=== PATIENT | male | born 1965 | race Caucasian/White ===

== ENCOUNTER → 2017-07-21 09:49 | Outpatient (CLI) | payer BC, SELFPAY ==
[2016-11-25 13:03] VITALS: BMI 32.7
[2017-07-21 11:58] LABS: Hematocrit 46.2 % (40-54); Mean Corp Hgb Conc 34.6 g/gl (32-36); Mean Corpuscular Hgb 32.3 pg (27.0-32.0); Mean Corpuscular Volume 93.3 fL (80-94); Mean Platelet Vol. 10.2 fl (6.2-12.0); Platelet Count 200 K/mm3 (150-450); RBC Distribution Width CV 13.8 % (11.6-14.6); RBC Distribution Width SD 45.8 fl (35.1-43.9); Red Blood Count 4.95 M/mm3 (4.6-6.2); Scan Indicated on CBC? Y/N NO; White Blood Count 5.6 K/mm3 (4.4-11.0)
[2017-07-21 12:08] LABS: Erythrocyte Sedimentation Rate 12 mm/hr (0-20)
[2017-07-21 12:28] LABS: ALB/GLOB Ratio 1.1 RATIO (0.9-2.4); AST(SGOT) 18 U/L (15-37); Alanine Aminotransfer ALT/SGPT 45 U/L (16-61); Albumin, Serum 4.1 g/dL (3.2-5.0); Alkaline Phosphatase 81 U/L (45-117); Anion Gap 6 (5-15); BUN 12 mg/dL (7-18); BUN/Creat Ratio 11.9 RATIO (10-20); CRP 4.83 mg/L (0.0-3.0); Calcium,Total 9.1 mg/dL (8.5-10.1); Chloride 105 mmol/L (98-107); Creatinine, Serum 1.01 mg/dL (0.70-1.30); EST Glomerular Filtration Rate 83 mL/min (>60); Est Glom Filt Rate - Afr Amer 100 mL/min (>60); Globulin 3.7 g/dL (2.2-4.2); Glucose 91 mg/dL (74-106); Potassium 3.7 mmol/L (3.5-5.1); Protein, Total 7.8 g/dL (6.4-8.2); Sodium Level 140 mmol/L (136-145)
== END ==
PROVIDERS: Family Provider Family Medicine; PCP Family Medicine
DX: Z79.899 Other long term (current) drug therapy (principal)
CPT/HCPCS: 36415; 80053; 85027; 85652; 86140

== ENCOUNTER 2018-08-22 14:56 | Observation (INO) | payer SELFPAY ==
[2016-11-25 13:03] VITALS: BMI 32.7
[2018-08-22] VITALS (11 sets, daily range): BP systolic 116–147; BP diastolic 76–97; PULSE 62–90; RESP 14–19; TEMP 36.6–37.5; O2SAT 96–100; BMI 35.6; BMI 34.7; BMI 35.7
--- NOTE | 2018-08-22 15:01 | RAD_ITS ---
STUDY: X-RAY CHEST REASON FOR EXAM: Male, 53 years old. Chest pain. TECHNIQUE: Single AP portable view of the chest. COMPARISON: 23 Oct 2016 FINDINGS: The lungs are clear and expanded. There is no demonstrated pleural abnormality. Normal size heart. Normal mediastinum and joe. Normal visualized pulmonary arteries. Normal visualized aortic arch and descending thoracic aorta. Normal visualized thoracic spine. Normal visualized ribs, clavicles, and shoulders. There is no demonstrated abnormality of the visualized soft tissue structures of the upper abdomen. RAD/Chest 1 View (Portable) IMPRESSION: No evidence of acute cardiopulmonary process. Electronically Signed: Donny Chopra DO at 15:35 EDT , Service support ,
--- NOTE | 2018-08-22 15:01 | EKG12_ITS ---
Test Reason : CP ADMISSION Blood Pressure : / mmHG Vent. Rate : 068 BPM Atrial Rate : 068 BPM P-R Int : 140 ms QRS Dur : 092 ms QT Int : 396 ms P-R-T Axes : 036 014 014 degrees QTc Int : 421 ms Normal sinus rhythm Normal ECG When compared with ECG of 22-AUG-2018 17:24, MANUAL COMPARISON REQUIRED, DATA IS UNCONFIRMED Confirmed by CRAIG JIN, SHIREEN ([id number]), greeting card editor BHUMI TRENT ([id number]) on 08/25/2018 1:20:05 PM Referred By: Bassam Escobar Confirmed By:SHIREEN SRINIVASAN MD
[2018-08-22 15:19] LABS: Absolute Lymphocyte Count 1.03 X10^3/ul (0.83-4.51); Absolute Neutrophil Count 3.4 X10^3/uL (2.0-7.7); Basophil# 0.03 X10^3/uL; Basophil% 0.6 % (0-1); Eosinophil# 0.11 X10^3/uL; Eosinophils% 2.1 % (0-5); Hematocrit 46.6 % (40-54); Hemoglobin 15.7 g/dl (13.0-16.5); Lymphocyte # 1.03 X10^3/ul (4.0); Lymphocyte % 19.8 % (19-41); Mean Corp Hgb Conc 33.7 g/gl (32-36); Mean Corpuscular Hgb 31.7 pg (27.0-32.0); Monocyte% 11.6 % (0-10); Neutrophil # 3.41 X10^3/uL (2.7-7.7); Neutrophil % 65.7 % (47-70); POSITIVE COUNT NO; POSITIVE DIFFERENTIAL NO; POSITIVE MORPHOLOGY NO; Platelet Count 168 K/mm3 (150-450); RBC Distribution Width CV 14.4 % (11.6-14.6); RBC Distribution Width SD 48.4 fl (35.1-43.9); Red Blood Count 4.96 M/mm3 (4.6-6.2); White Blood Count 5.2 K/mm3 (4.4-11.0)
[2018-08-22 16:06] LABS: Anion Gap 7 (5-15); BUN 12 mg/dL (7-18); BUN/Creat Ratio 10.2 RATIO (10-20); Calcium,Total 8.7 mg/dL (8.5-10.1); Chloride 112 mmol/L (98-107); Creatinine, Serum 1.18 mg/dL (0.70-1.30); EST Glomerular Filtration Rate 69 mL/min (>60); Est Glom Filt Rate - Afr Amer 83 mL/min (>60); Estimated Creatinine Clearance 68.47 ml/min; Glucose 130 mg/dL (74-106); Potassium 3.8 mmol/L (3.5-5.1); Sodium Level 144 mmol/L (136-145)
--- NOTE | 2018-08-22 16:16 | ED.DCSUM_ITS ---
- ER Visit Summary Date of Service: 08/22/18 Chief Complaint: [Chest pain] History of Present Illness: The patient is a 53 M [presents the emergency department complaint of chest discomfort that started this morning. Patient had intermittent episodes lasting anywhere from 10-15 seconds or longer at times. Patient describes it as a tightness exam was given him a bear hug with some sharp component at times. Patient also has had discomfort into his left arm. He is felt nauseated and short of breath. Patient states symptoms are similar to what he experienced prior to needing cardiac stents several years ago. Patient denies recent travel or surgery. He has no DVT history. Patient does have a history of coronary artery disease, hypertension, high cholesterol, and cardiac stents. He denies any fever or cough or recent illness.] Physical Examination: [HEENT-PERRLA, EOMI. Cranial nerves II through XII grossly intact. TMs clear. Mucous membranes moist. No adenopathy. Cardiovascular-regular rate and rhythm without murmur or ectopy Lungs-clear to auscultation, chest wall stable without crepitus or subcu emphysema Abdomen-normoactive bowel sounds, soft, nontender, no rebound or rigidity, no peritoneal signs. Extremities-intact ?4, normal range of motion, normal pulses, atraumatic] Test Results: [EKG obtained arrival shows sinus rhythm with a ventricular rate of 92 bpm with no acute I segment changes. CBC with differential is normal. C hemistries were normal. Troponin was less than 0.015. Chest x-ray showed nothing acute.] Emergency Department Course and Treatment: [Patient had already taken Plavix today and he took aspirin last evening. I did order patient sublingual nitroglycerin however when the nurse attempted to give it he stated that his pain had resolved and it has been intermittent.] Treatment Plan: [Case will be discussed with hospitalist will evaluate patient for admission] Disposition: [Admit] Impression: [Chest pain-rule out acute coronary syndrome] This note was generated with [employer] dictation software. It may contain incorrect words, spelling, and punctuation that were not noted in review of the chart prior to signing ED Disposition - Plan for ED Patient: Referrals: Mendoza Harris [Primary Care Provider] -
--- NOTE | 2018-08-22 16:27 | PCM.HP.STD ---
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 transplanted heart: [place] heart Qualified Code(s): I25.119 - Atherosclerotic heart disease of [place] coronary artery with unspecified angina pectoris Comment: PCI-FLORY-Mid LAD 11/25/2016 [id number], MId and 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 06/25/2016 (5) Hypercholesterolemia Status: Chronic (6) Non-STEMI (non-ST elevated myocardial infarction) Status: Chronic History of Present Illness Date of Admission: 08/22/18 Chief Complaint: Chest pain. The patient is a 53 year old M who presents emergency room due to chest pain. Patient states he has had chest pain since 6:30 this morning. He describes both sharp and pressure-like pain with radiation down left arm. He states his symptoms feel similar to past AL which required stenting. He follows with Dr. Monge. Additionally, he reports ongoing shortness of breath and fatigue with minimal exertion. He states he gets short of breath even with showering. He denies dizziness, lightheadedness, palpitations. He does report he has had increased alcohol intake recently. He states he drinks about four 24 ounce beers most days. His last stress test was in May 2017 which was normal. He has a past medical history of CAD status post stents, hyperlipidemia, obstructive sleep apnea, hypertension, arthritis. Past Medical History Past Medical History (Chronic Problems): Chronic Problems (Last Updated 08/19/18 @ 12:42 by Enid Murphy) Hypertension (Chronic) 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) History of coronary artery stent placement (Chronic 11/25/16) PCI-FLORY-Mid LAD with 3.00 x 24 synergy FLORY 11/25/2016; [id number], Mid and Distal RCA all with 3.0 x 28 mm Promus synergy stents 06/25/16; Atherosclerotic heart disease [place]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 (Chronic) PCI-FLORY-Mid LAD 11/25/2016 [id number], MId and 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 06/25/2016 Hypercholesterolemia (Chronic) Non-STEMI (non-ST elevated myocardial infarction) (Chronic) Medical History: Medical History (Last Updated 08/19/18 @ 12:42 by Enid Murphy) Hypertension (Chronic) I10 dissection of coronary into ascending aorta (Chronic) Onset Date: 06/25/16 Atherosclerotic heart disease [place]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 (Chronic) I25.119 PCI-FLORY-Mid LAD 11/25/2016 [id number], MId and 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 06/25/2016 Hypercholesterolemia (Chronic) E78.00 Non-STEMI (non-ST elevated myocardial infarction) (Chronic) I21.4 BPH (benign prostatic hyperplasia) N40.0 GERD (gastroesophageal reflux disease) K21.9 Inflammatory polyarthropathy M06.4 Allergies atorvastatin [From Lipitor] Adverse Reaction (Severe, Verified 08/19/18 12:43) mylagias hydrocodone bitartrate [From Vicodin] Adverse Reaction (Intermediate, Verified 08/19/18 12:43) Itching pravastatin Adverse Reaction (Verified 08/19/18 12:43) GI upset and sore mouth Home Medications: Ambulatory Orders Medication Instructions Recorded Trazodone HCl 75 mg PO QHS 06/24/16 Nitroglycerin 0.4 mg SL PRN PRN 08/11/16 aspirin 81 mg chewable tablet 81 mg PO DAILY@0800 #90 tab 11/30/17 clopidogrel 75 mg tablet 75 mg PO DAILY #30 tab 11/30/17 doxazosin 4 mg tablet 4 mg PO QHS #30 tab 11/30/17 losartan 25 mg tablet 25 mg PO QDAY #30 tab 11/30/17 Metoprolol Tartrate 25 mg PO DAILY 08/22/18 Omeprazole Magnesium [Prilosec Otc] 20 mg PO DAILY 08/22/18 Surgical History: Surgical History (Last Updated 08/19/18 @ 12:42 by Enid Murphy) History of coronary artery stent placement (Chronic) Onset Date: 11/25/16 Z95.5 PCI-FLORY-Mid LAD with 3.00 x 24 synergy FLORY 11/25/2016; [id number], Mid and Distal RCA all with 3.0 x 28 mm Promus synergy stents 06/25/16; Hx of hand surgery Z98.890 secondary to crushing injury Surgical History: - - right shoulder surgeries, right wrist surgery after crush injury, left wrist surg, right knee arthroplastic surgery, coronary artery stent placement. Psychiatric History: No pertinent psych hx Lives: Spouse/ Significant Other Smoking Status: Never smoker Alcohol: Heavy Drugs: None - *Family History Maternal Family History: Family History (Last Reviewed 08/22/18 @ 16:55 by ANTONIO Cross) Mother CAD (coronary artery disease) Rheumatic fever Brother CAD (coronary artery disease) History Items: - - Valve replacement secondary to rheumatic fever. Denies known maternal coronary artery disease. Paternal Family History: Family History (Last Reviewed 08/22/18 @ 16:55 by ANTONIO Cross) Mother CAD (coronary artery disease) Rheumatic fever Brother CAD (coronary artery disease) History Items: - - Denies known paternal cardiac history. Review of Systems Constitutional: Reports: Fatigue. Denies: Chills, Fever, Weight Change HEENT: Denies: Head Aches, Sinus Congestion, Sinus Drainage Cardiovascular: Reports: Chest Pain, Chest Pressure. Denies: Edema, Light Headedness, Palpitations, Syncope Respiratory: Reports: Shortness of breath upon exertion. Denies: Cough, Shortness of breath at rest, Sputum production Gastrointestinal: Denies: Abdominal Pain, Nausea, Vomiting Genitourinary: Denies: Dysuria Musculoskeletal: Reports: - - Generalized pain secondary to diffuse arthritis. Skin: Denies: Rash, Wounds Neurological: Denies: Numbness, Tingling, Focal weakness Psychiatric: Denies: Anxiety, Depression, Homicidal Ideations, Suicidal Ideations Hematologic/ Lymphatic: Denies: Easy Bruising, Easy Bleeding VTE Information - Inpt Only VTE Present on Admission: No VTE Mechan Device Prophylaxis: None VTE Pharm Prophylaxis ordered?: Yes - Physical Exam General: Alert, Oriented x3, Cooperative HEENT: Atraumatic, PERRLA, EOMI, Normocephalic Neck: Supple, No JVD, Negative Carotid Bruits Lungs: Clear to auscultation, Normal air movement Cardiovascular: Regular rate, Regular Rhythm, Normal S1, Normal S2, No murmurs Abdomen: Bowel Sounds Present, Soft, Non Tender, Non-Distended, Obese Extremities: No clubbing, No cyanosis, No edema, Capillary Refill Less than 3 Seconds Skin: No rashes, No breakdown Musculoskeletal: No Tenderness to Palpation of Joints or Extremities Neurological: Cranial nerves II-XII grossly intact, Neuro grossly intact Psych/Mental Status: Normal Affect, Appropriate Vital Signs Temp Pulse Resp BP Pulse Ox 99.5 F H 77 14 129/77 H 96 08/22/18 14:57 08/22/18 16:18 08/22/18 16:18 08/22/18 16:18 08/22/18 16:18 Oxygen Flow Rate (L/min) 2 Oxygen Delivery Method Nasal Cannula Weight: 227 lb 15.327 oz Body Mass Index (BMI) 35.6 Laboratory Tests Past 24 Hrs 08/22/18 08/22/18 15:07 15:07 WBC 5.2 RBC 4.96 Hgb 15.7 Hct 46.6 MCV 94.0 MCH 31.7 MCHC 33.7 RDW 14.4 RDW Differential 48.4 H Plt Count 168 MPV 10.0 Immature Gran % (Auto) 0.200 Neut % (Auto) 65.7 Lymph % (Auto) 19.8 Sharp % (Auto) 11.6 H Eos % (Auto) 2.1 Baso % (Auto) 0.6 Absolute Neuts (auto) 3.4 Absolute Lymphs (auto) 1.03 Total Counted Not Reportable Sodium 144 Potassium 3.8 Chloride 112 H Carbon Dioxide 25.0 Anion Gap 7 BUN 12 Creatinine 1.18 Estim Creat Clear Calc 68.47 Est GFR (MDRD) Af Amer 83 Est GFR (MDRD) Non-Af 69 BUN/Creatinine Ratio 10.2 Glucose 130 H Calcium 8.7 Troponin I < 0.015 Assessment/Plan 1. Chest pain, history of CAD status post stent to RCA and LAD-follows with Dr. Monge. Continue aspirin, plavix, beta adriano. Reported allergy to statin. Check fasting lipid panel. Trend enzymes. Repeat EKG in a.m. Stress test in a.m. Cardiology consult if stress test abnormal. 2. Hypertension- stable, continue home doxazosin, losartan, metoprolol. 3. Hyperlipidemia- Continue statin. 4. Obstructive sleep apnea-patient underwent sleep study January 2017 which recommended CPAP and avoiding sedating agents including alcohol. Patient not using CPAP. 5. Diffuse Arthritis-patient reports he has been on long-term disability secondary to physical debility as a result of diffuse arthritis. Encouraged outpatient follow up with ortho/pain management. 6. Obesity-encouraged diet and lifestyle modifications. DVT prophylaxis-Lovenox sc This patient was seen by ANTONIO Cross under the supervision of Dr. Escobar. <Bassam Escobar - Last Filed: 08/22/18 17:37> History of Present Illness The patient is a 53 year old M came to ED with chest pain since 6:30 AM. I agree with the characteristics of the chest pain as described above, sharp pressure-like with radiation down to the left arm while he was sitting, associated with mild shortness of breath. Patient also said he is having similar chest pain since November 2016 when he had the last chest pain sometimes with exertion and sometimes even at rest. Patient had last stress test in May 2017 which was normal. [] Past Medical History Medical History: Medical History (Last Updated 08/19/18 @ 12:42 by Enid Murphy) Hypertension (Chronic) I10 dissection of coronary into ascending aorta (Chronic) Onset Date: 06/25/16 Atherosclerotic heart disease [place]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 (Chronic) I25.119 PCI-FLORY-Mid LAD 11/25/2016 [id number], MId and 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 06/25/2016 Hypercholesterolemia (Chronic) E78.00 Non-STEMI (non-ST elevated myocardial infarction) (Chronic) I21.4 BPH (benign prostatic hyperplasia) N40.0 GERD (gastroesophageal reflux disease) K21.9 Inflammatory polyarthropathy M06.4 Allergies atorvastatin [From Lipitor] Adverse Reaction (Severe, Verified 08/19/18 12:43) mylagias hydrocodone bitartrate [From Vicodin] Adverse Reaction (Intermediate, Verified 08/19/18 12:43) Itching pravastatin Adverse Reaction (Verified 08/19/18 12:43) GI upset and sore mouth Surgical History: Surgical History (Last Updated 08/19/18 @ 12:42 by Enid Murphy) History of coronary artery stent placement (Chronic) Onset Date: 11/25/16 Z95.5 PCI-FLORY-Mid LAD with 3.00 x 24 synergy FLORY 11/25/2016; [id number], Mid and Distal RCA all with 3.0 x 28 mm Promus synergy stents 06/25/16; Hx of hand surgery Z98.890 secondary to crushing injury - *Family History Maternal Family History: Family History (Last Reviewed 08/22/18 @ 16:55 by ANTONIO Cross) Mother CAD (coronary artery disease) Rheumatic fever Brother CAD (coronary artery disease) Paternal Family History: Family History (Last Reviewed 08/22/18 @ 16:55 by ANTONIO Cross) Mother CAD (coronary artery disease) Rheumatic fever Brother CAD (coronary artery disease) - Physical Exam General: Alert, Oriented x3, Cooperative HEENT: Atraumatic, PERRLA, EOMI, Normocephalic Neck: Supple, No JVD, Negative Carotid Bruits Lungs: Clear to auscultation, Normal air movement Cardiovascular: Regular rate, No murmurs Abdomen: Bowel Sounds Present, Soft, Non Tender, Non-Distended Extremities: No edema, Capillary Refill Less than 3 Seconds Skin: No rashes, No breakdown Musculoskeletal: No Tenderness to Palpation of Joints or Extremities Lymphatic: No Cervical, Supraclavicular, or Inguinal Adenopathy Neurological: Cranial nerves II-XII grossly intact, Deep Tendon Reflexes 2+/4 and Symmetrical, Neuro grossly intact, Motor Exam 5/5 strength throughout Psych/Mental Status: Normal Affect, Appropriate Vital Signs Temp Pulse Resp BP Pulse Ox 99.5 F H 77 14 137/97 H 97 08/22/18 14:57 08/22/18 17:01 08/22/18 17:01 08/22/18 17:01 08/22/18 17:01 Oxygen Flow Rate (L/min) 2 Oxygen Delivery Method Nasal Cannula Weight: 227 lb 15.327 oz Body Mass Index (BMI) 35.6 Laboratory Tests Past 24 Hrs 08/22/18 08/22/18 15:07 15:07 WBC 5.2 RBC 4.96 Hgb 15.7 Hct 46.6 MCV 94.0 MCH 31.7 MCHC 33.7 RDW 14.4 RDW Differential 48.4 H Plt Count 168 MPV 10.0 Immature Gran % (Auto) 0.200 Neut % (Auto) 65.7 Lymph % (Auto) 19.8 Sharp % (Auto) 11.6 H Eos % (Auto) 2.1 Baso % (Auto) 0.6 Absolute Neuts (auto) 3.4 Absolute Lymphs (auto) 1.03 Total Counted Not Reportable Sodium 144 Potassium 3.8 Chloride 112 H Carbon Dioxide 25.0 Anion Gap 7 BUN 12 Creatinine 1.18 Estim Creat Clear Calc 68.47 Est GFR (MDRD) Af Amer 83 Est GFR (MDRD) Non-Af 69 BUN/Creatinine Ratio 10.2 Glucose 130 H Calcium 8.7 Troponin I < 0.015 Assessment/Plan This patient was seen in conjunction with Beatriz GRANT. I have independently interviewed and examined the patient and reviewed pertinent history, examination findings, laboratory and plan of management. I have reviewed the note and agree with the documented findings with the few additional points. In brief, patient is admitted for chest pain with radiation to left arm associated by shortness of breath. Patient EKG shows normal sinus rhythm at 92 bpm. No change from previous EKG of December 2016. Repeat EKG and nuclear stress test tomorrow morning I have discussed my assessment with Beatriz GRANT and orders have been reviewed. Code Visit OBSV E&M: 29563 Initial observation care L3
--- NOTE | 2018-08-22 16:47 | HP.PCM_ITS ---
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 transplanted heart: [place] heart Qualified Code(s): I25.119 - Atherosclerotic heart disease of [place] coronary artery with unspecified angina pectoris Comment: PCI-FLORY-Mid LAD 11/25/2016 [id number], MId and 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 06/25/2016 (5) Hypercholesterolemia Status: Chronic (6) Non-STEMI (non-ST elevated myocardial infarction) Status: Chronic History of Present Illness Date of Admission: 08/22/18 Chief Complaint: Chest pain. The patient is a 53 year old M who presents emergency room due to chest pain. Patient states he has had chest pain since 6:30 this morning. He describes both sharp and pressure-like pain with radiation down left arm. He states his symptoms feel similar to past [facility] which required stenting. He follows with Dr. Monge. Additionally, he reports ongoing shortness of breath and fatigue with minimal exertion. He states he gets short of breath even with showering. He denies dizziness, lightheadedness, palpitations. He does report he has had increased alcohol intake recently. He states he drinks about four 24 ounce beers most days. His last stress test was in May 2017 which was normal. He has a past medical history of CAD status post stents, hyperlipidemia, o bstructive sleep apnea, hypertension, arthritis. Past Medical History Past Medical History (Chronic Problems): Chronic Problems (Last Updated 08/19/18 @ 12:42 by Enid Murphy) Hypertension (Chronic) 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) History of coronary artery stent placement (Chronic 11/25/16) PCI-FLORY-Mid LAD with 3.00 x 24 synergy FLORY 11/25/2016; [id number], Mid and Distal RCA all with 3.0 x 28 mm Promus synergy stents 06/25/16; Atherosclerotic heart disease [place]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 (Chronic) PCI-FLORY-Mid LAD 11/25/2016 [id number], MId and 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 06/25/2016 Hypercholesterolemia (Chronic) Non-STEMI (non-ST elevated myocardial infarction) (Chronic) Medical History: Medical History (Last Updated 08/19/18 @ 12:42 by Enid Murphy) Hypertension (Chronic) I10 dissection of coronary into ascending aorta (Chronic) Onset Date: 06/25/16 Atherosclerotic heart disease [place]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 (Chronic) I25.119 PCI-FLORY-Mid LAD 11/25/2016 [id number], MId and 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 06/25/2016 Hypercholesterolemia (Chronic) E78.00 Non-STEMI (non-ST elevated myocardial infarction) (Chronic) I21.4 BPH (benign prostatic hyperplasia) N40.0 GERD (gastroesophageal reflux disease) K21.9 Inflammatory polyarthropathy M06.4 Allergies atorvastatin [From Lipitor] Adverse Reaction (Severe, Verified 08/19/18 12:43) mylagias hydrocodone bitartrate [From Vicodin] Adverse Reaction (Intermediate, Verified 08/19/18 12:43) Itching pravastatin Adverse Reaction (Verified 08/19/18 12:43) GI upset and sore mouth Home Medications: Ambulatory Orders Medication Instructions Recorded Trazodone HCl 75 mg PO QHS 06/24/16 Nitroglycerin 0.4 mg SL PRN PRN 08/11/16 aspirin 81 mg chewable tablet 81 mg PO DAILY@0800 #90 tab 11/30/17 clopidogrel 75 mg tablet 75 mg PO DAILY #30 tab 11/30/17 doxazosin 4 mg tablet 4 mg PO QHS #30 tab 11/30/17 losartan 25 mg tablet 25 mg PO QDAY #30 tab 11/30/17 Metoprolol Tartrate 25 mg PO DAILY 08/22/18 Omeprazole Magnesium [Prilosec Otc] 20 mg PO DAILY 08/22/18 Surgical History: Surgical History (Last Updated 08/19/18 @ 12:42 by Enid Murphy) History of coronary artery stent placement (Chronic) Onset Date: 11/25/16 Z95.5 PCI-FLORY-Mid LAD with 3.00 x 24 synergy FLORY 11/25/2016; [id number], Mid and Distal RCA all with 3.0 x 28 mm Promus synergy stents 06/25/16; Hx of hand surgery Z98.890 secondary to crushing injury Surgical History: - - right shoulder surgeries, right wrist surgery after crush injury, left wrist surg, right knee arthroplastic surgery, coronary artery stent placement. Psychiatric History: No pertinent psych hx Lives: Spouse/ Significant Other Smoking Status: Never smoker Alcohol: Heavy Drugs: None - *Family History Maternal Family History: Family History (Last Reviewed 08/22/18 @ 16:55 by ANTONIO Cross) Mother CAD (coronary artery disease) Rheumatic fever Brother CAD (coronary artery disease) History Items: - - Valve replacement secondary to rheumatic fever. Denies known maternal coronary artery disease. Paternal Family History: Family History (Last Reviewed 08/22/18 @ 16:55 by ANTONIO Cross) Mother CAD (coronary artery disease) Rheumatic fever Brother CAD (coronary artery disease) History Items: - - Denies known paternal cardiac history. Review of Systems Constitutional: Reports: Fatigue. Denies: Chills, Fever, Weight Change HEENT: Denies: Head Aches, Sinus Congestion, Sinus Drainage Cardiovascular: Reports: Chest Pain, Chest Pressure. Denies: Edema, Light Headedness, Palpitations, Syncope Respiratory: Reports: Shortness of breath upon exertion. Denies: Cough, Shortness of breath at rest, Sputum production Gastrointestinal: Denies: Abdominal Pain, Nausea, Vomiting Genitourinary: Denies: Dysuria Musculoskeletal: Reports: - - Generalized pain secondary to diffuse arthritis. Skin: Denies: Rash, Wounds Neurological: Denies: Numbness, Tingling, Focal weakness Psychiatric: Denies: Anxiety, Depression, Homicidal Ideations, Suicidal Ideations Hematologic/ Lymphatic: Denies: Easy Bruising, Easy Bleeding VTE Information - Inpt Only VTE Present on Admission: No VTE Mechan Device Prophylaxis: None VTE Pharm Prophylaxis ordered?: Yes - Physical Exam General: Alert, Oriented x3, Cooperative HEENT: Atraumatic, PERRLA, EOMI, Normocephalic Neck: Supple, No JVD, Negative Carotid Bruits Lungs: Clear to auscultation, Normal air movement Cardiovascular: Regular rate, Regular Rhythm, Normal S1, Normal S2, No murmurs Abdomen: Bowel Sounds Present, Soft, Non Tender, Non-Distended, Obese Extremities: No clubbing, No cyanosis, No edema, Capillary Refill Less than 3 Seconds Skin: No rashes, No breakdown Musculoskeletal: No Tenderness to Palpation of Joints or Extremities Neurological: Cranial nerves II-XII grossly intact, Neuro grossly intact Psych/Mental Status: Normal Affect, Appropriate Vital Signs Temp Pulse Resp BP Pulse Ox 99.5 F H 77 14 129/77 H 96 08/22/18 14:57 08/22/18 16:18 08/22/18 16:18 08/22/18 16:18 08/22/18 16:18 Oxygen Flow Rate (L/min) 2 Oxygen Delivery Method Nasal Cannula Weight: 227 lb 15.327 oz Body Mass Index (BMI) 35.6 Laboratory Tests Past 24 Hrs 08/22/18 08/22/18 15:07 15:07 WBC 5.2 RBC 4.96 Hgb 15.7 Hct 46.6 MCV 94.0 MCH 31.7 MCHC 33.7 RDW 14.4 RDW Differential 48.4 H Plt Count 168 MPV 10.0 Immature Gran % (Auto) 0.200 Neut % (Auto) 65.7 Lymph % (Auto) 19.8 War[place] % (Auto) 11.6 H Eos % (Auto) 2.1 Baso % (Auto) 0.6 Absolute Neuts (auto) 3.4 Absolute Lymphs (auto) 1.03 Total Counted Not Reportable Sodium 144 Potassium 3.8 Chloride 112 H Carbon Dioxide 25.0 Anion Gap 7 BUN 12 Creatinine 1.18 Estim Creat Clear Calc 68.47 Est GFR (MDRD) Af Amer 83 Est GFR (MDRD) Non-Af 69 BUN/Creatinine Ratio 10.2 Glucose 130 H Calcium 8.7 Troponin I < 0.015 Assessment/Plan 1. Chest pain, history of CAD status post stent to RCA and LAD-follows with Dr. Monge. Continue aspirin, plavix, beta adriano. Reported allergy to statin. Check fasting lipid panel. Trend enzymes. Repeat EKG in a.m. Stress test in a.m. Cardiology consult if stress test abnormal. 2. Hypertension- stable, continue home doxazosin, losartan, metoprolol. 3. Hyperlipidemia- Continue statin. 4. Obstructive sleep apnea-patient underwent sleep study January 2017 which recommended CPAP and avoiding sedating agents including alcohol. Patient not using CPAP. 5. Diffuse Arthritis-patient reports he has been on long-term disability secondary to physical debility as a result of diffuse arthritis. Encouraged outpatient follow up with ortho/pain management. 6. Obesity-encouraged diet and lifestyle modifications. DVT prophylaxis-Lovenox sc This patient was seen by ANTONIO Cross under the supervision of Dr. Escobar. <Bassam Escobar - Last Filed: 08/22/18 17:37> History of Present Illness The patient is a 53 year old M came to ED with chest pain since 6:30 AM. I agree with the characteristics of the chest pain as described above, sharp pressure-like with radiation down to the left arm while he was sitting, associated with mild shortness of breath. Patient also said he is having similar chest pain since November 2016 when he had the last chest pain sometimes with exertion and sometimes even at rest. Patient had last stress test in May 2017 which was normal. [] Past Medical History Medical History: Medical History (Last Updated 08/19/18 @ 12:42 by Enid Murphy) Hypertension (Chronic) I10 dissection of coronary into ascending aorta (Chronic) Onset Date: 06/25/16 Atherosclerotic heart disease [place]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 (Chronic) I25.119 PCI-FLORY-Mid LAD 11/25/2016 [id number], MId and 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 06/25/2016 Hypercholesterolemia (Chronic) E78.00 Non-STEMI (non-ST elevated myocardial infarction) (Chronic) I21.4 BPH (benign prostatic hyperplasia) N40.0 GERD (gastroesophageal reflux disease) K21.9 Inflammatory polyarthropathy M06.4 Allergies atorvastatin [From Lipitor] Adverse Reaction (Severe, Verified 08/19/18 12:43) mylagias hydrocodone bitartrate [From Vicodin] Adverse Reaction (Intermediate, Verified 08/19/18 12:43) Itching pravastatin Adverse Reaction (Verified 08/19/18 12:43) GI upset and sore mouth Surgical History: Surgical History (Last Updated 08/19/18 @ 12:42 by Enid Murphy) History of coronary artery stent placement (Chronic) Onset Date: 11/25/16 Z95.5 PCI-FLORY-Mid LAD with 3.00 x 24 synergy FLORY 11/25/2016; [id number], Mid and Distal RCA all with 3.0 x 28 mm Promus synergy stents 06/25/16; Hx of hand surgery Z98.890 secondary to crushing injury - *Family History Maternal Family History: Family History (Last Reviewed 08/22/18 @ 16:55 by ANTONIO Cross) Mother CAD (coronary artery disease) Rheumatic fever Brother CAD (coronary artery disease) Paternal Family History: Family History (Last Reviewed 08/22/18 @ 16:55 by ANTONIO Cross) Mother CAD (coronary artery disease) Rheumatic fever Brother CAD (coronary artery disease) - Physical Exam General: Alert, Oriented x3, Cooperative HEENT: Atraumatic, PERRLA, EOMI, Normocephalic Neck: Supple, No JVD, Negative Carotid Bruits Lungs: Clear to auscultation, Normal air movement Cardiovascular: Regular rate, No murmurs Abdomen: Bowel Sounds Present, Soft, Non Tender, Non-Distended Extremities: No edema, Capillary Refill Less than 3 Seconds Skin: No rashes, No breakdown Musculoskeletal: No Tenderness to Palpation of Joints or Extremities Lymphatic: No Cervical, Supraclavicular, or Inguinal Adenopathy Neurological: Cranial nerves II-XII grossly intact, Deep Tendon Reflexes 2+/4 and Symmetrical, Neuro grossly intact, Motor Exam 5/5 strength throughout Psych/Mental Status: Normal Affect, Appropriate Vital Signs Temp Pulse Resp BP Pulse Ox 99.5 F H 77 14 137/97 H 97 08/22/18 14:57 08/22/18 17:01 08/22/18 17:01 08/22/18 17:01 08/22/18 17:01 Oxygen Flow Rate (L/min) 2 Oxygen Delivery Method Nasal Cannula Weight: 227 lb 15.327 oz Body Mass Index (BMI) 35.6 Laboratory Tests Past 24 Hrs 08/22/18 08/22/18 15:07 15:07 WBC 5.2 RBC 4.96 Hgb 15.7 Hct 46.6 MCV 94.0 MCH 31.7 MCHC 33.7 RDW 14.4 RDW Differential 48.4 H Plt Count 168 MPV 10.0 Immature Gran % (Auto) 0.200 Neut % (Auto) 65.7 Lymph % (Auto) 19.8 [place] % (Auto) 11.6 H Eos % (Auto) 2.1 Baso % (Auto) 0.6 Absolute Neuts (auto) 3.4 Absolute Lymphs (auto) 1.03 Total Counted Not Reportable Sodium 144 Potassium 3.8 Chloride 112 H Carbon Dioxide 25.0 Anion Gap 7 BUN 12 Creatinine 1.18 Estim Creat Clear Calc 68.47 Est GFR (MDRD) Af Amer 83 Est GFR (MDRD) Non-Af 69 BUN/Creatinine Ratio 10.2 Glucose 130 H Calcium 8.7 Troponin I < 0.015 Assessment/Plan This patient was seen in conjunction with Beatriz GRANT. I have independently interviewed and examined the patient and reviewed pertinent history, examination findings, laboratory and plan of management. I have reviewed the note and agree with the documented findings with the few additional points. In brief, patient is admitted for chest pain with radiation to left arm associated by shortness of breath. Patient EKG shows normal sinus rhythm at 92 bpm. No change from previous EKG of December 2016. Repeat EKG and nuclear stress test tomorrow morning I have discussed my assessment with Beatriz GRANT and orders have been reviewed. Code Visit OBSV E&M: 34434 Initial observation care L3
--- NOTE | 2018-08-22 17:30 | ED.RN ---
PT CALLED OUT, STS HAVING CP . REPEAT ASSESSMENT AND EKG COMPLETED. NO CHANGES FROM INITIAL. PAIN NOW SUBSIDED AFTER 1-[address] HILLMAN NOTIFIED.
--- NOTE | 2018-08-22 17:31 | EKG12_ITS ---
Test Reason : REPEAT EKG Blood Pressure : / mmHG Vent. Rate : 074 BPM Atrial Rate : 074 BPM P-R Int : 136 ms QRS Dur : 094 ms QT Int : 392 ms P-R-T Axes : 027 011 017 degrees QTc Int : 435 ms Normal sinus rhythm Normal ECG Confirmed by SHIREEN SRINIVASAN MD ([id number]), editor managing newspaper BHUMI TRENT ([id number]) on 08/23/2018 4:08:24 PM Referred By: Bassam Escobar Confirmed By:SHIREEN SRINIVASAN MD
--- NOTE | 2018-08-22 18:45 | EKG12_ITS ---
Test Reason : CP Blood Pressure : / mmHG Vent. Rate : 092 BPM Atrial Rate : 092 BPM P-R Int : 148 ms QRS Dur : 096 ms QT Int : 372 ms P-R-T Axes : 056 007 026 degrees QTc Int : 460 ms Normal sinus rhythm Normal ECG Confirmed by SHIREEN SRINIVASAN MD ([id number]), manager editorial BHUMI TRENT ([id number]) on 08/23/2018 4:07:04 PM Referred By: Bassam Escobar Confirmed By:SHIREEN SRINIVASAN MD
[2018-08-22] MEDS: Enoxaparin 40 MG/0.4 ML Syringe SC (19:07)
[2018-08-22] MEDS: Doxazosin 4 MG Tablet PO (21:43)
[2018-08-22] MEDS: traZODone 50 MG Tablet 75 MG PO (21:43)
--- NOTE | 2018-08-23 00:07 | NURSING ---
Verbal report received for Radha Bravo RN. This RN will resume care of pt at this time.
[2018-08-23 03:04] VITALS: PULSE 57
[2018-08-23 03:48] VITALS: BP 121/79; PULSE 62; RESP 18; TEMP 36.8; O2SAT 97
[2018-08-23] MEDS: Acetaminophen 325 MG Tablet 650 MG PO (04:42)
[2018-08-23 05:29] VITALS: BP 112/77; PULSE 68; RESP 14; TEMP 36.7; O2SAT 96
[2018-08-23] MEDS: Aspirin 81 MG TAB.CHEW PO (05:31)
[2018-08-23] MEDS: Clopidogrel Bisulfate 75 MG Tablet PO (05:32)
[2018-08-23] MEDS: Losartan Potassium 25 MG Tablet PO (05:36)
--- NOTE | 2018-08-23 05:55 | EKG12_ITS ---
Test Reason : AM EKG Blood Pressure : / mmHG Vent. Rate : 064 BPM Atrial Rate : 064 BPM P-R Int : 140 ms QRS Dur : 116 ms QT Int : 418 ms P-R-T Axes : 026 010 006 degrees QTc Int : 431 ms Normal sinus rhythm Normal ECG When compared with ECG of 22-AUG-2018 17:54, MANUAL COMPARISON REQUIRED, DATA IS UNCONFIRMED Confirmed by CRAIG JIN, SHIREEN ([id number]), business editor BHUMI TRENT ([id number]) on 08/25/2018 1:18:46 PM Referred By: Bassam Escobar Confirmed By:SHIREEN SRINIVASAN MD
[2018-08-23 06:04] LABS: Anion Gap 7 (5-15); BUN 12 mg/dL (7-18); BUN/Creat Ratio 11.2 RATIO (10-20); Calcium,Total 8.4 mg/dL (8.5-10.1); Chloride 109 mmol/L (98-107); Creatinine, Serum 1.07 mg/dL (0.70-1.30); EST Glomerular Filtration Rate 77 mL/min (>60); Est Glom Filt Rate - Afr Amer 93 mL/min (>60); Estimated Creatinine Clearance 72.88 ml/min; Glucose 103 mg/dL (74-106); Potassium 3.7 mmol/L (3.5-5.1); Sodium Level 141 mmol/L (136-145)
[2018-08-23 06:12] LABS: International Normalized Ratio 1.1; Partial Thromboplast Time 28.4 Seconds (24.1-36.2); Prothrombin Time (Protime)PT. 13.7 SECONDS (11.7-14.9)
[2018-08-23 06:22] LABS: Absolute Lymphocyte Count 1.11 X10^3/ul (0.83-4.51); Basophil# 0.03 X10^3/uL; Basophil% 0.6 % (0-1); Eosinophils% 2.1 % (0-5); Hematocrit 45.2 % (40-54); Hemoglobin 15.1 g/dl (13.0-16.5); Lymphocyte # 1.11 X10^3/ul (4.0); Lymphocyte % 23.4 % (19-41); Mean Corp Hgb Conc 33.4 g/gl (32-36); Mean Corpuscular Volume 95.8 fL (80-94); Monocyte# 0.49 X10^3/uL; Monocyte% 10.3 % (0-10); Neutrophil # 3.01 X10^3/uL (2.7-7.7); Neutrophil % 63.6 % (47-70); Platelet Count 168 K/mm3 (150-450); RBC Distribution Width CV 14.7 % (11.6-14.6); RBC Distribution Width SD 49.7 fl (35.1-43.9); Red Blood Count 4.72 M/mm3 (4.6-6.2); White Blood Count 4.7 K/mm3 (4.4-11.0)
[2018-08-23 06:28] LABS: POSITIVE COUNT NO; POSITIVE DIFFERENTIAL NO; POSITIVE MORPHOLOGY NO
[2018-08-23 07:08] VITALS: PULSE 88
[2018-08-23 10:19] VITALS: BP 120/79; PULSE 72; RESP 16; TEMP 36.6; O2SAT 97
--- NOTE | 2018-08-23 10:51 | STRESSREP ---
Stress Test Report Pharmacologic myocardial perfusion stress test. 53-year-old male with a history of chest pain. Previous non-ST elevation myocardial infarction. Next Medications: Aspirin, Plavix, Lovenox, Cozaar, Lopressor. Stress protocol: Resting EKG demonstrates normal sinus rhythm with rate of 65 beats minute which was noted resting blood pressure 138/84 mmHg. 0.4 mg of regadenoson was infused. The usual protocol. At peak infusion intravenous saline was injected. Continuous EKG monitoring was performed. The maximum heart rate was 108 bpm. At rest and during peak infusion there were no ST or T wave changes noted to suggest ischemia. No clinical angina was noted. The resting blood pressure was 134/84 mmHg. The final blood pressure was 128/78 mmHg. Myocardial perfusion protocol. 14.2 mCi of process maintenance technician 90 9M sestamibi was injected at rest. 0.4 mg of regadenoson was infused. At peak infusion 44.8 mCi of technetium 99m sestamibi was injected stress images were obtained stress and rest images were reconstructed and compared in the short axis vertical and horizontal long axes. Gated images were also obtained for next Perfusion SPECT analysis: Review of the stress images demonstrated normal uptake of tracer noted in all areas of the myocardium. The rest images similarly demonstrate normal uptake of tracer noted in all areas of myocardium. No areas of reversibility and will suggest ischemia no previous infarct is noted. Gated SPECT analysis: The gated ejection fraction is noted to be 60%. Conclusion: Normal pharmacologic myocardial perfusion stress test. Preserved ejection fraction
[2018-08-23 11:14] VITALS: PULSE 72
[2018-08-23] MEDS: Pantoprazole Sodium 20 MG Tablet PO (11:14)
[2018-08-23] MEDS: Metoprolol Tartrate 25 MG Tablet PO (11:14)
--- NOTE | 2018-08-23 11:33 | CASEMGMT ---
Patient is listed as self pay. He said [employer] just spoke with him. He said she was going to do a Medicaid application for him. He gets disability from [employer]. He said he is paying for all of his healthcare out of pocket. His current medications are affordable. SW will give patient [employer] information as this is the only resource [facility] has that would be somewhat helpful. He already has a PCP and does not want to change. His medications are already $4 or $9 for a 30 day supply. Kait TORREZ MSW
--- NOTE | 2018-08-23 11:59 | PCM.DC ---
You will use the following diet at home:: Cardiac Discharge Activity: Return to Normal Activity Call your doctor if you observe: Shortness of breath, Dizziness, Fainting spells, Chest pain Allergies/Adverse Reactions: Allergies atorvastatin [From Lipitor] Adverse Reaction (Severe, Verified 08/19/18 12:43) mylagias hydrocodone bitartrate [From Vicodin] Adverse Reaction (Intermediate, Verified 08/19/18 12:43) Itching pravastatin Adverse Reaction (Verified 08/19/18 12:43) GI upset and sore mouth Medications to take at Discharge Trazodone HCl 75 mg PO QHS 06/24/16 Nitroglycerin 0.4 mg SL PRN PRN 08/11/16 aspirin 81 mg chewable tablet 81 mg PO DAILY@0800 #90 tab 11/30/17 clopidogrel 75 mg tablet 75 mg PO DAILY #30 tab 11/30/17 doxazosin 4 mg tablet 4 mg PO QHS #30 tab 11/30/17 losartan 25 mg tablet 25 mg PO QDAY #30 tab 11/30/17 Metoprolol Tartrate 25 mg PO DAILY 08/22/18 Omeprazole Magnesium [Prilosec Otc] 20 mg PO DAILY 08/22/18 Primary Care Physician: Mendoza Harris [Primary Care Provider] - Please follow up with your Primary Care Physician in: 1 Week Test Results: Test results from this visit will be discussed in further detail at your follow-up appointment, if applicable. Please Follow Up With: Chato Monge MD When: Next week Please Follow Up With: Antoni Woods MD When: Pain management for diffuse arthritis Proposed Discharge Date: 08/23/18
--- NOTE | 2018-08-23 12:03 | DCINST_ITS ---
You will use the following diet at home:: Cardiac Discharge Activity: Return to Normal Activity Call your doctor if you observe: Shortness of breath, Dizziness, Fainting spells, Chest pain Allergies/Adverse Reactions: Allergies atorvastatin [From Lipitor] Adverse Reaction (Severe, Verified 08/19/18 12:43) mylagias hydrocodone bitartrate [From Vicodin] Adverse Reaction (Intermediate, Verified 08/19/18 12:43) Itching pravastatin Adverse Reaction (Verified 08/19/18 12:43) GI upset and sore mouth Medications to take at Discharge Trazodone HCl 75 mg PO QHS 06/24/16 Nitroglycerin 0.4 mg SL PRN PRN 08/11/16 aspirin 81 mg chewable tablet 81 mg PO DAILY@0800 #90 tab 11/30/17 clopidogrel 75 mg tablet 75 mg PO DAILY #30 tab 11/30/17 doxazosin 4 mg tablet 4 mg PO QHS #30 tab 11/30/17 losartan 25 mg tablet 25 mg PO QDAY #30 tab 11/30/17 Metoprolol Tartrate 25 mg PO DAILY 08/22/18 Omeprazole Magnesium [Prilosec Otc] 20 mg PO DAILY 08/22/18 Primary Care Physician: Mendoza Harris [Primary Care Provider] - Please follow up with your Primary Care Physician in: 1 Week Test Results: Test results from this visit will be discussed in further detail at your follow- up appointment, if applicable. Please Follow Up With: Chato Monge MD When: Next week Please Follow Up With: Antoni Woods MD When: Pain management for diffuse arthritis Proposed Discharge Date: 08/23/18
--- NOTE | 2018-08-23 12:05 | PCM.DC.SUM ---
<Beatriz Barbour - Last Filed: 08/23/18 12:12> Discharge Date and Diagnosis Date of Admission: 08/22/18 Date of Discharge: 08/23/18 - Primary Discharge Diagnosis 1. Chest pain, history of CAD status post stent to RCA and LAD- ACS ruled out. 2. Hypertension 3. Hyperlipidemia 4. Obstructive sleep apnea 5. Diffuse Arthritis 6. 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) History of coronary artery stent placement (Chronic 11/25/16) PCI-FLORY-Mid LAD with 3.00 x 24 synergy FLORY 11/25/2016; [id number], Mid and Distal RCA all with 3.0 x 28 mm Promus synergy stents 06/25/16; Atherosclerotic heart disease [place]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 (Chronic) PCI-FLORY-Mid LAD 11/25/2016 [id number], MId and 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 06/25/2016 Hypercholesterolemia (Chronic) Non-STEMI (non-ST elevated myocardial infarction) (Chronic) Hospital Course and Treatment Imaging Results: Diagnostic Data Chest X-Ray 08/22/18 15:01 IMPRESSION: No evidence of acute cardiopulmonary process. Electronically Signed: Donny Chopra DO at 15:35 EDT , Service support , Operations: None Procedures: Stress test Summary of Care Provided: The patient is a 53 year old M admitted 08/22/2018 due to chest pain. 1. Chest pain, history of CAD status post stent to RCA and LAD-follows with Dr. Monge. Continue aspirin, plavix, beta adriano. Reported allergy to statin. Chronic negative. EKG without ST-T changes. Patient underwent nuclear stress test which was negative for ischemia. ACS ruled out. He reported he was unable to do treadmill stress test due to pain from arthritis. Patient was to have outpatient follow-up with Dr. Monge day of discharge. Dr. Monge notified of patient's admission. He will follow-up in office next week. Follow-up with primary care physician in 1 week. 2. Hypertension- stable, continue home doxazosin, losartan, metoprolol. 3. Hyperlipidemia- Continue statin. 4. Obstructive sleep apnea-patient underwent sleep study January 2017 which recommended CPAP and avoiding sedating agents including alcohol. Patient not using CPAP. Admits to drinking 3-4 24oz beers per day. 5. Diffuse Arthritis-patient reports he has been on long-term disability secondary to physical debility as a result of diffuse arthritis. Encouraged outpatient follow up with ortho/pain management. 6. Obesity-encouraged diet and lifestyle modifications. Discussed that weight loss may improve his chronic pain from arthritis. General: Alert, Oriented x3, Cooperative HEENT: Atraumatic, PERRLA, EOMI, Normocephalic Neck: Supple, No JVD, Negative Carotid Bruits Lungs: Clear to auscultation, Normal air movement Cardiovascular: Regular rate, Regular Rhythm, Normal S1, Normal S2, No murmurs Abdomen: Bowel Sounds Present, Soft, Non Tender, Non-Distended, Obese Extremities: No clubbing, No cyanosis, No edema, Capillary Refill Less than 3 Seconds Skin: No rashes, No breakdown Musculoskeletal: No Tenderness to Palpation of Joints or Extremities Neurological: Cranial nerves II-XII grossly intact, Neuro grossly intact Psych/Mental Status: Normal Affect, Appropriate Patient seen and examined prior to discharge. Physical assessment as noted above. Patient is stable for discharge with follow up recommendations as noted above. This patient was seen by ANTONIO Cross under the supervision of Dr. Green. - Physical Exam Vital Signs Temp Pulse Resp BP Pulse Ox 97.9 F 72 16 120/79 97 08/23/18 10:19 08/23/18 11:14 08/23/18 10:19 08/23/18 10:19 08/23/18 10:19 Oxygen Flow Rate (L/min) 2 Oxygen Delivery Method Room Air Weight: 221 lb 9.033 oz Body Mass Index (BMI) 34.7 Intake and Output for Last 24 Hours 08/21/18 08/22/18 08/23/18 23:59 23:59 23:59 Intake Total 450 / 450 290 / 290 Balance 450 / 450 290 / 290 Laboratory Tests Past 24 Hrs 08/22/18 08/22/18 08/22/18 15:07 15:07 18:25 WBC 5.2 RBC 4.96 Hgb 15.7 Hct 46.6 MCV 94.0 MCH 31.7 MCHC 33.7 RDW 14.4 RDW Differential 48.4 H Plt Count 168 MPV 10.0 Immature Gran % (Auto) 0.200 Neut % (Auto) 65.7 Lymph % (Auto) 19.8 [place] % (Auto) 11.6 H Eos % (Auto) 2.1 Baso % (Auto) 0.6 Absolute Neuts (auto) 3.4 Absolute Lymphs (auto) 1.03 Total Counted Not Reportable PT INR APTT Sodium 144 Potassium 3.8 Chloride 112 H Carbon Dioxide 25.0 Anion Gap 7 BUN 12 Creatinine 1.18 Estim Creat Clear Calc 68.47 Est GFR (MDRD) Af Amer 83 Est GFR (MDRD) Non-Af 69 BUN/Creatinine Ratio 10.2 Glucose 130 H Calcium 8.7 Troponin I < 0.015 < 0.015 08/22/18 08/23/18 08/23/18 21:15 05:15 05:15 WBC 4.7 RBC 4.72 Hgb 15.1 Hct 45.2 MCV 95.8 H MCH 32.0 MCHC 33.4 RDW 14.7 H RDW Differential 49.7 H Plt Count 168 MPV 10.0 Immature Gran % (Auto) 0.000 Neut % (Auto) 63.6 Lymph % (Auto) 23.4 [place] % (Auto) 10.3 H Eos % (Auto) 2.1 Baso % (Auto) 0.6 Absolute Neuts (auto) 3.0 Absolute Lymphs (auto) 1.11 Total Counted Not Reportable PT 13.7 INR 1.1 APTT 28.4 Sodium Potassium Chloride Carbon Dioxide Anion Gap BUN Creatinine Estim Creat Clear Calc Est GFR (MDRD) Af Amer Est GFR (MDRD) Non-Af BUN/Creatinine Ratio Glucose Calcium Troponin I < 0.015 08/23/18 05:15 WBC RBC Hgb Hct MCV MCH MCHC RDW RDW Differential Plt Count MPV Immature Gran % (Auto) Neut % (Auto) Lymph % (Auto) [place] % (Auto) Eos % (Auto) Baso % (Auto) Absolute Neuts (auto) Absolute Lymphs (auto) Total Counted PT INR APTT Sodium 141 Potassium 3.7 Chloride 109 H Carbon Dioxide 25.0 Anion Gap 7 BUN 12 Creatinine 1.07 Estim Creat Clear Calc 72.88 Est GFR (MDRD) Af Amer 93 Est GFR (MDRD) Non-Af 77 BUN/Creatinine Ratio 11.2 Glucose 103 Calcium 8.4 L Troponin I Discharge Diet: Low fat/ Low Cholesterol Discharge Activity: Return to Normal Activity Call your doctor if you observe: Shortness of breath, Dizziness, Fainting spells, Chest pain Home Medications: Medications to take at Discharge Trazodone HCl 75 mg PO QHS 06/24/16 Nitroglycerin 0.4 mg SL PRN PRN 08/11/16 aspirin 81 mg chewable tablet 81 mg PO DAILY@0800 #90 tab 11/30/17 clopidogrel 75 mg tablet 75 mg PO DAILY #30 tab 11/30/17 doxazosin 4 mg tablet 4 mg PO QHS #30 tab 11/30/17 losartan 25 mg tablet 25 mg PO QDAY #30 tab 11/30/17 Metoprolol Tartrate 25 mg PO DAILY 08/22/18 Omeprazole Magnesium [Prilosec Otc] 20 mg PO DAILY 08/22/18 Primary Care Physician: Mendoza Harris [Primary Care Provider] - Please follow up with your Primary Care Physician in: 1 Week Please Follow Up With: Chato Monge MD When: Next week Please Follow Up With: Antoni Woods MD When: Pain management for diffuse arthritis Disposition: Home Minutes spent on discharge:: 35 Patient Condition:: Stable Medical Necessity - Tobacco Use Smoking Status: Never smoker Meaningful Use Info Meaningful Use Diagnoses (Choose all that apply): None applicable <Lisha Green - Last Filed: 08/23/18 15:16> Discharge Date and Diagnosis - Secondary Discharge Diagnosis Chronic Problems (Last Updated 08/19/18 @ 12:42 by Enid Murphy) Hypertension (Chronic) 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) History of coronary artery stent placement (Chronic 11/25/16) PCI-FLROY-Mid LAD with 3.00 x 24 synergy FLORY 11/25/2016; [id number], Mid and Distal RCA all with 3.0 x 28 mm Promus synergy stents 06/25/16; Atherosclerotic heart disease [place]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 (Chronic) PCI-FLORY-Mid LAD 11/25/2016 [id number], MId and 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 06/25/2016 Hypercholesterolemia (Chronic) Non-STEMI (non-ST elevated myocardial infarction) (Chronic) Hospital Course and Treatment Summary of Care Provided: Patient seen by Beatriz ALVAREZ under my supervision. The patient is a 53 year old M an extensive medical history as listed was admitted with complaint of chest pain which was pressure-like and radiating down his left arm. Stated symptoms were similar to when he had a previous [place] which required stenting. Troponins x3 were negative. He had a stress test on 08/23/2018 which was also negative. Patient remained stable and he was discharged home on 08/23/2018. His follow-up with his architectural project manager Dr. matthew. Exam patient seen and examined prior to discharge. He had no complaints and felt well. Review of systems otherwise negative. Labs and vitals reviewed. o/e: Vital Signs Height 5 ft 6.93 in Weight: 221 lb 9.033 oz Weight in Pounds 221.6 lbs BMI 32.7 Pulse Ox 97 Temperature 97.9 F Pulse Rate 72 Respiratory Rate 16 Blood Pressure [BP] 116/77 Blood Pressure 120/79 Blood Pressure Position Semi-Fowlers General: Alert, Oriented x3, Cooperative HEENT: Atraumatic, PERRLA, EOMI, Normocephalic Neck: Supple, No JVD, Negative Carotid Bruits Lungs: Clear to auscultation, Normal air movement Cardiovascular: Regular rate, Regular Rhythm, Normal S1, Normal S2, No murmurs Abdomen: Bowel Sounds Present, Soft, Non Tender, Non-Distended, Obese Extremities: No clubbing, No cyanosis, No edema, Capillary Refill Less than 3 Seconds Skin: No rashes, No breakdown Musculoskeletal: No Tenderness to Palpation of Joints or Extremities Neurological: Cranial nerves II-XII grossly intact, Neuro grossly intact Psych/Mental Status: Normal Affect, Appropriate [] Plan as above. I have reviewed Beatriz ALVAREZ's note and endorse it. - Physical Exam Vital Signs Temp Pulse Resp BP Pulse Ox 97.9 F 72 16 120/79 97 08/23/18 10:19 08/23/18 11:14 08/23/18 10:19 08/23/18 10:19 08/23/18 10:19 Oxygen Flow Rate (L/min) 2 Oxygen Delivery Method Room Air Weight: 221 lb 9.033 oz Body Mass Index (BMI) 34.7 Intake and Output for Last 24 Hours 08/21/18 08/22/18 08/23/18 23:59 23:59 23:59 Intake Total 450 / 450 290 / 290 Balance 450 / 450 290 / 290 Laboratory Tests Past 24 Hrs 08/22/18 08/22/18 08/22/18 15:07 15:07 18:25 WBC 5.2 RBC 4.96 Hgb 15.7 Hct 46.6 MCV 94.0 MCH 31.7 MCHC 33.7 RDW 14.4 RDW Differential 48.4 H Plt Count 168 MPV 10.0 Immature Gran % (Auto) 0.200 Neut % (Auto) 65.7 Lymph % (Auto) 19.8 [place] % (Auto) 11.6 H Eos % (Auto) 2.1 Baso % (Auto) 0.6 Absolute Neuts (auto) 3.4 Absolute Lymphs (auto) 1.03 Total Counted Not Reportable PT INR APTT Sodium 144 Potassium 3.8 Chloride 112 H Carbon Dioxide 25.0 Anion Gap 7 BUN 12 Creatinine 1.18 Estim Creat Clear Calc 68.47 Est GFR (MDRD) Af Amer 83 Est GFR (MDRD) Non-Af 69 BUN/Creatinine Ratio 10.2 Glucose 130 H Calcium 8.7 Troponin I < 0.015 < 0.015 08/22/18 08/23/18 08/23/18 21:15 05:15 05:15 WBC 4.7 RBC 4.72 Hgb 15.1 Hct 45.2 MCV 95.8 H MCH 32.0 MCHC 33.4 RDW 14.7 H RDW Differential 49.7 H Plt Count 168 MPV 10.0 Immature Gran % (Auto) 0.000 Neut % (Auto) 63.6 Lymph % (Auto) 23.4 [place] % (Auto) 10.3 H Eos % (Auto) 2.1 Baso % (Auto) 0.6 Absolute Neuts (auto) 3.0 Absolute Lymphs (auto) 1.11 Total Counted Not Reportable PT 13.7 INR 1.1 APTT 28.4 Sodium Potassium Chloride Carbon Dioxide Anion Gap BUN Creatinine Estim Creat Clear Calc Est GFR (MDRD) Af Amer Est GFR (MDRD) Non-Af BUN/Creatinine Ratio Glucose Calcium Troponin I < 0.015 08/23/18 05:15 WBC RBC Hgb Hct MCV MCH MCHC RDW RDW Differential Plt Count MPV Immature Gran % (Auto) Neut % (Auto) Lymph % (Auto) [place] % (Auto) Eos % (Auto) Baso % (Auto) Absolute Neuts (auto) Absolute Lymphs (auto) Total Counted PT INR APTT Sodium 141 Potassium 3.7 Chloride 109 H Carbon Dioxide 25.0 Anion Gap 7 BUN 12 Creatinine 1.07 Estim Creat Clear Calc 72.88 Est GFR (MDRD) Af Amer 93 Est GFR (MDRD) Non-Af 77 BUN/Creatinine Ratio 11.2 Glucose 103 Calcium 8.4 L Troponin I Code Visit Inpatient E&M: 11625 Disch Hosp
--- NOTE | 2018-08-23 12:11 | DS.PCM_ITS ---
<Beatriz Barbour - Last Filed: 08/23/18 12:12> Discharge Date and Diagnosis Date of Admission: 08/22/18 Date of Discharge: 08/23/18 - Primary Discharge Diagnosis 1. Chest pain, history of CAD status post stent to RCA and LAD- ACS ruled out. 2. Hypertension 3. Hyperlipidemia 4. Obstructive sleep apnea 5. Diffuse Arthritis 6. 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) History of coronary artery stent placement (Chronic 11/25/16) PCI-FLORY-Mid LAD with 3.00 x 24 synergy FLORY 11/25/2016; [id number], Mid and Distal RCA all with 3.0 x 28 mm Promus synergy stents 06/25/16; Atherosclerotic heart disease [place]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 (Chronic) PCI-FLORY-Mid LAD 11/25/2016 [id number], MId and 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 06/25/2016 Hypercholesterolemia (Chronic) Non-STEMI (non-ST elevated myocardial infarction) (Chronic) Hospital Course and Treatment Imaging Results: Diagnostic Data Chest X-Ray 08/22/18 15:01 IMPRESSION: No evidence of acute cardiopulmonary process. Electronically Signed: Donny Chopra DO at 15:35 EDT , Service support , Operations: None Procedures: Stress test Summary of Care Provided: The patient is a 53 year old M admitted 08/22/2018 due to chest pain. 1. Chest pain, history of CAD status post stent to RCA and LAD-follows with Dr. Monge. Continue aspirin, plavix, beta adriano. Reported allergy to statin. Chronic negative. EKG without ST-T changes. Patient underwent nuclear stress test which was negative for ischemia. ACS ruled out. He reported he was unable to do treadmill stress test due to pain from arthritis. Patient was to have outpatient follow-up with Dr. Monge day of discharge. Dr. Monge notified of patient's admission. He will follow-up in office next week. Follow-up with primary care physician in 1 week. 2. Hypertension- stable, continue home doxazosin, losartan, metoprolol. 3. Hyperlipidemia- Continue statin. 4. Obstructive sleep apnea-patient underwent sleep study January 2017 which recommended CPAP and avoiding sedating agents including alcohol. Patient not using CPAP. Admits to drinking 3-4 24oz beers per day. 5. Diffuse Arthritis-patient reports he has been on long-term disability secondary to physical debility as a result of diffuse arthritis. Encouraged outpatient follow up with ortho/pain management. 6. Obesity-encouraged diet and lifestyle modifications. Discussed that weight loss may improve his chronic pain from arthritis. General: Alert, Oriented x3, Cooperative HEENT: Atraumatic, PERRLA, EOMI, Normocephalic Neck: Supple, No JVD, Negative Carotid Bruits Lungs: Clear to auscultation, Normal air movement Cardiovascular: Regular rate, Regular Rhythm, Normal S1, Normal S2, No murmurs Abdomen: Bowel Sounds Present, Soft, Non Tender, Non-Distended, Obese Extremities: No clubbing, No cyanosis, No edema, Capillary Refill Less than 3 Seconds Skin: No rashes, No breakdown Musculoskeletal: No Tenderness to Palpation of Joints or Extremities Neurological: Cranial nerves II-XII grossly intact, Neuro grossly intact Psych/Mental Status: Normal Affect, Appropriate Patient seen and examined prior to discharge. Physical assessment as noted above. Patient is stable for discharge with follow up recommendations as noted above. This patient was seen by ANTONIO Cross under the supervision of Dr. Green. - Physical Exam Vital Signs Temp Pulse Resp BP Pulse Ox 97.9 F 72 16 120/79 97 08/23/18 10:19 08/23/18 11:14 08/23/18 10:19 08/23/18 10:19 08/23/18 10:19 Oxygen Flow Rate (L/min) 2 Oxygen Delivery Method Room Air Weight: 221 lb 9.033 oz Body Mass Index (BMI) 34.7 Intake and Output for Last 24 Hours 08/21/18 08/22/18 08/23/18 23:59 23:59 23:59 Intake Total 450 / 450 290 / 290 Balance 450 / 450 290 / 290 Laboratory Tests Past 24 Hrs 08/22/18 08/22/18 08/22/18 15:07 15:07 18:25 WBC 5.2 RBC 4.96 Hgb 15.7 Hct 46.6 MCV 94.0 MCH 31.7 MCHC 33.7 RDW 14.4 RDW Differential 48.4 H Plt Count 168 MPV 10.0 Immature Gran % (Auto) 0.200 Neut % (Auto) 65.7 Lymph % (Auto) 19.8 Ray % (Auto) 11.6 H Eos % (Auto) 2.1 Baso % (Auto) 0.6 Absolute Neuts (auto) 3.4 Absolute Lymphs (auto) 1.03 Total Counted Not Reportable PT INR APTT Sodium 144 Potassium 3.8 Chloride 112 H Carbon Dioxide 25.0 Anion Gap 7 BUN 12 Creatinine 1.18 Estim Creat Clear Calc 68.47 Est GFR (MDRD) Af Amer 83 Est GFR (MDRD) Non-Af 69 BUN/Creatinine Ratio 10.2 Glucose 130 H Calcium 8.7 Troponin I < 0.015 < 0.015 08/22/18 08/23/18 08/23/18 21:15 05:15 05:15 WBC 4.7 RBC 4.72 Hgb 15.1 Hct 45.2 MCV 95.8 H MCH 32.0 MCHC 33.4 RDW 14.7 H RDW Differential 49.7 H Plt Count 168 MPV 10.0 Immature Gran % (Auto) 0.000 Neut % (Auto) 63.6 Lymph % (Auto) 23.4 Ray % (Auto) 10.3 H Eos % (Auto) 2.1 Baso % (Auto) 0.6 Absolute Neuts (auto) 3.0 Absolute Lymphs (auto) 1.11 Total Counted Not Reportable PT 13.7 INR 1.1 APTT 28.4 Sodium Potassium Chloride Carbon Dioxide Anion Gap BUN Creatinine Estim Creat Clear Calc Est GFR (MDRD) Af Amer Est GFR (MDRD) Non-Af BUN/Creatinine Ratio Glucose Calcium Troponin I < 0.015 08/23/18 05:15 WBC RBC Hgb Hct MCV MCH MCHC RDW RDW Differential Plt Count MPV Immature Gran % (Auto) Neut % (Auto) Lymph % (Auto) Ray % (Auto) Eos % (Auto) Baso % (Auto) Absolute Neuts (auto) Absolute Lymphs (auto) Total Counted PT INR APTT Sodium 141 Potassium 3.7 Chloride 109 H Carbon Dioxide 25.0 Anion Gap 7 BUN 12 Creatinine 1.07 Estim Creat Clear Calc 72.88 Est GFR (MDRD) Af Amer 93 Est GFR (MDRD) Non-Af 77 BUN/Creatinine Ratio 11.2 Glucose 103 Calcium 8.4 L Troponin I Discharge Diet: Low fat/ Low Cholesterol Discharge Activity: Return to Normal Activity Call your doctor if you observe: Shortness of breath, Dizziness, Fainting spells, Chest pain Home Medications: Medications to take at Discharge Trazodone HCl 75 mg PO QHS 06/24/16 Nitroglycerin 0.4 mg SL PRN PRN 08/11/16 aspirin 81 mg chewable tablet 81 mg PO DAILY@0800 #90 tab 11/30/17 clopidogrel 75 mg tablet 75 mg PO DAILY #30 tab 11/30/17 doxazosin 4 mg tablet 4 mg PO QHS #30 tab 11/30/17 losartan 25 mg tablet 25 mg PO QDAY #30 tab 11/30/17 Metoprolol Tartrate 25 mg PO DAILY 08/22/18 Omeprazole Magnesium [Prilosec Otc] 20 mg PO DAILY 08/22/18 Primary Care Physician: Mendoza Harris [Primary Care Provider] - Please follow up with your Primary Care Physician in: 1 Week Please Follow Up With: Chato Monge MD When: Next week Please Follow Up With: Antoni Woods MD When: Pain management for diffuse arthritis Disposition: Home Minutes spent on discharge:: 35 Patient Condition:: Stable Medical Necessity - Tobacco Use Smoking Status: Never smoker Meaningful Use Info Meaningful Use Diagnoses (Choose all that apply): None applicable <Lisha Green - Last Filed: 08/23/18 15:16> Discharge Date and Diagnosis - Secondary Discharge Diagnosis Chronic Problems (Last Updated 08/19/18 @ 12:42 by Enid Murphy) Hypertension (Chronic) 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) History of coronary artery stent placement (Chronic 11/25/16) PCI-FLORY-Mid LAD with 3.00 x 24 synergy FLORY 11/25/2016; [id number], Mid and Distal RCA all with 3.0 x 28 mm Promus synergy stents 06/25/16; Atherosclerotic heart disease [place]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 (Chronic) PCI-FLORY-Mid LAD 11/25/2016 [id number], MId and 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 06/25/2016 Hypercholesterolemia (Chronic) Non-STEMI (non-ST elevated myocardial infarction) (Chronic) Hospital Course and Treatment Summary of Care Provided: Patient seen by Beatriz ALVAREZ under my supervision. The patient is a 53 year old M an extensive medical history as listed was admitted with complaint of chest pain which was pressure-like and radiating down his left arm. Stated symptoms were similar to when he had a previous [place] which required stenting. Troponins x3 were negative. He had a stress test on 08/23/2018 which was also negative. Patient remained stable and he was discharged home on 08/23/2018. His follow-up with his manager cardiac cath Dr. matthew. Exam patient seen and examined prior to discharge. He had no complaints and felt well. Review of systems otherwise negative. Labs and vitals reviewed. o/e: Vital Signs Height 5 ft 6.93 in Weight: 221 lb 9.033 oz Weight in Pounds 221.6 lbs BMI 32.7 Pulse Ox 97 Temperature 97.9 F Pulse Rate 72 Respiratory Rate 16 Blood Pressure [BP] 116/77 Blood Pressure 120/79 Blood Pressure Position Semi-Fowlers General: Alert, Oriented x3, Cooperative HEENT: Atraumatic, PERRLA, EOMI, Normocephalic Neck: Supple, No JVD, Negative Carotid Bruits Lungs: Clear to auscultation, Normal air movement Cardiovascular: Regular rate, Regular Rhythm, Normal S1, Normal S2, No murmurs Abdomen: Bowel Sounds Present, Soft, Non Tender, Non-Distended, Obese Extremities: No clubbing, No cyanosis, No edema, Capillary Refill Less than 3 Seconds Skin: No rashes, No breakdown Musculoskeletal: No Tenderness to Palpation of Joints or Extremities Neurological: Cranial nerves II-XII grossly intact, Neuro grossly intact Psych/Mental Status: Normal Affect, Appropriate [] Plan as above. I have reviewed Beatriz ALVAREZ's note and endorse it. - Physical Exam Vital Signs Temp Pulse Resp BP Pulse Ox 97.9 F 72 16 120/79 97 08/23/18 10:19 08/23/18 11:14 08/23/18 10:19 08/23/18 10:19 08/23/18 10:19 Oxygen Flow Rate (L/min) 2 Oxygen Delivery Method Room Air Weight: 221 lb 9.033 oz Body Mass Index (BMI) 34.7 Intake and Output for Last 24 Hours 08/21/18 08/22/18 08/23/18 23:59 23:59 23:59 Intake Total 450 / 450 290 / 290 Balance 450 / 450 290 / 290 Laboratory Tests Past 24 Hrs 08/22/18 08/22/18 08/22/18 15:07 15:07 18:25 WBC 5.2 RBC 4.96 Hgb 15.7 Hct 46.6 MCV 94.0 MCH 31.7 MCHC 33.7 RDW 14.4 RDW Differential 48.4 H Plt Count 168 MPV 10.0 Immature Gran % (Auto) 0.200 Neut % (Auto) 65.7 Lymph % (Auto) 19.8 Ray % (Auto) 11.6 H Eos % (Auto) 2.1 Baso % (Auto) 0.6 Absolute Neuts (auto) 3.4 Absolute Lymphs (auto) 1.03 Total Counted Not Reportable PT INR APTT Sodium 144 Potassium 3.8 Chloride 112 H Carbon Dioxide 25.0 Anion Gap 7 BUN 12 Creatinine 1.18 Estim Creat Clear Calc 68.47 Est GFR (MDRD) Af Amer 83 Est GFR (MDRD) Non-Af 69 BUN/Creatinine Ratio 10.2 Glucose 130 H Calcium 8.7 Troponin I < 0.015 < 0.015 08/22/18 08/23/18 08/23/18 21:15 05:15 05:15 WBC 4.7 RBC 4.72 Hgb 15.1 Hct 45.2 MCV 95.8 H MCH 32.0 MCHC 33.4 RDW 14.7 H RDW Differential 49.7 H Plt Count 168 MPV 10.0 Immature Gran % (Auto) 0.000 Neut % (Auto) 63.6 Lymph % (Auto) 23.4 Ray % (Auto) 10.3 H Eos % (Auto) 2.1 Baso % (Auto) 0.6 Absolute Neuts (auto) 3.0 Absolute Lymphs (auto) 1.11 Total Counted Not Reportable PT 13.7 INR 1.1 APTT 28.4 Sodium Potassium Chloride Carbon Dioxide Anion Gap BUN Creatinine Estim Creat Clear Calc Est GFR (MDRD) Af Amer Est GFR (MDRD) Non-Af BUN/Creatinine Ratio Glucose Calcium Troponin I < 0.015 08/23/18 05:15 WBC RBC Hgb Hct MCV MCH MCHC RDW RDW Differential Plt Count MPV Immature Gran % (Auto) Neut % (Auto) Lymph % (Auto) Ray % (Auto) Eos % (Auto) Baso % (Auto) Absolute Neuts (auto) Absolute Lymphs (auto) Total Counted PT INR APTT Sodium 141 Potassium 3.7 Chloride 109 H Carbon Dioxide 25.0 Anion Gap 7 BUN 12 Creatinine 1.07 Estim Creat Clear Calc 72.88 Est GFR (MDRD) Af Amer 93 Est GFR (MDRD) Non-Af 77 BUN/Creatinine Ratio 11.2 Glucose 103 Calcium 8.4 L Troponin I Code Visit Inpatient E&M: 95290 Disch Hosp
== END 2018-08-23 11:59 | disposition home or self-care (01) ==
LOC: ED 15:30 → PCU 17:33
PROVIDERS: Admitting Provider Internal Medicine; Emergency Provider Emergency Medicine; Family Provider Family Medicine; PCP Family Medicine; Referring Provider Internal Medicine; Visit Provider Student in an Organized Health Care Education/Training Program
DX: R07.89 Other chest pain (principal); I25.10 Atherosclerotic heart disease of native coronary artery without angina pectoris; I10 Essential (primary) hypertension; E78.5 Hyperlipidemia, unspecified; G47.33 Obstructive sleep apnea (adult) (pediatric); E66.9 Obesity, unspecified; Z68.34 Body mass index [BMI] 34.0-34.9, adult; Z71.3 Dietary counseling and surveillance; Z79.899 Other long term (current) drug therapy; Z95.5 Presence of coronary angioplasty implant and graft; Z79.82 Long term (current) use of aspirin; Z79.02 Long term (current) use of antithrombotics/antiplatelets; I25.2 Old myocardial infarction; R06.02 Shortness of breath; R00.2 Palpitations; N40.0 Benign prostatic hyperplasia without lower urinary tract symptoms; M06.4 Inflammatory polyarthropathy; K21.9 Gastro-esophageal reflux disease without esophagitis
CPT/HCPCS: 36415; 71045; 78452; 80048; 84484; 85025; 85610; 85730; 93005; 93017; 96372; 99218; 99284; A9500; A4216; G0378; J2785

== ENCOUNTER → 2019-05-23 09:22 | Outpatient (CLI) | payer MEDICARE, SELFPAY ==
[2016-11-25 13:03] VITALS: BMI 32.7
[2019-05-16 12:54] VITALS: BMI 34.9
[2019-05-23 10:18] LABS: AST(SGOT) 26 U/L (15-37); Alanine Aminotransfer ALT/SGPT 46 U/L (16-61); Albumin, Serum 3.8 g/dL (3.2-5.0); Alkaline Phosphatase 75 U/L (45-117); Bilirubin, Direct 0.21 mg/dL (0.00-0.30); Cholesterol 250 mg/dL (200); Globulin 3.9 g/dL (2.2-4.2); High Density Lipoprotein 36 mg/dL; Protein, Total 7.7 g/dL (6.4-8.2); Triglycerides 174 mg/dL; Very Low Density Lipoprotein 35 mg/dL (5-40)
== END ==
PROVIDERS: Family Provider Family Medicine; PCP Family Medicine; Referring Provider Internal Medicine Cardiovascular Disease; Visit Provider Internal Medicine Cardiovascular Disease
DX: E78.00 Pure hypercholesterolemia, unspecified (principal); I25.119 Atherosclerotic heart disease of native coronary artery with unspecified angina pectoris; Z95.5 Presence of coronary angioplasty implant and graft
CPT/HCPCS: 36415; 80061; 80076

== ENCOUNTER → 2019-06-02 08:44 | Outpatient (CLI) | payer MEDICARE, SELFPAY ==
[2016-11-25 13:03] VITALS: BMI 32.7
[2019-05-16 12:54] VITALS: BMI 34.9
--- NOTE | 2019-06-02 08:46 | ECHOD_ITS ---
Reason For Study: PRE OP CLEARANCE Procedure This was a 2D Doppler, Color Flow transthoracic echocardiogram. Exam performed in department. Left Ventricle Normal size and thickness. The estimated ejection fraction is 65 %. Stage 1 diastolic dysfunction. No regional wall motion abnormalities noted. Right Ventricle Normal size and thickness. Normal systolic function. Atria Normal left atrium. Normal right atrium. Normal atrial septum. Mitral Valve Normal mitral valve. Tricuspid Valve Normal tricuspid valve. Trivial tricuspid valve insufficiency. Right ventricular systolic pressure estimated to be 33 mmHg. Aortic Valve Normal aortic valve. Trisinus/trileaflet aortic valve. Pulmonic Valve Normal pulmonic valve. Trivial pulmonic valve insufficiency. Great Vessels Normal aortic root. Normal arch. Normal inferior vena cava. Inferior vena cava collapse with sniff. Pericardium/Pleural No pericardial effusion. MMode/2D Measurements & Calculations LVIDd: 4.8 cm IVSd: 0.89 cm Ao root diam: 3.1 cm LVIDs: 3.0 cm LVPWd: 1.1 cm RVDd: 3.0 cm FS: 36.4 % LAV(MOD-bp): 64.3 ml LA A4 area: 21.1 cm2 LA dimension(2D): 4.3 cm LAV(MOD-bp) Indexed: 30.4 ml/m2 LAV(MOD-sp2): 57.6 ml LAV(MOD-sp4): 63.6 ml RA A4 area: 17.5 cm2 Time Measurements MV dec time: 0.21 sec Doppler Measurements & Calculations MV E max antonio: 72.3 cm/sec Lat Peak E' Antonio: 10.8 cm/sec Med Peak E' Antonio: 10.6 cm/sec MV A max antonio: 86.1 cm/sec E/E' lat: 6.7 E/E' med: 6.8 MV E/A: 0.84 Ao V2 max: 165.3 cm/sec LV V1 max: 135.0 cm/sec PA V2 max: 109.6 cm/sec Ao max P.9 mmHg LV V1 max P.3 mmHg Ao V2 mean: 119.0 cm/sec LV V1 mean P.9 mmHg Ao mean P.1 mmHg LV V1 mean: 95.2 cm/sec Ao V2 VTI: 33.1 cm LV V1 VTI: 25.6 cm TR max antonio: 258.6 cm/sec TR max P.8 mmHg Interpretation Summary The estimated ejection fraction is 65 %. Stage 1 diastolic dysfunction. Trivial tricuspid valve insufficiency. Right ventricular systolic pressure estimated to be 33 mmHg. Compared to echo report dated 08/14/2016, no appreciable changes noted. Ordering Physician: Chato Monge Referring Physician: Mendoza Harris Performed By: Isai, Altagracia, RDCS, RVT
== END ==
PROVIDERS: Family Provider Family Medicine; PCP Family Medicine; Referring Provider Internal Medicine Cardiovascular Disease; Visit Provider Internal Medicine Cardiovascular Disease
DX: Z01.810 Encounter for preprocedural cardiovascular examination (principal); Z95.5 Presence of coronary angioplasty implant and graft; I10 Essential (primary) hypertension; I25.119 Atherosclerotic heart disease of native coronary artery with unspecified angina pectoris; E78.00 Pure hypercholesterolemia, unspecified; I21.4 Non-ST elevation (NSTEMI) myocardial infarction
CPT/HCPCS: 93306

== ENCOUNTER → 2019-07-08 10:03 | Outpatient (CLI) | payer MEDICARE, SELFPAY ==
[2016-11-25 13:03] VITALS: BMI 32.7
[2019-05-16 12:54] VITALS: BMI 34.9
[2019-07-08 11:37] LABS: Absolute Lymphocyte Count 0.96 X10^3/uL (0.83-4.51); Absolute Neutrophil Count 2.7 X10^3/uL (2.0-7.7); Basophil# 0.02 X10^3/uL; Basophil% 0.5 % (0-1); Eosinophil# 0.08 X10^3/uL; Eosinophils% 1.9 % (0-5); Lymphocyte # 0.96 X10^3/ul (4.0); Lymphocyte % 22.9 % (19-41); Mean Corp Hgb Conc 33.3 g/dL (32-36); Mean Corpuscular Hgb 31.1 pg (27.0-32.0); Mean Corpuscular Volume 93.2 fL (80-94); Mean Platelet Vol. 10.4 fl (6.2-12.0); Monocyte% 9.5 % (0-10); NRBC Flagged by Analyzer 0 % (0-5); Neutrophil # 2.72 X10^3/uL (2.7-7.7); Neutrophil % 64.7 % (47-70); Platelet Count 235 K/mm3 (150-450); RBC Distribution Width CV 12.1 % (11.6-14.6); RBC Distribution Width SD 42.1 fl (35.1-43.9); Red Blood Count 5.15 M/mm3 (4.6-6.2); White Blood Count 4.2 K/mm3 (4.4-11.0)
[2019-07-08 11:44] LABS: AST(SGOT) 18 U/L (15-37); Alanine Aminotransfer ALT/SGPT 36 U/L (16-61); Albumin, Serum 4.2 g/dL (3.2-5.0); Alkaline Phosphatase 64 U/L (45-117); Bilirubin, Direct 0.12 mg/dL (0.00-0.30); Cholesterol 263 mg/dL (200); Globulin 3.6 g/dL (2.2-4.2); High Density Lipoprotein 35 mg/dL; Protein, Total 7.8 g/dL (6.4-8.2); Triglycerides 110 mg/dL; Very Low Density Lipoprotein 22 mg/dL (5-40)
[2019-07-08 11:47] LABS: Bilirubin, Direct 0.13 mg/dL (0.00-0.30)
[2019-07-08 15:46] LABS: ALB/GLOB Ratio 1.1 RATIO (0.9-2.4); AST(SGOT) 25 U/L (15-37); Alanine Aminotransfer ALT/SGPT 39 U/L (16-61); Albumin, Serum 4.1 g/dL (3.2-5.0); Alkaline Phosphatase 65 U/L (45-117); Anion Gap 6 (5-15); BUN 13 mg/dL (7-18); BUN/Creat Ratio 11.9 RATIO (10-20); Calcium,Total 9.5 mg/dL (8.5-10.1); Chloride 111 mmol/L (98-107); Creatinine, Serum 1.09 mg/dL (0.70-1.30); EST Glomerular Filtration Rate 75 mL/min (>60); Est Glom Filt Rate - Afr Amer 91 mL/min (>60); Globulin 3.9 g/dL (2.2-4.2); Glucose 105 mg/dL (74-106); Potassium 3.9 mmol/L (3.5-5.1); Sodium Level 140 mmol/L (136-145)
== END ==
PROVIDERS: Internal Medicine Cardiovascular Disease; PCP Family Medicine
DX: I25.119 Atherosclerotic heart disease of native coronary artery with unspecified angina pectoris (principal); E78.00 Pure hypercholesterolemia, unspecified; Q43.8 Other specified congenital malformations of intestine; R10.10 Upper abdominal pain, unspecified
CPT/HCPCS: 36415; 80053; 80061; 80076; 82248; 85025

== ENCOUNTER → 2019-08-22 08:54 | Outpatient (CLI) | payer MEDICARE, SELFPAY ==
[2016-11-25 13:03] VITALS: BMI 32.7
[2019-05-16 12:54] VITALS: BMI 34.9
[2019-08-22 10:04] LABS: AST(SGOT) 25 U/L (15-37); Alanine Aminotransfer ALT/SGPT 40 U/L (16-61); Albumin, Serum 4.1 g/dL (3.2-5.0); Alkaline Phosphatase 66 U/L (45-117); Bilirubin, Direct 0.12 mg/dL (0.00-0.30); Cholesterol 248 mg/dL (200); Globulin 3.6 g/dL (2.2-4.2); High Density Lipoprotein 36 mg/dL; Protein, Total 7.7 g/dL (6.4-8.2); Triglycerides 114 mg/dL; Very Low Density Lipoprotein 23 mg/dL (5-40)
== END ==
PROVIDERS: PCP Family Medicine; Referring Provider Internal Medicine Cardiovascular Disease; Visit Provider Internal Medicine Cardiovascular Disease
DX: E78.00 Pure hypercholesterolemia, unspecified (principal); I25.119 Atherosclerotic heart disease of native coronary artery with unspecified angina pectoris
CPT/HCPCS: 36415; 80061; 80076

== ENCOUNTER → 2020-06-20 06:36 | Outpatient (CLI) | payer MEDICARE, SELFPAY ==
[2016-11-25 13:03] VITALS: BMI 32.7
[2020-06-11 11:02] VITALS: BMI 35.9
--- NOTE | 2020-06-20 06:39 | ECHOCS_ITS ---
Reason For Study: DYSPNEA Procedure This was a 2D Doppler, Color Flow transthoracic echocardiogram. The study was technically difficult. Contrast injection was performed. Exam performed in department. Left Ventricle Normal LV size. Left ventricular systolic function is normal. The estimated ejection fraction is 60 %. No evidence for diastolic dysfunction. No regional wall motion abnormalities noted. Right Ventricle Normal RV size. Normal systolic function. Atria Normal left atrium. Normal right atrium. No doppler evidence for ASD. Mitral Valve There is no mitral annular calcification. Normal mitral valve. Trivial mitral valve insufficiency. Tricuspid Valve Normal tricuspid valve. Trivial tricuspid valve insufficiency. Right ventricular systolic pressure estimated to be 25 mmHg. Aortic Valve Trisinus/trileaflet aortic valve. Mild focal aortic valve calcification. Pulmonic Valve The pulmonic valve is not well visualized. Great Vessels Normal sized aortic root. Pericardium/Pleural No pericardial effusion. Medication Diluted definity 4.0ml given slow IV push to enhance endocardial definition. MMode/2D Measurements & Calculations LVIDd: 4.6 cm IVSd: 1.0 cm Ao root diam: 3.2 cm LVIDs: 3.0 cm LVPWd: 1.0 cm FS: 35.1 % LAV(MOD-bp): 59.7 ml EDV(MOD-sp4): 105.7 ml EDV(MOD-sp2): 97.5 ml LAV(MOD-bp) Indexed: 27.9 ml/m2 ESV(MOD-sp4): 42.4 ml EF(MOD-sp2): 63.5 % LAV(MOD-sp2): 68.0 ml EF(MOD-sp4): 59.9 % LAV(MOD-sp4): 49.0 ml SV(MOD-sp4): 63.4 ml SV(MOD-sp2): 61.9 ml LA A4 area: 18.9 cm2 LA dimension(2D): 4.7 cm RA A4 area: 14.8 cm2 Time Measurements MV dec time: 0.24 sec Doppler Measurements & Calculations MV E max antonio: 74.4 cm/sec Lat Peak E' Antonio: 9.0 cm/sec Med Peak E' Antonio: 11.3 cm/sec MV A max antonio: 67.3 cm/sec E/E' lat: 8.2 E/E' med: 6.6 MV E/A: 1.1 Ao V2 max: 159.4 cm/sec LV V1 max: 102.5 cm/sec PA V2 max: 108.0 cm/sec Ao max P.2 mmHg LV V1 max P.2 mmHg TR max antonio: 235.4 cm/sec TR max P.2 mmHg Interpretation Summary The study was technically difficult. Contrast injection was performed. Left ventricular systolic function is normal. The estimated ejection fraction is 60 %. Trivial mitral valve insufficiency. Trivial tricuspid valve insufficiency. Mild focal aortic valve calcification. Right ventricular systolic pressure estimated to be 25 mmHg. No evidence for diastolic dysfunction. Ordering Physician: Leland Tomas Referring Physician: COSME BERGER Performed By: Henrietta Torres, CHAPIN, RVT
--- NOTE | 2020-06-20 08:00 | STRESSREP_ITS ---
Stress Test Report Date: 06-20-2020 Procedure: Pharmacologic stress nuclear imaging study Indications: Shortness of breath/dyspnea on exertion; CAD; PCI Consent: Per the patient Procedure: The patient underwent pharmacologic (Regadenoson) evaluation with a peak heart rate of 99 beats per minute (59%predicted maximal heart rate) and a peak blood pressure of 138/88 mmHg. The baseline ECG demonstrated normal sinus rhythm. The peak pharmacologic ECG demonstrated no obvious ECG changes. There were no cardiac dysrhythmias pretest, during pharmacologic infusion, or recovery. There was no complaint of chest discomfort during pharmacologic infusion or recovery. The examination was discontinued secondary to completion of protocol. Impression: 1. Pharmacologic (Regadenoson) evaluation 2. Peak pharmacologic ECG with no obvious ECG changes. 3. There were no cardiac dysrhythmias pretest, during pharmacologic infusion, or recovery. 4. Nuclear images pending Myocardial perfusion imaging study: Technique: The patient was injected with 14.2 millicuries of technetium 99m Cardiolite and subsequently rest SPECT Cardiolite nuclear imaging was obtained in the horizontal long, vertical long, and short axis views. The patient underwent pharmacologic (Regadenoson) evaluation with a peak heart rate of 99 beats per minute (59% percent predicted maximal heart rate) and a peak blood pressure of 138/88 mmHg. The patient was injected with 44.5 millicuries of technetium 99m Cardiolite and subsequently stress SPECT Cardiolite nuclear imaging was obtained in the horizontal long, vertical long, and short axis views. A gated Cardiolite study at peak stress was obtained. Interpretation: Rest and stress SPECT Cardiolite nuclear imaging status post realignment, normalization, and attenuation correction demonstrate at rest the appearance of an area of diminished tracer uptake in portions of the distal interventricular septal area which status post arrest appears to improve/normalize. There is end systolic thickening and brightening. The gated Cardiolite study demonstrates myocardial thickening and inward wall motion. The reported LVEF is 64%. Impression: 1. Rest and stress SPECT current nuclear imaging demonstrate myocardial perfusion changes at rest which appear to improve/normalize following stress compatible shifting soft tissue attenuation/artifact with no myocardial perfusion changes considered diagnostic for associated stress-induced myocardial ischemia. 2. The gated Cardiolite study reports an LVEF of 64%. This note was generated with [employer] software. It may contain incorrect words, spelling, and punctuation that were not noted in checking the note before signing.
== END ==
PROVIDERS: PCP Family Medicine; Referring Provider Internal Medicine Cardiovascular Disease; Visit Provider Internal Medicine Cardiovascular Disease
DX: I25.10 Atherosclerotic heart disease of native coronary artery without angina pectoris (principal); I25.42 Coronary artery dissection; R06.02 Shortness of breath; Z95.5 Presence of coronary angioplasty implant and graft
CPT/HCPCS: 78452; 93017; 93306; A9500; Q9957; A4216; C8929; J2785

== ENCOUNTER → 2021-11-18 | Outpatient (CLI) | payer MEDICARE, SELFPAY ==
[2016-11-25 13:03] VITALS: BMI 32.7
[2021-11-18 13:13] LABS: AST(SGOT) 19 U/L (15-37); Alanine Aminotransfer ALT/SGPT 27 U/L (16-61); Albumin, Serum 3.9 g/dL (3.2-5.0); Alkaline Phosphatase 55 U/L (45-117); Bilirubin, Direct 0.12 mg/dL (0.00-0.30); Cholesterol 189 mg/dL (200); Globulin 3.5 g/dL (2.2-4.2); High Density Lipoprotein 38 mg/dL; Protein, Total 7.4 g/dL (6.4-8.2); Triglycerides 95 mg/dL; Very Low Density Lipoprotein 19 mg/dL (5-40)
== END | disposition home or self-care (01) ==
LOC: LAB 12:14
PROVIDERS: Nurse Practitioner Family; PCP Family Medicine; Visit Provider Family Medicine
DX: I25.119 Atherosclerotic heart disease of native coronary artery with unspecified angina pectoris (principal); I71.00 Dissection of unspecified site of aorta; E78.00 Pure hypercholesterolemia, unspecified; G47.33 Obstructive sleep apnea (adult) (pediatric); R07.89 Other chest pain; R53.83 Other fatigue
CPT/HCPCS: 36415; 80061; 80076

== ENCOUNTER → 2021-11-19 | Outpatient (CLI) | payer MEDICARE, SELFPAY ==
[2016-11-25 13:03] VITALS: BMI 32.7
[2021-11-19 12:50] LABS: Absolute Lymphocyte Count 1.02 X10^3/uL (0.83-4.51); Absolute Neutrophil Count 3.6 X10^3/uL (2.0-7.7); Basophil# 0.05 X10^3/uL; Basophil% 0.9 % (0-1); Eosinophil# 0.08 X10^3/uL; Eosinophils% 1.5 % (0-5); Erythrocyte Sedimentation Rate 22 mm/hr (0-20); Hematocrit 45.1 % (40-54); Hemoglobin 15.4 g/dL (13.0-16.5); Lymphocyte # 1.02 X10^3/ul (0.83-4.51); Lymphocyte % 19.3 % (19-41); Mean Corp Hgb Conc 34.1 g/dL (32-36); Mean Corpuscular Hgb 31.7 pg (27.0-32.0); Mean Corpuscular Volume 92.8 fL (80-94); Mean Platelet Vol. 9.7 fl (6.2-12.0); Monocyte% 9.5 % (0-10); NRBC Flagged by Analyzer 0 % (0-5); Neutrophil # 3.61 X10^3/uL (2.7-7.7); Neutrophil % 68.4 % (47-70); Platelet Count 238 K/mm3 (150-450); RBC Distribution Width SD 44.2 fl (35.1-43.9); Red Blood Count 4.86 M/mm3 (4.6-6.2); White Blood Count 5.3 K/mm3 (4.4-11.0)
[2021-11-19 13:19] LABS: ALB/GLOB Ratio 1.1 RATIO (0.9-2.4); AST(SGOT) 14 U/L (15-37); Alanine Aminotransfer ALT/SGPT 27 U/L (16-61); Albumin, Serum 3.9 g/dL (3.2-5.0); Alkaline Phosphatase 61 U/L (45-117); Anion Gap 6 (5-15); BUN 15 mg/dL (7-18); BUN/Creat Ratio 10.6 RATIO (10-20); Calcium,Total 9.4 mg/dL (8.5-10.1); Chloride 109 mmol/L (98-107); Cholesterol 182 mg/dL (200); Creatinine, Serum 1.42 mg/dL (0.70-1.30); EST Glomerular Filtration Rate 55 mL/min (>60); Est Glom Filt Rate - Afr Amer 66 mL/min (>60); Globulin 3.6 g/dL (2.2-4.2); Glucose 107 mg/dL (74-106); High Density Lipoprotein 36 mg/dL; Protein, Total 7.5 g/dL (6.4-8.2); Sodium Level 139 mmol/L (136-145); Triglycerides 111 mg/dL; Troponin-I HS 4 pg/mL (3.0-78.0); Very Low Density Lipoprotein 22 mg/dL (5-40)
[2021-11-19 13:37] LABS: Homocysteine 14.8 umol/L (3.2-10.7)
[2021-11-21 17:11] LABS: ANTINUCLEAR ANTIBODIES DIRECT Negative (Negative)
== END | disposition home or self-care (01) ==
LOC: LAB 12:22
PROVIDERS: PCP Family Medicine; Visit Provider Family Medicine
DX: R07.89 Other chest pain (principal); I71.00 Dissection of unspecified site of aorta; R53.83 Other fatigue; E78.00 Pure hypercholesterolemia, unspecified; G47.33 Obstructive sleep apnea (adult) (pediatric)
CPT/HCPCS: 80053; 80061; 83090; 84484; 85025; 85652; 86038

== ENCOUNTER → 2022-05-26 | Outpatient (CLI) | payer MEDICARE, SELFPAY ==
[2016-11-25 13:03] VITALS: BMI 32.7
--- NOTE | 2022-05-26 11:40 | RAD_ITS ---
STUDY: X-RAY - THORACIC SPINE REASON FOR EXAM: Male, 57 years old. PAIN IN THORACIC SPINE TECHNIQUE: 3 view(s) of the thoracic spine were obtained. COMPARISON: None. FINDINGS: Normal kyphosis of the thoracic spine. There is no substantial scoliosis. There is multilevel endplate spondylosis of the thoracic vertebrae. There is multilevel disc space narrowing of the thoracic spine. The soft tissue structures are unremarkable. RAD/Thoracic Spine 3 Views IMPRESSION: There is multilevel disc space narrowing of the thoracic spine. Electronically Signed: Romeo Peterson MD at 3:18 EST ,
== END | disposition home or self-care (01) ==
LOC: RAD 11:36
PROVIDERS: PCP Family Medicine; Referring Provider Family Medicine; Visit Provider Family Medicine
DX: M48.04 Spinal stenosis, thoracic region (principal)
CPT/HCPCS: 72072

== ENCOUNTER → 2023-10-06 | Outpatient (CLI) | payer MEDICARE, SELFPAY ==
[2016-11-25 13:03] VITALS: BMI 32.7
--- NOTE | 2023-10-06 10:10 | RAD_ITS ---
STUDY: X-RAY - PELVIS AND LEFT HIP REASON FOR EXAM: Male, 58 years old. OA TECHNIQUE: 3 views of the pelvis and left hip. COMPARISON: None. FINDINGS: There is a non-specific bowel gas pattern. Normal visualized soft tissue structures. Normal bilateral iliac wings, sacroiliac joints and visualized sacrum. Normal bilateral superior and inferior pubic rami. Normal pubic symphysis. Normal bilateral ischial tuberosities. Intact visualized femoral head. There is osteoarthritic spur formation of the acetabular rims bilaterally. Intact left hip joint. There is no demonstrated acute fracture. RAD/HIP, UNI W/ Pelvis 2-3 Views IMPRESSION: Mild degenerative arthrosis of the hip joints bilaterally. No demonstrated acute fracture. Electronically Signed: Carl Hdz MD at 9:01 EDT ,
== END | disposition home or self-care (01) ==
PROVIDERS: PCP Family Medicine; Referring Provider Family Medicine; Visit Provider Family Medicine
DX: M16.12 Unilateral primary osteoarthritis, left hip (principal)
CPT/HCPCS: 73502

== ENCOUNTER 2023-10-29 15:28 | Inpatient (IN) | payer MEDICARE, SELFPAY ==
[2016-11-25 13:03] VITALS: BMI 32.7
[2023-10-29] VITALS (10 sets, daily range): BP systolic 105–140; BP diastolic 74–96; PULSE 67–93; RESP 14–18; TEMP 36.1–36.7; O2SAT 93–97; BMI 35.5
--- NOTE | 2023-10-29 15:50 | RAD_ITS ---
EXAM: XR CHEST, 1 VIEW CLINICAL INDICATION: chest pain TECHNIQUE: Frontal view of the chest. COMPARISON: 08/22/2018 FINDINGS: LUNGS AND PLEURAL SPACES: Unremarkable. No consolidation or edema. No pneumothorax. No effusion. HEART: Unremarkable. Cardiac silhouette not enlarged. MEDIASTINUM: Central airways and mediastinal contour are unremarkable. BONES/JOINTS: Unremarkable. No acute fracture. SOFT TISSUES: Unremarkable. RAD/Chest 1 View (Portable) IMPRESSION: No radiographic evidence of acute cardiopulmonary disease. Electronically Signed: Dez Lyn MD at 16:32 EDT ,
--- NOTE | 2023-10-29 15:52 | EKG12_ITS ---
Test Reason : CP Blood Pressure : / mmHG Vent. Rate : 085 BPM Atrial Rate : 085 BPM P-R Int : 164 ms QRS Dur : 100 ms QT Int : 370 ms P-R-T Axes : 049 013 013 degrees QTc Int : 440 ms Normal sinus rhythm Normal ECG Confirmed by Kal Simeon ([id number]), order editor CECY CARCAMO ([id number]) on 10/30/2023 10:22:17 AM Referred By: Confirmed By:Kal Simeon
[2023-10-29 16:06] LABS: Absolute Lymphocyte Count 1.11 X10^3/uL (0.83-4.51); Basophil# 0.04 X10^3/uL; Basophil% 0.7 % (0-1); Eosinophil# 0.08 X10^3/uL; Eosinophils% 1.4 % (0-5); Hematocrit 46.3 % (40-54); Hemoglobin 15.5 g/dL (13.0-16.5); Lymphocyte # 1.11 X10^3/ul (0.83-4.51); Mean Corp Hgb Conc 33.5 g/dL (32-36); Mean Corpuscular Hgb 30.6 pg (27.0-32.0); Mean Corpuscular Volume 91.5 fL (80-94); Mean Platelet Vol. 10.1 fl (6.2-12.0); Monocyte# 0.35 X10^3/uL; Monocyte% 6.3 % (0-10); NRBC Flagged by Analyzer 0 % (0-5); Neutrophil # 3.96 X10^3/uL (2.7-7.7); Neutrophil % 71.4 % (47-70); Platelet Count 249 K/mm3 (150-450); RBC Distribution Width CV 13.4 % (11.6-14.6); RBC Distribution Width SD 45.3 fl (35.1-43.9); Red Blood Count 5.06 M/mm3 (4.6-6.2); White Blood Count 5.6 K/mm3 (4.4-11.0)
--- NOTE | 2023-10-29 16:08 | EDS_ITS ---
HPI <ANTONIO Coobms - Last Filed: 10/29/23 18:46> History of Present Illness Chief Complaint: Chest Pain Narrative Narrative: Patient is a 58-year-old male with history of CAD, history of aortic dissection, hypertension who presents to the emerged department for chest pain on exertion. Patient's last stent was placed in 2016, patient this time also had a stent placed in his aorta. Patient is currently on Plavix as well as baby aspirin. Patient states that he has mowed the grass 4 times this summer. Patient states every time he has had chest pain while mowing the grass however goes away when he is finished. Today, the chest pain was more pronounced, it was happening more frequently, it took longer to go away and he was diaphoretic. He called his cardiology office who told him to come in for evaluation. Patient did receive aspirin in the squad. Patient denies any chest pain on arrival. 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) Atherosclerotic heart disease [place]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 Hypercholesterolemia Non-STEMI (non-ST elevated myocardial infarction) Home Medications ?Medication ?Instructions ?Recorded ?Last Taken ?Type trazodone 150 mg tablet 75 mg PO QHS PRN SLEEP 05/16/19 Unknown History cholecalciferol (vitamin D3) 25 1,000 unit PO DAILY SUPPLEMENT 11/19/21 10/29/23 History mcg (1,000 unit) capsule clopidogrel 75 mg tablet 75 mg PO DAILY BLOOD THINNER #90 01/14/23 10/29/23 Rx tabs doxazosin 4 mg tablet 4 mg PO QHS BLOOD PRESSURE #90 01/14/23 10/28/23 Rx tabs fenofibrate 160 mg tablet 160 mg PO DAILY CHOLESTEROL 06/12/23 10/29/23 History folic acid 400 mcg tablet 0.4 mg PO BID SUPPLEMENT 06/12/23 10/29/23 History aspirin 81 mg chewable tablet 81 mg PO DAILY HEART HEALTH 10/29/23 10/29/23 History doxycycline monohydrate 100 mg 100 mg PO BID ANTIBIOTIC 10/29/23 10/28/23 History capsule ezetimibe 10 mg tablet 10 mg PO DAILY CHOLESTEROL 10/29/23 10/29/23 History losartan 25 mg tablet 25 mg PO DAILY BLOOD PRESSURE 10/29/23 10/29/23 History meloxicam 15 mg tablet 15 mg PO DAILY PRN ARTHRITIS 10/29/23 Unknown History metoprolol tartrate 25 mg tablet 25 mg PO DAILY BLOOD PRESSURE 10/29/23 10/29/23 History nitroglycerin 0.4 mg sublingual 0.4 mg sublingual DAILY PRN CHEST 10/29/23 Unknown History tablet PAIN omeprazole 20 mg capsule,delayed 20 mg PO DAILY ACID REFLUX 10/29/23 10/29/23 History release Allergy/AdvReac Type Severity Reaction Status Date / Time atorvastatin (From Lipitor) AdvReac Severe mylagias Verified 10/29/23 15:31 evolocumab (From Repatha AdvReac Severe Blurred Verified 10/29/23 15:31 SureClick) vision metoprolol AdvReac Severe Rash Verified 10/29/23 15:31 hydrocodone bitartrate (From AdvReac Intermediate Itching Verified 10/29/23 15:31 Vicodin) pravastatin AdvReac GI upset Verified 10/29/23 15:31 and sore mouth Family History Mother , age 64 CAD (coronary artery disease) Rheumatic fever Brother CAD (coronary artery disease) Surgical History History of colonoscopy (~10/2019) Hx of abdominal surgery (~10/2019) Hx of hand surgery History of coronary artery stent placement (11/25/16) Social History Smoking Status: Never smoker alcohol intake: current alcohol intake frequency: a few times a month substance use type: does not use caffeine: Yes Type: coffee Number of servings: 1 ROS <ANTONIO Coombs - Last Filed: 10/29/23 18:46> ROS ED ROS Narrative Constitutional: Negative for fever, chills, weight loss, weakness Eyes: Negative for vision loss, vision change, double vision ENT: Negative for any sore throat, ear pain, congestion Cardiovascular: Negative for any palpitations. Positive for chest pain, diaphoresis Respiratory: Negative for any cough, sputum production, hemoptysis, dyspnea, dyspnea on exertion, orthopnea Gastrointestinal: Negative for any abdominal pain, nausea, vomiting, diarrhea, constipation, blood in stool, blood in vomit : Negative for any urinary frequency, dysuria, retention, blood in urine Muscle skeletal: Negative for any neck pain, back pain Neurological: Negative for any headache, syncope, dizziness Skin: Negative for any rashes, itching, abrasions, lacerations Psychiatric: Negative for any depression, anxiety, stress, suicidal ideation, homicidal ideation Hematologic: Negative for any excessive bruising, easy bleeding EXAM <ANTONIO Coombs - Last Filed: 10/29/23 18:46> Physical Exam Narrative Exam Narrative: Vital signs reviewed. HEET: Head normocephalic atraumatic, TMs clear bilaterally. Posterior pharynx is clear, moist mucous membranes. Nares clear bilaterally. Neck: Supple with no lymphadenopathy or tenderness. No signs of meningismus. Cardiac: Regular rate and rhythm no murmurs gallops or rubs, equal peripheral pulses bilaterally. Respiratory: Lungs clear to auscultation bilaterally. No chest tenderness. Abdomen: Soft, nontender, nondistended. No abdominal bruit or pulsatile masses. No hepatosplenomegaly Extremities: No peripheral edema, no signs of gross trauma or deformity. Active full range of motion of all extremities. Neuro: Cranial nerves II through XII intact, no focal neurological deficits. Skin: Clean dry and intact with no rash, purpura, petechiae, vesicles or pustules. Backs/flank: No CVA tenderness, no midline spinal tenderness, no deformity. Psych: Normal mood and affect. No SI, HI or acute psychosis. Const Vital Signs: 10/29/23 15:28 10/29/23 15:31 10/29/23 15:37 Temperature 97.4 F L 97.4 F L Temperature Source Temporal Temporal Pulse Rate 93 93 Respiratory Rate 16 16 Respiratory Effort Short of Breath Blood Pressure 120/92 H 120/92 H Blood Pressure Mean 101 101 Pulse Ox 97 97 Oxygen Delivery Method Room Air Room Air 10/29/23 15:58 10/29/23 16:28 10/29/23 17:00 Temperature Temperature Source Pulse Rate 87 79 Respiratory Rate 16 16 Respiratory Effort Blood Pressure 138/96 H 127/87 H Blood Pressure Mean 110 100 Pulse Ox 96 95 96 Oxygen Delivery Method Room Air Room Air Room Air 10/29/23 17:15 Temperature Temperature Source Pulse Rate 82 Respiratory Rate Respiratory Effort Blood Pressure 135/96 H Blood Pressure Mean Pulse Ox Oxygen Delivery Method Positive well nourished and well developed General Appearance ED: well developed <Dr. Tru Brito DO - Last Filed: 10/29/23 22:40> Physical Exam Const Vital Signs: 10/29/23 15:28 10/29/23 15:31 10/29/23 15:37 Temperature 97.4 F L 97.4 F L Temperature Source Temporal Temporal Pulse Rate 93 93 Respiratory Rate 16 16 Respiratory Effort Short of Breath Blood Pressure 120/92 H 120/92 H Blood Pressure Mean 101 101 Pulse Ox 97 97 Oxygen Delivery Method Room Air Room Air 10/29/23 15:58 10/29/23 16:28 10/29/23 17:00 Temperature Temperature Source Pulse Rate 87 79 Respiratory Rate 16 16 Respiratory Effort Blood Pressure 138/96 H 127/87 H Blood Pressure Mean 110 100 Pulse Ox 96 95 96 Oxygen Delivery Method Room Air Room Air Room Air 10/29/23 17:15 Temperature Temperature Source Pulse Rate 82 Respiratory Rate Respiratory Effort Blood Pressure 135/96 H Blood Pressure Mean Pulse Ox Oxygen Delivery Method MDM <ANTONIO Coombs - Last Filed: 10/29/23 18:46> [facility] Lab Data Labs: Laboratory Results - last 24 hr 10/29/23 15:50 WBC 5.6 RBC 5.06 Hgb 15.5 Hct 46.3 MCV 91.5 MCH 30.6 MCHC 33.5 RDW Std Deviation 45.3 H RDW Coeff of Nely 13.4 Plt Count 249 MPV 10.1 Immature Gran % (Auto) 0.200 Neut % (Auto) 71.4 H Lymph % (Auto) 20.0 Travis % (Auto) 6.3 Eos % (Auto) 1.4 Baso % (Auto) 0.7 Absolute Neuts (auto) 4.0 Absolute Lymphs (auto) 1.11 Nucleated RBC % 0 Sodium 139 Potassium 3.9 Chloride 107 Carbon Dioxide 25.0 Anion Gap 7 BUN 15 Creatinine 1.49 H Estim Creat Clear Calc 62.53 Est GFR (MDRD) Af Amer 62 Est GFR (MDRD) Non-Af 52 L BUN/Creatinine Ratio 10.1 Glucose 164 H Calcium 10.3 H Troponin I High Sens 23 B-Natriuretic Peptide 8.2 Radiography Diagnostic Testing: Clinical Impression(s) from Imaging Studies Chest X-Ray 10/29/23 15:50 IMPRESSION: No radiographic evidence of acute cardiopulmonary disease. Electronically Signed: Dez Lyn MD at 16:32 EDT , EKG Normal sinus rhythm: Attestation: I personally reviewed and interpreted this EKG as follows: Comments: Normal sinus rhythm, rate of 85 bpm, NJ interval 164 ms, QRS duration 100 ms, no acute ST elevation, no acute infarct noted. Treatment and Re-Evaluation :: Differential diagnosis includes however is not limited to: ACS, CA, stable angina, angina pectoris, unstable angina, community acquired pneumonia. Patient on my evaluation is currently pain-free, patient's vital signs are stable, patient is in no obvious distress, patient is nontoxic. Presenting to the emerged department with stable angina. Patient will receive a full cardiac workup including 2 troponins, chest x-ray. Patient was already given aspirin by squad. Patient is currently pain-free. After my workup, I will reach out to cardiology for further instructions. Patient's chest x-ray showed no acute cardiopulmonary process. Patient's labora tory values showed normal CBC, patient's chemistries show slight increase in creatinine at 1.49, this is baseline since November 2021. Glucose 164, patient's initial troponin was 23, BNP was 8.2. Secondary to the patient's cardiac history, I will reach out to cardiology. I spoke with cardiology, we did go over the patient's case. Patient does have stress test that are the nuclear med testing, and he is past everyone of them however once cath, they did find some blockages. Patient will receive a second troponin, if it is elevated, the patient be started on heparin, if remains the same, DVT prophylaxis will be started. Patient be given 1 inch of Nitropaste. Patient will be admitted to the hospital, likely have a cardiac catheterization tomorrow. I spoke with cardiology again, he requested a CTA of the chest.Patient's repeat troponin is currently at the lab. Patient will be admitted to the hospitalist. Stable <Dr. Tru Brito DO - Last Filed: 10/29/23 22:40> [facility] Lab Data Attestation: I reviewed the patient's lab results. Labs: Laboratory Results - last 24 hr 10/29/23 15:50 WBC 5.6 RBC 5.06 Hgb 15.5 Hct 46.3 MCV 91.5 MCH 30.6 MCHC 33.5 RDW Std Deviation 45.3 H RDW Coeff of Nely 13.4 Plt Count 249 MPV 10.1 Immature Gran % (Auto) 0.200 Neut % (Auto) 71.4 H Lymph % (Auto) 20.0 Travis % (Auto) 6.3 Eos % (Auto) 1.4 Baso % (Auto) 0.7 Absolute Neuts (auto) 4.0 Absolute Lymphs (auto) 1.11 Nucleated RBC % 0 Sodium 139 Potassium 3.9 Chloride 107 Carbon Dioxide 25.0 Anion Gap 7 BUN 15 Creatinine 1.49 H Estim Creat Clear Calc 62.53 Est GFR (MDRD) Af Amer 62 Est GFR (MDRD) Non-Af 52 L BUN/Creatinine Ratio 10.1 Glucose 164 H Calcium 10.3 H Troponin I High Sens 23 B-Natriuretic Peptide 8.2 Radiography Diagnostic Testing: Clinical Impression(s) from Imaging Studies Chest X-Ray 10/29/23 15:50 IMPRESSION: No radiographic evidence of acute cardiopulmonary disease. Electronically Signed: Dez Lyn MD at 16:32 EDT , Treatment and Re-Evaluation :: Differential diagnosis includes however is not limited to: ACS, CA, stable angina, angina pectoris, unstable angina, community acquired pneumonia. Patient on my evaluation is currently pain-free, patient's vital signs are stable, patient is in no obvious distress, patient is nontoxic. Presenting to the emerged department with stable angina. Patient will receive a full cardiac workup including 2 troponins, chest x-ray. Patient was already given aspirin by squad. Patient is currently pain-free. After my workup, I will reach out to cardiology for further instructions. Patient's chest x-ray showed no acute cardiopulmonary process. Patient's laboratory values showed normal CBC, patient's chemistries show slight increase in creatinine at 1.49, this is baseline since November 2021. Glucose 164, patient's initial troponin was 23, BNP was 8.2. Secondary to the patient's cardiac history, I will reach out to cardiology. I spoke with cardiology, we did go over the patient's case. Patient does have stress test that are the nuclear med testing, and he is past everyone of them however once cath, they did find some blockages. Patient will receive a second troponin, if it is elevated, the patient be started on heparin, if remains the same, DVT prophylaxis will be started. Patient be given 1 inch of Nitropaste. Patient will be admitted to the hospital, likely have a cardiac catheterization tomorrow. I spoke with cardiology again, he requested a CTA of the chest.Patient's repeat troponin is currently at the lab. Patient will be admitted to the hospitalist. Stable Attending note: Patient seen and evaluated with soil analyst. I perform my own [id number] evaluation. I agree with the plan of work-up. History of angina 3 coronary stents of RCA has been doing fine since. He never smoked. in 2017 complicated by coronary dissection into his aorta there is no intervention. 6 months later had additional stent in his LAD. Over the last 4 weeks has had exertional chest tightness left arm pain dyspnea Which improved with rest. Last time symptoms today which was worse than previous. None currently. He called h is cardiology office who called EMS to have him come here. Exam alert nontoxic heart is regular lungs are clear. No swelling lower extremities. Cardiac workup EKG negative troponin negative. 1 view chest x-ray interpreted by myself and read by radiology shows no acute process. Discussed with cardiology requested CT of the chest results were negative. Nitropaste was placed per cardiology request. Plan for cardiac cath tomorrow. Discussed with hospitalist for admission. Discharge Plan Dx/Rx/DC Orders Clinical Impression: Exertional angina, Chest pain, Hypercholesterolemia, Essential hypertension, History of coronary artery stent placement Disposition Disposition: Acute Care Hospital [facility] Discharge Date/Time: 10/29/23 18:44
[2023-10-29 16:40] LABS: Anion Gap 7 (5-15); BUN 15 mg/dL (7-18); BUN/Creat Ratio 10.1 RATIO (10-20); Calcium,Total 10.3 mg/dL (8.5-10.1); Chloride 107 mmol/L (98-107); Creatinine, Serum 1.49 mg/dL (0.70-1.30); EST Glomerular Filtration Rate 52 mL/min (>60); Est Glom Filt Rate - Afr Amer 62 mL/min (>60); Estimated Creatinine Clearance 62.53 ml/min; Glucose 164 mg/dL (74-106); Potassium 3.9 mmol/L (3.5-5.1); Sodium Level 139 mmol/L (136-145); Troponin-I HS (w/2H Reflex) 23 pg/mL (3.0-78.0)
[2023-10-29 16:43] LABS: BNP,B-Type NATRIURETIC PEPTIDE 8.2 pg/mL (0-100)
[2023-10-29] MEDS: Nitroglycerin Oint 1 INCH PACKET TD (17:15)
--- NOTE | 2023-10-29 17:45 | HP.PCM.HOS_ITS ---
HPI - General General Date of Admission: 10/29/23 Date of Service: 10/29/23 Chief Complaint: chest pain HPI Narrative ARYAN HUFFMAN, is a 58 M with a past medical history as outlined including CAD s/p stents who presents via the ED on 10/29/2023 with complaint of chest pain which have been going on for several days. Patient says he tried to mow his lawn over the last week and every time he tried mowing he developed chest pain. The pain was left-sided and pressure-like and radiated to his left arm. He had associated palpitations and shortness of breath which were all relieved with rest including the chest pain. He said it resembled when he had his previous heart attack requiring stents, so he decided to come in to the ED to be checked out. He denied any lightheadedness, orthopnea, dizziness or any other symptoms. Review of systems otherwise negative. He has been compliant with his medication. Vitals in the ED where blood pressure 140/95, pulse rate of 72, respiratory to 14 and temperature of 97.8 Fahrenheit. Was saturating at 95% on room air. CBC showed hemoglobin of 15.5 with WBC of 5.6 and platelets of 249. Chemistry shows sodium of 139 with potassium of 3.9 and creatinine of 1.49. Creatinine was 10.3 and BNP was 8.2. Troponins x 2 were negative. EKG showed no acute ST changes. He has been admitted to be managed for unstable angina. 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4 mg PO BID SUPPLEMENT 06/12/23 10/29/23 History aspirin 81 mg chewable tablet 81 mg PO DAILY HEART HEALTH 10/29/23 10/29/23 History doxycycline monohydrate 100 mg 100 mg PO BID ANTIBIOTIC 10/29/23 10/28/23 History capsule ezetimibe 10 mg tablet 10 mg PO DAILY CHOLESTEROL 10/29/23 10/29/23 History losartan 25 mg tablet 25 mg PO DAILY BLOOD PRESSURE 10/29/23 10/29/23 History meloxicam 15 mg tablet 15 mg PO DAILY PRN ARTHRITIS 10/29/23 Unknown History metoprolol tartrate 25 mg tablet 25 mg PO DAILY BLOOD PRESSURE 10/29/23 10/29/23 History nitroglycerin 0.4 mg sublingual 0.4 mg sublingual DAILY PRN CHEST 10/29/23 Unknown History tablet PAIN omeprazole 20 mg capsule,delayed 20 mg PO DAILY ACID REFLUX 10/29/23 10/29/23 History release Allergy/AdvReac Type Severity Reaction Status Date / Time atorvastatin (From Lipitor) AdvReac Severe mylagias Verified 10/29/23 15:31 evolocumab (From Repatha AdvReac Severe Blurred Verified 10/29/23 15:31 SureClick) vision metoprolol AdvReac Severe Rash Verified 10/29/23 15:31 hydrocodone bitartrate (From AdvReac Intermediate Itching Verified 10/29/23 15:31 Vicodin) pravastatin AdvReac GI upset Verified 10/29/23 15:31 and sore mouth Family History Mother , age 64 CAD (coronary artery disease) Rheumatic fever Brother CAD (coronary artery disease) Surgical History History of colonoscopy (~10/2019) Hx of abdominal surgery (~10/2019) Hx of hand surgery History of coronary artery stent placement (11/25/16) Social History Smoking Status: Never smoker alcohol intake: current alcohol intake frequency: a few times a month substance use type: does not use caffeine: Yes Type: coffee Number of servings: 1 ROS Review of Systems ROS Unobtainable: Denies due to encephalopathy Constitutional Constitutional: Denies anorexia, chills, fatigue, fever(s), malaise, night sweats or weakness Eyes Eyes: Denies change in vision ENT HEENT: Denies dysphagia or headache(s) Cardiovascular Cardiovascular: Reports chest pain, dyspnea on exertion and palpitations; Denies edema, lightheadedness, orthopnea, paroxysmal nocturnal dyspnea, rapid heart rate or syncope Respiratory/Chest Respiratory/Chest: Reports shortness of breath with exertion; Denies cough, dyspnea, productive cough or shortness of breath at rest Gastrointestinal Gastrointestinal: Denies abdominal pain, constipation, diarrhea, nausea or vomiting Genitourinary Genitourinary: Denies dysuria Musculoskeletal Musculoskeletal: Denies arthralgias or joint pain Neurologic Neurologic: Denies confusion, dizziness, focal weakness, headache(s), numbness, paresthesias, seizure-like activity or seizures Psychiatric Psychiatric: Denies anxiety or depression Endocrine Endocrinology: Denies change in body appearance Vital Signs Vital Signs Vital Signs: 10/29/23 15:28 10/29/23 15:31 10/29/23 15:37 Temperature 97.4 F L 97.4 F L Temperature Source Temporal Temporal Pulse Rate 93 93 Respiratory Rate 16 16 Respiratory Effort Short of Breath Blood Pressure 120/92 H 120/92 H Blood Pressure Mean 101 101 Pulse Ox 97 97 Oxygen Delivery Method Room Air Room Air 10/29/23 15:58 10/29/23 16:28 10/29/23 17:00 Temperature Temperature Source Pulse Rate 87 79 Respiratory Rate 16 16 Respiratory Effort Blood Pressure 138/96 H 127/87 H Blood Pressure Mean 110 100 Pulse Ox 96 95 96 Oxygen Delivery Method Room Air Room Air Room Air 10/29/23 17:15 Temperature Temperature Source Pulse Rate 82 Respiratory Rate Respiratory Effort Blood Pressure 135/96 H Blood Pressure Mean Pulse Ox Oxygen Delivery Method Weight Weight: 226 lb 13.69 oz Body Mass Index (BMI) 35.5 Physical Exam Const alert, oriented x3 and no apparent distress General Appearance: cooperative HEENT normocephalic, head/scalp atraumatic, hearing grossly normal bilaterally, moist oral mucous membranes and oropharynx normal Mouth: oral and palatal mucosa normal Eyes PERRL, EOMs intact bilaterally and conjunctivae normal Neck no lymphadenopathy and supple Resp normal respiratory effort, no retractions, no use of accessory muscles and clear to auscultation bilaterally Cardio regular rate, regular rhythm, S1 normal heart sound, S2 normal heart sound and no murmurs GI normal to inspection, nondistended, normoactive bowel sounds and soft to palpation Extremity normal to inspection, full ROM and no clubbing, cyanosis or edema Neuro oriented x3, CN's II-XII intact bilaterally, moves all extremities and no focal motor deficits Sensorium / Orientation: awake and alert Motor Exam: strength 5/5 throughout Psych affect normal Results Lab / Micro Data 10/29/23 15:50 10/29/23 15:50 Labs: Laboratory Results - last 24 hr 10/29/23 15:50: WBC 5.6, RBC 5.06, Hgb 15.5, Hct 46.3, MCV 91.5, MCH 30.6, MCHC 33.5, RDW Std Deviation 45.3 H, RDW Coeff of Nely 13.4, Plt Count 249, MPV 10.1, Immature Gran % (Auto) 0.200, Neut % (Auto) 71.4 H, Lymph % (Auto) 20.0, [place] % (Auto) 6.3, Eos % (Auto) 1.4, Baso % (Auto) 0.7, Absolute Neuts (auto) 4.0, Absolute Lymphs (auto) 1.11, Nucleated RBC % 0, Sodium 139, Potassium 3.9, Chloride 107, Carbon Dioxide 25.0, Anion Gap 7, BUN 15, Creatinine 1.49 H, Estim Creat Clear Calc 62.53, Est GFR (MDRD) Af Amer 62, Est GFR (MDRD) Non-Af 52 L, BUN/Creatinine Ratio 10.1, Glucose 164 H, Calcium 10.3 H, Troponin I High Sens 23, B-Natriuretic Peptide 8.2 Imaging Radiology Impression Chest X-Ray 10/29/23 15:50 IMPRESSION: No radiographic evidence of acute cardiopulmonary disease. Electronically Signed: Dez Lyn MD at 16:32 EDT , Assessment & Plan Assessment/Plan (1) Chest pain: (2) Exertional angina: PLAN: Plan #Unstable angina * Admit to PCU. Patient had exertional chest pain * With assisted exertional shortness of breath which improved with rest and radiated down his left arm. Chest pain was pressure-like. * He does have a history of CAD and had stents placed in 2017 in this right coronary artery and LAD. Procedure was complicated by proximal focal intramural hematoma of the ascending aorta and so he was transferred to [facility] afterwards. * CTE done with this admission showed no evidence of aortic dissection. * Troponins x 2 are negative. Patient on aspirin and Plavix as well as ezetimibe. * Cardiology consulted. For cardiac cath tomorrow. * Last echo was in 2020 which showed EF of 60% with normal left ventricular wall function and no regional wall motion abnormalities noted with no evidence of diastolic dysfunction. * Will order 2D echo. #CAD s/p stents: On aspirin and Plavix as well as ezetimibe as above. #Hypertension: On metoprolol and losartan. IV hydralazine as needed. #GERD: PPI #DVT prophylaxis: Lovenox CODE STATUS: Full code * Patient counseled extensively about different types of CODE STATUS including full code, DNR CCA and DNR CCA. * Patient elects to be full code. * Total icms-ew-bash time 16 minutes. Charges/Coding Visit Charges Inpatient E&M: 02067 Init Hosp L3 Procedures Hospitalists Procedures: 28080 Advncd Care Plan 30 Min
[2023-10-29 18:01] LABS: Reflex Troponin-HS? (from REC) Y
--- NOTE | 2023-10-29 18:08 | CT_ITS ---
EXAM: CT ANGIOGRAPHY CHEST WITHOUT AND WITH INTRAVENOUS CONTRAST CLINICAL INDICATION: chest pain TECHNIQUE: Helically acquired angiography images were obtained of the chest without and with intravenous contrast. This CT exam was performed using one or more of the following dose reduction techniques: automated exposure control, adjustment of the mA and/or kV according to patient size, and/or use of iterative reconstruction technique. MIP reconstructed images were created and reviewed. CONTRAST: IV 100mL [id number] COMPARISON: No relevant prior studies available. FINDINGS: PULMONARY ARTERIES: Unremarkable. Normal in caliber. No evidence of pulmonary embolism. AORTA: Unremarkable. Normal in caliber. No evidence of dissection. GREAT VESSELS OF AORTIC ARCH: Unremarkable. Normal in caliber. No evidence of dissection. LUNGS AND PLEURAL SPACES: Unremarkable. No mass. No consolidation or edema. No pleural effusion or thickening. No pneumothorax. HEART: Unremarkable. Heart size is normal. No pericardial effusion. No significant coronary artery calcifications. MEDIASTINUM: Unremarkable. No mediastinal or hilar adenopathy. Esophagus is unremarkable. No hiatal hernia. THYROID: Unremarkable. No thyroid lesions. BONES/JOINTS: Unremarkable. No suspicious lytic or blastic abnormality. CT/CTA Chest W/WO Contrast IMPRESSION: Negative CTA chest. Electronically Signed: Dez Lyn MD at 18:47 EDT ,
--- NOTE | 2023-10-29 18:08 | PCM.CONS.C ---
Assessment & Plan Assessment/Plan (1) Atherosclerotic heart disease [place]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: QUALIFIERS: [place] vs. transplanted heart: [place] heart Qualified Code(s): I25.119 - Atherosclerotic heart disease of [place] coronary artery with unspecified angina pectoris PLAN: The patient's symptoms are consistent with progressive accelerating exertional angina. There is a quality radiating through the back is concerning for potential descending aortic or aortic dissection. He does have a history of a previous dissection at [place] of the right coronary artery retrograde and antegrade up into the aorta. I would recommend a CT angiogram to evaluate the aorta. If this is the etiology of chest symptoms then he should proceed with left heart catheterization. Given the issues that occurred with his previous intervention he is concerned about having PCI performed in a setting without surgical backup. I discussed this in detail we will plan for left heart catheter patient but if patient is indicated he present back to [facility] where he had his previous evaluation for his aortic dissection. (2) Hypercholesterolemia: PLAN: Patient is intolerant to statin and Repatha therapy. He is on ezetimibe and fenofibrate this is monitored with primary service. (3) Coronary artery dissection: PLAN: Please see the #1 problem above for details (4) Essential hypertension: PLAN: Patient blood pressure is elevated today pending. Systolic blood pressures is adequately controlled PLAN: Plan 1. Perform CT angiogram of the aorta. 2. If the CTA is negative we will proceed with left heart catheterization tomorrow morning. 3. At the patient's request revascularization is indicated would prefer to transfer to [facility] so that surgical backup is labeled given his history of coronary retrograde dissection. HPI Consult Data Date of Consult: 10/29/23 HPI Narrative Reason for Consultation: Chest pain consistent with accelerating angina. HPI Narrative: ARYAN HUFFMAN, is a 58 M who presents history of discomfort that has occurred before time that he cut his grass this summer. Today he was in the grass he was able to make about 3 laps and developed some chest discomfort he sat down and it went away. He repeated this 3 times and each time after that relax he developed chest symptoms. The last he completed a little bit more rest when he is at and if she had had some shortness of breath the pain radiated through to his back and was sharp in nature. He also made his left arm and was reminiscent of the discomfort he had back when he had his PCI for coronary artery resulted in his aortic stent related dissection. The patient's migraine artery was stented ostium and created to the ascending aortic hematoma. The patient was likely in the [facility] for CT surgery evaluated him and the situation was treated conservatively with medical therapy. The patient is a 73 back, recurrent chest symptoms and had a catheter directed PCI and stenting of the left anterior descending. This all occurred in 2016. The patient was reevaluated in 2020 with an echocardiogram which showed left ejection fraction of 60% with mild aortic calcification. The patient is not able to treadmill stress testing due to arthritic changes. The patient had multiple pharmacologic stress test and RCA stents and LAD stent that did not show any ischemia. He had FFR was markedly abnormal at the time of his catheterization because of continued chest symptoms. His chest symptoms resolved after LAD stenting. 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 Patient does have a history of management beta-blockers. Last evaluated Dr. Hamilton June 2023. At that time he really had no complaints and is tolerating his medical regiment without issues. The patient's symptoms now are slightly different and that it is more sharp and radiates through to his back. He also raises his arm and that is reminiscent of the symptoms he had prior to his RCA and LAD stents. 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4 mg PO BID SUPPLEMENT 06/12/23 10/29/23 History aspirin 81 mg chewable tablet 81 mg PO DAILY HEART HEALTH 10/29/23 10/29/23 History doxycycline monohydrate 100 mg 100 mg PO BID ANTIBIOTIC 10/29/23 10/28/23 History capsule ezetimibe 10 mg tablet 10 mg PO DAILY CHOLESTEROL 10/29/23 10/29/23 History losartan 25 mg tablet 25 mg PO DAILY BLOOD PRESSURE 10/29/23 10/29/23 History meloxicam 15 mg tablet 15 mg PO DAILY PRN ARTHRITIS 10/29/23 Unknown History metoprolol tartrate 25 mg tablet 25 mg PO DAILY BLOOD PRESSURE 10/29/23 10/29/23 History nitroglycerin 0.4 mg sublingual 0.4 mg sublingual DAILY PRN CHEST 10/29/23 Unknown History tablet PAIN omeprazole 20 mg capsule,delayed 20 mg PO DAILY ACID REFLUX 10/29/23 10/29/23 History release Allergy/AdvReac Type Severity Reaction Status Date / Time atorvastatin (From Lipitor) AdvReac Severe mylagias Verified 10/29/23 15:31 evolocumab (From Repatha AdvReac Severe Blurred Verified 10/29/23 15:31 SureClick) vision metoprolol AdvReac Severe Rash Verified 10/29/23 15:31 hydrocodone bitartrate (From AdvReac Intermediate Itching Verified 10/29/23 15:31 Vicodin) pravastatin AdvReac GI upset Verified 10/29/23 15:31 and sore mouth Family History Mother , age 64 CAD (coronary artery disease) Rheumatic fever Brother CAD (coronary artery disease) Surgical History History of colonoscopy (~10/2019) Hx of abdominal surgery (~10/2019) Hx of hand surgery History of coronary artery stent placement (11/25/16) Social History Smoking Status: Never smoker alcohol intake: current alcohol intake frequency: a few times a month substance use type: does not use caffeine: Yes Type: coffee Number of servings: 1 ROS Constitutional Constitutional: Reports as per HPI Eyes Eyes: Reports systems reviewed and no addt'l complaints, except as documented ENT HEENT: Reports systems reviewed and no addt'l complaints, except as documented Cardiovascular Cardiovascular: Reports as per HPI Respiratory/Chest Respiratory/Chest: Reports as per HPI Gastrointestinal Gastrointestinal: Reports systems reviewed and no addt'l complaints, except as documented Genitourinary Genitourinary: Reports systems reviewed and no addt'l complaints, except as documented Musculoskeletal Musculoskeletal: Reports as per HPI Integumentary Integumentary: Reports systems reviewed and no addt'l complaints, except as documented Neurologic Neurologic: Reports systems reviewed and no addt'l complaints, except as documented Psychiatric Psychiatric: Reports systems reviewed and no addt'l complaints, except as documented Endocrine Endocrinology: Reports systems reviewed and no addt'l complaints, except as documented Hematologic/Lymphatic Hematologic/Lymphatic: Reports systems reviewed and no addt'l complaints, except as documented Allergic/Immunologic Allergic/Immunologic: Reports as per HPI Physical Exam Const alert and oriented x3 HEENT normocephalic Eyes EOMs intact bilaterally Neck no JVD Chest inspection of chest normal Resp normal respiratory effort and clear to auscultation bilaterally Cardio regular rate, regular rhythm, S1 normal heart sound and S2 normal heart sound; Negative for no murmurs, no rub or no gallops Peripheral Pulses: pulses 2+ throughout GI soft to palpation and no bruits Extremity no pedal edema Skin no rashes or lesions noted Neuro Neuro Narrative: Alert and oriented x 3. Psych mental status grossly normal Risk Stratification Risk Stratification Applicable: Yes Age >/= 65: No >/= 3 CAD Risk Factors (HTN, HLD, DM, family hx of CAD, or current smoker): Yes Aspirin Use in the Past 7 Days: Yes Severe Angina (>/= episodes in 24 hours): Yes EKG ST Changes >/= 0.5mm: No Positive Cardiac Marker: No PRIMO Risk Stratification Score: 3 PRIMO % Risk: 13% Risk Charges/Coding Visit Charges Inpatient E&M: 91007 Init Hosp L3 Objective Data Vital Signs: Vital Signs Temp Pulse Resp BP Pulse Ox O2 Del Method 97.0 F L 76 16 127/75 H 93 Room Air 10/29/23 18:00 10/29/23 18:00 10/29/23 18:00 10/29/23 18:00 10/29/23 18:00 10/29/23 18:00 Oxygen Delivery Method Room Air Weight: 226 lb 13.69 oz Body Mass Index (BMI) 35.5 Intake & Output: Intake and Output for Last 24 Hours 10/27/23 10/28/23 10/29/23 23:59 23:59 23:59 Intake Total 0 / 0 Balance 0 / 0 Lab / Micro Data Attestation: I reviewed the patient's lab results. 10/29/23 15:50 10/29/23 15:50 Labs: Laboratory Results - last 24 hr 10/29/23 15:50: WBC 5.6, RBC 5.06, Hgb 15.5, Hct 46.3, MCV 91.5, MCH 30.6, MCHC 33.5, RDW Std Deviation 45.3 H, RDW Coeff of Nely 13.4, Plt Count 249, MPV 10.1, Immature Gran % (Auto) 0.200, Neut % (Auto) 71.4 H, Lymph % (Auto) 20.0, Noble % (Auto) 6.3, Eos % (Auto) 1.4, Baso % (Auto) 0.7, Absolute Neuts (auto) 4.0, Absolute Lymphs (auto) 1.11, Nucleated RBC % 0, Sodium 139, Potassium 3.9, Chloride 107, Carbon Dioxide 25.0, Anion Gap 7, BUN 15, Creatinine 1.49 H, Estim Creat Clear Calc 62.53, Est GFR (MDRD) Af Amer 62, Est GFR (MDRD) Non-Af 52 L, BUN/Creatinine Ratio 10.1, Glucose 164 H, Calcium 10.3 H, Troponin I High Sens 23, B-Natriuretic Peptide 8.2 Cardiology Labs/Tests 10/29/23 15:50: WBC 5.6, RBC 5.06, Hgb 15.5, Hct 46.3, MCV 91.5, MCH 30.6, MCHC 33.5, Plt Count 249, MPV 10.1, Immature Gran % (Auto) 0.200, Neut % (Auto) 71.4 H, Lymph % (Auto) 20.0, Noble % (Auto) 6.3, Eos % (Auto) 1.4, Baso % (Auto) 0.7, Absolute Neuts (auto) 4.0, Nucleated RBC % 0, Sodium 139, Potassium 3.9, Chloride 107, Carbon Dioxide 25.0, Anion Gap 7, BUN 15, Creatinine 1.49 H, Est GFR (MDRD) Af Amer 62, Est GFR (MDRD) Non-Af 52 L, BUN/Creatinine Ratio 10.1, Glucose 164 H, Calcium 10.3 H, B-Natriuretic Peptide 8.2 Rhythm: EKG: ECHO: Stress Test: Cardiac Cath: PCI: CT Surgery: Holter monitor: EPS: PPM: CXR: Chest CT Scan: Radiography Diagnostic Testing: Radiology Impression Chest X-Ray 10/29/23 15:50 IMPRESSION: No radiographic evidence of acute cardiopulmonary disease. Electronically Signed: Dez Lyn MD at 16:32 EDT , EKG Normal sinus, within normal limits.: Attestation: I personally reviewed and interpreted this EKG as follows: Prior EKG tracings: not available for review Interpretation: Normal sinus rhythm no acute ischemic changes.
--- NOTE | 2023-10-29 19:00 | EKG12_ITS ---
Test Reason : AM EKG Blood Pressure : / mmHG Vent. Rate : 061 BPM Atrial Rate : 061 BPM P-R Int : 148 ms QRS Dur : 098 ms QT Int : 422 ms P-R-T Axes : 023 011 015 degrees QTc Int : 424 ms Normal sinus rhythm Normal ECG When compared with ECG of 29-OCT-2023 19:05, MANUAL COMPARISON REQUIRED, DATA IS UNCONFIRMED Confirmed by Kal Simeon ([id number]), city editor CECY CARCAMO ([id number]) on 10/30/2023 10:30:22 AM Referred By: IKE Confirmed By:Kal Simeon
[2023-10-29 19:14] LABS: Troponin-I HS 29 pg/mL (3.0-78.0)
[2023-10-29] MEDS: 0.9% Normal Saline (1000mL) 1,000 ML 125 ML IV (20:17)
[2023-10-29] MEDS: Acetaminophen 325 MG Tablet 650 MG PO (21:55)
[2023-10-29] MEDS: traZODone 50 MG Tablet 75 MG PO (21:56)
[2023-10-29] MEDS: Doxazosin 4 MG Tablet PO (21:57)
[2023-10-30] VITALS (12 sets, daily range): BP systolic 106–126; BP diastolic 68–91; PULSE 58–72; RESP 16–18; TEMP 36.4–36.6; O2SAT 93–98
[2023-10-30] MEDS: 0.9% Normal Saline (1000mL) 1,000 ML 125 ML IV (03:46)
--- NOTE | 2023-10-30 05:55 | EKG12_ITS ---
Test Reason : CP ADMIT Blood Pressure : / mmHG Vent. Rate : 067 BPM Atrial Rate : 067 BPM P-R Int : 156 ms QRS Dur : 096 ms QT Int : 390 ms P-R-T Axes : 017 009 019 degrees QTc Int : 412 ms Normal sinus rhythm Normal ECG When compared with ECG of 29-OCT-2023 15:53, MANUAL COMPARISON REQUIRED, DATA IS UNCONFIRMED Confirmed by Kal Simeon ([id number]), city editor CECY CARCAMO ([id number]) on 10/30/2023 10:30:39 AM Referred By: IKE Confirmed By:Kal Simeon
--- NOTE | 2023-10-30 05:55 | ECHOD_ITS ---
Reason For Study: CHEST OAIN Procedure This was a 2D Doppler, Color Flow transthoracic echocardiogram. Exam performed portable in patient room. Left Ventricle Normal LV size. The estimated ejection fraction is 65 %. No evidence for diastolic dysfunction. No regional wall motion abnormalities noted. Right Ventricle Normal RV size. Normal systolic function. Atria The left and right atria are normal. No doppler evidence for ASD. Mitral Valve There is no mitral valve stenosis. No mitral valve insufficiency. Tricuspid Valve There is no tricuspid stenosis. Unable to estimate RV systolic pressure due to inadequate jet, pulmonary artery pressure probably normal. Aortic Valve Trisinus/trileaflet aortic valve. There is no aortic stenosis. No aortic valve insufficiency. Pulmonic Valve There is no pulmonic valvular stenosis. No pulmonic valve insufficiency. Great Vessels Normal aortic root. Pericardium/Pleural No pericardial effusion. MMode/2D Measurements & Calculations LVIDd: 5.0 cm IVSd: 1.1 cm Ao root diam: 3.5 cm LVIDs: 3.3 cm LVPWd: 1.3 cm FS: 34.3 % LAV(MOD-bp): 45.1 ml LVAd ap4: 24.1 cm2 SV(MOD-sp4): 38.9 ml LAV(MOD-bp) Indexed: 21.2 ml/m2 LVLd ap4: 7.7 cm LAV(MOD-sp2): 39.4 ml EDV(MOD-sp4): 63.2 ml LAV(MOD-sp4): 46.7 ml EDV(sp4-el): 64.1 ml LVAs ap4: 13.2 cm2 LVLs ap4: 6.3 cm ESV(MOD-sp4): 24.2 ml ESV(sp4-el): 23.6 ml EF(MOD-sp4): 61.6 % EF(sp4-el): 63.1 % SV(sp4-el): 40.5 ml LA A4 area: 18.0 cm2 LA dimension(2D): 4.1 cm RA A4 area: 12.9 cm2 TAPSE: 2.0 cm Time Measurements MV dec time: 0.19 sec Doppler Measurements & Calculations MV E max antonio: 90.2 cm/sec Lat Peak E' Antonio: 11.8 cm/sec Med Peak E' Antonio: 10.8 cm/sec MV A max antonio: 65.8 cm/sec E/E' lat: 7.7 E/E' med: 8.3 MV E/A: 1.4 MV V2 max: 88.2 cm/sec Ao V2 max: 156.2 cm/sec MV max P.1 mmHg MV dec slope: 472.0 cm/sec2 Ao max P.8 mmHg MV V2 mean: 51.7 cm/sec Ao V2 mean: 100.5 cm/sec MV mean P.2 mmHg Ao mean P.8 mmHg MV V2 VTI: 34.6 cm Ao V2 VTI: 33.5 cm AV (velocity ratio): 0.79 LV V1 max: 122.1 cm/sec PA V2 max: 84.1 cm/sec LV V1 max P.0 mmHg PA V2 mean: 58.5 cm/sec LV V1 mean P.2 mmHg LV V1 mean: 84.9 cm/sec LV V1 VTI: 26.5 cm ECHO/Echo Complete Interpretation Summary The estimated ejection fraction is 65 %. No evidence for diastolic dysfunction. Ordering Physician: Lisha Green Referring Physician: COSME BERGER Performed By: Bailee Menjivar RCS
[2023-10-30] MEDS: Aspirin 81 MG TAB.CHEW PO (06:27)
[2023-10-30] MEDS: Clopidogrel Bisulfate 75 MG Tablet PO (06:28)
[2023-10-30] MEDS: Losartan Potassium 25 MG Tablet PO (06:28)
[2023-10-30] MEDS: Metoprolol Tartrate 25 MG Tablet PO (06:28)
[2023-10-30 06:51] LABS: Absolute Lymphocyte Count 0.96 X10^3/uL (0.83-4.51); Absolute Neutrophil Count 3.4 X10^3/uL (2.0-7.7); Basophil# 0.03 X10^3/uL; Basophil% 0.6 % (0-1); Eosinophil# 0.07 X10^3/uL; Eosinophils% 1.4 % (0-5); Hematocrit 43.3 % (40-54); Lymphocyte # 0.96 X10^3/ul (0.83-4.51); Lymphocyte % 19.5 % (19-41); Mean Corp Hgb Conc 32.3 g/dL (32-36); Mean Corpuscular Hgb 29.7 pg (27.0-32.0); Mean Corpuscular Volume 91.9 fL (80-94); Monocyte# 0.44 X10^3/uL; Monocyte% 8.9 % (0-10); NRBC Flagged by Analyzer 0 % (0-5); Neutrophil # 3.42 X10^3/uL (2.7-7.7); Neutrophil % 69.4 % (47-70); Platelet Count 230 K/mm3 (150-450); RBC Distribution Width CV 13.4 % (11.6-14.6); RBC Distribution Width SD 45.5 fl (35.1-43.9); Red Blood Count 4.71 M/mm3 (4.6-6.2); White Blood Count 4.9 K/mm3 (4.4-11.0)
--- NOTE | 2023-10-30 07:40 | PCM.PN.CARD ---
Subjective Subjective The patient denies any recurrent chest symptoms. He has complained of a headache overnight but he is was placed on transcutaneous nitrates. The patient's high-sensitivity troponins are negative x 2 sets. His EKG showed a normal sinus rhythm and was normal. However, the patient's symptoms are classic for accelerating angina. He has had a history of negative stress test followed by an LAD lesion being diagnosed by cath and required stenting. This was a pharmacologic stress test he is unable to walk treadmill due to orthopedic issues with his hip. Objective Data Vital Signs: Vital Signs Temp Pulse Resp BP Pulse Ox O2 Del Method 97.9 F 67 18 120/77 97 Room Air 10/30/23 06:27 10/30/23 06:28 10/30/23 06:27 10/30/23 06:28 10/30/23 06:27 10/30/23 07:34 Oxygen Delivery Method Room Air Weight: 226 lb 13.69 oz Body Mass Index (BMI) 35.5 Intake & Output: Intake and Output for Last 24 Hours 10/28/23 10/29/23 10/30/23 23:59 23:59 23:59 Intake Total 0 / 0 935.42 / 935.42 Balance 0 / 0 935.42 / 935.42 Lab / Micro Data Attestation: I reviewed the patient's lab results. 10/30/23 06:23 10/29/23 15:50 Labs: Laboratory Results - last 24 hr 10/29/23 15:50: WBC 5.6, RBC 5.06, Hgb 15.5, Hct 46.3, MCV 91.5, MCH 30.6, MCHC 33.5, RDW Std Deviation 45.3 H, RDW Coeff of Nely 13.4, Plt Count 249, MPV 10.1, Immature Gran % (Auto) 0.200, Neut % (Auto) 71.4 H, Lymph % (Auto) 20.0, [place] % (Auto) 6.3, Eos % (Auto) 1.4, Baso % (Auto) 0.7, Absolute Neuts (auto) 4.0, Absolute Lymphs (auto) 1.11, Nucleated RBC % 0, Sodium 139, Potassium 3.9, Chloride 107, Carbon Dioxide 25.0, Anion Gap 7, BUN 15, Creatinine 1.49 H, Estim Creat Clear Calc 62.53, Est GFR (MDRD) Af Amer 62, Est GFR (MDRD) Non-Af 52 L, BUN/Creatinine Ratio 10.1, Glucose 164 H, Calcium 10.3 H, Troponin I High Sens 23, B-Natriuretic Peptide 8.2 10/29/23 18:40: Troponin I High Sens 29 10/30/23 06:23: WBC 4.9, RBC 4.71, Hgb 14.0, Hct 43.3, MCV 91.9, MCH 29.7, MCHC 32.3, RDW Std Deviation 45.5 H, RDW Coeff of Nely 13.4, Plt Count 230, MPV 10.0, Immature Gran % (Auto) 0.200, Neut % (Auto) 69.4, Lymph % (Auto) 19.5, [place] % (Auto) 8.9, Eos % (Auto) 1.4, Baso % (Auto) 0.6, Absolute Neuts (auto) 3.4, Absolute Lymphs (auto) 0.96, Nucleated RBC % 0 Rhythm Strip Rhythm Strip: Sinus Rhythm Rate: 60 Cardiology Labs/Tests 10/29/23 15:50: WBC 5.6, RBC 5.06, Hgb 15.5, Hct 46.3, MCV 91.5, MCH 30.6, MCHC 33.5, Plt Count 249, MPV 10.1, Immature Gran % (Auto) 0.200, Neut % (Auto) 71.4 H, Lymph % (Auto) 20.0, [place] % (Auto) 6.3, Eos % (Auto) 1.4, Baso % (Auto) 0.7, Absolute Neuts (auto) 4.0, Nucleated RBC % 0, Sodium 139, Potassium 3.9, Chloride 107, Carbon Dioxide 25.0, Anion Gap 7, BUN 15, Creatinine 1.49 H, Est GFR (MDRD) Af Amer 62, Est GFR (MDRD) Non-Af 52 L, BUN/Creatinine Ratio 10.1, Glucose 164 H, Calcium 10.3 H, B-Natriuretic Peptide 8.2 10/30/23 06:23: WBC 4.9, RBC 4.71, Hgb 14.0, Hct 43.3, MCV 91.9, MCH 29.7, MCHC 32.3, Plt Count 230, MPV 10.0, Immature Gran % (Auto) 0.200, Neut % (Auto) 69.4, Lymph % (Auto) 19.5, [place] % (Auto) 8.9, Eos % (Auto) 1.4, Baso % (Auto) 0.6, Absolute Neuts (auto) 3.4, Nucleated RBC % 0 Rhythm: EKG: ECHO: Stress Test: Cardiac Cath: PCI: CT Surgery: Holter monitor: EPS: PPM: CXR: Chest CT Scan: Radiography Diagnostic Testing: Radiology Impression Chest X-Ray 10/29/23 15:50 IMPRESSION: No radiographic evidence of acute cardiopulmonary disease. Electronically Signed: Dez Lyn MD at 16:32 EDT , Chest CTA 10/29/23 18:08 IMPRESSION: Negative CTA chest. Electronically Signed: Dez Lyn MD at 18:47 EDT , Physical Exam Const alert and oriented x3 HEENT normocephalic Eyes EOMs intact bilaterally Neck no JVD Chest inspection of chest normal Resp normal respiratory effort and clear to auscultation bilaterally Cardio regular rate, regular rhythm, S1 normal heart sound, S2 normal heart sound, no murmurs, no rub and no gallops Extremity no pedal edema Skin no rashes or lesions noted Neuro Neuro Narrative: Alert and oriented x 3 Psych mental status grossly normal Assessment & Plan Assessment/Plan (1) Atherosclerotic heart disease [place]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: QUALIFIERS: [place] vs. transplanted heart: [place] heart Qualified Code(s): I25.119 - Atherosclerotic heart disease of [place] coronary artery with unspecified angina pectoris PLAN: The patient has a history of coronary artery stenting in 2017 the right coronary artery which was complicated by a dissection up into the ascending aorta. He also has a history of LAD stent and the patient's symptoms are classic for an accelerating angina. His enzymes are negative and his EKG does not show any acute ischemic changes. He has not not an ideal candidate for stress testing given the fact he had a falsely normal pharmacologic stress test in the past and he cannot walk treadmill due to hip issues. Given his history I would recommend that he proceed with left heart catheterization. The patient is reluctant to have any type of intervention done without surgical backup available. He is agreeable to have a left heart catheterization I believe that is reasonable to do given the fact he has negative enzymes and negative EKG. The cath procedure risk/benefit and alternatives were explained to the patient in detail. He voiced understanding and agrees to proceed. PLAN: Plan 1. Left heart catheterization today. 2. If further intervention is needed the patient request transfer to [facility] and I will arrange that transfer as needed. Charges/Coding Visit Charges Inpatient E&M: 79026 Init Hosp L2
[2023-10-30 08:24] LABS: Anion Gap 8 (5-15); BUN 14 mg/dL (7-18); BUN/Creat Ratio 11.9 RATIO (10-20); Chloride 111 mmol/L (98-107); Creatinine, Serum 1.18 mg/dL (0.70-1.30); EST Glomerular Filtration Rate 68 mL/min (>60); Est Glom Filt Rate - Afr Amer 82 mL/min (>60); Estimated Creatinine Clearance 78.96 ml/min; Glucose 104 mg/dL (74-106); Potassium 3.8 mmol/L (3.5-5.1); Sodium Level 141 mmol/L (136-145)
--- NOTE | 2023-10-30 09:22 | CASEMGMT ---
Insurance review for hospitals In-network with?[employer] insurance if transfer is recommended is as follows: [facility], [place], [facility], [facility], [facility], [facility] ([facility]), [facility], [facility], and . Enid Hannon, Discharge Planning Asst.
--- NOTE | 2023-10-30 10:26 | PCM.PN.HOSP ---
Subjective Subjective Doing well, chest pain is resolved Objective Data Objective Data Vital Signs: Vital Signs Temp Pulse Resp BP Pulse Ox O2 Del Method 97.9 F 67 18 120/77 94 Room Air 10/30/23 06:27 10/30/23 06:28 10/30/23 06:27 10/30/23 06:28 10/30/23 07:40 10/30/23 07:40 Oxygen Delivery Method Room Air Weight: 226 lb 13.69 oz Body Mass Index (BMI) 35.5 Intake & Output: Intake and Output for Last 24 Hours 10/29/23 10/30/23 10/31/23 03:59 03:59 03:59 Intake Total 935.42 / 935.42 Balance 935.42 / 935.42 Lab / Micro Data 10/30/23 06:23 10/30/23 06:23 Labs: Laboratory Results - last 24 hr 10/29/23 15:50: WBC 5.6, RBC 5.06, Hgb 15.5, Hct 46.3, MCV 91.5, MCH 30.6, MCHC 33.5, RDW Std Deviation 45.3 H, RDW Coeff of Nely 13.4, Plt Count 249, MPV 10.1, Immature Gran % (Auto) 0.200, Neut % (Auto) 71.4 H, Lymph % (Auto) 20.0, [place] % (Auto) 6.3, Eos % (Auto) 1.4, Baso % (Auto) 0.7, Absolute Neuts (auto) 4.0, Absolute Lymphs (auto) 1.11, Nucleated RBC % 0, Sodium 139, Potassium 3.9, Chloride 107, Carbon Dioxide 25.0, Anion Gap 7, BUN 15, Creatinine 1.49 H, Estim Creat Clear Calc 62.53, Est GFR (MDRD) Af Amer 62, Est GFR (MDRD) Non-Af 52 L, BUN/Creatinine Ratio 10.1, Glucose 164 H, Calcium 10.3 H, Troponin I High Sens 23, B-Natriuretic Peptide 8.2 10/29/23 18:40: Troponin I High Sens 29 10/30/23 06:23: WBC 4.9, RBC 4.71, Hgb 14.0, Hct 43.3, MCV 91.9, MCH 29.7, MCHC 32.3, RDW Std Deviation 45.5 H, RDW Coeff of Nely 13.4, Plt Count 230, MPV 10.0, Immature Gran % (Auto) 0.200, Neut % (Auto) 69.4, Lymph % (Auto) 19.5, [place] % (Auto) 8.9, Eos % (Auto) 1.4, Baso % (Auto) 0.6, Absolute Neuts (auto) 3.4, Absolute Lymphs (auto) 0.96, Nucleated RBC % 0, Sodium 141, Potassium 3.8, Chloride 111 H, Carbon Dioxide 22.0, Anion Gap 8, BUN 14, Creatinine 1.18, Estim Creat Clear Calc 78.96, Est GFR (MDRD) Af Amer 82, Est GFR (MDRD) Non-Af 68, BUN/Creatinine Ratio 11.9, Glucose 104, Calcium 9.0 Radiography Diagnostic Testing: Radiology Impression Chest X-Ray 10/29/23 15:50 IMPRESSION: No radiographic evidence of acute cardiopulmonary disease. Electronically Signed: Dez Lyn MD at 16:32 EDT , Chest CTA 10/29/23 18:08 IMPRESSION: Negative CTA chest. Electronically Signed: Dez Lyn MD at 18:47 EDT , Rhythm Strip Rhythm Strip: Sinus Rhythm Rate: 60 Physical Exam Narrative General: Alert, Oriented x3, Cooperative, No apparent distress HEENT: Atraumatic, PERRLA, EOMI, Normocephalic Oral: Moist Mucosa Neck: Supple, No JVD Lungs: Diminished, Normal air movement, No rhonchi, No wheeze, No rales Cardiovascular: Regular rate, Regular Rhythm, Normal S1, Normal S2, No murmurs Abdomen: Soft, Non Tender, Non-Distended, No Hepato-splenomegaly Extremities: No edema, Capillary Refill Less than 3 Seconds Skin: No rashes, No breakdown Musculoskeletal: No Tenderness to Palpation of Joints or Extremities Neurological: No focal neurological deficits, Motor Exam 5/5 strength throughout, Sensory exam intact to light touch and pain Psych/Mental Status: Normal Affect, Appropriate Assessment & Plan Assessment/Plan (1) Chest pain: (2) Exertional angina: PLAN: Plan 1. Unstable angina/CAD status post stent/essential HTN/HLD ? He had previous stents that were complicated by a dissection of the ascending aorta ? Will proceed with heart cath though intervention may require tertiary care center transfer ? Appreciate cardiology's assistance ? His troponins remain negative and he is no longer having any chest pain ? Echo pending ? Hold blood pressure medications ? Continue with aspirin and Plavix as well as Zetia 2. GERD ? Stable ? Continue with PPI 3. BPH ? Stable ? Continue with home medications DVT: Lovenox Charges/Coding Visit Charges Inpatient E&M: 40171 Subs Hosp L2
--- NOTE | 2023-10-30 13:00 | CRPHASE1_ITS ---
Patient Communication Patient Information Former Patient:: Phase I PHII Cardiac Rehab Discussed with Patient:: Yes Guide to Cardiac Rehab Given to Patient:: Yes Cardiac Rehab Facility Choice List Given to Patient:: Yes Communication to Cardiac Rehab Choice Program [facility] CR PHII:: Communication Given to CR and Refer to [facility] Photogrammetry Airplane Pilot:: Shasha Moya Refer Phase II Cardiac Rehab:: Yes Post Discharge Phase I Charge:: Level I - Education Medical/Surgical History Medical History ND:: No Angina:: Yes CAD:: Yes Congestive Heart Failure: Hypertension:: Yes Dyslipidemia:: Yes CVA/TIA: Other Medical/Surgical Issues:: arthritis Surgical History PTCA:: Yes Orthopedic:: Yes (shoulder and hand) Cardiac Rehabilitation Info Program Information Cardiac Rehabilitation Program Information: Cardiac Rehab The cardiac rehab team at [facility] consists of highly skilled exercise physiologists, nurses, respiratory therapists and physicians working together with you. Our purpose is to help you have a full recovery and achieve the goals you set for yourself. Over the years many of our patients have returned to activities they assumed they would never do again! We can help restore your confidence and motivation to make lifestyle changes that can have a significant impact on your health and quality of life! We can help answer questions and concerns you may have about exercise, lifestyle, medications, diet, stress and anxiety which are common following a hospitalization. WE monitor ECG and vital signs during exercise and discuss your progress with you and report to your physician(s). Cardiac Rehab is proven to help reduce readmissions, improve functional capacity and lower recurrence of problems with your heart. Our Cardiac Rehab program is Certified by the [place] [employer] Pulmonary [employer] (AACVPR) and Accredited by the [place] [employer] through our [facility]. You can contact us at . We invite you to call us with your questions or to get started in our program. If you have other questions or concerns be sure to ask your physician/provider during your follow-up visit. WE look forward to seeing you!
--- NOTE | 2023-10-30 13:03 | CRPH1.INST_ITS ---
General Education Discussed with Patient CAD and cardiac anatomy and function:: Patient communicates acknowledgment, Family communicates acknowledgment, Patient returns demonstration and Family returns demonstration Explanation of diagnoses and procedures:: Patient communicates acknowledgment, Family communicates acknowledgment, Patient returns demonstration and Family returns demonstration Sign/Symptoms of HI:: Patient communicates acknowledgment, Family communicates acknowledgment, Patient returns demonstration and Family returns demonstration Antiplatelet therapy: Patient communicates acknowledgment, Family communicates acknowledgment, Patient returns demonstration and Family returns demonstration Proper use of NTG-SL: Patient communicates acknowledgment, Family communicates acknowledgment, Patient returns demonstration and Family returns demonstration Emergency procedures and activation of EMS: Patient communicates acknowledgment, Family communicates acknowledgment, Patient returns demonstration and Family returns demonstration Compliance of all prescribed medications: Patient communicates acknowledgment, Family communicates acknowledgment, Patient returns demonstration and Family returns demonstration Smoking Risk Factors Patient Nicotine/Smoking Risk Factors Are:: Never smoked Response Code Nicotine/Smoking Response Code:: Not instructed Dyslipidemia Risk Factors Patient Dyslipidemia Risk Factors Are:: Total Cholesterol, Triglycerides, HDL and LDL Recommendations Recommendations Include:: Lipid profile provided and Therapeutic Lifestyle Change dietary guidelines Response Code Dyslipidemia Response Code:: Patient communicates acknowledgment, Family com municates acknowledgment, Patient returns demonstration and Family returns demonstration Overweight/Obesity Risk Factors Patient Overweight/Obesity Risk Factors Are:: Obesity - > or = 30 (35.5) Recommendations Recommendations Include:: Weight loss of 5-10% and Reduced calorie diet Response Code Overweight/Obesity:: Patient communicates acknowledgment, Family communicates acknowledgment, Patient returns demonstration and Family returns demonstration Hypertension Recommendations Recommendations Include:: Maintain BP <130/85, BP <130/80 if diabetic and Decrease/maintain normal body weight Response Code Hypertension:: Patient communicates acknowledgment, Family communicates acknowledgment, Patient returns demonstration and Family returns demonstration Heart Disease Risk Factors Patient Heart Disease Risk Factors Are:: Family history of heart disease < 65 years old and Previous cardiac event Recommendations Recommendations Include:: Educated family members of their risk and Educated family members of importance of prevention of heart disease Response Code Heart Disease Response Code:: Patient communicates acknowledgment, Family communicates acknowledgment, Patient returns demonstration and Family returns demonstration Diabetes Risk Factors Patient Diabetes Risk Factors Are:: No documented hx of diabetes Response Code Diabetes:: Not instructed Metabolic Syndrome Risk Factors Patient Metabolic Syndrome Risk Factors Are [3 of 5]:: Hypertension Recommendations Recommendations Include:: Reinforce compliance to risk factor modifications and Encouraged follow-up with Primary Care Physician Response Code Metabolic Syndrome Response Code:: Patient communicates acknowledgment, Family communicates acknowledgment, Patient returns demonstration and Family returns demonstration Sedentary Risk Factors Patient Sedentary Risk Factors Are:: Lack of regular exercise Recommendations Recommendations Include:: Benefits of regular exercise and Monitored Outpatient Cardiac Rehab Response Code Sedentary Response Code:: Patient communicates acknowledgment, Family communicates acknowledgment, Patient returns demonstration and Family returns demonstration Stress Recommendations Recommendations Include:: Identification of stressors, and assessment of coping skills and Stress management techniques Response Code Stress Response Code:: Patient communicates acknowledgment, Family communicates acknowledgment, Patient returns demonstration and Family returns demonstration
[2023-10-30] MEDS: Ezetimibe 10 MG Tablet PO (13:14)
[2023-10-30] MEDS: Fenofibrate 145 MG Tablet PO (13:14)
[2023-10-30] MEDS: Cholecalciferol (VIT D3) 25 MCG TABLET (1,000 UNITS) PO (13:14)
[2023-10-30] MEDS: Pantoprazole Sodium 20 MG Tablet PO (13:14)
--- NOTE | 2023-10-30 13:15 | EKG12_ITS ---
Test Reason : PCI Blood Pressure : / mmHG Vent. Rate : 065 BPM Atrial Rate : 065 BPM P-R Int : 160 ms QRS Dur : 100 ms QT Int : 406 ms P-R-T Axes : 021 007 032 degrees QTc Int : 422 ms Normal sinus rhythm Normal ECG When compared with ECG of 30-OCT-2023 05:22, No significant change was found Confirmed by IKE JIN, ZAK ([id number]), editorial intern CECY CARCAMO ([id number]) on 11/05/2023 6:39:43 AM Referred By: IKE Confirmed By:JACKSON RAMIRES MD
[2023-10-30] MEDS: 0.9% Normal Saline (1000mL) 1,000 ML 60 ML IV (14:37)
--- NOTE | 2023-10-30 14:45 | CASEMGMT ---
RN CM Face to Face with patient for initial transition planning/care coordination assessment. RN CM introduced self and role at [facility]. Patient lying in bed, alert and oriented. Patient willing to participate in assessment and is able to answer all questions appropriately. Care providers, pharmacy, and demographics verified. PCP: Steven Specialists: [facility] and home health aides teacher Preferred Pharmacy: [facility] Insurance: [facility] Prescription Benefit: yes Living Will/HPOA: none LNOK: significant other Living Arrangements: Patient lives with significant other in a split level home with 6 steps and railing between levels. Patient is independent and able to ambulate stairs. Transportation: self, girlfriend DME/HHC: Patient denies DME in the home. No previous HHC or SNF Patient wishes to discharge home, denies need for home health at this time. Patient states he has no further needs or concerns at this time. CM to follow for discharge planning needs that may arise. Disposition Plan: Patient to discharge home with family support and follow-up plans in place. Elizabeth AMARO, RN, CM
--- NOTE | 2023-10-30 15:18 | CHAPLAIN ---
Type of Pastoral Visit _x__ Initial Visit ___ Follow-up Visit ___ On-call Visit ___ General Patient Visit ___ Spiritual Assessment ___ Family Conference ___ Bereavement ___ Rapid Response ___ Code Blue ___ Other (describe below) Pastoral Care Referral From _x__ Patient ___ Family ___ Nurse ___ Physician ___ Sewage Disposal Worker ___ Diversified Crops Supervisor ___ Other (describe below) Sacrament/Intervention _x__ Active listening ___ Anointing ___ Denominational ___ Bereavement ___ Communion ___ Emmie exploration ___ ___ Life review ___ Prayer ___ Reconciliation ___ Sacrament of Sick ___ Supportive presence ___ Wedding ___ Other (describe below) Pastoral Comments patient says that he is doing fine, has no needs or concerns but also gives long answers about his health, his history with heart issues, his clean living which should have resulted in better health, and how his perspective of low stress is helpful to his overall wellbeing;
[2023-10-30] MEDS: Acetaminophen 325 MG Tablet 650 MG PO (20:34)
[2023-10-30] MEDS: Doxycycline 100 MG CAPSULE PO (21:52)
[2023-10-30] MEDS: Doxazosin 4 MG Tablet PO (21:52)
[2023-10-30] MEDS: traZODone 50 MG Tablet 75 MG PO (21:54)
[2023-10-31 03:52] VITALS: BP 126/79; PULSE 66; RESP 12; TEMP 36.4; O2SAT 96
[2023-10-31 07:11] LABS: Absolute Lymphocyte Count 0.88 X10^3/uL (0.83-4.51); Absolute Neutrophil Count 2.8 X10^3/uL (2.0-7.7); Basophil# 0.03 X10^3/uL; Basophil% 0.7 % (0-1); Eosinophil# 0.09 X10^3/uL; Eosinophils% 2.1 % (0-5); Hematocrit 43.2 % (40-54); Hemoglobin 14.5 g/dL (13.0-16.5); Lymphocyte # 0.88 X10^3/ul (0.83-4.51); Lymphocyte % 20.7 % (19-41); Mean Corp Hgb Conc 33.6 g/dL (32-36); Mean Corpuscular Hgb 30.8 pg (27.0-32.0); Mean Corpuscular Volume 91.7 fL (80-94); Monocyte# 0.42 X10^3/uL; Monocyte% 9.9 % (0-10); NRBC Flagged by Analyzer 0 % (0-5); Neutrophil # 2.81 X10^3/uL (2.7-7.7); Neutrophil % 66.1 % (47-70); Platelet Count 223 K/mm3 (150-450); RBC Distribution Width CV 13.4 % (11.6-14.6); RBC Distribution Width SD 45.3 fl (35.1-43.9); Red Blood Count 4.71 M/mm3 (4.6-6.2); White Blood Count 4.3 K/mm3 (4.4-11.0)
[2023-10-31] MEDS: 0.9% Normal Saline (1000mL) 1,000 ML 15 ML IV (07:41)
[2023-10-31 07:45] LABS: ALB/GLOB Ratio 1.1 RATIO (0.9-2.4); AST(SGOT) 20 U/L (15-37); Alanine Aminotransfer ALT/SGPT 30 U/L (16-61); Albumin, Serum 3.5 g/dL (3.2-5.0); Alkaline Phosphatase 41 U/L (45-117); Anion Gap 6 (5-15); BUN 11 mg/dL (7-18); BUN/Creat Ratio 10.2 RATIO (10-20); Chloride 111 mmol/L (98-107); Cholesterol 183 mg/dL (200); Creatinine, Serum 1.08 mg/dL (0.70-1.30); EST Glomerular Filtration Rate 75 mL/min (>60); Est Glom Filt Rate - Afr Amer 90 mL/min (>60); Estimated Creatinine Clearance 86.27 ml/min; Globulin 3.1 g/dL (2.2-4.2); Glucose 98 mg/dL (74-106); High Density Lipoprotein 30 mg/dL; Protein, Total 6.6 g/dL (6.4-8.2); Sodium Level 138 mmol/L (136-145); Triglycerides 132 mg/dL; Very Low Density Lipoprotein 26 mg/dL (5-40)
--- NOTE | 2023-10-31 08:03 | PCM.PN.CARD ---
Subjective Subjective The patient denies any chest pain his right wrist is a little sore but otherwise unremarkable. His lipids checked yesterday showed a total cholesterol of 183 triglycerides 132 LDL of 127 and HDL of 30. He is intolerant of atorvastatin. He is currently on ezetimibe and fenofibrate. Given his progressive atherosclerotic disease on this therapy with an LDL of 127 we will trial an increasing statin therapy with combination coenzyme Q 10 when he is evaluated in the office in 7 to 14 days. Objective Data Vital Signs: Vital Signs Temp Pulse Resp BP Pulse Ox O2 Del Method 97.5 F L 66 12 126/79 H 96 Room Air 10/31/23 03:52 10/31/23 03:52 10/31/23 03:52 10/31/23 03:52 10/31/23 03:52 10/31/23 07:49 Oxygen Delivery Method Room Air Weight: 226 lb 13.69 oz Body Mass Index (BMI) 35.5 Intake & Output: Intake and Output for Last 24 Hours 10/29/23 10/30/23 10/31/23 23:59 23:59 23:59 Intake Total 0 / 0 2635.42 / 2635.42 1100 / 1100 Balance 0 / 0 2635.42 / 2635.42 1100 / 1100 Lab / Micro Data Attestation: I reviewed the patient's lab results. 10/31/23 06:20 10/31/23 06:20 Labs: Laboratory Results - last 24 hr 10/30/23 06:23: Sodium 141, Potassium 3.8, Chloride 111 H, Carbon Dioxide 22.0, Anion Gap 8, BUN 14, Creatinine 1.18, Estim Creat Clear Calc 78.96, Est GFR (MDRD) Af Amer 82, Est GFR (MDRD) Non-Af 68, BUN/Creatinine Ratio 11.9, Glucose 104, Calcium 9.0 10/31/23 06:20: WBC 4.3 L, RBC 4.71, Hgb 14.5, Hct 43.2, MCV 91.7, MCH 30.8, MCHC 33.6, RDW Std Deviation 45.3 H, RDW Coeff of Nely 13.4, Plt Count 223, MPV 10.0, Immature Gran % (Auto) 0.500, Neut % (Auto) 66.1, Lymph % (Auto) 20.7, [place] % (Auto) 9.9, Eos % (Auto) 2.1, Baso % (Auto) 0.7, Absolute Neuts (auto) 2.8, Absolute Lymphs (auto) 0.88, Nucleated RBC % 0, Sodium 138, Potassium 4.0, Chloride 111 H, Carbon Dioxide 21.0, Anion Gap 6, BUN 11, Creatinine 1.08, Estim Creat Clear Calc 86.27, Est GFR (MDRD) Af Amer 90, Est GFR (MDRD) Non-Af 75, BUN/Creatinine Ratio 10.2, Glucose 98, Calcium 9.0, Total Bilirubin 0.40, AST 20, ALT 30, Alkaline Phosphatase 41 L, Total Protein 6.6, Albumin 3.5, Globulin 3.1, Albumin/Globulin Ratio 1.1, Triglycerides 132, Cholesterol 183, LDL Cholesterol 127, VLDL Cholesterol 26, HDL Cholesterol 30 L Rhythm Strip Rhythm Strip: Sinus Rhythm Rate: 70 Cardiology Labs/Tests 10/30/23 06:23: Sodium 141, Potassium 3.8, Chloride 111 H, Carbon Dioxide 22.0, Anion Gap 8, BUN 14, Creatinine 1.18, Est GFR (MDRD) Af Amer 82, Est GFR (MDRD) Non-Af 68, BUN/Creatinine Ratio 11.9, Glucose 104, Calcium 9.0 10/31/23 06:20: WBC 4.3 L, RBC 4.71, Hgb 14.5, Hct 43.2, MCV 91.7, MCH 30.8, MCHC 33.6, Plt Count 223, MPV 10.0, Immature Gran % (Auto) 0.500, Neut % (Auto) 66.1, Lymph % (Auto) 20.7, [place] % (Auto) 9.9, Eos % (Auto) 2.1, Baso % (Auto) 0.7, Absolute Neuts (auto) 2.8, Nucleated RBC % 0, Sodium 138, Potassium 4.0, Chloride 111 H, Carbon Dioxide 21.0, Anion Gap 6, BUN 11, Creatinine 1.08, Est GFR (MDRD) Af Amer 90, Est GFR (MDRD) Non-Af 75, BUN/Creatinine Ratio 10.2, Glucose 98, Calcium 9.0, Total Bilirubin 0.40, Triglycerides 132, Cholesterol 183, LDL Cholesterol 127, VLDL Cholesterol 26, HDL Cholesterol 30 L Rhythm: EKG: ECHO: Stress Test: Cardiac Cath: PCI: CT Surgery: Holter monitor: EPS: PPM: CXR: Chest CT Scan: Radiography Diagnostic Testing: Radiology Impression Echocardiogram 10/30/23 05:55 Interpretation Summary The estimated ejection fraction is 65 %. No evidence for diastolic dysfunction. Ordering Physician: Lisha Green Referring Physician: COSME BERGER Performed By: Bailee Menjivar RCS Physical Exam Const alert and oriented x3 HEENT normocephalic Eyes EOMs intact bilaterally Chest inspection of chest normal Cardio regular rate and regular rhythm Extremity no pedal edema Extremity Narrative: Right wrist has a bandage in place there is mild ecchymoses no evidence of hematoma. Neuro Neuro Narrative: Alert and oriented x 3 Psych mental status grossly normal Assessment & Plan Assessment/Plan (1) Atherosclerotic heart disease [place]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: QUALIFIERS: [place] vs. transplanted heart: [place] heart Qualified Code(s): I25.119 - Atherosclerotic heart disease of [place] coronary artery with unspecified angina pectoris PLAN: The patient underwent successful stenting of the ostium of the first major diagonal branch and the mid right coronary artery in the segment between 2 previously stented areas. The patient has recovered without incident. And will be discharged to home today. The patient should follow-up in our office in 7 to 14 days. (2) Hypercholesterolemia: PLAN: Total cholesterol was 183 triglycerides 132 LDL 127 and HDL 30 on ezetimibe and fenofibrate. Given the progression of his atherosclerotic disease I would recommend that we trial him on an alternative statin. He has failed atorvastatin in the past due to myalgias. Once he is seen in the office we will discontinue the ezetimibe and fenofibrate and trial him on a combination of rosuvastatin 5 mg daily and coenzyme Q 10. Will then have fasting lipids and liver functions reevaluated in 6 weeks. PLAN: Plan Discharge to home today. Will follow-up in the office in [facility] in 7 to 14 days. At that time we will reevaluate statin therapy. Charges/Coding Visit Charges Inpatient E&M: 65437 Init Hosp L2
[2023-10-31 08:30] VITALS: BP 117/81; PULSE 57; RESP 14; TEMP 36.3; O2SAT 97
[2023-10-31] MEDS: Enoxaparin 40 MG/0.4 ML Syringe SC (08:37)
[2023-10-31 08:38] VITALS: BP 117/81; PULSE 70
[2023-10-31] MEDS: Fenofibrate 145 MG Tablet PO (08:38)
[2023-10-31] MEDS: Metoprolol Tartrate 25 MG Tablet PO (08:38)
[2023-10-31] MEDS: Ezetimibe 10 MG Tablet PO (08:38)
[2023-10-31] MEDS: Pantoprazole Sodium 20 MG Tablet PO (08:39)
[2023-10-31] MEDS: Clopidogrel Bisulfate 75 MG Tablet PO (08:39)
[2023-10-31] MEDS: Cholecalciferol (VIT D3) 25 MCG TABLET (1,000 UNITS) PO (08:39)
[2023-10-31] MEDS: Losartan Potassium 25 MG Tablet PO (08:39)
[2023-10-31] MEDS: Aspirin 81 MG TAB.CHEW PO (08:40)
[2023-10-31] MEDS: Doxycycline 100 MG CAPSULE PO (08:40)
[2023-10-31 10:00] VITALS: BP 106/67; PULSE 61; RESP 14; TEMP 36.3; O2SAT 95
--- NOTE | 2023-10-31 10:00 | EKG12_ITS ---
Test Reason : AM EKG Blood Pressure : / mmHG Vent. Rate : 061 BPM Atrial Rate : 061 BPM P-R Int : 172 ms QRS Dur : 100 ms QT Int : 428 ms P-R-T Axes : 048 014 025 degrees QTc Int : 430 ms Normal sinus rhythm Normal ECG When compared with ECG of 30-OCT-2023 13:49, MANUAL COMPARISON REQUIRED, DATA IS UNCONFIRMED Confirmed by IKE JIN, ZAK ([id number]), editor dictionary CECY CARCAMO ([id number]) on 11/05/2023 6:39:04 AM Referred By: IKE Confirmed By:JACKSON RAMIRES MD
--- NOTE | 2023-10-31 10:23 | DCINST_ITS ---
Discharge Instructions Diet Discharge Diet: No restrictions Activity Discharge Activity: Return to Normal Activity Weight Bearing Status: Full weight bearing Follow Up Care Test Results: Test results from this visit will be discussed in further detail at your follow- up appointment, if applicable. Discharge Plan Admission Admit Date/Time: 10/29/23 17:43 Primary Reason for Your Visit: Unstable angina, occlusive coronary disease Attending Provider: Colton Roberts Primary Care Provider: Mendoza Harris Consulting Providers: Kal Simeon; Lisha Green; Jose Berry Discharge Orders/Prescriptions Prescriptions: New rosuvastatin 5 mg tablet 5 mg PO DAILY Qty: 30 0RF Continued cholecalciferol (vitamin D3) 25 mcg (1,000 unit) capsule 1,000 unit PO DAILY fenofibrate 160 mg tablet 160 mg PO DAILY folic acid 400 mcg tablet 0.4 mg PO BID trazodone 150 mg tablet 75 mg PO QHS PRN (Reason: SLEEP ) doxycycline monohydrate 100 mg capsule 100 mg PO BID Rx Instructions: TAKE ONE CAPSULE BY MOUTH TWICE DAILY FOR 10 DAYS. START DATE: 10/28/23 END DATE: 11/06/23 meloxicam 15 mg tablet 15 mg PO DAILY PRN (Reason: ARTHRITIS ) omeprazole 20 mg capsule,delayed release(DR/EC) 20 mg PO DAILY losartan 25 mg tablet 25 mg PO DAILY ezetimibe 10 mg tablet 10 mg PO DAILY nitroglycerin 0.4 mg tablet, sublingual 0.4 mg sublingual DAILY PRN (Reason: CHEST PAIN ) aspirin 81 mg tablet,chewable 81 mg PO DAILY metoprolol tartrate 25 mg tablet 25 mg PO DAILY doxazosin 4 mg tablet 4 mg PO QHS Qty: 90 3RF clopidogrel 75 mg tablet 75 mg PO DAILY Qty: 90 3RF Referrals / Follow Up: Kal Simeon MD [Med Staff - Active Staff] - See Referral Note (Call his office is Thursday and inquire as to when your follow-up appointment would be) Mendoza Harris MD [Primary Care Provider] - Within 1 Month Disposition Disposition (needs filled in before D/C Order can be placed): Home, Self Care
--- NOTE | 2023-10-31 10:32 | PCM.DC.SUM ---
Providers Date of Admission: 10/29/23 Date of Discharge: 10/31/23 Primary Care Physician: Dr. Cosme Berger MD Consultations 10/29/23 19:41 Consult: Cardiology Routine Consulting Provider: Kal Simeon Reason for Consult: unstable angina EMERGENT Consult: No MD Notified: Yes Date Notified: 10/29/23 Time Notified: 19:42 Method of Notification: Verbal Reason For Visit: UNSTABLE ANGINA Diagnosis Discharge Diagnosis (1) Atherosclerotic heart disease [place]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: Status: Chronic Code(s): I25.119 - Atherosclerotic heart disease of [place] coronary artery with unspecified angina pectoris Qualifiers: [place] vs. transplanted heart: [place] heart Qualified Code(s): I25.119 - Atherosclerotic heart disease of [place] coronary artery with unspecified angina pectoris (2) Hypercholesterolemia: Status: Chronic Code(s): E78.00 - Pure hypercholesterolemia, unspecified Plan 1. Unstable angina with occlusive coronary disease #2 essential hypertension #3 hyperlipidemia Medications at Discharge Home Medications trazodone 150 mg tablet 75 mg PO QHS PRN SLEEP 05/16/19 cholecalciferol (vitamin D3) 25 mcg (1,000 unit) capsule 1,000 unit PO DAILY SUPPLEMENT 11/19/21 clopidogrel 75 mg tablet 75 mg PO DAILY BLOOD THINNER #90 tabs 01/14/23 doxazosin 4 mg tablet 4 mg PO QHS BLOOD PRESSURE #90 tabs 01/14/23 fenofibrate 160 mg tablet 160 mg PO DAILY CHOLESTEROL 06/12/23 folic acid 400 mcg tablet 0.4 mg PO BID SUPPLEMENT 06/12/23 aspirin 81 mg chewable tablet 81 mg PO DAILY HEART HEALTH 10/29/23 doxycycline monohydrate 100 mg capsule 100 mg PO BID ANTIBIOTIC 10/29/23 ezetimibe 10 mg tablet 10 mg PO DAILY CHOLESTEROL 10/29/23 losartan 25 mg tablet 25 mg PO DAILY BLOOD PRESSURE 10/29/23 meloxicam 15 mg tablet 15 mg PO DAILY PRN ARTHRITIS 10/29/23 metoprolol tartrate 25 mg tablet 25 mg PO DAILY BLOOD PRESSURE 10/29/23 nitroglycerin 0.4 mg sublingual tablet 0.4 mg sublingual DAILY PRN CHEST PAIN 10/29/23 omeprazole 20 mg capsule,delayed release 20 mg PO DAILY ACID REFLUX 10/29/23 rosuvastatin 5 mg tablet 5 mg PO DAILY #30 tabs 10/31/23 Hospital Course Operations None Procedures Cardiac catheterization (With FLORY in the right coronary artery and ostium of the first major diagonal branch) Summary of Care Provided Minutes Spent on Discharge: 31 Hospital Course: This 58-year-old white male with a previous history of coronary artery disease presented to the emergency room at [facility] with complaints of chest pain which had been ongoing for several days. This chest pain appeared to be related to exertion. Workup in the emergency room included labs which showed a normal white blood cell count, hemoglobin was 15.5, creatinine was 1.49, troponins were negative. Patient was admitted to PCU, echocardiogram was obtained and patient was seen in consultation by cardiology, cardiology recommended proceeding with a cardiac catheterization. Patient's echocardiogram showed normal ejection fraction. Patient underwent a cardiac catheterization with insertion of 2 FLORY-1 in the right coronary artery and the other in the ostium of the first major diagonal branch of the LAD. Patient had no complications from the procedure and did well postprocedure. On 10/31/2023, patient was seen and examined: On examination he appeared in good health and spirits. Vital signs as documented. Skin warm and dry and without overt rashes. Neck without JVD, neck was supple, trachea midline, thyroid was normal. Lungs clear bilaterally, normal air movement was noted. Heart exam notable for regular rhythm, normal sounds and absence of murmurs, rubs or gallops. Abdomen unremarkable and without evidence of organomegaly, masses, or abdominal aortic enlargement. Bowel sounds are present, abdomen is not distended. Extremities nonedematous, no cyanosis was noted, no clubbing was noted. Neuro: Cranial nerves II through XII are grossly intact, no focal motor deficits were noted, sensation to light touch and pinprick intact, motor exam 5/5 throughout. Psych: Patient is alert and oriented x3, he does not appear anxious or depressed, he does not appear agitated. Patient was discharged home in stable condition on 10/31/2023, patient agreed to take a small dose of Crestor, he was given a prescription for Crestor 5 mg 1 daily. Weight / BMI Weight Weight: 102.9 kg Body Mass Index (BMI) 35.5 ABG / Lab / Microbiology Data 10/31/23 06:20 10/31/23 06:20 Laboratory: Laboratory Results - last 24 hr 10/31/23 06:20: WBC 4.3 L, RBC 4.71, Hgb 14.5, Hct 43.2, MCV 91.7, MCH 30.8, MCHC 33.6, RDW Std Deviation 45.3 H, RDW Coeff of Nely 13.4, Plt Count 223, MPV 10.0, Immature Gran % (Auto) 0.500, Neut % (Auto) 66.1, Lymph % (Auto) 20.7, [place] % (Auto) 9.9, Eos % (Auto) 2.1, Baso % (Auto) 0.7, Absolute Neuts (auto) 2.8, Absolute Lymphs (auto) 0.88, Nucleated RBC % 0, Sodium 138, Potassium 4.0, Chloride 111 H, Carbon Dioxide 21.0, Anion Gap 6, BUN 11, Creatinine 1.08, Estim Creat Clear Calc 86.27, Est GFR (MDRD) Af Amer 90, Est GFR (MDRD) Non-Af 75, BUN/Creatinine Ratio 10.2, Glucose 98, Calcium 9.0, Total Bilirubin 0.40, AST 20, ALT 30, Alkaline Phosphatase 41 L, Total Protein 6.6, Albumin 3.5, Globulin 3.1, Albumin/Globulin Ratio 1.1, Triglycerides 132, Cholesterol 183, LDL Cholesterol 127, VLDL Cholesterol 26, HDL Cholesterol 30 L Radiography Diagnostic Testing: Radiology Impression Echocardiogram 10/30/23 05:55 Interpretation Summary The estimated ejection fraction is 65 %. No evidence for diastolic dysfunction. Ordering Physician: Lisha Green Referring Physician: COSME BERGER Performed By: Bailee Menjivar RCS D/C Instructions Discharge Diet: No restrictions Weight Bearing Status: Full weight bearing Meaningful Use Info Meaningful Use Meaningful Use Diagnoses (Choose all that apply): None applicable Ischemic Stroke Statin Dosing Therapy Reference: STATIN DOSE THERAPY REFERENCE: * Patients > 75 years receive moderate or high dose statin therapy. * Patients 75 years or YOUNGER should receive HIGH intensity statin dose unless contraindicated. You will be required to document reason for non-treatment if statin daily dose does not meet guidelines. HIGH DOSE STATIN THERAPY DAILY Atorvastatin > than or = to 40 mg Rosuvastatin > than or = to 20 mg Amlodipine + Atorvastatin > than or = to 2.5/40 mg Ezetimibe + Simvastatin 10/80 mg Simvastatin 80mg Discharge Plan Admission Admit Date/Time: 10/29/23 17:43 Primary Reason for Your Visit: Unstable angina, occlusive coronary disease Attending Provider: Colton Roberts Primary Care Provider: Cosme Berger Consulting Providers: Kal Simeon; Lisha Green; Jose Berry Discharge Orders/Prescriptions Prescriptions: New rosuvastatin 5 mg tablet 5 mg PO DAILY Qty: 30 0RF Continued cholecalciferol (vitamin D3) 25 mcg (1,000 unit) capsule 1,000 unit PO DAILY fenofibrate 160 mg tablet 160 mg PO DAILY folic acid 400 mcg tablet 0.4 mg PO BID trazodone 150 mg tablet 75 mg PO QHS PRN (Reason: SLEEP ) doxycycline monohydrate 100 mg capsule 100 mg PO BID Rx Instructions: TAKE ONE CAPSULE BY MOUTH TWICE DAILY FOR 10 DAYS. START DATE: 10/28/23 END DATE: 11/06/23 meloxicam 15 mg tablet 15 mg PO DAILY PRN (Reason: ARTHRITIS ) omeprazole 20 mg capsule,delayed release(DR/EC) 20 mg PO DAILY losartan 25 mg tablet 25 mg PO DAILY ezetimibe 10 mg tablet 10 mg PO DAILY nitroglycerin 0.4 mg tablet, sublingual 0.4 mg sublingual DAILY PRN (Reason: CHEST PAIN ) aspirin 81 mg tablet,chewable 81 mg PO DAILY metoprolol tartrate 25 mg tablet 25 mg PO DAILY doxazosin 4 mg tablet 4 mg PO QHS Qty: 90 3RF clopidogrel 75 mg tablet 75 mg PO DAILY Qty: 90 3RF Referrals / Follow Up: Kal Simeon MD [Med Staff - Active Staff] - See Referral Note (Call his office is Thursday and inquire as to when your follow-up appointment would be) Cosme Berger MD [Primary Care Provider] - Within 1 Month Disposition Disposition (needs filled in before D/C Order can be placed): Home, Self Care Charges/Coding Visit Charges Inpatient E&M: 19834 Disch Hosp >30min
--- NOTE | 2023-10-31 12:29 | CL.I_ITS ---
Patient Name: ARYAN HUFFMAN Study Date: 10/30/2023 Performing: Abdirashid Moya MD Ht: 67 inches 170.18 cm : 1965 Wt: 226.86 lbs 102.9 kg Age: 58 Gender: male BSA: 2.13 PROCEDURE(S) PERFORMED DC02-(44916)LHC/COR IC12-(07251/C9600)FLORY W/WO PTCA, SINGLE CORONARY ARTERY IC12-(16898/C9600)FLORY W/WO PTCA, SINGLE CORONARY ARTERY CLINICAL PROFILE AND CO-MORBIDITIES Indications: Worsening Angina Heart Failure: None CAD Presentations: Unstable angina. CONCLUSIONS CAD as described. Successful FLORY to ostial diagonal 1 and mid RCA RECOMMENDATIONS DESCRIPTION OF PROCEDURE The patient arrived to the procedure lab. The risks and benefits of the procedure as well as a full description of our services here and lack of surgical backup were fully explained to the patient and/or their significant other prior to the catheterization. The Timeout was completed, verifying the correct patient and procedure. The patient's procedural site was prepped and draped in the usual fashion. Local anesthetic was given subcutaneously to right radial region with Lidocaine 2%. Using a modified Seldinger technique, arterial access was obtained via the right radial artery, a 6Fr sheath was inserted.. Left Coronary Artery selective angiography was performed in multiple views using a 5 Fr. JL3.5 catheter. Right Coronary Artery selective angiography was then performed in multiple views using a 5 Fr. JR 4 catheter. Left Coronary Artery selective angiography was performed in multiple views using a 6 Fr.xb3The images were reviewed and options discussed. A decision was then made to proceed with an Intervention, IVUS or other adjunct procedure. xb3 Guide catheter was inserted and engaged into the LCA. bmw Guide wire was advanced to the Diagonal. emerge 1.5 x 15 Drug Eluting stent was advanced across the lesion in the first diagonal, ostial. PTCA balloon inflated at 12 atms for 10 secs. PTCA balloon inflated at 12 atms for 9 secs. Angiogram performed post balloon dilatation. emerg 2.00 x 12 Balloon catheter was advanced across lesion in the first diagonal, ostial. PTCA balloon inflated at 8 atms for 11 secs. PTCA balloon inflated at 8 atms for 8 secs. PTCA balloon inflated at 10 atms for 7 secs. Angiogram performed post balloon dilatation. frontier 2.25 x 18 Drug Eluting stent was advanced across the lesion in the first diagonal, ostial. Angiogram performed post stent deployment. jr4 Guide catheter was inserted and engaged into the RCA. bmw Guide wire was advanced to the RCA. emerge 2.5 x 12 Balloon catheter was advanced across lesion in the right coronary, mid. PTCA balloon inflated at 13 atms for 18 secs. Angiogram performed post balloon dilatation. nc euphora 3.0 x 12 Balloon catheter was advanced across lesion in the right coronary, mid. PTCA balloon inflated at 20 atms for 34 secs. PTCA balloon inflated at 20 atms for 11 secs. desean 3.0 x12 Balloon catheter was advanced across lesion in the right coronary, mid. Angiogram performed post stent deployment. xb3 Guide catheter was inserted and engaged into the LCA. The arterial sheath was pulled and a TR Band was applied for hemostasis CORONARY ANGIOGRAPHY DOMINANCE: Right Dominant LEFT MAIN: 30 % distal stenosis LEFT ANTERIOR DESCENDING ARTERY: Mild luminal irregularities, Previously placed stent is patent DIAGONAL 1: Ostial - 99 % Stenosis CIRCUMFLEX ARTERY: Mild luminal irregularities OM 1: Proximal - 20-30 % Stenosis RIGHT CORONARY ARTERY: MID RCA: 80 % instent restenosis INTERVENTION INFORMATION LESION SITE: Diagonal (Ostial) Lesion Complexity: High/C, chronic total occlusion: No, lesion at bifurcation: Yes, thrombus present: No, lesion length: 12 mm, culprit lesion: Yes, Previously treated lesion: No Pre Stenosis: 99 % Pre intervention PRIMO flow: 2 PROCEDURE: Drug Eluting Stent with pre dilatation. Post Stenosis: 0 % Post intervention PRIMO flow: 3 Lesion Devices: Cordis 6 Fr XB3.0 100cm Guide Catheter Carl .[id number] 190cm BMW Joy Straight Gautam Sci EMERGE MR 1.50x15 BALLOON Gautam Sci EMERGE MR 2.00x12 BALLOON Medtronic 2.25 x 18 DESEAN FRONTIER FLORY LESION SITE: RCA (Mid) Lesion Complexity: High/C, chronic total occlusion: No, lesion at bifurcation: No, thrombus present: No, lesion length: 11 mm, culprit lesion: Yes, Previously treated lesion: Yes, Timeframe of previous treatment: >2 years, Previously treated with a stent: Yes Stent Type: with stent type unknown, In-stent Thrombosis: No, In-stent restenosis: Yes Pre Stenosis: 80 % Pre intervention PRIMO flow: 3 PROCEDURE: Drug Eluting Stent with pre dilatation. Post Stenosis: 0 % Post intervention PRIMO flow: 3 Lesion Devices: Carl .014 190cm BMW Joy Straight Cordis 6 Fr JR4 100cm Guide Catheter Gautam Sci EMERGE MR 2.50x12 BALLOON Medtronic NC EUPHORA RX 3.0x12 BALLOON Medtronic 3.0 x 12 DESEAN FRONTIER FLORY COMPLICATIONS No Complications PROCEDURE MEDICATIONS Versed 1 mg IV Fentanyl 50 mcg IV Fentanyl 50 mcg IV Fentanyl 25 mcg IV Oxygen: 2 L/min via nasal cannula Heparin 6000 unit(s) IV 10/30/2023 11:52:06 Nitro 200 mcg IC 10/30/2023 12:02:42 SUMMARY OF HEMODYNAMIC DATA Time AIR REST ECG 11:10:47 AO 113/72 (89) SA 11:33:10 Signed By Abdirashid Moya MD On 11/03/2023 08:15:42 Abdirashid Moya MD
== END 2023-10-31 11:24 | disposition home or self-care (01) | DRG 322 ==
LOC: ED 17:47 → PCU 17:58
PROVIDERS: Family Medicine; Nurse Practitioner; Admitting Provider Student in an Organized Health Care Education/Training Program; Emergency Provider Emergency Medicine; PCP Family Medicine; Visit Provider Internal Medicine
DX: I25.110 Atherosclerotic heart disease of native coronary artery with unstable angina pectoris (principal); E78.00 Pure hypercholesterolemia, unspecified; I10 Essential (primary) hypertension; K21.9 Gastro-esophageal reflux disease without esophagitis; I25.2 Old myocardial infarction; N40.0 Benign prostatic hyperplasia without lower urinary tract symptoms; Z95.5 Presence of coronary angioplasty implant and graft; Z79.02 Long term (current) use of antithrombotics/antiplatelets; Z79.82 Long term (current) use of aspirin; Z79.899 Other long term (current) drug therapy; Z82.49 Family history of ischemic heart disease and other diseases of the circulatory system
CPT/HCPCS: 36415; 71045; 71275; 80048; 80053; 80061; 83880; 84484; 85025; 92928; 93005; 93306; 93454; 99152; 99153; 99285; J7030; J7040; Q9967; A4216; C1725; C1769; C1874; C1887; C1894; C9600

== ENCOUNTER → 2024-01-11 | Outpatient (CLI) | payer MEDICARE, SELFPAY ==
[2016-11-25 13:03] VITALS: BMI 32.7
[2024-01-11 16:53] LABS: PSA,Total - Annual Screen 5.55 ng/mL (0.00-4.00)
== END | disposition home or self-care (01) ==
LOC: LAB 15:00
PROVIDERS: PCP Family Medicine; Referring Provider Urology; Visit Provider Urology
DX: Z12.5 Encounter for screening for malignant neoplasm of prostate (principal)
CPT/HCPCS: 36415; 84153; G0103

== ENCOUNTER → 2024-07-14 | Outpatient (CLI) | payer OTHER, SELFPAY ==
[2016-11-25 13:03] VITALS: BMI 32.7
[2024-07-14 09:25] LABS: PSA,Total- Diagnostic 3.06 ng/mL (0.0-4.0)
== END | disposition home or self-care (01) ==
LOC: LAB 08:24
PROVIDERS: PCP Family Medicine; Referring Provider Nurse Practitioner; Visit Provider Nurse Practitioner
DX: R97.20 Elevated prostate specific antigen [PSA] (principal)
CPT/HCPCS: 36415; 84153

== ENCOUNTER 2024-10-11 08:27 | Emergency (ER) | payer MEDICARE, SELFPAY ==
[2016-11-25 13:03] VITALS: BMI 32.7
[2024-10-11 08:28] VITALS: BP 150/102; PULSE 89; RESP 14; TEMP 36.6; O2SAT 98
--- NOTE | 2024-10-11 08:34 | EX.ED.GENINJ ---
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 Hypercholesterolemia Non-STEMI (non-ST elevated myocardial infarction) Home Medications ?Medication ?Instructions ?Recorded ?Last Taken ?Type fenofibrate 160 mg tablet 160 mg PO DAILY CHOLESTEROL 06/12/23 10/11/24 History aspirin 81 mg chewable tablet 81 mg PO DAILY HEART HEALTH 10/29/23 10/11/24 History nitroglycerin 0.4 mg sublingual 0.4 mg sublingual DAILY PRN CHEST 10/29/23 Unknown History tablet PAIN clopidogrel 75 mg tablet 75 mg PO DAILY #90 TABLETS 01/18/24 10/11/24 Rx doxazosin 4 mg tablet 4 mg PO QHS #90 TABLETS 01/18/24 10/10/24 Rx ezetimibe 10 mg tablet 10 mg PO DAILY #90 TABLETS 05/16/24 10/11/24 Rx artificial tears(hypromellose) 0.3 1 drp EACH EYE BID PRN dry eye(s) 10/11/24 Unknown History % eye drops cholecalciferol (vitamin D3) 50 50 mcg PO QODAY 10/11/24 10/10/24 History mcg (2,000 unit) capsule finasteride 5 mg tablet 5 mg PO DAILY 10/11/24 10/11/24 History folic acid 800 mcg tablet 800 mcg PO QHS 10/11/24 10/11/24 History losartan 25 mg tablet 25 mg PO DAILY 10/11/24 Unknown History Held on 10/11/24. Instructions: PT BP HAS BEEN LOW, SO PT HASNT BEEN TAKING mecobalamin (vitamin B12) 500 mcg 500 mcg PO DAILY 10/11/24 Unknown History chewable tablet methocarbamol 500 mg tablet 500 mg PO TID PRN back pain 3 days 10/11/24 Unknown Rx #10 tabs omeprazole 20 mg capsule,delayed 20 mg PO DAILY 10/11/24 10/11/24 History release oxycodone 5 mg tablet 5 mg PO Q6H PRN pain 3 days #12 10/11/24 Unknown Rx tabs prednisone 20 mg tablet 20 mg PO DAILY #20 tabs 10/11/24 Unknown Rx Allergy/AdvReac Type Severity Reaction Status Date / Time atorvastatin (From Lipitor) AdvReac Severe mylagias Verified 12/18/23 08:51 evolocumab (From Repatha AdvReac Severe Blurred Verified 12/18/23 08:51 SureClick) vision metoprolol AdvReac Severe Rash Verified 12/18/23 08:51 hydrocodone bitartrate (From AdvReac Intermediate Itching Verified 12/18/23 08:51 Vicodin) pravastatin AdvReac GI upset Verified 12/18/23 08:51 and sore mouth Family History Mother , age 64 CAD (coronary artery disease) Rheumatic fever Brother CAD (coronary artery disease) Surgical History History of colonoscopy (~10/2019) Hx of abdominal surgery (~10/2019) Hx of hand surgery History of coronary artery stent placement (11/03/23) Social History Smoking Status: Never smoker alcohol intake: current alcohol intake frequency: a few times a month substance use type: does not use caffeine: Yes Type: coffee Number of servings: 1 EXAM Physical Exam Const Vital Signs: 10/11/24 08:28 10/11/24 09:10 10/11/24 10:28 Temperature 98 F Temperature Source Temporal Pulse Rate 89 Respiratory Rate 14 18 Blood Pressure 150/102 H Blood Pressure Mean 118 Pulse Ox 98 Oxygen Delivery Method Room Air Room Air 10/11/24 11:44 10/11/24 11:47 Temperature 98 F 98 F Temperature Source Pulse Rate 89 78 Respiratory Rate 18 18 Blood Pressure 150/102 H 124/70 H Blood Pressure Mean 118 88 Pulse Ox 98 99 Oxygen Delivery Method MDM MDM MDM Narrative Medical decision making narrative: HISTORY OF PRESENT ILLNESS: Chief complaint: Back pain 59-year-old male history of hypertension, CAD, hyperlipidemia presents concern for acute on chronic low notes he always has back pain. Back pain. Notes acute worsening onset of left-sided low back pain radiates down the left leg. Started 3 days ago. Denies fever. Denies bowel symptoms. No falls or trauma noted. Denies chest pain shortness of breath but does note dizziness and nausea. He notes his blood pressure has been running low at home. Denies chest pain. notes he discontinued his losartan. He notices blood pressure has been improved since this intervention. The patient notes he has significant past cardiac history. Patient denies any saddle anesthesia, urinary retention, bowel or bladder incontinence, lower extremity weakness, fever or IV drug use, no recent spinal manipulation or surgery, no recent urinary catheterization. REVIEW OF SYSTEMS: Pain Pertinent positives: Back pain Pertinent negatives: PHYSICAL EXAM: Nursing triage notes reviewed, Vital signs reviewed Constitutional: please see [facility] HENT: MMM Eyes: Pupils equal round and reactive to light, Extraocular muscles intact Neck: No stridor, no JVD, full neck ROM Lungs: Clear to auscultation, No wheezing or rales. No increased work of breathing, no conversational dyspnea, no accessory muscle use, no nasal flaring. No respiratory distress noted Heart: Regular rate and rhythm, No murmurs, No rubs and No gallops, 2+ distal pulses (radial, femoral, posterior tibial) in all extremities Abdomen: Soft, there is no tenderness, rigidity, rebound or guarding, no obvious peritoneal signs, no palpable pulsatile abdominal masses, no auscultated abdominal bruit : No CVAT Extremities: No edema Neuro: No new focal neurological deficits, cranial nerves II through XII intact, 5/5 strength in all present extremities. Intact sensation to light touch in all present extremities, 2+ reflexes bilateral patella tendons. Skin: No rash or lesions noted MEDICAL DECISION MAKING: Chief Complaint: please see HPI External records reviewed: Reviewed prior imaging: No advanced imaging the back noted. Reviewed prior cardiovascular outpatient note. At this time there is noted coronary artery disease with 3 drug-eluting stents to the RCA back in 2017. He is also noted to have retrograde dissection of the proximal portion of the aorta. Factors affecting care: Chronic back pain Social determinants of health: denies IV drug use History obtained from others: none Consults: none [facility] Narrative: The patient was initially hemodynamically stable, afebrile and nontoxic-appearing. Exam consistent with likely lumbar radiculopathy/sciatica however given the patient's significant cardiovascular history report of dizziness and nausea we will also obtain a workup to rule out arrhythmia, anemia, myocardial ischemia or electrolyte disturbances I considered the following differential diagnosis: Acute on chronic back pain, AAA, space-occupying lesion of the spine (epidural abscess, conus medullaris, cauda equina), ACS, etc. The patient's history and physical exam were most consistent with lumbar radiculopathy. Initially treated the patient with IV morphine, IV Toradol, muscle relaxers, steroids for empiric lumbar radiculopathy treatment. ALL IMAGES (IF OBTAINED) HAVE BEEN PERSONALLY REVIEWED AND INTERPRETED BY MYSELF. EKG with normal sinus rhythm rate 86, normal axis, no intervals, no STEMI I have personally reviewed the patient's chest x-ray. Chest x-ray is unremarkable for pulmonary edema, pneumothorax, pneumonia or focal cardiopulmonary abnormality. CBC without leukocytosis, severe anemia, no thrombocytopenia. BMP without evidence of significant electrolyte abnormalities, no anion gap, no acute kidney injury. High-sensitivity troponin is negative, no evidence of myocardial ischemia There is no clinical exam evidence of aortic dissection. The status of the patient's history, physical exam, labs image suggest likely acute on chronic back pain secondary to lumbar radiculopathy. No sign of myocardial ischemia, low suspicion for ACS, anemia or electrolyte disturbance. No sign of pericarditis, pneumothorax or pneumonia. The patient is appropriate for discharge home with outpatient anti-inflammatories, narcotics and muscle relaxers. Will give spine follow-up. The patient and/or family, caregivers express understanding. The patient and/or family, caregivers agrees with the plan. Shared decision making: I will have a discussion with the patient and or visitors regarding risk/benefits of further testing or admission. They will be made aware of of the risk/benefits inherent in this decision they will be given the opportunity to voice understanding. Total critical care time today provided was at least 0 minutes. This excludes separately billable procedures. Critical care time (if documented) is secondary to the patient having high probability of clinically significant/life threatening deterioration in the patient's condition which required my urgent intervention. Impression: 1. Acute on chronic back pain 2. Nausea Dispo: Discharge home This note was generated with [employer] dictation software. It may contain incorrect words, spelling, and punctuation that were not noted in review of the chart prior to signing. Lab Data Labs: Laboratory Results - last 24 hr 10/11/24 09:10 WBC 5.2 RBC 5.44 Hgb 17.1 H Hct 48.2 MCV 88.6 MCH 31.4 MCHC 35.5 RDW Std Deviation 43.6 RDW Coeff of Nely 13.5 Plt Count 267 MPV 9.7 Immature Gran % (Auto) 0.400 Neut % (Auto) 65.1 Lymph % (Auto) 23.4 [place] % (Auto) 8.4 Eos % (Auto) 1.7 Baso % (Auto) 1.0 Absolute Neuts (auto) 3.4 Absolute Lymphs (auto) 1.22 Nucleated RBC % 0 Sodium 138 Potassium 4.2 Chloride 104 Carbon Dioxide 21.8 Anion Gap 13 BUN 14 Creatinine 1.29 H Estim Creat Clear Calc 72.48 Est GFR (MDRD) Non-Af 64 BUN/Creatinine Ratio 11.1 Glucose 130 H Calcium 10.2 Troponin T High Sens 11 Radiography Diagnostic Testing: Clinical Impression(s) from Imaging Studies Chest X-Ray 10/11/24 09:25 IMPRESSION: 1. No visible acute cardiopulmonary findings 2. Additional description as above. Reading Location: [id number] Discharge Plan Triage Chief Complaint: Back ED Provider: Flaquito Huerta Dx/Rx/DC Orders Instructions: ED Sciatica Prescriptions: New prednisone 20 mg tablet 20 mg PO DAILY Qty: 20 0RF oxycodone 5 mg tablet 5 mg PO Q6H PRN (Reason: pain) 3 Days Qty: 12 0RF methocarbamol 500 mg tablet 500 mg PO TID PRN (Reason: back pain) 3 Days Qty: 10 0RF No Action fenofibrate 160 mg tablet 160 mg PO DAILY finasteride 5 mg tablet 5 mg PO DAILY losartan 25 mg tablet 25 mg PO DAILY omeprazole 20 mg capsule,delayed release(DR/EC) 20 mg PO DAILY artificial tears(hypromellose) 0.3 % drops 1 drp EACH EYE BID PRN (Reason: dry eye(s)) cholecalciferol (vitamin D3) 50 mcg (2,000 unit) capsule 50 mcg PO QODAY Rx Instructions: pt takes at night mecobalamin (vitamin B12) 500 mcg tablet,chewable 500 mcg PO DAILY folic acid 800 mcg tablet 800 mcg PO QHS nitroglycerin 0.4 mg tablet, sublingual 0.4 mg sublingual DAILY PRN (Reason: CHEST PAIN ) aspirin 81 mg tablet,chewable 81 mg PO DAILY doxazosin 4 mg tablet 4 mg PO QHS Qty: 90 3RF clopidogrel 75 mg tablet 75 mg PO DAILY Qty: 90 3RF ezetimibe 10 mg tablet 10 mg PO DAILY Qty: 90 3RF Primary Care Provider: Mendoza Harris Referrals: Bowen Nagel MD [Med Staff - Active Staff] - Activity Restrictions/Additional Instructions: Thank you for trusting us with your care today! Your workup on your heart was reassuring. Your back pain is consistent with lumbar radiculopathy. Please take Tylenol (2 pills, 650 mg), ibuprofen (2 pills, 400 mg) every 6 hours as needed for pain and fever control. Please take prednisone as prescribed Please take Robaxin as prescribed Please go to local pharmacy or drugstore obtain Salonpas lidocaine patches apply these to the painful area For breakthrough pain please take oxycodone Please return to the emergency department if your symptoms change or worsen. Please follow with your primary care physician for further outpatient evaluation and management. Print Language: Thai Disposition Disposition: Home, Self Care Discharge Date/Time: 10/11/24 11:47
--- NOTE | 2024-10-11 08:52 | EKG12_ITS ---
Test Reason : BACK PAIN Blood Pressure : */* mmHG Vent. Rate : 86 BPM Atrial Rate : 86 BPM P-R Int : 148 ms QRS Dur : 90 ms QT Int : 356 ms P-R-T Axes : 25 11 33 degrees QTcB Int : 426 ms Normal sinus rhythm Normal ECG Confirmed by Kal Simeon ([id number]), staff editor MAHOGANY MONTOYA ([id number]) on 10/14/2024 12:03:21 PM Referred By: TA Confirmed By: Kal Simeon
[2024-10-11 09:06] VITALS: BMI 36.6
[2024-10-11] MEDS: Morphine 4 MG/ML Syringe IV (09:11)
[2024-10-11] MEDS: Aspirin 81 MG TAB.CHEW 324 MG PO (09:11)
[2024-10-11] MEDS: Ketorolac 15 MG/ML Vial IV (09:13)
[2024-10-11] MEDS: Ondansetron 4 MG/2 ML Vial IV (09:14)
[2024-10-11] MEDS: Orphenadrine 60 MG/2 ML Ampul IV (09:16)
[2024-10-11] MEDS: dexAMETHasone 4 MG/ML Vial IV (09:17)
[2024-10-11 09:24] LABS: Absolute Lymphocyte Count 1.22 X10^3/uL (0.83-4.51); Absolute Neutrophil Count 3.4 X10^3/uL (2.0-7.7); Basophil# 0.05 X10^3/uL; Eosinophil# 0.09 X10^3/uL; Eosinophils% 1.7 % (0-5); Hematocrit 48.2 % (40-54); Hemoglobin 17.1 g/dL (13.0-16.5); Lymphocyte # 1.22 X10^3/ul (0.83-4.51); Lymphocyte % 23.4 % (19-41); Mean Corp Hgb Conc 35.5 g/dL (32-36); Mean Corpuscular Hgb 31.4 pg (27.0-32.0); Mean Corpuscular Volume 88.6 fL (80-94); Mean Platelet Vol. 9.7 fl (6.2-12.0); Monocyte# 0.44 X10^3/uL; Monocyte% 8.4 % (0-10); NRBC Flagged by Analyzer 0 % (0-5); Neutrophil # 3.39 X10^3/uL (2.7-7.7); Neutrophil % 65.1 % (47-70); Platelet Count 267 K/mm3 (150-450); RBC Distribution Width CV 13.5 % (11.6-14.6); RBC Distribution Width SD 43.6 fl (35.1-43.9); Red Blood Count 5.44 M/mm3 (4.6-6.2); White Blood Count 5.2 K/mm3 (4.4-11.0)
--- NOTE | 2024-10-11 09:25 | RAD_ITS ---
PROCEDURE: CHEST 1 VIEW (PORTABLE), 10/11/2024 REASON FOR EXAM: CHEST PAIN TECHNIQUE: A single portable AP view of the chest was obtained. COMPARISON: 10/29/2023 FINDINGS: Heart: Coronary stent. Mediastinum: Unremarkable. Lungs/pleura: No focal consolidation. No sizeable pleural effusion or visible pneumothorax. Bones: Unremarkable. Lines and support devices: None. Other: None. RAD/Chest 1 View (Portable) IMPRESSION: 1. No visible acute cardiopulmonary findings 2. Additional description as above. Reading Location: [id number]
[2024-10-11 10:18] LABS: Anion Gap 13 (5-15); BUN 14 mg/dL (4-19); BUN/Creat Ratio 11.1 RATIO (10-20); Calcium,Total 10.2 mg/dL (7.6-11.0); Carbon Dioxide 21.8 mmol/L (21.0-32.0); Chloride 104 mmol/L (98-108); Creatinine, Serum 1.29 mg/dL (0.70-1.20); EST Glomerular Filtration Rate 64 (>60); Estimated Creatinine Clearance 72.48 ml/min (50-250); Glucose 130 mg/dL (70-99); Potassium 4.2 mmol/L (3.3-5.1); Sodium Level 138 mmol/L (133-145); Troponin T High Sensitivity 11 ng/L (<=22)
[2024-10-11 10:28] VITALS: RESP 18
[2024-10-11 11:44] VITALS: BP 150/102; PULSE 89; RESP 18; TEMP 36.6; O2SAT 98
[2024-10-11 11:47] VITALS: BP 124/70; PULSE 78; RESP 18; TEMP 36.6; O2SAT 99
== END 2024-10-11 11:47 | disposition home or self-care (01) ==
PROVIDERS: Emergency Provider Emergency Medicine; PCP Family Medicine; Visit Provider Emergency Medicine
DX: M54.50 Low back pain, unspecified (principal); G89.29 Other chronic pain; R11.0 Nausea; R42 Dizziness and giddiness; I25.10 Atherosclerotic heart disease of native coronary artery without angina pectoris; I25.2 Old myocardial infarction; I10 Essential (primary) hypertension; Z95.5 Presence of coronary angioplasty implant and graft; Z79.02 Long term (current) use of antithrombotics/antiplatelets; Z79.82 Long term (current) use of aspirin; Z79.899 Other long term (current) drug therapy
CPT/HCPCS: 71045; 80048; 84484; 85025; 93005; 96374; 96375; 99284; A4216; J2405

== ENCOUNTER → 2024-11-26 | Outpatient (CLI) | payer MEDICARE, SELFPAY ==
[2016-11-25 13:03] VITALS: BMI 32.7
--- OUTSIDE RECORDS SUMMARY | 2024-11-26 10:51 | XMS RPT_ITS | CCD ---
Author Organization [facility] Care Team Providers Care Content Curator Name Role Phone FRANCISCO, AIDAN A Unavailable Unavailable FRANCISCO, AIDAN A Unavailable Unavailable FRANCISCO, AIDAN A Unavailable Unavailable FRANCISCO, AIDAN A Unavailable Unavailable FRANCISCO, AIDAN A Unavailable Unavailable FRANCISCO, AIDAN A Unavailable Unavailable MEZA, ANANTHA Unavailable Unavailable FRANCISCO, AIDAN A Unavailable Unavailable MEZA, ANANTHA Unavailable Unavailable MEZA, ANANTHA Unavailable Unavailable Dr. Cosme Berger Primary Care Provider Dr. Cosme Berger Referring Provider [facility] NUTRITIONAL HEALTH COACH, NUTRITIONAL HEALTH COACH-Aashish Trent Attending Provider [phone] AB JIN, COSME Flood Primary Care Physician [phone] PACHECO JIN, CONSTANTINO Austin Attending Unavail marge BERGER MD, COSME Flood Primary Care Unavailab madi BERGER MD, COSME Flood Primary Care Unavailab madi BERGMAN MD, CONSTANTINO Austin Attending Unavail marge BERGER MD, COSME Flood Primary Care Unavailab CONSTANTINO Lopes MD Attending Unavail marge BERGMAN MD, CONSTANTINO Austin Attending Unavail marge BERGER MD, COSME Flood Primary Care Unavailab madi BERGER MD, COSEM Flood Primary Care Unavailab madi BERGMAN MD, CONSTANTINO Austin Attending Unavail Dr. Cosme Adam MD Primary Care Provider Jamia Summers Attending Provider Jamia Summers Referring Provider Dr. Flaquito Huerta DO Attending Provider Dr. Flaquito Huerta DO Emergency Provider Dr. Cosme Berger MD Referring Provider Angie Hilliard Attending Provider [phone] Paola Funk Attending Provider Dr. Juma Hamilton MD Attending Provider [phone] Jamia Summers Attending Unavailable Jamia Summers Referring Unavailable Ab, Cosme Primary Care Unavailable Flaquito Huerta Attending Unavailable Ab, Cosme Primary Care Unavailable Angie Hilliard Attending Unavail able Ab, Cosme Referring Unavailable Ab, Cosme Primary Care Unavailable Paola Gould Attending Unavailable Ab, Cosme Referring Unavailable Ab, Cosme Primary Care Unavailable Juma Hamilton Attending Unavailable Ab, Cosme Primary Care Unavailable Angie Hilliard Attending Unavail able Ab, Cosme Primary Care Unavailable Ab, Cosme Referring Unavailable Ab, Cosme Primary Care Unavailable Ab, Cosme Referring Unavailable Olayinka French NP Attending Unavailable Ab, Cosme Primary Care Unavailable NadeenAmos Attending Unavailable NadeenAmos Referring Unavailable Allergies Allergy Classification Reported Allergen(s) Allergy Type Date of Onset Reaction(s) Facility (1 source) acetaminophen / HYDROcodone; Translations: [HYDROCODONE-ACET AMINOPHEN] Drug Allergy 7 [facility] (6 sources) atorvastatin Drug Allergy 2 mylagias [facility] (6 sources) evolocumab; Translations: [evolocumab] Drug Allergy 2 headache, flu-like symptoms, arthritic pain, Blurred vision [facility] (7 sources) HYDROcodone; Translations: [hydrocodone bitartrate] Drug Allergy 2 Itching [facility] (9 sources) Pravastatin; Translations: [pravastatin] Drug Allergy 2 Adverse reaction to drug (disorder) [facility] (3 sources) Acetaminophen / HYDROcodone; Translations: [acetaminophen-hy drocodone] Drug Allergy [facility] (3 sources) celecoxib; Translations: [celecoxib] Drug Allergy Adverse reaction to drug (disorder) [facility] (3 sources) cloNIDine; Translations: [clonidine] Drug Allergy Adverse reaction to drug (disorder) [facility] (3 sources) DULoxetine; Translations: [duloxetine] Drug Allergy Adverse reaction to drug (disorder) [facility] (3 sources) FLUoxetine; Translations: [fluoxetine] Drug Allergy Reaction (qualifier value) [facility] (3 sources) gabapentin; Translations: [gabapentin] Drug Allergy Adverse reaction to drug (disorder) [facility] (3 sources) meloxicam; Translations: [meloxicam] Drug Allergy Adverse reaction to drug (disorder) [facility] (3 sources) Methocarbamol; Translations: [methocarbamol] Drug Allergy Adverse reaction to drug (disorder) [facility] (3 sources) montelukast; Translations: [montelukast] Drug Allergy Adverse reaction to drug (disorder) [facility] (3 sources) nabumetone; Translations: [nabumetone] Drug Allergy Reaction (qualifier value) [facility] (3 sources) pitavastatin; Translations: [pitavastatin] Drug Allergy [facility] (3 sources) predniSONE; Translations: [prednisone] Drug Allergy Adverse reaction to drug (disorder) [facility] (3 sources) pregabalin; Translations: [pregabalin] Drug Allergy Adverse reaction to drug (disorder) [facility] (3 sources) rosuvastatin; Translations: [rosuvastatin] Drug Allergy Adverse reaction to drug (disorder) [facility] (3 sources) Simvastatin; Translations: [simvastatin] Drug Allergy Reaction (qualifier value) [facility] (3 sources) tamsulosin; Translations: [tamsulosin] Drug Allergy Adverse reaction to drug (disorder) [facility] (3 sources) tiZANidine; Translations: [tizanidine] Drug Allergy Adverse reaction to drug (disorder) [facility] (3 sources) topiramate; Translations: [topiramate] Drug Allergy Adverse reaction to drug (disorder) [facility] (3 sources) traMADol; Translations: [tramadol] Drug Allergy Adverse reaction to drug (disorder) [facility] (3 sources) Metoprolol Drug Allergy 4 Rash [facility] (1 source) atorvastatin Drug Allergy 5 [facility] (1 source) Metoprolol Drug Allergy 5 [facility] (1 source) Pravastatin Drug Allergy 5 [facility] Medications Current Medications Medication Drug Class(es) Dates Sig (Normalized) Sig (Original) baclofen 10 mg oral tablet (2 sources) gamma-Aminobuty brian Acid-ergic Agonist Start: 07-07-2022 End: 08-06-2022 baclofen 10 mg oral tablet Dose : 10 mg = 1 tab(s), Oral, TID, Take one half tab (5 mg) 3 times daily for 3 days then increase to 1 full tab 3 times daily unless limiting side effects., # 90 tab(s), 0 Refill(s), Pharmacy: [id number], [id number], cm, 07/07/22 9:03:00 EST, He... Start Date: 07/07/22 Stop Date: 08/06/22 Status: Ordered cholecalciferol 0.05 mg oral capsule (14 sources) Vitamin D Start: 10-11-2024 take 1 capsule by mouth every other day Cholecalciferol (Vitamin D3) 50 mcg (2,000 unit) capsule Active 50 ug PO EVERY OTHER DAY October 11, 2024 12:00am pt takes at night Start: 11-19-2021 End: 12-18-2023 take 1 capsule by mouth once daily Cholecalciferol (Vitamin D3) 25 mcg (1,000 unit) capsule Discontinued 1000 U PO DAILY November 19, 2021 11:00am December 18, 2023 8:58am Start: 11-19-2021 take 3000 [IU] by mo [facility] once daily Cholecalciferol (Vitamin D3) Active 3000 UNIT PO DAILY November 19, 2021 11:00am Start: 06-11-2020 End: 11-19-2021 take 1 capsule by mouth once daily Cholecalciferol (Vitamin D3) 25 mcg (1,000 unit) capsule Discontinued 25 ug PO DAILY June 11, 2020 1:00am November 19, 2021 11:01am clindamycin 10 mg/ml topical lotion (2 sources) Lincosamide Antibacterial Start: 10-14-2024 Clindamycin Phosphate 1 % lotion Active TOPICAL October 14, 2024 12:00am Duloxetine 60 mg capsule,delayed release(DR/EC) (2 sources) Start: 10-14-2024 take 2 capsules by mouth once daily Duloxetine 60 mg capsule,delayed release(DR/EC) Active 120 mg PO DAILY October 14, 2024 12:00am finasteride 5 mg oral tablet (2 sources) 5-alpha Reductase Inhibitor Start: 10-11-2024 take 1 tablet by mouth once daily Finasteride 5 mg tablet Active 5 mg PO DAILY October 11, 2024 12:00am folic acid 0.8 mg oral tablet (5 sources) Start: 10-11-2024 take 1 tablet by mouth at bedtime Folic Acid 800 mcg tablet Active 800 ug PO AT BEDTIME October 11, 2024 12:00am Start: 06-12-2023 End: 12-18-2023 take 0.4 mg by mouth twice daily Folic Acid 400 mcg tablet Discontinued 0.4 mg PO TWICE A DAY June 12, 2023 1:00am December 18, 2023 8:58am Start: 06-12-2023 take 0.4 mg by mouth twice daily Folic Acid Active 0.4 MG PO TWICE A DAY June 12, 2023 1:00am hypromellose 3 mg/ml ophthalmic solution (2 sources) Start: 10-11-2024 take 0.3 drop(s) into the eye(s) twice daily as needed Artificial Tears(Hypromellose) 0.3 % drops Active 1 NMA EACH EYE TWICE A DAY as needed for dry eye(s) October 11, 2024 12:00am Ibuprofen (1 source) Nonsteroidal Anti-inflammatory Drug Start: 08-20-2022 ibuprofen Dose : 600 mg =, qDay, 0 Refill(s) Start Date: 08/20/22 Status: Ordered Lopressor 25mg--USE metoprolol tartrate 25 mg oral tablet (3 sources) Start: 07-07-2022 Lopressor 25mg--USE metoprolol tartrate 25 mg oral tablet Dose : 25 mg = 1 tab(s), Oral, BID, 0 Refill(s) Start Date: 07/07/22 Status: Ordered losartan potassium 25 mg oral tablet (20 sources) Angiotensin 2 Receptor Lobo Start: 10-11-2024 take 1 tablet by mouth once daily Losartan 25 mg tablet Active 25 mg PO DAILY October 11, 2024 12:00am On Hold: PT BP HAS BEEN LOW, SO PT HASNT BEEN TAKING Start: 01-18-2024 End: 10-10-2024 Losartan 25 mg tablet Discon tinued 12.5 mg PO DAILY January 18, 2024 8:18am October 10, 2024 4:59pm Start: 10-29-2023 End: 01-18-2024 take 1 tablet by mouth once daily Losartan 25 mg tablet Discontinued 25 mg PO DAILY October 29, 2023 12:00am January 18, 2024 8:18am Start: 07-07-2022 losartan 25 mg oral tablet Dose : 12.5 mg = 0.5 tab(s), Oral, qDay, # 30 tab(s), 0 Refill(s) Start Date: 07/07/22 Status: Ordered Start: 12-19-2020 End: 10-29-2023 Losartan 25 mg tablet Discon tinued 12.5 mg PO daily January 14, 2023 8:05am October 29, 2023 4:54pm Start: 12-19-2020 End: 01-14-2023 take 12.5 mg by mouth once daily Losartan Active 12.5 MG PO daily January 14, 2023 8:05am Start: 06-29-2017 End: 12-19-2020 take 1 tablet by mouth once daily Losartan 25 mg tablet Discontinued 25 mg PO daily April 06, 2020 12:59pm December 19, 2020 8:36am Start: 08-11-2016 End: 06-29-2017 Losartan 25 MG tablet Discon tinued 12.5 mg PO DAILY August 11, 2016 1:00am June 29, 2017 6:20pm Start: 08-11-2016 End: 06-29-2017 take 12.5 mg by mouth once daily Losartan Discontinued 12.5 MG PO DAILY August 11, 2016 1:00am June 29, 2017 6:20pm mecobalamin (2 sources) Start: 10-11-2024 take 1 tablet by mouth once daily Mecobalamin (Vitamin B12) 500 mcg tablet,chewable Active 500 ug PO DAILY October 11, 2024 12:00am methocarbamol 500 mg oral tablet (2 sources) Muscle Relaxant Start: 10-11-2024 take 1 tablet by mouth three times daily as needed for pain Methocarbamol 500 mg tablet Active 500 mg PO THREE TIMES A DAY as needed for back pain 10 3 October 11, 2024 11:18am omeprazole 20 mg delayed release oral capsule (13 sources) Proton Pump Inhibitor Start: 10-11-2024 take 1 capsule by mouth once daily Omeprazole 20 mg capsule,delayed release(DR/EC) Active 20 mg PO DAILY October 11, 2024 12:00am Start: 10-29-2023 End: 12-18-2023 take 1 capsule by mouth once daily Omeprazole 20 mg capsule,delayed release(DR/EC) Discontinued 20 mg PO DAILY October 29, 2023 12:00am December 18, 2023 8:57am Start: 07-07-2022 omeprazole 20 mg oral delayed release capsule Dose : 20 mg = 1 cap(s), Oral, qDay, # 30 cap(s), 0 Refill(s) Start Date: 07/07/22 Status: Ordered Start: 08-22-2018 End: 10-29-2023 take 1 tablet by mouth once daily Omeprazole Magnesium 20 MG tablet,delayed release (DR/EC) Discontinued 20 mg PO DAILY August 22, 2018 12:00am October 29, 2023 4:51pm oxyCODONE hydrochloride 5 mg oral tablet (2 sources) Opioid Agonist Start: 10-11-2024 take 1 tablet by mouth every six hours as needed for pain Oxycodone 5 mg tablet Active 5 mg PO EVERY 6 HOURS as needed for pain 12 3 October 11, 2024 traZODone hydrochloride 150 mg oral tablet (15 sources) Serotonin Reuptake Inhibitor Start: 07-07-2022 take 1 tablet by mouth once at bedtime traZODone 150 mg oral tablet Dose : 75 mg = 0.5 tab(s), Oral, qHS, 75mg q HS, # 30 tab(s), 0 Refill(s) Start Date: 07/07/22 Status: Ordered Start: 06-24-2016 End: 12-18-2023 Trazodone 150 mg tablet Disc ontinued 75 mg PO AT BEDTIME as needed for SLEEP May 16, 2019 2:08pm December 18, 2023 8:56am Start: 06-24-2016 End: 05-16-2019 take 75 mg by mouth at bedtime Trazodone Active 75 MG PO AT BEDTIME May 16, 2019 2:08pm Completed/Discontinued Medications Medication Drug Class(es) Dates Sig (Normalized) Sig (Original) aspirin 81 mg chewable tablet (20 sources) Platelet Aggregation Inhibitor, Nonsteroidal Anti-inflammatory Drug Start: 12-24-2018 aspirin 81 mg oral tablet (chewable) Dose : 81 mg = 1 tab(s), Oral, Daily, 0 Refill(s) Start Date: 12/24/18 Status: Ordered Start: 08-11-2016 End: 10-29-2023 take 1 tablet by mouth once daily Aspirin 81 mg tablet,chewable Discontinued 81 mg PO DAILY@0800 90 January 24, 2021 11:39am October 29, 2023 5:08pm atorvastatin 80 mg oral tablet (6 sources) HMG-CoA Reductase Inhibitor Start: 07-03-2017 End: 08-06-2017 take 1 tablet by mouth once daily Atorvastatin 80 mg tablet Discontinued 80 mg PO daily July 03, 2017 1:00am August 06, 2017 1:47pm 12 hr buPROPion hydrochloride 150 mg extended release oral tablet (6 sources) Aminoketone Start: 11-19-2021 End: 10-29-2023 take 1 tablet by mouth twice daily Bupropion Hcl 150 mg tablet sustained-release 12 hr Discontinued 150 mg PO TWICE A DAY November 19, 2021 12:00am October 29, 2023 5:03pm clopidogrel 75 mg oral tablet (20 sources) [id number] Platelet Inhibitor Start: 08-11-2016 End: 01-18-2024 take 1 tablet by mouth once daily Clopidogrel 75 mg tablet Discontinued 75 mg PO DAILY January 14, 2023 8:05am January 18, 2024 8:18am colestipol hydrochloride 1000 mg oral tablet (6 sources) Bile Acid Sequestrant Start: 08-06-2017 End: 08-06-2017 Colestipol 1 gram tablet Discontinued 1 g PO daily August 06, 2017 1:00am August 06, 2017 3:22pm doxazosin 4 mg oral tablet (20 sources) alpha-Adrenergic Lobo Start: 11-24-2016 End: 01-18-2024 take 1 tablet by mouth at bedtime Doxazosin 4 mg tablet Discontinued 4 mg PO AT BEDTIME January 14, 2023 8:05am January 18, 2024 8:18am doxycycline hyclate 100 mg oral capsule (4 sources) Tetracycline-class Drug Start: 12-18-2023 End: 10-11-2024 take 1 capsule by mouth twice daily Doxycycline Hyclate 100 mg capsule Discontinued 100 mg PO TWICE A DAY December 18, 2023 12:00am October 11, 2024 11:21am Start: 10-29-2023 End: 11-12-2023 take 1 capsule by mouth twice daily Doxycycline Monohydrate 100 mg capsule Discontinued 100 mg PO TWICE A DAY October 29, 2023 12:00am November 12, 2023 11:35am TAKE ONE CAPSULE BY MOUTH TWICE DAILY FOR 10 DAYS. START DATE: 10/28/23 END DATE: 11/06/23 1 ml evolocumab 140 mg/ml auto-injector (18 sources) PCSK9 Inhibitor Start: 11-12-2023 End: 10-11-2024 Evolocumab (Repatha Sureclick) 140 mg/mL pen injector Discontinued 140 mg SC every 2 weeks 2 January 07, 2024 4:30pm October 11, 2024 11:21am Start: 12-19-2020 End: 01-24-2021 Evolocumab (Repatha Sureclic k) 140 mg/mL pen injector Discontinued 140 mg SC every 2 weeks 2 December 19, 2020 4:30pm January 24, 2021 4:30pm ezetimibe 10 mg oral tablet (20 sources) Dietary Cholesterol Absorption Inhibitor Start: 01-24-2021 End: 05-16-2024 Ezetimibe 10 mg tablet Discontinued 0 .ROUTE .COMPLEX 90 July 27, 2023 10:36am October 29, 2023 4:54pm TAKE 1 TABLET EVERY DAY Start: 07-08-2019 End: 11-18-2019 take 1 tablet by mouth once daily Ezetimibe (Zetia) 10 mg tablet Discontinued 10 mg PO DAILY July 08, 2019 1:00am November 18, 2019 8:55am Start: 07-14-2017 End: 03-01-2018 take 1 tablet by mouth once daily Ezetimibe (Zetia) 10 mg tablet Discontinued 10 mg PO daily November 30, 2017 3:46pm March 01, 2018 4:44pm fenofibrate 145 mg oral tablet (15 sources) Peroxisome Proliferator Receptor alpha Agonist Start: 06-12-2023 End: 10-29-2023 Fenofibrate Nanocrystallized 145 mg tablet Discontinued 160 mg PO DAILY June 12, 2023 2:46pm October 29, 2023 4:51pm Start: 06-12-2023 take 160 mg by mouth once daily Fenofibrate Nanocrystallized Active 160 MG PO DAILY June 12, 2023 2:46pm Start: 06-12-2023 take 1 tablet by jose m th once daily Fenofibrate 160 mg tablet Active 160 mg PO DAILY June 12, 2023 1:00am Start: 11-19-2021 End: 06-12-2023 take 1 tablet by mouth once daily Fenofibrate Nanocrystallized 145 mg tablet Discontinued 145 mg PO DAILY November 19, 2021 12:00am June 12, 2023 2:50pm gemfibrozil 600 mg oral tablet (12 sources) Peroxisome Proliferator Receptor alpha Agonist Start: 05-16-2019 End: 11-18-2019 take 1 tablet by mouth twice daily Gemfibrozil 600 mg tablet Discontinued 600 mg PO TWICE A DAY 60 May 16, 2019 1:00am November 18, 2019 8:56am Start: 12-24-2016 End: 06-04-2017 take 1 tablet by mouth twice daily Gemfibrozil 600 MG tablet Discontinued 600 mg PO TWICE A DAY December 24, 2016 12:00am June 04, 2017 4:03pm 24 hr isosorbide mononitrate 30 mg extended release oral tablet (6 sources) Nitrate Vasodilator Start: 05-29-2017 End: 06-04-2017 take 1 tablet by mouth once daily in the morning, then take 1 tablet by mouth every twenty-four hours Isosorbide Mononitrate 30 mg tablet extended release 24 hr Discontinued 30 mg PO EVERY MORNING May 29, 2017 1:00am June 04, 2017 4:01pm swallow whole with glass of water; do not crush/chew /dissolve /cut/break Magnesium (9 sources) Start: 06-12-2023 End: 10-29-2023 take 1 tablet by mouth once daily as needed Magnesium 250 mg tablet Discontinued 250 mg PO DAILY as needed June 12, 2023 2:48pm October 29, 2023 5:05pm Start: 06-12-2023 take 250 mg by mouth once aly y Magnesium Active 250 MG PO DAILY June 12, 2023 2:48pm Start: 06-11-2020 End: 06-12-2023 take 1 tablet by mouth once daily Magnesium 250 mg tablet Discontinued 250 mg PO DAILY June 11, 2020 1:00am June 12, 2023 2:50pm Start: 06-11-2020 End: 06-12-2023 take 250 mg by mouth once daily Magnesium Discontinued 250 MG PO DAILY June 11, 2020 1:00am June 12, 2023 2:50pm Start: 06-11-2020 take 250 mg by mouth once aly y Magnesium Active 250 MG PO DAILY June 11, 2020 12:00am Start: 06-11-2020 take 250 mg by mouth once aly y Magnesium Active 250 MG PO DAILY June 11, 2020 1:00am melatonin 3 mg oral capsule (12 sources) Start: 05-16-2019 End: 10-29-2023 take 1 capsule by mouth at bedtime as needed Melatonin 3 mg capsule Discontinued 3 mg PO BEDTIME as needed November 18, 2019 8:56am October 29, 2023 5:05pm meloxicam 15 mg oral tablet (2 sources) Nonsteroidal Anti-inflammatory Drug Start: 10-29-2023 End: 12-18-2023 take 1 tablet by mouth once daily as needed for arthritis Meloxicam 15 mg tablet Discontinued 15 mg PO DAILY as needed for ARTHRITIS October 29, 2023 12:00am December 18, 2023 8:58am metoprolol tartrate 25 mg oral tablet (20 sources) beta-Adrenergic Lobo Start: 10-29-2023 End: 12-18-2023 take 1 tablet by mouth once daily Metoprolol Tartrate 25 mg tablet Discontinued 25 mg PO DAILY October 29, 2023 12:00am December 18, 2023 8:56am Start: 11-04-2022 End: 06-12-2023 Metoprolol Tartrate 25 mg ta blet Discontinued 0 .ROUTE .COMPLEX November 04, 2022 10:27am June 12, 2023 2:47pm TAKE 1/2 TABLET TWICE DAILY Start: 11-04-2022 End: 06-12-2023 Metoprolol Tartrate Disconti nued 0 .ROUTE .COMPLEX November 04, 2022 10:27am June 12, 2023 2:47pm TAKE 1/2 TABLET TWICE DAILY Start: 12-19-2020 End: 11-04-2022 Metoprolol Tartrate 25 mg ta blet Discontinued 12.5 mg PO TWICE A DAY January 10, 2022 8:12am November 04, 2022 10:27am Start: 12-19-2020 End: 11-04-2022 take 12.5 mg by mouth twice daily Metoprolol Tartrate Discontinued 12.5 MG PO TWICE A DAY January 10, 2022 8:12am November 04, 2022 10:27am Start: 06-11-2020 End: 12-19-2020 take 1 tablet by mouth twice daily Metoprolol Tartrate 25 mg tablet Discontinued 25 mg PO TWICE A DAY June 11, 2020 12:04pm December 19, 2020 8:56am Start: 06-27-2019 End: 06-11-2020 Metoprolol Tartrate 25 mg ta blet Discontinued 12.5 mg PO TWICE A DAY April 06, 2020 1:00pm June 11, 2020 12:05pm Start: 06-27-2019 End: 06-11-2020 take 12.5 mg by mouth twice daily Metoprolol Tartrate Discontinued 12.5 MG PO TWICE A DAY April 06, 2020 1:00pm June 11, 2020 12:05pm Start: 08-22-2018 End: 06-27-2019 take 1 tablet by mouth once daily Metoprolol Tartrate 25 MG tablet Discontinued 25 mg PO DAILY August 22, 2018 3:07pm June 27, 2019 5:53pm Start: 08-06-2017 End: 08-22-2018 take 1 tablet by mouth twice daily Metoprolol Tartrate 25 mg tablet Discontinued 25 mg PO TWICE A DAY 60 August 06, 2017 3:45pm August 22, 2018 3:07pm Start: 06-29-2017 End: 08-06-2017 take 0.5 tablet by mouth twice daily Metoprolol Tartrate 25 mg tablet Discontinued 25 mg PO .COMPLEX June 29, 2017 1:00am August 06, 2017 3:47pm 25 mg PO 0.5 tablet by mouth bid Start: 08-15-2016 End: 09-11-2016 take 1 tablet by mouth twice daily Metoprolol Tartrate 25 MG tablet Discontinued 25 mg PO TWICE A DAY August 15, 2016 1:00am September 11, 2016 10:59am Start: 08-11-2016 End: 08-15-2016 take 1 tablet by mouth twice daily Metoprolol Tartrate 50 MG tablet Discontinued 50 mg PO TWICE A DAY August 11, 2016 1:00am August 15, 2016 1:23pm nitroglycerin 0.4 mg sublingual tablet (14 sources) Nitrate Vasodilator Start: 08-11-2016 End: 10-29-2023 Nitroglycerin 0.4 mg tablet, sublingual Discontinued 0.4 mg SL NEEDED as needed for chest pain January 24, 2021 11:40am October 29, 2023 5:08pm pantoprazole 20 mg delayed release oral tablet (12 sources) Proton Pump Inhibitor Start: 08-15-2016 End: 11-30-2017 take 1 tablet by mouth once daily Pantoprazole 20 MG tablet Discontinued 20 mg PO DAILY August 17, 2017 12:37pm November 30, 2017 3:47pm phentermine hydrochloride 37.5 mg oral tablet (12 sources) Sympathomimetic Amine Anorectic Start: 11-19-2021 End: 10-29-2023 Phentermine 37.5 mg tablet Discontinued 18.75 mg PO DAILY November 19, 2021 12:00am October 29, 2023 5:06pm Start: 11-19-2021 take 18.75 mg by jose m th once daily Phentermine Active 18.75 MG PO DAILY November 19, 2021 12:00am Start: 12-19-2020 End: 11-19-2021 take 1 capsule by mouth once daily 30 minutes after breakfast Phentermine 37.5 mg capsule Discontinued 37.5 mg PO DAILY December 19, 2020 12:00am November 19, 2021 10:58am must administer 30 minutes before or 1-2 hours after breakfast pravastatin sodium 40 mg oral tablet (6 sources) HMG-CoA Reductase Inhibitor Start: 06-04-2017 End: 07-03-2017 take 1 tablet by mouth at bedtime Pravastatin 40 mg tablet Discontinued 40 mg PO AT BEDTIME June 04, 2017 1:00am July 03, 2017 5:07pm predniSONE 20 mg oral tablet (2 sources) Start: 10-11-2024 End: 10-14-2024 take 1 tablet by mouth once daily Prednisone 20 mg tablet Discontinued 20 mg PO DAILY October 11, 2024 12:00am October 14, 2024 8:52am rosuvastatin calcium 5 mg oral tablet (2 sources) HMG-CoA Reductase Inhibitor Start: 10-31-2023 End: 11-12-2023 take 1 tablet by mouth once daily Rosuvastatin 5 mg tablet Discontinued 5 mg PO DAILY October 31, 2023 12:00am November 12, 2023 11:29am Zinc (6 sources) Start: 06-11-2020 End: 10-29-2023 take 1 tablet by mouth once daily Zinc 50 mg tablet Discontinued 50 mg PO DAILY June 11, 2020 1:00am October 29, 2023 5:06pm Start: 06-11-2020 take 50 mg by mouth once daily Zinc Active 50 MG PO DAILY June 11, 2020 12:00am Start: 06-11-2020 take 50 mg by mouth once daily Zinc Active 50 MG PO DAILY June 11, 2020 1:00am zonisamide 50 mg oral capsule (12 sources) Anti-epileptic Agent Start: 11-19-2021 End: 10-29-2023 take 1 capsule by mouth twice daily Zonisamide 50 mg capsule Discontinued 50 mg PO TWICE A DAY November 19, 2021 12:00am October 29, 2023 5:07pm Start: 12-19-2020 End: 11-19-2021 take 1 capsule by mouth once daily Zonisamide 25 mg capsule Discontinued 25 mg PO DAILY December 19, 2020 12:00am November 19, 2021 10:59am Problems Active Problems Problem Classification Problem Date Documented Da te Episodic/Chronic Acute myocardial infarction (6 sources) Myocardial infarction; Translations: [Non-ST elevation (NSTEMI) myocardial infarction] 08-22-2018 Chronic Conditions associated with dizziness or vertigo (8 sources) Dizziness; Translations: [Dizziness and giddiness] Episodic Coronary atherosclerosis and other heart disease (20 sources) Preinfarction syndrome; Translations: [Unstable angina] Onset: 10-14-2024 Chronic Comment on above: PCI-FLORY-Mid LAD [id number], MId and 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 06/25/2016 Coronary atherosclerosis and other heart disease (3 sources) Presence of coronary angioplasty implant and graft; Translations: [Percutaneous transluminal coronary angioplasty status] Onset: 11-25-2016 Episodic Disorders of lipid metabolism (11 sources) Hypercholesterolemia ; Translations: [Pure hypercholesterolemia , unspecified] Onset: 10-14-2024 Chronic Essential hypertension (11 sources) Essential hypertension; Translations: [Essential (primary) hypertension] Onset: 10-14-2024 Chronic Nonspecific chest pain (8 sources) Chest pain; Translations: [Chest pain, unspecified] 08-22-2018 Episodic Other and ill-defined heart disease (8 sources) Dissection of coronary artery; Translations: [Coronary artery dissection] Onset: 06-08-2016 05-30-2020 Chronic Comment on above: Retrograde dissectio n in the right coronary artery into the ascending aortic root Other and ill-defined heart disease (2 sources) Coronary artery dissection; Translations: [Dissection of coronary artery] Onset: 06-08-2016 Chronic Other connective tissue disease (4 sources) Muscle pain; Translations: [Myalgia, unspecified site] Onset: 08-20-2022 07-07-2022 Episodic Other nervous system disorders (1 source) Chronic pain; Translations: [Other chronic pain] Onset: 08-20-2022 Chronic Other nervous system disorders (3 sources) Paresthesia of lower extremity 07-07-2022 Episodic Other non-traumatic joint disorders (3 sources) Hip pain 07-07-2022 Episodic Other non-traumatic joint disorders (1 source) Pain in right hip joint; Translations: [Pain in right hip] Onset: 08-20-2022 Episodic Residual codes; unclassified (3 sources) Chronic pain 07-07-2022 Episodic Spondylosis; intervertebral disc disorders; other back problems (6 sources) Spondylosis without myelopathy or radiculopathy, lumbar region; Translations: [Other intervertebral disc degeneration, lumbar region] Onset: 08-13-2017 Chronic Spondylosis; intervertebral disc disorders; other back problems (7 sources) Sciatica, right side; Translations: [Lumbago with sciatica] Onset: 08-13-2017 07-07-2022 Episodic Unclassified (1 source) Low back pain, unspecified; Translations: [Low back pain, unspecified] Onset: 10-18-2024 Past or Other Problems Problem Classification Problem Date Documented Da te Episodic/Chronic Bacterial infection (1 source) Rheumatic fever without heart involvement; Translations: [Rheumatic fever without heart involvement] Onset: 07-10-2017 Episodic Genitourinary symptoms and ill-defined conditions (3 sources) Nocturia; Translations: [Nocturia] Onset: 12-18-2023 12-18-2023 Episodic Other non-traumatic joint disorders (1 source) Pain in unspecified joint; Translations: [Pain in unspecified joint] Onset: 05-05-2017 Episodic Other screening for suspected conditions (not mental disorders or infectious disease) (2 sources) Elevated prostate specific antigen [PSA]; Translations: [Encounter for screening for malignant neoplasm of prostate] Onset: 06-09-2024 Episodic Unclassified (6 sources) dissection of coronary into ascending aorta Onset: 06-25-2016 05-30-2020 Results Test Name Value Interpretation Reference Range Facility L/S Spine Min 4 Viewson 10-06 L/S Spine Min 4 Views [facility] Imaging Services [address] [place] [address] L/S Spine Min 4 Views MR#: [id number] Acct: [id number] Name: ARYAN ROBERTS Rep #: [id number] : 1965 M 59 From: Dwayne Bedolla MD PCP: Dr. Cosme Berger MD Status: DEP AMB Study: L/S Spine Min 4 Views Date of Exam: 10/18/24 Exam# [id number] Ordering Dr: Paola Gould PROCEDURE: L/S SPINE MIN 4 VIEWS 10/18/2024 REASON FOR EXAM: PAIN, RADIATES DOWN LEFT LEG TECHNIQUE: Four views, AP, lateral and flexion-extension COMPARISON: None available FINDINGS: For nomenclature purposes there is a small appearing rudimentary rib on the left at L1. No fracture or malalignment. Suggestion of mild disc space narrowing L1-2. Mild multilevel degenerative endplate changes are seen with some anterior osteophyte formation. Mild appearing lower lumbar facet degenerative change. No evidence of instability. RAD/L/S Spine Min 4 Views IMPRESSION: Mild spondylotic changes as above. Reading Location: [id number] CC: DAVIE Zuñiga; Dr. Cosme Berger MD Ventilator Specialist: Signed Normal [facility] Orthopedic Visit Reporton Orthopedic Visit Report [facility] [address] [place] [address] [address] [place] [address] OFFICE VISIT Date of Service: 10/18/24 MR#: [id number] Acct: [id number] Name: ARYAN ROBERTS Rep #: [id number] : 1965 Provider: DAVIE Zuñiga Age/Sex: 59/M Location: [facility] [place] Status: Signed Intake Vital Signs 10/11/24 08:28 10/14/24 05:54 10/18/24 11:02 Height 5 ft 7 in 5 ft 7 in 5 ft 7 in Weight: 227 lb BMI 35.5 Intake Visit Reasons: LUMBAR SPINE Allergies atorvastatin (From Lipitor) Adverse Reaction (Severe, Verified 10/18/24 11:02) mylagias evolocumab (From Repatha SureClick) Adverse Reaction (Severe, Verified 10/18/24 11:02) Blurred vision metoprolol Adverse Reaction (Severe, Verified 10/18/24 11:02) Rash hydrocodone bitartrate (From Vicodin) Adverse Reaction (Intermediate, Verified 10/18/24 11:02) Itching pravastatin Adverse Reaction (Verified 10/18/24 11:02) GI upset and sore mouth Medications ???Medication ???Instructions ???Recorded ???Confirmed ???Type fenofibrate 160 mg tablet 160 mg PO DAILY CHOLESTEROL 10/18/24 History aspirin 81 mg chewable tablet 81 mg PO DAILY HEART HEALTH 10/18/24 History nitroglycerin 0.4 mg sublingual 0.4 mg sublingual DAILY PRN CHEST 10/29/23 10/18/24 History tablet PAIN clopidogrel 75 mg tablet 75 mg PO DAILY #90 TABLETS 4 10/18/24 Rx doxazosin 4 mg tablet 4 mg PO QHS #90 TABLETS 01/18/24 0 10/18/24 Rx ezetimibe 10 mg tablet 10 mg PO DAILY #90 TABLETS 4 10/18/24 Rx artificial tears(hypromellose) 0.3 1 drp EACH EYE BID PRN dry eye(s ) 10/11/24 10/18/24 History % eye drops cholecalciferol (vitamin D3) 50 50 mcg PO QODAY 10/11/24 10/18/24 History mcg (2,000 unit) capsule finasteride 5 mg tablet 5 mg PO DAILY 10/11/24 10/18/24 Hi story folic acid 800 mcg tablet 800 mcg PO QHS 10/11/24 10/18/24 H istory losartan 25 mg tablet 25 mg PO DAILY 10/11/24 10/18/24 H istory Held on 10/11/24. Instructions: PT BP HAS BEEN LOW, SO PT HASNT BEEN TAKING mecobalamin (vitamin B12) 500 mcg 500 mcg PO DAILY 10/11/24 5 History chewable tablet methocarbamol 500 mg tablet 500 mg PO TID PRN back pain 3 days 10/11/24 10/18/24 Rx #10 tabs omeprazole 20 mg capsule,delayed 20 mg PO DAILY 10/11/24 10/18/24 H istory release oxycodone 5 mg tablet 5 mg PO Q6H PRN pain 3 days #12 10/18/24 Rx tabs clindamycin phosphate 1 % lotion topical 10/14/24 10/18/24 History duloxetine 60 mg capsule,delayed 120 mg PO DAILY 10/14/24 10/18/24 History release PFSH Medical History Coronary artery 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) Essential hypertension Inflammatory polyarthropathy BPH (benign prostatic hyperplasia) GERD (gastroesophageal reflux disease) 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 Hypercholesterolemia Non-STEMI (non-ST elevated myocardial infarction) Surgical History History of colonoscopy ( 10/2019) Hx of abdominal surgery ( 10/2019) Hx of hand surgery History of coronary artery stent placement (11/03/23) Family History Mother , age 64 CAD (coronary artery disease) Rheumatic fever Brother CAD (coronary artery disease) Social History Smoking Status: Never smoker alcohol intake: current alcohol intake frequency: a few times a month substance use type: does not use caffeine: Yes Type: coffee Number of servings: 1 HPI LUMBAR SPINE Details: This documentation accurately reflects the service provided and the decisions made by , DAVIE Zuñiga 10/18/24 1100. Part of today???s visit was documented by Rossana HUNTER, acting as scribe. ARYAN ROBERTS is a 59 year old M here today for low back pain that he has been having for 20 years. He states that within the last 2 weeks his pain has gotten severely worse. He was in the ED for a few days due to the pain and was given morphine. His pain does radiate down both legs but is worse on the left down into his foot. The left-sided symptoms extend down the back and the lateral side of the leg without worsening at the knee. On the left side he will also get numbness into the foot. Right sided symptoms is lesser however he still has pain that extends down the back of his right leg and the lateral side of the thigh and stops several inches above the knee. He denies any pain that extends further down. Sitting does make his pain worse and he is more comfortable standing. He was at a shooting range recently and he went to slat pickler his gun and he was on the ground for 1 (more content not included)... Normal [facility] Cardiology Visit Reporton Cardiology Visit Report [facility] [place] [facility] [address] [place] [address] OFFICE VISIT Date of Service: 10/14/24 MR#: [id number] Acct: [id number] Name: ARYAN ROBERTS Rep #: [id number] : 1965 Provider: DAVIE Rivera Age/Sex: 59/M Location: [facility] Status: Signed HPI HPI History of Present Illness Details: Aryan Roberts is a 59-year-old gentleman with a history of coronary artery disease disease with 3 drug-eluting stents to RCA in June 2016 . The patient had undergone a PCI and had a retrograde dissection of the proximal portion of the aorta. He was transferred emergently after placement of a Synergy stent. He had previously had drug-eluting stent placed to left anterior descending artery and a right coronary artery stent. He was evaluated at [facility] in October 2023 for chest discomfort. He underwent chest CTA on 10/29/2023 that showed aorta to be unremarkable with normal caliber and no evidence of dissection. He proceeded with heart catheterization that showed left main with 30% stenosis, previous LAD stent is patent, ostial diagonal 1 with 99% stenosis, left circumflex with mild disease, OM1 with proximal 20-30% stenosis, and mid RCA with 80% in-stent restenosis. He underwent drug-eluting stent to ostial diagonal 1 and mid RCA. Echocardiogram showed an ejection fraction of 65%. Patient was seen in the emergency room earlier this week with back discomfort. Pt notes that he started to have back pain that radiates to his legs over the last 2 weeks. He also states that he is having times where he just cant focus. He has been feeling dizzy. He has been have episodes where he was burning up. He just does not feel right. He does have an appt with orthopedics next week. He is nauseated with is dizziness. He is concerned that this could be cardiac in nature. He has stopped his losartan d/t low Bp readings at home. Stopping the losartan did not make a difference with his dizziness. He has not taken his prednisone. He stopped taking his Repatha from bruising from his injections. Intake Vital Signs 10/11/24 08:28 10/14/24 05:54 Height 5 ft 7 in 5 ft 7 in Weight: 226 lb BMI 35.4 BP 139/84 H Blood Pressure Location Lt brachial Position Sitting Respiration 18 Pulse 73 Pulse Source Monitor Pulse Oximetry (%) 97 Intake Visit Reasons: s/p ER but something still not right Drop Board Worker Required: No Is patient in pain?: No Allergies atorvastatin (From Lipitor) Adverse Reaction (Severe, Verified 10/18/24 11:02) mylagias evolocumab (From Repatha SureClick) Adverse Reaction (Severe, Verified 10/18/24 11:02) Blurred vision metoprolol Adverse Reaction (Severe, Verified 10/18/24 11:02) Rash hydrocodone bitartrate (From Vicodin) Adverse Reaction (Intermediate, Verified 10/18/24 11:02) Itching pravastatin Adverse Reaction (Verified 10/18/24 11:02) GI upset and sore mouth Medications ???Medication ???Instructions ???Recorded ???Confirmed ???Type fenofibrate 160 mg tablet 160 mg PO DAILY CHOLESTEROL 10/18/24 History aspirin 81 mg chewable tablet 81 mg PO DAILY HEART HEALTH 10/18/24 History nitroglycerin 0.4 mg sublingual 0.4 mg sublingual DAILY PRN CHEST 10/29/23 10/18/24 History tablet PAIN clopidogrel 75 mg tablet 75 mg PO DAILY #90 TABLETS 4 10/18/24 Rx doxazosin 4 mg tablet 4 mg PO QHS #90 TABLETS 01/18/24 0 10/18/24 Rx ezetimibe 10 mg tablet 10 mg PO DAILY #90 TABLETS 4 10/18/24 Rx artificial tears(hypromellose) 0.3 1 drp EACH EYE BID PRN dry eye(s ) 10/11/24 10/18/24 History % eye drops cholecalciferol (vitamin D3) 50 50 mcg PO QODAY 10/11/24 10/18/24 History mcg (2,000 unit) capsule finasteride 5 mg tablet 5 mg PO DAILY 10/11/24 10/18/24 Hi story folic acid 800 mcg tablet 800 mcg PO QHS 10/11/24 10/18/24 H istory losartan 25 mg tablet 25 mg PO DAILY 10/11/24 10/18/24 H istory Held on 10/11/24. Instructions: PT BP HAS BEEN LOW, SO PT HASNT BEEN TAKING mecobalamin (vitamin B12) 500 mcg 500 mcg PO DAILY 10/11/24 5 History chewable tablet methocarbamol 500 mg tablet 500 mg PO TID PRN back pain 3 days 10/11/24 10/18/24 Rx #10 tabs omeprazole 20 mg capsule,delayed 20 mg PO DAILY 10/11/24 10/18/24 H istory release oxycodone 5 mg tablet 5 mg PO Q6H PRN pain 3 days #12 10/18/24 Rx tabs clindamycin phosphate 1 % lotion topical 10/14/24 10/18/24 History duloxetine 60 mg capsule,delayed 120 mg PO DAILY 10/14/24 10/18/24 History release Ejection fraction %: 65 Have you fallen in the past year?: No Nurse's Note: Patient does not know all of medications [facility] Medical History Coronary artery dissection ( 06/08 (more content not included)... Normal [facility] 12 Lead EKGon 10-11-2024 12 Lead EKG [facility] Cardiovascular Services [address] [place] [address] 12 Lead EKG 10/11/24 0906 MR#: [id number] Acct: [id number] Name: ARYAN ROBERTS Rep #: [id number] : 1965 59 From: Kal Simeon MD Attending Dr: Status: DEP ER Ordering Dr: Flaquito Huerta DO Date: 10/11/24 Location: ED Sex: M C Admitted: Test Reason : BACK PAIN Blood Pressure : */* mmHG Vent. Rate : 86 BPM Atrial Rate : 86 BPM P-R Int : 148 ms QRS Dur : 90 ms QT Int : 356 ms P-R-T Axes : 25 11 33 degrees QTcB Int : 426 ms Normal sinus rhythm Normal ECG Confirmed by Kal Simeon ([id number]), supervising film or videotape editor MAHOGANY MONTOYA ([id number]) on 10/14/2024 12:03:21 PM Referred By: TA Confirmed By: Kal Simeon 10/14/24 1203 Date Kal Simeon MD CC: Dr. Cosme Berger MD; Dr. Flaquito Huerta DO Signed Normal [facility] Absolute lymphocyte countOrd ered By: Flaquito Huerta on 10-11-2024 Lymphocytes Auto (Unsp spec) [#/Vol] 1.22 10*3/uL 0.83-4.51 [facility] Absolute neutrophil countOrd ered By: Flaquito Huerta on 10-11-2024 Neutrophils (Bld) [#/Vol] 3.4 10*3/uL 2.0-7.7 [facility] Anion gap in Serum or Plasma Ordered By: Flaquito Huerta on 10-11-2024 Anion gap [Moles/Vol] 13 mmol/L 5-15 [facility] Automated lymphocyte count a s percentage of total leukocytesOrdered By: Flaquito Huerta on 10-11-2024 Lymphocytes/100 WBC Auto (Unsp spec) 23.4 % 19-41 [facility] BUN/creatinine ratioOrdered By: Flaquito Huerta on 10-11-2024 Urea nitrogen/Creatinine [Mass ratio] 11.1 mg/mg - [facility] Basic Metabolic Profile (BMP )on 10-11-2024 BUN/CRE 11.1 RATIO Normal 03-27 [facility] Comment on above: Performed By: #### L 501.4021, L500.2500, L100.0100 #### [facility] [address] [place], [address] Calcium [Mass/Vol] 10.2 mg/dL Normal 7.6-11.0 [facility] Comment on above: Performed By: #### L 501.4021, L500.2500, L100.0100 #### [facility] [address] [place], [address] Chloride [Moles/Vol] 104 mmol/L Normal 98-108 [facility] Comment on above: Performed By: #### L 501.4021, L500.2500, L100.0100 #### [facility] [address] [place], [address] CO2 [Moles/Vol] 21.8 mmol/L Normal 21.0-32.0 [facility] Comment on above: Performed By: #### L 501.4021, L500.2500, L100.0100 #### [facility] [address] [place], [address] Creatinine [Mass/Vol] 1.29 mg/dL High 0.70-1.20 [facility] Comment on above: Performed By: #### L 501.4021, L500.2500, L100.0100 #### [facility] [address] [place], [address] ECRCL 72.48 ml/min Normal 50-250 [facility] Comment on above: Performed By: #### L 501.4021, L500.2500, L100.0100 #### [facility] [address] [place], [address] GAP 13 Normal 5-15 [facility] Comment on above: Performed By: #### L 501.4021, L500.2500, L100.0100 #### [facility] [address] [place], [address] GFR/1.73 sq M.predicted among non-blacks MDRD (S/P/Bld) [Vol rate/Area] 64 mL/min/{1.73_m2} Normal >60 [facility] Comment on above: Result Comment: mL/m in/1.73m2 CKD-EPI Creatinine Equation (2020) Performed By: #### L 501.4021, L500.2500, L100.0100 #### [facility] [address] [place], [address] Glucose [Mass/Vol] 130 mg/dL High 70-99 [facility] Comment on above: Performed By: #### L 501.4021, L500.2500, L100.0100 #### [facility] [address] [place], [address] Potassium [Moles/Vol] 4.2 mmol/L Normal 3.3-5.1 [facility] Comment on above: Performed By: #### L 501.4021, L500.2500, L100.0100 #### [facility] [address] [place], [address] Sodium [Moles/Vol] 138 mmol/L Normal 133-145 [facility] Comment on above: Performed By: #### L 501.4021, L500.2500, L100.0100 #### [facility] [address] [place], [address] Urea nitrogen [Mass/Vol] 14 mg/dL Normal 4-19 [facility] Comment on above: Performed By: #### L 501.4021, L500.2500, L100.0100 #### [facility] [address] [place], [address] Basophil percentageOrdered B y: Flaquito Huerta on 10-11-2024 Basophils/100 WBC (Bld) 1.0 % 0-1 [facility] CBC W/Diff, Automatedon Absolute Lymph 1.22 X10 3/uL Normal 0.83-4.51 [facility] Comment on above: Performed By: #### L 501.4021, L500.2500, L100.0100 #### [facility] [address] [place], [address] Absolute Neut 3.4 X10 3/uL Normal 2.0-7.7 [facility] Comment on above: Performed By: #### L 501.4021, L500.2500, L100.0100 #### [facility] [address] [place], [address] Basophils/100 WBC (Bld) 1.0 % Normal 0-1 [facility] Comment on above: Performed By: #### L 501.4021, L500.2500, L100.0100 #### [facility] [address] [place], [address] Eosinophils/100 WBC (Bld) 1.7 % Normal 0-5 [facility] Comment on above: Performed By: #### L 501.4021, L500.2500, L100.0100 #### [facility] [address] [place], [address] Erythrocyte distribution width (RBC) [Ratio] 13.5 % Normal 11.6-14.6 [facility] Comment on above: Performed By: #### L 501.4021, L500.2500, L100.0100 #### [facility] [address] [place], [address] Hematocrit (Bld) [Volume fraction] 48.2 % Normal 40-54 [facility] Comment on above: Performed By: #### L 501.4021, L500.2500, L100.0100 #### [facility] [address] [place], [address] Hemoglobin (Bld) [Mass/Vol] 17.1 g/dL High 13.0-16.5 [facility] Comment on above: Performed By: #### L 501.4021, L500.2500, L100.0100 #### [facility] [address] [place], [address] IG% 0.400 Normal 0.0-0.9 [facility] Comment on above: Result Comment: IG% - Immature Granulocytes (promyelocytes, myelocytes and metamyelocytes) > 1% indicates that a LEFT SHIFT is Present. Performed By: #### L 501.4021, L500.2500, L100.0100 #### [facility] [address] [place], [address] Lymphocytes/100 WBC (Bld) 23.4 % Normal 19-41 [facility] Comment on above: Performed By: #### L 501.4021, L500.2500, L100.0100 #### [facility] [address] [place], [address] MCH (RBC) [Entitic mass] 31.4 pg Normal 27.0-32.0 [facility] Comment on above: Performed By: #### L 501.4021, L500.2500, L100.0100 #### [facility] [address] [place], [address] MCHC (RBC) [Mass/Vol] 35.5 g/dL Normal 32-36 [facility] Comment on above: Performed By: #### L 501.4021, L500.2500, L100.0100 #### [facility] [address] [place], [address] MCV (RBC) [Entitic vol] 88.6 fL Normal 80-94 [facility] Comment on above: Performed By: #### L 501.4021, L500.2500, L100.0100 #### [facility] [address] [place], [address] Monocytes/100 WBC (Bld) 8.4 % Normal 0-10 [facility] Comment on above: Performed By: #### L 501.4021, L500.2500, L100.0100 #### [facility] [address] [place], [address] Neutrophils/100 WBC (Bld) 65.1 % Normal 47-70 [facility] Comment on above: Performed By: #### L 501.4021, L500.2500, L100.0100 #### [facility] [address] [place], [address] Nucleated RBC (Bld) [#/Vol] 0 10*3/uL Normal 0-5 [facility] Comment on above: Performed By: #### L 501.4021, L500.2500, L100.0100 #### [facility] [address] [place], [address] Platelet mean volume (Bld) [Entitic vol] 9.7 fL Normal 6.2-12.0 [facility] Comment on above: Performed By: #### L 501.4021, L500.2500, L100.0100 #### [facility] [address] [place], [address] Platelets (Bld) [#/Vol] 267 10*3/uL Normal 150-450 [facility] Comment on above: Performed By: #### L 501.4021, L500.2500, L100.0100 #### [facility] [address] [place], [address] RBC (Bld) [#/Vol] 5.44 10*6/uL Normal 4.6-6.2 [facility] Comment on above: Performed By: #### L 501.4021, L500.2500, L100.0100 #### [facility] [address] [place], [address] RDW SD 43.6 fl Normal 35.1-43.9 [facility] Comment on above: Performed By: #### L 501.4021, L500.2500, L100.0100 #### [facility] [address] [place], [address] WBC (Bld) [#/Vol] 5.2 10*3/uL Normal 4.4-11.0 [facility] Comment on above: Performed By: #### L 501.4021, L500.2500, L100.0100 #### [facility] [address] [place], [address] Carbon dioxide, total [Moles /volume] in Central venous bloodOrdered By: Flaquito Huerta on 10-11-2024 CO2 [Moles/Vol] 21.8 mmol/L 21.0-32.0 [facility] Chest 1 View (Portable)on Chest 1 View (Portable) [facility] Imaging Services [address] [place] [address] Chest 1 View (Portable) MR#: [id number] Acct: [id number] Name: ARYAN ROBERTS Rep #: [id number] : 1965 M 59 From: Colton August MD PCP: Dr. Cosme Berger MD Status: PRE ER Study: Chest 1 View (Portable) Date of Exam: 10/11/24 Exam# [id number] Ordering Dr: Flaquito Huerta DO PROCEDURE: CHEST 1 VIEW (PORTABLE), 10/11/2024 REASON FOR EXAM: CHEST PAIN TECHNIQUE: A single portable AP view of the chest was obtained. COMPARISON: 10/29/2023 FINDINGS: Heart: Coronary stent. Mediastinum: Unremarkable. Lungs/pleura: No focal consolidation. No sizeable pleural effusion or visible pneumothorax. Bones: Unremarkable. Lines and support devices: None. Other: None. RAD/Chest 1 View (Portable) IMPRESSION: 1. No visible acute cardiopulmonary findings 2. Additional description as above. Reading Location: [facility] CC: Dr. Cosme Berger MD; Dr. Flaquito Huerta DO Ventilator Specialist: Signed Normal [facility] Chloride assayOrdered By: Yaquelin Huerta on 10-11-2024 Chloride [Moles/Vol] 104 mmol/L 98-108 [facility] Emergency Department Summary on 10-11-2024 Emergency Department Summary [facility] Medical Records Department [address] [place] [address] Emergency Department Summary 10/11/24 MR#: [id number] Acct: [id number] Name: ARYAN ROBERTS Rep #: [id number] : 1965 59 From: Flaquito Huerta DO PCP: Dr. 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 Hypercholesterolemia Non-STEMI (non-ST elevated myocardial infarction) Home Medications ???Medication ???Instructions ???Recorded ???Last Taken ???Type fenofibrate 160 mg tablet 160 mg PO DAILY CHOLESTEROL 10/11/24 History aspirin 81 mg chewable tablet 81 mg PO DAILY HEART HEALTH 10/11/24 History nitroglycerin 0.4 mg sublingual 0.4 mg sublingual DAILY PRN CHEST 10/29/23 Unknown History tablet PAIN clopidogrel 75 mg tablet 75 mg PO DAILY #90 TABLETS 4 10/11/24 Rx doxazosin 4 mg tablet 4 mg PO QHS #90 TABLETS 01/18/24 0 10/10/24 Rx ezetimibe 10 mg tablet 10 mg PO DAILY #90 TABLETS 4 10/11/24 Rx artificial tears(hypromellose) 0.3 1 drp EACH EYE BID PRN dry eye(s ) 10/11/24 Unknown History % eye drops cholecalciferol (vitamin D3) 50 50 mcg PO QODAY 10/11/24 10/10/24 History mcg (2,000 unit) capsule finasteride 5 mg tablet 5 mg PO DAILY 10/11/24 10/11/24 Hi story folic acid 800 mcg tablet 800 mcg PO QHS 10/11/24 10/11/24 H istory losartan 25 mg tablet 25 mg PO DAILY 10/11/24 Unknown Hi story Held on 10/11/24. Instructions: PT BP HAS BEEN LOW, SO PT HASNT BEEN TAKING mecobalamin (vitamin B12) 500 mcg 500 mcg PO DAILY 10/11/24 Unknown History chewable tablet methocarbamol 500 mg tablet 500 mg PO TID PRN back pain 3 days 10/11/24 Unknown Rx #10 tabs omeprazole 20 mg capsule,delayed 20 mg PO DAILY 10/11/24 10/11/24 H istory release oxycodone 5 mg tablet 5 mg PO Q6H PRN pain 3 days #12 Unknown Rx tabs prednisone 20 mg tablet 20 mg PO DAILY #20 tabs 10/11/24 U nknown Rx Allergy/AdvReac Type Severity Reaction Status Date / Time atorvastatin (From Lipitor) AdvReac Severe mylagias Verified 12/18/23 08:51 evolocumab (From Repatha AdvReac Severe Blurred Verified 12/18/23 08:51 SureClick) vision metoprolol AdvReac Severe Rash Verified 12/18/23 08:51 hydrocodone bitartrate (From AdvReac Intermediate Itching Verified 12/18/23 08:51 Vicodin) pravastatin AdvReac GI upset Verified 12/18/23 08:51 and sore mouth Family History (Reviewed 12/18/23 @ 09:06 by Olayinka French NUTRITIONAL HEALTH COACH, NUTRITIONAL HEALTH COACH-C) Mother , age 64 CAD (coronary artery disease) Rheumatic fever Brother CAD (coronary artery disease) Surgical History (Reviewed 12/18/23 @ 09:06 by Olayinka H Roof NUTRITIONAL HEALTH COACH, NUTRITIONAL HEALTH COACH-C) History of colonoscopy ( 10/2019) Hx of abdominal surgery ( 10/2019) Hx of hand surgery History of coronary artery stent placement (11/03/23) Social History (Reviewed 12/18/23 @ 09:06 by Olayinka French NUTRITIONAL HEALTH COACH, NUTRITIONAL HEALTH COACH-C) Smoking Status: Never smoker alcohol intake: current alcohol intake frequency: a few times a month substance use type: does not use caffeine: Yes Type: coffee Number of servings: 1 EXAM Physical Exam Const Vital Signs: 10/11/24 08:28 10/11/24 09:10 10/11/24 10:28 Temperature 98 F Temperature Source Temporal Pulse Rate 89 Respiratory Rate 14 18 Blood Pressure 150/102 H Blood Pressure Mean 118 Pulse Ox 98 Oxygen Delivery Method Room Air Room Air 10/11/24 11:44 10/11/24 11:47 Temperature 98 F 98 F Temperature Source Pulse Rate 89 78 Respiratory Rate 18 18 Blood Pressure 150/102 H 124/70 H Blood Pressure Mean 118 88 Pulse Ox 98 99 Oxygen Delivery Method MDM MDM MDM Narrative Medical decision making narrative: HISTORY OF PRESENT ILLNESS: Chief complaint: Back pain 59-year-old male history of hypertension, CAD, hyperlipidemia presents concern for acute on chronic low notes he always has back pain. Back pain. Notes acute worsening onset of left-sided low back pain radiates down the left leg. Started 3 days ago. Denies fever. Denies bowel symptoms. No falls or trauma noted. Denies chest pain shortness of breath but does note dizziness and nausea. He notes his blood pressure has been running low at home. Denies chest pain. notes he discontinued his losartan. He notices blood pressure has been improved since this intervention. The patient notes he has significant past ca (more content not included)... Normal [facility] Eosinophil percentageOrdered By: Flaquito Huerta on 10-11-2024 Eosinophils/100 WBC (Bld) 1.7 % 0-5 [facility] Erythrocyte distribution wid th ratioOrdered By: Flaquito Huerta on 10-11-2024 Erythrocyte distribution width (RBC) [Ratio] 13.5 % 11.6-14.6 [facility] Erythrocyte distribution wid th standard deviationOrdered By: Flaquito Huerta on 10-11-2024 Erythrocyte distribution width (RBC) [Ratio] 43.6 fl 35.1-43.9 [facility] Glomerular filtration rate ( GFR) estimation/1.73 sq m using serum, plasma, or whole bOrdered By: Flaquito Huerta on 10-11-2024 GFR/1.73 sq M.predicted among non-blacks MDRD (S/P/Bld) [Vol rate/Area] 64 mL/min/{1.73_m2} >60 [facility] Comment on above: mL/min/1.73m2 CKD-EP I Creatinine Equation (2020) Hematocrit Auto (Bld) [Volum e fraction]Ordered By: Flaquito Huerta on 10-11-2024 Hematocrit (Bld) [Volume fraction] 48.2 % 40-54 [facility] Hemoglobin measurementOrdere d By: Flaquito Huerta on 10-11-2024 Hemoglobin (Bld) [Mass/Vol] 17.1 g/dL High 13.0-16.5 [facility] Immature granulocytes/100 WB C Auto (Bld)Ordered By: Flaquito Huerta on 10-11-2024 Immature granulocytes/100 WBC (Bld) 0.400 % 0.0-0.9 [facility] Comment on above: IG% - Immature Granu locytes (promyelocytes, myelocytes and metamyelocytes) > 1% indicates that a LEFT SHIFT is Present. L499.0042on 10-11-2024 Trop T High Sen Normal <=22 [facility] Comment on above: Result Comment: Ana Lilia robles via OM: Ordered Performed By: #### L 499.0042 #### [facility] [address] [place], [address] L501.4021on 10-11-2024 Trop T High Sen 11 ng/L Normal <=22 [facility] Comment on above: Performed By: #### L 501.4021, L500.2500, L100.0100 #### [facility] [address] [place], [address] MCV (mean corpuscular volume ) determinationOrdered By: Flaquito Huerta on 10-11-2024 MCV (RBC) [Entitic vol] 88.6 fL 80-94 [facility] Mean corpuscular hemoglobin (MCH) determinationOrdered By: Flaquito Huerta on 10-11-2024 MCH (RBC) [Entitic mass] 31.4 pg 27.0-32.0 [facility] Mean corpuscular hemoglobin concentration (MCHC) determinationOrdered By: Flaquito Huerta on 10-11-2024 MCHC (RBC) [Mass/Vol] 35.5 g/dL 32-36 [facility] Mean platelet volume determi nationOrdered By: Flaquito Huerta on 10-11-2024 Platelet mean volume (Bld) [Entitic vol] 9.7 fL 6.2-12.0 [facility] Monocyte percentageOrdered B y: Flaquito Huerta on 10-11-2024 Monocytes/100 WBC (Bld) 8.4 % 0-10 [facility] Neutrophil percentageOrdered By: Flaquito Huerta on 10-11-2024 Neutrophils/100 WBC (Bld) 65.1 % 47-70 [facility] Nucleated red blood cell per centageOrdered By: Flaquito Huerta on 10-11-2024 Nucleated RBC/100 WBC (Bld) [Ratio] 0 % 0-5 [facility] Platelet countOrdered By: Yaquelin Huerta on 10-11-2024 Platelets (Bld) [#/Vol] 267 10*3/uL 150-450 [facility] Potassium measurement (mass/ volume)Ordered By: Flaquito Huerta on 10-11-2024 Potassium (Unsp spec) [Mass/Vol] 4.2 mmol/L 3.3-5.1 [facility] RBC Auto (Bld) [#/Vol]Ordere d By: Flaquito Huerta on 10-11-2024 RBC (Bld) [#/Vol] 5.44 10*6/uL 4.6-6.2 [facility] Serum creatinine measurement (mass/volume)Ordered By: Flaquito Huerta on 10-11-2024 Creatinine [Mass/Vol] 1.29 mg/dL High 0.70-1.20 [facility] Serum glucose measurement (m ass/volume)Ordered By: Flaquito Huerta on 10-11-2024 Glucose [Mass/Vol] 130 mg/dL High 70-99 [facility] Serum or plasma calcium brad urement (mass/volume)Ordered By: Flaquito Huerta on 10-11-2024 Calcium [Mass/Vol] 10.2 mg/dL 7.6-11.0 [facility] Serum or plasma urea nitroge n measurement (mass/volume)Ordered By: Flaquito Huerta on 10-11-2024 Urea nitrogen [Mass/Vol] 14 mg/dL 4-19 [facility] Sodium levelOrdered By: Jazlyn Huerta on 10-11-2024 Sodium [Moles/Vol] 138 mmol/L 133-145 [facility] Troponin T.cardiac [Mass/vol ume] in Serum or Plasma by High sensitivity methodOrdered By: Flaquito Huerta on 10-11-2024 Troponin T.cardiac High sensitivity method [Mass/Vol] 11 ng/L <22 [facility] White blood cell (WBC) count Ordered By: Flaquito Huerta on 10-11-2024 WBC (Bld) [#/Vol] 5.2 10*3/uL 4.4-11.0 [facility] PSA,Total- Diagnosticon 02-0 PSA, DIAGNOSTIC 3.06 ng/mL Normal 0.0-4.0 [facility] Comment on above: Result Comment: This test was performed using the TPSA assay method for the [employer] chemistry system. Values obtained with different assay methods cannot be used interchangably. When changing PSA assays in the course of monitoring a patient, additional sequential testing should be carried out to confirm baseline values. Performed By: #### L 501.9940 #### [facility] [address] [place], [place], [id number] PSA,Total - Annual Screenon 01-11-2024 PSA,TOT SCREEN 5.55 ng/mL High 0.00-4.00 [facility] Comment on above: Result Comment: This test was performed using the TPSA assay method for the [employer] chemistry system. Values obtained with different assay methods cannot be used interchangably. When changing PSA assays in the course of monitoring a patient, additional sequential testing should be carried out to confirm baseline values. Performed By: #### L 501.9910 #### [facility] [address] [place], [address] Cardiology Visit Reporton Cardiology Visit Report [facility] [address] [place] [address] OFFICE VISIT Date of Service: 12/18/23 MR#: [id number] Acct: [id number] Name: ARYAN ROBERTS Rep #: [id number] : 1965 Provider: ANTONIO cedillo Age/Sex: 58/M Location: [facility] Status: Signed HPI HPI History of Present Illness Details: Aryan khalil is a 58-year-old gentleman that presents here today for a cardiovascular outpatient follow-up. He does have a history of coronary artery disease disease with 3 drug-eluting stents to RCA in June 2016 . The patient had undergone a PCI and had a retrograde dissection of the proximal portion of the aorta. He was transferred emergently after placement of a Synergy stent. He had previously had drug-eluting stent placed to left anterior descending artery and a right coronary artery stent. He was evaluated at [facility] in October 2023 for chest discomfort. He underwent chest CTA on 10/29/2023 that showed aorta to be unremarkable with normal caliber and no evidence of dissection. He proceeded with heart catheterization that showed left main with 30% stenosis, previous LAD stent is patent, ostial diagonal 1 with 99% stenosis, left circumflex with mild disease, OM1 with proximal 20-30% stenosis, and mid RCA with 80% in-stent restenosis. He underwent drug-eluting stent to ostial diagonal 1 and mid RCA. Echocardiogram showed an ejection fraction of 65%. He denies chest, arm, jaw, or neck discomfort. He denies palpitations. He denies bilateral lower extremity edema. He denies claudication. He denies shortness of breath with activity, shortness of breath at rest, orthopnea, or PND. He denies chronic cough. He denies significant, sudden weight gain. He denies lightheadedness, dizziness, near-syncope, or syncope. He denies blood in urine, blood in stool, or epistaxis. He denies fever with chills. He denies myalgia. He denies fatigue. His exercise level has remained stable. Intake Vital Signs 06/12/23 13:34 11/12/23 10:57 12/18/23 08:51 Height 5 ft 7 in 5 ft 7 in 5 ft 7 in Weight: 225 lb BMI 35.2 BP 117/74 Blood Pressure Location Lt brachial Position Sitting Respiration 18 Pulse 84 Pulse Source Monitor Pulse Oximetry (%) 96 Intake Visit Reasons: 6 M FU Drop Board Worker Required: No Is patient in pain?: No Allergies atorvastatin (From Lipitor) Adverse Reaction (Severe, Verified 12/18/23 08:51) mylagias evolocumab (From Repatha SureClick) Adverse Reaction (Severe, Verified 12/18/23 08:51) Blurred vision metoprolol Adverse Reaction (Severe, Verified 12/18/23 08:51) Rash hydrocodone bitartrate (From Vicodin) Adverse Reaction (Intermediate, Verified 12/18/23 08:51) Itching pravastatin Adverse Reaction (Verified 12/18/23 08:51) GI upset and sore mouth Medications ???Medication ???Instructions ???Recorded ???Confirmed ???Type clopidogrel 75 mg tablet 75 mg PO DAILY BLOOD THINNER #90 01/14/23 12/18/23 Rx tabs doxazosin 4 mg tablet 4 mg PO QHS BLOOD PRESSURE #90 01/14/23 12/18/23 Rx tabs fenofibrate 160 mg tablet 160 mg PO DAILY CHOLESTEROL 06/12/23 12/18/23 History aspirin 81 mg chewable tablet 81 mg PO DAILY HEART HEALTH 10/29/23 12/18/23 History losartan 25 mg tablet 25 mg PO DAILY BLOOD PRESSURE 10/29/23 12/18/23 History nitroglycerin 0.4 mg sublingual 0.4 mg sublingual DAILY PRN CHEST 10/29/23 12/18/23 History tablet PAIN doxycycline hyclate 100 mg capsule 100 mg PO BID 12/18/23 12/18/23 History evolocumab 140 mg/mL subcutaneous 140 mg subcut Q2W #2 mL 12/18/23 12/18/23 Rx pen injector (Repatha SureClick) ezetimibe 10 mg tablet (Zetia) 10 mg PO DAILY 12/18/23 12/18/23 History PFSH Medical History (Reviewed 12/18/23 @ 09:06 by Olayinka French NUTRITIONAL HEALTH COACH, NUTRITIONAL HEALTH COACH-C) Coronary artery 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) Essential hypertension Inflammatory polyarthropathy BPH (benign prostatic hyperplasia) GERD (gastroesophageal reflux disease) 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 Hypercholesterolemia Non-STEMI (non-ST elevated myocardial infarction) Surgical History (Reviewed 12/18/23 @ 09:06 by Olayinka French NUTRITIONAL HEALTH COACH, NUTRITIONAL HEALTH COACH-C) History of colonoscopy ( 10/2019) Hx of abdominal surgery ( 10/2019) Hx of hand surgery History of coronary artery stent placement (11/03/23) Family History Mother , age 64 CAD (coronary artery disease) Rheumatic fever Brother CAD (coronary artery disease) Social History Smoking Status: Never smoker alcohol intake: current alcohol intake frequency: a few times a month substance use type: does not use caffeine: Yes Type: coffee Number of servings: 1 ROS (more content not included)... Normal [facility] Cardiology Visit Reporton Cardiology Visit Report [facility] [facility] [place], [place] [address] OFFICE VISIT Date of Service: 11/12/23 MR#: [id number] Acct: [id number] Name: ARYAN ROBERTS Rep #: [id number] : 1965 Provider: DAVIE Rivera Age/Sex: 58/M Location: [facility] Status: Signed [facility] History of Present Illness Details: Aryan also is a 58-year-old gentleman that presents here today for a hospital stay. He presented to [facility] on 10/29/2023 with chest pain. He does have a history of coronary artery disease disease with 3 drug-eluting stents to RCA in June 2016 . The patient had undergone a PCI and had a retrograde dissection of the proximal portion of the aorta. He was transferred emergently after placement of a Synergy stent. He had previously had drug-eluting stent placed to left anterior descending artery and a right coronary artery stent. From the cardiology standpoint he was last evaluated with an echocardiogram in 2020 which demonstrated an ejection fraction of 60% with mild aortic calcification. Stress test performed at that time also did not demonstrate any evidence of ischemia. He was admitted for further evaluation. Echocardiogram demonstrated preserved ejection fraction. His discomfort was concerning for angina he did undergo a diagnostic heart catheterization. This demonstrated left main distal disease of 30%, LAD previously placed stent patent, diagonal 1 ostial 99% stenosis, circumflex mild irregularities, OM1 proximal 20 to 30% stenosis, mid RCA 80% in-stent stenosis. Patient underwent stenting of his ostial diagonal 1 and mid RCA. Pt is feeling better. He notes that prior to coming in to the hospital he was not able to mow his yard, he would have left arm pain and fatigue. He notes that now he can mow the lawn without issues. He does have arthritis issues and this does limit his activity some. Intake Vital Signs 10/29/23 18:49 11/12/23 10:54 11/12/23 10:57 Height 5 ft 7 in 5 ft 7 in 5 ft 7 in Weight: 221 lb BMI 34.6 BP 124/76 H Blood Pressure Location Lt brachial Position Sitting Respiration 18 Pulse 67 Pulse Source Monitor Pulse Oximetry (%) 97 Intake Visit Reasons: S/P [facility] 10/30 Stent Drop Board Worker Required: No Is patient in pain?: No Allergies atorvastatin (From Lipitor) Adverse Reaction (Severe, Verified 11/12/23 10:55) mylagias evolocumab (From Repatha SureClick) Adverse Reaction (Severe, Verified 11/12/23 10:55) Blurred vision metoprolol Adverse Reaction (Severe, Verified 11/12/23 10:55) Rash hydrocodone bitartrate (From Vicodin) Adverse Reaction (Intermediate, Verified 11/12/23 10:55) Itching pravastatin Adverse Reaction (Verified 11/12/23 10:55) GI upset and sore mouth Medications ???Medication ???Instructions ???Recorded ???Confirmed ???Type trazodone 150 mg tablet 75 mg PO QHS PRN SLEEP 05/16/19 11/12/23 History cholecalciferol (vitamin D3) 25 1,000 unit PO DAILY SUPPLEMENT 11/19/21 11/12/23 History mcg (1,000 unit) capsule clopidogrel 75 mg tablet 75 mg PO DAILY BLOOD THINNER #90 01/14/23 11/12/23 Rx tabs doxazosin 4 mg tablet 4 mg PO QHS BLOOD PRESSURE #90 01/14/23 10/29/23 Rx tabs fenofibrate 160 mg tablet 160 mg PO DAILY CHOLESTEROL 06/12/23 10/29/23 History folic acid 400 mcg tablet 0.4 mg PO BID SUPPLEMENT 06/12/23 10/29/23 History aspirin 81 mg chewable tablet 81 mg PO DAILY HEART HEALTH 10/29/23 11/12/23 History ezetimibe 10 mg tablet 10 mg PO DAILY CHOLESTEROL 10/29/23 10/29/23 History losartan 25 mg tablet 25 mg PO DAILY BLOOD PRESSURE 10/29/23 11/12/23 History meloxicam 15 mg tablet 15 mg PO DAILY PRN ARTHRITIS 10/29/23 11/12/23 History metoprolol tartrate 25 mg tablet 25 mg PO DAILY BLOOD PRESSURE 10/29/23 11/12/23 History nitroglycerin 0.4 mg sublingual 0.4 mg sublingual DAILY PRN CHEST 10/29/23 11/12/23 History tablet PAIN omeprazole 20 mg capsule,delayed 20 mg PO DAILY ACID REFLUX 10/29/23 11/12/23 History release evolocumab 140 mg/mL subcutaneous 140 mg subcut Q2W #2 mL 11/12/23 11/12/23 Rx pen injector (Petrona Maldonado) Nurse's Note: no list, guessing at what medications he is currently [facility] Medical History Coronary artery 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) Essential hypertension Inflammatory polyarthropathy BPH (benign prostatic hyperplasia) GERD (gastroesophageal reflux disease) 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 [facility] Rheumatoid Factor <6.0 Normal <=6.0 [facility] ([place]) Comment on above: Result Comment: RF I gM Antibody by Enzyme Immunoassay: Negative < or = 6 Positive > 6 A positive result indicates the presence of RF antibodies and suggests the possibility of rheumatoid arthritis. A negative result indicates no RF IgM antibody or levels below the negative cut-off of the assay. Results of this assay should be used in conjunction with clinical findings and other serological tests. These results were obtained with the [employer] QUANTA Lite RF IgM KWESI. RF IgM values obtained with different manufacturers' assay methods may not be used interchangeably. The magnitude of the reported IgM levels cannot be correlated to an endpoint titer. Performed By: #### T ESTO, RF, JOSE, LIZA #### [place] [address] #### ESR, URIC, VIDH #### [place] [address] .ANATon 07-09-2022 JOSE Pattern 1 Speckled Normal [facility] ([place]) Comment on above: Result Comment: [facility] an JOSE titer of less than 160 is not considered suggestive of significant rheumatoid disease. If clinical suspicion is high, suggest repeat testing in 1-2 months. Performed By: #### T ESTO, RF, JOSE, LIZA #### [place] [address] #### ESR, URIC, VIDH #### [place] [address] JOSE Titer 1 40 Normal [facility] ([place]) Comment on above: Performed By: #### T ESTO, RF, JOSE, LIZA #### [place] [address] #### ESR, URIC, VIDH #### [place] [address] ANAon 07-09-2022 JOSE See Titer Normal Neg 40 [facility] ([place]) Comment on above: Result Comment: JOSE Screen and Titer methodology is an immunofluorescent technique utilizing Hep2 Substrate. Performed By: #### T ESTO, RF, JOSE, LIZA #### [place] [address] #### ESR, URIC, VIDH #### [place] [address] [place], [place] [address] XR HIP MINIMUM 2 VIEWS RIGHT on 07-09-2022 XR HIP MINIMUM 2 VIEWS RIGHT ORIGINAL EXAMINATION: TWO XRAY VIEWS OF THE RIGHT HIP07/08/2022 10:50 am HIP AP and LATERAL RIGHT XR right hip two views COMPARISON: Pelvis 12/18/2015 HISTORY: ORDERING SYSTEM PROVIDED HISTORY: Reason for Exam: Right hip pain and limited motion, FINDINGS: No acute fracture, dislocation, lytic process or periosteal reaction is seen in the visualized bones and joints. No erosive type of arthritis. No periarticular soft tissue calcification. There is mild right hip osteoarthritis without joint space narrowing. Normal right SI joint. IMPRESSION: No acute skeletal abnormality is seen. . Mild osteoarthritis. Interpreted by: Royer Lopez MD Preliminary Report By: Royer Lopez MD Electronically signed By Royer Lopez MD Dictated Date: 07/09/2022 3:12:44 PM Prelim Date: 07/09/2022 3:13:16 PM Sign Date: 07/09/2022 3:13:16 PM Ordering Provider: CONSTANTINO BERGMAN [facility] ([place]) XR SPINE LUMBAR AP/LAT/FLEX/ EXTon 07-09-2022 XR SPINE LUMBAR AP/LAT/FLEX/EXT ORIGINAL EXAMINATION: AP lateral flexion and extension 4 XRAY VIEWS OF THE LUMBAR SPINE07/08/2022 10:50 am COMPARISON: None HISTORY: ORDERING SYSTEM PROVIDED HISTORY: Reason for Exam: Severe back pain radiating to hip FINDINGS: 5 lumbar-type vertebral bodies show normal height and AP alignment in the neutral position. There is no instability with flexion and extension. No significant disc space narrowing. Multilevel endplate spurring and mild to moderate lower lumbar spine facet arthropathy. Symmetric SI joints. No sacral lesion. IMPRESSION: Degenerative changes. No acute finding or dynamic instability. Interpreted by: Royer Lopez MD Preliminary Report By: Royer Lopez MD Electronically signed By Royer Lopez MD Dictated Date: 07/09/2022 3:11:24 PM Prelim Date: 07/09/2022 3:12:14 PM Sign Date: 07/09/2022 3:12:14 PM Ordering Provider: CONSTANTINO BERGMAN [facility] ([place] ESRon 07-08-2022 Erythrocyte Sed Rate 4 mm/hr Normal 0-20 [facility] ([place]) Comment on above: Performed By: #### DANIELLE BETTS ANA, LIZA #### [place] [address] #### ESR, URIC, VIDH #### [address] [address] LABORATORYOrdered By: Izabela Love on 07-08-2022 ESR 15 minute reading (Bld) [Velocity] 4 mm/hr Invalid Interpretation Code 0 - 20 mm/hr AO Man Heme SS LABORATORYOrdered By: SYSTEM SYSTEM on 07-08-2022 Testosterone [Mass/Vol] 277.41 ng/dL Invalid Interpretation Code 86.98 - 780.10 ng/dL AH ADM SS Uric Acid Lvl 4.2 mg/dL Invalid Interpretation Code 3.5 - 7.2 mg/dL AO ADM SS Vit. D 25-Hydroxy 36.7 ng/mL Invalid Interpretation Code AO ADM SS TESTOon 07-08-2022 Testosterone Lvl 277.41 ng/dL Normal 86.98-780. 10 [facility] ([place]) Comment on above: Result Comment: Norm al Reference Ranges for Females: Female Premenopause Age 21-60 9.01-47.94 ng/dL Female Postmenopause Age 45-89 <7.00-45.62 ng/dL Performed By: #### DANIELLE BETTS ANA, LIZA #### [place] [address] #### ESR, URIC, VIDH #### [address] [address] URICon 07-08-2022 Uric Acid Lvl 4.2 mg/dL Normal 3.5-7.2 [facility] ([place]) Comment on above: Performed By: #### DANIELLE BETTS ANA, LIZA #### [place] [address] #### ESR, URIC, VIDH #### [address] [address] VIDHon 07-08-2022 Vit. D 25-Hydroxy 36.7 ng/mL Normal [facility] ([place]) Comment on above: Result Comment: Inte rpretive Values Based on Total 25(OH) Vitamin D: Deficient <20 ng/mL Insufficient 20 - <30 ng/mL Sufficient 30-100 ng/mL Performed By: #### T MAGDALENA, RF, JOSE, LIZA #### [facility] [address] [place] [id number] #### ESR, URIC, VIDH #### [place] [address] [place], [place] [address] Absolute lymphocyte counton 11-19-2021 Lymphocytes Auto (Unsp spec) [#/Vol] 1.02 10*3/uL 0.83-4.51 [facility] Work Phone: Basophil percentageon 2021 Basophils/100 WBC (Bld) 0.9 % 0-1 [facility] Work Phone: Bilirubin [Mass/Vol] 0.30 mg/dL 0.20-1.00 [facility] Work Phone: Comment on above: For patients on eltr ombopag therapy, use of Dimension [place] TBIL is not recommended. Chloride [Moles/Vol] 109 mmol/L 98-107 [facility] Work Phone: Cholesterol [Mass/Vol] 182 mg/dL <200 [facility] Work Phone: Comment on above: <200 mg/dL Desirable 200-240 mg/dL Borderline >240 mg/dL High Risk Eosinophils/100 WBC (Bld) 1.5 % 0-5 [facility] Work Phone: Glucose [Mass/Vol] 107 mg/dL 74-106 [facility] Work Phone: Comment on above: Fasting Glucose resu lt from 100 to 125 mg/dL suggests IMPAIRED HOMEOSTASIS per A.D.A. criteria. Neutrophils (Bld) [#/Vol] 3.6 10*3/uL 2.0-7.7 [facility] Work Phone: Neutrophils/100 WBC (Bld) 68.4 % 47-70 [facility] Work Phone: [phone] Potassium [Moles/Vol] 4.0 mmol/L 3.5-5.1 [facility] Work Phone: Protein [Mass/Vol] 7.5 g/dL 6.4-8.2 [facility] Work Phone: Sodium [Moles/Vol] 139 mmol/L 136-145 [facility] Work Phone: Triglyceride [Mass/Vol] 111 mg/dL <199 [facility] Work Phone: Comment on above: The drugs N-Acetylcy steine and Metamizole may falsely depress this assay.Serum Triglycerides Reference Interval Normal <150 mg/dL Borderline high 150 - 199 mg/dL High 200 - 499 mg/dL Very High > or = 500 mg/dL WBC (Bld) [#/Vol] 5.3 10*3/uL 4.4-11.0 [facility] Work Phone: Blood erythrocytes count (nu mber/volume)on 11-19-2021 RBC (Bld) [#/Vol] 4.86 10*6/uL 4.6-6.2 [facility] Work Phone: Blood hemoglobin measurement (mass/volume)on 11-19-2021 Hemoglobin (Bld) [Mass/Vol] 15.4 g/dL 13.0-16.5 [facility] Work Phone: Blood lymphocytes/100 leukoc yteson 11-19-2021 Lymphocytes/100 WBC (Bld) 19.3 % 19-41 [facility] Work Phone: Blood monocytes/100 leukocyt eson 11-19-2021 Monocytes/100 WBC (Bld) 9.5 % 0-10 [facility] Work Phone: Blood platelet mean volumeon 11-19-2021 Platelet mean volume (Bld) [Entitic vol] 9.7 fL 6.2-12.0 [facility] Work Phone: Determination of erythrocyte mean corpuscular volume (MCV)on 11-19-2021 MCV (RBC) [Entitic vol] 92.8 fL 80-94 [facility] Work Phone: Erythrocyte sedimentation ra clinton 11-19-2021 ESR (Bld) [Velocity] 22 mm/h 0-20 [facility] Work [facility]: Hematocrit Auto (Bld) [Volum e fraction]on 11-19-2021 Hematocrit (Bld) [Volume fraction] 45.1 % 40-54 [facility] Work Phone: Laboratory - Chemistry and C hemistry - challengeon 11-19-2021 ALP [Catalytic activity/Vol] 61 U/L 45-117 [facility] Work Phone: ALT [Catalytic activity/Vol] 27 U/L 16-61 [facility] Work Phone: CO2 [Moles/Vol] 24.0 mmol/L 21.0-32.0 [facility] Work Phone: Globulin (S) [Mass/Vol] 3.6 g/dL 2.2-4.2 [facility] Work Phone: Urea nitrogen/Creatinine [Mass ratio] 10.6 mg/mg 10-20 [facility] Work Phone: Laboratory - Hematology and Cell countson 11-19-2021 Erythrocyte distribution width (RBC) [Entitic vol] 44.2 fL 35.1-43.9 [facility] Work Phone: Erythrocyte distribution width (RBC) [Ratio] 13.0 % 11.6-14.6 [facility] Work Phone: Immature granulocytes/100 WBC (Bld) 0.400 % 0.0-0.9 [facility] Work Phone: Comment on above: IG% - Immature Granu locytes (promyelocytes, myelocytes and metamyelocytes) > 1% indicates that a LEFT SHIFT is Present. MCH (RBC) [Entitic mass] 31.7 pg 27.0-32.0 [facility] Work Phone: Nucleated RBC/100 WBC (Bld) [Ratio] 0 % 0-5 [facility] Work Phone: MCHC Auto (RBC) [Mass/Vol]on 11-19-2021 MCHC (RBC) [Mass/Vol] 34.1 g/dL 32-36 [facility] Work Phone: No Panel Informationon 11-19 Estimated GFR (MDRD) Amer 66 mL/min >60 [facility] Work Phone: Comment on above: GFR Calc Estimated GFR (MDRD) Non-Af Amer 55 mL/min >60 [facility] Work Phone: Comment on above: Non- GFR Calc Homocysteine 14.8 umol/L 3.2-10.7 [facility] Work Phone: Troponin I High Sensitivity 4 pg/mL 3.0-78.0 [facility] Work Phone: Comment on above: Please Note: New Nneka t Units and Gender Specific Reference Ranges. For more information see Policy Stat Procedure [place] High Sensitivity Troponin (TNIH) and attachments. Platelets bldon 11-19-2021 Platelets (Bld) [#/Vol] 238 10*3/uL 150-450 [facility] Work Phone: Serum or plasma albumin brad urement (mass/volume)on 11-19-2021 Albumin [Mass/Vol] 3.9 g/dL 3.2-5.0 [facility] Work Phone: Serum or plasma albumin/glob ulin mass ratioon 11-19-2021 Albumin/Globulin [Mass ratio] 1.1 {ratio} 0.9-2.4 [facility] Work Phone: Serum or plasma calcium brad urement (mass/volume)on 11-19-2021 Calcium [Mass/Vol] 9.4 mg/dL 8.5-10.1 [facility] Work Phone: Serum or plasma cholesterol in HDL measurement (mass/volume)on 11-19-2021 Cholesterol in HDL [Mass/Vol] 36 mg/dL >40 [facility] Work Phone: Comment on above: The drugs N-Acetylcy steine and Metamizole may falsely depress this assay. Reference Range HDL <40 mg/dL Low HDL Cholesterol HDL >or= 60 mg/dL High HDL Cholesterol Serum or plasma cholesterol in VLDL measurement (mass/volume)on 11-19-2021 Cholesterol in VLDL [Mass/Vol] 22 mg/dL 5-40 [facility] Work Phone: Serum or plasma creatinine m easurement (mass/volume)on 11-19-2021 Creatinine [Mass/Vol] 1.42 mg/dL 0.70-1.30 [facility] Work Phone: Comment on above: The validity of the calculated GFR & GFRAA in patients over 70 years has not been determined. Clinical correlation is essential. Serum or plasma low density lipoprotein (LDL) cholesterol measurement (mass/volume)on 11-19-2021 Cholesterol in LDL [Mass/Vol] 124 mg/dL 0-130 [facility] Work Phone: Serum or plasma urea nitroge n measurement (mass/volume)on 11-19-2021 Urea nitrogen [Mass/Vol] 15 mg/dL 7-18 [facility] Work Phone: Thin prep Papanicolaou smear with manual screeningon 11-19-2021 Thin prep Papanicolaou smear with manual screening 14 U/L 15-37 [facility] Work Phone: Thin prep Papanicolaou smear with manual screening 6 5-15 [facility] Work Phone: Basophil percentageon 2021 Bilirubin [Mass/Vol] 0.30 mg/dL 0.20-1.00 [facility] Work Phone: Comment on above: For patients on eltr ombopag therapy, use of Dimension [place] TBIL is not recommended. Cholesterol [Mass/Vol] 189 mg/dL <200 [facility] Work Phone: Comment on above: <200 mg/dL Desirable 200-240 mg/dL Borderline >240 mg/dL High Risk Protein [Mass/Vol] 7.4 g/dL 6.4-8.2 [facility] Work Phone: Triglyceride [Mass/Vol] 95 mg/dL <199 [facility] Work Phone: Comment on above: The drugs N-Acetylcy steine and Metamizole may falsely depress this assay.Serum Triglycerides Reference Interval Normal <150 mg/dL Borderline high 150 - 199 mg/dL High 200 - 499 mg/dL Very High > or = 500 mg/dL Direct bilirubinon 2 Bilirubin.direct [Mass/Vol] 0.12 mg/dL 0.00-0.30 [facility] Work Phone: Laboratory - Chemistry and C hemistry - challengeon 11-18-2021 ALP [Catalytic activity/Vol] 55 U/L 45-117 [facility] Work Phone: ALT [Catalytic activity/Vol] 27 U/L 16-61 [facility] Work Phone: Globulin (S) [Mass/Vol] 3.5 g/dL 2.2-4.2 [facility] Work Phone: Serum or plasma albumin brad urement (mass/volume)on 11-18-2021 Albumin [Mass/Vol] 3.9 g/dL 3.2-5.0 [facility] Work Phone: Serum or plasma cholesterol in HDL measurement (mass/volume)on 11-18-2021 Cholesterol in HDL [Mass/Vol] 38 mg/dL >40 [facility] Work Phone: Comment on above: The drugs N-Acetylcy steine and Metamizole may falsely depress this assay. Reference Range HDL <40 mg/dL Low HDL Cholesterol HDL >or= 60 mg/dL High HDL Cholesterol Serum or plasma cholesterol in VLDL measurement (mass/volume)on 11-18-2021 Cholesterol in VLDL [Mass/Vol] 19 mg/dL 5-40 [facility] Work Phone: Serum or plasma low density lipoprotein (LDL) cholesterol measurement (mass/volume)on 11-18-2021 Cholesterol in LDL [Mass/Vol] 132 mg/dL 0-130 [facility] Work Phone: Thin prep Papanicolaou smear with manual screeningon 11-18-2021 Thin prep Papanicolaou smear with manual screening 19 U/L 15-37 [facility] Work Phone: BMPon 10-28-2019 Anion gap [Moles/Vol] 7 mmol/L Normal 5-16 [facility] Comment on above: Order Comment: Campu s: M Performed By: #### L 500.88141, L500.19077 #### [facility] [address] [place] [address] Calcium [Mass/Vol] 9.1 mg/dL Normal 8.5-10.1 [facility] Comment on above: Order Comment: Campu s: M Performed By: #### L 500.33867, L500.11257 #### [facility] [address] [place] [address] Chloride [Moles/Vol] 107 mmol/L Normal 98-107 [facility] Comment on above: Order Comment: Campu s: M Performed By: #### L 500.43517, L500.56942 #### [facility] [address] [place] [address] CO2 [Moles/Vol] 26 mmol/L Normal 21-32 [facility] Comment on above: Order Comment: Campu s: M Performed By: #### L 500.08628, L500.99588 #### [facility] [address] [place], [place] [id number] Creatinine [Mass/Vol] 1.030 mg/dL Normal 0.670- 1.17 0 [facility] Comment on above: Order Comment: Campu s: M Result Comment: Ally ents receiving either N-Acetylcysteine (NAC) or Metamizole prior to venipuncture, may have falsely depressed results. Performed By: #### L 500.73576, L500.55802 #### [facility] [place] [address] Glucose [Mass/Vol] 88 mg/dL Normal 70-100 [facility] Comment on above: Order Comment: Campu s: M Result Comment: 70-1 00- Normal Fasting; 100-125 Impaired Fasting; greater than 126 on more than one result- Diabetes. ADA guidelines. Results may be falsely elevated after the administration of Sulfapyridine. Results may be falsely depressed after the administration of Sulfasalazine. Performed By: #### L 500.15128, L500.89045 #### [facility] [address] [place] [address] Potassium [Moles/Vol] 4.0 mmol/L Normal 3.5-5.1 [facility] Comment on above: Order Comment: Campu s: M Performed By: #### L 500.15908, L500.78536 #### [facility] [address] [place] [address] Sodium [Moles/Vol] 141 mmol/L Normal 136-145 [facility] Comment on above: Order Comment: Campu s: M Performed By: #### L 500.65776, L500.91430 #### [facility] [address] [place] [address] Urea nitrogen [Mass/Vol] 9 mg/dL Normal 7-26 [facility] Comment on above: Order Comment: Campu s: M Performed By: #### L 500.93903, L500.95999 #### [facility] [address] [place] [address] Urea nitrogen/Creatinine [Mass ratio] 9 mg/mg Low 15-24 [facility] Comment on above: Order Comment: Campu s: M Performed By: #### L 500.64265, L500.70983 #### [facility] [address] [place] [address] CBCon 10-28-2019 Erythrocyte distribution width (RBC) [Ratio] 13.3 % Normal 11-14.5 [facility] Comment on above: Order Comment: Campu s: M Performed By: #### L 200.84598 #### [facility] [address] [place] [address] Hematocrit (Bld) [Volume fraction] 47.2 % Normal 41.0-53.0 [facility] Comment on above: Order Comment: Campu s: M Performed By: #### L 200.56016 #### [facility] [address] [place] [address] Hemoglobin (Bld) [Mass/Vol] 16.2 g/dL Normal 13.5-17.5 [facility] Comment on above: Order Comment: Campu s: M Performed By: #### L 200.87984 #### [facility] [address] [place] [address] MCHC (RBC) [Mass/Vol] 34.3 g/dL Normal 32.0-36.0 [facility] Comment on above: Order Comment: Campu s: M Performed By: #### L 200.35537 #### [facility] [address] [place] [address] MCV (RBC) [Entitic vol] 92.7 fL Normal 80.0-99.0 [facility] Comment on above: Order Comment: Campu s: M Performed By: #### L 200.87785 #### [facility] [address] [place] [address] Nucleated RBC/100 WBC (Bld) [Ratio] 0.0 % Normal Less than 1 [facility] Comment on above: Order Comment: Campu s: M Performed By: #### L 200.09634 #### [facility] [address] [place], [place] [id number] Platelet mean volume (Bld) [Entitic vol] 9.6 fL Normal 9.4-12.4 [facility] Comment on above: Order Comment: Campu s: M Performed By: #### L 200.66703 #### [facility] [address] [place] [address] Platelets (Bld) [#/Vol] 199 K/CU MM Normal 150-450 [facility] Comment on above: Order Comment: Campu s: M Performed By: #### L 200.77831 #### [facility] [address] [place], [place] [id number] RBC (Bld) [#/Vol] 5.09 M/CU MM Normal 4.50-6.00 [facility] Comment on above: Order Comment: Campu s: M Performed By: #### L 200.96785 #### [facility] [address] [place] [address] WBC (Bld) [#/Vol] 5.1 K/CUMM Normal 4.5-11.0 [facility] Comment on above: Order Comment: Campu s: M Performed By: #### L 200.73233 #### [facility] [address] [place] [address] GFR ESTon 10-28-2019 IF AMER Greater than 60 Normal [facility] Comment on above: Order Comment: Campu s: M Performed By: #### L 500.37810, L500.96423 #### [facility] [address] [place] [address] IF non-AFR AMER Greater than 60 Normal [facility] Comment on above: Order Comment: Campu s: M Performed By: #### L 500.95345, L500.08716 #### [facility] [address] [place], [place] [id number] HP.IMS.CONon 10-28-2019 CONSULTATION-H&P Normal [facility] HP.IMS.CON [facility] Patient Name: ARYAN ROBERTS [address] [place] [address] Date of : [address] [place] [address] Unit Number: [id number] CONSULTATION-HandP Patient Status: [facility] Attending Doctor: Issa Menard MD Service Date: 10/28/19805 See Addendum History of Present Illness Reason for Consult Epiploic appendagitis History of Present Illness Patient is a pleasant 54-year-old male who had some bright red blood per rectum last summer in [place] and had a CT scan in June of this year that revealed an inflamed epiploic appendage in the left lateral abdominal wall. Patient failed multiple courses of antibiotics as well as a colonoscopy patient now presents for robotic assisted left hemicolectomy and stents placed preoperatively. Past Medical/Surgical Hx Past Medical History Acid reflux, arthritis, back injury, heart attack 2016, hypertension, Past Surgical History Colonoscopy 2007 and October 2019, PTCA stent placement June 2016 Allergies/Home Medications Allergies Coded Allergies: ACETAMINOPHEN (From VICODIN) (Mild, ITCHING 10/24/19) HYDROCODONE (From VICODIN) (Mild, ITCHING 10/24/19) Home Medications Aspirin* (Aspir 81 MG Tab*) 81 MG TABLET. 81 MG PO QDAYWM, Ref 0 (Reported) LAST DOSE 10/22/[address] CORDOBA Entered as Reported by ARTIE ERICKSON on 10/24/191520 Last Action: Reviewed on 10/28/19722 by MARILYNN MONTGOMERY Clopidogrel Bisulfate* (Plavix 75MG Tab*) 75 MG TABLET 75 MG PO QDAY, Ref 0 (Reported) LAST DOSE 10/22/[address] CORDOBA Entered as Reported by ARTIE ERICKSON on 10/24/191521 Last Action: Reviewed on 10/28/19722 by MARILYNN MONTGOMERY Doxazosin Mesylate* (Cardura 4MG Tab*) 4 MG TABLET 4 MG PO QHS, Ref 0 (Reported) Entered as Reported by ARTIE ERICKSON on 10/24/191523 Last Action: Reviewed on 10/28/19722 by MARILYNN MONTGOMERY Losartan Potassium* (Cozaar 25MG Tab*) 25 MG TABLET 25 MG PO QDAY, Ref 0 (Reported) Entered as Reported by ARTIE ERICKSON on 10/24/191522 Last Action: Reviewed on 10/28/19722 by MARILYNN MONTGOMERY metoprolol TARTRATE* (Lopressor 25MG Tab*) 25 MG UDTAB 25 MG PO BID, Ref 0 (Reported) Entered as Reported by ARTIE ERICKSON on 10/24/19 1523 Last Action: Reviewed on 10/28/19722 by MARILYNN MONTGOMERY Omeprazole (PrilOSEC cap) 40 MG CAPSULE.DR 40 MG PO QDAY, Ref 0 (Reported) Entered as Reported by LIAM PALMA on 10/25/19 1138 Last Action: Reviewed on 10/28/19722 by MARILYNN MONTGOMERY Conclusion / Plan Conclusion 1. Epiploic appendagitis The plan at this time is to undergo resection and preoperative stent placement. ADDENDUM: ARYAN DELEON on 10/28/19 at 0842 Disclaimer This dictation was created using voice recognition software. Phonetic and/or minor grammatical errors may exist. eSign Date and Time Aryan Deleon MD Verified/Reviewed by 10/28/19 0842 [facility] OR.OPRPTon 10-28-2019 Operative Report [facility] OR.OPRPT [facility] Patient Name: ARYAN ROBERTS [facility] Date of : [address] [place] [address] Unit Number: [id number] Operative Report Patient Status: [facility] [place] Attending Doctor: Issa Menard MD Service Date: 10/28/19 1015 Operative Report Procedure Date: 10/28/19 Attending Physician: Issa Menard MD Procedure: Preoperative Diagnosis: [Chronic left lateral abdominal pain CT in June showed inflammation along the left colon probable inflamed epiploica] Postoperative Diagnosis: [Same] Adhesions along the left colon Subclinical left inguinal hernia indirect Procedure Type: [Laparoscopic, robotic abdominal exploration, lysis of adhesions along the descending colon ] Bilateral transversus abdominis plane blocks using 100 cc of 0.25% Marcaine with 1:200, 000 epinephrine Prior to the robotic case Dr. Deleon, urology, came and did cystoscopy and bilateral ureteral catheter placement the bilateral ureteral catheters were DC'd at the end of the case the Todd was DC'd prior to discharge home Anesthesia: [General Endo Zachariah/danika] assistant manager trainee: Fetty Estimated Blood Loss: [20 cc] IV Fluids: [1000 cc] Urine Output: [40 cc] OG output: Drops Complications: [None] Findings/Specimens: [Adhesions along the left gutter: To the abdominal wall] No specimens Procedure Details: [] Summary: []Preparation: Complete oral, and mechanical bowel prep( colonscopy 10/26) prior to coming in for surgery, ERAS guidelines, prior to induction intubation IV antibiotics knee-high SCDs, after induction and intubation rectal prep with water until clear then Betadine, OG tube after induction and intubation DC'd at the end of the case, ChloraPrep to the abdominal wall. Radiographs including CT was reviewed prior to the case and the films were on screening during the case. Bilateral ureteral lighted catheters/stents placed by [Dr. Deleon] urology. The stents were removed at the end of the case, the Todd was left in place. The Todd was removed prior to discharge home. The patient gives me permission to talk to [significant other (Suzie [phone] whom I called at the end of the case at 1230)] about the procedure. Consent: The indications, alternatives, risk and potential complications were discussed in great detail. The risk and potential complications include, but are not limited to, bleeding, infection, recurrence, need for further surgical medical treatment, risk of anesthesia (heart attack, stroke, blood clots, ), possibility of an ostomy, conversion laparoscopic robotic to open, leak of the anastomosis (where the bowel was put together) if performed, scar formation. Patient appeared understand, all questions were answered, and the patient asked us to proceed. After being induced, intubated, prepped and draped as described above, appropriate patient identification, safety check, and timeout according to WHO guidelines and white board in room was carried out. Abdominal access was obtained by Veress needle in the left subcostal region. Incision was made Veress needle was placed sip test was positive insufflation was carried out to 15 mmHg pressure without difficulty. An 8 mm, blunt, robotic port was placed in the right epigastric region. Under direct vision additional robotic and air seal port was placed in the following locations [left subcostal. And a 5 mm air seal right lateral.]. The right lower quadrant port site the 12 mm robotic port was placed. Brief exploration was carried out with [a small subclinical indirect left inguinal hernia was noted.] There were adhesions along the left gutter. Position was placed in Trendelenburg at [20] degrees and rotated to the right [10] degrees. The da Mariusz Xi robot was docked and instruments placed. Using sharp and blunt dissection with hemostasis maintained by monopolar electrocautery, and bipolar cautery. The left ureter was identified and preserved. The mobilization of the left colon was distally to the sigmoid colon. The left colon was mobilized to the splenic flexure. Careful exploration along the left gutter was carried out and except for the adhesions which were taken down I cannot locate any significant abnormalities. Under direct vision a aznizu-pp-nutji 0 PDS was placed in the right lower quadrant 12 mm port site. This was secured. Under direct vision bilateral transversus abdominis plane blocks were performed using a Veress needle. The skin at all sites were reapproximated using running 4-0 Monocryl and the skin was sealed with Dermabond. The patient was extubated at the end of the case, the OG tube was DC'd at the end of the case, the bilateral ureteral catheters were removed at the end of the case, the Todd was left in place as well as the knee-high SCDs. Summary: The patient tolerated the procedure well, was taken to PACU in good stable condition. CC: Cosme Berger MD Disclaimer This dictation was created using voice recognition software. Phonetic and/or minor grammatical errors may exist. eSign Date and Time Issa Menard MD Verified/Reviewed by 10/28/19 1709 [facility] Operative Report [facility] OR.OPRPT [facility] Patient Name: ARYAN ROBERTS [address] Date of : [address] [address] Unit Number: [id number] Operative Report Patient Status: REG [facility] [place] Attending Doctor: Issa Menard MD Service Date: 10/28/19 0842 Operative Report Procedure Date: 10/28/19 Attending Physician: Aryan Deleon MD Procedure: Preoperative Diagnosis: [] epiploic appendagitis Postoperative Diagnosis: [] Same Procedure Type: [] Cystoscopy and bilateral stent placement Anesthesia: [] General Estimated Blood Loss: [] Minimal IV Fluids: [] Urine Output: [] Complications: [] Findings/Specimens: [] Procedure Details: [] The patient was taken operative see given anesthetic lines were placed patient dorsolithotomy prepped and draped after adequate esthesia patient insertion of the cystoscope the patient had moderate amount of BPH median lobe and obstruction and a friable prostate the bladder was inspected with no exophytic lesions masses or growths however there is a slight amount of hematuria even just with passing the scope the patient then had the Glidewire placed up the left ureteral orifice. And then over this the open- ended lighted stent catheter was placed immediately there was some blood returning from the open-ended catheter from the kidney this is a bit of concern. The patient then had a Glidewire placed up the right ureteral orifice and the open-ended catheter lighted stent was placed up there with these being held in place the patient then had the fibers advanced into the open-ended catheters. The patient had the secured a 20 Swiss coud catheter was placed and there was a diminishment in hematuria however the left ureteral open-ended stent still was bloody. The patient does have a moderate amount of BPH and may need some monitoring postoperatively for the potential of urinary retention. We will have to follow him up as an outpatient. Summary: [] Disclaimer This dictation was created using voice recognition software. Phonetic and/or minor grammatical errors may exist. eSign Date and Time Aryan Deleon MD Verified/Reviewed by 10/28/19 0845 [facility] -------- -------- Patient: ARYAN ROBERTS -------- SPECIMEN: [id number] Collection Date: 10/27/19 Received: 10/27/19 Status: LUBA Yu Dr.: Issa Menard MD Ph# Othr. Dr.: Cosme Berger MD Material for Examination: A RECTAL SIGMOID COLON POLYP X3 B SIGMOID COLON POLYP PRE-OP DIAGNOSIS: EPIPLOIC APPENDAGITIS POST-OP DIAGNOSIS: POLYPS SURGICAL PROCEDURE: COLONOSCOPY DIAGNOSIS A. Rectal sigmoid colon polyp X3, polypectomy: Tubulovillous adenoma, two Hyperplastic polyp, one, with a few reactive lymphoid aggregates. B. Sigmoid colon polyp, polypectomy: Tubular adenoma, one COMMENT No high-grade dysplasia is found in the sections examined of the entirely submitted polyps. GROSS DESCRIPTION A. The specimen is received in formalin and labeled with the patient's name, ID and designated rectosigmoid colon polyp x3, are 3 vazquez portions of tissue, 0.3 x 0.1 x 0.1 cm and 0.8 x 0.3 x 0.1 cm. The tissue is somewhat friable. Entirely submitted in cassette A1. B. The specimen is received in formalin and labeled with the patient's name, ID and designated sigmoid colon polyp, is a single vazquez-red portion of tissue, 0.9 x 0.1 x 0.1 cm. Entirely submitted in cassette B1. MICROSCOPIC DESCRIPTION Four Jason stained slides examined. COPIES TO: Cosme Berger MD, Kirby L MD Signed Verified/Reviewed by JESUS AVELAR MD 10/28/19 This dictation was created using voice recognition software. Phonetic and/or minor grammatical errors may exist. -------- [facility] NAME: ARYAN ROBERTS Pathology and Laboratory Medicine UNIT#: [id number] LOC: [facility] Bathroom Tiling Professional: Jemma Doherty M.D. [facility]#: [id number] [facility] 67 AGE/SEX: 54/M ORD.Issa Wolfe MD END OF REPORT Normal [facility] [place] CT ABD/PELV W ORALANDIV CONT Chrissy 10-17-2019 CT ABD/PELV W ORALANDIV CONTRAST CT ABD/PELV W ORAL&IV CONTRAST Ordering Physician: Issa Menard MD 10/17/2019 2:[address] ABDOMEN AND PELVIS WITH CONTRAST Clinical Statement: Abdominal pain, rectal bleeding, patient indicates left lower quadrant and right flank pain Comparison: CT abdomen and pelvis June 08, 2019 from [facility] FINDINGS: Following the uneventful administration of 100 cc Isovue 300 and oral contrast, routine CT of the abdomen and pelvis was performed. The heart size is normal. The lung bases are clear. The distal esophagus is unremarkable. The liver is diffusely hypoattenuating with regional areas of sparing near the gallbladder fossa and ruperto hepatis, compatible with hepatic steatosis. The gallbladder is incompletely distended without calcified gallstones. The bile ducts, pancreas, adrenal glands, and spleen are within normal limits. The kidneys are symmetric with mild bilateral chronic perinephric fat stranding. No concerning renal mass. There is a retroaortic left renal vein, a normal anatomic variation. The abdominal aorta is moderately atherosclerotic but nonaneurysmal. No retroperitoneal lymphadenopathy. There is no bowel obstruction, free air, or ascites. The stomach is incompletely distended but grossly unremarkable. The duodenum and small bowel appears within normal limits. The appendix is normal. The region of the terminal ileum is unremarkable. There is mild diverticulosis of the sigmoid and descending colon. No acute diverticulitis. The rectum is unremarkable. Prior epiploic appendagitis referrable to the descending colon has resolved. The prostate gland is nonenlarged with central calcification. The bladder is collapsed. There is no pelvic mass, free fluid, or pelvic lymphadenopathy. There is a tiny fat-containing periumbilical hernia. There are no concerning or destructive bone lesions. There are mild degenerative changes of the lower thoracic and lumbar spine and both hips. IMPRESSION: No acute intra-abdominal or pelvic process. Interval resolved epiploic appendagitis of the descending colon. Mild diverticulosis without acute diverticulitis Hepatic steatosis ---- Electronic Signature on File ---- Signed By: Claudia Rico MD [email or web address] Dictated: 10/17/2019 3:21 PM Signed: 10/17/2019 3:28 PM Reported By: CLAUDIA RICO M.D. Signed By: CLAUDIA RICO M.D. [facility] MRI LUMBAR SPINE WO IVCONon 08-13-2017 MRI LUMBAR SPINE WO IVCON * * *Final Report* * *DATE OF EXAM: Aug 13 2017 11:27AM [id number] [id number] - MRI LUMBAR SPINE WO IVCON / REASON: multiple diagnoses * * * * Physician Interpretation * * * * COMPARISONS: None.HISTORY: Lumbar radiculopathy radiating to right.TECHNIQUE: MRI lumbar spine without contrast.RESULT: Counting reference: For purposes of dictation inferior most lumbar intervertebral disk is taken as L5-S1 and prior to surgery correlate with plain radiograph. No structural anomalies.MRI LUMBAR SPINE: Decreased disc height and signal indicating desiccation with annular tear and small protrusion at L5-S1 indicating degeneration without any central canal compromise. Normal alignment, vertebral height, marrow signal, canal, thecal sac, cord signal/caliber and cauda equina. No fracture or dislocation. Normal soft tissue planes. Patent flow voids.L1 -- 2: Patent central canal. Patent bilateral neural foramina.L2 -- 3: Patent central canal. Patent bilateral neural foramina.L3 -- 4: Patent central canal. Patent bilateral neural foramina.L4 -- 5: Patent central canal. Patent bilateral neural foramina.L5 -- S1: Disc bulge with small central annular tear. Patent central canal and bilateral neural foramina.IMPRESSION: Unremarkable lumbar spine MRI.Ventilator Specialist: PSCB Transcribe Date/Time: Aug 13 2017 11:40ADictated by : NURYS JACK MDThis examination was interpreted and the report reviewed and electronically signed by: NURYS JACK MD on Aug 13 2017 11:42AM [id number] [facility] 08-13-2017 PROGRESS HNO ID: [id number] thor: Amy PadillaRt) Jennyfer Sandhu: (none)Author Type: TechnicianType: Progress NotesFiled: 08/13/2017 11:53 AMNote Text: Radiology Service Progress NotePATIENT NAME: Aryan PollardN: [id number] OF SERVICE: August 13, 2017TIME: 11:53 AMPATIENT IDENTITY VERIFICATION COMPLETED USING TWO (2) METHODS: Patientconfirmed name verbally and Date of .PATIENT GENDER DATA: MalePATIENT RELEVANT IMPLANT DATA REVIEWED: Not ApplicableRADIOLOGY DEPARTMENT: General X-ray: Exam(s) Completed: Spine X-Ray(s):Thoracic and Lumbar AP / LAT / L5-S1 / FLEX-EXTPERIPHERAL IV DATA: Not applicableSIGNED BY: Chito Ku 2017 11:53 AM [facility] PROGRESS HNO ID: [id number] thor: Lucy Marks RtService: (none)Author Type: (none)Type: Progress NotesFiled: 08/13/2017 11:36 AMNote Text: Radiology Service Progress NotePATIENT NAME: Aryan PollardN: [id number] OF SERVICE: August 13, 2017TIME: 11:36 AMPATIENT IDENTITY VERIFICATION COMPLETED USING TWO (2) METHODS: Patientconfirmed name verbally and Date of .PATIENT GENDER DATA: MalePATIENT RELEVANT IMPLANT DATA REVIEWED: YesRADIOLOGY DEPARTMENT: MR; Exam(s) Completed: Spine: Lumbar spinePERIPHERAL IV DATA: Not applicableSIGNED BY: Lucy Marks [facility] 2017 11:36 AM Normal [facility] XR LUMBAR 4V AP/LAT/ FLEX/EX Ton 08-13-2017 XR LUMBAR 4V AP/LAT/ FLEX/EXT * * *Final Report* * *DATE OF EXAM: Aug 13 2017 11:52AM [id number] - XR LUMBAR 4V AP/LAT/ FLEX/EXT / REASON: multiple diagnoses * * * * Physician Interpretation * * * * EXAM: LUMBAR SPINE, 3 VIEWS; THORACIC SPINE, 3 VIEWSCLINICAL: 52-year-old male with spondylosisTECHNIQUE: AP, lateral flexion-extension ; AP, lateral, swimmers view thoracic spineCOMPARISON: NoneRESULTS: Counting reference: The first rib-bearing vertebral bodies considered T1. The iliac crest level is considered L4.L5 or the first vertebrae proximal to the sacrum is considered L5. 12 thoracic and 5 lumbar vertebrae. Lateral bridging osteophytes in the lower thoracic spine on the right. Degenerative disc disease with disc space during throughout the thoracic spine. Vertebral bodies are intact.Lumbar vertebrae are intact. Pedicles are intact. Mild posterior displaced narrowing at all lumbar levels and mild narrowing of L5/S1 disc space. No evidence of instability with flexion-extension. Osteophytes anteriorly throughout the lumbar spine. Facet degenerative changes of L2/L3 through L5/S1. Faint vascular calcifications are present.IMPRESSION: DEGENERATIVE DISC DISEASE THROUGHOUT THE THORACIC AND LUMBAR SPINE. DEGENERATIVE FACET DISEASE IN THE LUMBAR SPINE.Ventilator Specialist: PSCB Transcribe Date/Time: Aug 13 2017 1:18PDictated by : JEAN LEROY MDThis examination was interpreted and the report reviewed and electronically signed by: JEAN LEROY MD on Aug 13 2017 1:21PM [id number] Normal [facility] XR THORACIC 3V AP/LAT/SWIMME RSon 08-13-2017 XR THORACIC 3V AP/LAT/SWIMMERS * * *Final Report* * *DATE OF EXAM: Aug 13 2017 11:52AM [id number] - XR THORACIC 3V AP/LAT/SWIMMERS / REASON: multiple diagnoses * * * * Physician Interpretation * * * * EXAM: LUMBAR SPINE, 3 VIEWS; THORACIC SPINE, 3 VIEWSCLINICAL: 52-year-old male with spondylosisTECHNIQUE: AP, lateral flexion-extension ; AP, lateral, swimmers view thoracic spineCOMPARISON: NoneRESULTS: Counting reference: The first rib-bearing vertebral bodies considered T1. The iliac crest level is considered L4.L5 or the first vertebrae proximal to the sacrum is considered L5. 12 thoracic and 5 lumbar vertebrae. Lateral bridging osteophytes in the lower thoracic spine on the right. Degenerative disc disease with disc space during throughout the thoracic spine. Vertebral bodies are intact.Lumbar vertebrae are intact. Pedicles are intact. Mild posterior displaced narrowing at all lumbar levels and mild narrowing of L5/S1 disc space. No evidence of instability with flexion-extension. Osteophytes anteriorly throughout the lumbar spine. Facet degenerative changes of L2/L3 through L5/S1. Faint vascular calcifications are present.IMPRESSION: DEGENERATIVE DISC DISEASE THROUGHOUT THE THORACIC AND LUMBAR SPINE. DEGENERATIVE FACET DISEASE IN THE LUMBAR SPINE.Ventilator Specialist: PSCB Transcribe Date/Time: Aug 13 2017 1:18PDictated by : JEAN LEROY MDThis examination was interpreted and the report reviewed and electronically signed by: JEAN LEROY MD on Aug 13 2017 1:21PM [id number] Normal [facility] CNOVon 08-05-2017 CNOV Office Visit (SPNMMN) ----AMRIDAARYAN ([id number]) 1965 MDate Time Provider Department08/05/17 9:00 AM MAEVE MEZA SPNMMN During your visit today, we recorded the following information about you: Pulse Respiration Blood pressure Weight 65/minute 18/minute 125/83 96.6 kg Height 1.702 Sridevi Sr Ma 08/05/2017 8:52 AM SignedAryan Roberts is a 52 year old male who presents with the complaint of neck painthat started 2 years ago. The patient relates their pain pain to / mechanismof injury was N/A.The pain is located in the middle and right side of neck and radiates down totailbone , constant described as aching, burning, cramping, sharp, shootingand throbbing, and rated as moderate and severe, with radiation.They have tried: Ice No , Heat: Yes, NSAIDS Yes (medication(s) tried Aleve),Acetaminophen Yes, Physical Therapy Yes without temporary relief.Has the patient had previous spine surgery? NoAre there outside records for this visit? No.Frannie Meza MD 08/07/2017 10:31 AM Signed[facility] SPINE CENTERDakim Roberts is a 52 year old male who presents with the chief complaint(s) ofpain in the back right leg pain sitting right leg numbness more than 2 years.chronic recently seen rheumatology referred to spine.chronic back pain more than 20 years. last 5 years symptoms got worse. worsewith sitting. history of right shoulder surgery x 5 was told need rightshoulder reverse replacement. multiple medical issues.was diagnosed with RA/fibromyalgia/OA. but blood test negative. was seen by Dr.mark paula did back epidural I injections did not help for pain. also neckpain thoracic pain. chronic pain several years. says he need to sleep in fetalposition. s/p cardiac stent placement in 06/2016 and [id number]. he is following withcardiology. roberta Wolf sev CTS pending surgery in 12/2017 as he is on Plavix and ASA. s/p aorticaneurysm surgery. also.tried methotrexate and did not helps.was told to try humira?He was seen as a new patient. These symptoms have been present for ANDgt;1year(s). The onset of symptoms was gradual and progressive. He states thepain is constant and moderate. The pain is described as aching, moderate,sharp, soreness, stiff, tenderness and tingling. He reports no spinal surgery.Over a 24-hour period of time, the pain is worst across the whole day and whenperforming certain activities. The patient states the pain is exacerbated byevery thing. The patient notes, to date, that the pain is reduced by none. Upto now, treatments have included: hot packs, physical therapy andmanipulation. The patient's pain distribution is present in a ratio of 50%spine / 50 % limbPositive ANDquot;red flagsANDquot;: age greater than 50 years. Negative ANDquot;redflagsANDquot; include: fevers, night pain, bowel incontinence, bladderincontinence, persistent adolescent back pain, diagnosis of cancer, significantspinal trauma, and weight loss.In the home/vocational setting, the patient relates a daily activity level thatwas fully independent at the community level with assistive devicesVocational questioning reveals that the patient is off work due to multiplemedical issues. 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 Nodizziness, fainting, orthostasis, vision or language changes. No shortness ofbreath, chest pain, nausea, vomiting or diarrhea.ALLERGIESAllergen Reactions- Vicodin [Hydrocodon* ItchingCurrent Outpatient Prescriptions:adalimumab (HUMIRA) 40 mg/0.8 mL injection 0.8 mL every 2 weeks. 1 syringe(40mg/0.8ml) every other week.TRAZODONE HCL (TRAZODONE ORAL) Take 75 mg by mouth as directed.clopidogrel (PLAVIX) 75 mg tablet Take 75 mg by mouth once daily.SUMAtriptan (IMITREX) 50 mg tablet Take 50 mg by mouth as needed.tiZANidine HCl 4 mg capsule Take 4 mg by mouth as directed.SHARPS CONTAINER misc Sharps container for dispose of needles.alcohol swabs padm Apply 1 application to affected area once each week.aspirin, enteric coated (ASPIRIN, ENTERIC COATED) 81 mg EC tablet Take 81 mg bymouth as needed.losartan (COZAAR) 25 mg tablet Take 25 mg by mouth as directed.No current facility-administered medications for this visit.Medical history was reviewed and acknowledged.PAST MEDICAL HISTORYDiagnosis Date- CAD (coronary artery disease)- HTN (hypertension)- NH (myocardial infarction) (HCC)The patient's surgical history was reviewed and acknowledged.PAST SURGICAL HISTORYProcedure Laterality Date- ARTHROSCOPY KNEE; W/ FIXATION- PAST SURGICAL HISTORY OF right shoulder surgery x 5- PAST SURGICAL HISTORY OF right wrist surgery x 5- PAST SURGICAL HISTORY OF left wrist surgery- PAST SURGICAL HISTORY OF 06/2016 heart surgery with stents x 3-RCA,prox RCA, synergy stentsFamily history was reviewed and acknowledged.Review of social history and habits notes that He :Social History Marital status: Single Spouse name: Years of education: Number of children:Social History Main Topics Smoking status: Never Smoker Smokeless status: Never Used Alcohol use: No Drug use: Noreviewed from nurse note and agree.EXAM:Vital Signs reviewed: BP 125/83 Pulse 65 Resp 18 Ht 170.2 cm (5'7ANDquot;) Wt 96.6 kg (213 lb) BMI 33.36 kg/m2 . Skin exam revealed no openlesions, the surgical incision is clean dry and intact. HEENT reveals noenlarged cervical lymph nodes or palpable thyroid nodules. Brief vascularevaluation notes no swelling, redness or heat of the distal limbs. Peripheralpulses are present and symmetric. Gait is antalgic right side. In theappendicular skeleton, range restrictions, effusion, ligamentous laxity andsynovitis are absent. limited ROM alile shoulder and allie hip pain. Affectdemonstrated is appropriate / social interaction preserved.Spinal curvature evaluation notes no abnormalities. Neck range is adequate insix directions. Spurling sign is negative. In muscle segments C-5 throughT-1 and L2 through S1 there is no apparent weakness. Heel and toe walk arenormal. Focal sensory deficits are absent. Nerve root tension signs areabsent. Lumbar range of motion is adequate in all planes. Painful arc ofmotion is present in low back. Kyle test was negative. Muscle examnoted no atrophy, fasciculation or dystonia. Deep palpation tenderness waspresent over the Bilateral lumbar paraspinal muscles. Muscle stretchreflexes are present and symmetric throughout.DIAGNOSTIC DATA:none related to spine.PROVISIONAL DIAGNOSIS: Mechanical back pain, lumbar spondylosis, sciatica.multiple medical issues. ? auto immune disorder. sciatica chronic pain. painlimiting functionPLAN:1. xray lumbar thoracic2. MR of lumbar3. exercise, try pool exercise.4. recheck in 1 month to prn after w/uPatient understands above plan; questions asked and answered. He was educatedregarding signs and symptoms that would indicate a serious change in theircondition, and instructed to seek care immediately should these arise. Patientagrees to plan as noted above.The majority of the visit was spent counseling and/or coordinating care for thepatient. Qpwb-gr-qaco time was 40 minutes.Maeve Meza, [facility]:Aryan Nina MD[address] [facility] [facility] [address]Uwarf: [phone]: [phone] Provider: AIDAN EDMONDSON [[id number]]Allergies As of Date: 08/05/2017 Noted Allergy ReactionVICODIN (HYDROCODONE-ACETAMINOPHE* 9 - ItchingDate Reviewed: 08/05/2017Reviewed by: Frannie Sr Ma - Fully AssessedReason for Visit: New Patient [172]Primary Visit Diagnosis:Lumbar spondylosis [M47.816] Other Visit Diagnoses:Sciatica of right side [M54.31] DDD (degenerative disc disease), lumbar [M51.36] Arthralgia, unspecified joint [M25.50]Order(s):XR LUMBAR MOTION 4V AP/LAT/ FLEX/EXT [[id number]] Order #: [id number] FUTURE XR THORACIC GENERAL 3V AP/LAT/SWIMMERS [[id number]] Order #: [id number] FUTURE MRI LUMBAR SPINE WO IVCON [[id number]] Order #: [id number] FUTUREPrescriptions as of 08/05/2017 Sig: ADALIMUMAB 40 MG/0.8 ML SUBCU* 0.8 mL every 2 weeks. 1 syrin* TRAZODONE ORAL Take 75 mg by mouth as direct* CLOPIDOGREL 75 MG TABLET Take 75 mg by mouth once aly* SUMATRIPTAN 50 MG TABLET Take 50 mg by mouth as needed. TIZANIDINE 4 MG CAPSULE Take 4 mg by mouth as directe* SHARPS CONTAINER Sharps container for dispose * ALCOHOL SWABS Apply 1 application to affect* ASPIRIN 81 MG TABLET,DELAYED * Take 81 mg by mouth as needed. LOSARTAN 25 MG TABLET Take 25 mg by mouth as direct*Problem List As Of Date 08/05/2017 Noted Resolved Rheumatoid arteritis [I00] INVALID FOR*07/22/2017Visit Notes:>> Frannie Sr Ma ThuAug 05, 2017 8:48 AM Status: SignedAryan Roberts is a 52 year old male who presents with the complaint of neckpain that started 2 years ago. The patient relates their pain pain to /mechanism of injury was N/A.The pain is located in the middle and right side of neck and radiates downto tailbone , constant described as aching, burning, cramping, sharp,shooting and throbbing, and rated as moderate and severe, with radiation.They have tried: Ice No , Heat: Yes, NSAIDS Yes (medication(s) triedAleve), Acetaminophen Yes, Physical Therapy Yes without temporaryrelief.Has the patient had previous spine surgery? NoAre there outside records for this visit? No.Frannie Sr MaDisposition: Return in about 2 months (around 10/03/2017).Follow-up and Disposition History RecordedEncounter Number: [id number] Status:Closed by MAEVE MEAZ MD on 08/07/17 Normal [facility] PROGRESSon 08-05-2017 PROGRESS HNO ID: [id number] thor: Maeve Burk: (none)Author Type: PhysicianType: Progress NotesFiled: 08/07/2017 10:31 AMNote Text:[facility] SPINE CENTERDakim Roberts is a 52 year old male who presents with the chief complaint(s)of pain in the back right leg pain sitting right leg numbness more than 2years. chronic recently seen rheumatology referred to spine.chronic back pain more than 20 years. last 5 years symptoms got worse.worse with sitting. history of right shoulder surgery x 5 was told needright shoulder reverse replacement. multiple medical issues.was diagnosed with RA/fibromyalgia/OA. but blood test negative. was seenby Dr. colton paula did back epidural I injections did not help forpain. also neck pain thoracic pain. chronic pain several years. says heneed to sleep in position. s/p cardiac stent placement in 06/2016 [id number]. he is following with cardiology. roberta Wolf sev CTS pending surgery in 12/2017 as he is on Plavix and ASA. s/paortic aneurysm surgery. also.tried methotrexate and did not helps.was told to try humira?He was seen as a new patient. These symptoms have been present for >1year(s). The onset of symptoms was gradual and progressive. He statesthe pain is constant and moderate. The pain is described as aching,moderate, sharp, soreness, stiff, tenderness and tingling. He reports nospinal surgery.Over a 24-hour period of time, the pain is worst across the whole day andwhen performing certain activities. The patient states the pain isexacerbated by every thing. The patient notes, to date, that the pain isreduced by none. Up to now, treatments have included: hot packs,physical therapy and manipulation. The patient's pain distribution ispresent in a ratio of 50% spine / 50 % limbPositive red flags: age greater than 50 years. Negative red flagsinclude: fevers, night pain, bowel incontinence, bladder incontinence,persistent adolescent back pain, diagnosis of cancer, significant spinaltrauma, and weight loss.In the home/vocational setting, the patient relates a daily activity levelthat was fully independent at the community level with assistive devicesVocational questioning reveals that the patient is off work due tomultiple medical issues. 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 No dizziness, fainting, orthostasis, vision or language changes. Noshortness of breath, chest pain, nausea, vomiting or diarrhea.ALLERGIESAllergen Reactions- Vicodin [Hydrocodon* ItchingCurrent Outpatient Prescriptions:adalimumab (HUMIRA) 40 mg/0.8 mL injection 0.8 mL every 2 weeks. 1 syringe(40mg/0.8ml) every other week.TRAZODONE HCL (TRAZODONE ORAL) Take 75 mg by mouth as directed.clopidogrel (PLAVIX) 75 mg tablet Take 75 mg by mouth once daily.SUMAtriptan (IMITREX) 50 mg tablet Take 50 mg by mouth as needed.tiZANidine HCl 4 mg capsule Take 4 mg by mouth as directed.SHARPS CONTAINER misc Sharps container for dispose of needles.alcohol swabs padm Apply 1 application to affected area once each week.aspirin, enteric coated (ASPIRIN, ENTERIC COATED) 81 mg EC tablet Take 81mg by mouth as needed.losartan (COZAAR) 25 mg tablet Take 25 mg by mouth as directed.No current facility-administered medications for this visit.Medical history was reviewed and acknowledged.PAST MEDICAL HISTORYDiagnosis Date- CAD (coronary artery disease)- HTN (hypertension)- NH (myocardial infarction) (HCC)The patient's surgical history was reviewed and acknowledged.PAST SURGICAL HISTORYProcedure Laterality Date- ARTHROSCOPY KNEE; W/ FIXATION- PAST SURGICAL HISTORY OF right shoulder surgery x 5- PAST SURGICAL HISTORY OF right wrist surgery x 5- PAST SURGICAL HISTORY OF left wrist surgery- PAST SURGICAL HISTORY OF 06/2016 heart surgery with stents x 3-RCA,prox RCA, synergy stentsFamily history was reviewed and acknowledged.Review of social history and habits notes that He :Social History Marital status: Single Spouse name: Years of education: Number of children:Social History Main Topics Smoking status: Never Smoker Smokeless status: Never Used Alcohol use: No Drug use: Noreviewed from nurse note and agree.EXAM:Vital Signs reviewed: BP 125/83 Pulse 65 Resp 18 Ht 170.2 cm (5'7) Wt 96.6 kg (213 lb) BMI 33.36 kg/m2 . Skin exam revealed no openlesions, the surgical incision is clean dry and intact. HEENT reveals noenlarged cervical lymph nodes or palpable thyroid nodules. Briefvascular evaluation notes no swelling, redness or heat of the distallimbs. Peripheral pulses are present and symmetric. Gait is antalgicright side. In the appendicular skeleton, range restrictions, effusion,ligamentous laxity and synovitis are absent. limited ROM allie shoulder andbil hip pain. Affect demonstrated is appropriate / social interactionpreserved.Spinal curvature evaluation notes no abnormalities. Neck range isadequate in six directions. Spurling sign is negative. In musclesegments C-5 through T-1 and L2 through S1 there is no apparent weakness.Heel and toe walk are normal. Focal sensory deficits are absent. Nerveroot tension signs are absent. Lumbar range of motion is adequate in allplanes. Painful arc of motion is present in low back. Kyle testwas negative. Muscle exam noted no atrophy, fasciculation or dystonia.Deep palpation tenderness was present over the Bilateral lumbar paraspinalmuscles. Muscle stretch reflexes are present and symmetric throughout.DIAGNOSTIC DATA:none related to spine.PROVISIONAL DIAGNOSIS: Mechanical back pain, lumbar spondylosis, sciatica.multiple medical issues. ? auto immune disorder. sciatica chronic pain.pain limiting functionPLAN:1. xray lumbar thoracic2. MR of lumbar3. exercise, try pool exercise.4. recheck in 1 month to prn after w/uPatient understands above plan; questions asked and answered. He waseducated regarding signs and symptoms that would indicate a serious changein their condition, and instructed to seek care immediately should thesearise. Patient agrees to plan as noted above.The majority of the visit was spent counseling and/or coordinating carefor the patient. Orlg-me-isst time was 40 minutes.Maeve Meza, [facility]:Aryan Nina MD[address] [place] [address]Ydpnz: [phone]: [phone] Normal [facility] CNCOon 07-21-2017 CNCO Letter Kosta dee D.O.Department of Rheumatic and Immunologic Disease / [id number] [place], [place], [address]Lakstb: [phone]: [phone]: [phone] 2017Dakim RobertsYuliana Buchanan [place], [place] [address]VAU: 1965MRN: [id number] David:You will need to have blood work obtained 2 weeks after starting the newmedication, methotrexate. And then every month thereafter.Labs to be obtained include- complete metabolic panel (CMP)- complete blood count (CBC)- C-reactive protein (CRP)- sedimentation rate (WSR)This letter should serve as a lab order to have blood work obtained. Pleasebring this to a local laboratory and ask to have results faxed to the [facility].Sincerely,Aidan Edmondson D.O.(Electronically Signed to [employer]) Normal [facility] C-Reactive Proteinon 018 C reactive protein (CRP) 0.3 mg/dL Normal <0.9 [facility] Comment on above: Performed By: #### C BCDIF, WSR, CMP, CRP ####[place] [address] [place], [place] [phone] CBC and Differentialon 07-10 Abs Baso 0.03 k/uL Normal <0.11 [facility] Comment on above: Performed By: #### C BCDIF, WSR, CMP, CRP ####[place] [place], [place] [phone] Abs [place] 0.41 k/uL Normal <0.87 [facility] Comment on above: Performed By: #### C BCDIF, WSR, CMP, CRP ####[place] [place], [place] [phone] Abs Neut 3.91 k/uL Normal 1.45-7.50 [facility] Comment on above: Performed By: #### C BCDIF, WSR, CMP, CRP ####[address] [phone] Basophils/100 WBC Auto (Bld) 0.6 % Normal [facility] Comment on above: Performed By: #### C BCDIF, WSR, CMP, CRP ####[place] [address] [place] [phone] DTYPE Auto Diff Normal [facility] Comment on above: Performed By: #### C BCDIF, WSR, CMP, CRP ####[place] [address] [address] [phone] Eosinophils 0.07 10*3/uL Normal <0.46 [facility] Comment on above: Performed By: #### C BCDIF, WSR, CMP, CRP ####[place] [address] [address] [phone] Eosinophils/100 leukocytes 1.3 % Normal [facility] Comment on above: Performed By: #### C BCDIF, WSR, CMP, CRP ####[place] [address] [address] [place] [phone] Erythrocyte distribution width Auto Ratio (RBC) 13.0 % Normal 11.5-15.0 [facility] Comment on above: Performed By: #### C BCDIF, WSR, CMP, CRP ####[place] [address] [address] [phone] Erythrocytes (RBC) 5.51 10*6/uL Normal 4.20-6.00 [facility] Comment on above: Performed By: #### C BCDIF, WSR, CMP, CRP ####[place] [address] [address] [place] [phone] Erythrocytes (RBC) 0.0 /100 WBC Normal 0 [facility] Comment on above: Performed By: #### C BCDIF, WSR, CMP, CRP ####[place] [address] [address] [place] [phone] Erythrocytes (RBC) 10*6/uL Normal <0.01 [facility] Comment on above: Performed By: #### C BCDIF, WSR, CMP, CRP ####[place] [address] [address] [phone] Hematocrit (HCT) 50.6 % Normal 39.0-51.0 [facility] Comment on above: Performed By: #### C BCDIF, WSR, CMP, CRP ####[place] [address] [address] [place] [phone] Hemoglobin mass conc (Bld) 16.8 g/dL Normal 13.0-17.0 [facility] Comment on above: Performed By: #### C BCDIF, WSR, CMP, CRP ####[place] [address] [address] [phone] Lymphocytes 0.97 10*3/uL Low 1.00-4.00 [facility] Comment on above: Performed By: #### C BCDIF, WSR, CMP, CRP ####[place] [address] [address] [place] [phone] Lymphocytes/100 leukocytes 18.0 % Normal [facility] Comment on above: Performed By: #### C BCDIF, WSR, CMP, CRP ####[place] [address] [address] [place] [phone] MCH 30.5 pG Normal 26.0-34.0 [facility] Comment on above: Performed By: #### C BCDIF, WSR, CMP, CRP ####[place] [address] [address] [phone] MCHC mass conc (RBC) 33.2 g/dL Normal 30.5-36.0 [facility] Comment on above: Performed By: #### C BCDIF, WSR, CMP, CRP ####[place] [address] [address] [phone] MCV 91.8 fL Normal 80.0-100.0 [facility] Comment on above: Performed By: #### C BCDIF, WSR, CMP, CRP ####[place] [address], [place] [phone] Monocytes/100 leukocytes 7.6 % Normal [facility] Comment on above: Performed By: #### C BCDIF, WSR, CMP, CRP ####[place] [address] [address] [place] [phone] Neutrophils/100 WBC Auto (Bld) 72.5 % Normal [facility] Comment on above: Performed By: #### C BCDIF, WSR, CMP, CRP ####[place] [address] [address] [place] [phone] Platelet mean volume (PMV) 10.0 fL Normal 9.0-12.7 [facility] Comment on above: Performed By: #### C BCDIF, WSR, CMP, CRP ####[place] [address] [address] [phone] Platelets 209 10*3/uL Normal 150-400 [facility] Comment on above: Performed By: #### C BCDIF, WSR, CMP, CRP ####[place] [address] [address], [place] [phone] WBC (Leukocytes) 5.40 10*3/uL Normal 3.70-11.00 [facility] Comment on above: Performed By: #### C BCDIF, WSR, CMP, CRP ####[place] [address] [address] [place] [phone] Comp Metabolic Panelon 07-10 Alanine aminotransferase (ALT) 27 U/L Normal 10-54 [facility] Comment on above: Performed By: #### C BCDIF, WSR, CMP, CRP ####[place] [address] [address] [place] [phone] Albumin 4.7 g/dL Normal 3.9-4.9 [facility] Comment on above: Performed By: #### C BCDIF, WSR, CMP, CRP ####[facility] [place] [place] [phone] Alkaline phosphatase (ALP) 68 U/L Normal 36-108 [facility] Comment on above: Performed By: #### C BCDIF, WSR, CMP, CRP ####[place] [address] [address] [place] [phone] Anion gap 13 mmol/L Normal 9-18 [facility] Comment on above: Performed By: #### C BCDIF, WSR, CMP, CRP ####[place] [address] [address] [phone] Aspartate aminotransferase (AST) 17 U/L Normal 14-40 [facility] Comment on above: Performed By: #### C BCDIF, WSR, CMP, CRP ####[place] [address] [address] [phone] Bilirubin (total) 0.5 mg/dL Normal 0.2-1.3 [facility] Comment on above: Performed By: #### C BCDIF, WSR, CMP, CRP ####[place] [address] [address] [phone] Calcium 9.8 mg/dL Normal 8.5-10.2 [facility] Comment on above: Performed By: #### C BCDIF, WSR, CMP, CRP ####[place] [address] [address] [place] [phone] Chloride 105 mmol/L Normal 97-105 [facility] Comment on above: Performed By: #### C BCDIF, WSR, CMP, CRP ####[place] [address] [address] [place] [phone] CO2 22 mmol/L Normal 22-30 [facility] Comment on above: Performed By: #### C BCDIF, WSR, CMP, CRP ####[facility] [address] [place], [place] [phone] Creatinine 1.06 mg/dL Normal 0.73-1.22 [facility] Comment on above: Performed By: #### C BCDIF, WSR, CMP, CRP ####[facility] [address] [place], [place] [phone] eGFR (non-black) mL/min/{1.73_m2} Normal [facility] Comment on above: Performed By: #### C BCDIF, WSR, CMP, CRP ####[facility] [address] [place], [place] [phone] Result Comment: eGFR (Estimated GFR) Units of measure: mL/min/1.73 meters squaredeGFR is derived from the reexpressed MDRD Study equation using the following parameters: serum creatinine, age, gender and race. The creatinine assay has been calibrated to be traceable to IDMS.An eGFR <60 mL/min/1.73m2 for >3 months is consistent with chronic kidney disease. Refer to KDOQI guidelines for clinical interpretation.In patients with unstable renal function, e.g. those with acute kidney injury, the eGFR may not accurately reflect actual GFR. Glucose mass conc 95 mg/dL Normal 74-99 [facility] Comment on above: Result Comment: The [place] Diabetes Association (ADA) provides guidance for cutoff values for fasting glucose and random glucose. The ADA defines fasting as no caloric intake for at least 8 hours. Fasting plasma glucose results between 100 to 125 mg/dL indicate increased risk for diabetes (prediabetes).Fasting plasma glucose results greater than or equal to 126 mg/dL meet the criteria for diagnosis of diabetes. In the absence of unequivocal hyperglycemia, results should be confirmed by repeat testing. In a patient with classic symptoms of hyperglycemia or hyperglycemic crisis, random plasma glucose results greater than or equal to 200 mg/dL meet the criteria for diagnosis of diabetes.Reference: Standards of Medical Care in Diabetes 2016, [place] Diabetes Association. Diabetes Care. 2016.39(Suppl 1). Performed By: #### C BCDIF, WSR, CMP, CRP ####[place] [address], [place] [phone] Potassium molar conc 4.3 mmol/L Normal 3.7-5.1 [facility] Comment on above: Performed By: #### C BCDIF, WSR, CMP, CRP ####[place] [address] [address] [phone] Protein 8.0 g/dL Normal 6.3-8.0 [facility] Comment on above: Performed By: #### C BCDIF, WSR, CMP, CRP ####[place] [address] [address] [phone] Sodium 140 mmol/L Normal 136-144 [facility] Comment on above: Performed By: #### C BCDIF, WSR, CMP, CRP ####[place] [address] [address] [phone] Urea nitrogen 12 mg/dL Normal 9-24 [facility] Comment on above: Performed By: #### C BCDIF, WSR, CMP, CRP ####[address] [phone] PROGRESSon 07-10-2017 PROGRESS HNO ID: [id number] thor: Lisa Schroeder ([facility]) Vanessa Devlin: (none)Author Type: Nurse PractitionerType: Progress NotesFiled: 07/10/2017 1:22 PMNote Text:AMBULATORY PATIENT EDUCATIONTOPIC: Survival Skills: SURVIVAL SKILLS: Medication Administrationself-injection READINESS TO LEARNCOGNITIVE ABILITY: Alert and orientedMOTIVATION TO LEARN: EagerInterestedFAMILY SUPPORT: Unable to assess - Family not presentINSTRUCTION PROVIDED TO: PatientPATIENT LEARNS BEST BY: Individual InstructionWritten Instruction - Hand-outsVerbal InstructionDemonstrationFACT ORS AFFECTING LEARNING: NonePHYSICAL LIMITATIONS AFFECTING LEARNING: NoneLEARNING RESPONSEDIAGNOSIS: Seronegative RAMETHOD OF INSTRUCTION: Individual instructionWritten instruction - handoutsVerbal instructionDemonstration-Aydin andersen on LearningPATIENT / FAMILY RESPONSE: Verbalizes understanding of: SELF INJECTION-Correct procedure to administer self injection using clean techniquePerforms skill independently: SELF INJECTION- Able to administer selfinjection using clean techniqueFOLLOW-UP PLAN: Complete - No need for follow-upPatient instructed to call with any further issuesSUPPLEMENTAL MATERIAL: Instruction on use of SQ MTXMedication instruction materialREFERRAL (RECOMMENDATION): NoneSQ INJ TEACHINGReviewed subcutaneous injection with patient. patient able to demonstrateproper technique for subcutaneous injection.. Aryan Roberts verbalizedunderstanding and all questions were answered.MTX 15mg given subcutaneously in left abdomen by pt, observed.Electronically Signed By: Lisa Devlin CNP Normal [facility] PROGRESS HNO ID: [id number] thor: Aidan Barr: (none)Author Type: PhysicianType: Progress NotesFiled: 07/10/2017 1:22 PMNote Text:?[facility] ORTHOPAEDIC AND RHEUMATOLOGIC INSTITUTEDEPARTMENT OF RHEUMATIC AND IMMUNOLOGIC DISEASESSUBJECTIVE:Reason for visit: Inflammatory arthritisBrief History of Present Illness:52 year old male with PMHx significant for CAD with coronary dissection,HTN, multiple joint surgeries evaluated in the [facility]umatology Clinic forseronegative RA.He was fist seen by me in 04/2017 for joint pain, thought to beseronegative RA. He was prescribed methotrexate 15 mg sq weekly with folicacid supplementation. Unfortunately, due to miscommunication themedication was not started.Today Mr. Roberts feels unwell-- he notes joint pain and stiffness lastingall day. Pain is worst in his hands and wrists. He has neck pain and lowback pain (also scheduled to see the Spine center later this month). Hehas been unable to tolerate certain cholesterol mediations due to oralulcers. He has been working diligently on improving his diet and trying tostay active despite widespread pain.CONSTITUTIONAL: FatigueEYES: Redness, DrynessEAR, NOSE, MOUTH, THROAT: Nose bleeds, Sores in mouth, Dry mouthCARDIOVASCULAR: Chest painRESPIRATORY: Shortness of breath, Chronic coughGASTROINTESTINAL: Heartburn, Abdominal painMUSCULOSKELETAL: Joint pain, Joint swelling, Morning stiffness in joints,Muscle weakness, Back painSKIN: Hair lossNEUROLOGIC: Headaches, Numbness or tinglingKNOWN MEDICAL CONDITIONS: High blood pressureREVIEW OF SYSTEMS: July 10, 2017CONSTITUTIONAL:Fever: NoFatigue: YesEYES:Redness: YesDryness: YesEAR, NOSE, MOUTH, THROAT:Nose bleeds: YesHearing loss: NoSores in mouth: YesSwallowing problems: NoDry mouth: YesCARDIOVASCULAR:Chest pain: YesSwelling in the feet or legs: NoRESPIRATORY:Shortness of breath: YesPain with breathing: NoChronic cough: YesCoughing up blood: No,GASTROINTESTINAL:Heartbur n: YesNausea: NoDiarrhea: NoBlood in the stool or black stool: NoAbdominal pain: YesGENITOURINARY:Blood in urine: NoPain or burning on urination: No]MUSCULOSKELETAL:Joint pain: YesJoint swelling: YesMorning stiffness in joints: YesMuscle weakness: YesBack pain: YesSKIN:Rashes: NoSun sensitive rashes: NoColor changes of hands or feet in the cold: NoHair loss: YesNail changes: NoNEUROLOGICAL:Headaches: YesDizziness: NoNumbness or tingling: YesMemory loss: NoSeizures: NoHEMATOLOGIC/LYMPHATIC:Swol behzad glands: NoAnemia: NoALLERGIES/IMMUNOLOGIC:Lazaro rgies (other than medications): NoIncreased susceptibility to infection: NoKNOWN MEDICAL CONDITIONS:Diabetes: NoThyroid disease: NoHigh blood pressure: YesPMHx:PAST MEDICAL HISTORYDiagnosis Date- CAD (coronary artery disease)- HTN (hypertension)- NH (myocardial infarction)PSHx:PAST SURGICAL HISTORYProcedure Laterality Date- ARTHROSCOPY KNEE; W/ FIXATION- PAST SURGICAL HISTORY OF right shoulder surgery x 5- PAST SURGICAL HISTORY OF right wrist surgery x 5- PAST SURGICAL HISTORY OF left wrist surgery- PAST SURGICAL HISTORY OF 06/2016 heart surgery with stents x 3-RCA,prox RCA, synergy stentsMEDICATIONS:methotrexa te sodium 25 mg/mL soln Inject 0.6 mL subcutaneously once eachweek.folic acid 1 mg tablet Take 1 tablet by mouth once daily.diclofenac sodium (VOLTAREN) 1 % topical gel Apply 4 g to affected areafour times daily.aspirin, enteric coated (ASPIRIN, ENTERIC COATED) 81 mg EC tablet Take 81mg by mouth as needed.atorvastatin (LIPITOR) 80 mg tablet Take 80 mg by mouth as directed.losartan (COZAAR) 25 mg tablet Take 25 mg by mouth as directed.Omeprazole 40 mg capsule Take 40 capsules by mouth as directed.ALLERGIES:ALLERGIES Allergen Reactions- Vicodin [Hydrocodon* ItchingOBJECTIVE:Physical Examination:Vitals: BP 128/87 (BP Site: Left Arm, BP Position: Sitting, BP Cuff Size:Regular Adult) Pulse 73 Temp 36.9 ?C (98.5 ?F) (Temporal Artery) Ht169.8 cm (5' 6.83) Wt 97.6 kg (215 lb 3.2 oz) BMI 33.88 kg/e0Edlwqjs: Looks well, NAD, A AND Ox3.HEENT: PERRLA AND EOMs intact. Throat clear without exudates. Reduced ROM inall planes on C spine ROM testing. Scleral injections noted.Neck: No LAD. No bruits.CVS: RRR, nl S1/S2, no R/M/G,Resp: CTAB. No rales or wheezing.Ext: No edema.Skin: No rash. No ulcers.Musculoskeletal: Shoulders: No swelling, Tenderness on bilateral AC joints. Elbows: No swelling, no tenderness, no flexion contractures, nonodules, good ROM Wrists: No swelling, + tenderness, no limitation in flexion andextension Hands: There is a contracture of right 2nd finger with cyst formationon dorsal surface of hand-- just distal to wrist. 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 Knees: No effusion, no tenderness, cool without crepitus. Ankles: No swelling, + tenderness on ROM testing. Feet/Toes/ MTP: No evidence of synovitisIMPRESSIONS/RECOMME NDATIONS:Polyarticular joint pain, likely seronegative RA.He has had an adverse response to PO methotrexate and leflunomide.- We will plan for a re-trial of methotrexate, via subcutaneousadministration with daily folic acid supplementation. Teaching wasperformed today, syringes ordered.- We have discussed the risks and toxicities associated with the use ofthis medication and the appropriate lab monitoring. Labs today and againin 2 weeks.- He is unable to tolerate PO prednisone and I have administeredDepoMedrol 120 mg IM todayRTC 3 months.Impression and recommendations/plan discussed with the patient in person.Old records and films reviewed as noted above.Consult will be sent to the requesting physician and/or the patient.Laboratory tests and Radiology: As outlined in orders.Aidan Edmondson D.O.Rheumatology Staff Normal [facility] Sed Rate Westergrenon 2017 Sed Rate Westergren 5 mm/hr Normal 0-15 [facility] Comment on above: Performed By: #### C BCDIF, WSR, CMP, CRP ####[place] [address] [address], [place] [phone] C-Reactive Proteinon 017 C reactive protein (CRP) 0.4 mg/dL Normal <0.9 [facility] Comment on above: Performed By: #### C BCDIF, WSR, CRP, RF, URIC, CMP, HREMOP, INFTBG, CCP ####[place] [address] [address] [place], [place] [phone] CBC and Differentialon 05-05 Abs Baso 0.04 k/uL Normal <0.11 [facility] Comment on above: Performed By: #### C BCDIF, WSR, CRP, RF, URIC, CMP, HREMOP, INFTBG, CCP ####[address] [place], [place] [phone] Abs [place] 0.54 k/uL Normal <0.87 [facility] [facility] Comment on above: Performed By: #### C BCDIF, WSR, CRP, RF, URIC, CMP, HREMOP, INFTBG, CCP ####[place] [id number] Ave[address], [place] [phone] Abs Neut 4.24 k/uL Normal 1.45-7.50 [facility] Comment on above: Performed By: #### C BCDIF, WSR, CRP, RF, URIC, CMP, HREMOP, INFTBG, CCP ####[place] [address] [address]Clevel[address] [phone] Basophils/100 WBC Auto (Bld) 0.7 % Normal [facility] Comment on above: Performed By: #### C BCDIF, WSR, CRP, RF, URIC, CMP, HREMOP, INFTBG, CCP ####[place] [address] [address] AveCVictor[address] [place] [phone] DTYPE Auto Diff Normal [facility] Comment on above: Performed By: #### C BCDIF, WSR, CRP, RF, URIC, CMP, HREMOP, INFTBG, CCP ####[place] [address] [address] AveCV[address] [place] [phone] Eosinophils 0.10 10*3/uL Normal <0.46 [facility] Comment on above: Performed By: #### C BCDIF, WSR, CRP, RF, URIC, CMP, HREMOP, INFTBG, CCP ####[place] [address] [address] [place] [phone] Eosinophils/100 leukocytes 1.7 % Normal [facility] Comment on above: Performed By: #### C BCDIF, WSR, CRP, RF, URIC, CMP, HREMOP, INFTBG, CCP ####[place] [address] [address] [place] [phone] Erythrocyte distribution width Auto Ratio (RBC) 13.3 % Normal 11.5-15.0 [facility] Comment on above: Performed By: #### C BCDIF, WSR, CRP, RF, URIC, CMP, HREMOP, INFTBG, CCP ####[place] [address] [address] [phone] Erythrocytes (RBC) 10*6/uL Normal <0.01 [facility] Comment on above: Performed By: #### C BCDIF, WSR, CRP, RF, URIC, CMP, HREMOP, INFTBG, CCP ####[place] [address] [address], [place] [phone] Erythrocytes (RBC) 0.0 /100 WBC Normal 0 [facility] Comment on above: Performed By: #### C BCDIF, WSR, CRP, RF, URIC, CMP, HREMOP, INFTBG, CCP ####[address], [place] [phone] Erythrocytes (RBC) 5.19 10*6/uL Normal 4.20-6.00 [facility] Comment on above: Performed By: #### C BCDIF, WSR, CRP, RF, URIC, CMP, HREMOP, INFTBG, CCP ####[address], [place] [phone] Hematocrit (HCT) 48.7 % Normal 39.0-51.0 [facility] Comment on above: Performed By: #### C BCDIF, WSR, CRP, RF, URIC, CMP, HREMOP, INFTBG, CCP ####[place] [address] [address], [place] [phone] Hemoglobin mass conc (Bld) 16.5 g/dL Normal 13.0-17.0 [facility] Comment on above: Performed By: #### C BCDIF, WSR, CRP, RF, URIC, CMP, HREMOP, INFTBG, CCP ####[place] [address] [address], [place] [phone] Lymphocytes 1.00 10*3/uL Normal 1.00-4.00 [facility] Comment on above: Performed By: #### C BCDIF, WSR, CRP, RF, URIC, CMP, HREMOP, INFTBG, CCP ####[place] [address] [address], [place] [phone] Lymphocytes/100 leukocytes 16.9 % Normal [facility] Comment on above: Performed By: #### C BCDIF, WSR, CRP, RF, URIC, CMP, HREMOP, INFTBG, CCP ####[address]ictor[address]ille [phone] MCH 31.8 pG Normal 26.0-34.0 [facility] Comment on above: Performed By: #### C BCDIF, WSR, CRP, RF, URIC, CMP, HREMOP, INFTBG, CCP ####[address] [phone] MCHC mass conc (RBC) 33.9 g/dL Normal 30.5-36.0 [facility] Comment on above: Performed By: #### C BCDIF, WSR, CRP, RF, URIC, CMP, HREMOP, INFTBG, CCP ####[place] [phone] MCV 93.8 fL Normal 80.0-100.0 [facility] Comment on above: Performed By: #### C BCDIF, WSR, CRP, RF, URIC, CMP, HREMOP, INFTBG, CCP ####[address] [place] [phone] Monocytes/100 leukocytes 9.1 % Normal [facility] Comment on above: Performed By: #### C BCDIF, WSR, CRP, RF, URIC, CMP, HREMOP, INFTBG, CCP ####[address] [phone] Neutrophils/100 WBC Auto (Bld) 71.6 % Normal [facility] Comment on above: Performed By: #### C BCDIF, WSR, CRP, RF, URIC, CMP, HREMOP, INFTBG, CCP ####[address] [phone] Platelet mean volume (PMV) 10.2 fL Normal 9.0-12.7 [facility] Comment on above: Performed By: #### C BCDIF, WSR, CRP, RF, URIC, CMP, HREMOP, INFTBG, CCP ####[address] [phone] Platelets 209 10*3/uL Normal 150-400 [facility] Comment on above: Performed By: #### C BCDIF, WSR, CRP, RF, URIC, CMP, HREMOP, INFTBG, CCP ####[address] [phone] WBC (Leukocytes) 5.93 10*3/uL Normal 3.70-11.00 [facility] Comment on above: Performed By: #### C BCDIF, WSR, CRP, RF, URIC, CMP, HREMOP, INFTBG, CCP ####[place] [address] [place], [place] [phone] CCP Antibody, IgGon 05-05-20 17 CCP Antibody, IgG <15 Normal <20 [facility] Comment on above: Result Comment: < 20 units: Oksbzkyi48-76 units: Weak Qvvtaczi66-61 units: Moderate Positive> 60 units: Strong Positive Performed By: #### C BCDIF, WSR, CRP, RF, URIC, CMP, HREMOP, INFTBG, CCP ####[facility] [place] [place], [place] [phone] CNOVon 05-05-2017 CNOV Office Visit (RHEUMN) ----ARYAN ROBERTS ([id number]) 1965 MDate Time Provider Lrlxwautrn89/28/17 12:40 PM AIDAN EDMONDSON During your visit today, we recorded the following information about you: Temperature Pulse Blood pressure Weight 98.2 degrees 80/minute 141/85 98.2 kg Height 1.698 Alicia Edmondson, DO 05/07/2017 2:12 PM Signed?[facility] ORTHOPAEDIC ANDamp; RHEUMATOLOGIC INSTITUTEDEPARTMENT OF RHEUMATIC AND IMMUNOLOGIC DISEASESThis consult was requested by the doctor listed below for an opinion regardingthe chief complaint listed below, and my final recommendations will becommunicated to the requesting health care provider by way of the sharedmedical record for internal providers or letter via the U.S. Postal Service forexternal providers.Referring Physician:SELFSUBJECTIVE:CC: Joint painHistory of Present Illness:52 year old male with PMHx significant for CAD with coronary dissection, HTN,multiple joint surgeries is evaluated in the Rheumatology Clinic for joint pain.To review, in 1996 Mr. Roberts sustained an accident of his right hand, heunderwent a four corner fusions on this hand.In 2006 he sustained a trauma with a 500 press at work which crushed part ofhis hands. He then needed 5 wrist surgeries. He has also had 5 right shouldersurgeries for a torn rotator cuff.In Jun 2016 he sustained an NH and underwent PCI. He was stented again in November2016.He was evaluated by Rheumatology at [facility] and was diagnosed withseronegative RA. He has mor recently been seen by Dr. Deann adan; was first put on methotrexate PO 10 mg weekly with folic acid. Hetook two doses of this before it made him feel ill (ANDquot;flu-like.ANDquot;) Wasthen placed on leflunomide which caused mouth sores and blurry vision.Currently he endorses joint pain of multiple joints-- shoulders, PIPs/MCPs,wrists and knees. He has objective swelling and 20 minutes of morningstiffness. He was placed on a course of prednisone which helped him at highdoses (20 mg daily). Prednisone 5 mg daily did not provide relief. Is nowtaking trazodone to help him sleep.He also endorses severe back pain-- specifically right lower back pain withradiation down his right leg. He does see an orthopedic surgeon and hasreceived lumbar spinal injections which did not help him. He has been unable tobend down, flex forward or lay on the right side due to the pain in his rightlower back.RHEUMATOLOGIC ROS:(-) Weight Loss, (+) Fatigue, (-) Fever, (-) Hair Loss, (-) Headache, (-) h/oScleritis/Episcleritis, (-) h/o Iritis/Uveitis, (-) Oral/Nasal Ulcers, (-)Epistaxis, (-) Dry Eyes, (-) Dry Mouth, (-) Rash, (-) Photosensitivity, (-),Skin Ulcers, (-) Enthesitis, (-) Dactylitis, (+) Back Pain.PMHx:PAST MEDICAL HISTORYDiagnosis Date- CAD (coronary artery disease)- HTN (hypertension)- NH (myocardial infarction)PSHx:PAST SURGICAL HISTORYProcedure Laterality Date- ARTHROSCOPY KNEE; W/ FIXATION- PAST SURGICAL HISTORY OF right shoulder surgery x 5- PAST SURGICAL HISTORY OF right wrist surgery x 5- PAST SURGICAL HISTORY OF left wrist surgery- PAST SURGICAL HISTORY OF 06/2016 heart surgery with stents x 3-RCA,prox RCA, synergy stentsFamHx:No family history on file.SocHx:Social HistorySubstance Use Topics- Smoking status: Never Smoker- Smokeless tobacco: Never Used- Alcohol use NoMEDICATIONS:No prescriptions on file.ALLERGIES:ALLERGIESAlle rgen Reactions- Vicodin [Hydrocodon* ItchingOBJECTIVE:Physical Examination:BP 141/85 (BP Site: Left Arm, BP Position: Sitting, BP Cuff Size: RegularAdult) Pulse 80 Temp 36.8 ?C (98.2 ?F) (Temporal Artery) Ht 169.8 cm (5'6.83ANDquot;) Wt 98.2 kg (216 lb 6.4 oz) BMI 34.06 kg/s3Vnxlewc: Looks well, NAD, A ANDamp; Ox3.HEENT: EOMs intact. Throat clear without exudates.Neck: Right tonsillar lymph node fullness.CVS: RRR, nl S1/S2, no R/M/G,.Resp: CTAB. No rales or wheezing.Abdo: NL BS present, soft ANDamp; non-tender,Ext: Good DP/PTs palpable bilaterally. No edema.Neuro: CN's 2-12 intact. Sensation intact to LT in UE/LE B/L. Power 5/5 on UE,+4/5 on bilateral hips.Skin: No rash. No ulcers.Musculoskeletal: Spine: Good ROM, no TTP. Neck: Good flexion/extension/lateral rotation Shoulders: No swelling, no tenderness, good ROM Elbows: No swelling, no tenderness, no flexion contractures, no nodules,good ROM Wrists: + tenderness, with some limitation in flexion and extension Hands: No evidence of synovitis. Right 2nd finger flexion deformity noted.There is pain on MCP RANDgt;L. Able to make full fist bilaterally. Hips: Deferred due to serrano. Knees: No effusion, no tenderness, good ROM Ankles: No swelling, no tenderness, good ROM Feet/Toes/ MTP: No evidence of synovitis, there is pain on bilateral 1stMTP palpation.Investigations:Lab s:Component Latest Ref Rng ANDamp; Units 05/05/2017WBC 3.70 - 11.00 k/uL 5.93RBC 4.20 - 6.00 m/uL 5.19Hemoglobin 13.0 - 17.0 g/dL 16.5Hematocrit 39.0 - 51.0 % 48.7MCV 80.0 - 100.0 fL 93.8MCH 26.0 - 34.0 pG 31.8MCHC 30.5 - 36.0 g/dL 33.9RDW-CV 11.5 - 15.0 % 13.3Platelet Count 150 - 400 k/uL 209MPV 9.0 - 12.7 fL 10.2Neut% % 71.6Abs Neut (ANC) 1.45 - 7.50 k/uL 4.24Lymph% % 16.9Abs Lymph 1.00 - 4.00 k/uL 1.00Mono% % 9.1Abs [place] ANDlt;0.87 k/uL 0.54Eosin% % 1.7Abs Eosin ANDlt;0.46 k/uL 0.10Baso% % 0.7Abs Baso ANDlt;0.11 k/uL 0.04Nucleated Reds 0 /100 WBC 0.0Absolute nRBC ANDlt;0.01 k/uL ANDlt;0.01Diff Type Auto DiffProtein, Total 6.3 - 8.0 g/dL 7.4Albumin 3.9 - 4.9 g/dL 4.5Calcium 8.5 - 10.2 mg/dL 9.6Bilirubin, Total 0.2 - 1.3 mg/dL 0.2Alkaline Phosphatase 36 - 108 U/L 68AST 14 - 40 U/L 23Glucose 74 - 99 mg/dL 112 (H)BUN 9 - 24 mg/dL 16Creatinine 0.73 - 1.22 mg/dL 1.27 (H)Sodium 136 - 144 mmol/L 140Potassium 3.7 - 5.1 mmol/L 4.2Chloride 97 - 105 mmol/L 101CO2 22 - 30 mmol/L 25Anion Gap 9 - 18 mmol/L 14ALT 10 - 54 U/L 35eGFR- ANDgt;60eGFR-All Other Races . 60Hep B Core Ab, Total Negative NegativeHep C Antibody IA Negative NegativeHep B Surface Ag Negative NegativeHep B Surface Ab, Qual Negative NegativeUric Acid 4.0 - 8.1 mg/dL 7.6Rheumatoid Factor ANDlt;16 IU/mL ANDlt;10CCP Antibody, IgG ANDlt;20 Units ANDlt;15CRP ANDlt;0.9 mg/dL 0.4WSR 0 - 15 mm/hr 5Imaging:Xrays hands05/05/2017Ankylosis of the carpal bones right wrist, with remote fracture deformityof the right fifth metacarpalNo evidence of inflammatory arthropathy.IMPRESSIONS/LAMIN MMENDATIONS:52 year old male with PMHx significant for CAD with coronary dissection, HTN,multiple joint surgeries is evaluated in the Rheumatology Clinic for joint pain.Polyarticular joint painI have reviewed the patient labs and radiographs, along with taken a fullhistory and physical. It is my impression that patient's presentation isconsistent with seronegative RA. He had an adverse response to PO methotrexateand leflunomide.- We will plan for a re-trial of methotrexate, via subcutaneous administrationwith folic acid supplementation.- We have discussed the risks and toxicities associated with the use of thismedication and the appropriate lab monitoring.Impression and recommendations/plan discussed with the patient in person.Old records and films reviewed as noted above.Consult will be sent to the requesting physician and/or the patient.Laboratory tests and Radiology: As outlined in orders.Aidan Edmondson, Vanessa Edmondson, DO 05/05/2017 1:14 PM Signed1. please have xrays performed today on the second floor.2. Blood work to be obtained on the first floor.3. I have sent in a referral to the spine center, the schedulers can help youmake this appointment.4. I will be in touch with the results in 5-7 days.Referring Provider: SELF [[id number]]Allergies As of Date: 05/05/2017 Noted Allergy ReactionVICODIN (HYDROCODONE-ACETAMINOPHE* 9 - ItchingDate Reviewed: 05/05/2017Reviewed by: Johny Reaves MA - Fully AssessedPrimary Visit Diagnosis:Pain in joint, multiple sites [M25.50] Other Visit Diagnosis:Chronic bilateral low back pain with right-sided sciatica [M54.41, G89.29]Order(s):URIC ACID BLOOD [SQURIC] Order #: [id number] FUTURE CBC + DIFF [SQCBCDIF] Order #: [id number] FUTURE COMP METABOLIC PANEL [SQCMP] Order #: [id number] FUTURE RHEUMATOID FACTOR BL [SQRF] Order #: [id number] FUTURE CCP ANTIBODY IGG [SQCCP] Order #: [id number] FUTURE XR HAND GENERAL 3V PA/LAT/OBL LT [4258931] Order #: [id number] FUTURE XR HAND GENERAL 3V PA/LAT/OBL RT [6275026] Order #: [id number] FUTURE CONSULT TO SPINE CENTER [[id number]] Order #: [id number]: 1 C-REACTIVE PROTEIN (CRP) [SQCRP] Order #: [id number] FUTURE SED RATE WESTERGREN [SQWSR] Order #: [id number] FUTURE HEP REMOTE PANEL BL [SQHREMOP] Order #: [id number] FUTURE BLOOD TB SCREEN [SQINFTBG] Order #: [id number] FUTURE diclofenac sodium (VOLTAREN) 1 % topical gelApply 4 g to affected area four times daily.Disp: 1 TubeRfl: 3Prescriptions as of 05/05/2017 Sig: DICLOFENAC 1 % TOPICAL GEL Apply 4 g to affected area fo* ASPIRIN 81 MG TABLET,DELAYED * Take 81 mg by mouth as needed. ATORVASTATIN 80 MG TABLET Take 80 mg by mouth as direct* LOSARTAN 25 MG TABLET Take 25 mg by mouth as direct* OMEPRAZOLE 40 MG CAPSULE,JOCY* Take 40 capsules by mouth as * LEFLUNOMIDE 10 MG TABLET Take 10 mg by mouth as direct* LEUCOVORIN CALCIUM 25 MG TABL* Take 25 mg by mouth as direct*Medication notes this encounter ASPIRIN 81 MG TABLET,DELAYED RELEASE >> Johny Jelly RUEL 05/05/2017 1:32 PM >> JELLY MA, JOHNYDEVORA Hamilton May 05, 2017 1:32 PM Received from: External Pharmacy ATORVASTATIN 80 MG TABLET >> Johny Jelly RUEL 05/05/2017 1:32 PM >> JELLY RUEL JOHNYDEVORA [place] May 05, 2017 1:32 PM Received from: External Pharmacy LOSARTAN 25 MG TABLET >> Johny Jelly MA 05/05/2017 1:32 PM >> JELLYJOHNY KOO MA May 05, 2017 1:32 PM Received from: External Pharmacy OMEPRAZOLE 40 MG CAPSULE,DELAYED RELEASE >> Johny Jelly MA 05/05/2017 1:32 PM >> JELLY RUEL JOHNYDEVORA [place] May 05, 2017 1:32 PM Received from: External Pharmacy LEFLUNOMIDE 10 MG TABLET >> Johny Jelly RUEL 05/05/2017 1:32 PM >> JELLY MA, JOHNYDEVORA [place] May 05, 2017 1:32 PM Received from: External Pharmacy LEUCOVORIN CALCIUM 25 MG TABLET >> Johny Jelly MA 05/05/2017 1:32 PM >> JELLY RUEL JOHNY Tue May 05, 2017 1:32 PM Received from: External PharmacyProblem List As Of Date: 05/05/2017(None) Other instructions from your clinician: 1. please have xrays performed today on the second floor. 2. Blood work to be obtained on the first floor. 3. I have sent in a referral to the spine center, the schedulers can help you make this appointment. 4. I will be in touch with the results in 5-7 days.Prescriptions ordered this encounter Disp Refills Start End DICLOFENAC 1 % TOPICAL GEL 1 Tu* 3 05/05/2017 Route: TOPICAL Sig: Apply 4 g to affected area four times daily. Status:Closed by AIDAN EDMONDSON on 05/07/17 Normal [facility] Comp Metabolic Panelon 05-05 Alanine aminotransferase (ALT) 35 U/L Normal 10-54 [facility] Comment on above: Performed By: #### C BCDIF, WSR, CRP, RF, URIC, CMP, HREMOP, INFTBG, CCP ####[place] [address]CV[place] [place] [phone] Albumin 4.5 g/dL Normal 3.9-4.9 [facility] Comment on above: Performed By: #### C BCDIF, WSR, CRP, RF, URIC, CMP, HREMOP, INFTBG, CCP ####[place] [address] [address]CAnthony [place] [phone] Alkaline phosphatase (ALP) 68 U/L Normal 36-108 [facility] Comment on above: Performed By: #### C BCDIF, WSR, CRP, RF, URIC, CMP, HREMOP, INFTBG, CCP ####[place] [address] [address] [place] [phone] Anion gap 14 mmol/L Normal 9-18 [facility] Comment on above: Performed By: #### C BCDIF, WSR, CRP, RF, URIC, CMP, HREMOP, INFTBG, CCP ####[place] [address] [address] [place] [phone] Aspartate aminotransferase (AST) 23 U/L Normal 14-40 [facility] Comment on above: Performed By: #### C BCDIF, WSR, CRP, RF, URIC, CMP, HREMOP, INFTBG, CCP ####[place] [address] [address] [place] [phone] Bilirubin (total) 0.2 mg/dL Normal 0.2-1.3 [facility] Comment on above: Performed By: #### C BCDIF, WSR, CRP, RF, URIC, CMP, HREMOP, INFTBG, CCP ####[place] [address] [address] [place] [phone] Calcium 9.6 mg/dL Normal 8.5-10.2 [facility] Comment on above: Performed By: #### C BCDIF, WSR, CRP, RF, URIC, CMP, HREMOP, INFTBG, CCP ####[place] [address] [address] [place] [phone] Chloride 101 mmol/L Normal 97-105 [facility] Comment on above: Performed By: #### C BCDIF, WSR, CRP, RF, URIC, CMP, HREMOP, INFTBG, CCP ####[place] [address] [address] [place] [phone] CO2 25 mmol/L Normal 22-30 [facility] Comment on above: Performed By: #### C BCDIF, WSR, CRP, RF, URIC, CMP, HREMOP, INFTBG, CCP ####[place] [address] [address] [place] [phone] Creatinine 1.27 mg/dL High 0.73-1.22 [facility] Comment on above: Performed By: #### C BCDIF, WSR, CRP, RF, URIC, CMP, HREMOP, INFTBG, CCP ####[place] [address] [address] [place] [phone] eGFR (non-black) mL/min/{1.73_m2} Normal [facility] Comment on above: Performed By: #### C BCDIF, WSR, CRP, RF, URIC, CMP, HREMOP, INFTBG, CCP ####[place] [address] [address] [place] [phone] eGFR (non-black) 60 . Normal [facility] Comment on above: Result Comment: eGFR (Estimated GFR) Units of measure: mL/min/1.73 meters squaredeGFR is derived from the reexpressed MDRD Study equation using the following parameters: serum creatinine, age, gender and race. The creatinine assay has been calibrated to be traceable to IDND.An eGFR <60 mL/min/1.73m2 for >3 months is consistent with chronic kidney disease. Refer to KDOQI guidelines for clinical interpretation.In patients with unstable renal function, e.g. those with acute kidney injury, the eGFR may not accurately reflect actual GFR. Performed By: #### C BCDIF, WSR, CRP, RF, URIC, CMP, HREMOP, INFTBG, CCP ####[address] [phone] Glucose mass conc 112 mg/dL High 74-99 [facility] Comment on above: Result Comment: The [place] Diabetes Association (ADA) provides guidance for cutoff values for fasting glucose and random glucose. The ADA defines fasting as no caloric intake for at least 8 hours. Fasting plasma glucose results between 100 to 125 mg/dL indicate increased risk for diabetes (prediabetes).Fasting plasma glucose results greater than or equal to 126 mg/dL meet the criteria for diagnosis of diabetes. In the absence of unequivocal hyperglycemia, results should be confirmed by repeat testing. In a patient with classic symptoms of hyperglycemia or hyperglycemic crisis, random plasma glucose results greater than or equal to 200 mg/dL meet the criteria for diagnosis of diabetes.Reference: Standards of Medical Care in Diabetes 2016, [place] Diabetes Association. Diabetes Care. 2016.39(Suppl 1). Performed By: #### C BCDIF, WSR, CRP, RF, URIC, CMP, HREMOP, INFTBG, CCP ####[facility] [place] [place], [place] [phone] Potassium molar conc 4.2 mmol/L Normal 3.7-5.1 [facility] Comment on above: Performed By: #### C BCDIF, WSR, CRP, RF, URIC, CMP, HREMOP, INFTBG, CCP ####[facility] [place] [place], [place] [phone] Protein 7.4 g/dL Normal 6.3-8.0 [facility] Comment on above: Performed By: #### C BCDIF, WSR, CRP, RF, URIC, CMP, HREMOP, INFTBG, CCP ####[address] [place] [phone] Sodium 140 mmol/L Normal 136-144 [facility] Comment on above: Performed By: #### C BCDIF, WSR, CRP, RF, URIC, CMP, HREMOP, INFTBG, CCP ####[place] [phone] Urea nitrogen 16 mg/dL Normal 9-24 [facility] Comment on above: Performed By: #### C BCDIF, WSR, CRP, RF, URIC, CMP, HREMOP, INFTBG, CCP ####[place] [phone] Hepatitis Remote Panelon BSA (Body Surface Area) Negative Normal Negative [facility] Comment on above: Performed By: #### C BCDIF, WSR, CRP, RF, URIC, CMP, HREMOP, INFTBG, CCP ####[place] [phone] Hep B Core Ab,Total Negative Normal Negative [facility] Comment on above: Performed By: #### C BCDIF, WSR, CRP, RF, URIC, CMP, HREMOP, INFTBG, CCP ####[place] [phone] Hepatitis C Ab IA Negative Normal Negative [facility] Comment on above: Performed By: #### C BCDIF, WSR, CRP, RF, URIC, CMP, HREMOP, INFTBG, CCP ####[place] [phone] HepB Surface Ab,Qual Negative Normal Negative [facility] Comment on above: Result Comment: NEGA TIVE Performed By: #### C BCDIF, WSR, CRP, RF, URIC, CMP, HREMOP, INFTBG, CCP ####[facility] [address] [place], [place] [phone] PROGRESSon 05-05-2017 PROGRESS HNO ID: [id number] thor: Beatriz () Elham Angele: RadiologyAuthor Type: TechnicianType: Progress NotesFiled: 05/05/2017 1:56 PMNote Text: Radiology Service Progress NotePATIENT NAME: Aryan RobertsMRN: [id number] OF SERVICE: May 05, 2017TIME: 1:56 PMPATIENT IDENTITY VERIFICATION COMPLETED USING TWO (2) METHODS: Patientconfirmed name verbally and Date of .PATIENT GENDER DATA: MalePATIENT RELEVANT IMPLANT DATA REVIEWED: YesRADIOLOGY DEPARTMENT: General X-ray: Exam(s) Completed: Upper ExtremityX-Ray(s): Hand, Bilateral :PERIPHERAL IV DATA: Not applicableSIGNED BY: RT LynnNov2016 1:56 PM Normal [facility] PROGRESS HNO ID: [id number] thor: Aidan Barr: (none)Author Type: PhysicianType: Progress NotesFiled: 05/07/2017 2:12 PMNote Text:?[facility] ORTHOP[facility]EDIC AND RHEUMATOLOGIC INSTITUTEDEPARTMENT OF RHEUMATIC AND IMMUNOLOGIC DISEASESThis consult was requested by the doctor listed below for an opinionregarding the chief complaint listed below, and my final recommendationswill be communicated to the requesting health care provider by way [facility] for internal providers or letter via the U.S. PostalService for external providers.Referring Physician:SELFSUBJECTIVE:CC: Joint painHistory of Present Illness:52 year old male with PMHx significant for CAD with coronary dissection,HTN, multiple joint surgeries is evaluated in the Rheumatology Clinic forjoint pain.To review, in 1996 Mr. Roberts sustained an accident of his right hand, heunderwent a four corner fusions on this hand.In 2006 he sustained a trauma with a 500 press at work which crushed partof his hands. He then needed 5 wrist surgeries. He has also had 5 rightshoulder surgeries for a torn rotator cuff.In Jun 2016 he sustained an NH and underwent PCI. He was stented again inJ2016.He was evaluated by Rheumatology at [facility] and was diagnosed withseronegative RA. He has mor recently been seen by Dr. Deann adan; was first put on methotrexate PO 10 mg weekly with folic acid.He took two doses of this before it made him feel ill (flu-like.) [place] placed on leflunomide which caused mouth sores and blurry vision.Currently he endorses joint pain of multiple joints-- shoulders,PIPs/MCPs, wrists and knees. He has objective swelling and 20 minutes ofmorning stiffness. He was placed on a course of prednisone which helpedhim at high doses (20 mg daily). Prednisone 5 mg daily did not providerelief. Is now taking trazodone to help him sleep.He also endorses severe back pain-- specifically right lower back painwith radiation down his right leg. He does see an orthopedic surgeon andhas received lumbar spinal injections which did not help him. He has beenunable to bend down, flex forward or lay on the right side due to the painin his right lower back.RHEUMATOLOGIC ROS:(-) Weight Loss, (+) Fatigue, (-) Fever, (-) Hair Loss, (-) Headache, (-)h/o Scleritis/Episcleritis, (-) h/o Iritis/Uveitis, (-) Oral/Nasal Ulcers,(-) Epistaxis, (-) Dry Eyes, (-) Dry Mouth, (-) Rash, (-)Photosensitivity, (-), Skin Ulcers, (-) Enthesitis, (-) Dactylitis, (+)Back Pain.PMHx:PAST MEDICAL HISTORYDiagnosis Date- CAD (coronary artery disease)- HTN (hypertension)- NH (myocardial infarction)PSHx:PAST SURGICAL HISTORYProcedure Laterality Date- ARTHROSCOPY KNEE; W/ FIXATION- PAST SURGICAL HISTORY OF right shoulder surgery x 5- PAST SURGICAL HISTORY OF right wrist surgery x 5- PAST SURGICAL HISTORY OF left wrist surgery- PAST SURGICAL HISTORY OF 06/2016 heart surgery with stents x 3-RCA,prox RCA, synergy stentsFamHx:No family history on file.SocHx:Social HistorySubstance Use Topics- Smoking status: Never Smoker- Smokeless tobacco: Never Used- Alcohol use NoMEDICATIONS:No prescriptions on file.ALLERGIES:ALLERGIESAlle rgen Reactions- Vicodin [Hydrocodon* ItchingOBJECTIVE:Physical Examination:BP 141/85 (BP Site: Left Arm, BP Position: Sitting, BP Cuff Size: RegularAdult) Pulse 80 Temp 36.8 ?C (98.2 ?F) (Temporal Artery) Ht 169.8 cm(5' 6.83) Wt 98.2 kg (216 lb 6.4 oz) BMI 34.06 kg/q2Eapfrmq: Looks well, NAD, A AND Ox3.HEENT: EOMs intact. Throat clear without exudates.Neck: Right tonsillar lymph node fullness.CVS: RRR, nl S1/S2, no R/M/G,.Resp: CTAB. No rales or wheezing.Abdo: NL BS present, soft AND non-tender,Ext: Good DP/PTs palpable bilaterally. No edema.Neuro: CN's 2-12 intact. Sensation intact to LT in UE/LE B/L. Power 5/5 onUE, +4/5 on bilateral hips.Skin: No rash. No ulcers.Musculoskeletal: Spine: Good ROM, no TTP. Neck: Good flexion/extension/lateral rotation Shoulders: No swelling, no tenderness, good ROM Elbows: No swelling, no tenderness, no flexion contractures, nonodules, good ROM Wrists: + tenderness, with some limitation in flexion and extension Hands: No evidence of synovitis. Right 2nd finger flexion deformitynoted. There is pain on MCP R>L. Able to make full fist bilaterally. Hips: Deferred due to serrano. Knees: No effusion, no tenderness, good ROM Ankles: No swelling, no tenderness, good ROM Feet/Toes/ MTP: No evidence of synovitis, there is pain on [id number] MTP palpation.Investigations:Lab s:Component Latest Ref Rng AND Units 05/05/2017WBC 3.70 - 11.00 k/uL 5.93RBC 4.20 - 6.00 m/uL 5.19Hemoglobin 13.0 - 17.0 g/dL 16.5Hematocrit 39.0 - 51.0 % 48.7MCV 80.0 - 100.0 fL 93.8MCH 26.0 - 34.0 pG 31.8MCHC 30.5 - 36.0 g/dL 33.9RDW-CV 11.5 - 15.0 % 13.3Platelet Count 150 - 400 k/uL 209MPV 9.0 - 12.7 fL 10.2Neut% % 71.6Abs Neut (ANC) 1.45 - 7.50 k/uL 4.24Lymph% % 16.9Abs Lymph 1.00 - 4.00 k/uL 1.00Mono% % 9.1Abs [place] <0.87 k/uL 0.54Eosin% % 1.7Abs Eosin <0.46 k/uL 0.10Baso% % 0.7Abs Baso <0.11 k/uL 0.04Nucleated Reds 0 /100 WBC 0.0Absolute nRBC <0.01 k/uL <0.01Diff Type Auto DiffProtein, Total 6.3 - 8.0 g/dL 7.4Albumin 3.9 - 4.9 g/dL 4.5Calcium 8.5 - 10.2 mg/dL 9.6Bilirubin, Total 0.2 - 1.3 mg/dL 0.2Alkaline Phosphatase 36 - 108 U/L 68AST 14 - 40 U/L 23Glucose 74 - 99 mg/dL 112 (H)BUN 9 - 24 mg/dL 16Creatinine 0.73 - 1.22 mg/dL 1.27 (H)Sodium 136 - 144 mmol/L 140Potassium 3.7 - 5.1 mmol/L 4.2Chloride 97 - 105 mmol/L 101CO2 22 - 30 mmol/L 25Anion Gap 9 - 18 mmol/L 14ALT 10 - 54 U/L 35eGFR- >60eGFR-All Other Races . 60Hep B Core Ab, Total Negative NegativeHep C Antibody IA Negative NegativeHep B Surface Ag Negative NegativeHep B Surface Ab, Qual Negative NegativeUric Acid 4.0 - 8.1 mg/dL 7.6Rheumatoid Factor <16 IU/mL <10CCP Antibody, IgG <20 Units <15CRP <0.9 mg/dL 0.4WSR 0 - 15 mm/hr 5Imaging:Xrays hands05/05/2017Ankylosis of the carpal bones right wrist, with remote fracture deformityof the right fifth metacarpalNo evidence of inflammatory arthropathy.IMPRESSIONS/LAMIN MMENDATIONS:52 year old male with PMHx significant for CAD with coronary dissection,HTN, multiple joint surgeries is evaluated in the Rheumatology Clinic forjoint pain.Polyarticular joint painI have reviewed the patient labs and radiographs, along with taken a fullhistory and physical. It is my impression that patient's presentation isconsistent with seronegative RA. He had an adverse response to POmethotrexate and leflunomide.- We will plan for a re-trial of methotrexate, via subcutaneousadministration with folic acid supplementation.- We have discussed the risks and toxicities associated with the use ofthis medication and the appropriate lab monitoring.Impression and recommendations/plan discussed with the patient in person.Old records and films reviewed as noted above.Consult will be sent to the requesting physician and/or the patient.Laboratory tests and Radiology: As outlined in orders.Aidan Edmondson, Normal [facility] Rheumatoid Factoron 05-05-20 17 Rheumatoid Factor <10 Normal <16 [facility] Comment on above: Performed By: #### C BCDIF, WSR, CRP, RF, URIC, CMP, HREMOP, INFTBG, CCP ####[facility], [place], [place] [phone] Sed Rate Westergrenon 2016 Sed Rate Westergren 5 mm/hr Normal 0-15 [facility] Comment on above: Performed By: #### C BCDIF, WSR, CRP, RF, URIC, CMP, HREMOP, INFTBG, CCP ####[facility] [address], [place] [phone] TB by QuantiFERONon 05-05-20 17 Interpretation No evidence of curre nt or previous infection with Mycobacterium tuberculosis. Normal [facility] Comment on above: Performed By: #### C BCDIF, WSR, CRP, RF, URIC, CMP, HREMOP, INFTBG, CCP ####[facility] [place] [place], [place] [phone] Mitogen Response 7.88 IU/mL Normal >0.49 [facility] Comment on above: Performed By: #### C BCDIF, WSR, CRP, RF, URIC, CMP, HREMOP, INFTBG, CCP ####[place] [id number] [place], [place] [phone] TB Antigen Response 0.05 IU/mL Normal <0.35 [facility] Comment on above: Performed By: #### C BCDIF, WSR, CRP, RF, URIC, CMP, HREMOP, INFTBG, CCP ####[place] [id number] [place], [place] [phone] TB Result Negative Normal Negative [facility] Comment on above: Performed By: #### C BCDIF, WSR, CRP, RF, URIC, CMP, HREMOP, INFTBG, CCP ####[place] [id number] [place], [place] [phone] Uric Acidon 05-05-2017 Urate 7.6 mg/dL Normal 4.0-8.1 [facility] Comment on above: Performed By: #### C BCDIF, WSR, CRP, RF, URIC, CMP, HREMOP, INFTBG, CCP ####[place] [id number] [place], [place] [phone] XR HAND 3V PA/LAT/OBL LTon 1 07-05-2016 XR HAND 3V PA/LAT/OBL LT * * *Final Report* * *DATE OF EXAM: May 05 2017 1:55PM AOX 5345 - XR HAND 3V PA/LAT/OBL LT / REASON: Pain in unspecified joint * * * * Physician Interpretation * * * * XR HAND 3V PA/LAT/OBL LT, XR HAND 3V PA/LAT/OBL RTHISTORY: Pain in multiple joints with concern for inflammatory arthropathy. Patient has had surgery on the right wrist after sustaining a crush injury.TECHNIQUE: Right and left hands, 3 views each.COMPARISON: NoneRESULT:Right hand: Severe degenerative changes of the carpal bones with complete ankylosis of the lunotriquetral joint, and near complete ankylosis of the capitohamate articulation, in keeping with the clinic note of surgical fusion. Degenerative changes at the radiocarpal joint. Deformity along the fifth metacarpal, likely from remote injury. Ossification at the dorsum of the wrist likely represents post traumatic heterotopic mineralization. No acute fracture. No erosions.Left hand: Mild joint space narrowing of the first MCP. No fracture or dislocation. No focal soft tissue abnormality. No erosions. 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, (postsurgical by history) with remote fracture deformity of the right fifth metacarpalNo evidence of inflammatory arthropathy.Ventilator Specialist : NIKOS Transcribe Date/Time: May 05 2017 2:02PDictated by : Scott BEAULIEU examination was interpreted and the report reviewed and electronically signed by: JONATHAN KO MD on May 05 2017 3:02PM [id number] Normal [facility] XR HAND 3V PA/LAT/OBL RTon 1 07-05-2016 XR HAND 3V PA/LAT/OBL RT * * *Final Report* * *DATE OF EXAM: May 05 2017 1:55PM AOX 5346 - XR HAND 3V PA/LAT/OBL RT / REASON: Pain in unspecified joint * * * * Physician Interpretation * * * * XR HAND 3V PA/LAT/OBL LT, XR HAND 3V PA/LAT/OBL RTHISTORY: Pain in multiple joints with concern for inflammatory arthropathy. Patient has had surgery on the right wrist after sustaining a crush injury.TECHNIQUE: Right and left hands, 3 views each.COMPARISON: NoneRESULT:Right hand: Severe degenerative changes of the carpal bones with complete ankylosis of the lunotriquetral joint, and near complete ankylosis of the capitohamate articulation, in keeping with the clinic note of surgical fusion. Degenerative changes at the radiocarpal joint. Deformity along the fifth metacarpal, likely from remote injury. Ossification at the dorsum of the wrist likely represents post traumatic heterotopic mineralization. No acute fracture. No erosions.Left hand: Mild joint space narrowing of the first MCP. No fracture or dislocation. No focal soft tissue abnormality. No erosions. 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 Cosme Berger MD Work Phone: [facility] 10-18-2024 11:02-0400 Body mass index (BMI) [Ratio] 35.5 kg/m2 Dr. Cosme Berger MD Work Phone: [facility] 10-18-2024 11:02-0400 Body weight 102.[address] Cosme Berger MD Work Phone: [facility] 10-14-2024 05:54-0400 Body mass index (BMI) [Ratio] 35.4 kg/m2 Dr. Cosme Berger MD Work Phone: [facility] 10-14-2024 05:54-0400 Body weight 102.[address] Cosme Berger MD Work Phone: [facility] 10-14-2024 05:54-0400 Diastolic blood pressure 84 mm[Hg] Dr. Cosme Berger MD Work Phone: [facility] 10-14-2024 05:54-0400 Heart rate 73 /min Dr. Cosme Berger MD Work Phone: [facility] 10-14-2024 05:54-0400 Respiratory rate 18 /min Dr. Cosme Berger MD Work Phone: [facility] 10-14-2024 05:54-0400 SaO2% (BldA) [Mass fraction] 97 % Dr. Cosme Berger MD Work Phone: [facility] 10-14-2024 05:54-0400 Systolic blood pressure 139 mm[Hg] Dr. Cosme Berger MD Work Phone: [facility] 10-11-2024 11:47-0400 Body temperature 98 [degF] Dr. Cosme Berger MD Work Phone: [phone] [place] [address] 10-11-2024 11:47-0400 Diastolic blood pressure 70 mm[Hg] Dr. Cosme Berger MD Work Phone: 5(498)[phone] [place] [address] 10-11-2024 11:47-0400 Heart rate 78 /min Dr. Cosme Berger MD Work Phone: [phone](857)[phone] [place] [address] 10-11-2024 11:47-0400 Respiratory rate 18 /min Dr. Cosme Berger MD Work Phone: [phone] [place] [address] 10-11-2024 11:47-0400 SaO2% (BldA) [Mass fraction] 99 % Dr. Cosme Berger MD Work Phone: [facility] 10-11-2024 11:47-0400 Systolic blood pressure 124 mm[Hg] Dr. Cosme Berger MD Work Phone: [facility] 10-11-2024 09:06-0400 Body mass index (BMI) [Ratio] 36.6 kg/m2 Dr. Cosme Berger MD Work Phone: [facility] 10-11-2024 09:06-0400 Body weight 106.[address] Cosme Berger MD Work Phone: [facility] 08-20-2022 08:10-0400 Diastolic Blood Pressure Non-Invasive 86 1 CONSTANTINO BERGMAN MD Management 08-20-2022 08:10-0400 Heart rate 66 /min CONSTANTINO BERGMAN MD [facility] 08-20-2022 08:10-0400 Respiratory rate 13 /min CONSTANTINO BERGMAN MD [facility] 08-20-2022 08:10-0400 Systolic Blood Pressure Non-Invasive 125 1 CONSTANTINO BERGMAN MD [facility] 08-20-2022 08:02-0400 Diastolic Blood Pressure Non-Invasive 71 1 CONSTANTINO BERGMAN MD [facility] 08-20-2022 08:02-0400 Heart rate 77 /min CONSTANTINO BERGMAN MD [facility] 08-20-2022 08:02-0400 Respiratory rate 10 /min CONSTANTINO BERGMAN MD [facility] 08-20-2022 08:02-0400 Systolic Blood Pressure Non-Invasive 120 1 CONSTANTINO BERGMAN MD [facility] 08-20-2022 07:44-0400 Diastolic Blood Pressure Non-Invasive 97 1 CONSTANTINO BERGMAN MD [facility] 08-20-2022 07:44-0400 Heart rate 73 /min CONSTANTINO BERGMAN MD [facility] 08-20-2022 07:44-0400 Respiratory rate 16 /min CONSTANTINO BERGMAN MD [facility] 08-20-2022 07:44-0400 Systolic Blood Pressure Non-Invasive 144 1 CONSTANTINO BERGMAN MD [facility] 08-20-2022 07:30-0400 Body height 170 cm CONSTANTINO BERGMAN MD [facility] 08-20-2022 07:30-0400 Body weight 99.6 kg CONSTANTINO BERGMAN MD [facility] 08-20-2022 07:30-0400 Body weight 34.46 kg/m2 CONSTANTINO BERGMAN MD [facility] 08-20-2022 07:30-0400 Heart rate 82 /min CONSTANTINO BERGMAN MD [facility] 11-19-2021 11:12-0400 Diastolic blood pressure 72 mm[Hg] Dr. Cosme Berger Work Phone: [facility] Work Phone: 11-19-2021 11:12-0400 Heart rate 80 /min Dr. Cosme Berger Work Phone: [facility] Work Phone: 11-19-2021 11:12-0400 Systolic blood pressure 105 mm[Hg] Dr. Cosme Berger Work Phone: [facility] Work Phone: 11-19-2021 10:44-0400 Body height 170.[address] Cosme Berger Work Phone: [facility] Work Phone: 11-19-2021 10:44-0400 Body weight 94.[address] Cosme Berger Work Phone: [facility] Work Phone: 11-19-2021 10:44-0400 Respiratory rate 16 /min Dr. Cosme Berger Work Phone: [facility] Work Phone: 12-19-2020 08:26-0400 Body mass index (BMI) [Ratio] 34 kg/m2 Dr. Cosme Berger Work Phone: [facility] Work Phone: Encounters Encounter Date Encounter Type Care Provider Facility Start: 10-18-2024 End: 10-18-[address] Juma Hamilton MD -[facility] Start: 10-18-2024 End: 10-18-[address] Cosme Berger MD Work Phone: [facility] Work Phone: Start: 10-14-2024 End: 10-14-2024 Patient encounter procedure Angie BRODERICK -[facility] Work Phone: Start: 10-14-2024 End: 10-14-2024 ambulatory Angie BRODERICK Facility:[facility] Start: 10-11-2024 End: 10-11-2024 Emergency department patient visit Dr. Flaquito Huerta DO -Emergency Department Work Phone: Start: 07-14-2024 End: 07-14-2024 Patient encounter procedure Jamia Summers -Laboratory Work Phone: Start: 07-14-2024 End: 07-14-2024 ambulatory Jamia Summers Facility:[facility] Start: 01-11-2024 End: 01-11-2024 ambulatory Cosme Berger Facility:[facility] Start: 12-18-2023 End: 12-18-2023 ambulatory Cosme Berger Facility:[facility] Start: 11-12-2023 End: 11-12-2023 ambulatory Angie BRODERICK Facility:[facility] Start: 10-06-2023 End: 10-06-2023 ambulatory [facility] Work Phone: Start: 10-06-2023 End: 10-06-2023 Patient encounter procedure [facility], [facility] Work Phone: Start: 11-18-2022 End: 11-19-2022 ambulatory COSME BERGER MD Facility:A Start: 08-20-2022 End: 08-20-2022 ambulatory COSME BERGER MD Facility:[facility] Start: 08-20-2022 End: 08-20-2022 Minor Procedure CONSTANTINO BERGMAN MD [facility] Start: 08-05-2022 End: 08-06-2022 ambulatory COSME BERGER MD Facility:[facility] Start: 07-08-2022 End: 07-09-2022 ambulatory CONSTANTINO BERGMAN MD Facility:[facility] Start: 07-08-2022 End: 07-08-2022 Patient encounter procedure CONSTANTINO BERGMAN MD [facility] Start: 07-07-2022 End: 07-08-2022 ambulatory CONSTANTINO BERGMAN MD Facility:[facility] Start: 07-07-2022 End: 07-07-2022 Patient encounter procedure CONSTANTINO BERGMAN MD [facility] Start: 05-26-2022 End: 05-26-2022 ambulatory [facility] Work Phone: Start: 05-26-2022 End: 05-26-2022 Patient encounter procedure [facility], [facility] Start: 11-19-2021 End: 11-19-[address] Cosme Berger Work Phone: [facility] Start: 11-19-2021 End: 11-19-[address] Cosme Berger Work Phone: [facility] Start: 11-18-2021 End: 11-18-[address] Cosme Berger Work Phone: [facility] Start: 08-13-2017 End: 08-13-2017 [facility] Start: 08-05-2017 End: 08-07-2017 [facility] Start: 07-10-2017 Ambulatory AIDAN EDMONDSON [facility] Start: 07-10-2017 End: 07-10-2017 Ambulatory AIDAN EDMONDSON [facility] Start: 05-05-2017 End: 05-05-2017 Ambulatory AIDAN EDMONDSON [facility] Start: 05-05-2017 End: 05-08-2017 Ambulatory AIDAN EDMONDSON [facility] Procedures Date Procedure Procedure Detail Performing Clinician Start: 10-11-2024 Plain chest X-ray Dr. Dewayne Berger MD Work Phone: Start: 10-11-[address] Cosme Berger MD Work Phone: Start: 07-14-2024 Assay of prostate sp ecific antigen total Dr. Cosme Berger MD Work Phone: Comment on above: This test was perfor med using the TPSA assay method for the[employer] chemistry system. Values obtained with differentassay methods cannot be used interchangably.When changing PSA assays in the course of monitoring apatient, additional sequential testing should be carriedout to confirm baseline values. Start: 11-03-2023 History of placement of stent for coronary artery disease History of coronary artery stent placement Angie BRODERICK Comment on above: PCI-FLORY-Mid LAD with 3.00 x 24 synergy FLORY 11/25/2016;[id number]-[id number], Mid and Distal RCA all with 3.0 x 28 mm Promus synergy stents 06/25/16;FLORY to Otial Diagonal 1 (2.25X18 [place]) and FLORY to mid RCA (3.0x12 [place]) 11/03/23 Start: 10-06-2023 Plain x-ray of pelvi s and lower extremity Start: 08-20-2022 PM TPI 3 or more [address] [place]es SN 1 CONSTANTINO BERGMAN MD Comment on above: auto-populated from documented surgical case Start: 05-26-2022 Radiography of thora cic spine Start: 11-25-2016 History of placement of stent for coronary artery disease History of coronary artery stent placement Dr. Cosme Berger Work Phone: Plan of Treatment Date Care Activity Detail Author Start: 10-18-2024 X-ray of lumbosacral spine L/S Spine Min 4 Views [facility] Start: 10-18-2024 XR Spine Lumbar and Sacrum GE 4 Views [facility] Start: 10-14-2024 Evaluation of diagno stic study results [facility] Start: 10-11-2024 [facility] Start: 10-11-2024 [facility] panel - S carmencita or Plasma [facility] NM Heart Views W str ess and W radionuclide IV [facility] Work Phone: Nuclear Ab [Presence ] in Serum [facility] Work Phone: Patient Education ED Sciatica [facility] Work Phone: Patient referral [facility] Work Phone: Carotid arteries [facility] Work Phone: Payers Date Payer Category Payer Medicare [id number] 2023 Self-pay [id number] 2022 Private Health Insurance [facility] [id number] 2020 Private Health Insurance [facility] [id number] 2016 Unknown [id number] 1966 Unknown [id number] 2.16.8 [id number] 1966 Unknown [id number] 2.16.8 [id number] 1966 Unknown [id number] 2.16.8 [id number] 1966 Unknown [id number] 2.16.8 [id number] 1966 Unknown [id number] 2.16.8 [id number] Medicare [id number] Unknown [id number] 2.16.8 [id number] Unknown [id number] 2.16.8 [id number] Unknown [id number] 2.16.8 [id number] Unknown [id number] 2.16.8 [id number] Unknown [id number] 2.16.8 [id number] Unknown [id number] 2.16.8 [id number] Unknown [id number] 2.16.8 [id number] Unknown [id number] 2.16.8 [id number] Social History Date Type Detail Facility Start: 11-19-2021 End: 06-12-2023 Tobacco smoking status NDIS Unknown if ever smoked [facility] Start: 12-19-2020 Occasional [facility] Start: 08-22-2018 None [facility] Start: 08-22-2018 Spouse/ Signif icant Other [facility] Start: 1965 Sex Assigned At Male [facility] Start: 07-28-2020 End: 10-11-2024 Tobacco smoking status Never smoked tobacco (finding) [facility] Sex Assigned At Sex [facility] Start: 08-31-2016 Non-smoker [facility] Medical Equipment Procedure Code Equipment Code Equipment Origin al Text Equipment Identifier Dates Drug-eluting coronary artery stent, [id number] lymer-coated ()[id number] [facility] Start: 10-30-2023 Drug-eluting coronary artery stent, [id number]-hd lymer-coated ()[id number] FDA Start: 10-30-2023 Functional Status Date Assessment Result Facility 08-20-2022 Functional Status Maintained [facility] Mental Status Date Assessment Result Facility 08-20-2022 Mental Status Orientation Oriented x 4 [facility] Clinical Notes 06-08-2016 to 10-14-2024 Note Date & Type Note Facility 10-14-2024 Evaluation note Diagnosis Onset Date Resolution 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 Discharge Instructions POST PROCEDURE INSTRUCTIONS There are no general limitations to your activities. You may experience some weakness for the next 3-4 hours, in which case you should limit your activity until strength and sensation returns. x Your pain may increase for the next 24-48 hours, until the injection begins to relieve your pain. Rest at home today. Do not drive any vehicle, operate any heavy machinery or use any sharp objects for the remainder ofthe day. Be cautious of stairways, since your coordination may be impaired and do not drink alcoholic beverages or make major decisions for ours. May resume driving a car in hours. x Resume regular activity. x Resume your regular diet. Progress diet slowly, starting with water. If no difficulty with swallowing, progress to clear liquids (tea, broth, subha samantha) and then on to solids. Resume aspirin products/blood thinners in hours. Start Lovenox injections on date . x Keep bandaid dry and remove in [address] [facility] 03-15-2023 Summary of episode note Discharge Instructions Thank you for allowing [facility] to assist you with your healthcare needs. The following is importantdischarge information regarding your hospital visit. Your Care Team COSME BERGER MD Your Diagnosis Myalgia Chronic pain Spondylosis of lumbar region without myelopathy or radiculopathy Thoracic spondylosis Right hip pain Allergies Livalo CeleBREX (Adverse drug reaction) Crestor (Adverse drug reaction) DULoxetine (Adverse drug effect) FLUoxetine (Reaction) Lyrica (Adverse drug effect) Vicodin cloNIDine (Adverse drug reaction) gabapentin (Adverse drug reaction) meloxicam (Adverse drug effect) methocarbamol (Adverse drug reaction) montelukast (Adverse drug reaction) nabumetone (Reaction) pravastatin (Adverse drug effect) predniSONE (Adverse drug effect) simvastatin (Reaction) tamsulosin (Adverse drug reaction) tiZANidine (Adverse drug reaction) topiramate (Adverse drug reaction) traMADol (Adverse drug reaction) Medications Please ask your primary doctor or pharmacist before taking any other medication not listed, including over the counter drugs, herbal medications, vitamins and or supplements as they may interact withyour home medications. What How Much When Instructions Last Dose Unchanged aspirin (aspirin 81 mg oral tablet (chewable)) 1 tab(s) by mouth Every day Unchanged clopidogrel (clopidogrel 75 mg oral tablet) 1 tab(s) by mouth Once a day Unchanged doxazosin (doxazosin 4 mg oral tablet) 1 tab(s) by mouth Every day Unchanged ezetimibe (ezetimibe 10 mg oral tablet) 1 tab(s) by mouth Once a day Unchanged fenofibrate (fenofibrate 145 mg oral tablet) 1 tab(s) by mouth Once a day Unchanged ibuprofen 600 Milligram Once a day Unchanged losartan (losartan 25 mg oral tablet) 0.5 tab(s) by mouth Once a day Unchanged metoprolol (Lopressor 25mg--USE metoprolol tartrate 25 mg oral tablet) 1 tab(s) by mouth Two (2) times a day Unchanged omeprazole (omeprazole 20 mg oral delayed release capsule) 1 cap by mouth Once a day Unchanged traZODone (traZODone 150 mg oral tablet) 0.5 tab(s) by mouth Daily at bedtime 75mg q HS Please take this list to your next doctor s visit. Bring all medications you take, including over the counter medications, herbals and other supplements with you to your doctor s visit. Patients and families are reminded to discard old lists and to update any records with all medication providers or retail pharmacies. Education Materials [facility] Discharge Instructions POST PROCEDURE INSTRUCTIONS There are no general limitations to your activities. You may experience some weakness for the next 3-4 hours, in which case you should limit your activity until strength and sensation returns. x Your pain may increase for the next 24-48 hours, until the injection begins to relieve your pain. Rest at home today. Do not drive any vehicle, operate any heavy machinery or use any sharp objects for the remainder ofthe day. Be cautious of stairways, since your coordination may be impaired and do not drink alcoholic beverages or make major decisions for ours. May resume driving a car in hours. x Resume regular activity. x Resume your regular diet. Progress diet slowly, starting with water. If no difficulty with swallowing, progress to clear liquids (tea, broth, subha samantha) and then on to solids. Resume aspirin products/blood thinners in hours. Start Lovenox injections on date . x Keep bandaid dry and remove in 24 hours. Additional Information VACCINATE! IT SAVES LIVES! Members of the community who have not yet received the COVID-19 vaccine and would like to receive it can visit one of [facility] vaccine clinics. There are many vaccine clinic locations within the [facility]. For locations and available times, please visit https://gettheshot.coronavirus.[place].gov/. It is important to note that some COVID mobile vaccine clinics are held outdoors and may be canceled in rainy or stormy conditions. To learn more about pediatric vaccinations (ages 5-11), we invite you to visit the [facility] webpage. [email or web address].[email or web address].[email or web address]/[email or web address] [email or web address] learn more about the COVID-19 vaccine, we invite you to visit the CDC website for a list of frequently asked questions. https://www.cdc.gov/coronavirus/2019-ncov/vaccines/faq.html [facility] Patient Portal Access Instructions: Stay connected with your healthcare team and access your personal medical information anytime with the [facility] Patient Portal.If you would like a full copy of your medical records, please contact the [facility] Medical Records Department, Thursday through Thursday between 8a.m. and 4:30p.m. Please follow the directions below to access the portal: 1.Access the email account you provided upon registration to the [facility].2.Look for an invitation email from [facility].3.Open the email and access the invitation link: Accept Invitation to [facility].Fill in the required walker to create your account. Sign into www.[employer] with your username and password that you created in the above steps to stay up to date. You can then view a summary of results, a summary of your visits, and the ability to download your summaries to your computer or send the information securely to a physician. Remember that your healthcare information is confidential, so carefully consider who you will allow to register on the [employer] Patient Portal for access to your information. You can also access the [employer] Patient Portal on the [employer] suzanne. Simply click on Health Records under [employer] and then click on the [employer] logo. HOW TO SAFELY DISPOSE OF PRESCRIPTION MEDICATIONS Please use one of the following methods to safely dispose of your unused medications. 1.Use a drug disposal kit: the drug disposal pouch allows you to safely discard your old and unuseddrugs. Ask your nurse to give you one when you are discharged.2.Visit a local take-back location: Many local pharmacies and police departments have programs that collect old and unwanted prescriptiondrugs. Call your local pharmacy or go to http://TableGrabber.Meitu/7K4Hl1q to find one close to you.3.Make use of household items: Use cat litter or old coffee grounds to dispose medications if other options arenot available. Mix your drugs with these household products, seal them in an airtight container andthrow it into the garbage. Call [facility]: [phone] to be sure your drugs can be disposed of in this way. Some medicines may require a different approach.4.Never flush your medications down the toilet. IF YOU HAVE BEEN PRESCRIBED AN OPIOID FOR PAIN If you have been prescribed an opioid (such as hydrocodone, oxycodone or morphine), it is critical to understand the possible side effects and risks of opioid pain medications. Even when taken as directed, opioids can have several side effects including: Tolerance, meaning you might need to take more of a medication for the same pain relief. Nausea, vomiting and/or constipation. Sleepiness, dizziness, dry mouth, confusion, depression or itching. Physical dependence, meaning you have withdrawal symptoms when a medication is stopped, can develop within a few days. KNOW YOUR RESPONSIBILITIES It is important to know exactly how much and how often to take the opioid pain medications you are prescribed. Never take opioids in higher amounts or more often than prescribed. Do not combine opioids with alcohol or other drugs that cause drowsiness, such as benzodiazepines, also known as benzos, including diazepam and alprazolam, muscle relaxants or sleep aids. Never sell or share prescription opioids. This is illegal. Store opioids in a secure place and out of reach of others (including children, family, friends and visitors). The last page of this document has been signed and retained as a CHART COPY. Signatures Patient Education Materials Discharge trigger WBECKI ([id number]) Medication Leaflets My discharge plan and instructions have been reviewed and explained to me and I,ARYAN ROBERTS understand my current condition and have read and understand these discharge instructions. I have received a written copy of the plan/instructions. If I have questions, I am aware that I should contact my doctor. 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 History and Physical Chief Complaint C/o aching generalized joint pain and pins & needles. Pt states medial low back, knees and bilateral hip pain is worse today. History of Present Illness Patient returns today for first follow-up appointment. He was a new patient July 07. 20-year history of widespread pain thoracic and lumbar primarily but also right hip describes vague intermittent paresthesias of hands and feet. Since last seen we did obtained blood work including testosterone level which was normal uric acid level normal vitamin D is low normal at 36 sedimentation rate 4. I do not see results from the rheumatoid factor and JOSE screen. Did not obtain any other records from Dr. Narvaez which were requested. The day of the visit he obtained lumbar x-rays with flexion-extension views significant mild to moderate spondylosis facet hypertrophy at multiple levels there is no segmental instability on lumbar films. Right hip x-ray was normal. At last visit initiated low-dose baclofen he says he tried that for a couple of weeks but it made him too tired because dry mouth so he discontinued the medication. Recall he does take Plavix and aspirin for cardiac problems. He says when he takes ibuprofen he feels a lot better but he is taking antiplatelet drugs so probably should avoid NSAIDs routinely. He says primary care physician Dr. Berger did give him meloxicam in the past which was not effective. He takes no opiates Physical Exam Vitals and Measurements HR: 79 RR: 18 BP: 129/85 SpO2: 96% HT: 170 cm WT: 99.6 kg BMI: 34.46 Oxygen Therapy: Room air Primary Pain Intensity: 8 (08/05/22 08:07:00) Alert pleasant male good muscular development. No atrophy no swelling. Back inspected no rash normal lordosis. He does have marked tenderness palpation right lumbar paraspinals and right gluteus demetria. Only minimal tenderness left lumbar paraspinals. Hip rotation normal. He has 2+ reflexes throughout upper and lower extremities tone is normal. Independent with sit to stand transfers and gait. Imaging Results and Diagnostics (07/08/2022 10:47 EST XR Spine Lumbar Ap/Lat/Flex/Ext) ORIGINAL EXAMINATION: AP lateral flexion and extension 4 XRAY VIEWS OF THE LUMBAR SPINE07/08/2022 10:50 am COMPARISON: None HISTORY: ORDERING SYSTEM PROVIDED HISTORY: Reason for Exam: Severe back pain radiating to hip FINDINGS: 5 lumbar-type vertebral bodies show normal height and AP alignment in the neutral position. There is no instability with flexion and extension. No significant disc space narrowing. Multilevel endplate spurring and mild to moderate lower lumbar spine facet arthropathy. Symmetric SI joints. No sacral lesion. IMPRESSION: Degenerative changes. No acute finding or dynamic instability. Interpreted by: Royer Lopez MD Preliminary Report By: Royer Lopez MD Electronically signed By Royer Lopez MD Dictated Date: 07/09/2022 3:11:24 PM Prelim Date: 07/09/2022 3:12:14 PM Sign Date: 07/09/2022 3:12:14 PM Ordering Provider: CONSTANTINO BERGMAN [1] (07/08/2022 10:44 EST XR Hip Minimum 2 Views Right) ORIGINAL EXAMINATION: TWO XRAY VIEWS OF THE RIGHT HIP07/08/2022 10:50 am HIP AP and LATERAL RIGHT XR right hip two views COMPARISON: Pelvis 12/18/2015 HISTORY: ORDERING SYSTEM PROVIDED HISTORY: Reason for Exam: Right hip pain and limited motion, FINDINGS: No acute fracture, dislocation, lytic process or periosteal reaction is seen in the visualized bones and joints. No erosive type of arthritis. No periarticular soft tissue calcification. There is mild right hip osteoarthritis without joint space narrowing. Normal right SI joint. IMPRESSION: No acute skeletal abnormality is seen. . Mild osteoarthritis. Interpreted by: Royer Lopez MD Preliminary Report By: Royer Lopez MD Electronically signed By Royer Lopez MD Dictated Date: 07/09/2022 3:12:44 PM Prelim Date: 07/09/2022 3:13:16 PM [2] Social History Smoking Status - 07/15/2007 Patient is non-smoker Alcohol Use: Current. Frequency: 1-2 times per month., 07/28/2020 Substance Abuse Use: Never., 07/28/2020 Tobacco Nicotine Use: Never (less than 100 in lifetime)., 07/28/2020 Assessment/Plan 1. Myalgia Chronic myalgia right lumbar and right gluteal. Some underlying lumbar spondylosis but no instability. Neurologic exam nonfocal. Talk to patient about trigger point injection as he would be in favor of this will use Toradol try right lumbar and gluteal next available in about 2 weeks. In the meantime we will formally discontinue baclofen A trial of metaxalone 800 mg 3 times daily for 10 days. May take it only as needed if he chooses. 30 tablets prescribed. Unsure about cost and insurance coverage. If excessive cost he will not fill the prescription and call here. Ordered: metaxalone, Dose : 800 mg = 1 tab(s), Oral, TID, X 10 day(s), # 30 tab(s), 0 Refill(s), 08/15/22 8:40:00 EST, Pharmacy: [id number], Myalgia Chronic pain, 170, cm, 08/05/22 8:07:00 EST, Height PM TPI 3 or more Muscles [id number] 2. Chronic pain 20-year history of chronic pain treated by numerous other physicians including a long relationship with Dr. Narvaez. Based on lab work no sinister underlying inflammatory process or gout. Testosterone level normal. Vitamin D level is low normal so I suggest she increase oral supplement perhaps 1000 units daily at least during the winter months. Ordered: metaxalone, Dose : 800 mg = 1 tab(s), Oral, TID, X 10 day(s), # 30 tab(s), 0 Refill(s), 08/15/22 8:40:00 EST, Pharmacy: [id number], Myalgia Chronic pain, 170, cm, 08/05/22 8:07:00 EST, Height PM TPI 3 or more Muscles 3. Spondylosis of lumbar region without myelopathy or radiculopathy Ordered: PM TPI 3 or more Muscles 4. Thoracic spondylosis Ordered: PM TPI 3 or more Muscles 5. Right hip pain Right hip x-rays normal reviewed with patient. Likely muscular component of pain. Ordered: PM TPI 3 or more Muscles 6. Coronary artery disease Taking Plavix and aspirin so ideally need to avoid NSAIDs routinely. Problem List/Past Medical History Ongoing Chronic pain Coronary artery disease Low back pain with sciatica Myalgia Paresthesia of both legs Right hip pain Spondylosis of lumbar region without myelopathy or radiculopathy Thoracic spondylosis Historical No qualifying data Procedure/Surgical History No qualifying data available. Allergies Livalo CeleBREX (Adverse drug reaction) Crestor (Adverse drug reaction) DULoxetine (Adverse drug effect) FLUoxetine (Reaction) Lyrica (Adverse drug effect) Vicodin cloNIDine (Adverse drug reaction) gabapentin (Adverse drug reaction) meloxicam (Adverse drug effect) methocarbamol (Adverse drug reaction) montelukast (Adverse drug reaction) nabumetone (Reaction) pravastatin (Adverse drug effect) predniSONE (Adverse drug effect) simvastatin (Reaction) tamsulosin (Adverse drug reaction) tiZANidine (Adverse drug reaction) topiramate (Adverse drug reaction) traMADol (Adverse drug reaction) [1] [1] Specialty Office Visit Note; CONSTANTINO BERGMAN MD 08/05/2022 08:49 EST Digitally Signed by CONSTANTINO BERGMAN MD on 08/20/2022 07:28 AM [facility] [id number] Evaluation note* Diagnosis Onset Date Resolution Status Coronary artery dissection June, acute Dizziness acute Atherosclerotic heart diseas e sw[place]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 chronic Essential hypertension chron ic History of coronary artery stent placement November 25, 2016 chronic Hypercholesterolemia chronic [facility] Work Phone: Evaluation + Plan note Future Appointments Appointment Date:08/05/2022 08:00:00 AM Scheduled Provider:CONSTANTINO BERGMAN MD Location:PM Office Appointment Type:PM OV Future Scheduled Tests Laboratory* Antinuclear Antibody Screen, Serum 07/07/22 * Testosterone Level Total 07/07/22 * Uric Acid 07/07/22 * Rheumatoid Factor 07/07/22 * Sedimentation Rate Automated 07/07/22 * Vitamin D Level 07/07/22 Radiology* XR Hip Minimum 2 Views Right 07/07/22 * XR Spine Lumbar AP/LAT/FLEX/EXT 07/07/22 [facility] Evaluation + Plan note Future Appointments Appointment Date:08/05/2022 08:00:00 AM Scheduled Provider:CONSTANTINO BERGMAN MD Location:PM Office Appointment Type:PM OV Diagnostic Tests Pending * Rheumatoid Factor 07/08/22 * Antinuclear Antibody Screen, Serum 07/08/22 [facility] Evaluation + Plan note Future Appointments Appointment Date:09/26/2022 09:00:00 AM Scheduled Provider:CONSTANTINO BERGMAN MD Location:PM Office Appointment Type:PM OV [facility] Evaluation noteNo assessment information available [facility] Work Phone: Hospital course Narrative No data available for this section [facility] Hospital Discharge instructions No data available for this section [facility] progress note No data available for this section [facility] reason for referral (narrative)No reason for referral [facility] Work Phone: Summary Purpose Family History No Family History Records Found Relationship Condition Age at Onset Recorded Date/T chad mother Coronary artery disease Unknown Rheumatic fever Unknown brother Coronary artery disease Unknown Advance Directives No Advanced Directives Records Found Advance Directive Response Recorded Date/ Time Advance Directives No June 25, 2016 11:33am Living Will No August 22, 2018 6:22pm Power of Regulatory Compliance Coordinator No August 22 6:22pm Advance Directive Response Recorded Date/ Time Advance Directives No June 25, 2016 10:33am Living Will No August 22, 2018 5:22pm Power of Regulatory Compliance Coordinator No August 22 5:22pm Advance Directive Response Recorded Date/ Time Do you have a Healthcare Power of Regulatory Compliance Coordinator? No October 11, 2024 9:17am Advance Directives No June 25, 2016 11:33am Procedure Findings Note [facility] Patient Name: ARYAN ROBERTS [employer] [address] Date of : [address] [place], [place] [address] Unit Number: [id number] Procedure Note Patient Status: [facility] Attending Doctor: Issa Menard MD Service Date: 10/27/19 0835 Procedure Note Indication for Procedure No previous colonoscopy Preop for tomorrow Abdominal pain Site of Procedure MAC 1 Consent Obtained Yes Procedure Type Colonoscopy Postop diagnosis is 1 moderate diverticulosis 2 moderate to large internal hemorrhoids 3 colonic polyps x5 4 in the rectosigmoid area with 2 being removed with snare cautery and 2 being removed with cold biopsy forceps, one in the sigmoid colon removed with snare cautery. Description of Procedure Consent the patient gives me permission to talk to [his ] about the procedure. The indication(s), alternatives, risks and potential complications including, but not limited to, bleeding, infection, risk of sedation, perforation, and missing a lesion were di (more content not included)... Chief Complaint and Reason for Visit Chief Complaint 10 m fu E ORDER Reason for Visit Coronary artery diss ection Dizziness Atherosclerotic heart disease sw[place]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 Essential hypertension History of coronary artery stent placement Hypercholesterolemia Chief Complaint Admit Date CHRONIC BACK PAIN October 11, 2024 8:27am s/p ER but something still not right M ay 2024 8:19am LUMBAR SPINE October 18, 2024 10:44 am RM 1 October 18, 2024 11:20 am Reason for Visit Admit Date Atherosclerotic heart diseas e [place]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 October 14, 2024 8:19am Essential hypertension October 14, 2024 8:1 9am History of coronary artery stent placeme nt October 14, 2024 8:19am Hypercholesterolemia October 14, 2024 8:19a m Coronary artery dissection October 14, 2024 8:19am Additional Source Comments (unrecognized sect ion and content) No Status Records FoundNo Status Records FoundNo Status Records FoundNo Status Records Found INFORMATION SOURCE (unrecogn ized section and content) DATE CREATED AUTHOR 11/27/2017 [facility] DATE CREATED AUTHOR AUTHOR'S ORGANIZ ATION 08/02/2020 [facility] DATE CREATED AUTHOR AUTHOR'S ORGANIZ ATION 11/29/2022 [facility] DATE CREATED AUTHOR AUTHOR'S ORGANIZ ATION 11/04/2024 [facility] Goals (unrecognized section and content) Goals may be documented in a n alternate sectionGoals may be documented in an alternate sectionGoals may be documented in an alternate section No data available for this section No data available for this section No data available for this sectionGoals may be documented in an alternate sectionGoals may be documented in an alternate sectionGoals may be documented in an alternate section Care Team (unrecognized sect ion and content) Care Team Personnel Name: COSME BERGER MD Position: P3 Physician - Family Medicine Member Role: Primary Care Physician Address: Address: [address] [place] [address] [address] Care Team Related Persons Name: SUZIE FAY Care Team Personnel Name: COSME BERGER MD Position: P3 Physician - Family Medicine Member Role: Primary Care Physician Address: Address: [address] [place] [address] [address] Care Team Related Persons Name: SUZIE FAY Patient Care team informatio n (unrecognized section and content) Team Status: Active Member Role Status Dates Dr. Cosme Berger MD Family Provider Active Dr. Cosme Berger MD Primary Care Provider Active Team Status: Inactive Member Role Status Dates Dr. Cosme Berger MD Primary Care P elizabeth, Attending Provider, Referring Provider Active Team Status: Active Member Role Status Dates Dr. Cosme Berger MD Primary Care Provider Active Team Status: Inactive Member Role Status Dates Dr. Cosme Berger MD Primary Care Provider Active Start: July 14, 2024 End: July 14, 2024 Jamia Lundberging Attending Provider Active Start : July 14, 2024 End: July 14, 2024 Jamia Summers Referring Provider Active Start : July 14, 2024 End: July 14, 2024 Team Status: Inactive Member Role Status Dates Dr. Cosme Berger MD Primary Care Provider Active Start: October 11, 2024 End: October 11, 2024 Dr. Flaquito Huerta DO Attending Provider Active Start: October 11, 2024 End: October 11, 2024 Dr. Flaquito Huerta DO Emergency Provider Active Start: October 11, 2024 End: October 11, 2024 Team Status: Inactive Member Role Status Dates Dr. Cosme Berger MD Primary Care Provider Active Start: October 14, 2024 End: October 14, 2024 Dr. Cosme Berger MD Referring Provider Active Start: October 14, 2024 End: October 14, 2024 Angie BRODERICK PA Attending Provider Active Start: October 14, 2024 End: October 14, 2024 Team Status: Active Member Role Status Dates Dr. Cosme Berger MD Primary Care Provider Active Start: October 18, 2024 Dr. Cosme Berger MD Referring Provider Active Start: October 18, 2024 DAVIE Zuñiga Attending Provider Active Star t: October 18, 2024 Team Status: Inactive Member Role Status Dates Dr. Cosme Berger MD Primary Care Provider Active Start: October 18, 2024 End: October 18, 2024 Dr. Juma Hamilton MD Attending Provider Active S tart: October 18, 2024 End: October 18, 2024 Team Status: Inactive Member Role Status Dates Dr. Cosme Berger MD Primary Care Provider Active Start: October 18, 2024 End: October 18, 2024 Dr. Cosme Berger MD Referring Provider Active Start: October 18, 2024 End: October 18, 2024 DAVIE Zuñiga Attending Provider Active Star t: October 18, 2024 End: October 18, 2024 FOR RECORDS PERTAINING TO PATIENTS WHO ARE OR HAVE BEEN ENROLLED IN A CHEMICAL DEPENDENCY/SUBSTANCEABUSE PROGRAM, SOME INFORMATION MAY BE OMITTED. This clinical summary was aggregated from multiple sources. Caution should be exercised in using it in the provision of clinical care. This summary normalizes information from multiple sources, and as a consequence, information in this document may materially change the coding, format and clinical context of patient data. In addition, data may be omitted in some cases. CLINICAL DECISIONS SHOULD BE BASED ON THE PRIMARY CLINICAL RECORDS. [employer] [facility]. provides no warranty or guarantee of the accuracy or completeness of information in this document.
--- NOTE | 2024-11-26 11:45 | MRI_ITS ---
PROCEDURE: SPINE LUMBAR (ROUTINE) 11/26/2024 REASON FOR EXAM: PAIN TECHNIQUE: SPINE LUMBAR (ROUTINE) COMPARISON: Radiograph on 10/11/2024. FINDINGS: Mild diffuse spondylosis. Mild multilevel degenerative disc disease. There is normal signal intensity from the visualized bone marrow without evidence of replacement or acute fracture. The conus is unremarkable. Normal lumbar lordosis. Evaluation of the individual levels revealed the following: L5-S1: There is grade 1 retrolisthesis measuring 3.2 mm. Mild diffuse disc bulge. Bilateral facet joint arthropathy. The spinal canal is not narrowed. There is mild bilateral neural foramina narrowing. L4-5: There is grade 1 retrolisthesis measuring 3.4 mm. Mild diffuse disc bulge. Bilateral facet joint arthropathy and ligamentum flavum hypertrophy. The spinal canal is not narrowed. There is mild bilateral neural foramina narrowing. L3-4: There is mild diffuse disc bulge. The spinal canal is not narrowed. There is mild bilateral neural foramina narrowing. L2-3: There is minimal diffuse disc bulge. The spinal canal is not narrowed. There is no evidence of neural foramina narrowing. L1-2: There is minimal diffuse disc bulge. The spinal canal is not narrowed. There is no evidence of neural foramina narrowing. Normal visualized paraspinous soft tissue structures. MRI/Spine Lumbar (Routine) IMPRESSION: Degenerative disc disease. [facility]
== END | disposition home or self-care (01) ==
PROVIDERS: PCP Family Medicine; Referring Provider Student in an Organized Health Care Education/Training Program; Visit Provider Student in an Organized Health Care Education/Training Program
DX: M51.369 Other intervertebral disc degeneration, lumbar region without mention of lumbar back pain or lower extremity pain (principal)
CPT/HCPCS: 72148

== ENCOUNTER 2024-12-13 09:06 | Day surgery (SDC) | payer MEDICARE, SELFPAY ==
[2016-11-25 13:03] VITALS: BMI 32.7
--- NOTE | 2024-12-05 18:04 | PAT.ANE_ITS ---
Pre-Assessment Diagnosis/Proposed Procedure Planned Operative Procedure(s): UMBILCAL HERNIA Anesthesia History Anesthesia History - special education associate: Anesthesia History - special education associate Hx Hospitalization Yes: 2 [facility], 10/202312/01/24 11:14 Any Problems With Anesthesia No 12/01/24 11:14 Cholinesterase deficiency No 12/01/24 11:14 You/Your Family Experience No 12/01/24 11:14 fever (hyperthermia) with Relationship Recent Exposure to Contagious Disease Does patient have nerve No 12/01/24 11:14 stimulator Patient instructed to have device shut off --Does patient have Pacemaker or ICD? When Was Last Pacemaker Check QUESTION #4 FULL TEXT: You/Your Family Experience fever (hyperthermia) with Anesthesia Last Oral Intake Last Oral intake: Last Oral Intake NPO since Meds taken in AM with sips of water? Meds patient instructed to take am of surgery PONV PONV - special education associate: PONV - special education associate Female No 12/01/24 11:14 HX of Motion Sickness No 12/01/24 11:14 HX of N/V After Surgery No 12/01/24 11:14 Non-Smoker Yes 12/01/24 11:14 Duration of Surgery greater Yes 12/01/24 11:14 than 60 minutes Number of Risk Factors 2 12/01/24 11:14 PONV Score Moderate Risk 12/01/24 11:14 Height & Weight Height & Weight: Anesthesia: Height & Weight Height 5 ft 7 in 11/30/24 08:22 Respiratory Assessment Respiratory Assessment - special education associate: Respiratory Tract Infection Hx - special education associate Hx Respiratory Tract Infection No 12/01/24 11:14 STOP Sleep Apnea STOP Sleep Apnea - special education associate: STOP Sleep Apnea - special education associate Hx Hypertension Yes: COTROLLED WITH MEDS 12/01/24 11:14 Hx Sleep Apnea Yes 12/01/24 11:14 CPAP No 12/01/24 11:14 BIPAP No 12/01/24 11:14 Do you snore loudly (louder than talking or can be heard Do you often feel tired/ fatigued/ sleepy during daytime? Has anyone observed you stop breathing during sleep? STOP Results Positive 12/01/24 11:14 QUESTION #5 FULL TEXT : Do you snore loudly (louder than talking or can be heard through closed doors)? Tobacco Use History Tobacco Use History - special education associate: Tobacco Use History - special education associate Tobacco Use Smoking Status Never smoker 12/01/24 11:14 Hx Tobacco Use No 12/01/24 11:14 Years Smoking Packs Smoked per Day Smoking Cessation Date was within the last 15 years Hx Smoking Cessation Date Hx Smoking Cessation No 12/01/24 11:14 Counseling Hematologic Medial History Hematologic Hx - special education associate: Hematologic Medical Hx - lens edge grinder machine Hx of Blood Transfusion No 12/01/24 11:14 Hx of Transfusion in last 3 No 12/01/24 11:14 Months Date of Last Transfusion (if within last 3 months) Ever experience any problems No 12/01/24 11:14 with transfusion(s)? Specify any problems Hx of Preganancy in last 3 N/A 12/01/24 11:14 Months Nurse Filling Out Transfusion [email or web address] 12/01/24 11:14 & Questions: Date: 12/01/24 12/01/24 11:14 Time: 11:18 12/01/24 11:14 Patient unable to answer at this time (ie. confused, unrespo /Reproduction History /Reproductive History - special education associate: /Reproductive Hx- special education associate Hx Now No 12/01/24 11:14 Gestational Age (in weeks): EDC: Hx Hx Para Hx Section SAB No 12/01/24 11:14 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) Atherosclerotic heart disease [place]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 Hypercholesterolemia Non-STEMI (non-ST elevated myocardial infarction) Home Medications ?Medication ?Instructions ?Recorded ?Last Taken ?Type fenofibrate 160 mg tablet 160 mg PO DAILY CHOLESTEROL 06/12/23 10/11/24 History aspirin 81 mg chewable tablet 81 mg PO DAILY HEART HEA LTH 10/29/23 10/11/24 History clopidogrel 75 mg tablet 75 mg PO DAILY #90 TABLETS 0 01/18/24 10/11/24 Rx doxazosin 4 mg tablet 4 mg PO QHS #90 TABLETS 01/0610/10/24 Rx ezetimibe 10 mg tablet 10 mg PO DAILY #90 TABLETS 1 07/17/23 10/11/24 Rx artificial tears(hypromellose) 0.3 1 drp EACH EYE BID PRN dry eye(s) 10/11/24 Unknown History % eye drops cholecalciferol (vitamin D3) 50 50 mcg PO QODAY 10/10/24 History mcg (2,000 unit) capsule finasteride 5 mg tablet 5 mg PO DAILY 10/11/2410/11 History folic acid 800 mcg tablet 800 mcg PO BID 10/11/2411/30 History losartan 25 mg tablet 25 mg PO DAILY 10/11/24 Unkn own History Held on 10/11/24. Instructions: PT BP HAS BEEN LOW, SO PT HASNT BEEN TAKING methocarbamol 500 mg tablet 500 mg PO TID PRN back kaley n 3 days 10/11/24 Unknown Rx #10 tabs oxycodone 5 mg tablet 5 mg PO Q6H PRN pain 3 days #12 10/11/24 Unknown Rx tabs meloxicam 15 mg tablet 15 mg PO DAILY 12/01/24 Unkn own History Allergy/AdvReac Type Severity Reaction Status Date / Time atorvastatin (From Lipitor) AdvReac Severe mylagias Verified 12/01/24 11:09 evolocumab (From Repatha AdvReac Severe Blurred Verified 12/01/24 11:09 SureClick) vision metoprolol AdvReac Severe Rash Verified 12/01/24 11:09 hydrocodone bitartrate (From AdvReac Intermediate Itching Verified 12/01/24 11:09 Vicodin) pravastatin AdvReac GI upset Verified 12/01/24 11:09 and sore mouth Family History Mother , age 64 CAD (coronary artery disease) Rheumatic fever Brother CAD (coronary artery disease) Surgical History (Updated 12/01/24 @ 11:23 by Rich Ruiz) H/O shoulder surgery History of colonoscopy (~10/2019) Hx of abdominal surgery (~10/2019) Hx of hand surgery History of coronary artery stent placement (11/03/23) Social History Smoking Status: Never smoker alcohol intake: current alcohol intake frequency: a few times a month substance use type: does not use caffeine: Yes Type: coffee Number of servings: 1 Audit: Pertinent Findings Pertinent Findings EKG Perinent findings: October 11, 2024. Normal sinus rhythm. Stress test pertinent findings: June 20, 2020. EF 64%. No stress associated ischemia. No infarct. Echo (EF%) pertinent findings: 10/30/2023. EF of 65%. No aortic stenosis. Heart catheterization pertinent findings: 10/31/2023. Left main has a 30% distal stenosis. LAD mild irregularities. Previous placed stent is patent. D1 has a ostial 99% stenosis. Circumflex 20 to 30% stenosis in the proximal OM1. RCA has a mid 80% in-stent restenosis. Intervention-FLORY placed in the D1 with a resultant 0% stenosis. FLORY placed in the mid RCA with a resultant 0% stenosis. Consult pertinent findings: October 14, 2024. Isabel BOSCH. 1. Hypercholesterolemia?chronic- 2. Atherosclerotic heart disease of the [place] coronary arteries with angina pectoris?chronic-FLORY to the mid LAD patent. FLORY to the ostial, mid and distal RCA. 3. History of coronary artery stent placement-FLORY to the ostial diagonal 1 and FLORY to the mid RCA in 07/28/2023. Stable. 4. Hypertension?chronic-controlled. 5. Coronary artery dissection?inactive. 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 Chest CTA in October 2023 showed no concerns. Recommendation Anesthesia Recommendation Anesthesia recommendation: OPTIMIZED for anesthesia
[2024-12-13] VITALS (9 sets, daily range): BP systolic 103–143; BP diastolic 63–87; PULSE 68–80; RESP 12–20; TEMP 36.3–36.7; O2SAT 92–97; BMI 35.8
--- NOTE | 2024-12-13 09:26 | PCM.HP.BLA ---
History and Physical Date of Admission: 12/13/24 Intake Vital Signs 10/18/2510:02 12/01/2507:22 Height 5 ft 7 in 5 ft 7 in Weight: 227 lb 231 lb 6 oz BMI 35.5 36.2 BP 134/87 H Blood Pressure Location Rt brachial Position Sitting Respiration 18 Pulse 92 Pulse Source Monitor Temp 97.2 F L Temp Source Temporal Pulse Oximetry (%) 99 Oxygen Delivery Method room air Intake Visit Reasons: UMBILICAL HERNIA Chief Complaint: umbilical hernia Is patient in pain?: Yes Allergies atorvastatin (From Lipitor) Adverse Reaction (Severe, Verified 11/30/24 08:23) mylagiasevolocumab (From Repatha SureClick) Adverse Reaction (Severe, Verified 11/30/24 08:23) Blurred visionmetoprolol Adverse Reaction (Severe, Verified 11/30/24 08:23) Rashhydrocodone bitartrate (From Vicodin) Adverse Reaction (Intermediate, Verified 11/30/24 08:23) Itchingpravastatin Adverse Reaction (Verified 11/30/24 08:23) GI upset and sore mouth Medications ?Medication ?Instructions ?Recorded ?Confirmed ?Type fenofibrate 160 mg tablet 160 mg PO DAILY CHOLESTEROL 06/12/23 11/30/24 History aspirin 81 mg chewable tablet 81 mg PO DAILY HEART HEALTH 10/29/23 11/30/24 History nitroglycerin 0.4 mg sublingual 0.4 mg sublingual DAILY PRN CHEST 10/29/23 11/30/24 History tablet PAIN clopidogrel 75 mg tablet 75 mg PO DAILY #90 TABLETS 01/18/24 11/30/24 Rx doxazosin 4 mg tablet 4 mg PO QHS #90 TABLETS 01/18/24 11/30/24 Rx ezetimibe 10 mg tablet 10 mg PO DAILY #90 TABLETS 05/16/24 11/30/24 Rx artificial tears(hypromellose) 0.3 1 drp EACH EYE BID PRN dry eye(s) 10/11/24 11/30/24 History % eye drops cholecalciferol (vitamin D3) 50 50 mcg PO QODAY 10/11/24 11/30/24 History mcg (2,000 unit) capsule finasteride 5 mg tablet 5 mg PO DAILY 10/11/24 11/30/24 History folic acid 800 mcg tablet 800 mcg PO QHS 10/11/24 11/30/24 History losartan 25 mg tablet 25 mg PO DAILY 10/11/24 11/30/24 History Held on 10/11/24. Instructions: PT BP HAS BEEN LOW, SO PT HASNT BEEN TAKING mecobalamin (vitamin B12) 500 mcg 500 mcg PO DAILY 10/11/24 11/30/24 History chewable tablet methocarbamol 500 mg tablet 500 mg PO TID PRN back pain 3 days 10/11/24 11/30/24 Rx #10 tabs omeprazole 20 mg capsule,delayed 20 mg PO DAILY 10/11/24 11/30/24 History release oxycodone 5 mg tablet 5 mg PO Q6H PRN pain 3 days #12 10/11/24 11/30/24 Rx tabs clindamycin phosphate 1 % lotion topical 10/14/24 11/30/24 History duloxetine 60 mg capsule,delayed 120 mg PO DAILY 10/14/24 11/30/24 History release PFSH Medical History (Updated 11/30/24 @ 08:22 by Corinna Agarwal LPN) Umbilical hernia Coronary artery dissection (~06/25/16) Essential hypertension Inflammatory polyarthropathy BPH (benign prostatic hyperplasia) GERD (gastroesophageal reflux disease) 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 Hypercholesterolemia Non-STEMI (non-ST elevated myocardial infarction) Surgical History History of colonoscopy (~10/2019) Hx of abdominal surgery (~10/2019) Hx of hand surgery History of coronary artery stent placement (11/03/23) Family History Mother , age 64 CAD (coronary artery disease) Rheumatic feverBrother CAD (coronary artery disease) Social History Smoking Status: Never smoker alcohol intake: current alcohol intake frequency: a few times a month substance use type: does not use caffeine: Yes Type: coffee Number of servings: 1 HPI HPI HPI: Patient has a small umbilical hernia that has been there for about a month. He reports that sometimes it grows larger. It is painful and it causes tenderness that radiates down toward his pubic bone ROS General General: Yes weight change (gain); No appetite, fatigue, colon cancer, breast cancer or weakness HEENT HEENT: No difficulty swallowing, eye injury, eye surgery, swollen glands or hoarseness Endo Endocrine: No thyroid disease, diabetes mellitus, thyroid cancer, Hair loss, heat intolerance or cold intolerance Skin Skin: No rash or changing moles Musc Musculoskeletal: Yes back problems and arthritis; No rheumatoid arthritis, gout or joint pain Cardio Cardiovascular: Yes heart disease, high blood pressure, heart attack and heart stent; No murmur, pacemaker, atrial fibrillation, palpitations, shortness of breath with exertion or chest pain Psych Psychiatric: No depression, anxiety or hearing voices Resp Respiratory: Yes shortness of breath, Yes sleep apnea, Yes cough, No COPD, No asthma, No emphysema and No wheezing Gastro Gastrointestinal: Yes abdominal pain, No nausea or vomiting, No diarrhea, No constipation, No blood in stool, Yes acid reflux, No hemorrhoids, No ulcers, No gallbladder problem and No black,tarry stools Juan J Hematologic: Yes blood thinners, No blood disorders, No bleeding, No anemia and No blood clots Neuro Neurologic: No numbness, No tingling and No weakness Exam Const General: cooperative Orientation: alert and oriented x3 HENMT Head: normal to inspection Neck Neck: normal visual inspection and full ROM Chest Chest palpation & inspection: normal inspection of the chest Resp Effort & Inspection: normal respiratory effort Auscultation: clear to auscultation bilaterally Cardio Rate: regular rate Rhythm: regular rhythm GI Inspection: non-distended Palpation: soft, hernia umbilical and nontender Skin General: no rashes or lesions noted Neuro General: patient alert and patient oriented x3 Extrem General: full ROM Psych Appearance: grossly normal Mental Status: mental status grossly normal Assessment and Plan Assessment and Plan (1) Umbilical hernia: Status: Acute Plan: Patient has a small umbilical hernia. It is reducible. It is too small for mesh. I discussed repairing it without mesh with just sutures. Patient would like it repaired. I discussed the risks of bleeding and infection. Patient understands the risks and is willing to proceed. Patient will hold his aspirin and Plavix for 5 days. Peter Perea MD Pager: [facility] [address] [place] [address], [address] [place] [address] Office: I have examined the patient and the H&P has been reviewed. There are no clinical changes since date of exam.
[2024-12-13] MEDS: Lactated Ringers 1,000 ML 15 ML IV (09:54)
--- NOTE | 2024-12-13 10:12 | PCM.PRE.AN2 ---
ASA Classification* ASA Classification ASA Classification: 3 Assessment & Plan Anesthesia* Anesthesia Assessment Anesthesia Assessment: Discussed sedation and/or anesthesia options, risks, benefits, and alternatives with patient/parents/legal guardian/POA. Questions invited. The patient/parents/legal guardian/POA seems to understand and agrees to proceed with anesthesia plan. Reviewed the physical assessment, medical history, allergy history and patient home medications list prior to surgery/procedure/anesthetic and documented any changes. Performed airway and anesthesia risk assessments. Anesthesia Type Anesthesia Type: MAC History Source History Obtained from:: Patient and Chart Anesthesia Focused Assessment* Temperature: 97.5 F Pulse Rate: 75 Blood Pressure: 143/84 Respiratory Rate: 16 Pulse Ox: 97 Oxygen Delivery Method: Room Air Airway Assessment Mouth opens: >3 cm Mallampati Score: II Teeth Condition: Missing (Missing left lower molar. Rest of the teeth are tight.) Neck Range of motion (ROM): Limited ROM (Slight Decrease) Labs Anesthesia Preop lab: CBC WBC 5.2 K/mm3 (4.4-11.0) 10/11/24 09:10 10/11/24 RBC 5.44 M/mm3 (4.6-6.2) 10/11/24 09:10 10/11/24 Hgb 17.1 g/dL (13.0-16.5) H 10/11/24 09:10 10/11/24 Hct 48.2 % (40-54) 10/11/24 09:10 10/11/24 Plt Count 267 K/mm3 (150-450) 10/11/24 09:10 10/11/24 CHEMISTRY Potassium 4.2 mmol/L (3.3-5.1) 10/11/24 09:10 10/11/24 Sodium 138 mmol/L (133-145) 10/11/24 09:10 10/11/24 BUN 14 mg/dL (4-19) 10/11/24 09:10 10/11/24 Creatinine 1.29 mg/dL (0.70-1.20) H 10/11/24 09:10 10/11/24 Glucose 130 mg/dL (70-99) H 10/11/24 09:10 10/11/24 COAG PT 13.7 SECONDS (11.7-14.9) 08/23/18 05:15 08/23/18 Pre-Assessment Diagnosis/Proposed Procedure Planned Operative Procedure(s): UMBILICAL HERNIA Anesthesia History 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 When Was Last Pacemaker Check QUESTION #4 FULL TEXT: You/Your Family Experience fever (hyperthermia) with Anesthesia Last Oral Intake Last Oral intake: Last Oral Intake NPO since 05:30 12/13/24 09:47 Meds taken in AM with sips of Yes 12/13/24 09:47 water? Meds patient instructed to see medlist 12/13/24 09:47 take am of surgery Any additional information?: Yes NPO since: 05:30 (Patient Manage with sips of water at 5:30 AM.) Meds taken in AM with sips of water?: Yes PONV PONV - catering assistant: PONV - catering assistant Female No 12/01/24 11:14 HX of Motion Sickness No 12/01/24 11:14 HX of N/V After Surgery No 12/01/24 11:14 Non-Smoker Yes 12/01/24 11:14 Duration of Surgery greater Yes 12/01/24 11:14 than 60 minutes Number of Risk Factors 2 12/01/24 11:14 PONV Score Moderate Risk 12/01/24 11:14 Height & Weight Height & Weight: Anesthesia: Height & Weight Height 5 ft 7 in 12/13/24 09:47 Weight: 103.8 kg 12/13/24 09:47 Body Mass Index (BMI) 35.8 12/13/24 09:47 Respiratory Assessment Respiratory Assessment - catering assistant: Respiratory Tract Infection Hx - catering assistant Hx Respiratory Tract Infection No 12/01/24 11:14 STOP Sleep Apnea STOP Sleep Apnea - catering assistant: STOP Sleep Apnea - catering assistant Hx Hypertension Yes: COTROLLED WITH MEDS 12/01/24 11:14 Hx Sleep Apnea Yes 12/01/24 11:14 CPAP No 12/01/24 11:14 BIPAP No 12/01/24 11:14 Do you snore loudly (louder than talking or can be heard Do you often feel tired/ fatigued/ sleepy during daytime? Has anyone observed you stop breathing during sleep? STOP Results Positive 12/01/24 11:14 QUESTION #5 FULL TEXT : Do you snore loudly (louder than talking or can be heard through closed doors)? 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 Specify any problems Hx of Preganancy in last 3 N/A 12/01/24 11:14 Months Nurse Filling Out Transfusion [email or web address] 12/01/24 11:14 & Questions: Date: 12/01/24 12/01/24 11:14 Time: 11:18 12/01/24 11:14 Patient unable to answer at this time (ie. confused, unrespo /Reproduction History /Reproductive History - catering assistant: /Reproductive Hx- catering assistant Hx Now No 12/01/24 11:14 Gestational Age (in weeks): EDC: Hx Hx Para Hx Section SAB No 12/01/24 11:14 Active Medications Active Medications: Current Medications Generic Name Dose Route Start Last Admin Trade Name Freq PRN Reason Stop Dose Admin Cefazolin Sodium 2 gm/ Sodium 110 mls @ 200 mls/hr 12/13/24 11:00 Chloride IV 12/13/24 11:32 INTRAOP ONE Lactated Ringer's 1,000 mls @ 15 mls/hr 12/13/24 09:45 12/13/24 09:54 IV 15 mls/hr .Q48H MAHOGANY Administration PFSH Medical History Back pain History of echocardiogram History of stress test Cardiology follow-up encounter Umbilical hernia Coronary artery dissection (~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) Essential hypertension Inflammatory polyarthropathy BPH (benign prostatic hyperplasia) GERD (gastroesophageal reflux disease) 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) Atherosclerotic heart disease grindstone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 Hypercholesterolemia Non-STEMI (non-ST elevated myocardial infarction) Home Medications ?Medication ?Instructions ?Recorded ?Last Taken ?Type fenofibrate 160 mg tablet 160 mg PO DAILY CHOLESTEROL 06/12/23 12/13/24 History aspirin 81 mg chewable tablet 81 mg PO DAILY HEART HEALTH 10/29/23 12/07/24 History clopidogrel 75 mg tablet 75 mg PO DAILY #90 TABLETS 01/18/24 12/07/24 Rx doxazosin 4 mg tablet 4 mg PO QHS #90 TABLETS 01/18/24 10/10/24 Rx ezetimibe 10 mg tablet 10 mg PO DAILY #90 TABLETS 05/16/24 12/13/24 Rx artificial tears(hypromellose) 0.3 1 drp EACH EYE BID PRN dry eye(s) 10/11/24 Unknown History % eye drops cholecalciferol (vitamin D3) 50 50 mcg PO QODAY 10/11/24 10/10/24 History mcg (2,000 unit) capsule finasteride 5 mg tablet 5 mg PO DAILY 10/11/24 10/11/24 History folic acid 800 mcg tablet 800 mcg PO BID 10/11/24 10/11/24 History losartan 25 mg tablet 25 mg PO DAILY 10/11/24 11/01/24 History Held on 10/11/24. Instructions: PT BP HAS BEEN LOW, SO PT HASNT BEEN TAKING methocarbamol 500 mg tablet 500 mg PO TID PRN back pain 3 days 10/11/24 Unknown Rx #10 tabs oxycodone 5 mg tablet 5 mg PO Q6H PRN pain 3 days #12 10/11/24 Unknown Rx tabs meloxicam 15 mg tablet 15 mg PO DAILY 12/01/24 Unknown History Allergy/AdvReac Type Severity Reaction Status Date / Time atorvastatin (From Lipitor) AdvReac Severe mylagias Verified 12/13/24 09:36 evolocumab (From Repatha AdvReac Severe Blurred Verified 12/13/24 09:36 SureClick) vision metoprolol AdvReac Severe Rash Verified 12/13/24 09:36 hydrocodone bitartrate (From AdvReac Intermediate Itching Verified 12/13/24 09:36 Vicodin) pravastatin AdvReac GI upset Verified 12/13/24 09:36 and sore mouth Family History Mother , age 64 CAD (coronary artery disease) Rheumatic fever Brother CAD (coronary artery disease) Surgical History H/O shoulder surgery History of colonoscopy (~10/2019) Hx of abdominal surgery (~10/2019) Hx of hand surgery History of coronary artery stent placement (11/03/23) Social History Smoking Status: Never smoker alcohol intake: current alcohol intake frequency: a few times a month substance use type: does not use caffeine: Yes Type: coffee Number of servings: 1 Review of Systems (Anesthesia) ROS Narrative System reviewed and no additional complaints, except as documented.
[2024-12-13] MEDS: Bupiv/Epi 0.25% 30 ML Vial (11:00)
--- NOTE | 2024-12-13 11:22 | OP.PCM_ITS ---
Operative Report (Standard) Operative Information Date of Procedure: 12/13/24 Pre-Operative Diagnosis: Umbilical hernia Post-Operative Diagnosis: Umbilical hernia Surgery/Procedure Performed: Umbilical hernia repair assisted living coordinator: No Type of Anesthesia: General/Regional RN Documented Start/Stop Times: Operation Date: 12/13/24 11:00 Case Time Into Pre-Op 12/13/24 09:39 Out of Pre-Op 12/13/24 10:44 Anesthesia Start 12/13/24 10:47 Into Room 12/13/24 10:47 Procedure Start 12/13/24 11:09 Procedure Start Time: 11: Procedure Stop Time: : Select all DRAINS/GRAFTS/IMPLANTS that apply: None Estimated Blood Loss: 5 Specimen collected: No Description of surgery: Patient was brought back to the operating room and MAC anesthesia was induced. The abdomen was prepped and draped in usual sterile fashion. A curvilinear incision was marked inferior to the umbilicus and injected with local anesthetic. Incision was then made with a scalpel and deepened to the hernia sac. The hernia sac was removed from the umbilical stalk. The hernia contents were reduced and the hernia was closed with 0 PDS suture. The umbilical defect was approximately 5 mm. Next the cavity was irrigated and suctioned dry and then the skin was closed with interrupted 3-0 Vicryl sutures and Steri-Strips and bandages were applied. Surgical Findings: Small umbilical hernia Complications Complications: No Admit VTE Documentation VTE Mechan Device Prophylaxis: SCD's
--- NOTE | 2024-12-13 11:25 | DCINST_ITS ---
Discharge Instructions Procedure Hernia Diet Discharge Diet: Light diet - advance as tolerated Activity Discharge Activity: May Not Drive (for 2-3 days or while taking narcotic pain meds.) and May Shower (with the bandage in place 1-2 days after surgery.) Lifting Restrictions: 20 pounds for 4 weeks. Additional Activity Instructions:: Climbing stairs is fine, walking is encouraged. Sitting in bed may be uncomfortable. Sitting up using your lateral muscles (sitting up sideways) is usually more comfortable. Do not drive, work heavy equipment of sign legal documents for 24 hours. Pain medications may cause nausea, you should typically eat light foods as you take your pain medications. Pain medications may also cause constipation. If you have difficulty with this, discuss with your doctor. Alternate ibuprofen and Tylenol for pain control, oxycodone for breakthrough pain. Resume aspirin and Plavix tomorrow Dressing / Incision Call your doctor if your incision/area has: Continuous Slow Oozing, Sudden Increased Bleeding, Increased Pain/ Swelling, Increased Redness and Foul Smelling Discharge Call your doctor if you observe: Fever of 101 or Higher Suture Line Care: Avoid Pulling/Pushing and Avoid Pinching/Bending Remove Dressing in: 3 days (Remove clear bandages in 2 days, remove Steri-Strips in 7 to 10 days.) Cleanse incision/area with: Soap & Water Follow Up Care Please Follow Up With: Peter Perea MD When: Please call to schedule 2 week follow up appointment. [phone] Test Results: Test results from this visit will be discussed in further detail at your follow- up appointment, if applicable. Discharge Plan Admission Attending Provider: Peter Perea Primary Care Provider: Mendoza Harris Instructions Print Language: [place] Discharge Orders/Prescriptions Prescriptions: New oxycodone 5 mg Tablet 5 - 10 mg PO Q4H PRN PRN (Reason: Pain Score 4-10) 5 Days Qty: 14 0RF No Action fenofibrate 160 mg tablet 160 mg PO DAILY oxycodone 5 mg tablet 5 mg PO Q6H PRN (Reason: pain) 3 Days Qty: 12 0RF methocarbamol 500 mg tablet 500 mg PO TID PRN (Reason: back pain) 3 Days Qty: 10 0RF finasteride 5 mg tablet 5 mg PO DAILY losartan 25 mg tablet 25 mg PO DAILY Patient Comments: HAS BEEN TAKING 12.5 MG DAILY artificial tears(hypromellose) 0.3 % drops 1 drp EACH EYE BID PRN (Reason: dry eye(s)) cholecalciferol (vitamin D3) 50 mcg (2,000 unit) capsule 50 mcg PO QODAY Rx Instructions: pt takes at night folic acid 800 mcg tablet 800 mcg PO BID meloxicam 15 mg tablet 15 mg PO DAILY aspirin 81 mg tablet,chewable 81 mg PO DAILY doxazosin 4 mg tablet 4 mg PO QHS Qty: 90 3RF clopidogrel 75 mg tablet 75 mg PO DAILY Qty: 90 3RF ezetimibe 10 mg tablet 10 mg PO DAILY Qty: 90 3RF Referrals / Follow Up: Mendoza Harris MD [Primary Care Provider] - Disposition Disposition (needs filled in before D/C Order can be placed): Home, Self Care
--- NOTE | 2024-12-13 11:36 | PCM.POST.ANE ---
Anesthesia: Postop Eval I Current Vital Signs Temperature: 97.4 F Pulse Rate: 75 Blood Pressure: 143/84 Respiratory Rate: 16 Pulse Ox: 97 Oxygen Delivery Method: Room Air Assessment Airway patent: No Spontaneous unlabored respirations: Yes Mental status: Awake and Calm nausea: No Vomiting: No Anesthesia Complication: No Fluid Hydration Crystalloid volume administer (ml): 500 Total IV fluid infused: 500 Progress Note Anesthesia document: Postop Eval 1 completed: Yes
--- NOTE | 2024-12-14 00:26 | POSTOPAN2_ITS ---
Anesthesia Postop Eval I Sum Postop Eval Completion status Anesthesia document: Postop Eval 1 completed: Yes Anesthesia Postop Eval I Summary Anesthesia Postop Eval I Summary: Anesthesia Postop Eval I: Assessment Summary Airway patent yes 12/13/24 11:39 CELL [email or web address] Spontaneous unlabored Yes 12/13/24 11:39 CELL [email or web address] respirations Mental status Awake,Calm 12/13/24 11:39 CELL [email or web address] nausea No 12/13/24 11:39 CELL [email or web address] Vomiting No 12/13/24 11:39 CELL [email or web address] Anesthesia Postop Eval I: Fluid Summary Crystalloid volume administer 500 12/13/24 11:39 CELL [email or web address].[email or web address] (ml) Colloids volume administered ( ml) Blood Product volume administered (ml) Total IV fluid infused 500 12/13/24 11:39 CELL [email or web address].[email or web address] Anesthesia Postop Eval I: Summary Notes Anesthesia Complication No 12/13/24 11:39 CELL [email or web address].[email or web address] Anesthesia Complication Comment: Post-operative progress note Anesthesia: Postop Eval II Evaluation Mental status: Awake and Calm Pain Level: 1 nausea: No Vomiting: No Complications Anesthesia Complication: No
--- NOTE | 2024-12-14 00:26 | PCM.POSTANE2 ---
Anesthesia Postop Eval I Sum Postop Eval Completion status Anesthesia document: Postop Eval 1 completed: Yes Anesthesia Postop Eval I Summary Anesthesia Postop Eval I Summary: Anesthesia Postop Eval I: Assessment Summary Airway patent yes 12/13/24 11:39 SNOW [email or web address] Spontaneous unlabored Yes 12/13/24 11:39 SNOW TECHNICIAN.[email or web address] respirations Mental status Awake,Calm 12/13/24 11:39 SNOW TECHNICIAN.[email or web address] nausea No 12/13/24 11:39 SNOW TECHNICIAN.AMERICO Vomiting No 12/13/24 11:39 SNOW [email or web address].[email or web address] Anesthesia Postop Eval I: Fluid Summary Crystalloid volume administer 500 12/13/24 11:39 SNOW [email or web address].ALLENAN (ml) Colloids volume administered ( ml) Blood Product volume administered (ml) Total IV fluid infused 500 12/13/24 11:39 SNOW [email or web address].AMERICO Anesthesia Postop Eval I: Summary Notes Anesthesia Complication No 12/13/24 11:39 SNOW [email or web address].[email or web address] Anesthesia Complication Comment: Post-operative progress note Anesthesia: Postop Eval II Evaluation Mental status: Awake and Calm Pain Level: 1 nausea: No Vomiting: No Complications Anesthesia Complication: No
== END 2024-12-13 12:43 | disposition home or self-care (01) ==
LOC: SDC 09:09 → AC 09:10
PROVIDERS: PCP Family Medicine; Referring Provider Surgery; Visit Provider Surgery
PROC: (CPT 49591; principal; 2024-12-13 10:45)
DX: K42.9 Umbilical hernia without obstruction or gangrene (principal); I25.119 Atherosclerotic heart disease of native coronary artery with unspecified angina pectoris; I10 Essential (primary) hypertension; I25.2 Old myocardial infarction; E78.00 Pure hypercholesterolemia, unspecified; Z95.5 Presence of coronary angioplasty implant and graft; Z79.02 Long term (current) use of antithrombotics/antiplatelets; Z79.82 Long term (current) use of aspirin; Z79.899 Other long term (current) drug therapy
CPT/HCPCS: 49591; 00830; J2405

== ENCOUNTER → 2025-01-18 | Outpatient (CLI) | payer MEDICARE, SELFPAY ==
[2016-11-25 13:03] VITALS: BMI 32.7
--- NOTE | 2025-01-18 06:56 | MRI_ITS ---
PROCEDURE: SPINE CERVICAL (ROUTINE) 01/18/2025 REASON FOR EXAM: PAIN TECHNIQUE: SPINE CERVICAL (ROUTINE) Multiplanar and multisequence images were obtained without IV contrast administration. COMPARISON: None FINDINGS: Vertebrae: Cervical vertebral body heights are preserved. Bone marrow signal is unremarkable. Alignment: Straightening. No significant spondylolisthesis. Spinal Cord: Cervical spinal cord is of normal size and signal intensities. Structures at the foramen magnum are unremarkable. C2-3: A 4 x 2 mm synovial cyst anteromedial right facet. C3-4: Minimal loss of disc height. Diffuse disc osteophyte protrusion, [id number]-right uncinate spurring. Minimal facet hypertrophy. Effacement of the anterior thecal sac. CSF is seen posterior to the cord. Central stenosis to 8 mm AP. No abnormal cord signal. Bilateral exit foraminal narrowing. C4-5: Minimal loss of disc height. Diffuse disc osteophyte protrusion greatest centrally where there is effacement of the anterior thecal sac. Central stenosis to 6 mm AP. Mild deformation of the cord without abnormal cord signal. Uncinate spurring and minimal facet hypertrophy. Bilateral exit foraminal narrowing is mild. C5-6: Mild loss of disc height. Diffuse disc osteophyte protrusion. Minimal facet hypertrophy. Partial effacement of the anterior thecal sac but there is CSF around the cord. Central stenosis to 8.8 mm. Borderline narrowing right exit foramen. C6-7: Mild loss of disc height. Diffuse disc osteophyte protrusion is present and asymmetric towards the right sub foraminal zone. There may be uncinate spurring on the right. Mild left facet hypertrophy. Partial effacement of the anterior thecal sac greater on the right side with some deformation of the cord but no abnormal cord signal. CSF is seen posterior to the cord. Central canal is 8.4 mm AP. No exit foraminal narrowing. C7-T1: Moderate facet hypertrophy bilaterally. No stenosis. MRI/Spine Cervical (Routine) IMPRESSION: 1. Straightening of the normal cervical lordosis. 2. Multilevel degenerative disc disease with central stenosis at C3/4, C4/5, C 5/6, C6/7. No abnormal cord signal. Exit foraminal narrowing at C3/4, C4/5 and C5/6. Reading Location: [id number]
--- OUTSIDE RECORDS SUMMARY | 2025-01-18 07:17 | XMS RPT_ITS | CCD ---
Author Organization [facility] Care Team Providers Care Court Interpreter Name Role Phone DEBO, AIDAN A Unavailable Unavailable DEBO, AIDAN A Unavailable Unavailable DEBO, AIDAN A Unavailable Unavailable DEBO, AIDAN A Unavailable Unavailable DEBO, AIDAN A Unavailable Unavailable DEBO, AIDAN A Unavailable Unavailable MEZA, ANANTHA Unavailable Unavailable DEBO, AIDAN A Unavailable Unavailable MEZA, ANANTHA Unavailable Unavailable MEZA, ANANTHA Unavailable Unavailable Dr. Cosme Berger Primary Care Provider Dr. Cosme Berger Referring Provider [facility] PAINTER ROUGH, PAINTER ROUGH-Aashish Trent Attending Provider [phone] COSME BERGER MD Primary Care Physician PACHECO JIN, CONSTANTINO Austin Attending Unavail marge BERGER MD, COSME Flood Primary Care Unavailab Jourdan JIN, COSME Flood Primary Care Unavailab madi BERGMAN MD, CONSTANTINO Asutin Attending Unavail marge BERGER MD, COSME Flood Primary Care Unavailab CONSTANTINO Lopes MD Attending Unavail marge BERGMAN MD, CONSTANTINO Austin Attending Unavail marge BERGER MD, COSME Flood Primary Care Unavailab madi BERGER MD, COSME Flood Primary Care Unavailab madi BERGMAN MD, CONSTANTINO Austin Attending Unavail Dr. Cosme Adam MD Primary Care Provider Jamia Summers Attending Provider [phone] Jamia Summers Referring Provider [phone] Flaquito Huerta DO Attending Provider Dr. Flaquito Huerta DO Emergency Provider Dr. Cosme Berger MD Referring Provider Angie Hilliard Attending Provider Paola Funk Attending Provider [phone] Joy JIN, Dr. Dennison Attending Provider Steven JIN, Dr. Donaldosn Primary Care Provider Paola Funk Referring Provider [phone] Eliazar JIN, Dr. Green Attending Provider [phone] Robe JIN, Dr. Wiseman Attending Provider Eliazar JIN, Dr. Green Referring Provider [phone] Eliazar JIN, Dr. Green Other Provider Steven, Cosme Referring Unavailable Steven, Cosme Primary Care Unavailable Olayinka French NP Attending Unavailable Steven, Cosme Primary Care Unavailable Steven, Cosme Referring Unavailable Bowen Nagel Attending Unavailable Steven, Cosme Primary Care Unavailable CalabrettaPeter Attending Unavailable Calabretta, Peter Referring Unavailable Steven, Cosme Primary Care Unavailable Paola Gould Referring Unavailable Paola Gould Attending Unavailable Steven, Cosme Primary Care Unavailable NadeenAmos Referring Unavailable NadeenAmos Attending Unavailable Wayne, Jamia Referring Unavailable Wayne, Jamia Attending Unavailable Steven, Cosme Primary Care Unavailable Flaquito Huerta Attending Unavailable Steven, Cosme Primary Care Unavailable Steven, Cosme Primary Care Unavailable Steven, Cosme Referring Unavailable CalabrPeter brar Attending Unavailable Steven, Cosme Primary Care Unavailable Juma Hamilton Attending Unavailable Steven, Cosme Primary Care Unavailable Steven, Cosme Referring Unavailable Paola Gould Attending Unavailable Steven, Cosme Primary Care Unavailable Steven, Cosme Referring Unavailable Angie Hilliard Attending Unavail able Steven, Cosme Primary Care Unavailable CalPeter kevin Attending Unavailable Peter Perea Consulting Unavailable Calabretta Peter Referring Unavailable Allergies Allergy Classification Reported Allergen(s) Allergy Type Date of Onset Reaction(s) Facility (1 source) acetaminophen / HYDROcodone; Translations: [HYDROCODONE-ACET AMINOPHEN] Drug Allergy 7 AOF [facility] (10 sources) atorvastatin Drug Allergy 2 mylagias [facility] (10 sources) evolocumab; Translations: [evolocumab] Drug Allergy 2 headache, flu-like symptoms, arthritic pain, Blurred vision [facility] (11 sources) HYDROcodone; Translations: [hydrocodone bitartrate] Drug Allergy 2 Itching [facility] (13 sources) Pravastatin; Translations: [pravastatin] Drug Allergy 2 Adverse reaction to drug (disorder) [facility] (3 sources) Acetaminophen / HYDROcodone; Translations: [acetaminophen-hy drocodone] Drug Allergy [facility] (3 sources) celecoxib; Translations: [celecoxib] Drug Allergy Adverse reaction to drug (disorder) [facility] (3 sources) cloNIDine; Translations: [clonidine] Drug Allergy Adverse reaction to drug (disorder) [facility] (3 sources) DULoxetine; Translations: [duloxetine] Drug Allergy Adverse reaction to drug (disorder) [facility] (3 sources) FLUoxetine; Translations: [fluoxetine] Drug Allergy Reaction (qualifier value) [facility] (3 sources) gabapentin; Translations: [gabapentin] Drug Allergy Adverse reaction to drug (disorder) [facility] (3 sources) meloxicam; Translations: [meloxicam] Drug Allergy Adverse reaction to drug (disorder) [facility] (3 sources) Methocarbamol; Translations: [methocarbamol] Drug Allergy Adverse reaction to drug (disorder) [facility] (3 sources) montelukast; Translations: [montelukast] Drug Allergy Adverse reaction to drug (disorder) [facility] (3 sources) nabumetone; Translations: [nabumetone] Drug Allergy Reaction (qualifier value) [facility] (3 sources) pitavastatin; Translations: [pitavastatin] Drug Allergy [facility] (3 sources) predniSONE; Translations: [prednisone] Drug Allergy Adverse reaction to drug (disorder) [facility] (3 sources) pregabalin; Translations: [pregabalin] Drug Allergy Adverse reaction to drug (disorder) [facility] (3 sources) rosuvastatin; Translations: [rosuvastatin] Drug Allergy Adverse reaction to drug (disorder) [facility] (3 sources) Simvastatin; Translations: [simvastatin] Drug Allergy Reaction (qualifier value) [facility] (3 sources) tamsulosin; Translations: [tamsulosin] Drug Allergy Adverse reaction to drug (disorder) [facility] (3 sources) tiZANidine; Translations: [tizanidine] Drug Allergy Adverse reaction to drug (disorder) [facility] (3 sources) topiramate; Translations: [topiramate] Drug Allergy Adverse reaction to drug (disorder) [facility] (3 sources) traMADol; Translations: [tramadol] Drug Allergy Adverse reaction to drug (disorder) [facility] (7 sources) Metoprolol Drug Allergy 4 Rash [facility] (1 source) atorvastatin Drug Allergy 5 [facility] (1 source) Metoprolol Drug Allergy 5 [facility] (1 source) Pravastatin Drug Allergy 5 [facility] Medications Current Medications Medication Drug Class(es) [...] effects., # 90 tab(s), 0 Refill(s), Pharmacy: [id number], 170, cm, 07/07/22 9:03:00 Aneta SETH Start Date: 07/07/22 Stop Date: 08/06/22 Status: Ordered cholecalciferol 0.05 mg oral capsule (20 sources) Vitamin D Start: 10-11-2024 take 1 [...] 19, 2021 11:00am December 18, 2023 8:58am SUPPLEMENT Start: 11-19-2021 take 3000 [IU] by mo [facility] once daily Cholecalciferol (Vitamin D3) Active 3000 UNIT PO DAILY November 19, 2021 11:00am Start: 06-11-2020 End: 11-19-2021 take 1 capsule by mouth once daily Cholecalciferol (Vitamin D3) 25 mcg (1,000 unit) capsule Discontinued 25 ug PO DAILY June 11, 2020 1:00am November 19, 2021 11:01am finasteride 5 mg oral tablet (6 sources) 5-alpha Reductase Inhibitor Start: 10-11-2024 take 1 tablet by mouth once daily Finasteride 5 mg tablet Active 5 mg PO DAILY October 11, 2024 12:00am folic acid 0.8 mg oral tablet (13 sources) Start: 10-11-2024 take 1 tablet by mouth twice daily Folic Acid 800 mcg tablet Active 800 ug PO TWICE A DAY October 11, 2024 12:00am Start: 06-12-2023 End: 12-18-2023 take 0.4 mg by mouth twice daily Folic Acid 400 mcg tablet Discontinued 0.4 mg PO TWICE A DAY June 12, 2023 1:00am December 18, 2023 8:58am SUPPLEMENT Start: 06-12-2023 take 0.4 mg by mouth twice daily Folic Acid Active 0.4 MG PO TWICE A DAY June 12, 2023 1:00am hypromellose 3 mg/ml ophthalmic solution (6 sources) Start: 10-11-2024 take 0.3 drop(s) into [...] tablet Discon tinued 12.5 mg PO DAILY 45 January 18, 2024 8:18am October 10, 2024 4:59pm Start: 10-29-2023 End: 01-18-2024 take 1 tablet by mouth once daily Losartan 25 mg tablet Discontinued 25 mg PO DAILY October 29, 2023 12:00am January 18, 2024 8:18am BLOOD PRESSURE Start: 07-07-2022 losartan 25 mg oral tablet Dose : 12.5 mg = 0.5 tab(s), Oral, qDay, # 30 tab(s), 0 Refill(s) Start Date: 07/07/22 Status: Ordered Start: 12-19-2020 End: 10-29-2023 Losartan 25 mg tablet Discon tinued 12.5 mg PO daily 45 January 14, 2023 8:05am October 29, 2023 4:54pm Start: 12-19-2020 End: 01-14-2023 take 12.5 mg by mouth once daily Losartan Active 12.5 MG PO daily 45 January 14, 2023 8:05am Start: 06-29-2017 End: 12-19-2020 take 1 tablet by mouth once daily Losartan 25 mg tablet Discontinued 25 mg PO daily 90 April 06, 2020 12:59pm December 19, 2020 8:36am Start: 08-11-2016 End: 06-29-2017 Losartan 25 MG tablet Discon tinued 12.5 mg PO DAILY August 11, 2016 1:00am June 29, 2017 6:20pm Start: 08-11-2016 End: 06-29-2017 take 12.5 mg by mouth once daily Losartan Discontinued 12.5 MG PO DAILY August 11, 2016 1:00am June 29, 2017 6:20pm meloxicam 15 mg oral tablet (8 sources) Nonsteroidal Anti-inflammatory Drug Start: 12-01-2024 take 1 tablet by mouth once daily Meloxicam 15 mg tablet Active 15 mg PO DAILY December 01, 2024 12:00am Start: 10-29-2023 End: 12-18-2023 take 1 tablet by mouth once daily as needed for arthritis Meloxicam 15 mg tablet Discontinued 15 mg PO DAILY as needed for ARTHRITIS October 29, 2023 12:00am December 18, 2023 8:58am methocarbamol 500 mg oral tablet (6 sources) Muscle Relaxant Start: 10-11-2024 take 1 tablet by mouth three times daily as needed for pain Methocarbamol 500 mg tablet Active 500 mg PO THREE TIMES A DAY as needed for back pain 10 3 0 October 11, 2024 11:18am oxyCODONE hydrochloride 5 mg oral tablet (7 sources) Opioid Agonist Start: 12-13-2024 take 5-10 mg by mouth every four hours as needed for pain Oxycodone 5 mg Tablet Active 5 - 10 mg PO EVERY 4 HOURS NEEDED as needed for Pain Score 4-10 14 5 0 December 13, 2024 Umbilical hernia Umbilical hernia without obstruction or gangrene Start: 10-11-2024 take 1 tablet by jose m th every six hours as needed for pain Oxycodone 5 mg tablet Active 5 mg PO EVERY 6 HOURS as needed for pain 12 3 0 October 11, 2024 Chronic back pain Dorsalgia, unspecified Other chronic pain traZODone hydrochloride 150 mg oral tablet (20 sources) Serotonin Reuptake Inhibitor Start: 07-07-2022 take [...] 2023 5:08pm atorvastatin 80 mg oral tablet (10 sources) HMG-CoA Reductase Inhibitor Start: 07-03-2017 End: 08-06-2017 take 1 tablet by mouth once daily Atorvastatin 80 mg tablet Discontinued 80 mg PO daily July 03, 2017 1:00am August 06, 2017 1:47pm 12 hr buPROPion hydrochloride 150 mg extended release oral tablet (10 sources) Aminoketone Start: 11-19-2021 End: 10-29-2023 take 1 tablet by mouth twice daily Bupropion Hcl 150 mg tablet sustained-release 12 hr Discontinued 150 mg PO TWICE A DAY November 19, 2021 12:00am October 29, 2023 5:03pm DEPRESSION clindamycin 10 mg/ml topical lotion (6 sources) Lincosamide Antibacterial Start: 10-14-2024 End: 12-01-2024 Clindamycin Phosphate 1 % lotion Discontinued TOPICAL October 14, 2024 12:00am December 01, 2024 11:09am clopidogrel 75 mg oral tablet (20 sources) [id number] Platelet Inhibitor Start: 08-11-2016 End: 01-18-2024 take 1 tablet by mouth once daily Clopidogrel 75 mg tablet Discontinued 75 mg PO DAILY 90 3 January 14, 2023 8:05am January 18, 2024 8:18am BLOOD THINNER colestipol hydrochloride 1000 mg oral tablet (10 sources) Bile Acid Sequestrant Start: 08-06-2017 End: 08-06-2017 Colestipol 1 gram tablet Discontinued 1 g PO daily August 06, 2017 1:00am August 06, 2017 3:22pm doxazosin 4 mg oral tablet (20 sources) alpha-Adrenergic Lobo Start: 11-24-2016 End: 01-18-2024 take 1 tablet by mouth at bedtime Doxazosin 4 mg tablet Discontinued 4 mg PO AT BEDTIME 90 3 January 14, 2023 8:05am January 18, 2024 8:18am BLOOD PRESSURE doxycycline hyclate 100 mg oral capsule (12 sources) Tetracycline-class Drug Start: 12-18-2023 End: 10-11-2024 [...] 29, 2023 12:00am November 12, 2023 11:35am ANTIBIOTIC TAKE ONE CAPSULE BY MOUTH TWICE DAILY FOR 10 DAYS. START DATE: 10/28/23 END DATE: 11/06/23 Duloxetine 60 mg capsule,delayed release(DR/EC) (6 sources) Start: 10-14-2024 End: 12-01-2024 take 2 capsules by mouth once daily Duloxetine 60 mg capsule,delayed release(DR/EC) Discontinued 120 mg PO DAILY October 14, 2024 12:00am December 01, 2024 11:10am Start: 10-14-2024 take 2 capsules by m out once daily Duloxetine 60 mg capsule,delayed release(DR/EC) Active 120 mg PO DAILY October 14, 2024 12:00am 1 ml evolocumab 140 mg/ml auto-injector (20 sources) PCSK9 Inhibitor Start: 11-12-2023 End: 10-11-2024 [...] mg tablet Discontinued 0 .ROUTE .COMPLEX 90 3 July 27, 2023 10:36am October 29, 2023 4:54pm TAKE 1 TABLET EVERY DAY Start: 07-08-2019 End: 11-18-2019 take 1 tablet by mouth once daily Ezetimibe (Zetia) 10 mg tablet Discontinued 10 mg PO DAILY 30 July 08, 2019 1:00am November 18, 2019 8:55am Start: 07-14-2017 End: 03-01-2018 take 1 tablet by mouth once daily Ezetimibe (Zetia) 10 mg tablet Discontinued 10 mg PO daily 07 05November 30, 2017 3:46pm March 01, 2018 4:44pm fenofibrate 145 mg oral tablet (20 sources) Peroxisome Proliferator Receptor alpha Agonist Start: [...] mg PO DAILY June 12, 2023 1:00am CHOLESTEROL Start: 11-19-2021 End: 06-12-2023 take 1 tablet by mouth once daily Fenofibrate Nanocrystallized 145 mg tablet Discontinued 145 mg PO DAILY November 19, 2021 12:00am June 12, 2023 2:50pm gemfibrozil 600 mg oral tablet (20 sources) Peroxisome Proliferator Receptor alpha Agonist Start: 05-16-2019 End: 11-18-2019 take 1 tablet by mouth twice daily Gemfibrozil 600 mg tablet Discontinued 600 mg PO TWICE A DAY May 16, 2019 1:00am November 18, 2019 8:56am Start: 12-24-2016 End: 06-04-2017 take 1 tablet by mouth twice daily Gemfibrozil 600 MG tablet Discontinued 600 mg PO TWICE A DAY December 24, 2016 12:00am June 04, 2017 4:03pm 24 hr isosorbide mononitrate 30 mg extended release oral tablet (10 sources) Nitrate Vasodilator Start: 05-29-2017 End: 06-04-2017 take 1 tablet by mouth once daily in the morning, then take 1 tablet by mouth every twenty-four hours Isosorbide Mononitrate 30 mg tablet extended release 24 hr Discontinued 30 mg PO EVERY MORNING 30 3 May 29, 2017 1:00am June 04, 2017 4:01pm swallow whole with glass of water; do not crush/chew /dissolve /cut/break Magnesium (17 sources) Start: 06-12-2023 End: 10-29-2023 take 1 [...] MG PO DAILY June 11, 2020 1:00am mecobalamin (6 sources) Start: 10-11-2024 End: 12-01-2024 take 1 tablet by mouth once daily Mecobalamin (Vitamin B12) 500 mcg tablet,chewable Discontinued 500 ug PO DAILY October 11, 2024 12:00am December 01, 2024 11:11am Start: 10-11-2024 take 1 tablet by jose m th once daily Mecobalamin (Vitamin B12) 500 mcg tablet,chewable Active 500 ug PO DAILY October 11, 2024 12:00am melatonin 3 mg oral capsule (20 sources) Start: 05-16-2019 End: 10-29-2023 take 1 capsule by mouth at bedtime as needed Melatonin 3 mg capsule Discontinued 3 mg PO BEDTIME as needed November 18, 2019 8:56am October 29, 2023 5:05pm metoprolol tartrate 25 mg oral tablet (20 sources) beta-Adrenergic Lobo Start: 10-29-2023 End: 12-18-2023 take 1 tablet by mouth once daily Metoprolol Tartrate 25 mg tablet Discontinued 25 mg PO DAILY October 29, 2023 12:00am December 18, 2023 8:56am BLOOD PRESSURE Start: 11-04-2022 End: 06-12-2023 Metoprolol Tartrate 25 mg ta blet Discontinued 0 .ROUTE .COMPLEX November 04, 2022 10:27am June 12, 2023 2:47pm TAKE 1/2 TABLET TWICE DAILY Start: 11-04-2022 End: 06-12-2023 Metoprolol Tartrate 25 [...] Discontinued 12.5 mg PO TWICE A DAY 90 April 06, 2020 1:00pm June 11, 2020 12:05pm Start: 06-27-2019 End: 06-11-2020 take 12.5 mg by mouth twice daily Metoprolol Tartrate Discontinued 12.5 MG PO TWICE A DAY 90 April 06, 2020 1:00pm June 11, 2020 12:05pm Start: 08-22-2018 End: 06-27-2019 take 1 tablet by mouth once daily Metoprolol Tartrate 25 MG tablet Discontinued 25 mg PO DAILY August 22, 2018 3:07pm June 27, 2019 5:53pm Start: 08-06-2017 End: 08-22-2018 take 1 tablet by mouth twice daily Metoprolol Tartrate 25 mg tablet Discontinued 25 mg PO TWICE A DAY 60 11 August 06, 2017 3:45pm August 22, 2018 [...] Discontinued 25 mg PO TWICE A DAY 90 0 August 15, 2016 1:00am September 11, 2016 10:59am Start: 08-11-2016 End: 08-15-2016 take 1 tablet by mouth twice daily Metoprolol Tartrate 50 MG tablet Discontinued 50 mg PO TWICE A DAY August 11, 2016 1:00am August 15, 2016 1:23pm nitroglycerin 0.4 mg sublingual tablet (20 sources) Nitrate Vasodilator Start: 08-11-2016 End: 12-01-2024 Nitroglycerin 0.4 mg tablet, sublingual Discontinued 0.4 mg SL NEEDED as needed for chest pain 02 07January 24, 2021 11:40am October 29, 2023 5:08pm omeprazole 20 mg delayed release oral capsule (20 sources) Proton Pump Inhibitor Start: 10-11-2024 End: 12-01-2024 take 1 capsule by mouth once daily Omeprazole 20 mg capsule,delayed release(DR/EC) Discontinued 20 mg PO DAILY October 11, 2024 12:00am December 01, 2024 11:12am Start: 10-29-2023 End: 12-18-2023 take 1 capsule by mouth once daily Omeprazole 20 mg capsule,delayed release(DR/EC) Discontinued 20 mg PO DAILY October 29, 2023 12:00am December 18, 2023 8:57am ACID REFLUX Start: 07-07-2022 omeprazole 20 mg oral delayed release capsule Dose : 20 mg = 1 cap(s), Oral, qDay, # 30 cap(s), 0 Refill(s) Start Date: 07/07/22 Status: Ordered Start: 08-22-2018 End: 10-29-2023 take 1 tablet by mouth once daily Omeprazole Magnesium 20 MG tablet,delayed release (DR/EC) Discontinued 20 mg PO DAILY August 22, 2018 12:00am October 29, 2023 4:51pm pantoprazole 20 mg delayed release oral tablet (20 sources) Proton Pump Inhibitor Start: 08-15-2016 End: 11-30-2017 take 1 tablet by mouth once daily Pantoprazole 20 MG tablet Discontinued 20 mg PO DAILY 90 3 August 17, 2017 12:37pm November 30, 2017 3:47pm phentermine hydrochloride 37.5 mg oral tablet (20 sources) Sympathomimetic Amine Anorectic Start: 11-19-2021 End: [...] breakfast pravastatin sodium 40 mg oral tablet (10 sources) HMG-CoA Reductase Inhibitor Start: 06-04-2017 End: 07-03-2017 take 1 tablet by mouth at bedtime Pravastatin 40 mg tablet Discontinued 40 mg PO AT BEDTIME 07 05June 04, 2017 1:00am July 03, 2017 5:07pm predniSONE 20 mg oral tablet (6 sources) Start: 10-11-2024 End: 10-14-2024 take 1 tablet by mouth once daily Prednisone 20 mg tablet Discontinued 20 mg PO DAILY 20 October 11, 2024 12:00am October 14, 2024 8:52am rosuvastatin calcium 5 mg oral tablet (6 sources) HMG-CoA Reductase Inhibitor Start: 10-31-2023 End: 11-12-2023 take 1 tablet by mouth once daily Rosuvastatin 5 mg tablet Discontinued 5 mg PO DAILY 30 0 October 31, 2023 12:00am November 12, 2023 11:29am Zinc (10 sources) Start: 06-11-2020 End: 10-29-2023 take 1 [...] 2020 1:00am zonisamide 50 mg oral capsule (20 sources) Anti-epileptic Agent Start: 11-19-2021 End: 10-29-2023 take 1 capsule by mouth twice daily Zonisamide 50 mg capsule Discontinued 50 mg PO TWICE A DAY November 19, 2021 12:00am October 29, 2023 5:07pm SEIZURES Start: 12-19-2020 End: 11-19-2021 take 1 capsule by mouth once daily Zonisamide 25 mg capsule Discontinued 25 mg PO DAILY December 19, 2020 12:00am November 19, 2021 10:59am Problems Active Problems Problem Classification Problem Date Documented Da te Episodic/Chronic Abdominal hernia (8 sources) Umbilical hernia; Translations: [Umbilical hernia without obstruction or gangrene] Onset: 12-13-2024 11-30-2024 Episodic Acute myocardial infarction (10 sources) Myocardial infarction; Translations: [Non-ST elevation (NSTEMI) myocardial infarction] 08-22-2018 Chronic Conditions associated with dizziness or vertigo (12 sources) Dizziness; Translations: [Dizziness and giddiness] Episodic Coronary atherosclerosis and other heart disease (20 sources) Preinfarction syndrome; Translations: [Unstable angina] Onset: 10-14-2024 Chronic Comment on above: PCI-FLORY-Mid LAD [id number], MId and 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 06/25/2016 Coronary atherosclerosis and other heart disease (3 sources) Presence of coronary angioplasty implant and graft; Translations: [Percutaneous transluminal coronary angioplasty status] Onset: 11-25-2016 Episodic Disorders of lipid metabolism (19 sources) Hypercholesterolemia ; Translations: [Pure hypercholesterolemia , unspecified] Onset: 10-14-2024 Chronic Essential hypertension (19 sources) Essential hypertension; Translations: [Essential (primary) hypertension] Onset: 10-14-2024 Chronic Nonspecific chest pain (16 sources) Chest pain; Translations: [Chest pain, unspecified] 08-22-2018 Episodic Other and ill-defined heart disease (16 sources) Dissection of coronary artery; Translations: [Coronary [...] Onset: 08-20-2022 Chronic Other nervous system disorders (4 sources) Cervical myelopathy; Translations: [Disease of spinal cord, unspecified] 12-07-2024 Chronic Other nervous system disorders (3 sources) Paresthesia of lower extremity 07-07-2022 Episodic Other non-traumatic joint disorders (3 sources) Hip pain 07-07-2022 Episodic Other non-traumatic joint disorders (1 source) Pain in right hip joint; Translations: [Pain in right hip] Onset: 08-20-2022 Episodic Residual codes; unclassified (3 sources) Chronic pain 07-07-2022 Episodic Spondylosis; intervertebral disc disorders; other back problems (14 sources) Spondylosis without myelopathy or radiculopathy, lumbar region; Translations: [Other intervertebral disc degeneration, lumbar region] Onset: 08-13-2017 Chronic Spondylosis; intervertebral disc disorders; other back problems (20 sources) Sciatica, right side; Translations: [Lumbago with sciatica] Onset: 08-13-2017 07-07-2022 Episodic Unclassified (2 sources) M54.16 - Radiculopathy, lumbar region Unclassified (1 source) Other intervertebral disc degeneration, lumbar region without mention of lumbar back pain or lower extremity pain; Translations: [Other intervertebral disc degeneration, lumbar region without mention of lumbar back pain or lower extremity pain] Onset: 11-30-2024 Unclassified (1 source) Low back pain, unspecified; Translations: [Low back pain, unspecified] Onset: 10-18-2024 Past or Other Problems Problem Classification Problem Date Documented Da te Episodic/Chronic Bacterial infection (1 source) Rheumatic fever without heart involvement; Translations: [Rheumatic fever without heart involvement] Onset: 07-10-2017 Episodic Genitourinary symptoms and ill-defined conditions (7 sources) Nocturia; Translations: [Nocturia] Onset: 12-18-2023 12-18-2023 Episodic Other non-traumatic joint disorders (1 source) Pain in unspecified joint; Translations: [Pain in unspecified joint] Onset: 05-05-2017 Episodic Other screening for suspected conditions (not mental disorders or infectious disease) (2 sources) Elevated prostate specific antigen [PSA]; Translations: [Encounter for screening for malignant neoplasm of prostate] Onset: 06-09-2024 Episodic Unclassified (10 sources) dissection of coronary into ascending aorta Onset: 06-25-2016 05-30-2020 Results Test Name Value Interpretation Reference Range Facility [id number] 12-14-2024 MR/POSTOPAN2 [facility] Medical Records Department [address] [place] [id number] Anesthesia Postop Eval II 12/14/24 0026 MR#: [id number] Acct: [id number] Name: ARYAN ROBERTS Rep #: [id number] : 1965 59 From: Jacob Mckinney MD PCP: Dr. 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 Spontaneous unlabored Yes 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 respirations Mental status Awake,Calm 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 nausea No 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 Vomiting No 12/13/24 11:39 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 Anesthesia Postop Eval I: Fluid Summary Crystalloid volume administer 500 12/13/24 11:39 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 (ml) Colloids volume administered ( ml) Blood Product volume administered (ml) Total IV fluid infused 500 12/13/24 11:39 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 Anesthesia Postop Eval I: Summary Notes Anesthesia Complication No 12/13/24 11:39 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 Anesthesia Complication Comment: Post-operative progress note Anesthesia: Postop Eval II Evaluation Mental status: Awake and Calm Pain Level: 1 nausea: No Vomiting: No Complications Anesthesia Complication: No 12/14/24 0027 Date Jacob Mckinney MD Cosigner Signature: Date CC: Signed [facility] Discharge Instructionon Discharge Instruction [facility] Medical Records Department [address] [place] [address] Instructions for Home/Discharge Instructions 12/13/24 1125 MR#: [id number] Acct: [id number] Name: GRUPOPURNIMAARYAN Rep #: [id number] : 1965 59 From: Peter Perea MD PCP: Dr. Cosme Berger MD Status:REG [facility] Discharge Instructions Procedure Hernia Diet Discharge Diet: Light diet - advance as tolerated Activity Discharge Activity: May Not Drive (for 2-3 days or while taking narcotic pain meds.) and May Shower (with the bandage in place 1-2 days after surgery.) Lifting Restrictions: 20 pounds for 4 weeks. Additional Activity Instructions:: Climbing stairs is fine, walking is encouraged. Sitting in bed may be uncomfortable. Sitting up using your lateral muscles (sitting up sideways) is usually more comfortable. Do not drive, work heavy equipment of sign legal documents for 24 hours. Pain medications may cause nausea, you should typically eat light foods as you take your pain medications. Pain medications may also cause constipation. If you have difficulty with this, discuss with your doctor. Alternate ibuprofen and Tylenol for pain control, oxycodone for breakthrough pain. Resume aspirin and Plavix tomorrow Dressing / Incision Call your doctor if your incision/area has: Continuous Slow Oozing, Sudden Increased Bleeding, Increased Pain/ Swelling, Increased Redness and Foul Smelling Discharge Call your doctor if you observe: Fever of 101 or Higher Suture Line Care: Avoid Pulling/Pushing and Avoid Pinching/Bending Remove Dressing in: 3 days (Remove clear bandages in 2 days, remove Steri-Strips in 7 to 10 days.) Cleanse incision/area with: Soap Water Follow Up Care Please Follow Up With: Peter Perea MD When: Please call to schedule 2 week follow up appointment. [phone] Test Results: Test results from this visit will be discussed in further detail at your follow-up appointment, if applicable. Discharge Plan Admission Attending Provider: Peter Perea Primary Care Provider: Cosme Berger Instructions Print Language: Kosovan Discharge Orders/Prescriptions Prescriptions: New oxycodone 5 mg Tablet 5 - 10 mg PO Q4H PRN PRN (Reason: Pain Score 4-10) 5 Days Qty: 14 0RF No Action fenofibrate 160 mg tablet 160 mg PO DAILY oxycodone 5 mg tablet 5 mg PO Q6H PRN (Reason: pain) 3 Days Qty: 12 0RF methocarbamol 500 mg tablet 500 mg PO TID PRN (Reason: back pain) 3 Days Qty: 10 0RF finasteride 5 mg tablet 5 mg PO DAILY losartan 25 mg tablet 25 mg PO DAILY Patient Comments: HAS BEEN TAKING 12.5 MG DAILY artificial tears(hypromellose) 0.3 % drops 1 drp EACH EYE BID PRN (Reason: dry eye(s)) cholecalciferol (vitamin D3) 50 mcg (2,000 unit) capsule 50 mcg PO QODAY Rx Instructions: pt takes at night folic acid 800 mcg tablet 800 mcg PO BID meloxicam 15 mg tablet 15 mg PO DAILY aspirin 81 mg tablet,chewable 81 mg PO DAILY doxazosin 4 mg tablet 4 mg PO QHS Qty: 90 3RF clopidogrel 75 mg tablet 75 mg PO DAILY Qty: 90 3RF ezetimibe 10 mg tablet 10 mg PO DAILY Qty: 90 3RF Referrals / Follow Up: Cosme Berger MD [Primary Care Provider] - Disposition Disposition (needs filled in before D/C Order can be placed): Home, Self Care 12/13/24 112 Peter Perea MD CC: Dr. Cosme Berger MD Signed [facility] MR/POSTOP.ANEon 12-13-2024 MR/POSTOP.[facility] Medical Records Department [address] [place] [address] Anesthesia Postop Eval I 12/13/241135 MR#: [id number] Acct: [id number] Name: ARYAN ROBERTS Rep #: [id number] : 1965 59 From: Rhiannon Mcclellan CRNA PCP: Dr. Cosme Berger MD Status:REG [facility] Y Race: C Location: [place] [address] Anesthesia: Postop Eval I Current Vital Signs Temperature: 97.4 F Pulse Rate: 75 Blood Pressure: 143/84 Respiratory Rate: 16 Pulse Ox: 97 Oxygen Delivery Method: Room Air Assessment Airway patent: No Spontaneous unlabored respirations: Yes Mental status: Awake and Calm nausea: No Vomiting: No Anesthesia Complication: No Fluid Hydration Crystalloid volume administer (ml): 500 Total IV fluid infused: 500 Progress Note Anesthesia document: Postop Eval 1 completed: Yes 12/13/24 1139 Date Rhiannon Mcclellan BUILDINGS [employer] 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 Cosme Berger MD Status:[facility] Location: [place] [address] Operative Report (Standard) Operative Information Date of Procedure: 12/13/24 Pre-Operative Diagnosis: Umbilical hernia Post-Operative Diagnosis: Umbilical hernia Surgery/Procedure Performed: Umbilical hernia repair unhairing inspector: No Type of Anesthesia: General/Regional RN Documented Start/Stop Times: Operation Date: 12/13/24 11:00 Case Time Into Pre-Op 12/13/24 09:39 Out of Pre-Op 12/13/24 10:44 Anesthesia Start 12/13/24 10:47 Into Room 12/13/24 10:47 Procedure Start 12/13/24 11:09 Procedure Start Time: 11:09 Procedure Stop Time: 11:25 Select all DRAINS/GRAFTS/IMPLANTS that apply: None Estimated Blood Loss: 5 Specimen collected: No Description of surgery: Patient was brought back to the operating room and MAC anesthesia was induced. The abdomen was prepped and draped in usual sterile fashion. A curvilinear incision was marked inferior to the umbilicus and injected with local anesthetic. Incision was then made with a scalpel and deepened to the hernia sac. The hernia sac was removed from the umbilical stalk. The hernia contents were reduced and the hernia was closed with 0 PDS suture. The umbilical defect was approximately 5 mm. Next the cavity was irrigated and suctioned dry and then the skin was closed with interrupted 3-0 Vicryl sutures and Steri-Strips and bandages were applied. Surgical Findings: Small umbilical hernia Complications Complications: No Admit VTE Documentation VTE Mechan Device Prophylaxis: SCD's 12/13/241123 Cosigner Signature (if applicable): CC: Dr. Peter Perea MD; Dr. Cosme Berger MD Signed [facility] Orthopedic Visit Reporton Orthopedic Visit Report [facility] [address] [place] [address] OFFICE VISIT Date of Service: 12/07/24 MR#: [id number] Acct: [id number] Name: ARYAN ROBERTS Rep #: [id number] : 1965 Provider: Dr. Bowen Nagel MD Age/Sex: 59/M Location: [facility] Status: Signed Intake Vital Signs 10/18/24 11:02 11/30/24 08:22 Height 5 ft 7 in 5 ft 7 in Weight: 231 lb 6 oz BMI 36.2 BP 134/87 H Blood Pressure Location Rt brachial Position Sitting Respiration 18 Pulse 92 Pulse Source Monitor Temp 97.2 F L Temp Source Temporal Pulse Oximetry (%) 99 Oxygen Delivery Method room air Intake Visit Reasons: LUMBAR SPINE Chief Complaint: MRI Review Accompanied by: Self Is patient in pain?: Yes Pain scale (1-10): 8 Allergies atorvastatin (From Lipitor) Adverse Reaction (Severe, Verified 12/07/24 13:23) mylagias evolocumab (From Repatha SureClick) Adverse Reaction (Severe, Verified 12/07/24 13:23) Blurred vision metoprolol Adverse Reaction (Severe, Verified 12/07/24 13:23) Rash hydrocodone bitartrate (From Vicodin) Adverse Reaction (Intermediate, Verified 12/07/24 13:23) Itching pravastatin Adverse Reaction (Verified 12/07/24 13:23) GI upset and sore mouth Medications ???Medication ???Instructions ???Recorded ???Confirmed ???Type fenofibrate 160 mg tablet 160 mg PO DAILY CHOLESTEROL 12/07/24 History aspirin 81 mg chewable tablet 81 mg PO DAILY HEART HEALTH 12/07/24 History clopidogrel 75 mg tablet 75 mg PO DAILY #90 TABLETS 4 12/07/24 Rx doxazosin 4 mg tablet 4 mg PO QHS #90 TABLETS 01/18/24 0 12/07/24 Rx ezetimibe 10 mg tablet 10 mg PO DAILY #90 TABLETS 4 12/07/24 Rx artificial tears(hypromellose) 0.3 1 drp EACH EYE BID PRN dry eye(s ) 10/11/24 12/07/24 History % eye drops cholecalciferol (vitamin D3) 50 50 mcg PO QODAY 10/11/24 12/07/24 History mcg (2,000 unit) capsule finasteride 5 mg tablet 5 mg PO DAILY 10/11/24 12/07/24 Hi story folic acid 800 mcg tablet 800 mcg PO BID 10/11/24 12/07/24 H istory losartan 25 mg tablet 25 mg PO DAILY 10/11/24 12/07/24 H istory Held on 10/11/24. 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 Bowen Nagel MD 12/07/24 6407. Part of today???s visit was documented by Vivian Flood ATC, acting as scribe. ARYAN ROBERTS is a 59 year old M here today for lumbar spine MRI review. Patient rates his pain 8/10 and states the pain medications are not helping at all. He states he will occasionally take 1/2 of the oxycodone but he doesn't like how it makes him feel and it keeps him awake. He was also prescribed methocarbamol and he is unable to tell if it gives him relief. He states in order to sit down he has to lean to the right. He struggles to sit down for a long period of time. He describes the pain from his left buttocks down to the foot. He states laying down and walking too much increases his pain. He states he is unable to go to the grocery store without having an increase in his pain. Patient is scheduled to have a hernia surgery on Thursday12/13/2024 with surgical associates. The patient is a 59-year-old (more content not included)... [facility] Medical Records Department [address] [place] [address] PAT - Anesthesia 12/05/24 1804 MR#: [id number] Acct: [id number] Name: ARYAN ROBERTS Rep #: [id number] : 1965 59 From: Jacob Mckinney MD PCP: Dr. 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 When Was Last Pacemaker Check QUESTION #4 FULL TEXT: You/Your Family Experience fever (hyperthermia) with Anesthesia Last Oral Intake Last Oral intake: Last Oral Intake NPO since Meds taken in AM with sips of water? 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 Female No 12/01/24 11:14 HX of Motion Sickness No 12/01/24 11:14 HX of N/V After Surgery No 12/01/24 11:14 Non-Smoker Yes 12/01/24 11:14 Duration of Surgery greater Yes 12/01/24 11:14 than 60 minutes Number of Risk Factors 2 12/01/24 11:14 PONV Score Moderate Risk 12/01/24 11:14 Height Weight Height Weight: Anesthesia: Height Weight Height 5 ft 7 in 11/30/24 08:22 Respiratory Assessment Respiratory Assessment - telecommunications sales representative: Respiratory Tract Infection Hx - telecommunications sales representative Hx Respiratory Tract Infection No 12/01/24 11:14 STOP Sleep Apnea STOP Sleep Apnea - telecommunications sales representative: STOP Sleep Apnea - telecommunications sales representative Hx Hypertension Yes: COTROLLED WITH MEDS 12/01/24 11:14 Hx Sleep Apnea Yes 12/01/24 11:14 CPAP No 12/01/24 11:14 BIPAP No 12/01/24 11:14 Do you snore loudly (louder than talking or can be heard Do you often feel tired/ fatigued/ sleepy during daytime? Has anyone observed you stop breathing during sleep? STOP Results Positive 12/01/24 11:14 QUESTION #5 FULL TEXT : Do you snore loudly (louder than talking or can be heard through closed doors)? 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 Specify any problems Hx of Preganancy in last 3 N/A 12/01/24 11:14 Months Nurse Filling Out Transfusion [email or web address] 12/01/24 11:14 Questions: Date: 12/01/24 12/01/24 11:14 Time: 11:18 12/01/24 11:14 Patient unable to answer at this time (ie. 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) Essential hypertension Inflammatory polyarthropathy BPH (benign prostatic hyperplasia) GERD (gastroesophageal reflux disease) 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 [facility] Surgery Visit Reporton 11-30 Surgery Visit Report [facility] [address] [place] [address]. [address] [place] [address] OFFICE VISIT Date of Service: 11/30/24 MR#: [id number] Acct: [id number] Name: GRUPOPURNIMAARYAN Rep #: [id number] : 1965 Provider: Dr. Peter matthews MD Age/Sex: 59/M Location: [facility] Status: Signed Intake Vital Signs 10/18/24 11:02 11/30/24 08:22 Height 5 ft 7 in 5 ft 7 in Weight: 227 lb 231 lb 6 oz BMI 35.5 36.2 BP 134/87 H Blood Pressure Location Rt brachial Position Sitting Respiration 18 Pulse 92 Pulse Source Monitor Temp 97.2 F L Temp Source Temporal Pulse Oximetry (%) 99 Oxygen Delivery Method room air Intake Visit Reasons: UMBILICAL HERNIA Chief Complaint: umbilical hernia Is patient in pain?: Yes Allergies atorvastatin (From Lipitor) Adverse Reaction (Severe, Verified 11/30/24 08:23) mylagias evolocumab (From Repatha SureClick) Adverse Reaction (Severe, Verified 11/30/24 08:23) Blurred vision metoprolol Adverse Reaction (Severe, Verified 11/30/24 08:23) Rash hydrocodone bitartrate (From Vicodin) Adverse Reaction (Intermediate, Verified 11/30/24 08:23) Itching pravastatin Adverse Reaction (Verified 11/30/24 08:23) GI upset and sore mouth Medications ???Medication ???Instructions ???Recorded ???Confirmed ???Type fenofibrate 160 mg tablet 160 mg PO DAILY CHOLESTEROL 11/30/24 History aspirin 81 mg chewable tablet 81 mg PO DAILY HEART HEALTH 11/30/24 History nitroglycerin 0.4 mg sublingual 0.4 mg sublingual DAILY PRN CHEST 10/29/23 11/30/24 History tablet PAIN clopidogrel 75 mg tablet 75 mg PO DAILY #90 TABLETS 4 11/30/24 Rx doxazosin 4 mg tablet 4 mg PO QHS #90 TABLETS 01/18/24 0 11/30/24 Rx ezetimibe 10 mg tablet 10 mg PO DAILY #90 TABLETS 4 11/30/24 Rx artificial tears(hypromellose) 0.3 1 drp EACH EYE BID PRN dry eye(s ) 10/11/24 11/30/24 History % eye drops cholecalciferol (vitamin D3) 50 50 mcg PO QODAY 10/11/24 11/30/24 History mcg (2,000 unit) capsule finasteride 5 mg tablet 5 mg PO DAILY 10/11/24 11/30/24 Hi story folic acid 800 mcg tablet 800 mcg PO QHS 10/11/24 11/30/24 H istory losartan 25 mg tablet 25 mg PO DAILY 10/11/24 11/30/24 H istory Held on 10/11/24. Instructions: PT BP HAS BEEN LOW, SO PT HASNT BEEN TAKING mecobalamin (vitamin B12) 500 mcg 500 mcg PO DAILY 10/11/24 5 History chewable tablet methocarbamol 500 mg tablet 500 mg PO TID PRN back pain 3 days 10/11/24 11/30/24 Rx #10 tabs omeprazole 20 mg capsule,delayed 20 mg PO DAILY 10/11/24 11/30/24 H istory release oxycodone 5 mg tablet 5 mg PO Q6H PRN pain 3 days #12 11/30/24 Rx tabs clindamycin phosphate 1 % lotion topical 10/14/24 11/30/24 History duloxetine 60 mg capsule,delayed 120 mg PO DAILY 10/14/24 11/30/24 History release PFSH Medical History (Updated 11/30/24 @ 08:22 by Corinna Agarwal LPN) Umbilical hernia Coronary artery 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 He reports that sometimes it grows larger. It is painful and it causes tenderness that radiates down toward his pubic bone ROS General General: Yes weight change (gain); No appetite, fatigue, colon cancer, breast cancer or weakness HEENT HEENT: No difficulty swallowing, eye injury, eye surgery, swollen glands or hoarseness Endo Endocrine: No thyroid disease, diabetes mellitus, thyroid cancer, Hair loss, heat intolerance or cold intolerance Skin Skin: No rash or changing moles Musc Musculoskeletal: Yes back problems and arthritis; No rheumatoid arthritis, gout or joint pain Cardio Cardiovascular: Yes heart disease, high blood pressure, hea (more content not included)... [facility] Magnetic resonance imaging r eportOrdered By: Reyes Khan on 11-29-2024 Study report [facility] Imaging Services [address] [place] [address] Spine Lumbar (Routine) MR#: [id number] Acct: [id number] Name: ARYAN ROBERTS Rep #: [id number] : 1965 M 59 From: Savannah Khan MD PCP: Dr. Cosme Berger MD Status: R EG CLI Study:Spine Lumbar (Routine) Date of Exam: 11/26/24 Exam# [id number] Ordering Dr: Sammy Gould PROCEDURE: SPINE LUMBAR (ROUTINE) 11/26/2024 REASON FOR EXAM: PAIN TECHNIQUE: SPINE LUMBAR (ROUTINE) COMPARISON: Radiograph on 10/11/2024. FINDINGS: Mild diffuse spondylosis. Mild multilevel degenerative disc disease. There is normal signal intensity from the visualized bone marrow without evidence of replacement or acute fracture. The conus is unremarkable. Normal lumbar lordosis. Evaluation of the individual levels revealed the following: L5-S1: There is grade 1 retrolisthesis measuring 3.2 mm. Mild diffuse disc bulge. Bilateral facet joint arthropathy. The spinal canal is not narrowed. There is mild bilateral neural foramina narrowing. L4-5: There is grade 1 retrolisthesis measuring 3.4 mm. Mild diffuse disc bulge. Bilateral facet joint arthropathy and ligamentum flavum hypertrophy. The spinal canal is not narrowed. There is mild bilateral neural foramina narrowing. L3-4: There is mild diffuse disc bulge. The spinal canal is not narrowed. Thereis mild bilateral neural foramina narrowing. L2-3: There is minimal diffuse disc bulge. The spinal canal is not narrowed. There is no evidence of neural foramina narrowing. L1-2: There is minimal diffuse disc bulge. The spinal canal is not narrowed. There is no evidence of neural foramina narrowing. Normal visualized paraspinous soft tissue structures. MRI/Spine Lumbar (Routine) IMPRESSION: Degenerative disc disease. Reading Location: [place] [address] CC: DAVIE Zuñiga; Dr. Cosme Berger MD ~ Grief Counselor: Signed [facility] Spine Lumbar (Routine)on Spine Lumbar (Routine) [facility] Imaging Services [address] [place] [address] Spine Lumbar (Routine) MR#: [id number] Acct: [id number] Name: ARYAN ROBERTS Rep #: [id number] : 1965 M 59 From: Reyes pérze MD PCP: Dr. Cosme Berger MD Status: REG CLI Study: Spine Lumbar (Routine) Date of Exam: 11/26/24 Exam# [id number] Ordering Dr: Paola Gould PROCEDURE: SPINE LUMBAR (ROUTINE) 11/26/2024 REASON FOR EXAM: PAIN TECHNIQUE: SPINE LUMBAR (ROUTINE) COMPARISON: Radiograph on 10/11/2024. FINDINGS: Mild diffuse spondylosis. Mild multilevel degenerative disc disease. There is normal signal intensity from the visualized bone marrow without evidence of replacement or acute fracture. The conus is unremarkable. Normal lumbar lordosis. Evaluation of the individual levels revealed the following: L5-S1: There is grade 1 retrolisthesis measuring 3.2 mm. Mild diffuse disc bulge. Bilateral facet joint arthropathy. The spinal canal is not narrowed. There is mild bilateral neural foramina narrowing. L4-5: There is grade 1 retrolisthesis measuring 3.4 mm. Mild diffuse disc bulge. Bilateral facet joint arthropathy and ligamentum flavum hypertrophy. The spinal canal is not narrowed. There is mild bilateral neural foramina narrowing. L3-4: There is mild diffuse disc bulge. The spinal canal is not narrowed. There is mild bilateral neural foramina narrowing. L2-3: There is minimal diffuse disc bulge. The spinal canal is not narrowed. There is no evidence of neural foramina narrowing. L1-2: There is minimal diffuse disc bulge. The spinal canal is not narrowed. There is no evidence of neural foramina narrowing. Normal visualized paraspinous soft tissue structures. MRI/Spine Lumbar (Routine) IMPRESSION: Degenerative disc disease. Reading Location: [place] [address] CC: DAVIE Zuñiga; Dr. Cosme Berger MD Grief Counselor: Signed Normal [facility] L/S Spine Min 4 Viewson 10-06 L/S Spine Min 4 Views [facility] Imaging Services [address] [address] L/S Spine Min 4 Views MR#: [id number] Acct: [id number] Name: ARYAN ROBERTS Rep #: [id number] : 1965 M 59 From: Dwayne Bedolla MD PCP: Dr. Cosme Berger MD Status: DEP AMB Study: L/S Spine Min 4 Views Date of Exam: 10/18/24 Exam# [id number] Ordering Dr: Paola Gould PROCEDURE: L/S SPINE [...] Mild spondylotic changes as above. Reading Location: [facility] CC: DAVIE Zuñiga; Dr. 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 Part of today???s [...] shooting range recently and he went to slate picker his gun and he was on the ground for 1 (more content not included)... Normal [facility] Cardiology Visit Reporton Cardiology Visit Report [facility] [place] [address] OFFICE VISIT Date of Service: 10/14/24 MR#: [id number] Acct: [id number] Name: ARYAN ROBERTS Rep #: [id number] : 1965 Provider: DAVIE Rivera Age/Sex: 59/M Location: [facility] Status: Signed HPI HPI History of Present [...] coronary artery stent. He was evaluated at [facility] in October 2023 for chest discomfort. He [...] s/p ER but something still not right Geophysics Scientist Required: No Is patient in pain?: No [...] mg chewable tablet 81 mg PO DAILY [facility] 10/18/24 History nitroglycerin 0.4 mg sublingual 0.4 [...] Patient does not know all of medications [facility] Medical History Coronary artery dissection ( 06/08 (more content not included)... Normal [facility] 12 Lead EKGon 10-11-2024 12 Lead EKG [facility] Cardiovascular Services [address] [place] [address] 12 Lead EKG 10/11/24 09 MR#: [id number] Acct: [id number] Name: ARYAN ROBERTS Rep #: [id number] : 1965 59 From: Kal Simeon MD [...] rhythm Normal ECG Confirmed by Kal Simeon ([id number]), offline editor MAHOGANY MONTOYA ([id number]) on 10/14/2024 12:03:21 PM Referred By: CHEY Confirmed By: Kal Simeon 10/14/24 1203 Date Kal Simeon MD CC: Dr. Cosme Berger MD; Dr. Flaquito Huerta DO Signed Normal [facility] Absolute lymphocyte countOrd ered By: Flaquito Huerta on 10-11-2024 Lymphocytes Auto (Unsp spec) [#/Vol] 1.22 10*3/uL 0.83-4.51 [facility] Absolute neutrophil countOrd ered By: Flaquito Huerta on 10-11-2024 Neutrophils (Bld) [#/Vol] 3.4 10*3/uL 2.0-7.7 [facility] Anion gap in Serum or Plasma Ordered By: Flaquito Huerta on 10-11-2024 Anion gap [Moles/Vol] 13 mmol/L 5-15 [facility] Automated lymphocyte count a s percentage of total leukocytesOrdered By: Flaquito Huerta on 05-06-2025 Lymphocytes/100 WBC Auto (Unsp spec) 23.4 % 19-41 [facility] BUN/creatinine ratioOrdered By: Flaquito Huerta on 10-11-2024 Urea nitrogen/Creatinine [Mass ratio] 11.1 mg/mg - [facility] Basic Metabolic Profile (BMP )on 10-11-2024 BUN/CRE 11.1 RATIO Normal - [facility] Comment on above: Performed By: #### L 501.4021, L500.2500, L100.0100 ####[facility] [address] [place], [address] Calcium [Mass/Vol] 10.2 mg/dL Normal 7.6-11.0 [facility] Comment on above: Performed By: #### L 501.4021, L500.2500, L100.0100 ####[facility] [address] [place], [address] Chloride [Moles/Vol] 104 mmol/L Normal 98-108 [facility] Comment on above: Performed By: #### L 501.4021, L500.2500, L100.0100 ####[facility] [address] [place], [address] CO2 [Moles/Vol] 21.8 mmol/L Normal 21.0-32.0 [facility] Comment on above: Performed By: #### L 501.4021, L500.2500, L100.0100 ####[facility] [address] [place], [address] Creatinine [Mass/Vol] 1.29 mg/dL High 0.70-1.20 [facility] Comment on above: Performed By: #### L 501.4021, L500.2500, L100.0100 ####[facility] [address] [place], [address] ECRCL 72.48 ml/min Normal 50-250 [facility] Comment on above: Performed By: #### L 501.4021, L500.2500, L100.0100 ####[facility] [address] [place], [address] GAP 13 Normal 5-15 [facility] Comment on above: Performed By: #### L 501.4021, L500.2500, L100.0100 ####[facility] [address] [place], [address] GFR/1.73 sq M.predicted among non-blacks MDRD (S/P/Bld) [Vol rate/Area] 64 mL/min/{1.73_m2} Normal >60 [facility] Comment on above: Result Comment: mL/m in/1.73m2 CKD-EPI Creatinine Equation (2020) Performed By: #### L 501.4021, L500.2500, L100.0100 ####[facility] [address] [place], [address] Glucose [Mass/Vol] 130 mg/dL High 70-99 [facility] Comment on above: Performed By: #### L 501.4021, L500.2500, L100.0100 ####[facility] [address] [place], [address] Potassium [Moles/Vol] 4.2 mmol/L Normal 3.3-5.1 [facility] Comment on above: Performed By: #### L 501.4021, L500.2500, L100.0100 ####[facility] [address] [place], [address] Sodium [Moles/Vol] 138 mmol/L Normal 133-145 [facility] Comment on above: Performed By: #### L 501.4021, L500.2500, L100.0100 ####[facility] [address] [place], [address] Urea nitrogen [Mass/Vol] 14 mg/dL Normal 4-19 [facility] Comment on above: Performed By: #### L 501.4021, L500.2500, L100.0100 ####[facility] [address] [place], [address] Basophil percentageOrdered B y: Flaquito Huerta on 10-11-2024 Basophils/100 WBC (Bld) 1.0 % 0-1 [facility] CBC W/Diff, Automatedon Absolute Lymph 1.22 X10 3/uL Normal 0.83-4.51 [facility] Comment on above: Performed By: #### L 501.4021, L500.2500, L100.0100 #### [facility] [address] [place], [address] Absolute Neut 3.4 X10 3/uL Normal 2.0-7.7 [facility] Comment on above: Performed By: #### L 501.4021, L500.2500, L100.0100 #### [facility] [address] [place], [address] Basophils/100 WBC (Bld) 1.0 % Normal 0-1 [facility] Comment on above: Performed By: #### L 501.4021, L500.2500, L100.0100 #### [facility] [address] [place], [address] Eosinophils/100 WBC (Bld) 1.7 % Normal 0-5 [facility] Comment on above: Performed By: #### L 501.4021, L500.2500, L100.0100 #### [facility] [address] [place], [address] Erythrocyte distribution width (RBC) [Ratio] 13.5 % Normal 11.6-14.6 [facility] Comment on above: Performed By: #### L 501.4021, L500.2500, L100.0100 #### [facility] [address] [place], [address] Hematocrit (Bld) [Volume fraction] 48.2 % Normal 40-54 [facility] Comment on above: Performed By: #### L 501.4021, L500.2500, L100.0100 #### [facility] [address] [place], [address] Hemoglobin (Bld) [Mass/Vol] 17.1 g/dL High 13.0-16.5 [facility] Comment on above: Performed By: #### L 501.4021, L500.2500, L100.0100 #### [facility] [address] [place], [address] IG% 0.400 Normal 0.0-0.9 [facility] Comment on above: Result Comment: IG% - Immature Granulocytes (promyelocytes, myelocytes and metamyelocytes) > 1% indicates that a LEFT SHIFT is Present. Performed By: #### L 501.4021, L500.2500, L100.0100 #### [facility] [address] [place], [address] Lymphocytes/100 WBC (Bld) 23.4 % Normal 19-41 [facility] Comment on above: Performed By: #### L 501.4021, L500.2500, L100.0100 #### [facility] [address] [place], [address] MCH (RBC) [Entitic mass] 31.4 pg Normal 27.0-32.0 [facility] Comment on above: Performed By: #### L 501.4021, L500.2500, L100.0100 #### [facility] [address] [place], [address] MCHC (RBC) [Mass/Vol] 35.5 g/dL Normal 32-36 [facility] Comment on above: Performed By: #### L 501.4021, L500.2500, L100.0100 #### [facility] [address] [place], [address] MCV (RBC) [Entitic vol] 88.6 fL Normal 80-94 [facility] Comment on above: Performed By: #### L 501.4021, L500.2500, L100.0100 #### [facility] [address] [place], [address] Monocytes/100 WBC (Bld) 8.4 % Normal 0-10 [facility] Comment on above: Performed By: #### L 501.4021, L500.2500, L100.0100 #### [facility] [address] [place], [address] Neutrophils/100 WBC (Bld) 65.1 % Normal 47-70 [facility] Comment on above: Performed By: #### L 501.4021, L500.2500, L100.0100 #### [facility] [address] [place], [address] Nucleated RBC (Bld) [#/Vol] 0 10*3/uL Normal 0-5 [facility] Comment on above: Performed By: #### L 501.4021, L500.2500, L100.0100 #### [facility] [address] [place], [address] Platelet mean volume (Bld) [Entitic vol] 9.7 fL Normal 6.2-12.0 [facility] Comment on above: Performed By: #### L 501.4021, L500.2500, L100.0100 #### [facility] [address] [place], [address] Platelets (Bld) [#/Vol] 267 10*3/uL Normal 150-450 [facility] Comment on above: Performed By: #### L 501.4021, L500.2500, L100.0100 #### [facility] [address] [place], [address] RBC (Bld) [#/Vol] 5.44 10*6/uL Normal 4.6-6.2 [facility] Comment on above: Performed By: #### L 501.4021, L500.2500, L100.0100 #### [facility] [address] [place], [address] RDW SD 43.6 fl Normal 35.1-43.9 [facility] Comment on above: Performed By: #### L 501.4021, L500.2500, L100.0100 #### [facility] [address] [place], [address] WBC (Bld) [#/Vol] 5.2 10*3/uL Normal 4.4-11.0 [facility] Comment on above: Performed By: #### L 501.4021, L500.2500, L100.0100 #### [facility] [address] [place], [address] Carbon dioxide, total [Moles /volume] in Central venous bloodOrdered By: Flaquito Huerta on 10-11-2024 CO2 [Moles/Vol] 21.8 mmol/L 21.0-32.0 [facility] Chest 1 View (Portable)on Chest 1 View (Portable) [facility] Imaging Services [address] [place] [address] Chest 1 View (Portable) MR#: [id number] Acct: [id number] Name: ARYAN ROBERTS Rep #: [id number] : 1965 M 59 From: Colton August MD PCP: Dr. Cosme Berger MD Status: PRE ER Study: Chest 1 View (Portable) Date of Exam: 10/11/24 Exam# [id number] Ordering Dr: Flaquito Huerta DO PROCEDURE: CHEST [...] 2. Additional description as above. Reading Location: [id number] CC: Dr. Cosme Berger MD; Dr. Flaquito Huerta DO Grief Counselor: Signed Normal [facility] Chloride assayOrdered By: Yaquelin Huerta on 10-11-2024 Chloride [Moles/Vol] 104 mmol/L 98-108 [facility] Emergency Department Summary on 10-11-2024 Emergency Department Summary [facility] Medical Records Department [address] [place] [address] Emergency Department Summary 10/11/24 MR#: [id number] Acct: [id number] Name: ARYAN ROBERTS Rep #: [id number] : 1965 59 From: Flaquito Huerta DO PCP: Dr. 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 Normal [facility] Eosinophil percentageOrdered By: Flaquito Huerta on 10-11-2024 Eosinophils/100 WBC (Bld) 1.7 % 0-5 [facility] Erythrocyte distribution wid th ratioOrdered By: Flaquito Huerta on 10-11-2024 Erythrocyte distribution width (RBC) [Ratio] 13.5 % 11.6-14.6 [facility] Erythrocyte distribution wid th standard deviationOrdered By: Flaquito Huerta on 10-11-2024 Erythrocyte distribution width (RBC) [Ratio] 43.6 fl 35.1-43.9 [facility] Glomerular filtration rate ( GFR) estimation/1.73 sq m using serum, plasma, or whole bOrdered By: Flaquito Huerta on 10-11-2024 GFR/1.73 sq M.predicted among non-blacks MDRD (S/P/Bld) [Vol rate/Area] 64 mL/min/{1.73_m2} >60 [facility] Comment on above: mL/min/1.73m2 CKD-EP I Creatinine Equation (2020) Hematocrit Auto (Bld) [Volum e fraction]Ordered By: Flaquito Huerta on 10-11-2024 Hematocrit (Bld) [Volume fraction] 48.2 % 40-54 [facility] Hemoglobin measurementOrdere d By: Flaquito Huerta on 10-11-2024 Hemoglobin (Bld) [Mass/Vol] 17.1 g/dL High 13.0-16.5 [facility] Immature granulocytes/100 WB C Auto (Bld)Ordered By: Flaquito Huerta on 10-11-2024 Immature granulocytes/100 WBC (Bld) 0.400 % 0.0-0.9 [facility] Comment on above: IG% - Immature Granu locytes (promyelocytes, myelocytes and metamyelocytes) > 1% indicates that a LEFT SHIFT is Present. L499.0042on 10-11-2024 Trop T High Sen Normal <=22 [facility] Comment on above: Result Comment: Ana Lilia robles via OM: Ordered Performed By: #### L 499.0042 ####[facility] [address] [place], [address] L501.4021on 10-11-2024 Trop T High Sen 11 ng/L Normal <=22 [facility] Comment on above: Performed By: #### L 501.4021, L500.2500, L100.0100 ####[facility] [address] [place], [address] MCV (mean corpuscular volume ) determinationOrdered By: Flaquito Huerta on 10-11-2024 MCV (RBC) [Entitic vol] 88.6 fL 80-94 [facility] Mean corpuscular hemoglobin (MCH) determinationOrdered By: Flaquito Huerta on 10-11-2024 MCH (RBC) [Entitic mass] 31.4 pg 27.0-32.0 [facility] Mean corpuscular hemoglobin concentration (MCHC) determinationOrdered By: Flaquito Huerta on 10-11-2024 MCHC (RBC) [Mass/Vol] 35.5 g/dL 32-36 [facility] Mean platelet volume determi nationOrdered By: Flaquito Huerta on 10-11-2024 Platelet mean volume (Bld) [Entitic vol] 9.7 fL 6.2-12.0 [facility] Monocyte percentageOrdered B y: Flaquito Huerta on 10-11-2024 Monocytes/100 WBC (Bld) 8.4 % 0-10 [facility] Neutrophil percentageOrdered By: Flaquito Huerta on 10-11-2024 Neutrophils/100 WBC (Bld) 65.1 % 47-70 [facility] Nucleated red blood cell per centageOrdered By: Flaquito Huerta on 10-11-2024 Nucleated RBC/100 WBC (Bld) [Ratio] 0 % 0-5 [facility] Platelet countOrdered By: Yaquelin Huerta on 10-11-2024 Platelets (Bld) [#/Vol] 267 10*3/uL 150-450 [facility] Potassium measurement (mass/ volume)Ordered By: Flaquito Huerta on 10-11-2024 Potassium (Unsp spec) [Mass/Vol] 4.2 mmol/L 3.3-5.1 [facility] RBC Auto (Bld) [#/Vol]Ordere d By: Flaquito Huerta on 10-11-2024 RBC (Bld) [#/Vol] 5.44 10*6/uL 4.6-6.2 [facility] Serum creatinine measurement (mass/volume)Ordered By: Flaquito Huerta on 10-11-2024 Creatinine [Mass/Vol] 1.29 mg/dL High 0.70-1.20 [facility] Serum glucose measurement (m ass/volume)Ordered By: Flaquito Huerta on 10-11-2024 Glucose [Mass/Vol] 130 mg/dL High 70-99 [facility] Serum or plasma calcium brad urement (mass/volume)Ordered By: Flaquito Huerta on 10-11-2024 Calcium [Mass/Vol] 10.2 mg/dL 7.6-11.0 [facility] Serum or plasma urea nitroge n measurement (mass/volume)Ordered By: Flaquito Huerta on 10-11-2024 Urea nitrogen [Mass/Vol] 14 mg/dL 4-19 [facility] Sodium levelOrdered By: Jazlyn Huerta on 10-11-2024 Sodium [Moles/Vol] 138 mmol/L 133-145 [facility] Troponin T.cardiac [Mass/vol ume] in Serum or Plasma by High sensitivity methodOrdered By: Flaquito Huerta on 10-11-2024 Troponin T.cardiac High sensitivity method [Mass/Vol] 11 ng/L <22 [facility] White blood cell (WBC) count Ordered By: Flaquito Huerat on 10-11-2024 WBC (Bld) [#/Vol] 5.2 10*3/uL 4.4-11.0 [facility] PSA,Total- Diagnosticon 02-0 PSA, DIAGNOSTIC 3.06 ng/mL Normal 0.0-4.0 [facility] Comment on above: Result Comment: This test was performed using the TPSA assay method for the [employer] system. Values obtained with different assay methods cannot be used interchangably. When changing PSA assays in the course of monitoring a patient, additional sequential testing should be carried out to confirm baseline values. Performed By: #### L 501.9940 #### [facility] [address] [place], [address] PSA,Total - Annual Screenon 01-11-2024 PSA,TOT SCREEN 5.55 ng/mL High 0.00-4.00 [facility] Comment on above: Result Comment: This test was performed using the TPSA assay method for the [employer] chemistry system. Values obtained with different assay methods cannot be used interchangably. When changing PSA assays in the course of monitoring a patient, additional sequential testing should be carried out to confirm baseline values. Performed By: #### L 501.9910 ####[facility] [address] [place], [address] Cardiology Visit Reporton Cardiology Visit Report [facility] [address] [place] [address] OFFICE VISIT Date of Service: 12/18/23 MR#: [id number] Acct: [id number] Name: ARYAN ROBERTS Rep #: [id number] : 1965 Provider: ANTONIO cedillo Age/Sex: 58/M Location: [facility] Status: Signed [facility] History of Present Illness Details: Aryan [...] coronary artery stent. He was evaluated at [facility] in October 2023 for chest discomfort. 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 Normal [facility] RFon 07-10-2022 Rheumatoid Factor <6.0 Normal <=6.0 [facility] ([place]) Comment on above: Result Comment: RF I [...] tests. These results were obtained with the [employer] Lite RF IgM KWESI. RF IgM values obtained with different manufacturers' assay methods may not be used interchangeably. The magnitude of the reported IgM levels cannot be correlated to an endpoint titer. Performed By: #### T ESTO, RF, JOSE, LIZA #### [address] [address] #### ESR, URIC, VIDH #### [address] [address] .ANATon 07-09-2022 JOSE Pattern 1 Speckled Normal [facility] ([place]) Comment on above: Result Comment: At [facility], an JOSE titer of less than 160 is not considered suggestive of significant rheumatoid disease. If clinical suspicion is high, suggest repeat testing in 1-2 months. Performed By: #### T ESTO, RF, JOSE, LIZA #### [address] [address] #### ESR, URIC, VIDH #### [address] [address] JOSE Titer 1 40 Normal [facility] ([place]) Comment on above: Performed By: #### T ESTO, RF, JOSE, LIZA #### [address] [address] #### ESR, URIC, VIDH #### [address] [address] ANAon 07-09-2022 JOSE See Titer Normal Neg 40 [facility]) Comment on above: Result Comment: JOSE Screen and Titer methodology is an immunofluorescent technique utilizing Hep2 Substrate. Performed By: #### T ESTO, RF, JOSE, LIZA #### [address] [address] #### ESR, URIC, VIDH #### [address] [address] XR HIP MINIMUM 2 VIEWS RIGHT on [...] 07/09/2022 3:13:16 PM Ordering Provider: CONSTANTINO BERGMAN [facility] ([place]) XR SPINE LUMBAR AP/LAT/FLEX/ EXTon 07-09-2022 XR [...] 07/09/2022 3:12:14 PM Ordering Provider: CONSTANTINO BERGMAN [facility] ([place] ESRon 07-08-2022 Erythrocyte Sed Rate 4 mm/hr Normal 0-20 [facility]) Comment on above: Performed By: #### T ESTO, RF, JOSE, LIZA #### [place] [address] #### ESR, URIC, VIDH #### [address] [address] LABORATORYOrdered By: Izabela Love on 07-08-2022 ESR [...] Testosterone Lvl 277.41 ng/dL Normal 86.98-780. 10 [facility] ([place]) Comment on above: Result Comment: Norm al Reference Ranges for Females: Female Premenopause Age 21-60 9.01-47.94 ng/dL Female Postmenopause Age 45-89 <7.00-45.62 ng/dL Performed By: #### DANIELLE BETTS ANA, LIZA #### [place] [address] #### ESR, URIC, VIDH #### [place] [id number] URICon 07-08-2022 Uric Acid Lvl 4.2 mg/dL Normal 3.5-7.2 [facility] ([place]) Comment on above: Performed By: #### DANIELLE BETTS ANA, LIZA #### [place] [address] #### ESR, URIC, VIDH #### [address] [address] VIDHon 07-08-2022 Vit. D 25-Hydroxy 36.7 ng/mL Normal [facility] ([place]) Comment on above: Result Comment: Inte rpretive Values Based on Total 25(OH) Vitamin D: Deficient <20 ng/mL Insufficient 20 - <30 ng/mL Sufficient 30-100 ng/mL Performed By: #### DANIELLE BETTS ANA, LIZA #### [place] [address] #### ESR, URIC, VIDH #### [address] [address] Absolute lymphocyte counton 11-19-2021 Lymphocytes Auto (Unsp spec) [#/Vol] 1.02 10*3/uL 0.83-4.51 [facility] Work Phone: Basophil percentageon 2021 Basophils/100 WBC (Bld) 0.9 % 0-1 [facility] Work Phone: Bilirubin [Mass/Vol] 0.30 mg/dL 0.20-1.00 [facility] Work Phone: Comment on above: For patients on eltr ombopag therapy, use of Dimension [place] TBIL is not recommended. Chloride [Moles/Vol] 109 mmol/L 98-107 [facility] Work Phone: Cholesterol [Mass/Vol] 182 mg/dL <200 [facility] Work Phone: Comment on above: <200 mg/dL Desirable 200-240 mg/dL Borderline >240 mg/dL High Risk Eosinophils/100 WBC (Bld) 1.5 % 0-5 [facility] Work Phone: Glucose [Mass/Vol] 107 mg/dL 74-106 [facility] Work Phone: Comment on above: Fasting Glucose resu lt from 100 to 125 mg/dL suggests IMPAIRED HOMEOSTASIS per A.D.A. criteria. Neutrophils (Bld) [#/Vol] 3.6 10*3/uL 2.0-7.7 [facility] Work Phone: Neutrophils/100 WBC (Bld) 68.4 % 47-70 [facility] Work Phone: Potassium [Moles/Vol] 4.0 mmol/L 3.5-5.1 [facility] Work Phone: Protein [Mass/Vol] 7.5 g/dL 6.4-8.2 [facility] Work Phone: [phone] Sodium [Moles/Vol] 139 mmol/L 136-145 [facility] Work Phone: Triglyceride [Mass/Vol] 111 mg/dL <199 [facility] Work Phone: Comment on above: The drugs N-Acetylcy steine and Metamizole may falsely depress this assay.Serum Triglycerides Reference Interval Normal <150 mg/dL Borderline high 150 - 199 mg/dL High 200 - 499 mg/dL Very High > or = 500 mg/dL WBC (Bld) [#/Vol] 5.3 10*3/uL 4.4-11.0 [facility] Work Phone: Blood erythrocytes count (nu mber/volume)on 11-19-2021 RBC (Bld) [#/Vol] 4.86 10*6/uL 4.6-6.2 [facility]: Blood hemoglobin measurement (mass/volume)on 11-19-2021 Hemoglobin (Bld) [Mass/Vol] 15.4 g/dL 13.0-16.5 [facility] Work Phone: Blood lymphocytes/100 leukoc yteson 11-19-2021 Lymphocytes/100 WBC (Bld) 19.3 % 19-41 [facility] Work Phone: [phone] Blood monocytes/100 leukocyt eson 11-19-2021 Monocytes/100 WBC (Bld) 9.5 % 0-10 [facility] Work Phone: Blood platelet mean volumeon 11-19-2021 Platelet mean volume (Bld) [Entitic vol] 9.7 fL 6.2-12.0 [facility] Work Phone: Determination of erythrocyte mean corpuscular volume (MCV)on 11-19-2021 MCV (RBC) [Entitic vol] 92.8 fL 80-94 [facility] Work Phone: Erythrocyte sedimentation ra clinton 11-19-2021 ESR (Bld) [Velocity] 22 mm/h 0-20 [facility] Work Phone: [phone] Hematocrit Auto (Bld) [Volum e fraction]on 11-19-2021 Hematocrit (Bld) [Volume fraction] 45.1 % 40-54 [facility] Work Phone: Laboratory - Chemistry and C hemistry - challengeon 11-19-2021 ALP [Catalytic activity/Vol] 61 U/L 45-117 [facility] Work Phone: ALT [Catalytic activity/Vol] 27 U/L 16-61 [facility] Work Phone: CO2 [Moles/Vol] 24.0 mmol/L 21.0-32.0 [facility] Work Phone: Globulin (S) [Mass/Vol] 3.6 g/dL 2.2-4.2 [facility] Work Phone: Urea nitrogen/Creatinine [Mass ratio] 10.6 mg/mg 10-20 [facility] Work Phone: Laboratory - Hematology and Cell countson 11-19-2021 Erythrocyte distribution width (RBC) [Entitic vol] 44.2 fL 35.1-43.9 [facility] Work Phone: Erythrocyte distribution width (RBC) [Ratio] 13.0 % 11.6-14.6 [facility] Work Phone: Immature granulocytes/100 WBC (Bld) 0.400 % 0.0-0.9 [facility] Work Phone: Comment on above: IG% - Immature Granu locytes (promyelocytes, myelocytes and metamyelocytes) > 1% indicates that a LEFT SHIFT is Present. MCH (RBC) [Entitic mass] 31.7 pg 27.0-32.0 [facility] Work Phone: Nucleated RBC/100 WBC (Bld) [Ratio] 0 % 0-5 [facility] Work Phone: MCHC Auto (RBC) [Mass/Vol]on 11-19-2021 MCHC (RBC) [Mass/Vol] 34.1 g/dL 32-36 [facility] Work [facility]: No Panel Informationon 11-19 Estimated GFR (MDRD) Amer 66 mL/min >60 [facility] Work Phone: Comment on above: GFR Calc Estimated GFR (MDRD) Non-Af Amer 55 mL/min >60 [facility] Work Phone: Comment on above: Non- GFR Calc Homocysteine 14.8 umol/L 3.2-10.7 [facility] Work Phone: Troponin I High Sensitivity 4 pg/mL 3.0-78.0 [facility] Work Phone: Comment on above: Please Note: New Nneka t Units and Gender Specific Reference Ranges. For more information see Policy Stat Procedure [place] High Sensitivity Troponin (TNIH) and attachments. Platelets bldon 11-19-2021 Platelets (Bld) [#/Vol] 238 10*3/uL 150-450 [facility] Work Phone: Serum or plasma albumin brad urement (mass/volume)on 11-19-2021 Albumin [Mass/Vol] 3.9 g/dL 3.2-5.0 [facility] Work Phone: Serum or plasma albumin/glob ulin mass ratioon 11-19-2021 Albumin/Globulin [Mass ratio] 1.1 {ratio} 0.9-2.4 [facility] Work Phone: Serum or plasma calcium brad urement (mass/volume)on 11-19-2021 Calcium [Mass/Vol] 9.4 mg/dL 8.5-10.1 [facility] Work Phone: Serum or plasma cholesterol in HDL measurement (mass/volume)on 11-19-2021 Cholesterol in HDL [Mass/Vol] 36 mg/dL >40 [facility] Work Phone: Comment on above: The drugs N-Acetylcy steine and Metamizole may falsely depress this assay. Reference Range HDL <40 mg/dL Low HDL Cholesterol HDL >or= 60 mg/dL High HDL Cholesterol Serum or plasma cholesterol in VLDL measurement (mass/volume)on 11-19-2021 Cholesterol in VLDL [Mass/Vol] 22 mg/dL 5-40 [facility] Work Phone: Serum or plasma creatinine m easurement (mass/volume)on 11-19-2021 Creatinine [Mass/Vol] 1.42 mg/dL 0.70-1.30 [facility] Work Phone: Comment on above: The validity of the calculated GFR & GFRAA in patients over 70 years has not been determined. Clinical correlation is essential. Serum or plasma low density lipoprotein (LDL) cholesterol measurement (mass/volume)on 11-19-2021 Cholesterol in LDL [Mass/Vol] 124 mg/dL 0-130 [facility] Work Phone: Serum or plasma urea nitroge n measurement (mass/volume)on 11-19-2021 Urea nitrogen [Mass/Vol] 15 mg/dL 7-18 [facility] Work Phone: Thin prep Papanicolaou smear with manual screeningon 11-19-2021 Thin prep Papanicolaou smear with manual screening 14 U/L 15-37 [facility] Work Phone: Thin prep Papanicolaou smear with manual screening 6 5-15 [facility] Work Phone: Basophil percentageon 2021 Bilirubin [Mass/Vol] 0.30 mg/dL 0.20-1.00 [facility] Work Phone: Comment on above: For patients on eltr ombopag therapy, use of Dimension [place] TBIL is not recommended. Cholesterol [Mass/Vol] 189 mg/dL <200 [facility] Work Phone: Comment on above: <200 mg/dL Desirable 200-240 mg/dL Borderline >240 mg/dL High Risk Protein [Mass/Vol] 7.4 g/dL 6.4-8.2 [facility] Work Phone: Triglyceride [Mass/Vol] 95 mg/dL <199 [facility] Work Phone: Comment on above: The drugs N-Acetylcy steine and Metamizole may falsely depress this assay.Serum Triglycerides Reference Interval Normal <150 mg/dL Borderline high 150 - 199 mg/dL High 200 - 499 mg/dL Very High > or = 500 mg/dL Direct bilirubinon 2 Bilirubin.direct [Mass/Vol] 0.12 mg/dL 0.00-0.30 [facility] Work Phone: Laboratory - Chemistry and C hemistry - challengeon 11-18-2021 ALP [Catalytic activity/Vol] 55 U/L 45-117 [facility] Work Phone: ALT [Catalytic activity/Vol] 27 U/L 16-61 [facility] Work Phone: Globulin (S) [Mass/Vol] 3.5 g/dL 2.2-4.2 [facility] Work Phone: Serum or plasma albumin brad urement (mass/volume)on 11-18-2021 Albumin [Mass/Vol] 3.9 g/dL 3.2-5.0 [facility] Work Phone: Serum or plasma cholesterol in HDL measurement (mass/volume)on 11-18-2021 Cholesterol in HDL [Mass/Vol] 38 mg/dL >40 [facility] Work Phone: Comment on above: The drugs N-Acetylcy steine and Metamizole may falsely depress this assay. Reference Range HDL <40 mg/dL Low HDL Cholesterol HDL >or= 60 mg/dL High HDL Cholesterol Serum or plasma cholesterol in VLDL measurement (mass/volume)on 11-18-2021 Cholesterol in VLDL [Mass/Vol] 19 mg/dL 5-40 [facility] Work Phone: Serum or plasma low density lipoprotein (LDL) cholesterol measurement (mass/volume)on 11-18-2021 Cholesterol in LDL [Mass/Vol] 132 mg/dL 0-130 [facility] Work Phone: Thin prep Papanicolaou smear with manual screeningon 11-18-2021 Thin prep Papanicolaou smear with manual screening 19 U/L 15-37 [facility] Work Phone: BMPon 10-28-2019 Anion gap [Moles/Vol] 7 mmol/L Normal 5-16 [facility] Comment on above: Order Comment: Crystal s: M Performed By: #### L 500.84757, L5.89134 #### [facility] [address] [place] [address] Calcium [Mass/Vol] 9.1 mg/dL Normal 8.5-10.1 [facility] Comment on above: Order Comment: Crystal s: M Performed By: #### L 500.42689, L500.79268 #### [facility] [address] [place] [id number] Chloride [Moles/Vol] 107 mmol/L Normal 98-107 [facility] Comment on above: Order Comment: Campu s: M Performed By: #### L 500.25228, 04473 #### [facility] [address] [place] [address] CO2 [Moles/Vol] 26 mmol/L Normal 21-32 [facility] Comment on above: Order Comment: Campu s: M Performed By: #### L 500.52758, 20044 #### [facility] [address] [place] [address] Creatinine [Mass/Vol] 1.030 mg/dL Normal 0.670- 1.17 0 [facility] Comment on above: Order Comment: Campu s: M Result Comment: Ally ents receiving either N-Acetylcysteine (NAC) or Metamizole prior to venipuncture, may have falsely depressed results. Performed By: #### L 500.61795, 93942 #### [facility] [address] [place] [address] Glucose [Mass/Vol] 88 mg/dL Normal 70-100 [facility] Comment on above: Order Comment: Campu s: M Result Comment: 70-1 00- Normal Fasting; 100-125 Impaired Fasting; greater than 126 on more than one result- Diabetes. ADA guidelines. Results may be falsely elevated after the administration of Sulfapyridine. Results may be falsely depressed after the administration of Sulfasalazine. Performed By: #### L 500.47958, .67893 #### [facility] [place] [id number] Potassium [Moles/Vol] 4.0 mmol/L Normal 3.5-5.1 [facility] Comment on above: Order Comment: Campu s: M Performed By: #### L 500.78206, 12051 #### [facility] [address] [place], [place] [address] Sodium [Moles/Vol] 141 mmol/L Normal 136-145 [facility] Comment on above: Order Comment: Campu s: M Performed By: #### L 500.87712, L500.78493 #### [facility] [address] [place] [address] Urea nitrogen [Mass/Vol] 9 mg/dL Normal 7-26 [facility] Comment on above: Order Comment: Campu s: M Performed By: #### L 500.05261, L500.84907 #### [facility] [address] [place] [address] Urea nitrogen/Creatinine [Mass ratio] 9 mg/mg Low 15-24 [facility] Comment on above: Order Comment: Campu s: M Performed By: #### L 500.19257, L500.41258 #### [facility] [address] [place] [address] CBCon 10-28-2019 Erythrocyte distribution width (RBC) [Ratio] 13.3 % Normal 11-14.5 [facility] Comment on above: Order Comment: Campu s: M Performed By: #### L 200.74541 #### [facility] [address] [place], [place] [phone] Hematocrit (Bld) [Volume fraction] 47.2 % Normal 41.0-53.0 [facility] Comment on above: Order Comment: Campu s: M Performed By: #### L 200.03602 #### [facility] [address] [place] [address] Hemoglobin (Bld) [Mass/Vol] 16.2 g/dL Normal 13.5-17.5 [facility] Comment on above: Order Comment: Campu s: M Performed By: #### L 200.19005 #### [facility] [address] [place] [address] MCHC (RBC) [Mass/Vol] 34.3 g/dL Normal 32.0-36.0 [facility] Comment on above: Order Comment: Campu s: M Performed By: #### L 200.43553 #### [facility] [address] [place] [address] MCV (RBC) [Entitic vol] 92.7 fL Normal 80.0-99.0 [facility] Comment on above: Order Comment: Campu s: M Performed By: #### L 200.18688 #### [facility] [address] [place] [address] Nucleated RBC/100 WBC (Bld) [Ratio] 0.0 % Normal Less than 1 [facility] Comment on above: Order Comment: Campu s: M Performed By: #### L 200.24467 #### [facility] [address] [place] [address] Platelet mean volume (Bld) [Entitic vol] 9.6 fL Normal 9.4-12.4 [facility] Comment on above: Order Comment: Campu s: M Performed By: #### L 200.93461 #### [facility] [address] [place] [address] Platelets (Bld) [#/Vol] 199 K/CU MM Normal 150-450 [facility] Comment on above: Order Comment: Campu s: M Performed By: #### L 200.01857 #### [facility] [address] [place] [address] RBC (Bld) [#/Vol] 5.09 M/CU MM Normal 4.50-6.00 [facility] Comment on above: Order Comment: Campu s: M Performed By: #### L 200.36968 #### [facility] [address] [place] [address] WBC (Bld) [#/Vol] 5.1 K/CUMM Normal 4.5-11.0 [facility] Comment on above: Order Comment: Campu s: M Performed By: #### L 200.85223 #### [facility] [address] [place] [address] GFR ESTon 10-28-2019 IF AMER Greater than 60 Normal [facility] Comment on above: Order Comment: Campu s: M Performed By: #### L 500.75995, L500.13046 #### [facility] [address] [place] [address] IF non-AFR AMER Greater than 60 Normal [facility] Comment on above: Order Comment: Campu s: M Performed By: #### L 500.31126, L500.34431 #### [facility] [address] [place] [address] HP.IMS.CONon 10-28-2019 CONSULTATION-H&P Normal [facility] HP.IMS.[facility] Patient Name: ARYAN ROBERTS [address] [place] [address] Date of : [address] [place] [address] Unit Number: [id number] CONSULTATION-HandP Patient Status: REG [facility] Attending Doctor: sIsa Menard MD Service Date: 10/28/19805 See Addendum History of Present Illness Reason for Consult Epiploic appendagitis History of Present Illness Patient is a pleasant 54-year-old male who had some bright red blood per rectum last summer in [place] and had a CT scan in June [...] as Reported by ARTIE ERICKSON on 10/24/19 152 Last Action: Reviewed on 10/28/19722 by MARILYNN [...] as Reported by ARTIE ERICKSON on 10/24/19 152 Last Action: Reviewed on 10/28/19722 by MARILYNN [...] MARILYNN MONTGOMERY Omeprazole (PrilOSEC cap) 40 MG CAPSULE. 40 MG PO QDAY, Ref 0 (Reported) [...] Aryan Deleon MD Verified/Reviewed by 10/28/19 0842 [facility] OR.Trupti 10-28-2019 Operative Report [facility] OR.OPRPT [facility] Patient Name: ARYAN ROBERTS [address] [employer] [address] Date of : [address] [place] [address] Unit Number: [id number] Operative Report Patient Status: REG [facility] Attending Doctor: Issa Menard MD Service Date: [...] to discharge home Anesthesia: [General Endo Zachariah/danika] digital assistant: Fetty Estimated Blood Loss: [20 cc] IV [...] Bilateral ureteral lighted catheters/stents placed by [Dr. Pancho] urology. The stents were removed at the end of the case, the Todd was left in place. The Todd was removed prior to discharge home. The patient gives me permission to talk to [significant other (Suzie [phone] whom I called at the end of [...] any significant abnormalities. Under direct vision a fhyizi-je-zwgcp 0 PDS was placed in the right [...] Issa Menard MD Verified/Reviewed by 10/28/19 1709 [facility] Operative Report [facility] OR.OPRPT [facility] Patient Name: ARYAN ROBERTS [employer] [address] Date of : [address] [place], [place] [address] Unit Number: [id number] Operative Report Patient Status: REG [facility] Attending Doctor: Issa Menard MD Service Date: [...] The patient had the secured a 20 Divehi coud catheter was placed and there was [...] Aryan Deleon MD Verified/Reviewed by 10/28/19 0845 [facility] SURGon 10-27-2019 SURG -------- -------- Patient: ARYAN ROBERTS S -------- SPECIMEN: [id number] Collection Date: 10/27/19 Received: 10/27/19 Status: LUBA Yu DrDestiny: Issa Menard MD Ph# Othr. Dr.: Cosme [...] and/or minor grammatical errors may exist. -------- [facility] NAME: ARYAN ROBERTS Pathology and Laboratory Medicine UNIT#: [id number] LOC: [facility] Draw In Hand: Jemma Doherty M.D. [id number] ROOM/BED: [facility] : 67 AGE/SEX: 54/M ORD.Issa Wolfe MD END OF REPORT Normal [facility] [place] CT ABD/PELV W [facility]IV CONT [facility] 10-17-2019 CT ABD/PELV W ORALANDIV CONTRAST CT ABD/PELV W ORAL&IV CONTRAST Ordering Physician: Issa Menard MD 10/17/2019 2:[address] ABDOMEN AND PELVIS WITH CONTRAST Clinical Statement: Abdominal pain, rectal bleeding, patient indicates left lower quadrant and right flank pain Comparison: CT abdomen and pelvis June 08, [facility] FINDINGS: Following the uneventful administration of 100 [...] RICO M.D. Signed By: CLAUDIA RICO M.D. [facility] MRI LUMBAR SPINE WO IVCONon 08-13-2017 MRI [...] and bilateral neural foramina.IMPRESSION: Unremarkable lumbar spine MRI.Grief Counselor: NIKOS Transcribe Date/Time: Aug 13 2017 11:40ADictated by : NURYS JACK MDThisera examination was interpreted and the report reviewed and electronically signed by: NURYS JACK MD on Aug 13 2017 11:42AM [id number] Normal [facility] PROGRESSon 08-13-2017 PROGRESS HNO ID: [id number] thor: Jennyfer Ku (Rt): (none)Author Type: TechnicianType: Progress NotesFiled: 08/13/2017 11:53 AMNote Text: Radiology Service Progress NotePATIENT NAME: Aryan RobertsMRN: [id number] OF SERVICE: August 13, 2017TIME: 11:53 AMPATIENT IDENTITY VERIFICATION COMPLETED USING TWO (2) METHODS: Patientconfirmed name verbally and Date of .PATIENT GENDER DATA: MalePATIENT RELEVANT IMPLANT DATA REVIEWED: Not ApplicableRADIOLOGY DEPARTMENT: General X-ray: Exam(s) Completed: Spine X-Ray(s):Thoracic and Lumbar AP / LAT / L5-S1 / FLEX-EXTPERIPHERAL IV DATA: Not applicableSIGNED BY: RT [facility] 11:53 AM Normal [facility] PROGRESS HNO ID: [id number] thor: Lucy Marks RtService: (none)Author Type: (none)Type: Progress NotesFiled: 08/13/2017 11:36 AMNote Text: Radiology Service Progress NotePATIENT NAME: Aryan RobertsMRN: [id number] OF SERVICE: August 13, 2017TIME: 11:36 AMPATIENT IDENTITY VERIFICATION COMPLETED USING TWO (2) METHODS: Patientconfirmed name verbally and Date of .PATIENT GENDER DATA: MalePATIENT RELEVANT IMPLANT DATA REVIEWED: YesRADIOLOGY DEPARTMENT: MR; Exam(s) Completed: Spine: Lumbar spinePERIPHERAL IV DATA: Not applicableSIGNED BY: Lucy Marks RtMarch 2017 11:36 AM Normal [facility] XR LUMBAR 4V AP/LAT/ FLEX/EX Ton 08-13-2017 [...] SPINE. DEGENERATIVE FACET DISEASE IN THE LUMBAR SPINE.Grief Counselor: NIKOS Transcribe Date/Time: Aug 13 2017 1:18PDictated by : JEAN LEROY MDThis examination was interpreted and the report reviewed and electronically signed by: JEAN LEROY MD on Aug 13 2017 1:21PM [id number] Normal [facility] XR THORACIC 3V AP/LAT/SWIMME RSon 08-13-2017 XR [...] SPINE. DEGENERATIVE FACET DISEASE IN THE LUMBAR SPINE.Grief Counselor: PSCB Transcribe Date/Time: Aug 13 2017 1:18PDictated by : JEAN LEROY MDThis examination was interpreted and the report reviewed and electronically signed by: JEAN LEROY MD on Aug 13 2017 1:21PM [id number] Normal [facility] CNOVon 08-05-2017 CNOV Office Visit (SPNMMN) ----ARYAN ROBERTS ([id number]) 1965 MDate Time Provider Department08/05/17 9:00 AM MAEVE MEZA SPNMMN During your visit today, we recorded the following information about you: Pulse Respiration Blood pressure Weight 65/minute 18/minute 125/83 96.6 kg Height 1.702 Alanarohan Orin Lipscomb 08/05/2017 8:52 AM SignedAryan Roberts is a [...] visit? No.Frannie Meza MD 08/07/2017 10:31 AM SignedLICKING [facility] SPINE CENTERDakim Roberts is a 52 [...] s/p cardiac stent placement in 06/2016 and . he is following withcardiology. 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 limited ROM allie shoulder and allie hip pain. Affectdemonstrated is [...] spent counseling and/or coordinating care for thepatient. Dadc-ii-ouby time was 40 minutes.Maeve Meza, [facility]:Aryan Nina MD[address] [place] [address]Ghjup: [phone]: [phone] Provider: AIDAN EDMONDSON [[id number]]Allergies As of Date: 08/05/2017 Noted Allergy ReactionVICODIN (HYDROCODONE-ACETAMINOPHE* 9 - ItchingDate Reviewed: 08/05/2017Reviewed by: Frannie Sr Ma - Fully AssessedReason for Visit: New Patient [172]Primary Visit Diagnosis:Lumbar spondylosis [M47.816] Other Visit Diagnoses:Sciatica of right side [M54.31] DDD (degenerative disc disease), lumbar [M51.36] Arthralgia, unspecified joint [M25.50]Order(s):XR LUMBAR MOTION 4V AP/LAT/ FLEX/EXT [9028197] Order #: [id number] FUTURE XR THORACIC GENERAL 3V AP/LAT/SWIMMERS [[id number]] Order #: [id number] FUTURE MRI LUMBAR SPINE WO IVCON [[id number]] Order #: [id number] FUTUREPrescriptions as of 08/05/2017 Sig: ADALIMUMAB 40 [...] arteritis [I00] INVALID FOR*07/22/2017Visit Notes:>> Frannie Sr Bobbi ThuAug 05, 2017 8:48 AM Status: Tammy Roberts is a 52 year old male [...] there outside records for this visit? No.Frannie Orin MaDisposition: Return in about 2 months (around 10/03/2017).Follow-up and Disposition History RecordedEncounter Number: [id number] Status:Closed by MAEVE MEZA MD on 08/07/17 Normal [facility] PROGRESSon 08-05-2017 PROGRESS HNO ID: [id number] thor: Maeve MezaService: (none)Author Type: PhysicianType: Progress NotesFiled: 08/07/2017 10:31 AMNote Text:[facility] SPINE CENTERAryan Roberts is a 52 year old male [...] thoracic pain. chronic pain several years. says elana to sleep in position. s/p cardiac stent placement in 06/2016 [id number]. he is following with cardiology. roberta Wolf [...] Date- CAD (coronary artery disease)- HTN (hypertension)- ME (myocardial infarction) (HCC)The patient's surgical history was [...] spent counseling and/or coordinating carefor the patient. Qerk-wr-mbrz time was 40 minutes.Maeve Meza, [facility]:Aryan Nina MD[address] [place] [address]Nczks: [phone]: [phone] Normal [facility] CNCOon 07-21-2017 CNCO Letter Kosta dee D.O.Department of Rheumatic and Immunologic Disease / [id number] [place], [place], [address]Rbaqrk: [phone]: [phone]: [phone] 2017[address]ak[address] [place], [place] [address]JUY: 1965MRN: [id number] David:You will need to have blood work [...] ask to have results faxed to the [facility].Sincerely,Aidan Debo D.O.(Electronically Signed to [employer]) Normal [facility] C-Reactive Proteinon 018 C reactive protein (CRP) 0.3 mg/dL Normal <0.9 [facility] Comment on above: Performed By: #### C BCDIF, WSR, CMP, CRP ####[place] [address] [address] [phone] CBC and Differentialon 07-10 Abs Baso 0.03 k/uL Normal <0.11 [facility] Comment on above: Performed By: #### C BCDIF, WSR, CMP, CRP ####[place] [address] [address] [phone] Abs Franklin 0.41 k/uL Normal <0.87 [facility] Comment on above: Performed By: #### C BCDIF, WSR, CMP, CRP ####[place] [address] [address] [phone] Abs Neut 3.91 k/uL Normal 1.45-7.50 [facility] Comment on above: Performed By: #### C BCDIF, WSR, CMP, CRP ####[place] [address] [address] [phone] Basophils/100 WBC Auto (Bld) 0.6 % Normal [facility] Comment on above: Performed By: #### C BCDIF, WSR, CMP, CRP ####[place] [address] [place] [phone] DTYPE Auto Diff Normal [facility] Comment on above: Performed By: #### C BCDIF, WSR, CMP, CRP ####[place] [address] [address] [phone] Eosinophils 0.07 10*3/uL Normal <0.46 [facility] Comment on above: Performed By: #### C BCDIF, WSR, CMP, CRP ####[place] [address] [place] [address] [place] [phone] Eosinophils/100 leukocytes 1.3 % Normal [facility] Comment on above: Performed By: #### C BCDIF, WSR, CMP, CRP ####[place] [address] [place] [address] [place] [phone] Erythrocyte distribution width Auto Ratio (RBC) 13.0 % Normal 11.5-15.0 [facility] Comment on above: Performed By: #### C BCDIF, WSR, CMP, CRP ####[place] [address] [place] [address] [place] [phone] Erythrocytes (RBC) 5.51 10*6/uL Normal 4.20-6.00 [facility] Comment on above: Performed By: #### C BCDIF, WSR, CMP, CRP ####[place] [address] [place] [address] [place] [phone] Erythrocytes (RBC) 0.0 /100 WBC Normal 0 [facility] Comment on above: Performed By: #### C BCDIF, WSR, CMP, CRP ####[place] [address] [place] [address] [place] [phone] Erythrocytes (RBC) 10*6/uL Normal <0.01 [facility] Comment on above: Performed By: #### C BCDIF, WSR, CMP, CRP ####[place] [address] [place] [address] [place] [phone] Hematocrit (HCT) 50.6 % Normal 39.0-51.0 [facility] Comment on above: Performed By: #### C BCDIF, WSR, CMP, CRP ####[place] [address] [place] [address] [place] [phone] Hemoglobin mass conc (Bld) 16.8 g/dL Normal 13.0-17.0 [facility] Comment on above: Performed By: #### C BCDIF, WSR, CMP, CRP ####[place] [address] [place] [address] [place] [phone] Lymphocytes 0.97 10*3/uL Low 1.00-4.00 [facility] Comment on above: Performed By: #### C BCDIF, WSR, CMP, CRP ####[place] [address] [place] [address] [place] [phone] Lymphocytes/100 leukocytes 18.0 % Normal [facility] Comment on above: Performed By: #### C BCDIF, WSR, CMP, CRP ####[place] [address] [place] [address] [phone] MCH 30.5 pG Normal 26.0-34.0 [facility] Comment on above: Performed By: #### C BCDIF, WSR, CMP, CRP ####[place] [address] [place] [address] [place] [phone] MCHC mass conc (RBC) 33.2 g/dL Normal 30.5-36.0 [facility] Comment on above: Performed By: #### C BCDIF, WSR, CMP, CRP ####[place] [address] [place] [address] [place] [phone] MCV 91.8 fL Normal 80.0-100.0 [facility] Comment on above: Performed By: #### C BCDIF, WSR, CMP, CRP ####[place] [address] [place] [address] [place] [phone] Monocytes/100 leukocytes 7.6 % Normal [facility] Comment on above: Performed By: #### C BCDIF, WSR, CMP, CRP ####[place] [address] [place] [address] [phone] Neutrophils/100 WBC Auto (Bld) 72.5 % Normal [facility] Comment on above: Performed By: #### C BCDIF, WSR, CMP, CRP ####[address] [phone] Platelet mean volume (PMV) 10.0 fL Normal 9.0-12.7 [facility] Comment on above: Performed By: #### C BCDIF, WSR, CMP, CRP ####[address] [phone] Platelets 209 10*3/uL Normal 150-400 [facility] Comment on above: Performed By: #### C BCDIF, WSR, CMP, CRP ####[address] [phone] WBC (Leukocytes) 5.40 10*3/uL Normal 3.70-11.00 [facility] Comment on above: Performed By: #### C BCDIF, WSR, CMP, CRP ####[address] [phone] Comp Metabolic Panelon 07-10 Alanine aminotransferase (ALT) 27 U/L Normal 10-54 [facility] Comment on above: Performed By: #### C BCDIF, WSR, CMP, CRP ####[address] [phone] Albumin 4.7 g/dL Normal 3.9-4.9 [facility] Comment on above: Performed By: #### C BCDIF, WSR, CMP, CRP ####[address] [phone] Alkaline phosphatase (ALP) 68 U/L Normal 36-108 [facility] Comment on above: Performed By: #### C BCDIF, WSR, CMP, CRP ####[address] [phone] Anion gap 13 mmol/L Normal 9-18 [facility] Comment on above: Performed By: #### C BCDIF, WSR, CMP, CRP ####[address]ille [phone] Aspartate aminotransferase (AST) 17 U/L Normal 14-40 [facility] Comment on above: Performed By: #### C BCDIF, WSR, CMP, CRP ####[place] [address] [place] [address] [place] [phone] Bilirubin (total) 0.5 mg/dL Normal 0.2-1.3 [facility] Comment on above: Performed By: #### C BCDIF, WSR, CMP, CRP ####[place] [address] [place] [address] [place] [phone] Calcium 9.8 mg/dL Normal 8.5-10.2 [facility] Comment on above: Performed By: #### C BCDIF, WSR, CMP, CRP ####[place] [address] [place] [address] [place] [phone] Chloride 105 mmol/L Normal 97-105 [facility] Comment on above: Performed By: #### C BCDIF, WSR, CMP, CRP ####[place] [address] [place] [place] [phone] CO2 22 mmol/L Normal 22-30 [facility] Comment on above: Performed By: #### C BCDIF, WSR, CMP, CRP ####[place] [address] [place] [address] [place] [phone] Creatinine 1.06 mg/dL Normal 0.73-1.22 [facility] Comment on above: Performed By: #### C BCDIF, WSR, CMP, CRP ####[place] [address] [place] [address] [place] [phone] eGFR (non-black) mL/min/{1.73_m2} Normal [facility] Comment on above: Performed By: #### C BCDIF, WSR, CMP, CRP ####[place] [address] [place], [place] [phone] Result Comment: eGFR (Estimated GFR) Units of [...] Glucose mass conc 95 mg/dL Normal 74-99 [facility] Comment on above: Result Comment: The [place] Diabetes [employer] (ADA) provides guidance for cutoff [...] Standards of Medical Care in Diabetes 2016, [place] [employer]. Diabetes Care. 2016.39(Suppl 1). Performed By: #### C BCDIF, WSR, CMP, CRP ####[facility] [place], [place] [phone] Potassium molar conc 4.3 mmol/L Normal 3.7-5.1 [facility] Comment on above: Performed By: #### C BCDIF, WSR, CMP, CRP ####[facility] [place], [place] [phone] Protein 8.0 g/dL Normal 6.3-8.0 [facility] Comment on above: Performed By: #### C BCDIF, WSR, CMP, CRP ####[place] [phone] [place], [place] [phone] Sodium 140 mmol/L Normal 136-144 [facility] Comment on above: Performed By: #### C BCDIF, WSR, CMP, CRP ####[facility] [place], [place] [phone] Urea nitrogen 12 mg/dL Normal 9-24 [facility] Comment on above: Performed By: #### C BCDIF, WSR, CMP, CRP ####[facility] [address] [place], [place] [phone] PROGRESSon 07-10-2017 PROGRESS HNO ID: [id number] thor: Lisa Schroeder (Man) Vanessa Devlin: (none)Author Type: Nurse PractitionerType: Progress [...] OF INSTRUCTION: Individual instructionWritten instruction - handoutsVerbal instructionDemonstration-Perrin ds on LearningPATIENT / FAMILY RESPONSE: Verbalizes understanding [...] left abdomen by pt, observed.Electronically Signed By: MAN [facility] PROGRESS HNO ID: [id number] thor: Aidan Barr: (none)Author Type: PhysicianType: Progress NotesFiled: 07/10/2017 1:22 PMNote Text:?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 Knees: No effusion, no tenderness, [...] outlined in orders.Aidan Edmondson D.O.Rheumatology Staff Normal [facility] Sed Rate Westergrenon 2017 Sed Rate Westergren 5 mm/hr Normal 0-15 [facility] Comment on above: Performed By: #### C BCDIF, WSR, CMP, CRP ####[facility] [place], [place] [phone] C-Reactive Proteinon 017 C reactive protein (CRP) 0.4 mg/dL Normal <0.9 [facility] Comment on above: Performed By: #### C BCDIF, WSR, CRP, RF, URIC, CMP, HREMOP, INFTBG, CCP ####[place] [address] [place] [address] [place] [phone] CBC and Differentialon 05-05 Abs Baso 0.04 k/uL Normal <0.11 [facility] Comment on above: Performed By: #### C BCDIF, WSR, CRP, RF, URIC, CMP, HREMOP, INFTBG, CCP ####[place] [address] [place] [address] [place] [phone] Abs Franklin 0.54 k/uL Normal <0.87 [facility] Comment on above: Performed By: #### C BCDIF, WSR, CRP, RF, URIC, CMP, HREMOP, INFTBG, CCP ####[place] [address] [place] [address] [place] [phone] Abs Neut 4.24 k/uL Normal 1.45-7.50 [facility] Comment on above: Performed By: #### C BCDIF, WSR, CRP, RF, URIC, CMP, HREMOP, INFTBG, CCP ####[place] [address] [place] [address] [place] [phone] Basophils/100 WBC Auto (Bld) 0.7 % Normal [facility] Comment on above: Performed By: #### C BCDIF, WSR, CRP, RF, URIC, CMP, HREMOP, INFTBG, CCP ####[place] [address] [place] [address] [place] [phone] DTYPE Auto Diff Normal [facility] Comment on above: Performed By: #### C BCDIF, WSR, CRP, RF, URIC, CMP, HREMOP, INFTBG, CCP ####[place] [address] [place] [address] [place] [phone] Eosinophils 0.10 10*3/uL Normal <0.46 [facility] Comment on above: Performed By: #### C BCDIF, WSR, CRP, RF, URIC, CMP, HREMOP, INFTBG, CCP ####[facility] [place] [address] [phone] Eosinophils/100 leukocytes 1.7 % Normal [facility] Comment on above: Performed By: #### C BCDIF, WSR, CRP, RF, URIC, CMP, HREMOP, INFTBG, CCP ####[place] [phone] [place] Ave[address] [phone] Erythrocyte distribution width Auto Ratio (RBC) 13.3 % Normal 11.5-15.0 [facility] Comment on above: Performed By: #### C BCDIF, WSR, CRP, RF, URIC, CMP, HREMOP, INFTBG, CCP ####[place] [address] [address] [place] [phone] Erythrocytes (RBC) 10*6/uL Normal <0.01 [facility] Comment on above: Performed By: #### C BCDIF, WSR, CRP, RF, URIC, CMP, HREMOP, INFTBG, CCP ####[place] [address] [address] [place] [phone] Erythrocytes (RBC) 0.0 /100 WBC Normal 0 [facility] Comment on above: Performed By: #### C BCDIF, WSR, CRP, RF, URIC, CMP, HREMOP, INFTBG, CCP ####[place] [phone] [place] AveClevelSarah [place] [phone] Erythrocytes (RBC) 5.19 10*6/uL Normal 4.20-6.00 [facility] Comment on above: Performed By: #### C BCDIF, WSR, CRP, RF, URIC, CMP, HREMOP, INFTBG, CCP ####[facility] [place] [phone] Hematocrit (HCT) 48.7 % Normal 39.0-51.0 [facility] Comment on above: Performed By: #### C BCDIF, WSR, CRP, RF, URIC, CMP, HREMOP, INFTBG, CCP ####[place] [phone] Hemoglobin mass conc (Bld) 16.5 g/dL Normal 13.0-17.0 [facility] Comment on above: Performed By: #### C BCDIF, WSR, CRP, RF, URIC, CMP, HREMOP, INFTBG, CCP ####[place] [phone] Lymphocytes 1.00 10*3/uL Normal 1.00-4.00 [facility] Comment on above: Performed By: #### C BCDIF, WSR, CRP, RF, URIC, CMP, HREMOP, INFTBG, CCP ####[place] [phone] Lymphocytes/100 leukocytes 16.9 % Normal [facility] Comment on above: Performed By: #### C BCDIF, WSR, CRP, RF, URIC, CMP, HREMOP, INFTBG, CCP ####[place] [phone] MCH 31.8 pG Normal 26.0-34.0 [facility] Comment on above: Performed By: #### C BCDIF, WSR, CRP, RF, URIC, CMP, HREMOP, INFTBG, CCP ####[place] [phone] MCHC mass conc (RBC) 33.9 g/dL Normal 30.5-36.0 [facility] Comment on above: Performed By: #### C BCDIF, WSR, CRP, RF, URIC, CMP, HREMOP, INFTBG, CCP ####[place] [address] [address], [place] [phone] MCV 93.8 fL Normal 80.0-100.0 [facility] Comment on above: Performed By: #### C BCDIF, WSR, CRP, RF, URIC, CMP, HREMOP, INFTBG, CCP ####[address] [place] [phone] Monocytes/100 leukocytes 9.1 % Normal [facility] Comment on above: Performed By: #### C BCDIF, WSR, CRP, RF, URIC, CMP, HREMOP, INFTBG, CCP ####[address] [place], [place] [phone] Neutrophils/100 WBC Auto (Bld) 71.6 % Normal [facility] Comment on above: Performed By: #### C BCDIF, WSR, CRP, RF, URIC, CMP, HREMOP, INFTBG, CCP ####[address] AvC[place], [place] [phone] Platelet mean volume (PMV) 10.2 fL Normal 9.0-12.7 [facility] Comment on above: Performed By: #### C BCDIF, WSR, CRP, RF, URIC, CMP, HREMOP, INFTBG, CCP ####[address] [phone] Platelets 209 10*3/uL Normal 150-400 [facility] Comment on above: Performed By: #### C BCDIF, WSR, CRP, RF, URIC, CMP, HREMOP, INFTBG, CCP ####[address], [place] [phone] WBC (Leukocytes) 5.93 10*3/uL Normal 3.70-11.00 [facility] Comment on above: Performed By: #### C BCDIF, WSR, CRP, RF, URIC, CMP, HREMOP, INFTBG, CCP ####[facility] [place], [place] [phone] CCP Antibody, IgGon 05-05-20 17 CCP Antibody, IgG <15 Normal <20 [facility] Comment on above: Result Comment: < 20 units: Tbdahopf28-10 units: Weak Cyazfgpn92-67 units: Moderate Positive> 60 units: Strong Positive Performed By: #### C BCDIF, WSR, CRP, RF, URIC, CMP, HREMOP, INFTBG, CCP ####[facility] [address] [place], [place] [phone] CNOVon 05-05-2017 CNOV Office Visit (RHEUMN) ----ARMIDAARYAN ([id number]) 1965 MDate Time Provider Sqmfbvfxax84/28/17 12:40 PM AIDAN EDMONDSON During your visit today, we recorded the following information about you: Temperature Pulse Blood pressure Weight 98.2 degrees 80/minute 141/85 98.2 kg Height 1.698 Alicia Edmondson DO 05/07/2017 2:12 PM Signed?[facility] ORTHOP[facility]EDIC ANDamp; RHEUMATOLOGIC INSTITUTEDEPARTMENT OF RHEUMATIC [...] rotator cuff.In Jun 2016 he sustained an ME and underwent PCI. He was stented again in November2016.He was evaluated by Rheumatology at [facility] and was diagnosed withseronegative RA. He has [...] Date- CAD (coronary artery disease)- HTN (hypertension)- ME (myocardial infarction)PSHx:PAST SURGICAL HISTORYProcedure Laterality Date- ARTHROSCOPY [...] kg (216 lb 6.4 oz) BMI 34.06 kg/y6Anvcibp: Looks well, NAD, A ANDamp; Ox3.HEENT: EOMs [...] palpation.Investigations:Lab s:Component Latest Ref Rng ANDamp; Units 11/28/2017WBC 3.70 - 11.00 k/uL 5.93RBC 4.20 - [...] 1.00 - 4.00 k/uL 1.00Mono% % 9.1Abs Franklin ANDlt;0.87 k/uL 0.54Eosin% % 1.7Abs Eosin ANDlt;0.46 [...] patient.Laboratory tests and Radiology: As outlined in orders.Vanessa Cantu DO 05/05/2017 1:14 PM Signed1. please have [...] [M54.41, G89.29]Order(s):URIC ACID BLOOD [SQURIC] Order #: [id number] FUTURE CBC + DIFF [SQCBCDIF] Order #: [id number] FUTURE COMP METABOLIC PANEL [SQCMP] Order #: [id number] FUTURE RHEUMATOID FACTOR BL [SQRF] Order #: [id number] FUTURE CCP ANTIBODY IGG [SQCCP] Order #: [id number] FUTURE XR HAND GENERAL 3V PA/LAT/OBL LT [6980054] Order #: [id number] FUTURE XR HAND GENERAL 3V PA/LAT/OBL RT [6368536] Order #: [id number] FUTURE CONSULT TO SPINE CENTER [19990907] Order #: [id number]: 1 C-REACTIVE PROTEIN (CRP) [SQCRP] Order #: [id number] FUTURE SED RATE WESTERGREN [SQWSR] Order #: [id number] FUTURE HEP REMOTE PANEL BL [SQHREMOP] Order #: [id number] FUTURE BLOOD TB SCREEN [SQINFTBG] Order #: [id number] FUTURE diclofenac sodium (VOLTAREN) 1 % topical [...] ASPIRIN 81 MG TABLET,DELAYED RELEASE >> Johny Reaves MA 05/05/2017 1:32 PM >> JOHNY REAVES MA May 05, 2017 1:32 PM Received from: External Pharmacy ATORVASTATIN 80 MG TABLET >> Johny Reaves MA 05/05/2017 1:32 PM >> JOHNY REAVES MA May 05, 2017 1:32 PM Received from: External Pharmacy LOSARTAN 25 MG TABLET >> Johny Reaves MA 05/05/2017 1:32 PM >> JOHNY REAVES MA May 05, 2017 1:32 PM Received from: External Pharmacy OMEPRAZOLE 40 MG CAPSULE,DELAYED RELEASE >> Johny Reaves MA 05/05/2017 1:32 PM >> JOHNY REAVES MA May 05, 2017 1:32 PM Received from: External Pharmacy LEFLUNOMIDE 10 MG TABLET >> Johny Jelly MA 05/05/2017 1:32 PM >> JELLYJOHNY KOO MA May 05, 2017 1:32 PM Received from: External Pharmacy LEUCOVORIN CALCIUM 25 MG TABLET >> Johny Reaves MA 05/05/2017 1:32 PM >> JOHNY REAVES MA May 05, 2017 1:32 PM Received [...] End DICLOFENAC 1 % TOPICAL GEL 1 * 3 05/05/2017 Route: TOPICAL Sig: Apply 4 g to affected area four times daily. Status:Closed by AIDAN EDMONDSON on 05/07/17 Normal [facility] Comp Metabolic Panelon 05-05 Alanine aminotransferase (ALT) 35 U/L Normal 10-54 [facility] Comment on above: Performed By: #### C BCDIF, WSR, CRP, RF, URIC, CMP, HREMOP, INFTBG, CCP ####[facility] [address] [place] AveC[place], [place] [phone] Albumin 4.5 g/dL Normal 3.9-4.9 [facility] Comment on above: Performed By: #### C BCDIF, WSR, CRP, RF, URIC, CMP, HREMOP, INFTBG, CCP ####[facility] [address] [place], [place] [phone] Alkaline phosphatase (ALP) 68 U/L Normal 36-108 [facility] Comment on above: Performed By: #### C BCDIF, WSR, CRP, RF, URIC, CMP, HREMOP, INFTBG, CCP ####[place] [address] [address] [place] [phone] Anion gap 14 mmol/L Normal 9-18 [facility] Comment on above: Performed By: #### C BCDIF, WSR, CRP, RF, URIC, CMP, HREMOP, INFTBG, CCP ####[place] [address] [address] [place] [phone] Aspartate aminotransferase (AST) 23 U/L Normal 14-40 [facility] Comment on above: Performed By: #### C BCDIF, WSR, CRP, RF, URIC, CMP, HREMOP, INFTBG, CCP ####[place] [address] [address] [place] [phone] Bilirubin (total) 0.2 mg/dL Normal 0.2-1.3 [facility] Comment on above: Performed By: #### C BCDIF, WSR, CRP, RF, URIC, CMP, HREMOP, INFTBG, CCP ####[place] [address] [address] [place] [phone] Calcium 9.6 mg/dL Normal 8.5-10.2 [facility] Comment on above: Performed By: #### C BCDIF, WSR, CRP, RF, URIC, CMP, HREMOP, INFTBG, CCP ####[place] [address] [address] [place] [phone] Chloride 101 mmol/L Normal 97-105 [facility] Comment on above: Performed By: #### C BCDIF, WSR, CRP, RF, URIC, CMP, HREMOP, INFTBG, CCP ####[place] [address] [address] [place] [phone] CO2 25 mmol/L Normal 22-30 [facility] Comment on above: Performed By: #### C BCDIF, WSR, CRP, RF, URIC, CMP, HREMOP, INFTBG, CCP ####[facility], [place] [phone] Creatinine 1.27 mg/dL High 0.73-1.22 [facility] Comment on above: Performed By: #### C BCDIF, WSR, CRP, RF, URIC, CMP, HREMOP, INFTBG, CCP ####[place] [address] [address] [place] [phone] eGFR (non-black) mL/min/{1.73_m2} Normal [facility] Comment on above: Performed By: #### C BCDIF, WSR, CRP, RF, URIC, CMP, HREMOP, INFTBG, CCP ####[place] [address] [address] [place] [phone] eGFR (non-black) 60 . Normal [facility] Comment on above: Result Comment: eGFR [...] CRP, RF, URIC, CMP, HREMOP, INFTBG, CCP ####[place] [address] [address], [place] [phone] Glucose mass conc 112 mg/dL High 74-99 [facility] Comment on above: Result Comment: The [place] Diabetes [employer] (ADA) provides guidance for cutoff [...] Standards of Medical Care in Diabetes 2016, [place] [employer]. Diabetes Care. 2016.39(Suppl 1). Performed By: #### C BCDIF, WSR, CRP, RF, URIC, CMP, HREMOP, INFTBG, CCP ####[place] [phone] Potassium molar conc 4.2 mmol/L Normal 3.7-5.1 [facility] Comment on above: Performed By: #### C BCDIF, WSR, CRP, RF, URIC, CMP, HREMOP, INFTBG, CCP ####[place] [phone] Protein 7.4 g/dL Normal 6.3-8.0 [facility] Comment on above: Performed By: #### C BCDIF, WSR, CRP, RF, URIC, CMP, HREMOP, INFTBG, CCP ####[place] [phone] Sodium 140 mmol/L Normal 136-144 [facility] Comment on above: Performed By: #### C BCDIF, WSR, CRP, RF, URIC, CMP, HREMOP, INFTBG, CCP ####[place] [phone] Urea nitrogen 16 mg/dL Normal 9-24 [facility] Comment on above: Performed By: #### C BCDIF, WSR, CRP, RF, URIC, CMP, HREMOP, INFTBG, CCP ####[place] [phone] [place], [place] [phone] Hepatitis Remote Panelon BSA (Body Surface Area) Negative Normal Negative [facility] Comment on above: Performed By: #### C BCDIF, WSR, CRP, RF, URIC, CMP, HREMOP, INFTBG, CCP ####[address] [phone] Hep B Core Ab,Total Negative Normal Negative [facility] Comment on above: Performed By: #### C BCDIF, WSR, CRP, RF, URIC, CMP, HREMOP, INFTBG, CCP ####[place] [address] [place], [place] [phone] Hepatitis C Ab IA Negative Normal Negative [facility] Comment on above: Performed By: #### C BCDIF, WSR, CRP, RF, URIC, CMP, HREMOP, INFTBG, CCP ####[place] [address] [place], [place] [phone] HepB Surface Ab,Qual Negative Normal Negative [facility] Comment on above: Result Comment: NEGA TIVE Performed By: #### C BCDIF, WSR, CRP, RF, URIC, CMP, HREMOP, INFTBG, CCP ####[address] [phone] PROGRESSon 05-05-2017 PROGRESS HNO ID: [id number] thor: Beatriz () Raj AngelService: RadiologyAuthor Type: TechnicianType: Progress NotesFiled: 05/05/2017 1:56 PMNote Text: Radiology Service Progress NotePATIENT NAME: Aryan RobertsMRN: [id number] OF SERVICE: May 05, 2017TIME: 1:56 PMPATIENT IDENTITY VERIFICATION COMPLETED USING TWO (2) METHODS: Patientconfirmed name verbally and Date of .PATIENT GENDER DATA: MalePATIENT RELEVANT IMPLANT DATA REVIEWED: YesRADIOLOGY DEPARTMENT: General X-ray: Exam(s) Completed: Upper ExtremityX-Ray(s): Hand, Bilateral :PERIPHERAL IV DATA: Not applicableSIGNED BY: Beatriz Angel, RTNovember 2016 1:56 PM Normal [facility] PROGRESS HNO ID: [id number] thor: Aidan Schroeder Moisese: (none)Author Type: PhysicianType: Progress NotesFiled: 05/07/2017 2:12 PMNote Text:?[facility] AND RHEUMATOLOGIC INSTITUTEDEPARTMENT OF RHEUMATIC AND IMMUNOLOGIC DISEASESThis consult was requested by the doctor listed below for an opinionregarding the chief complaint listed below, and my final recommendationswill be communicated to the requesting health care provider by way of theshared medical record for internal providers or letter [...] rotator cuff.In Jun 2016 he sustained an ME and underwent PCI. He was stented again inJ2016.He was evaluated by Rheumatology at [facility] and was diagnosed withseronegative RA. He has [...] Date- CAD (coronary artery disease)- HTN (hypertension)- ME (myocardial infarction)PSHx:PAST SURGICAL HISTORYProcedure Laterality Date- ARTHROSCOPY [...] kg (216 lb 6.4 oz) BMI 34.06 kg/b0Lsdhnpw: Looks well, NAD, A AND Ox3.HEENT: EOMs [...] evidence of synovitis, there is pain on [id number] MTP palpation.Investigations:Lab s:Component Latest Ref Rng AND [...] 1.00 - 4.00 k/uL 1.00Mono% % 9.1Abs Franklin <0.87 k/uL 0.54Eosin% % 1.7Abs Eosin <0.46 [...] Radiology: As outlined in orders.Aidan Edmondson, Normal [facility] Rheumatoid Factoron 05-05-20 17 Rheumatoid Factor <10 Normal <16 [facility] Comment on above: Performed By: #### C BCDIF, WSR, CRP, RF, URIC, CMP, HREMOP, INFTBG, CCP ####[id number] [place] [address] [place] [id number] Sed Rate Westergrenon 2016 Sed Rate Westergren 5 mm/hr Normal 0-15 [facility] Comment on above: Performed By: #### C BCDIF, WSR, CRP, RF, URIC, CMP, HREMOP, INFTBG, CCP ####[place] [address] [place] [address] [place] [phone] TB by QuantiFERONon 05-05-20 17 Interpretation No evidence of curre nt or previous infection with Mycobacterium tuberculosis. Normal [facility] Comment on above: Performed By: #### C BCDIF, WSR, CRP, RF, URIC, CMP, HREMOP, INFTBG, CCP ####[place] [address] [place] [phone] Mitogen Response 7.88 IU/mL Normal >0.49 [facility] Comment on above: Performed By: #### C BCDIF, WSR, CRP, RF, URIC, CMP, HREMOP, INFTBG, CCP ####[place] [id number] [place] [phone] TB Antigen Response 0.05 IU/mL Normal <0.35 [facility] Comment on above: Performed By: #### C BCDIF, WSR, CRP, RF, URIC, CMP, HREMOP, INFTBG, CCP ####[place] [id number] [place] Ave[place] [phone] TB Result Negative Normal Negative [facility] Comment on above: Performed By: #### C BCDIF, WSR, CRP, RF, URIC, CMP, HREMOP, INFTBG, CCP ####[facility] [place], [place] [phone] Uric Acidon 05-05-2017 Urate 7.6 mg/dL Normal 4.0-8.1 [facility] Comment on above: Performed By: #### C BCDIF, WSR, CRP, RF, URIC, CMP, HREMOP, INFTBG, CCP ####[facility] [address] [place], [place] [phone] XR HAND 3V PA/LAT/OBL LTon 1 07-05-2016 [...] the right fifth metacarpalNo evidence of inflammatory arthropathy.Grief Counselor : NIKOS Transcribe Date/Time: May 05 2017 2:02PDictated by : Scott BEAULIEU examination was interpreted and the report reviewed and electronically signed by: JONATHAN KO MD on May 05 2017 3:02PM [id number] Normal [facility] XR HAND 3V PA/LAT/OBL RTon 1 07-05-2016 [...] the right fifth metacarpalNo evidence of inflammatory arthropathy.Grief Counselor : PSCB Transcribe Date/Time: May 05 2017 2:02PDictated by : Scott BEAULIEU examination was interpreted and the report reviewed and electronically signed by: JONATHAN KO MD on May 05 2017 3:02PM [id number] Normal [facility] Vital Signs Date Time Vital Sign Value Performing Clinician Facility 12-13-2024 12:01-0400 Body temperature 97.8 [degF] Dr. Cosme Berger MD Work Phone: [facility] 12-13-2024 12:01-0400 Diastolic blood pressure 87 mm[Hg] Dr. Cosme Berger MD Work Phone: [facility] 12-13-2024 12:01-0400 Heart rate 68 /min Dr. Cosme Berger MD Work Phone: [facility] 12-13-2024 12:01-0400 Respiratory rate 20 /min Dr. Cosme Berger MD Work Phone: 1(354)196-825988 [place] [address] 12-13-2024 12:01-0400 SaO2% (BldA) [Mass fraction] 94 % Dr. Cosme Berger MD Work Phone: 3(921)816-153288 [place] [address] 12-13-2024 12:01-0400 Systolic blood pressure 114 mm[Hg] Dr. Cosme Berger MD Work Phone: 4(218)964-761088 [place] [address] 12-13-2024 09:47-0400 Body height 170.[address] Cosme Berger MD Work Phone: 9(988)536-630588 [place] [address] 12-13-2024 09:47-0400 Body mass index (BMI) [Ratio] 35.8 kg/m2 Dr. Cosme Berger MD Work Phone: 6(591)301-733888 [place] [address] 12-13-2024 09:47-0400 Body weight 103.[address] Cosme Berger MD Work Phone: 8(070)441-515188 [place] [address] 11-30-2024 08:22-0400 Body height 170.[address] Cosme Berger MD Work Phone: 6(340)495-989088 [place] [address] 11-30-2024 08:22-0400 Body mass index (BMI) [Ratio] 36.2 kg/m2 Dr. Cosme Berger MD Work Phone: 5(047)255-186388 [place] [address] 11-30-2024 08:22-0400 Body temperature 97.2 [degF] Dr. Cosme Berger MD Work Phone: 8(740)111-848688 [place] [address] 11-30-2024 08:22-0400 Body weight 104.[address] Cosme Berger MD Work Phone: [facility] 11-30-2024 08:22-0400 Diastolic blood pressure 87 mm[Hg] Dr. Cosme Berger MD Work Phone: 0(770)960-298988 [place] [address] 11-30-2024 08:22-0400 Heart rate 92 /min Dr. Cosme Berger MD Work Phone: 9(432)072-213088 [place] [address] 11-30-2024 08:22-0400 Respiratory rate 18 /min Dr. Cosme Berger MD Work Phone: 6(835)716-618888 [place] [address] 11-30-2024 08:22-0400 SaO2% (BldA) [Mass fraction] 99 % Dr. Cosme Berger MD Work Phone: 1(673)294-352188 [place] [address] 11-30-2024 08:22-0400 Systolic blood pressure 134 mm[Hg] Dr. Cosme Berger MD Work Phone: 3(274)075-036988 [place] [address] 10-18-2024 11:02-0400 Body height 170.[address] Cosme Berger MD Work Phone: 5(473)253-252188 [place] [address] 10-18-2024 11:02-0400 Body mass index (BMI) [Ratio] 35.5 kg/m2 Dr. Cosme Berger MD Work Phone: 7(397)070-454388 [place] [address] 10-18-2024 11:02-0400 Body weight 102.[address] Cosme Berger MD Work Phone: 7(482)612-867488 [place] [address] 10-14-2024 05:54-0400 Body mass index (BMI) [Ratio] 35.4 kg/m2 Dr. Cosme Berger MD Work Phone: 4(235)116-976088 [place] [address] 10-14-2024 05:54-0400 Body weight 102.[address] Cosme Berger MD Work Phone: 5(863)635-284188 [place] [address] 10-14-2024 05:54-0400 Diastolic blood pressure 84 mm[Hg] Dr. Cosme Berger MD Work Phone: 5(419)334-565688 [place] [address] 10-14-2024 05:54-0400 Heart rate 73 /min Dr. Cosme Berger MD Work Phone: [facility] 10-14-2024 05:54-0400 Respiratory rate 18 /min Dr. Cosme Berger MD Work Phone: [facility] 10-14-2024 05:54-0400 SaO2% (BldA) [Mass fraction] 97 % Dr. Cosme Berger MD Work Phone: [facility] 10-14-2024 05:54-0400 Systolic blood pressure 139 mm[Hg] Dr. Cosme Berger MD Work Phone: 6(365)464-959588 [place] [address] 10-11-2024 11:47-0400 Body temperature 98 [degF] Dr. Cosme Berger MD Work Phone: 2(547)412-456888 [place] [address] 10-11-2024 11:47-0400 Diastolic blood pressure 70 mm[Hg] Dr. Cosme Berger MD Work Phone: 2(682)405-228588 [place] [address] 10-11-2024 11:47-0400 Heart rate 78 /min Dr. Cosme Berger MD Work Phone: 8(317)003-001888 [place] [address] 10-11-2024 11:47-0400 Respiratory rate 18 /min Dr. Cosme Berger MD Work Phone: [facility] 10-11-2024 11:47-0400 SaO2% (BldA) [Mass fraction] 99 % Dr. Cosme Berger MD Work Phone: [facility] 10-11-2024 11:47-0400 Systolic blood pressure 124 mm[Hg] Dr. Cosme Berger MD Work Phone: [facility] 10-11-2024 09:06-0400 Body mass index (BMI) [Ratio] 36.6 kg/m2 Dr. Cosme Berger MD Work Phone: [facility] 10-11-2024 09:06-0400 Body weight 106.[address] Cosme Berger MD Work Phone: [facility] 08-20-2022 08:10-0400 Diastolic Blood Pressure Non-Invasive 86 1 CONSTANTINO BERGMAN MD [facility] 08-20-2022 08:10-0400 Heart rate 66 /min CONSTANTINO BERGMAN MD [facility] 08-20-2022 08:10-0400 Respiratory rate 13 /min CONSTANTINO BERGMAN MD [facility] 08-20-2022 08:10-0400 Systolic Blood Pressure Non-Invasive 125 1 CONSTANTINO BERGMAN MD [facility] 08-20-2022 08:02-0400 Diastolic Blood Pressure Non-Invasive 71 1 CONSTANTINO BERGMAN MD [facility] 08-20-2022 08:02-0400 Heart rate 77 /min CONSTANTINO BERGMAN MD [facility] 08-20-2022 08:02-0400 Respiratory rate 10 /min CONSTANTINO BERGMAN MD [facility] 08-20-2022 08:02-0400 Systolic Blood Pressure Non-Invasive 120 1 CONSTANTINO BERGMAN MD [facility] 08-20-2022 07:44-0400 Diastolic Blood Pressure Non-Invasive 97 1 CONSTANTINO BERGMAN MD [facility] 08-20-2022 07:44-0400 Heart rate 73 /min CONSTANTINO BERGMAN MD [facility] 08-20-2022 07:44-0400 Respiratory rate 16 /min CONSTANTINO BERGMAN MD [facility] 08-20-2022 07:44-0400 Systolic Blood Pressure Non-Invasive 144 1 CONSTANTINO BERGMAN MD [facility] 08-20-2022 07:30-0400 Body height 170 cm CONSTANTINO BERGMAN MD [facility] 08-20-2022 07:30-0400 Body weight 99.6 kg CONSTANTINO BERGMAN MD [facility] 08-20-2022 07:30-0400 Body weight 34.46 kg/m2 CONSTANTINO BERGMAN MD [facility] 08-20-2022 07:30-0400 Heart rate 82 /min CONSTANTINO BERGMAN MD [facility] 11-19-2021 11:12-0400 Diastolic blood pressure 72 mm[Hg] Dr. Cosme Berger Work Phone: [facility] Work Phone: 11-19-2021 11:12-0400 Heart rate 80 /min Dr. Cosme Berger Work Phone: [facility] Work Phone: 11-19-2021 11:12-0400 Systolic blood pressure 105 mm[Hg] Dr. Cosme Berger Work Phone: [facility] Work Phone: 11-19-2021 10:44-0400 Body height 170.[address] Cosme Berger Work Phone: [facility] Work Phone: 11-19-2021 10:44-0400 Body weight 94.[address] Cosme Berger Work Phone: [facility] Work Phone: 11-19-2021 10:44-0400 Respiratory rate 16 /min Dr. Cosme Berger Work Phone: [facility] Work Phone: 12-19-2020 08:26-0400 Body mass index (BMI) [Ratio] 34 kg/m2 Dr. Cosme Berger Work Phone: [facility] Work Phone: Encounters Encounter Date Encounter Type Care Provider Facility Start: 12-13-2024 Non-patient / Non-visit Dr. Peter Perea MD -[facility] Start: 12-13-2024 End: 12-13-2024 Admission to same day surgery center Dr. Peter Perea MD [facility] Start: 12-13-2024 End: 12-13-[address] Cosme Berger MD Work Phone: [facility] Start: 12-07-2024 End: 12-07-[address] Bowen Nagel MD -[facility] Work Phone: Start: 12-07-2024 End: 12-07-[address] Cosme Berger MD Work Phone: -[facility] Start: 11-30-2024 End: 11-30-[address] Peter Perea MD -[facility] Work Phone: Start: 11-30-2024 End: 11-30-[address] Cosme Berger MD Work Phone: [facility] Work Phone: Start: 11-26-2024 End: 11-26-[address] Cosme Berger MD Work Phone: [facility] Work Phone: Start: 11-26-2024 End: 11-26-2024 Patient encounter procedure Paola BRODERICK [facility] Work Phone: Start: 11-26-2024 End: 11-26-2024 ambulatory Cosme Berger Facility:[facility] Start: 10-18-2024 End: 10-18-[address] Juma Hamilton MD -[facility] Start: 10-18-2024 End: 10-18-[address] Cosme Berger MD Work Phone: [facility] Work Phone: Start: 10-14-2024 End: 10-14-2024 Patient encounter procedure Angie BRODERICK -[facility] Work Phone: Start: 10-14-2024 End: 10-14-2024 ambulatory Cosme Berger Facility:[facility] Start: 10-11-2024 End: 10-11-2024 Emergency department patient visit Dr. Flaquito Huerta DO -Emergency Department Work Phone: Start: 07-14-2024 End: 07-14-2024 Patient encounter procedure Jamia Summers -Laboratory Work Phone: Start: 07-14-2024 End: 07-14-2024 ambulatory Jamia Summers Facility:[facility] Start: 01-11-2024 End: 01-11-2024 ambulatory Cosme [place] Facility:[facility] Start: 12-18-2023 End: 12-18-2023 ambulatory [facility] Facility:[facility] Start: 10-06-2023 End: 10-06-2023 ambulatory [facility] Work Phone: Start: 10-06-2023 End: 10-06-2023 Patient encounter procedure [facility]-Radiology, [facility] Work Phone: Start: 11-18-2022 End: 11-19-2022 ambulatory COSME BERGER MD Facility:A Start: 08-20-2022 End: 08-20-2022 ambulatory COSME BERGER MD Facility:[facility] Start: 08-20-2022 End: 08-20-2022 Minor Procedure CONSTANTINO BERGMAN MD [facility] Start: 08-05-2022 End: 08-06-2022 ambulatory COSME BERGER MD Facility:[facility] Start: 07-08-2022 End: 07-09-2022 ambulatory CONSTANTINO BERGMAN MD Facility:[facility] Start: 07-08-2022 End: 07-08-2022 Patient encounter procedure CONSTANTINO BERGMAN MD [facility] Start: 07-07-2022 End: 07-08-2022 ambulatory CONSTANTINO BERGMAN MD Facility:[facility] Start: 07-07-2022 End: 07-07-2022 Patient encounter procedure CONSTANTINO BERGMAN MD [facility] Start: 05-26-2022 End: 05-26-2022 ambulatory [facility] Work Phone: Start: 05-26-2022 End: 05-26-2022 Patient encounter procedure [facility], [facility] Start: 11-19-2021 End: 11-19-[address] Cosme Berger Work Phone: [facility]-Laboratory Start: 11-19-2021 End: 11-19-[address] Cosme Berger Work Phone: [facility] Start: 11-18-2021 End: 11-18-[address] Cosme Berger Work Phone: [facility]-Laboratory Start: 08-13-2017 End: 08-13-2017 Ambulatory ANANTHA [facility] Start: 08-05-2017 End: 08-07-2017 Ambulatory ANANTHA [facility] Start: 07-10-2017 Ambulatory AIDAN Alexandre [facility] Start: 07-10-2017 End: 07-10-2017 Ambulatory AIDAN [facility] Start: 05-05-2017 End: 05-05-2017 Ambulatory AIDAN [facility]MONDS[facility] Start: 05-05-2017 End: 05-08-2017 Ambulatory AIDAN EDMONDSON [facility] Procedures Date Procedure Procedure Detail Performing Clinician Start: 12-13-[address] Cosme Berger MD Work Phone: Start: 11-26-2024 MRI of lumbar spine Dr. Cosme Berger MD Work Phone: Start: 10-18-2024 X-ray of lumbosacral spine Dr. Cosme Berger MD Work Phone: Start: 10-11-2024 Plain chest X-ray Dr. Sera Berger MD Work Phone: Start: 10-11-[address] Cosme Berger MD Work Phone: Start: 07-14-2024 Assay of prostate sp ecific antigen total Dr. Cosme Berger MD Work Phone: Comment on above: This test was perfor med using the TPSA assay method for the[employer] chemistry system. Values obtained with differentassay methods cannot be used interchangably.When changing PSA assays in the course of monitoring apatient, additional sequential testing should be carriedout to confirm baseline values. Start: 11-03-2023 History of placement of stent for coronary artery disease History of coronary artery stent placement Angie BRODERICK Comment on above: PCI-FLORY-Mid LAD with 3.00 x 24 synergy FLORY 11/25/2016;KXO-ESQ-Osptmy, Mid and Distal RCA all with 3.0 x 28 mm Promus synergy stents 06/25/16;FLORY to Otial Diagonal 1 (2.25X18 Fili [place]) and FLORY to mid RCA (3.0x12 Fili [place]) 11/03/23 Start: 10-06-2023 Plain x-ray of pelvi [...] Treatment Date Care Activity Detail Author Start: 12-13-2024 Patient discharge [facility] Start: 10-18-2024 X-ray of lumbosacral spine L/S Spine Min 4 Views [facility] Start: 10-18-2024 XR Spine Lumbar and Sacrum GE 4 Views [facility] Start: 10-14-2024 Evaluation of diagno stic study results [facility] Start: 10-11-2024 [facility] Start: 10-11-2024 [facility] Hepatic function panel [facility] Lipid 1996 panel - S carmencita or Plasma [facility] MR Cervical spine [facility] NM Heart Views W str ess and W radionuclide IV [facility] Work Phone: Nuclear Ab [Presence ] in Serum [facility] Work Phone: Patient Education ED Sciatica [facility] Work Phone: Patient referral [facility] Work Phone: US Carotid arteries [facility] Work Phone: Payers Date Payer Category Payer Medicare [id number] 2023 Self-pay [id number] 2022 Private Health Insurance [facility] [id number] 2020 Private Health Insurance [facility] [id number] 2016 Unknown [id number] 1966 Unknown [id number] 2.16.8 [id number] 1966 Unknown [id number] 2.16.8 [id number] 1966 Unknown [id number] 2.16.8 [id number] 1966 Unknown [id number] 2.16.8 [id number] 1966 Unknown [id number] 2.16.8 [id number] Medicare [id number] Unknown [id number] 2.16.8 [id number] Unknown [id number] 2.16.8 40.1.849890.3.579.2.462 Unknown [id number] 2.16.8 40.1.255963.3.579.2.462 Unknown [id number] 2.16.8 40.1.337722.3.579.2.462 Unknown [id number] 2.16.8 40.1.691614.3.579.2.462 Unknown [id number] 2.16.8 40.1.471174.3.579.2.462 Unknown [id number] 2.16.8 40.1.867493.3.579.2.462 Unknown [id number] 2.16.8 40.1.213133.3.579.2.462 Unknown [id number] 2.16.8 40.1.905615.3.579.2.462 Unknown [id number] 2.16.8 40.1.166100.3.579.2.462 Unknown [id number] 2.16.8 [id number] Unknown [id number] 2.16.8 [id number] Social History Date Type Detail Facility Start: 11-19-2021 End: 06-12-2023 Tobacco smoking status NHIS Unknown if ever smoked [facility] Start: 12-19-2020 Occasional [facility] Start: 08-22-2018 None [facility] Start: 08-22-2018 Spouse/ Signif icant Other [facility] Start: 1965 Sex Assigned At Male [facility] Start: 07-28-2020 End: 12-01-2024 Tobacco smoking status Never smoked tobacco (finding) [facility] Sex Assigned At Sex [facility] Start: 08-31-2016 Non-smoker [facility] Medical Equipment Procedure Code Equipment Code Equipment Origin al Text Equipment Identifier Dates Drug-eluting coronary artery stent, [id number]-[id number] lymer-coated ()[id number] Start: 10-30-2023 Drug-eluting coronary artery stent, dzr-[id number] lymer-coated ()[id number] FDA Start: 10-30-2023 Goals Date Patient Goal Desired Activity /State Functional Status Date Assessment Result Facility 12-13-2024 Functional status Bathroom Privilege [facility] Work Phone: 08-20-2022 Functional Status Maintained [facility] Mental Status Date Assessment Result Facility 12-13-2024 Cognitive function Voice/Name [facility] Work Phone: 08-20-2022 Mental Status Orientation Oriented x 4 [facility] Clinical Notes 06-08-2016 to 12-13-2024 Note Date & Type Note Facility 12-13-2024 History and physical note [facility] 12-13-2024 Consult note Note Date/Time December 13, 2024 10:31am [facility] Medical Records Department [address] [place] [address] Pre-Anesthesia Evaluation 12/13/24 1012 MR#: [id number] Acct: [id number] Name: ARYAN ROBERTS Rep #:[id number] : 1965 59 From: Jacob Mckinney MD PCP: Dr. Cosme Berger MD Status:R EG SD Y Race: C Location: [place] [address] ASA Classification* ASA Classification ASA Classification: 3 Assessment & Plan Anesthesia* Anesthesia Assessment Anesthesia Assessment: Discussed sedation and/or anesthesia options, risks, benefits, and alternatives with patient/parents/legal guardian/POA. Questions invited. The patient/parents/legal guardian/POA seems to understand and agrees to proceedwith anesthesia plan. Reviewed the physical assessment, medical history, allergy history and patient home medications list prior to surgery/procedure/anesthetic and documented any changes. Performed airway and anesthesia risk assessments. Anesthesia Type Anesthesia Type: MAC History Source History Obtained from:: Patient and Chart Anesthesia Focused Assessment* Temperature: 97.5 F Pulse Rate: 75 Blood Pressure: 143/84 Respiratory Rate: 16 Pulse Ox: 97 Oxygen Delivery Method: Room Air Airway Assessment Mouth opens: >3 cm Mallampati Score: II Teeth Condition: Missing (Missing left lower molar. Rest of the teeth are tight.) Neck Range of motion (ROM): Limited ROM (Slight Decrease) Labs Anesthesia Preop lab: CBC WBC 5.2 K/mm3 (4.4-11.0) 10/11/24 09:10 10/11/24 RBC 5.44 M/mm3 (4.6-6.2) 10/11/24 09:10 10/11/24 Hgb 17.1 g/dL (13.0-16.5) H 10/11/24 09:10 5 Hct 48.2 % (40-54) 10/11/24 09:10 10/11/24 Plt Count 267 K/mm3 (150-450) 10/11/24 09:10 10/11/24 CHEMISTRY Potassium 4.2 mmol/L (3.3-5.1) 10/11/24 09:10 10/11/24 Sodium 138 mmol/L (133-145) 10/11/24 09:10 10/11/24 BUN 14 mg/dL (4-19) 10/11/24 09:10 10/11/24 Creatinine 1.29 mg/dL (0.70-1.20) H 10/11/24 09:10 Glucose 130 mg/dL (70-99) H 10/11/24 09:10 10/11/24 COAG PT 13.7 SECONDS (11.7-14.9) 08/23/18 05:15 Pre-Assessment Diagnosis/Proposed Procedure Planned Operative Procedure(s): UMBILICAL HERNIA Anesthesia History 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 When Was Last Pacemaker Check QUESTION #4 FULL TEXT: You/Your Family Experience fever (hyperthermia) with Anesthesia Last Oral Intake Last Oral intake: Last Oral Intake NPO since 05:30 12/13/24 09:47 Meds taken in AM with sips of Yes 12/13/24 09:47 water? 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 Female No 12/01/24 11:14 HX of Motion Sickness No 12/01/24 11:14 HX of N/V After Surgery No 12/01/24 11:14 Non-Smoker Yes 12/01/24 11:14 Duration of Surgery greater Yes 12/01/24 11:14 than 60 minutes Number of Risk Factors 2 12/01/24 11:14 PONV Score Moderate Risk 12/01/24 11:14 Height & Weight Height & Weight: Anesthesia: Height & Weight Height 5 ft 7 in 12/13/24 09:47 Weight: 103.8 kg 12/13/24 09:47 Body Mass Index (BMI) 35.8 12/13/24 09:47 Respiratory Assessment Respiratory Assessment - telecommunications sales representative: Respiratory Tract Infection Hx - telecommunications sales representative Hx Respiratory Tract Infection No 12/01/24 11:14 STOP Sleep Apnea STOP Sleep Apnea - telecommunications sales representative: STOP Sleep Apnea - telecommunications sales representative Hx Hypertension Yes: COTROLLED WITH MEDS 12/01/24 11:14 Hx Sleep Apnea Yes 12/01/24 11:14 CPAP No 12/01/24 11:14 BIPAP No 12/01/24 11:14 Do you snore loudly (louder than talking or can be heard Do you often feel tired/ fatigued/ sleepy during daytime? Has anyone observed you stop breathing during sleep? STOP Results Positive 12/01/24 11:14 QUESTION #5 FULL TEXT : Do you snore loudly (louder than talking or can be heard through closed doors)? 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 Specify any problems Hx of Preganancy in last 3 N/A 12/01/24 11:14 Months Nurse Filling Out Transfusion [email or web address] 12/01/24 11:14 & Questions: Date: 12/01/24 12/01/24 11:14 Time: 11:18 12/01/24 11:14 Patient unable to answer at this time (ie. confused, unrespo /Reproduction History /Reproductive History - telecommunications sales representative: /Reproductive Hx- telecommunications sales representative Hx Now No 12/01/24 11:14 Gestational Age (in weeks): EDC: Hx Hx Para Hx Section SAB No 12/01/24 11:14 Active Medications Active Medications: Current Medications Generic Name Dose Route Start Last Admin Trade Name Freq PRN Reason Stop Dose Admin Cefazolin Sodium 2 gm/ Sodium 110 mls @ 200 mls/hr 12/13/24 11:00 Chloride IV 12/13/24 11:32 INTRAOP ONE Lactated Ringer's 1,000 mls @ 15 mls/hr 12/13/24 09:45 12/13/24 09:54 IV 15 mls/hr .Q48H MAHOGANY Administration PFSH Medical History Back pain History of echocardiogram History of stress test Cardiology follow-up encounter Umbilical hernia Coronary artery dissection (~06/25/16) Essential hypertension Inflammatory polyarthropathy BPH (benign prostatic hyperplasia) GERD (gastroesophageal reflux disease) 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 Hypercholesterolemia Non-STEMI (non-ST elevated myocardial infarction) Home Medications ?Medication ?Instructions ?Recorded ?Last Taken ?Type fenofibrate 160 mg tablet 160 mg PO DAILY CHOLESTEROL 06/12/23 12/13/24 History aspirin 81 mg chewable tablet 81 mg PO DAILY HEART HEA LTH 10/29/23 12/07/24 History clopidogrel 75 mg tablet 75 mg PO DAILY #90 TABLETS 0 01/18/24 12/07/24 Rx doxazosin 4 mg tablet 4 mg PO QHS #90 TABLETS 01/0610/10/24 Rx ezetimibe 10 mg tablet 10 mg PO DAILY #90 TABLETS 1 07/17/23 12/13/24 Rx artificial tears(hypromellose) 0.3 1 drp EACH EYE BID PRN dry eye(s) 10/11/24 Unknown History % eye drops cholecalciferol (vitamin D3) 50 50 mcg PO QODAY 10/10/24 History mcg (2,000 unit) capsule finasteride 5 mg tablet 5 mg PO DAILY 10/11/2410/11 History folic acid 800 mcg tablet 800 mcg PO BID 10/11/2411/30 History losartan 25 mg tablet 25 mg PO DAILY 10/11/2410/07 History Held on 10/11/24. Instructions: PT BP HAS BEEN LOW, SO PT HASNT BEEN TAKING methocarbamol 500 mg tablet 500 mg PO TID PRN back kaley n 3 days 10/11/24 Unknown Rx #10 tabs oxycodone 5 mg tablet 5 mg PO Q6H PRN pain 3 days #12 10/11/24 Unknown Rx tabs meloxicam 15 mg tablet 15 mg PO DAILY 12/01/24 Unkn own History Allergy/AdvReac Type Severity Reaction Status Date / Time atorvastatin (From Lipitor) AdvReac Severe mylagias Verified 12/13/24 09:36 evolocumab (From Repatha AdvReac Severe Blurred Verified 12/13/24 09:36 SureClick) vision metoprolol AdvReac Severe Rash Verified 12/13/24 09:36 hydrocodone bitartrate (From AdvReac Intermediate Itching Verified 12/13/24 09:36 Vicodin) pravastatin AdvReac GI upset Verified 12/13/24 09:36 and sore mouth Family History Mother , age 64 CAD (coronary artery disease) Rheumatic fever Brother CAD (coronary artery disease) Surgical History H/O shoulder surgery History of colonoscopy (~10/2019) Hx of abdominal surgery (~10/2019) Hx of hand surgery History of coronary artery stent placement (11/03/23) Social History Smoking Status: Never smoker alcohol intake: current alcohol intake frequency: a few times a month substance use type: does not use caffeine: Yes Type: coffee Number of servings: 1 Review of Systems (Anesthesia) ROS Narrative System reviewed and no additional complaints, except as documented. 12/13/24 1031 <Electronically signed by Jacob bonds MD> Date _ Jacob Mckinney MD Cosigner Signature: Date CC: ~ Signed [facility] Work Phone: [phone]) 293-530407-08-2025 Consult note [facility] Medical Records Department [address] [place] [address] Anesthesia Postop Eval I 12/13/24 1136 MR#: [id number] Acct: [id number] Name: ARYAN ROBERTS Rep #:[id number] : 1965 59 From: Rhiannon Zendejas RNA PCP: Dr. Cosme Berger MD Status:R EG [facility] [place] Race: C Location: [place] [address] Anesthesia: Postop Eval I Current Vital Signs Temperature: 97.4 F Pulse Rate: 75 Blood Pressure: 143/84 Respiratory Rate: 16 Pulse Ox: 97 Oxygen Delivery Method: Room Air Assessment Airway patent: No Spontaneous unlabored respirations: Yes Mental status: Awake and Calm nausea: No Vomiting: No Anesthesia Complication: No Fluid Hydration Crystalloid volume administer (ml): 500 Total IV fluid infused: 500 Progress Note Anesthesia document: Postop Eval 1 completed: Yes 12/13/24 1139 [employer]PER[employer]ENDENT> Date _ Rhiannon Archre Signature: Date CC: ~ Signed [facility]07-08-2025 Discharge summary [facility] Medical Records Department [address] [place] [address] Instructions for Home/Discharge Instructions 12/13/24 1125 MR#: [id number] Acct: [id number] Name: ARYAN ROBERTS Rep #:[id number] : 1965 59 From: Peter franklin MD PCP: Dr. Cosme Berger MD Status:R [facility] Discharge Instructions Procedure Hernia Diet Discharge Diet: Light diet - advance as tolerated Activity Discharge Activity: May Not Drive (for 2-3 days or while taking narcotic pain meds.) and May Shower(with the bandage in place 1-2 days after surgery.) Lifting Restrictions: 20 pounds for 4 weeks. Additional Activity Instructions:: Climbing stairs is fine, walking is encouraged. Sitting in bed may be uncomfortable. Sitting up using your lateral muscles (sitting up sideways) is usually more comfortable. Do not drive, work heavy equipment of sign legal documents for 24 hours. Pain medications may cause nausea, you should typically eat light foods as you take your pain medications. Pain medications may also cause constipation. If you have difficulty with this, discuss with your doctor. Alternate ibuprofen and Tylenol for pain control, oxycodone for breakthrough pain. Resume aspirin and Plavix tomorrow Dressing / Incision Call your doctor if your incision/area has: Continuous Slow Oozing, Sudden Increased Bleeding, Increased Pain/ Swelling, Increased Redness and Foul Smelling Discharge Call your doctor if you observe: Fever of 101 or Higher Suture Line Care: Avoid Pulling/Pushing and Avoid Pinching/Bending Remove Dressing in: 3 days (Remove clear bandages in 2 days, remove Steri- Stripsin 7 to 10 days.) Cleanse incision/area with: Soap & Water Follow Up Care Please Follow Up With: Peter Perea MD When: Please call to schedule 2 week follow up appointment. [phone] Test Results: Test results from this visit will be discussed in further detail at your follow- up appointment, if applicable. Discharge Plan Admission Attending Provider: Peter Perea Primary Care Provider: Cosme Berger Instructions Print Language: Kosovan Discharge Orders/Prescriptions Prescriptions: New oxycodone 5 mg Tablet 5 - 10 mg PO Q4H PRN PRN (Reason: Pain Score 4-10) 5 Days Qty: 14 0RF No Action fenofibrate 160 mg tablet 160 mg PO DAILY oxycodone 5 mg tablet 5 mg PO Q6H PRN (Reason: pain) 3 Days Qty: 12 0RF methocarbamol 500 mg tablet 500 mg PO TID PRN (Reason: back pain) 3 Days Qty: 10 0RF finasteride 5 mg tablet 5 mg PO DAILY losartan 25 mg tablet 25 mg PO DAILY Patient Comments: HAS BEEN TAKING 12.5 MG DAILY artificial tears(hypromellose) 0.3 % drops 1 drp EACH EYE BID PRN (Reason: dry eye(s)) cholecalciferol (vitamin D3) 50 mcg (2,000 unit) capsule 50 mcg PO QODAY Rx Instructions: pt takes at night folic acid 800 mcg tablet 800 mcg PO BID meloxicam 15 mg tablet 15 mg PO DAILY aspirin 81 mg tablet,chewable 81 mg PO DAILY doxazosin 4 mg tablet 4 mg PO QHS Qty: 90 3RF clopidogrel 75 mg tablet 75 mg PO DAILY Qty: 90 3RF ezetimibe 10 mg tablet 10 mg PO DAILY Qty: 90 3RF Referrals / Follow Up: Cosme Berger MD [Primary Care Provider] - Disposition Disposition (needs filled in before D/C Order can be placed): Home, Self Care 12/13/24 1127Agerhard Perea MD CC: Dr. Cosme Berger MD ~ Signed [facility]07-08-2025 History and physical note Author Peter Perea [facility] Note Date/Time December 13, 2024 12:43 pm [facility] Medical Records Department [address] [place] [address] History & Physical Exam 12/13/24 0926 MR#: [id number] Acct: [id number] Name: ARYAN ROBERTS Rep #:[id number] : 1965 59 From: Peter franklin MD PCP: Dr. Cosme Berger MD Status:R [facility] Location: [place] [address] History and Physical Date of Admission: 12/13/24 Intake Vital Signs 10/18/2510:02 12/01/2507:22 Height 5 ft 7 in 5 ft 7 in Weight: 227 lb 231 lb 6 oz BMI 35.5 36.2 BP 134/87 H Blood Pressure Location Rt brachial Position Sitting Respiration 18 Pulse 92 Pulse Source Monitor Temp 97.2 F L Temp Source Temporal Pulse Oximetry (%) 99 Oxygen Delivery Method room air Intake Visit Reasons: UMBILICAL HERNIA Chief Complaint: umbilical hernia Is patient in pain?: Yes Allergies atorvastatin (From Lipitor) Adverse Reaction (Severe, Verified 11/30/24 08:23) mylagiasevolocumab (From Repatha SureClick) Adverse Reaction (Severe, Verified 11/30/24 08:23) Blurred visionmetoprolol Adverse Reaction (Severe, Verified 11/30/24 08:23) Rashhydrocodone bitartrate (From Vicodin) Adverse Reaction (Intermediate, Verified 11/30/24 08:23) Itchingpravastatin Adverse Reaction (Verified 11/30/24 08:23) GI upset and sore mouth Medications ?Medication ?Instructions ?Recorded ?Confirmed ?Type fenofibrate 160 mg tablet 160 mg PO DAILY CHOLESTEROL 06/12/23 History aspirin 81 mg chewable tablet 81 mg PO DAILY HEART HEALTH 10/29/23 History nitroglycerin 0.4 mg sublingual 0.4 mg sublingual DAILY PRN CHEST 11/30/24 History tablet PAIN clopidogrel 75 mg tablet 75 mg PO DAILY #90 TABLETS 01/18/2411/07 Rx doxazosin 4 mg tablet 4 mg PO QHS #90 TABLETS 01/18/24 5 Rx ezetimibe 10 mg tablet 10 mg PO DAILY #90 TABLETS 05/16/2411/07 Rx artificial tears(hypromellose) 0.3 1 drp EACH EYE BID PRN dry eye(s) 11/30/24 History % eye drops cholecalciferol (vitamin D3) 50 50 mcg PO QODAY 10/11/24 11/30/24 Histor y mcg (2,000 unit) capsule finasteride 5 mg tablet 5 mg PO DAILY 10/11/24 11/30/24 History folic acid 800 mcg tablet 800 mcg PO QHS 10/11/24 11/30/24 History losartan 25 mg tablet 25 mg PO DAILY 10/11/24 11/30/24 History Held on 10/11/24. Instructions: PT BP HAS BEEN LOW, SO PT HASNT BEEN TAKING mecobalamin (vitamin B12) 500 mcg 500 mcg PO DAILY 10/11/24 11/30/24 Histo ry chewable tablet methocarbamol 500 mg tablet 500 mg PO TID PRN back pain 3 days 10/1111/30/24 Rx #10 tabs omeprazole 20 mg capsule,delayed 20 mg PO DAILY 10/11/24 11/30/24 History release oxycodone 5 mg tablet 5 mg PO Q6H PRN pain 3 days #12 10/11/24 11/30/24 Rx tabs clindamycin phosphate 1 % lotion topical 10/14/24 11/30/24 History duloxetine 60 mg capsule,delayed 120 mg PO DAILY 10/14/24 11/30/24 Histor y release PFSH Medical History (Updated 11/30/24 @ 08:22 by Corinna Agarwal LPN) Umbilical hernia Coronary artery dissection (~06/25/16) Essential hypertension Inflammatory polyarthropathy BPH (benign prostatic hyperplasia) GERD (gastroesophageal reflux disease) 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 Hypercholesterolemia Non-STEMI (non-ST elevated myocardial infarction) Surgical History History of colonoscopy (~10/2019) Hx of abdominal surgery (~10/2019) Hx of hand surgery History of coronary artery stent placement (11/03/23) Family History Mother , age 64 CAD (coronary artery disease) Rheumatic feverBrother CAD (coronary artery disease) Social History Smoking Status: Never smoker alcohol intake: current alcohol intake frequency: a few times a month substance use type: does not use caffeine: Yes Type: coffee Number of servings: 1 HPI HPI HPI: Patient has a small umbilical hernia that has been there for about a month. He reports that sometimes it grows larger. It is painful and it causes tenderness that radiates down toward his pubic bone ROS General General: Yes weight change (gain); No appetite, fatigue, colon cancer, breast cancer or weakness HEENT HEENT: No difficulty swallowing, eye injury, eye surgery, swollen glands or hoarseness Endo Endocrine: No thyroid disease, diabetes mellitus, thyroid cancer, Hair loss, heat intolerance or cold intolerance Skin Skin: No rash or changing moles Musc Musculoskeletal: Yes back problems and arthritis; No rheumatoid arthritis, gout or joint pain Cardio Cardiovascular: Yes heart disease, high blood pressure, heart attack and heart stent; No murmur, pacemaker, atrial fibrillation, palpitations, shortness of breath with exertion or chest pain Psych Psychiatric: No depression, anxiety or hearing voices Resp Respiratory: Yes shortness of breath, Yes sleep apnea, Yes cough, No COPD, No asthma, No emphysema and No wheezing Gastro Gastrointestinal: Yes abdominal pain, No nausea or vomiting, No diarrhea, No constipation, No blood in stool, Yes acid reflux, No hemorrhoids, No ulcers, No gallbladder problem and No black,tarry stools Juan J Hematologic: Yes blood thinners, No blood disorders, No bleeding, No anemia and No blood clots Neuro Neurologic: No numbness, No tingling and No weakness Exam Const General: cooperative Orientation: alert and oriented x3 HENHI Head: normal to inspection Neck Neck: normal visual inspection and full ROM Chest Chest palpation & inspection: normal inspection of the chest Resp Effort & Inspection: normal respiratory effort Auscultation: clear to auscultation bilaterally Cardio Rate: regular rate Rhythm: regular rhythm GI Inspection: non-distended Palpation: soft, hernia umbilical and nontender Skin General: no rashes or lesions noted Neuro General: patient alert and patient oriented x3 Extrem General: full ROM Psych Appearance: grossly normal Mental Status: mental status grossly normal Assessment and Plan Assessment and Plan (1) Umbilical hernia: Status: Acute Plan: Patient has a small umbilical hernia. It is reducible. It is too small for mesh. I discussed repairing it without mesh with just sutures. Patient would like it repaired. I discussed the risks of bleeding and infection. Patient understands the risks and is willing to proceed. Patient will hold his aspirin and Plavix for 5 days. Peter Perea MD Pager: [facility] [address], [address] [place] [address] Office: I have examined the patient and the H&P has been reviewed. There are no clinicalchanges since date of exam. 12/13/24925 <Electronically signed by Peter Perea MD> Cosigner Signature (if applicable): CC: Dr. Peter Perea MD; Dr. Cosme Berger MD~ Signed [facility] Work Phone: [phone]) 906-107407-08-2025 Procedure note [facility] Medical Records Department [address] [place] [address] Operative Report 12/13/24 1122 MR#: [id number] Acct: [id number] Name: ARYAN ROBERTS Rep #:[id number] : 1965 59 From: Peter franklin MD PCP: Dr. Cosme Berger MD Status:R [facility] Location: [place] [address] Operative Report (Standard) Operative Information Date of Procedure: 12/13/24 Pre-Operative Diagnosis: Umbilical hernia Post-Operative Diagnosis: Umbilical hernia Surgery/Procedure Performed: Umbilical hernia repair unhairing inspector: No Type of Anesthesia: General/Regional RN Documented Start/Stop Times: Operation Date: 12/13/24 11:00 Case Time Into Pre-Op 12/13/24 09:39 Out of Pre-Op 12/13/24 10:44 Anesthesia Start 12/13/24 10:47 Into Room 12/13/24 10:47 Procedure Start 12/13/24 11:09 Procedure Start Time: 11:09 Procedure Stop Time: 11:25 Select all DRAINS/GRAFTS/IMPLANTS that apply: None Estimated Blood Loss: 5 Specimen collected: No Description of surgery: Patient was brought back to the operating room and MAC anesthesia was induced. The abdomen was prepped and draped in usual sterile fashion. A curvilinear incision was marked inferior to the umbilicusand injected with local anesthetic. Incision was then made with a scalpel and deepened to the hernia sac. The hernia sac was removed from the umbilical stalk. The hernia contents were reduced and thehernia was closed with 0 PDS suture. The umbilical defect was approximately 5 mm. Next the cavity was irrigated and suctioned dry and then the skin was closed with interrupted 3-0 Vicryl sutures and Steri-Strips and bandages were applied. Surgical Findings: Small umbilical hernia Complications Complications: No Admit VTE Documentation VTE Mechan Device Prophylaxis: SCD's 12/13/24 1124 Cosigner Signature (if applicable): CC: Dr. Peter Perea MD; Dr. Cosme Berger MD~ Signed [facility]07-08-2025 Consult note [facility] Medical Records Department [address] [place] [address] Pre-Anesthesia Evaluation 12/13/24 1012 MR#: [id number] Acct: [id number] Name: ARYAN ROBERTS Rep #:[id number] : 1965 59 From: Jacob Mckinney MD PCP: Dr. Cosme Berger MD Status:R [facility] Y Race: C Location: [place] [address] ASA Classification* ASA Classification ASA Classification: 3 Assessment & Plan Anesthesia* Anesthesia Assessment Anesthesia Assessment: Discussed sedation and/or anesthesia options, risks, benefits, and alternatives with patient/parents/legal guardian/POA. Questions invited. The patient/parents/legal guardian/POA seems to understand and agrees to proceedwith anesthesia plan. Reviewed the physical assessment, medical history, allergy history and patient home medications list prior to surgery/procedure/anesthetic and documented any changes. Performed airway and anesthesia risk assessments. Anesthesia Type Anesthesia Type: MAC History Source History Obtained from:: Patient and Chart Anesthesia Focused Assessment* Temperature: 97.5 F Pulse Rate: 75 Blood Pressure: 143/84 Respiratory Rate: 16 Pulse Ox: 97 Oxygen Delivery Method: Room Air Airway Assessment Mouth opens: >3 cm Mallampati Score: II Teeth Condition: Missing (Missing left lower molar. Rest of the teeth are tight.) Neck Range of motion (ROM): Limited ROM (Slight Decrease) Labs Anesthesia Preop lab: CBC WBC 5.2 K/mm3 (4.4-11.0) 10/11/24 09:10 10/11/24 RBC 5.44 M/mm3 (4.6-6.2) 10/11/24 09:10 10/11/24 Hgb 17.1 g/dL (13.0-16.5) H 10/11/24 09:10 5 Hct 48.2 % (40-54) 10/11/24 09:10 10/11/24 Plt Count 267 K/mm3 (150-450) 10/11/24 09:10 10/11/24 CHEMISTRY Potassium 4.2 mmol/L (3.3-5.1) 10/11/24 09:10 10/11/24 Sodium 138 mmol/L (133-145) 10/11/24 09:10 10/11/24 BUN 14 mg/dL (4-19) 10/11/24 09:10 10/11/24 Creatinine 1.29 mg/dL (0.70-1.20) H 10/11/24 09:10 Glucose 130 mg/dL (70-99) H 10/11/24 09:10 10/11/24 COAG PT 13.7 SECONDS (11.7-14.9) 08/23/18 05:15 Pre-Assessment Diagnosis/Proposed Procedure Planned Operative Procedure(s): UMBILICAL HERNIA Anesthesia History 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 When Was Last Pacemaker Check QUESTION #4 FULL TEXT: You/Your Family Experience fever (hyperthermia) with Anesthesia Last Oral Intake Last Oral intake: Last Oral Intake NPO since 05:30 12/13/24 09:47 Meds taken in AM with sips of Yes 12/13/24 09:47 water? 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 Female No 12/01/24 11:14 HX of Motion Sickness No 12/01/24 11:14 HX of N/V After Surgery No 12/01/24 11:14 Non-Smoker Yes 12/01/24 11:14 Duration of Surgery greater Yes 12/01/24 11:14 than 60 minutes Number of Risk Factors 2 12/01/24 11:14 PONV Score Moderate Risk 12/01/24 11:14 Height & Weight Height & Weight: Anesthesia: Height & Weight Height 5 ft 7 in 12/13/24 09:47 Weight: 103.8 kg 12/13/24 09:47 Body Mass Index (BMI) 35.8 12/13/24 09:47 Respiratory Assessment Respiratory Assessment - telecommunications sales representative: Respiratory Tract Infection Hx - telecommunications sales representative Hx Respiratory Tract Infection No 12/01/24 11:14 STOP Sleep Apnea STOP Sleep Apnea - telecommunications sales representative: STOP Sleep Apnea - telecommunications sales representative Hx Hypertension Yes: COTROLLED WITH MEDS 12/01/24 11:14 Hx Sleep Apnea Yes 12/01/24 11:14 CPAP No 12/01/24 11:14 BIPAP No 12/01/24 11:14 Do you snore loudly (louder than talking or can be heard Do you often feel tired/ fatigued/ sleepy during daytime? Has anyone observed you stop breathing during sleep? STOP Results Positive 12/01/24 11:14 QUESTION #5 FULL TEXT : Do you snore loudly (louder than talking or can be heard through closeddoors)? 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 Specify any problems Hx of Preganancy in last 3 N/A 12/01/24 11:14 Months Nurse Filling Out Transfusion [email or web address] 12/01/24 11:14 & Questions: Date: 12/01/24 12/01/24 11:14 Time: 11:18 12/01/24 11:14 Patient unable to answer at this time (ie. confused, unrespo /Reproduction History /Reproductive History - telecommunications sales representative: /Reproductive Hx- telecommunications sales representative Hx Now No 12/01/24 11:14 Gestational Age (in weeks): EDC: Hx Hx Para Hx Section SAB No 12/01/24 11:14 Active Medications Active Medications: Current Medications Generic Name Dose Route Start Last Admin Trade Name Freq PRN Reason Stop Dose Admin Cefazolin Sodium 2 gm/ Sodium 110 mls @ 200 mls/hr 12/13/24 11:00 Chloride IV 12/13/24 11:32 INTRAOP ONE Lactated Ringer's 1,000 mls @ 15 mls/hr 12/13/24 09:45 12/13/24 09:54 IV 15 mls/hr .Q48H MAHOGANY Administration PFSH Medical History Back pain History of echocardiogram History of stress test Cardiology follow-up encounter Umbilical hernia Coronary artery dissection (~06/25/16) Essential hypertension Inflammatory polyarthropathy BPH (benign prostatic hyperplasia) GERD (gastroesophageal reflux disease) 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 Hypercholesterolemia Non-STEMI (non-ST elevated myocardial infarction) Home Medications ?Medication ?Instructions ?Recorded ?Last Taken ?Type fenofibrate 160 mg tablet 160 mg PO DAILY CHOLESTEROL 06/12/23 12/13/24 History aspirin 81 mg chewable tablet 81 mg PO DAILY HEART HEA LTH 10/29/23 12/07/24 History clopidogrel 75 mg tablet 75 mg PO DAILY #90 TABLETS 0 01/18/24 12/07/24 Rx doxazosin 4 mg tablet 4 mg PO QHS #90 TABLETS 01/0610/10/24 Rx ezetimibe 10 mg tablet 10 mg PO DAILY #90 TABLETS 1 07/17/23 12/13/24 Rx artificial tears(hypromellose) 0.3 1 drp EACH EYE BID PRN dry eye(s) 10/11/24 Unknown History % eye drops cholecalciferol (vitamin D3) 50 50 mcg PO QODAY 10/10/24 History mcg (2,000 unit) capsule finasteride 5 mg tablet 5 mg PO DAILY 10/11/2410/11 History folic acid 800 mcg tablet 800 mcg PO BID 10/11/2411/30 History losartan 25 mg tablet 25 mg PO DAILY 10/11/2410/07 History Held on 10/11/24. Instructions: PT BP HAS BEEN LOW, SO PT HASNT BEEN TAKING methocarbamol 500 mg tablet 500 mg PO TID PRN back kaley n 3 days 10/11/24 Unknown Rx #10 tabs oxycodone 5 mg tablet 5 mg PO Q6H PRN pain 3 days #12 10/11/24 Unknown Rx tabs meloxicam 15 mg tablet 15 mg PO DAILY 12/01/24 Unkn own History Allergy/AdvReac Type Severity Reaction Status Date / Time atorvastatin (From Lipitor) AdvReac Severe mylagias Verified 12/13/24 09:36 evolocumab (From Repatha AdvReac Severe Blurred Verified 12/13/24 09:36 SureClick) vision metoprolol AdvReac Severe Rash Verified 12/13/24 09:36 hydrocodone bitartrate (From AdvReac Intermediate Itching Verified 12/13/24 09:36 Vicodin) pravastatin AdvReac GI upset Verified 12/13/24 09:36 and sore mouth Family History Mother , age 64 CAD (coronary artery disease) Rheumatic fever Brother CAD (coronary artery disease) Surgical History H/O shoulder surgery History of colonoscopy (~10/2019) Hx of abdominal surgery (~10/2019) Hx of hand surgery History of coronary artery stent placement (11/03/23) Social History Smoking Status: Never smoker alcohol intake: current alcohol intake frequency: a few times a month substance use type: does not use caffeine: Yes Type: coffee Number of servings: 1 Review of Systems (Anesthesia) ROS Narrative System reviewed and no additional complaints, except as documented. 12/13/24 1031 vamshi JIN> Date _ Jacob Mckinney MD [facility] Signature: Date CC: ~ Signed [facility]07-08-2025 [facility] Medical Records Department [address] [place] [address] History Physical Exam 12/13/24925 MR#: [id number] Acct: [id number] Name: ARYAN ROBERTS Rep #: [id number] : 1965 59 From: Peter Perea MD PCP: Dr. Cosme Berger MD Status:[facility] Location: [place] [address] History and Physical Date of Admission: 12/13/24 Intake Vital Signs 10/18/2510:02 12/01/2507:22 Height 5 ft 7 in 5 ft 7 in Weight: 227 lb 231 lb 6 oz BMI 35.5 36.2 BP 134/87 H Blood Pressure Location Rt brachial Position Sitting Respiration 18 Pulse 92 Pulse Source Monitor Temp 97.2 F L Temp Source Temporal Pulse Oximetry (%) 99 Oxygen Delivery Method room air Intake Visit Reasons: UMBILICAL HERNIA Chief Complaint: umbilical hernia Is patient in pain?: Yes Allergies atorvastatin (From Lipitor) Adverse Reaction (Severe, Verified 11/30/24 08:23) mylagiasevolocumab (From Repatha SureClick) Adverse Reaction (Severe, Verified 11/30/24 08:23) Blurred visionmetoprolol Adverse Reaction (Severe, Verified 11/30/24 08:23) Rashhydrocodone bitartrate (From Vicodin) Adverse Reaction (Intermediate, Verified 11/30/24 08:23) Itchingpravastatin Adverse Reaction (Verified 11/30/24 08:23) GI upset and sore mouth Medications ???Medication ???Instructions ???Recorded ???Confirmed ???Type fenofibrate 160 mg tablet 160 mg PO DAILY CHOLESTEROL 06/12/23 11/30/24 Hist ory aspirin 81 mg chewable tablet 81 mg PO DAILY HEART HEALTH 10/29/23 11/30/24 Hist ory nitroglycerin 0.4 mg sublingual 0.4 mg sublingual DAILY PRN CHEST 10/29/23 5 History tablet PAIN clopidogrel 75 mg tablet 75 mg PO DAILY #90 TABLETS 01/18/24 11/30/24 Rx doxazosin 4 mg tablet 4 mg PO QHS #90 TABLETS 01/18/24 11/30/24 Rx ezetimibe 10 mg tablet 10 mg PO DAILY #90 TABLETS 05/16/24 11/30/24 Rx artificial tears(hypromellose) 0.3 1 drp EACH EYE BID PRN dry eye(s) 10/11/24 5 History % eye drops cholecalciferol (vitamin D3) 50 50 mcg PO QODAY 10/11/24 11/30/24 History mcg (2,000 unit) capsule finasteride 5 mg tablet 5 mg PO DAILY 10/11/24 11/30/24 History folic acid 800 mcg tablet 800 mcg PO QHS 10/11/24 11/30/24 History losartan 25 mg tablet 25 mg PO DAILY 10/11/24 11/30/24 History Held on 10/11/24. Instructions: PT BP HAS BEEN LOW, SO PT HASNT BEEN TAKING mecobalamin (vitamin B12) 500 mcg 500 mcg PO DAILY 10/11/24 11/30/24 History chewable tablet methocarbamol 500 mg tablet 500 mg PO TID PRN back pain 3 days 10/11/24 Rx #10 tabs omeprazole 20 mg capsule,delayed 20 mg PO DAILY 10/11/24 11/30/24 History release oxycodone 5 mg tablet 5 mg PO Q6H PRN pain 3 days #12 10/11/24 11/30/24 Rx tabs clindamycin phosphate 1 % lotion topical 10/14/24 11/30/24 History duloxetine 60 mg capsule,delayed 120 mg PO DAILY 10/14/24 11/30/24 History release PFSH Medical History (Updated 11/30/24 @ 08:22 by Corinna Agarwal LPN) Umbilical hernia Coronary artery 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) Essential hypertension Inflammatory polyarthropathy BPH (benign prostatic hyperplasia) GERD (gastroesophageal reflux disease) 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 Hypercholesterolemia Non-STEMI (non-ST elevated myocardial infarction) Surgical History History of colonoscopy ( 10/2019) Hx of abdominal surgery ( 10/2019) Hx of hand surgery History of coronary artery stent placement (11/03/23) Family History Mother , age 64 CAD (coronary artery disease) Rheumatic feverBrother CAD (coronary artery disease) Social History Smoking Status: Never smoker alcohol intake: current alcohol intake frequency: a few times a month substance use type: does not use caffeine: Yes Type: coffee Number of servings: 1 HPI HPI HPI: Patient has a small umbilical hernia that has been there for about a month. He reports that sometimes it grows larger. It is painful and it causes tenderness that radiates down toward his pubic bone ROS General General: Yes weight change (gain); No appetite, fatigue, colon cancer, breast cancer or weakness HEENT HEENT: No difficulty swallowing, eye injury, eye surgery, swollen glands or hoarseness Endo Endocrine: No thyroid disease, diabetes mellitus, thyroid cancer, Hair loss, heat intolerance or cold intolerance Skin Skin: No rash or changing moles Musc Musculoskeletal: Yes back problems and arthritis; No rheumatoid arthritis, gout or joint pain Cardio Cardiovascular: Yes heart disease, high blood pressure, heart attack and heart (more content not included)...[facility]07-02-2025 Progress note [facility] [address] [place] [address] OFFICE VISIT Date of Service: 12/07/24 MR#: [id number] Acct: [id number] Name: RAYAN ROBERTS Rep #: [id number] : 1965 Provider: Dr. Bella Nagel MD Age/Sex: 59/M Location: [facility] Status: Signed Intake Vital Signs 10/18/24 11:02 11/30/24 08:22 Height 5 ft 7 in 5 ft 7 in Weight: 231 lb 6 oz BMI 36.2 BP 134/87 H Blood Pressure Location Rt brachial Position Sitting Respiration 18 Pulse 92 Pulse Source Monitor Temp 97.2 F L Temp Source Temporal Pulse Oximetry (%) 99 Oxygen Delivery Method room air Intake Visit Reasons: LUMBAR SPINE Chief Complaint: MRI Review Accompanied by: Self Is patient in pain?: Yes Pain scale (1-10): 8 Allergies atorvastatin (From Lipitor) Adverse Reaction (Severe, Verified 12/07/24 13:23) mylagias evolocumab (From Repatha SureClick) Adverse Reaction (Severe, Verified 12/07/24 13:23) Blurred vision metoprolol Adverse Reaction (Severe, Verified 12/07/24 13:23) Rash hydrocodone bitartrate (From Vicodin) Adverse Reaction (Intermediate, Verified 12/07/24 13:23) Itching pravastatin Adverse Reaction (Verified 12/07/24 13:23) GI upset and sore mouth Medications ?Medication ?Instructions ?Recorded ?Confirmed ?Type fenofibrate 160 mg tablet 160 mg PO DAILY CHOLESTEROL 06/12/23 12/07/24 History aspirin 81 mg chewable tablet 81 mg PO DAILY HEART HEA LTH 10/29/23 12/07/24 History clopidogrel 75 mg tablet 75 mg PO DAILY #90 TABLETS 0 01/18/24 12/07/24 Rx doxazosin 4 mg tablet 4 mg PO QHS #90 TABLETS 01/0612/07/24 Rx ezetimibe 10 mg tablet 10 mg PO DAILY #90 TABLETS 1 07/17/23 12/07/24 Rx artificial tears(hypromellose) 0.3 1 drp EACH EYE BID PRN dry eye(s) 10/11/24 12/07/24 History % eye drops cholecalciferol (vitamin D3) 50 50 mcg PO QODAY 12/07/24 History mcg (2,000 unit) capsule finasteride 5 mg tablet 5 mg PO DAILY 10/11/2412/07 History folic acid 800 mcg tablet 800 mcg PO BID 10/11/2408/02 History losartan 25 mg tablet 25 mg PO DAILY 10/11/2408/02 History Held on 10/11/24. 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 Bowen Nagel MD 12/07/24 5729. Part of today?s visit was documented by Vivian Flood ATC, acting as scribe. ARYAN ROBERTS is a 59 year old M here today for lumbar spine MRI review. Patient rates his pain 01/15 and states the pain medications are not helping at all. He states he will occasionally take 1/2 of the oxycodone but he doesn't like how itmakes him feel and it keeps him awake. He was also prescribedmethocarbamol and he is unable to tell if it gives him relief. He states in order to sit down he has to lean to the right. He struggles to sit down for a long period of time. Hedescribes the pain from his left buttocks down to the foot. He states laying down and walking too much increases his pain.He states he is unable to go to the grocery store without having an increase in his pain. Patient is scheduled to have a hernia surgery on Thursday12/13/2024 with surgical associates. The patient is a 59-year-old male presenting with chronic back pain. The back pain has been persistent for over 20 years, primarily localized to the lower back, and has recently started radiating down the left leg to the foot, causing significant discomfort and mobility issues. The pain exacerbatesduring sleep and physical activities, with episodes of severe pain leading to falls and immobility. Interventions have included cortisone injections administered by the family physician, which provided temporary relief for muscle spasms but did not alleviate the pain. The patient has also undergonevarious pain management treatments, including epidural injections, which were discontinued due to lack of efficacy. Recent imaging studies revealed signs of Diffuse Idiopathic Skeletal Hyperostosis (DISH), contributing to the patient's symptoms. The patient also reports severe carpal tunnel syndrome, diagnosed previously, with symptoms of numbness and dexterity issues, particularly affecting the left hand. No interventions have been undertaken for carpal tunnel syndrome to date. Additionally, the patient is scheduled for hernia surgery, which is causing localized pain around the belly button. - Musculoskeletal: Reports chronic lower back pain radiating to the left leg, exacerbated by physical activity and sleep. Denies any recent trauma. - Neurological: Reports numbness and dexterity issues in the left hand, with a history of severe carpal tunnel syndrome. Denies headaches or dizziness. - Gastrointestinal: Reports localized pain around the belly button due to a hernia. Denies nausea or vomiting. Attestation: Documentation on this patient encounter was supported using ambient scribe technology/ voice AI technology. The patient consented to recording for the purpose of documenting the encounter. Provider reviewed content of the generatednote prior to signature. 10/18/2024: ARYAN ROBERTS is a 59 year old M here today for low back pain that he has been having for 20 years. He states that within the last 2 weeks his pain has gotten severely worse. He was in the ED for a few days due to the pain and was given morphine. His pain does radiate down both legs but isworse on the left down into his foot. The left-sided symptoms extend down the back and the lateral side of the leg without worsening at the knee. On the left side he willalso get numbness into the foot. Right sided symptoms is lesser however he still has pain that extends down the back of his rightleg and the lateral side of the thigh and stops several inches above the knee. He denies any pain that extends further down. Sitting does make his pain worse and he is more comfortable standing. 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 He did take Ibuprofen which helped at the time but then it stopped helping. Patient denies any known injury. He does get nauseous due to the pain. He has been getting dizziness and lightheadedness and is unsure if that has anything to do with his spineor if it is unrelated. He has seen a chiropractor for his back pain which seemed to make his pain worse. He does have numbness in his legs bilaterally. He has tried oxycodone for the pain which didn't help, he also tried prednisone and a muscle relaxer which also hasn't helped. He denies previous back surgery. He has done PT in the past many years ago which made his pain worse. He did have an injection in his back that was done by his PCP about 2 months ago which helped with the muscle spasms but not with pain. He did have imaging many years but not recently. He has tried ibuprofen and Tylenol with nobenefit. The patient was also given a prescription of prednisone which he says gave him some shortness of breath and so he no longer takes that. The patient was given multiple different medications including oxycodone and methocarbamol none of which gave him any benefit. Takes Plavix for stents and 2 prior heart attacks. No diabetes. Ortho Exam General General: Yes no acute distress Neurologic: Yes alert and Yes oriented x3 Spine SPINE TESTING CERVICAL THORACIC LUMBAR Musculoskeletal Strength 0=absent - 5=normal Details: Examination the back shows midline paraspinal tenderness bilaterally in lower lumbar spine. Neurologic motion of upper and lower extremity shows 5 x 5 power in all groups normal sensations in all dermatomes. Travis's is positive on the right. Romberg's is positive. Tandem gait shows mild imbalance. Coding Level of Care Code Off vis,est,level 4 Diagnoses Lumbar radiculopathy M54.16 Foraminal stenosis of lumbar region M48.061 Cervical myelopathy G95.9 Time Spent (min) 35 Assessment and Plan Assessment and Plan (1) Lumbar radiculopathy: Status: Acute (2) Foraminal stenosis of lumbar region: Status: Acute (3) Cervical myelopathy: Status: Acute Plan Reviewed x-rays and MRI of lumbar spine done recently. These show evidence of DISH. Reduced disc height and disc degeneration L5-S1 with mild foraminal stenosis noticed. Screening images cervical spine showed cervical multilevel disc degeneration with possible cord compression. - Imaging: X-ray and MRI of the lower back show signs of Diffuse Idiopathic Skeletal Hyperostosis (DISH) with no significant nerve compression. 1. Chronic back pain - Recommend epidural steroid injections under fluoroscopy to address nerve impingement and inflammation. 2. Severe carpal tunnel syndrome - Consider further evaluation and potential surgical intervention if symptoms persist after neck MRI results. 3. Diffuse Idiopathic Skeletal Hyperostosis DISH) - Monitor progression and manage symptoms with physical therapy and pain management strategies. 4. Hernia - Proceed with scheduled surgical repair to alleviate localized pain. 5. Cervical myelopathy - Patient has progressive dexterity issues with difficulty tying shoelaces buttoning shirts, dropping things from hand. Discussed possibility of overlapping symptoms of carpal tunnel syndrome. Patient does not have any recent imaging EMG and says the entire hands feels numb. Patient also has earlybalance deficits and hyperreflexia's history of cervical region. Discussed getting cervical spine MRIto assess cord compression. - Follow up with pain management for epidural injections. - Schedule and complete neck MRI as discussed. - Attend hernia surgery as scheduled and follow post-operative care instructions. - Monitor symptoms of carpal tunnel syndrome and report any worsening. Discussed imaging findings. Patient has L5-S1 disc degeneration mild foraminal stenosis but severe left lower extremity radiculopathy. Discussed treatment options such as physical therapy and injections. Patient is agreeable to injections. Pain consult was placed. Patient will see me back after MRIcervical spine is complete. Patient was in agreement. 12/07/24 1444 MD> Date _ Bowen Nagel MD Cos[employer] Signature: Date (if applicable) CC: Dr. Cosme Berger MD ~ [facility]07-02-2025 Progress note Author Bowen Nagel [facility] Note Date/Time December 07, 2024 2:43p m [facility] [address] [place] [address] OFFICE VISIT Date of Service: 12/07/24 MR#: [id number] Acct: [id number] Name: ARYAN ROBERTS Rep #: [id number] : 1965 Provider: Dr. Bella Nagel MD Age/Sex: 59/M Location: [facility] Status: Signed Intake Vital Signs 10/18/24 11:02 11/30/24 08:22 Height 5 ft 7 in 5 ft 7 in Weight: 231 lb 6 oz BMI 36.2 BP 134/87 H Blood Pressure Location Rt brachial Position Sitting Respiration 18 Pulse 92 Pulse Source Monitor Temp 97.2 F L Temp Source Temporal Pulse Oximetry (%) 99 Oxygen Delivery Method room air Intake Visit Reasons: LUMBAR SPINE Chief Complaint: MRI Review Accompanied by: Self Is patient in pain?: Yes Pain scale (1-10): 8 Allergies atorvastatin (From Lipitor) Adverse Reaction (Severe, Verified 12/07/24 13:23) mylagias evolocumab (From Repatha SureClick) Adverse Reaction (Severe, Verified 12/07/24 13:23) Blurred vision metoprolol Adverse Reaction (Severe, Verified 12/07/24 13:23) Rash hydrocodone bitartrate (From Vicodin) Adverse Reaction (Intermediate, Verified 12/07/24 13:23) Itching pravastatin Adverse Reaction (Verified 12/07/24 13:23) GI upset and sore mouth Medications ?Medication ?Instructions ?Recorded ?Confirmed ?Type fenofibrate 160 mg tablet 160 mg PO DAILY CHOLESTEROL 06/12/23 12/07/24 History aspirin 81 mg chewable tablet 81 mg PO DAILY HEART HEA LTH 10/29/23 12/07/24 History clopidogrel 75 mg tablet 75 mg PO DAILY #90 TABLETS 0 01/18/24 12/07/24 Rx doxazosin 4 mg tablet 4 mg PO QHS #90 TABLETS 01/0612/07/24 Rx ezetimibe 10 mg tablet 10 mg PO DAILY #90 TABLETS 1 07/17/23 12/07/24 Rx artificial tears(hypromellose) 0.3 1 drp EACH EYE BID PRN dry eye(s) 10/11/24 12/07/24 History % eye drops cholecalciferol (vitamin D3) 50 50 mcg PO QODAY 12/07/24 History mcg (2,000 unit) capsule finasteride 5 mg tablet 5 mg PO DAILY 10/11/2412/07 History folic acid 800 mcg tablet 800 mcg PO BID 10/11/2408/02 History losartan 25 mg tablet 25 mg PO DAILY 10/11/2408/02 History Held on 10/11/24. 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 Bowen Nagel MD 12/07/24 5738. Part of today?s visit was documented by Vivian Flood ATC, acting as scribe. ARYAN ROBERTS is a 59 year old M here today for lumbar spine MRI review. Patient rates his pain 8/10 and states the pain medications are not helping at all. He states he will occasionally take 1/2 of the oxycodone but he doesn't like how itmakes him feel and it keeps him awake. He was also prescribed methocarbamol and he is unable to tell if it gives him relief. He states in order to sit down he has to lean to the right. He struggles to sit down for a long period of time. Hedescribes the pain from his left buttocks down to the foot. He states laying down and walking too much increases his pain. He states he is unable to go to the grocery store without having an increase in his pain. Patient is scheduled to have a hernia surgery on Thursday12/13/2024 with surgical associates. The patient is a 59-year-old male presenting with chronic back pain. The back pain has been persistent for over 20 years, primarily localized to the lower back, and has recently started radiating down the left leg to the foot, causing significant discomfort and mobility issues. The pain exacerbates during sleep and physical activities, with episodes of severe pain leading to falls and immobility. Interventions have included cortisone injections administered by the family physician, which provided temporary relief for muscle spasms but did not alleviate the pain. The patient has also undergone various pain management treatments, including epidural injections, which were discontinued due to lack of efficacy. Recent imaging studies revealed signs of Diffuse Idiopathic Skeletal Hyperostosis (DISH), contributing to the patient's symptoms. The patient also reports severe carpal tunnel syndrome, diagnosed previously, with symptoms of numbness and dexterity issues, particularly affecting the left hand. No interventions have been undertaken for carpal tunnel syndrome to date. Additionally, the patient is scheduled for hernia surgery, which is causing localized pain around the belly button. - Musculoskeletal: Reports chronic lower back pain radiating to the left leg, exacerbated by physical activity and sleep. Denies any recent trauma. - Neurological: Reports numbness and dexterity issues in the left hand, with a history of severe carpal tunnel syndrome. Denies headaches or dizziness. - Gastrointestinal: Reports localized pain around the belly button due to a hernia. Denies nausea or vomiting. Attestation: Documentation on this patient encounter was supported using ambient scribe technology/ voice AI technology. The patient consented to recording for the purpose of documenting the encounter. Provider reviewed content of the generatednote prior to signature. 10/18/2024: ARYAN ROBERTS is a 59 year old [...] the knee. On the left side he willalso get numbness into the foot. 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 He did take Ibuprofen which helped at the time but then it stopped helping. Patient denies any known injury. He does get nauseous due to the pain. He has been getting dizziness and lightheadedness and is unsure if that has anything to do with his spine or if it is unrelated. He has seen a chiropractor for his back pain which seemed to make his pain worse. He does have numbness in his legs bilaterally. He has tried oxycodone for the pain which didn't help, he also tried prednisone and a muscle relaxer which also hasn't helped. He denies previous back surgery. He has done PT in the past many years ago which made his pain worse. He did have an injection in his back that was done by his PCP about 2 months ago which helped with the muscle spasms but not with pain. He did have imaging many years but not recently. He has tried ibuprofen and Tylenol with nobenefit. The patient was also given a prescription of prednisone which he says gave him some shortness of breath and so he no longer takes that. The patient was given multiple different medications including oxycodone and methocarbamol none of which gave him any benefit. Takes Plavix for stents and 2 prior heart attacks. No diabetes. Ortho Exam General General: Yes no acute distress Neurologic: Yes alert and Yes oriented x3 Spine SPINE TESTING CERVICAL THORACIC LUMBAR Musculoskeletal Strength 0=absent - 5=normal Details: Examination the back shows midline paraspinal tenderness bilaterally in lower lumbar spine. Neurologic motion of upper and lower extremity shows 5 x 5 power in all groups normal sensations in all dermatomes. Travis's is positive on the right. Romberg's is positive. Tandem gait shows mild imbalance. Coding Level of Care Code Off vis,est,level 4 Diagnoses Lumbar radiculopathy M54.16 Foraminal stenosis of lumbar region M48.061 Cervical myelopathy G95.9 Time Spent (min) 35 Assessment and Plan Assessment and Plan (1) Lumbar radiculopathy: Status: Acute (2) Foraminal stenosis of lumbar region: Status: Acute (3) Cervical myelopathy: Status: Acute Plan Reviewed x-rays and MRI of lumbar spine done recently. These show evidence of DISH. Reduced disc height and disc degeneration L5-S1 with mild foraminal stenosis noticed. Screening images cervical spine showed cervical multilevel disc degeneration with possible cord compression. - Imaging: X-ray and MRI of the lower back show signs of Diffuse Idiopathic Skeletal Hyperostosis (DISH) with no significant nerve compression. 1. Chronic back pain - Recommend epidural steroid injections under fluoroscopy to address nerve impingement and inflammation. 2. Severe carpal tunnel syndrome - Consider further evaluation and potential surgical intervention if symptoms persist after neck MRI results. 3. Diffuse Idiopathic Skeletal Hyperostosis DISH) - Monitor progression and manage symptoms with physical therapy and pain management strategies. 4. Hernia - Proceed with scheduled surgical repair to alleviate localized pain. 5. Cervical myelopathy - Patient has progressive dexterity issues with difficulty tying shoelaces buttoning shirts, dropping things from hand. Discussed possibility of overlapping symptoms of carpal tunnel syndrome. Patient does not have any recent imaging EMG and says the entire hands feels numb. Patient also has earlybalance deficits and hyperreflexia's history of cervical region. Discussed getting cervical spine MRI to assess cord compression. - Follow up with pain management for epidural injections. - Schedule and complete neck MRI as discussed. - Attend hernia surgery as scheduled and follow post-operative care instructions. - Monitor symptoms of carpal tunnel syndrome and report any worsening. Discussed imaging findings. Patient has L5-S1 disc degeneration mild foraminal stenosis but severe left lower extremity radiculopathy. Discussed treatment options such as physical therapy and injections. Patient is agreeable to injections. Pain consult was placed. Patient will see me back after MRI cervical spine is complete. Patient was in agreement. 12/07/24 4636 <Electronically signed by Bowen Nagel MD> Date _ Bowen Nagel MD Cosigner Signature: Date (if applicable) CC: Dr. Cosme Berger MD ~ [employer] Work Phone: 1(573) 613-617505-09-2025 Evaluation note* Diagnosis Onset Date Resolution Status Admit Date Atherosclerotic heart diseas e absentee-shawnee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 chronic October 14, 2024 8:19am Essential hypertension chronic Ma y 2024 8:19am History of coronary artery s tent placement November 03, 2023 chronic October 14, 2024 8:19am Hypercholesterolemia chronic October 14, 2024 8:19am Coronary artery dissection June, inacti ve October 14, 2024 8:19am [facility] [employer] [facility] Work Phone: 1(204) 957-136705-09-2025 Evaluation note* Diagnosis Onset Date Resolution Status Admit Date Atherosclerotic heart diseas e absentee-shawnee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 chronic October 14, 2024 8:19am Essential hypertension chronic Ma y 2024 8:19am History of coronary artery s tent placement November 03, 2023 chronic October 14, 2024 8:19am Hypercholesterolemia chronic October 14, 2024 8:19am Coronary artery dissection June, inacti ve October 14, 2024 8:19am 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 with axial back pain witho acute October 18, 2024 10:44am Lumbar radiculopathy acute October 18, 2024 10:44am [employer] [facility] Work Phone: 1(960) 282-486805-09-2025 Evaluation note* Diagnosis Onset Date Resolution Status Admit Date Atherosclerotic heart diseas e absentee-shawnee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 chronic October 14, 2024 8:19am Essential hypertension chronic Ma y 2024 8:19am History of coronary artery s tent placement November 03, 2023 chronic October 14, 2024 8:19am Hypercholesterolemia chronic October 14, 2024 8:19am Coronary artery dissection June, inacti ve October 14, 2024 8:19am 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 with axial back pain witho acute October 18, 2024 10:44am Lumbar radiculopathy acute October 18, 2024 10:44am Umbilical hernia acute November 8:09am [facility] Work Phone: 1(410) 924-387105-09-2025 Evaluation note* Diagnosis Onset Date Resolution Status Admit Date Atherosclerotic heart diseas e absentee-shawnee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 chronic October 14, 2024 8:19am Essential hypertension chronic Ma y 2024 8:19am History of coronary artery s tent placement November 03, 2023 chronic October 14, 2024 8:19am Hypercholesterolemia chronic October 14, 2024 8:19am Coronary artery dissection June, inacti ve October 14, 2024 8:19am 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 with axial back pain witho acute October 18, 2024 10:44am Lumbar radiculopathy acute October 18, 2024 10:44am Umbilical hernia acute November 8:09am Cervical myelopathy acute December 07, 2024 1:13pm Foraminal stenosis of lumbar region acute December 07, 2024 1:13pm Lumbar radiculopathy acute December 07, 2024 1:13pm [facility] Work Phone: 1(437) 560-521903-15-2023 Hospital Discharge instructions Patient Education 08/20/2022 07:28:33 Discharge trigger MALAIKA ([id number]) [facility] Management Discharge Instructions POST PROCEDURE INSTRUCTIONS [...] bandaid dry and remove in 24 hours. [facility] 03-15-2023 Summary of episode note Discharge Instructions Thank you for allowing [facility] to assist you with your healthcare needs. [...] medication providers or retail pharmacies. Education Materials [facility] Discharge Instructions POST PROCEDURE [...] to receive it can visit one of [facility] vaccine clinics. There are many vaccine clinic locations within the [facility]. For locations and available times, please visit [email or web address] It is important to note that some COVID mobile vaccine clinics are held outdoors and may be canceled in rainy or stormy conditions. To learn more about pediatric vaccinations (ages 5-11), we invite you to visit the [facility] webpage. https://www.[facility].org/pages/7631-Tdfor-Clzztfujnbb-Otmvrynogq-Nfzjy-Mcu stions.htmlTo learn more about the COVID-19 vaccine, we invite you to visit the CDC website for a list of frequently asked questions. https://www.cdc.gov/coronavirus/2019-ncov/vaccines/faq.html [facility] Patient Portal Access Instructions: Stay connected with your healthcare team and access your personal medical information anytime with the [facility] Patient Portal.If you would like a full copy of your medical records, please contact the [facility] Medical Records Department, Thursday through Thursday between 8a.m. and 4:30p.m. Please follow the directions below to access the portal: 1.Access the email account you provided upon registration to the [facility].2.Look for an invitation email from [facility].3.Open the email and access the invitation link: Accept Invitation to [facility].Fill in the required walker to create your account. Sign into [email or web address] with your username and password that you [...] you will allow to register on the [facility] Patient Portal for access to your information. You can also access the [facility] Patient Portal on the [employer]. Simply click on Health Records under [employer] and then click on the [employer] logo. HOW TO SAFELY DISPOSE OF PRESCRIPTION [...] Call your local pharmacy or go to http://bit.ly/2E9Cl6f to find one close to you.3.Make use of household items: Use cat litter or old coffee grounds to dispose medications if other options arenot available. Mix your drugs with these household products, seal them in an airtight container andthrow it into the garbage. Call [facility]: [phone] to be sure your drugs can be [...] COPY. Signatures Patient Education Materials Discharge trigger MALAIKA ([id number]) Medication Leaflets My discharge plan and instructions have been reviewed and explained to me and I,ARYAN ROBERTS understand my current condition and have read and understand these discharge instructions. I have received a written copy of the plan/instructions. If I have questions, I am aware that I should contact my doctor. Patient/Supervisor Pre Wave Signature: Date/Time: Relationship to Patient: Witness Name/Signature: Date/Time: [facility] [id number] History and physical note History and Physical [...] tab(s), 0 Refill(s), 08/15/22 8:40:00 EST, Pharmacy: [id number], Myalgia Chronic pain, 170, cm, 08/05/22 8:07:00 EST, Height PM TPI 3 or more Muscles 2. Chronic pain 20-year history of chronic [...] tab(s), 0 Refill(s), 08/15/22 8:40:00 EST, Pharmacy: [id number], Myalgia Chronic pain, 170, [...] CONSTANTINO BERGMAN MD on 08/20/2022 07:28 AM [facility] Pain [id number] Evaluation note* Diagnosis Onset Date Resolution Status Coronary artery dissection June, acute Dizziness acute Atherosclerotic heart diseas e absentee-shawnee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 chronic Essential hypertension chron ic History of coronary artery stent placement November 25, 2016 chronic Hypercholesterolemia chronic [facility] Work Phone: Consult note Author Rhiannon Mcclellan [facility] Note Date/Time December 13, 2024 11:39 am [facility] Medical Records Department [address] [place] [address] Anesthesia Postop Eval I 12/13/24 1136 MR#: [id number] Acct: [id number] Name: GRUPOPURNIMAARYAN Sera Rep #:[id number] : 1965 59 From: Rhiannon Zendejas RNA PCP: Dr. Cosme Berger MD Status:R EG [facility] Y Race: C Location: [place] [address] Anesthesia: Postop Eval I Current Vital Signs Temperature: 97.4 F Pulse Rate: 75 Blood Pressure: 143/84 Respiratory Rate: 16 Pulse Ox: 97 Oxygen Delivery Method: Room Air Assessment Airway patent: No Spontaneous unlabored respirations: Yes Mental status: Awake and Calm nausea: No Vomiting: No Anesthesia Complication: No Fluid Hydration Crystalloid volume administer (ml): 500 Total IV fluid infused: 500 Progress Note Anesthesia document: Postop Eval 1 completed: Yes 12/13/24 1139 <Electronically signed by Rhiannon Mcclellan [employer] SUPERINTENDENT> Date _ Rhiannon Archer Signature: Date CC: ~ Signed [facility] Work Phone: Discharge summary Author Peter Perea [facility] Note Date/Time December 13, 2024 11:27 am [facility] Medical Records Department [address] [place] [address] Instructions for Home/Discharge Instructions 12/13/24 1125 MR#: [id number] Acct: [id number] Name: ARYAN ROBERTS Rep #:[id number] : 1965 59 From: Peter franklin MD PCP: Dr. Cosme Berger MD Status:R [facility] Discharge Instructions Procedure Hernia Diet Discharge Diet: Light diet - advance as tolerated Activity Discharge Activity: May Not Drive (for 2-3 days or while taking narcotic pain meds.) and May Shower (with the bandage in place 1-2 days after surgery.) Lifting Restrictions: 20 pounds for 4 weeks. Additional Activity Instructions:: Climbing stairs is fine, walking is encouraged. Sitting in bed may be uncomfortable. Sitting up using your lateral muscles (sitting up sideways) is usually more comfortable. Do not drive, work heavy equipment of sign legal documents for 24 hours. Pain medications may cause nausea, you should typically eat light foods as you take your pain medications. Pain medications may also cause constipation. If you have difficulty with this, discuss with your doctor. Alternate ibuprofen and Tylenol for pain control, oxycodone for breakthrough pain. Resume aspirin and Plavix tomorrow Dressing / Incision Call your doctor if your incision/area has: Continuous Slow Oozing, Sudden Increased Bleeding, Increased Pain/ Swelling, Increased Redness and Foul Smelling Discharge Call your doctor if you observe: Fever of 101 or Higher Suture Line Care: Avoid Pulling/Pushing and Avoid Pinching/Bending Remove Dressing in: 3 days (Remove clear bandages in 2 days, remove Steri- Stripsin 7 to 10 days.) Cleanse incision/area with: Soap & Water Follow Up Care Please Follow Up With: Peter Perea MD When: Please call to schedule 2 week follow up appointment. [phone] Test Results: Test results from this visit will be discussed in further detail at your follow- up appointment, if applicable. Discharge Plan Admission Attending Provider: Peter Perea Primary Care Provider: Cosme Berger Instructions Print Language: Kosovan Discharge Orders/Prescriptions Prescriptions: New oxycodone 5 mg Tablet 5 - 10 mg PO Q4H PRN PRN (Reason: Pain Score 4-10) 5 Days Qty: 14 0RF No Action fenofibrate 160 mg tablet 160 mg PO DAILY oxycodone 5 mg tablet 5 mg PO Q6H PRN (Reason: pain) 3 Days Qty: 12 0RF methocarbamol 500 mg tablet 500 mg PO TID PRN (Reason: back pain) 3 Days Qty: 10 0RF finasteride 5 mg tablet 5 mg PO DAILY losartan 25 mg tablet 25 mg PO DAILY Patient Comments: HAS BEEN TAKING 12.5 MG DAILY artificial tears(hypromellose) 0.3 % drops 1 drp EACH EYE BID PRN (Reason: dry eye(s)) cholecalciferol (vitamin D3) 50 mcg (2,000 unit) capsule 50 mcg PO QODAY Rx Instructions: pt takes at night folic acid 800 mcg tablet 800 mcg PO BID meloxicam 15 mg tablet 15 mg PO DAILY aspirin 81 mg tablet,chewable 81 mg PO DAILY doxazosin 4 mg tablet 4 mg PO QHS Qty: 90 3RF clopidogrel 75 mg tablet 75 mg PO DAILY Qty: 90 3RF ezetimibe 10 mg tablet 10 mg PO DAILY Qty: 90 3RF Referrals / Follow Up: Cosme Berger MD [Primary Care Provider] - Disposition Disposition (needs filled in before D/C Order can be placed): Home, Self Care 12/13/24 1127<Electronically signed by Peter Perea MD>Peter Perea MD CC: Dr. Cosme Berger MD ~ Signed [facility] Work Phone: Evaluation + Plan note Future [...] 07/07/22 * XR Spine Lumbar AP/LAT/FLEX/EXT 07/07/22 [facility] Evaluation + Plan note Future Appointments Appointment Date:08/05/2022 08:00:00 AM Scheduled Provider:CONSTANTINO BERGMAN MD Location:PM Office Appointment Type:PM OV Diagnostic Tests Pending * Rheumatoid Factor 07/08/22 * Antinuclear Antibody Screen, Serum 07/08/22 [facility] Evaluation + Plan note Future Appointments Appointment Date:09/26/2022 09:00:00 AM Scheduled Provider:CONSTANTINO BERGMAN MD Location:PM Office Appointment Type:PM OV [facility] Evaluation noteNo assessment information available [facility] Work Phone: Hospital course Narrative No data available for this section [facility] Hospital Discharge instructions No data available for this section [facility] progress note No data available for this section [facility] reason for referral (narrative)No reason for referral [facility] Work Phone: Summary Purpose Family History No Family History Records Found Relationship Condition Age at Onset Recorded Date/T chad mother Coronary artery disease Unknown Rheumatic fever Unknown brother Coronary artery disease Unknown Advance Directives No Advanced Directives Records Found Advance Directive Response Recorded Date/ Time Advance Directives No June 25, 2016 11:33am Living Will No August 22, 2018 6:22pm Power of Area Director Of Home Health Sales No August 22 6:22pm Advance Directive Response Recorded Date/ Time Advance Directives No June 25, 2016 10:33am Living Will No August 22, 2018 5:22pm Power of Area Director Of Home Health Sales No August 22 5:22pm Advance Directive Response Recorded Date/ Time Do you have a Healthcare Power of Area Director Of Home Health Sales? No October 11, 2024 9:17am Advance Directives No June 25, 2016 11:33am Advance Directive Response Recorded Date/ Time Do you have a Healthcare Power of Area Director Of Home Health Sales? No October 11, 2024 9:17am Do you have a Healthcare Power of Area Director Of Home Health Sales? No December 01, 2024 11:14am Advance Directives No June 25, 2016 11:33am Procedure Findings Note 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 Essential hypertension History of coronary artery stent placement Hypercholesterolemia Chief Complaint Admit Date CHRONIC BACK PAIN October 11, 2024 8:27am s/p ER but something still not right M ay 2024 8:19am LUMBAR SPINE October 18, 2024 10:44 am RM 1 October 18, 2024 11:20 am Reason for Visit Admit Date Atherosclerotic heart diseas e absentee-shawnee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 October 14, 2024 8:19am Essential hypertension October 14, 2024 8:1 9am History of coronary artery stent placeme nt October 14, 2024 8:19am Hypercholesterolemia October 14, 2024 8:19a m Coronary artery dissection October 14, 2024 8:19am Chief Complaint Admit Date CHRONIC BACK PAIN October 11, 2024 8:27am s/p ER but something still not right M ay 2024 8:19am LUMBAR SPINE October 18, 2024 10:44 am RM 1 October 18, 2024 11:20 am Pain November 26, 2024 10:4 6am UMBILICAL HERNIA November 30, 2024 8:09 am Reason for Visit Admit Date Atherosclerotic heart diseas e absentee-shawnee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 October 14, 2024 8:19am Essential hypertension October 14, 2024 8:1 9am History of coronary artery stent placeme nt October 14, 2024 8:19am Hypercholesterolemia October 14, 2024 8:19a m Coronary artery dissection October 14, 2024 8:19am 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 with axial back pain witho October 18, 2024 10:44am Lumbar radiculopathy October 18, 2024 10:4 4am Reason for Visit Admit Date Atherosclerotic heart diseas e absentee-shawnee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 October 14, 2024 8:19am Essential hypertension October 14, 2024 8:1 9am History of coronary artery stent placeme nt October 14, 2024 8:19am Hypercholesterolemia October 14, 2024 8:19a m Coronary artery dissection October 14, 2024 8:19am 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 with axial back pain witho October 18, 2024 10:44am Lumbar radiculopathy October 18, 2024 10:4 4am Umbilical hernia November 30, 2024 8:09 am Chief Complaint Admit Date CHRONIC BACK PAIN October 11, 2024 8:27am s/p ER but something still not right M ay 2024 8:19am LUMBAR SPINE October 18, 2024 10:44 am RM 1 October 18, 2024 11:20 am Pain November 26, 2024 10:4 6am UMBILICAL HERNIA November 30, 2024 8:09 am LUMBAR SPINE December 07, 2024 1:13p m Reason for Visit Admit Date Atherosclerotic heart diseas e absentee-shawnee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 October 14, 2024 8:19am Essential hypertension October 14, 2024 8:1 9am History of coronary artery stent placeme nt October 14, 2024 8:19am Hypercholesterolemia October 14, 2024 8:19a m Coronary artery dissection October 14, 2024 8:19am 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 with axial back pain witho October 18, 2024 10:44am Lumbar radiculopathy October 18, 2024 10:4 4am Umbilical hernia November 30, 2024 8:09 am Cervical myelopathy December 07, 2024 1:13p m Foraminal stenosis of lumbar region December 07, 2024 1:13pm Lumbar radiculopathy December 07, 2024 1:13 pm Chief Complaint Admit Date CHRONIC BACK PAIN October 11, 2024 8:27am s/p ER but something still not right M ay 2024 8:19am LUMBAR SPINE October 18, 2024 10:44 am RM 1 October 18, 2024 11:20 am Pain November 26, 2024 10:4 6am UMBILICAL HERNIA November 30, 2024 8:09 am LUMBAR SPINE December 07, 2024 1:13p m Hernia, Umbilical Repair December 13, 2024 9:06am Hernia, Umbilical Repair December 13, 2024 9:26am Additional Source Comments (unrecognized sect ion and content) No Status Records FoundNo Status Records FoundNo Status Records FoundNo Status Records Found INFORMATION SOURCE (unrecogn ized section and content) DATE CREATED AUTHOR 11/27/2017 [facility] DATE CREATED AUTHOR AUTHOR'S ORGANIZ ATION 08/02/2020 [facility] DATE CREATED AUTHOR AUTHOR'S ORGANIZ ATION 11/29/2022 [facility] ([place] DATE CREATED AUTHOR AUTHOR'S ORGANIZ ATION 12/16/2024 [facility] Goals (unrecognized section and content) Goals may [...] Member Role: Primary Care Physician Address: Address: [address] [place] [address] [address] ELVIS CO[address] Care Team Related Persons Name: SUZIE FAY Care Team Personnel Name: COSME BERGER MD Position: P3 Physician - Family Medicine Member Role: Primary Care Physician Address: Address: [address] [place] [address] DR ELVIS COLLINS [address] Care Team Related Persons Name: SUZIE FAY Patient Care team informatio n (unrecognized section and content) Team Status: Active Member Role Status Dates Dr. Cosme Berger MD Family Provider Active Dr. Cosme Berger MD Primary Care Provider Active Team Status: Inactive Member Role Status Dates Dr. Cosme Berger MD Primary Care P rovider, Attending Provider, Referring Provider Active Team Status: Active Member Role Status Dates Dr. Cosme Berger MD Primary Care Provider Active Team Status: Inactive Member Role Status Dates Dr. Cosme Berger MD Primary Care Provider Active Start: July 14, 2024 End: July 14, 2024 Jamia Wayne Attending Provider Active Start : July 14, 2024 End: July 14, 2024 Jamia Wayne Referring Provider Active Start : July 14, [...] 14, 2024 End: October 14, 2024 Angie Hall PA, PA Attending Provider Active Start: October 14, [...] 2024 End: October 18, 2024 Team Status: Active Member Role Status Dates Dr. Cosme Berger MD Primary Care Provider Active Start: November 26, 2024 DAVIE Zuñiga Attending Provider Active Star t: November 26, 2024 DAVIE Zuñiga Referring Provider Active Star t: November 26, 2024 Team Status: Inactive Member Role Status Dates Dr. Cosme Berger MD Primary Care Provider Active Start: November 30, 2024 End: November 30, 2024 Dr. Cosme Berger MD Referring Provider Active Start: November 30, 2024 End: November 30, 2024 Dr. Peter Perea MD Attending Provider Active Start: November 30, 2024 End: November 30, 2024 Team Status: Inactive Member Role Status Dates Dr. Cosme eBrger MD Primary Care Provider Active Start: November 26, 2024 End: November 26, 2024 DAVIE Zuñiga Attending Provider Active Star t: November 26, 2024 End: November 26, 2024 DAVIE Zuñiga Referring Provider Active Star t: November 26, 2024 End: November 26, 2024 Team Status: Active Member Role/Relationship Status Dates Dr. Cosme Berger MD Primary Care Provider Active Team Status: Inactive Member Role/Relationship Status Dates Dr. Cosme Berger MD Primary Care Provider Active Start: October 11, 2024 End: October 11, 2024 Dr. Flaquito Huerta DO Attending Provider Active Start: October 11, 2024 End: October 11, 2024 Dr. Flaquito Huerta DO Emergency Provider Active Start: October 11, 2024 End: October 11, 2024 Team Status: Inactive Member Role/Relationship Status Dates Dr. Cosme Berger MD Primary Care Provider Active Start: October 14, 2024 End: October 14, 2024 Dr. Cosme Berger MD Referring Provider Active Start: October 14, 2024 End: October 14, 2024 Angie BRODERICK, PA Attending Provider Active Start: October 14, 2024 End: October 14, 2024 Team Status: Inactive Member Role/Relationship Status Dates Dr. Cosme Berger MD Primary Care Provider Active Start: October 18, 2024 End: October 18, 2024 Dr. Cosme Berger MD Referring Provider Active Start: October 18, 2024 End: October 18, 2024 DAVIE Zuñiga Attending Provider Active Star t: October 18, 2024 End: October 18, 2024 Team Status: Inactive Member Role/Relationship Status Dates Dr. Cosme Berger MD Primary Care Provider Active Start: October 18, 2024 End: October 18, 2024 Dr. Juma Hamilton MD Attending Provider Active S tart: October 18, 2024 End: October 18, 2024 Team Status: Inactive Member Role/Relationship Status Dates Dr. Cosme Berger MD Primary Care Provider Active Start: November 26, 2024 End: November 26, 2024 DAVIE Zuñiga Attending Provider Active Star t: November 26, 2024 End: November 26, 2024 DAVIE Zuñiga Referring Provider Active Star t: November 26, 2024 End: November 26, 2024 Team Status: Inactive Member Role/Relationship Status Dates Dr. Cosme Berger MD Primary Care Provider Active Start: November 30, 2024 End: November 30, 2024 Dr. Cosme Berger MD Referring Provider Active Start: November 30, 2024 End: November 30, 2024 Dr. Peter Perea MD Attending Provider Active Start: November 30, 2024 End: November 30, 2024 Team Status: Inactive Member Role/Relationship Status Dates Dr. Cosme Berger MD Primary Care Provider Active Start: December 07, 2024 End: December 07, 2024 Dr. Cosme Berger MD Referring Provider Active Start: December 07, 2024 End: December 07, 2024 Dr. Bowen Nagel MD Attending Provider Active Start: December 07, 2024 End: December 07, 2024 Team Status: Inactive Member Role/Relationship Status Dates Dr. Cosme Berger MD Primary Care Provider Active Start: December 13, 2024 End: December 13, 2024 Dr. Peter Perea MD Attending Provider Active Start: December 13, 2024 End: December 13, 2024 Dr. Peter Perea MD Referring Provider Active Start: December 13, 2024 End: December 13, 2024 Team Status: Active Member Role/Relationship Status Dates Dr. Cosme Berger MD Primary Care Provider Active Start: December 13, 2024 Dr. Peter Perea MD Attending Provider Active Start: December 13, 2024 Dr. Peter Perea MD Referring Provider Active Start: December 13, 2024 Dr. Peter Perea MD Other Provider Active Start: December 13, 2024 FOR RECORDS PERTAINING TO PATIENTS WHO [...] BE BASED ON THE PRIMARY CLINICAL RECORDS. [facility]. provides no warranty or guarantee of the accuracy or completeness of information in this document.
== END | disposition home or self-care (01) ==
PROVIDERS: PCP Family Medicine; Referring Provider Orthopaedic Surgery Orthopaedic Surgery of the Spine; Visit Provider Orthopaedic Surgery Orthopaedic Surgery of the Spine
DX: G95.9 Disease of spinal cord, unspecified (principal)
CPT/HCPCS: 72141

== ENCOUNTER 2025-01-19 16:14 | Emergency (ER) | payer MEDICARE, SELFPAY ==
[2016-11-25 13:03] VITALS: BMI 32.7
[2025-01-19 16:22] VITALS: BP 128/92; PULSE 88; RESP 18; TEMP 36.4; O2SAT 96
--- NOTE | 2025-01-19 19:38 | ED.VIS.BACK ---
HPI History of Present Illness Chief Complaint: Back Informant: patient Narrative Narrative: Worsening low back pain for the past 2 weeks. Worse with prolonged sitting radiates down midline. He has had pain down both legs left greater than right. He has had symptoms for last 20 years. States years ago she has had injections through pain management at [place] that did help. He did not like side effects of gabapentin. He has been given steroid shots by his PCP through the muscle itself briefly. He is on oxycodone however he does not like taking it. He is followed by spine Dr. Nagel, seen in the office December 07 last month. He was referred to Dr. Woods, however appointment not till February 08. He had history of coronary stents last time approximately 17 months ago on baby aspirin and Plavix. Denies any other blood thinners. He states a year ago seen in the ED requiring morphine shots to help. Tried calling his PCP also cannot get appointment till next week. No loss of bowel or bladder control. He is not a diabetic. 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 [place]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 Hypercholesterolemia Non-STEMI (non-ST elevated myocardial infarction) Home Medications ?Medication ?Instructions ?Recorded ?Last Taken ?Type fenofibrate 160 mg tablet 160 mg PO DAILY CHOLESTEROL 06/12/23 12/13/24 History aspirin 81 mg chewable tablet 81 mg PO DAILY HEART HEALTH 10/29/23 12/07/24 History clopidogrel 75 mg tablet 75 mg PO DAILY #90 TABLETS 01/18/24 12/07/24 Rx doxazosin 4 mg tablet 4 mg PO QHS #90 TABLETS 01/18/24 10/10/24 Rx ezetimibe 10 mg tablet 10 mg PO DAILY #90 TABLETS 05/16/24 12/13/24 Rx artificial tears(hypromellose) 0.3 1 drp EACH EYE BID PRN dry eye(s) 10/11/24 Unknown History % eye drops cholecalciferol (vitamin D3) 50 50 mcg PO QODAY 10/11/24 10/10/24 History mcg (2,000 unit) capsule finasteride 5 mg tablet 5 mg PO DAILY 10/11/24 10/11/24 History folic acid 800 mcg tablet 800 mcg PO BID 10/11/24 10/11/24 History losartan 25 mg tablet 25 mg PO DAILY 10/11/24 11/01/24 History Held on 10/11/24. Instructions: PT BP HAS BEEN LOW, SO PT HASNT BEEN TAKING methocarbamol 500 mg tablet 500 mg PO TID PRN back pain 3 days 10/11/24 Unknown Rx #10 tabs oxycodone 5 mg tablet 5 mg PO Q6H PRN pain 3 days #12 10/11/24 Unknown Rx tabs meloxicam 15 mg tablet 15 mg PO DAILY 12/01/24 Unknown History oxycodone 5 mg tablet 5 - 10 mg (1 - 2 x 5 mg) PO Q4H 12/13/24 Unknown Rx PRN PRN Pain Score 4-10 5 days #14 tabs prednisone 20 mg tablet 60 mg (3 x 20 mg) PO DAILY #15 01/19/25 Unknown Rx TABLETS Allergy/AdvReac Type Severity Reaction Status Date / Time atorvastatin (From Lipitor) AdvReac Severe mylagias Verified 01/19/25 16:22 evolocumab (From Repatha AdvReac Severe Blurred Verified 01/19/25 16:22 SureClick) vision metoprolol AdvReac Severe Rash Verified 01/19/25 16:22 hydrocodone bitartrate (From AdvReac Intermediate Itching Verified 01/19/25 16:22 Vicodin) pravastatin AdvReac GI upset Verified 01/19/25 16:22 and sore mouth Family History Mother , age 64 CAD (coronary artery disease) Rheumatic fever Brother CAD (coronary artery disease) Surgical History H/O shoulder surgery History of colonoscopy (~10/2019) Hx of abdominal surgery (~10/2019) Hx of hand surgery History of coronary artery stent placement (11/03/23) Social History Smoking Status: Never smoker alcohol intake: current alcohol intake frequency: a few times a month substance use type: does not use caffeine: Yes Type: coffee Number of servings: 1 ROS ROS ED Constitutional Constitutional ED: Denies fever(s) Cardiovascular Cardiovascular: Denies chest pain Respiratory/Chest Respiratory/Chest: Denies cough Gastrointestinal Gastrointestinal: Denies diarrhea or vomiting Musculoskeletal Musculoskeletal: Reports back pain; Denies none Integumentary Denies rash or wounds Neurologic Neurologic: Denies weakness EXAM Physical Exam Const Vital Signs: 01/19/25 16:22 01/19/25 20:13 Temperature 97.5 F L 98.2 F Temperature Source Temporal Pulse Rate 88 82 Respiratory Rate 18 20 H Blood Pressure 128/92 H 132/94 H Blood Pressure Mean 104 106 Pulse Ox 96 96 Oxygen Delivery Method Room Air Positive well nourished and well developed Constitutional Narrative: Uncomfortable, nontoxic General Appearance ED: well developed HEENT normocephalic and atraumatic Eyes General Eye ED: Yes normal appearance of both eyes Neck full ROM Resp normal respiratory effort and normal air movement Cardio regular rate and regular rhythm GI soft to palpation Back/Spine Back/Spine Narrative: Tender palpation midline spine L3-L4 region. No step-offs. Straight leg test negative. 1+ patellar reflex bilaterally. Extremity normal to inspection and full ROM Neuro oriented x3 Skin no rashes or lesions noted and no wounds MDM MDM MDM Narrative Medical decision making narrative: Interventions / MDM: Differential diagnosis: DISH syndrome, degenerative changes lumbar spine, sciatica Diagnosis considered but do not suspect: No cauda equina symptoms. My EKG interpretation: N/A Imaging independently reviewed and interpreted by myself: N/A External documents reviewed: MRI of lumbar November of this year, degenerative changes noted more ligamentous flavum thickening L4-L5. Spine surgery note from December 07, 2024 diagnosed with DISH syndrome referred for plan injections Test considered but not ordered:N/A ED course: Patient cauda equina symptoms. Pain prolonged sitting concerns for more skeletal pain. He is ordered for IM morphine started on prednisone. 1939: Reevaluation states not much improvement. However tolerable at this time. He does have oxycodone at home he has muscle relaxers. I discussed plans for continued steroids to try to help with symptoms. I will try discussed with pain management for earlier follow-up for outpatient management. 1954: I discussed with office staff Stephanie, she moved the patient's appointment up to this Thursday at 9:45 AM. This were discussed with the patient. In addition with his antiplatelets with his stents over a year ago I discussed with him to call his innovation analyst to see if he can hold both medications in preparation of his visit for potential procedures. He states he held both for his umbilical surgery last month. He may not need to continue Plavix since it has been over a year. He understands this. I will send prednisone to his pharmacy for additional 5 days. Re-evaluation: stable Disposition discussed with patient/family/significant other: Patient Case discussed with consulting clinician: N/A This note was generated with [employer] dictation software. It may contain incorrect words, spelling, and punctuation that were not noted in checking the note before signing. Discharge Plan Triage Chief Complaint: Back ED Provider: Tru Brito Dx/Rx/DC Orders Clinical Impression: Acute exacerbation of chronic low back pain, DISH (diffuse idiopathic skeletal hyperostosis), Sciatica Instructions: ED Back Pain (Acute or Chronic) Prescriptions: New prednisone 20 mg tablet 60 mg PO DAILY Qty: 15 0RF No Action fenofibrate 160 mg tablet 160 mg PO DAILY oxycodone 5 mg tablet 5 mg PO Q6H PRN (Reason: pain) 3 Days Qty: 12 0RF methocarbamol 500 mg tablet 500 mg PO TID PRN (Reason: back pain) 3 Days Qty: 10 0RF finasteride 5 mg tablet 5 mg PO DAILY losartan 25 mg tablet 25 mg PO DAILY Patient Comments: HAS BEEN TAKING 12.5 MG DAILY artificial tears(hypromellose) 0.3 % drops 1 drp EACH EYE BID PRN (Reason: dry eye(s)) cholecalciferol (vitamin D3) 50 mcg (2,000 unit) capsule 50 mcg PO QODAY Rx Instructions: pt takes at night folic acid 800 mcg tablet 800 mcg PO BID meloxicam 15 mg tablet 15 mg PO DAILY oxycodone 5 mg Tablet 5 - 10 mg PO Q4H PRN PRN (Reason: Pain Score 4-10) 5 Days Qty: 14 0RF aspirin 81 mg tablet,chewable 81 mg PO DAILY doxazosin 4 mg tablet 4 mg PO QHS Qty: 90 3RF clopidogrel 75 mg tablet 75 mg PO DAILY Qty: 90 3RF ezetimibe 10 mg tablet 10 mg PO DAILY Qty: 90 3RF Primary Care Provider: Mendoza Harris Referrals: Antoni Woods MD [Med Staff - Active Staff] - 01/25/25 Mendoza Harris MD [Primary Care Provider] - Activity Restrictions/Additional Instructions: I discussed with the office of Dr. Woods, your appointment is to January 25 at 9:45 AM. Take prednisone as prescribed. If you are on meloxicam do not take this. Discussed with your cardiology office tomorrow if you could hold both your aspirin and your Plavix in preparation of your office visit for potential procedures. Discussed if you need to continue your Plavix as your stent was placed over a year ago. Print Language: Danish Disposition Disposition: Home, Self Care Discharge Date/Time: 01/19/25 20:15
[2025-01-19 20:13] VITALS: BP 132/94; PULSE 82; RESP 20; TEMP 36.8; O2SAT 96
--- OUTSIDE RECORDS SUMMARY | 2025-01-19 20:36 | XMS RPT_ITS | CCD ---
Author Organization [facility] CliniSyor Care Team Providers Care Business Analysis Specialist Name Role Phone DEBO, AIDAN A Unavailable Unavailable DEBO, AIDAN A Unavailable Unavailable DEBO, AIDAN A Unavailable Unavailable DEBO, AIDAN A Unavailable Unavailable DEBO, AIDAN A Unavailable Unavailable DEBO, AIDAN A Unavailable Unavailable MEZA, ANANTHA Unavailable Unavailable DEBO, AIDAN A Unavailable Unavailable MEZA, ANANTHA Unavailable Unavailable MEZA, ANANTHA Unavailable Unavailable Dr. Cosme Berger Primary Care Provider Dr. Cosme Berger Referring Provider [facility] SURGICAL ELASTIC KNITTER, SURGICAL ELASTIC KNITTER-Aashish Trent Attending Provider COSME BERGER MD Primary Care Physician [phone] PACHECO JIN, CONSTANTINO Austin Attending Unavail marge [...] Primary Care Provider Jamia Summers Attending Provider [phone] Jamia Summers Referring Provider Dr. Flaquito Huerta DO Attending Provider [phone] Dr. Flaquito Huerta DO Emergency Provider Dr. Cosme Berger MD Referring Provider Angie Hilliard Attending Provider Paola Funk Attending Provider [phone] Joy JIN, Dr. Dennison Attending Provider Steven JIN, Dr. Donaldson Primary Care Provider Paola Funk Referring Provider [phone] Eliazar JIN, Dr. Green Attending Provider Robe JIN, Dr. Wiseman Attending Provider Eliazar JIN, Dr. Green Referring Provider [phone] Eliazar JIN, Dr. Green Other Provider Steven, [...] Unavailable NadeenAmos Referring Unavailable NadeenAmos Attending Unavailable [place], Jamia Referring Unavailable [place], Jamia Attending Unavailable Steven, Cosme Primary Care [...] Translations: [HYDROCODONE-ACET AMINOPHEN] Drug Allergy 7 AOF [facility] Repository (10 sources) atorvastatin Drug Allergy 2 mylagias [facility] (10 sources) evolocumab; Translations: [evolocumab] Drug Allergy 2 headache, flu-like symptoms, arthritic pain, Blurred vision [facility] (11 sources) HYDROcodone; Translations: [hydrocodone bitartrate] Drug Allergy 2 Itching [facility] (13 sources) Pravastatin; Translations: [pravastatin] Drug Allergy 2 Adverse reaction to drug (disorder) [facility] (3 sources) Acetaminophen / HYDROcodone; Translations: [acetaminophen-hy drocodone] Drug Allergy [facility] (3 sources) celecoxib; Translations: [celecoxib] Drug Allergy Adverse reaction to drug (disorder) [facility] (3 sources) cloNIDine; Translations: [clonidine] Drug Allergy Adverse reaction to drug (disorder) [facility] (3 sources) DULoxetine; Translations: [duloxetine] Drug Allergy Adverse reaction to drug (disorder) [facility] (3 sources) FLUoxetine; Translations: [fluoxetine] Drug Allergy Reaction (qualifier value) [facility] (3 sources) gabapentin; Translations: [gabapentin] Drug Allergy Adverse reaction to drug (disorder) [facility] (3 sources) meloxicam; Translations: [meloxicam] Drug Allergy Adverse reaction to drug (disorder) [facility] (3 sources) Methocarbamol; Translations: [methocarbamol] Drug Allergy Adverse reaction to drug (disorder) [facility] (3 sources) montelukast; Translations: [montelukast] Drug Allergy Adverse reaction to drug (disorder) [facility] (3 sources) nabumetone; Translations: [nabumetone] Drug Allergy Reaction (qualifier value) [facility] (3 sources) pitavastatin; Translations: [pitavastatin] Drug Allergy [facility] (3 sources) predniSONE; Translations: [prednisone] Drug Allergy Adverse reaction to drug (disorder) [facility] (3 sources) pregabalin; Translations: [pregabalin] Drug Allergy Adverse reaction to drug (disorder) [facility] (3 sources) rosuvastatin; Translations: [rosuvastatin] Drug Allergy Adverse reaction to drug (disorder) [facility] (3 sources) Simvastatin; Translations: [simvastatin] [...] (7 sources) Metoprolol Drug Allergy 4 Rash [facility] (1 source) atorvastatin Drug Allergy 5 [facility] Rep[facility] (1 source) Metoprolol Drug Allergy 5 [facility] (1 source) Pravastatin Drug Allergy 5 [facility] Repository Medications Current Medications Medication Drug [...] effects., # 90 tab(s), 0 Refill(s), Pharmacy: [facility], 170, cm, 07/07/22 [...] Start: 11-19-2021 take 3000 [IU] by mo [facility] once daily Cholecalciferol (Vitamin D3) Active 3000 [...] 10-14-2024 Chronic Comment on above: PCI-FLORY-Mid LAD [id number], MId and Distal RCA with coronary artery [...] Test Name Value Interpretation Reference Range Facility MR/[id number] 12-14-2024 MR/POSTOPAN2 [facility] Medical Records Department [address] [place] [address] Anesthesia Postop Eval II 12/14/24 0026 MR#: [id number] Acct: [id number] Name: ARYAN ROBERTS Rep #: [id number] : 1965 59 From: Jacob Mckinney MD PCP: Dr. Cosme Berger MD Status:[facility] Y Race: C Location: [facility] Anesthesia Postop Eval I Sum Postop Eval Completion status Anesthesia document: Postop Eval 1 completed: Yes Anesthesia Postop Eval I Summary Anesthesia Postop Eval I Summary: Anesthesia Postop Eval I: Assessment Summary Airway patent yes 12/13/24 11:39 FRUIT PICKER MACHINE OPERATOR.AMERICO Spontaneous unlabored Yes 12/13/24 11:39 FRUIT PICKER MACHINE OPERATOR.SJKELVIN respirations Mental status Awake,Calm 12/13/24 11:39 FRUIT PICKER MACHINE OPERATOR.SJKELVIN nausea No 12/13/24 11:39 FRUIT PICKER MACHINE OPERATOR.SJKELVIN Vomiting No 12/13/24 11:39 FRUIT PICKER MACHINE OPERATOR.AMERICO Anesthesia Postop Eval I: Fluid Summary Crystalloid volume administer 500 12/13/24 11:39 FRUIT PICKER MACHINE OPERATOR.AMERICO (ml) Colloids volume administered ( ml) Blood Product volume administered (ml) Total IV fluid infused 500 12/13/24 11:39 FRUIT PICKER MACHINE OPERATOR.AMERICO Anesthesia Postop Eval I: Summary Notes Anesthesia Complication No 12/13/24 11:39 FRUIT PICKER MACHINE OPERATOR.AMERIOC Anesthesia Complication Comment: Post-operative progress note Anesthesia: Postop Eval II Evaluation Mental status: Awake and Calm Pain Level: 1 nausea: No Vomiting: No Complications Anesthesia Complication: No 12/14/24 0027 Date Jacob Mckinney MD Cosigner Signature: Date CC: Signed Normal [facility] Discharge Instructionon Discharge Instruction [facility] Medical Records Department [address] [place] [address] Instructions for Home/Discharge Instructions 12/13/24 1125 MR#: [id number] Acct: [id number] Name: GRUPOPURNIMAARYAN Rep #: [id number] : 1965 59 From: Peter Perea MD PCP: Dr. Cosme Berger MD Status:REG [facility] Discharge Instructions Procedure Hernia Diet Discharge Diet: [...] to schedule 2 week follow up appointment. [phone] Test Results: Test results from this visit will be discussed in further detail at your follow-up appointment, if applicable. Discharge Plan Admission Attending Provider: Peter Perea Primary Care Provider: Cosme Berger Instructions Print Language: Jamaican Discharge Orders/Prescriptions Prescriptions: New oxycodone 5 mg [...] MD CC: Dr. Cosme Berger MD Signed [facility] MR/POSTOP.ANEon 12-13-2024 MR/POSTOP.[facility] Medical Records Department [address] [place] [address] Anesthesia Postop Eval I 12/13/241135 MR#: [id number] Acct: [id number] Name: ARYAN ROBERTS Rep #: [id number] : 1965 59 From: Rhiannon Mcclellan CRNA PCP: Dr. Cosme Berger MD Status:REG [facility] Y Race: C Location: [place] [address] Anesthesia: Postop Eval I Current Vital Signs [...] completed: Yes 12/13/24 1139 Date Rhiannon Mcclellan FRUIT PICKER MACHINE OPERATOR Cosigner Signature: Date CC: Signed [facility] Operative Reporton Operative Report [facility] Medical Records Department [address] [place] [address] Operative Report 12/13/24 1122 MR#: [id number] Acct: [id number] Name: ARYAN ROBERTS Rep #: [id number] : 1965 59 From: Peter Perea MD PCP: Dr. Cosme Berger MD Status:[facility] Location: [place] [address] Operative Report (Standard) Operative Information Date of Procedure: 12/13/24 Pre-Operative Diagnosis: Umbilical hernia Post-Operative Diagnosis: Umbilical hernia Surgery/Procedure Performed: Umbilical hernia repair pilot boat deckhand: No Type of Anesthesia: General/Regional RN Documented [...] MD; Dr. Cosme Berger MD Signed Normal [facility] Orthopedic Visit Reporton Orthopedic Visit Report [facility] [address] [place] [address] OFFICE VISIT Date of Service: 12/07/24 MR#: [id number] Acct: [id number] Name: ARYAN ROBERTS Rep #: [id number] : 1965 Provider: Dr. Bowen Nagel MD Age/Sex: 59/M Location: [facility] Status: Signed Intake Vital Signs 10/18/24 11:02 [...] into ascending aorta (06/25/16) Atherosclerotic heart disease [place]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 Hypercholesterolemia Non-STEMI (non-ST [...] by me, Dr. Bowen Nagel MD 12/07/24 6888. Part of today???s visit was documented by [...] is a 59-year-old (more content not included)... [facility] MR/PAT.[facility] Medical Records Department [address] [place] [address] PAT - Anesthesia 12/05/24 1804 MR#: [id number] Acct: [id number] Name: ARYAN ROBERTS Rep #: [id number] : 1965 59 From: Jacob Mckinney MD PCP: Dr. 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 Hx Hospitalization Yes: 2 [facility], 10/202312/01/24 11:14 Any Problems With Anesthesia No [...] take am of surgery PONV PONV - pawn shop keeper: PONV - pawn shop keeper Female No 12/01/24 11:14 HX of Motion [...] 11/30/24 08:22 Respiratory Assessment Respiratory Assessment - pawn shop keeper: Respiratory Tract Infection Hx - pawn shop keeper Hx Respiratory Tract Infection No 12/01/24 11:14 STOP Sleep Apnea STOP Sleep Apnea - pawn shop keeper: STOP Sleep Apnea - pawn shop keeper Hx Hypertension Yes: COTROLLED WITH MEDS 12/01/24 [...] Tobacco Use History Tobacco Use History - pawn shop keeper: Tobacco Use History - pawn shop keeper Tobacco Use Smoking Status Never smoker 12/01/24 11:14 Hx Tobacco Use No 12/01/24 11:14 Years Smoking Packs Smoked per Day Smoking Cessation Date was within the last 15 years Hx Smoking Cessation Date Hx Smoking Cessation No 12/01/24 11:14 Counseling Hematologic Medial History Hematologic Hx - pawn 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 keeper: 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 Hx of Blood Transfusion No 12/01/24 11:14 [...] confused, unrespo /Reproduction History /Reproductive History - pawn shop keeper: /Reproductive Hx- pawn shop keeper Hx Now No 12/01/24 11:14 Gestational Age (in weeks): EDC: Hx Hx Para Hx Section SAB No 12/01/24 11:14 [facility] Medical History (Updated 12/01/24 @ 11:23 by Rich Ruiz) Back pain History of echocardiogram History of stress test Cardiology follow-up encounter Umbilical hernia Coronary artery 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) Essential hypertension Inflammatory polyarthropathy BPH (benign prostatic hyperplasia) GERD (gastroesophageal reflux disease) 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 Normal [facility] Surgery Visit Reporton 11-30 Surgery Visit Report [facility] [address] [place] [address]. [address] [place] [address] OFFICE VISIT Date of Service: 11/30/24 MR#: [id number] Acct: [id number] Name: GRUPOPURNIMAARYAN Rep #: [id number] : 1965 Provider: Dr. Peter matthews MD Age/Sex: 59/M Location: [facility] Status: Signed Intake Vital Signs 10/18/24 11:02 [...] into ascending aorta (06/25/16) Atherosclerotic heart disease [place]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 Hypercholesterolemia Non-STEMI (non-ST [...] pressure, hea (more content not included)... Normal [facility] Magnetic resonance imaging r eportOrdered By: Reyes Khan on 11-29-2024 Study report [facility] Imaging Services [address] [place] [address] Spine Lumbar (Routine) MR#: [id number] Acct: [id number] Name: ARYAN ROBERTS Rep #: [id number] : 1965 M 59 From: Savannah Khan MD PCP: Dr. Cosme Berger MD Status: R EG CLI Study:Spine Lumbar (Routine) Date of Exam: 11/26/24 Exam# [id number] Ordering Dr: Sammy Gould PROCEDURE: SPINE LUMBAR [...] (Routine) IMPRESSION: Degenerative disc disease. Reading Location: [place] [address] CC: DAVIE Zuñiga; Dr. Cosme Berger MD ~ Wwe Wrestler: Signed [facility] Spine Lumbar (Routine)on Spine Lumbar (Routine) [facility] Imaging Services [address] [place] [address] Spine Lumbar (Routine) MR#: [id number] Acct: [id number] Name: ARYAN ROBERTS Rep #: [id number] : 1965 M 59 From: Reyes pérez MD PCP: Dr. Cosem Berger MD Status: REG CLI Study: Spine Lumbar (Routine) Date of Exam: 11/26/24 Exam# [id number] Ordering Dr: Paola Gould PROCEDURE: SPINE LUMBAR [...] (Routine) IMPRESSION: Degenerative disc disease. Reading Location: [place] [address] CC: DAVIE Zuñiga; Dr. Cosme Berger MD Wwe Wrestler: Signed Normal [facility] L/S Spine Min 4 Viewson 10-06 L/S Spine Min 4 Views [facility] Imaging Services [address] [place] [address] L/S Spine Min 4 Views MR#: [id number] Acct: [id number] Name: ARYAN ROBERTS Rep #: [id number] : 1965 M 59 From: Dwayne Bedolla MD PCP: Dr. Cosme Berger MD Status: DEP AMB Study: L/S Spine Min 4 Views Date of Exam: 10/18/24 Exam# [id number] Ordering Dr: Paola Gould PROCEDURE: L/S SPINE [...] Mild spondylotic changes as above. Reading Location: [facility] CC: DAVIE Zuñiga; Dr. Cosme Berger MD Wwe Wrestler: Signed Normal [facility] Orthopedic Visit Reporton Orthopedic Visit Report [facility] [address] [place] [address] [address] [place] [address] OFFICE VISIT Date of Service: 10/18/24 MR#: [id number] Acct: [id number] Name: ARYAN ROBERTS Rep #: [id number] : 1965 Provider: DAVIE Zuñiga Age/Sex: 59/M Location: [facility] Status: Signed Intake Vital Signs 10/11/24 08:28 [...] into ascending aorta (06/25/16) Atherosclerotic heart disease [place]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 Hypercholesterolemia Non-STEMI (non-ST [...] shooting range recently and 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 Normal [facility] Cardiology Visit Reporton Cardiology Visit Report [facility] [place] [facility] [place] [address] OFFICE VISIT Date of Service: 10/14/24 MR#: [id number] Acct: [id number] Name: ARYAN ROBERTS Rep #: [id number] : 1965 Provider: DAVIE Rivera Age/Sex: 59/M Location: [facility] Status: Signed HPI HPI History [...] coronary artery stent. He was evaluated at [facility] in October 2023 for chest discomfort. [...] s/p ER but something still not right Supervisor Beam Department Required: No Is patient in pain?: No [...] mg chewable tablet 81 mg PO DAILY [facility] 10/18/24 History nitroglycerin 0.4 mg sublingual 0.4 [...] Patient does not know all of medications [facility] Medical History Coronary artery dissection ( 06/08 (more content not included)... Normal [facility] 12 Lead EKGon 10-11-2024 12 Lead EKG [facility] Cardiovascular Services [address] [place] [address] 12 Lead EKG 10/11/24 09 MR#: [id number] Acct: [id number] Name: ARYAN ROBERTS Rep #: [id number] : 1965 59 From: Kal Simeon MD [...] rhythm Normal ECG Confirmed by Kal Simeon ([id number]), video tape editor MAHOGANY MONTOYA ([id number]) on 10/14/2024 12:03:21 PM Referred By: CHEY Confirmed By: Kal Simeon 10/14/24 1203 Date Kal Simeon MD CC: Dr. Cosme Berger MD; Dr. Flaquito Huerta DO Signed Normal [facility] Absolute lymphocyte countOrd ered By: Flaquito Huerta on 10-11-2024 Lymphocytes Auto (Unsp spec) [#/Vol] 1.22 10*3/uL 0.83-4.51 [facility] Absolute neutrophil countOrd ered By: Flaquito Huerta on 10-11-2024 Neutrophils (Bld) [#/Vol] 3.4 10*3/uL 2.0-7.7 [facility] Anion gap in Serum or Plasma Ordered By: Flaquito Huerta on 10-11-2024 Anion gap [Moles/Vol] 13 mmol/L 5-15 [facility] Automated lymphocyte count a s percentage of total leukocytesOrdered By: Flaquito Huerta on 05-06-2025 Lymphocytes/100 WBC Auto (Unsp spec) 23.4 % 19-41 [facility] BUN/creatinine ratioOrdered By: Flaquito Huerta on 10-11-2024 Urea nitrogen/Creatinine [Mass ratio] 11.1 mg/mg - [facility] Basic Metabolic Profile (BMP )on 10-11-2024 BUN/CRE 11.1 RATIO Normal - [facility] Comment on above: Performed By: #### L 501.4021, L500.2500, L100.0100 ####[facility] [address] [place], [address] Calcium [Mass/Vol] 10.2 mg/dL Normal 7.6-11.0 [facility] Comment on above: Performed By: #### L 501.4021, L500.2500, L100.0100 ####[facility] [address] [place], [address] Chloride [Moles/Vol] 104 mmol/L Normal 98-108 [facility] Comment on above: Performed By: #### L 501.4021, L500.2500, L100.0100 ####[facility] [address] [place], [address] CO2 [Moles/Vol] 21.8 mmol/L Normal 21.0-32.0 [facility] Comment on above: Performed By: #### L 501.4021, L500.2500, L100.0100 ####[facility] [address] [place], [address] Creatinine [Mass/Vol] 1.29 mg/dL High 0.70-1.20 [facility] Comment on above: Performed By: #### L 501.4021, L500.2500, L100.0100 ####[facility] [address] [place], [address] ECRCL 72.48 ml/min Normal 50-250 [facility] Comment on above: Performed By: #### L 501.4021, L500.2500, L100.0100 ####[facility] [address] [place], [address] GAP 13 Normal 5-15 [facility] Comment on above: Performed By: #### L 501.4021, L500.2500, L100.0100 ####[facility] [address] [place], [address] GFR/1.73 sq M.predicted among non-blacks MDRD (S/P/Bld) [Vol rate/Area] 64 mL/min/{1.73_m2} Normal >60 [facility] Comment on above: Result Comment: mL/m in/1.73m2 CKD-EPI Creatinine Equation (2020) Performed By: #### L 501.4021, L500.2500, L100.0100 ####[facility] [address] [place], [address] Glucose [Mass/Vol] 130 mg/dL High 70-99 [facility] Comment on above: Performed By: #### L 501.4021, L500.2500, L100.0100 ####[facility] [address] [place], [address] Potassium [Moles/Vol] 4.2 mmol/L Normal 3.3-5.1 [facility] Comment on above: Performed By: #### L 501.4021, L500.2500, L100.0100 ####[facility] [address] [place], [address] Sodium [Moles/Vol] 138 mmol/L Normal 133-145 [facility] Comment on above: Performed By: #### L 501.4021, L500.2500, L100.0100 ####[facility] [address] [place], [address] Urea nitrogen [Mass/Vol] 14 mg/dL Normal 4-19 [facility] Comment on above: Performed By: #### L 501.4021, L500.2500, L100.0100 ####[facility] [address] [place], [address] Basophil percentageOrdered B y: Flqauito Huerta on 10-11-2024 Basophils/100 WBC (Bld) 1.0 % 0-1 [facility] CBC W/Diff, Automatedon Absolute Lymph 1.22 X10 3/uL Normal 0.83-4.51 [facility] Comment on above: Performed By: #### L 501.4021, L500.2500, L100.0100 #### [facility] [address] [place], [address] Absolute Neut 3.4 X10 3/uL Normal 2.0-7.7 [facility] Comment on above: Performed By: #### L 501.4021, L500.2500, L100.0100 #### [facility] [address] [place], [address] Basophils/100 WBC (Bld) 1.0 % Normal 0-1 [facility] Comment on above: Performed By: #### L 501.4021, L500.2500, L100.0100 #### [facility] [address] [place], [address] Eosinophils/100 WBC (Bld) 1.7 % Normal 0-5 [facility] Comment on above: Performed By: #### L 501.4021, L500.2500, L100.0100 #### [facility] [address] [place], [address] Erythrocyte distribution width (RBC) [Ratio] 13.5 % Normal 11.6-14.6 [facility] Comment on above: Performed By: #### L 501.4021, L500.2500, L100.0100 #### [facility] [address] [place], [address] Hematocrit (Bld) [Volume fraction] 48.2 % Normal 40-54 [facility] Comment on above: Performed By: #### L 501.4021, L500.2500, L100.0100 #### [facility] [address] [place], [address] Hemoglobin (Bld) [Mass/Vol] 17.1 g/dL High 13.0-16.5 [facility] Comment on above: Performed By: #### L 501.4021, L500.2500, L100.0100 #### [facility] [address] [place], [address] IG% 0.400 Normal 0.0-0.9 [facility] Comment on above: Result Comment: IG% - Immature Granulocytes (promyelocytes, myelocytes and metamyelocytes) > 1% indicates that a LEFT SHIFT is Present. Performed By: #### L 501.4021, L500.2500, L100.0100 #### [facility] [address] [place], [address] Lymphocytes/100 WBC (Bld) 23.4 % Normal 19-41 [facility] Comment on above: Performed By: #### L 501.4021, L500.2500, L100.0100 #### [facility] [address] [place], [address] MCH (RBC) [Entitic mass] 31.4 pg Normal 27.0-32.0 [facility] Comment on above: Performed By: #### L 501.4021, L500.2500, L100.0100 #### [facility] [address] [place], [address] MCHC (RBC) [Mass/Vol] 35.5 g/dL Normal 32-36 [facility] Comment on above: Performed By: #### L 501.4021, L500.2500, L100.0100 #### [facility] [address] [place], [address] MCV (RBC) [Entitic vol] 88.6 fL Normal 80-94 [facility] Comment on above: Performed By: #### L 501.4021, L500.2500, L100.0100 #### [facility] [address] [place], [address] Monocytes/100 WBC (Bld) 8.4 % Normal 0-10 [facility] Comment on above: Performed By: #### L 501.4021, L500.2500, L100.0100 #### [facility] [address] [place], [address] Neutrophils/100 WBC (Bld) 65.1 % Normal 47-70 [facility] Comment on above: Performed By: #### L 501.4021, L500.2500, L100.0100 #### [facility] [address] [place], [address] Nucleated RBC (Bld) [#/Vol] 0 10*3/uL Normal 0-5 [facility] Comment on above: Performed By: #### L 501.4021, L500.2500, L100.0100 #### [facility] [address] [place], [address] Platelet mean volume (Bld) [Entitic vol] 9.7 fL Normal 6.2-12.0 [facility] Comment on above: Performed By: #### L 501.4021, L500.2500, L100.0100 #### [facility] [address] [place], [address] Platelets (Bld) [#/Vol] 267 10*3/uL Normal 150-450 [facility] Comment on above: Performed By: #### L 501.4021, L500.2500, L100.0100 #### [facility] [address] [place], [address] RBC (Bld) [#/Vol] 5.44 10*6/uL Normal 4.6-6.2 [facility] Comment on above: Performed By: #### L 501.4021, L500.2500, L100.0100 #### [facility] [address] [place], [address] RDW SD 43.6 fl Normal 35.1-43.9 [facility] Comment on above: Performed By: #### L 501.4021, L500.2500, L100.0100 #### [facility] [address] [place], [address] WBC (Bld) [#/Vol] 5.2 10*3/uL Normal 4.4-11.0 [facility] Comment on above: Performed By: #### L 501.4021, L500.2500, L100.0100 #### [facility] [address] [place], [address] Carbon dioxide, total [Moles /volume] in Central venous bloodOrdered By: Flaquito Huerta on 10-11-2024 CO2 [Moles/Vol] 21.8 mmol/L 21.0-32.0 [facility] Chest 1 View (Portable)on Chest 1 View (Portable) [facility] Imaging Services [address] [place] [address] Chest 1 View (Portable) MR#: [id number] Acct: [id number] Name: ARYAN ROBERTS Rep #: [id number] : 1965 M 59 From: Colton August MD PCP: Dr. Cosme Berger MD Status: PRE ER Study: Chest 1 View (Portable) Date of Exam: 10/11/24 Exam# [id number] Ordering Dr: Flaquito Huerta DO PROCEDURE: CHEST [...] 2. Additional description as above. Reading Location: [id number] CC: Dr. Cosme Berger MD; Dr. Flaquito Huerta DO Wwe Wrestler: Signed Normal [facility] Chloride assayOrdered By: Yaquelin Huerta on 10-11-2024 Chloride [Moles/Vol] 104 mmol/L 98-108 [facility] Emergency Department Summary on 10-11-2024 Emergency Department Summary [facility] Medical Records Department [address] [place] [id number] Emergency Department Summary 10/11/24 MR#: [id number] Acct: [id number] Name: ARYAN ROBERTS Rep #: [id number] : 1965 59 From: Flaquito Heurta DO PCP: Dr. 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 Hypercholesterolemia Non-STEMI (non-ST [...] (Reviewed 12/18/23 @ 09:06 by Olayinka French SURGICAL ELASTIC KNITTER, SURGICAL ELASTIC KNITTER-C) Mother , age 64 CAD (coronary artery disease) Rheumatic fever Brother CAD (coronary artery disease) Surgical History (Reviewed 12/18/23 @ 09:06 by Olayinka French SURGICAL ELASTIC KNITTER, SURGICAL ELASTIC KNITTER-C) History of colonoscopy ( 10/2019) Hx of abdominal surgery ( 10/2019) Hx of hand surgery History of coronary artery stent placement (11/03/23) Social History (Reviewed 12/18/23 @ 09:06 by Olayinka Frecnh SURGICAL ELASTIC KNITTER, SURGICAL ELASTIC KNITTER-C) Smoking Status: Never smoker alcohol intake: current [...] past ca (more content not included)... Normal [facility] Eosinophil percentageOrdered By: Flaquito Huerta on 10-11-2024 Eosinophils/100 WBC (Bld) 1.7 % 0-5 [facility] Erythrocyte distribution wid th ratioOrdered By: Flaquito Huerta on 10-11-2024 Erythrocyte distribution width (RBC) [Ratio] 13.5 % 11.6-14.6 [facility] Erythrocyte distribution wid th standard deviationOrdered By: Flaquito Huerta on 10-11-2024 Erythrocyte distribution width (RBC) [Ratio] 43.6 fl 35.1-43.9 [facility] Glomerular filtration rate ( GFR) estimation/1.73 sq m using serum, plasma, or whole bOrdered By: Flaquito Huerta on 10-11-2024 GFR/1.73 sq M.predicted among non-blacks MDRD (S/P/Bld) [Vol rate/Area] 64 mL/min/{1.73_m2} >60 [facility] Comment on above: mL/min/1.73m2 CKD-EP I Creatinine Equation (2020) Hematocrit Auto (Bld) [Volum e fraction]Ordered By: Flaquito Huerta on 10-11-2024 Hematocrit (Bld) [Volume fraction] 48.2 % 40-54 [facility] Hemoglobin measurementOrdere d By: Flaquito Huerta on 10-11-2024 Hemoglobin (Bld) [Mass/Vol] 17.1 g/dL High 13.0-16.5 [facility] Immature granulocytes/100 WB C Auto (Bld)Ordered By: Flaquito Huerta on 10-11-2024 Immature granulocytes/100 WBC (Bld) 0.400 % 0.0-0.9 [facility] Comment on above: IG% - Immature Granu locytes (promyelocytes, myelocytes and metamyelocytes) > 1% indicates that a LEFT SHIFT is Present. L499.0042on 10-11-2024 Trop T High Sen Normal <=22 [facility] Comment on above: Result Comment: Ana Lilia robles via OM: Ordered Performed By: #### L 499.0042 ####[facility] [address] [place], [address] L501.4021on 10-11-2024 Trop T High Sen 11 ng/L Normal <=22 [facility] Comment on above: Performed By: #### L 501.4021, L500.2500, L100.0100 ####[facility] [address] [place], [address] MCV (mean corpuscular volume ) determinationOrdered By: Flaquito Huerta on 10-11-2024 MCV (RBC) [Entitic vol] 88.6 fL 80-94 [facility] Mean corpuscular hemoglobin (MCH) determinationOrdered By: Flaquito Huerta on 10-11-2024 MCH (RBC) [Entitic mass] 31.4 pg 27.0-32.0 [facility] Mean corpuscular hemoglobin concentration (MCHC) determinationOrdered By: Flaquito Huerta on 10-11-2024 MCHC (RBC) [Mass/Vol] 35.5 g/dL 32-36 [facility] Mean platelet volume determi nationOrdered By: Flaquito Huerta on 10-11-2024 Platelet mean volume (Bld) [Entitic vol] 9.7 fL 6.2-12.0 [facility] Monocyte percentageOrdered B y: Flaquito Huerta on 10-11-2024 Monocytes/100 WBC (Bld) 8.4 % 0-10 [facility] Neutrophil percentageOrdered By: Flaquito Huerta on 10-11-2024 Neutrophils/100 WBC (Bld) 65.1 % 47-70 [facility] Nucleated red blood cell per centageOrdered By: Flaquito Huerta on 10-11-2024 Nucleated RBC/100 WBC (Bld) [Ratio] 0 % 0-5 [facility] Platelet countOrdered By: Yaquelin Huerta on 10-11-2024 Platelets (Bld) [#/Vol] 267 10*3/uL 150-450 [facility] Potassium measurement (mass/ volume)Ordered By: Flaquito Huerta on 10-11-2024 Potassium (Unsp spec) [Mass/Vol] 4.2 mmol/L 3.3-5.1 [facility] RBC Auto (Bld) [#/Vol]Ordere d By: Flaquito Huerta on 10-11-2024 RBC (Bld) [#/Vol] 5.44 10*6/uL 4.6-6.2 [facility] Serum creatinine measurement (mass/volume)Ordered By: Flaquito Huerta on 10-11-2024 Creatinine [Mass/Vol] 1.29 mg/dL High 0.70-1.20 [facility] Serum glucose measurement (m ass/volume)Ordered By: Flaquito Huerta on 10-11-2024 Glucose [Mass/Vol] 130 mg/dL High 70-99 [facility] Serum or plasma calcium brad urement (mass/volume)Ordered By: Flaquito Huerta on 10-11-2024 Calcium [Mass/Vol] 10.2 mg/dL 7.6-11.0 [facility] Serum or plasma urea nitroge n measurement (mass/volume)Ordered By: Flaquito Huerta on 10-11-2024 Urea nitrogen [Mass/Vol] 14 mg/dL 4-19 [facility] Sodium levelOrdered By: Jazlyn Huerta on 10-11-2024 Sodium [Moles/Vol] 138 mmol/L 133-145 [facility] Troponin T.cardiac [Mass/vol ume] in Serum or Plasma by High sensitivity methodOrdered By: Flaquito Huerta on 10-11-2024 Troponin T.cardiac High sensitivity method [Mass/Vol] 11 ng/L <22 [facility] White blood cell (WBC) count Ordered By: Flaquito Huerta on 10-11-2024 WBC (Bld) [#/Vol] 5.2 10*3/uL 4.4-11.0 [facility] PSA,Total- Diagnosticon 02-0 PSA, DIAGNOSTIC 3.06 ng/mL Normal 0.0-4.0 [facility] Comment on above: Result Comment: This test was performed using the TPSA assay method for the Quantason system. Values obtained with different assay methods cannot be used interchangably. When changing PSA assays in the course of monitoring a patient, additional sequential testing should be carried out to confirm baseline values. Performed By: #### L 501.9940 #### [facility] [address] [place], [address] PSA,Total - Annual Screenon 01-11-2024 PSA,TOT SCREEN 5.55 ng/mL High 0.00-4.00 [facility] Comment on above: Result Comment: This test was performed using the TPSA assay method for the Greenext chemistry system. Values obtained with different assay methods cannot be used interchangably. When changing PSA assays in the course of monitoring a patient, additional sequential testing should be carried out to confirm baseline values. Performed By: #### L 501.9910 ####[facility] [address] [place], [address] Cardiology Visit Reporton Cardiology Visit Report [facility] [address] [place] [address] OFFICE VISIT Date of Service: 12/18/23 MR#: [id number] Acct: [id number] Name: ARYAN ROBERTS Rep #: [id number] : 1965 Provider: ANTONIO cedillo Age/Sex: 58/M Location: [facility] Status: Signed [facility] History of Present Illness Details: Aryan also [...] coronary artery stent. He was evaluated at [facility] in October 2023 for chest discomfort. 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 Normal [facility] RFon 07-10-2022 Rheumatoid Factor <6.0 Normal <=6.0 [facility] ([place]) Comment on above: Result Comment: RF I [...] tests. These results were obtained with the [employer] QUANTA Lite RF IgM KWESI. RF IgM values obtained with different manufacturers' assay methods may not be used interchangeably. The magnitude of the reported IgM levels cannot be correlated to an endpoint titer. Performed By: #### T ESTO, RF, JOSE, LIZA #### [address] [address] #### ESR, URIC, VIDH #### [address] [address] .ANATon 07-09-2022 JOSE Pattern 1 Speckled Normal [facility] ([place]) Comment on above: Result Comment: At [facility], an JOSE titer of less than 160 is not considered suggestive of significant rheumatoid disease. If clinical suspicion is high, suggest repeat testing in 1-2 months. Performed By: #### T ESTO, RF, JOSE, LIZA #### [address] [address] #### ESR, URIC, VIDH #### [address] [address] JOSE Titer 1 40 Normal [facility] ([place]) Comment on above: Performed By: #### T ESTO, RF, JOSE, LIZA #### [address] [address] #### ESR, URIC, VIDH #### [address] [address] ANAon 07-09-2022 JOSE See Titer Normal Neg 40 [facility]) Comment on above: Result Comment: JOSE Screen and Titer methodology is an immunofluorescent technique utilizing Hep2 Substrate. Performed By: #### T ESTO, RF, JOSE, LIZA #### [address] [address] #### ESR, URIC, VIDH #### [address] [address] XR HIP MINIMUM 2 VIEWS RIGHT on [...] 07/09/2022 3:13:16 PM Ordering Provider: [facility] ([place]) XR SPINE LUMBAR AP/LAT/FLEX/ EXTon 07-09-2022 XR [...] 07/09/2022 3:12:14 PM Ordering Provider: CONST[facility] ([place]) ESRon 07-08-2022 Erythrocyte Sed Rate 4 mm/hr Normal 0-20 [facility]) Comment on above: Performed By: #### T ESTO, RF, JOSE, LIZA #### [place] [address] #### ESR, URIC, VIDH #### [address] [address] LABORATORYOrdered By: Izabela Love on 07-08-2022 ESR [...] Testosterone Lvl 277.41 ng/dL Normal 86.98-780. 10 [facility] ([place]) Comment on above: Result Comment: Norm al Reference Ranges for Females: Female Premenopause Age 21-60 9.01-47.94 ng/dL Female Postmenopause Age 45-89 <7.00-45.62 ng/dL Performed By: #### DANIELLE BETTS ANA, LIZA #### [place] [address] #### ESR, URIC, VIDH #### [place] [id number] URICon 07-08-2022 Uric Acid Lvl 4.2 mg/dL Normal 3.5-7.2 [facility] ([place]) Comment on above: Performed By: #### DANIELLE BETTS ANA, LIZA #### [place] [address] #### ESR, URIC, VIDH #### [address] [address] VIDHon 07-08-2022 Vit. D 25-Hydroxy 36.7 ng/mL Normal [facility] ([place]) Comment on above: Result Comment: Inte rpretive Values Based on Total 25(OH) Vitamin D: Deficient <20 ng/mL Insufficient 20 - <30 ng/mL Sufficient 30-100 ng/mL Performed By: #### DANIELLE BETTS ANA, LIZA #### [place] [address] #### ESR, URIC, VIDH #### [address] [address] Absolute lymphocyte counton 11-19-2021 Lymphocytes Auto (Unsp spec) [#/Vol] 1.02 10*3/uL 0.83-4.51 [facility] Work Phone: Basophil percentageon 2021 Basophils/100 WBC (Bld) 0.9 % 0-1 [facility] Work Phone: Bilirubin [Mass/Vol] 0.30 mg/dL 0.20-1.00 [facility] Work Phone: Comment on above: For patients on eltr ombopag therapy, use of Dimension [facility] TBIL is not recommended. Chloride [Moles/Vol] 109 mmol/L 98-107 [facility] Work Phone: [phone] Cholesterol [Mass/Vol] 182 mg/dL <200 [facility] Work Phone: Comment on above: <200 mg/dL Desirable 200-240 mg/dL Borderline >240 mg/dL High Risk Eosinophils/100 WBC (Bld) 1.5 % 0-5 [facility] Work Phone: Glucose [Mass/Vol] 107 mg/dL 74-106 [facility] Work Phone: Comment on above: Fasting Glucose resu lt from 100 to 125 mg/dL suggests IMPAIRED HOMEOSTASIS per A.D.A. criteria. Neutrophils (Bld) [#/Vol] 3.6 10*3/uL 2.0-7.7 [facility] Work Phone: Neutrophils/100 WBC (Bld) 68.4 % 47-70 [facility] Work Phone: Potassium [Moles/Vol] 4.0 mmol/L 3.5-5.1 [facility] Work Phone: Protein [Mass/Vol] 7.5 g/dL 6.4-8.2 [facility] Work Phone: [phone] Sodium [Moles/Vol] 139 mmol/L 136-145 [facility] Work Phone: Triglyceride [Mass/Vol] 111 mg/dL <199 [facility] Work Phone: Comment on above: The drugs N-Acetylcy steine and Metamizole may falsely depress this assay.Serum Triglycerides Reference Interval Normal <150 mg/dL Borderline high 150 - 199 mg/dL High 200 - 499 mg/dL Very High > or = 500 mg/dL WBC (Bld) [#/Vol] 5.3 10*3/uL 4.4-11.0 [facility] Work Phone: Blood erythrocytes count (nu mber/volume)on 11-19-2021 RBC (Bld) [#/Vol] 4.86 10*6/uL 4.6-6.2 [facility] Work Phone: Blood hemoglobin measurement (mass/volume)on 11-19-2021 Hemoglobin (Bld) [Mass/Vol] 15.4 g/dL 13.0-16.5 [facility] Work Phone: Blood lymphocytes/100 leukoc yteson 11-19-2021 Lymphocytes/100 WBC (Bld) 19.3 % 19-41 [facility] Work Phone: Blood monocytes/100 leukocyt eson 11-19-2021 Monocytes/100 WBC (Bld) 9.5 % 0-10 [facility] Work Phone: [phone] Blood platelet mean volumeon 11-19-2021 Platelet mean volume (Bld) [Entitic vol] 9.7 fL 6.2-12.0 [facility] Work Phone: [phone] Determination of erythrocyte mean corpuscular volume (MCV)on 11-19-2021 MCV (RBC) [Entitic vol] 92.8 fL 80-94 [facility] Work Phone: Erythrocyte sedimentation ra clinton 11-19-2021 ESR (Bld) [Velocity] 22 mm/h 0-20 [facility] Work Phone: Hematocrit Auto (Bld) [Volum e fraction]on 11-19-2021 Hematocrit (Bld) [Volume fraction] 45.1 % 40-54 [facility] Work Phone: Laboratory - Chemistry and C hemistry - challengeon 11-19-2021 ALP [Catalytic activity/Vol] 61 U/L 45-117 [facility] Work Phone: ALT [Catalytic activity/Vol] 27 U/L 16-61 [facility] Work Phone: CO2 [Moles/Vol] 24.0 mmol/L 21.0-32.0 [facility] Work Phone: Globulin (S) [Mass/Vol] 3.6 g/dL 2.2-4.2 [facility] Work Phone: Urea nitrogen/Creatinine [Mass ratio] 10.6 mg/mg 10-20 [facility] Work Phone: Laboratory - Hematology and Cell countson 11-19-2021 Erythrocyte distribution width (RBC) [Entitic vol] 44.2 fL 35.1-43.9 [facility] Work Phone: Erythrocyte distribution width (RBC) [Ratio] 13.0 % 11.6-14.6 [facility] Work Phone: Immature granulocytes/100 WBC (Bld) 0.400 % 0.0-0.9 [facility] Work Phone: Comment on above: IG% - Immature Granu locytes (promyelocytes, myelocytes and metamyelocytes) > 1% indicates that a LEFT SHIFT is Present. MCH (RBC) [Entitic mass] 31.7 pg 27.0-32.0 [facility] Work Phone: Nucleated RBC/100 WBC (Bld) [Ratio] 0 % 0-5 [facility] Work Phone: MCHC Auto (RBC) [Mass/Vol]on 11-19-2021 MCHC (RBC) [Mass/Vol] 34.1 g/dL 32-36 [facility] Work Phone: No Panel Informationon 11-19 Estimated GFR (MDRD) Amer 66 mL/min >60 [facility] Work Phone: Comment on above: GFR Calc Estimated GFR (MDRD) Non-Af Amer 55 mL/min >60 [facility] Work Phone: Comment on above: Non- GFR Calc Homocysteine 14.8 umol/L 3.2-10.7 [facility] Work Phone: Troponin I High Sensitivity 4 pg/mL 3.0-78.0 [facility] Work Phone: Comment on above: Please Note: New Nneka t Units and Gender Specific Reference Ranges. For more information see Policy Stat Procedure [facility] High Sensitivity Troponin (TNIH) and attachments. Platelets bldon 11-19-2021 Platelets (Bld) [#/Vol] 238 10*3/uL 150-450 [facility] Work Phone: Serum or plasma albumin brad urement (mass/volume)on 11-19-2021 Albumin [Mass/Vol] 3.9 g/dL 3.2-5.0 [facility] Work Phone: Serum or plasma albumin/glob ulin mass ratioon 11-19-2021 Albumin/Globulin [Mass ratio] 1.1 {ratio} 0.9-2.4 [facility] Work Phone: Serum or plasma calcium brad urement (mass/volume)on 11-19-2021 Calcium [Mass/Vol] 9.4 mg/dL 8.5-10.1 [facility] Work Phone: Serum or plasma cholesterol in HDL measurement (mass/volume)on 11-19-2021 Cholesterol in HDL [Mass/Vol] 36 mg/dL >40 [facility] Work Phone: Comment on above: The drugs N-Acetylcy steine and Metamizole may falsely depress this assay. Reference Range HDL <40 mg/dL Low HDL Cholesterol HDL >or= 60 mg/dL High HDL Cholesterol Serum or plasma cholesterol in VLDL measurement (mass/volume)on 11-19-2021 Cholesterol in VLDL [Mass/Vol] 22 mg/dL 5-40 [facility] Work Phone: Serum or plasma creatinine m easurement (mass/volume)on 11-19-2021 Creatinine [Mass/Vol] 1.42 mg/dL 0.70-1.30 [facility] Work Phone: Comment on above: The validity of the calculated GFR & GFRAA in patients over 70 years has not been determined. Clinical correlation is essential. Serum or plasma low density lipoprotein (LDL) cholesterol measurement (mass/volume)on 11-19-2021 Cholesterol in LDL [Mass/Vol] 124 mg/dL 0-130 [facility] Work Phone: Serum or plasma urea nitroge n measurement (mass/volume)on 11-19-2021 Urea nitrogen [Mass/Vol] 15 mg/dL 7-18 [facility] Work Phone: Thin prep Papanicolaou smear with manual screeningon 11-19-2021 Thin prep Papanicolaou smear with manual screening 14 U/L 15-37 [facility] Work Phone: Thin prep Papanicolaou smear with manual screening 6 5-15 [facility] Work Phone: Basophil percentageon 2021 Bilirubin [Mass/Vol] 0.30 mg/dL 0.20-1.00 [facility] Work Phone: Comment on above: For patients on eltr ombopag therapy, use of Dimension [facility] TBIL is not recommended. Cholesterol [Mass/Vol] 189 mg/dL <200 [facility] Work Phone: Comment on above: <200 mg/dL Desirable 200-240 mg/dL Borderline >240 mg/dL High Risk Protein [Mass/Vol] 7.4 g/dL 6.4-8.2 [facility] Work Phone: Triglyceride [Mass/Vol] 95 mg/dL <199 [facility] Work Phone: Comment on above: The drugs N-Acetylcy steine and Metamizole may falsely depress this assay.Serum Triglycerides Reference Interval Normal <150 mg/dL Borderline high 150 - 199 mg/dL High 200 - 499 mg/dL Very High > or = 500 mg/dL Direct bilirubinon 2 Bilirubin.direct [Mass/Vol] 0.12 mg/dL 0.00-0.30 [facility] Work Phone: Laboratory - Chemistry and C hemistry - challengeon 11-18-2021 ALP [Catalytic activity/Vol] 55 U/L 45-117 [facility] Work Phone: ALT [Catalytic activity/Vol] 27 U/L 16-61 [facility] Work Phone: Globulin (S) [Mass/Vol] 3.5 g/dL 2.2-4.2 [facility] Work Phone: Serum or plasma albumin brad urement (mass/volume)on 11-18-2021 Albumin [Mass/Vol] 3.9 g/dL 3.2-5.0 [facility] Work Phone: Serum or plasma cholesterol in HDL measurement (mass/volume)on 11-18-2021 Cholesterol in HDL [Mass/Vol] 38 mg/dL >40 [facility] Work Phone: Comment on above: The drugs N-Acetylcy steine and Metamizole may falsely depress this assay. Reference Range HDL <40 mg/dL Low HDL Cholesterol HDL >or= 60 mg/dL High HDL Cholesterol Serum or plasma cholesterol in VLDL measurement (mass/volume)on 11-18-2021 Cholesterol in VLDL [Mass/Vol] 19 mg/dL 5-40 [facility] Work Phone: Serum or plasma low density lipoprotein (LDL) cholesterol measurement (mass/volume)on 11-18-2021 Cholesterol in LDL [Mass/Vol] 132 mg/dL 0-130 [facility] Work Phone: Thin prep Papanicolaou smear with manual screeningon 11-18-2021 Thin prep Papanicolaou smear with manual screening 19 U/L 15-37 [facility] Work Phone: BMPon 10-28-2019 Anion gap [Moles/Vol] 7 mmol/L Normal 5-16 [facility] Comment on above: Order Comment: Crystal s: M Performed By: #### L 500.48575, L5.99017 #### [facility] [address] [place] [address] Calcium [Mass/Vol] 9.1 mg/dL Normal 8.5-10.1 [facility] Comment on above: Order Comment: Crystal s: M Performed By: #### L 500.54384, L500.02505 #### [facility] [address] [place] [id number] Chloride [Moles/Vol] 107 mmol/L Normal 98-107 [facility] Comment on above: Order Comment: Campu s: M Performed By: #### L 500.79470, [id number] #### [facility] [address] [place] [address] CO2 [Moles/Vol] 26 mmol/L Normal 21-32 [facility] Comment on above: Order Comment: Campu s: M Performed By: #### L 500.83668, 01424 #### [facility] [address] [place] [address] Creatinine [Mass/Vol] 1.030 mg/dL Normal 0.670- 1.[address] [facility] Comment on above: Order Comment: Campu s: M Result Comment: Ally ents receiving either N-Acetylcysteine (NAC) or Metamizole prior to venipuncture, may have falsely depressed results. Performed By: #### L 500.40129, [id number] #### [facility] [address] [place] [address] Glucose [Mass/Vol] 88 mg/dL Normal 70-100 [facility] Comment on above: Order Comment: Campu s: M Result Comment: 70-1 00- Normal Fasting; 100-125 Impaired Fasting; greater than 126 on more than one result- Diabetes. ADA guidelines. Results may be falsely elevated after the administration of Sulfapyridine. Results may be falsely depressed after the administration of Sulfasalazine. Performed By: #### L 500.03275, .[id number] #### [facility] [place] [id number] Potassium [Moles/Vol] 4.0 mmol/L Normal 3.5-5.1 [facility] [facility] Comment on above: Order Comment: Campu s: M Performed By: #### L 500.46423, 79483 #### [facility] [address] [place], [place] [id number] Sodium [Moles/Vol] 141 mmol/L Normal 136-145 [facility] Comment on above: Order Comment: Campu s: M Performed By: #### L 500.63488, L500.91312 #### [facility] [address] [place] [address] Urea nitrogen [Mass/Vol] 9 mg/dL Normal 7-26 [facility] Comment on above: Order Comment: Campu s: M Performed By: #### L 500.27196, L500.31245 #### [facility] [address] [place] [address] Urea nitrogen/Creatinine [Mass ratio] 9 mg/mg Low 15-24 [facility] Comment on above: Order Comment: Campu s: M Performed By: #### L 500.33497, L500.65352 #### [facility] [address] [place] [address] CBCon 10-28-2019 Erythrocyte distribution width (RBC) [Ratio] 13.3 % Normal 11-14.5 [facility] Comment on above: Order Comment: Campu s: M Performed By: #### L 200.23133 #### [facility] [address] [place], [place] [address] Hematocrit (Bld) [Volume fraction] 47.2 % Normal 41.0-53.0 [facility] Comment on above: Order Comment: Campu s: M Performed By: #### L 200.95820 #### [facility] [address] [place] [address] Hemoglobin (Bld) [Mass/Vol] 16.2 g/dL Normal 13.5-17.5 [facility] Comment on above: Order Comment: Campu s: M Performed By: #### L 200.63736 #### [facility] [address] [place] [address] MCHC (RBC) [Mass/Vol] 34.3 g/dL Normal 32.0-36.0 [facility] Comment on above: Order Comment: Campu s: M Performed By: #### L 200.52314 #### [facility] [address] [place] [address] MCV (RBC) [Entitic vol] 92.7 fL Normal 80.0-99.0 [facility] Comment on above: Order Comment: Campu s: M Performed By: #### L 200.56554 #### [facility] [address] [place] [address] Nucleated RBC/100 WBC (Bld) [Ratio] 0.0 % Normal Less than 1 [facility] Comment on above: Order Comment: Campu s: M Performed By: #### L 200.35299 #### [facility] [address] [place] [address] Platelet mean volume (Bld) [Entitic vol] 9.6 fL Normal 9.4-12.4 [facility] Comment on above: Order Comment: Campu s: M Performed By: #### L 200.20312 #### [facility] [address] [place] [address] Platelets (Bld) [#/Vol] 199 K/CU MM Normal 150-450 [facility] Comment on above: Order Comment: Campu s: M Performed By: #### L 200.85817 #### [facility] [address] [place] [address] RBC (Bld) [#/Vol] 5.09 M/CU MM Normal 4.50-6.00 [facility] Comment on above: Order Comment: Campu s: M Performed By: #### L 200.12187 #### [facility] [address] [place] [address] WBC (Bld) [#/Vol] 5.1 K/CUMM Normal 4.5-11.0 [facility] Comment on above: Order Comment: Campu s: M Performed By: #### L 200.04087 #### [facility] [address] [place] [address] GFR ESTon 10-28-2019 IF AMER Greater than [address] [facility] Comment on above: Order Comment: Campu s: M Performed By: #### L 500.50049, L500.33630 #### [facility] [address] [place] [address] IF non-AFR AMER Greater than [address] [facility] Comment on above: Order Comment: Campu s: M Performed By: #### L 500.20626, L500.56526 #### [facility] [address] [place] [address] HP.IMS.CONon 10-28-2019 CONSULTATION-H&P Normal [facility] HP.IMS.[facility] Patient Name: ARYAN ROBERTS [address] [place] [address] Date of : [address] [place] [address] Unit Number: [id number] CONSULTATION-HandP Patient Status: REG [facility] Attending Doctor: Issa Menard MD Service Date: 10/28/19805 See Addendum History of Present Illness Reason for Consult Epiploic appendagitis History of Present Illness Patient is a pleasant 54-year-old male who had some bright red blood per rectum last summer in [place] and had a CT scan in June [...] Aryan Deleon MD Verified/Reviewed by 10/28/19 0842 [facility] OR.Trupti 10-28-2019 Operative Report [facility] OR.OPRPT [facility] Patient Name: ARYAN ROBERTS [address] Date of : [address] [place] [address] Unit Number: [id number] Operative Report Patient Status: REG [facility] Attending Doctor: Issa Menard MD Service Date: [...] to discharge home Anesthesia: [General Endo Zachariah/danika] medical office receptionist assistant: Fetty Estimated Blood Loss: [20 cc] [...] permission to talk to [significant other (Suzie [phone] whom I called at the end of [...] any significant abnormalities. Under direct vision a sknvmp-lo-irsdy 0 PDS was placed in the right [...] Issa Menard MD Verified/Reviewed by 10/28/19 1709 [facility] Operative Report [facility] OR.OPRPT [facility] Patient Name: ARYAN ROBERTS [address] Date of : [address] [place], [place] [address] Unit Number: [id number] Operative Report Patient Status: REG [facility] Attending Doctor: Issa Menard MD Service Date: [...] The patient had the secured a 20 Lao coud catheter was placed and there was [...] Aryan Deleon MD Verified/Reviewed by 10/28/19 0845 [facility] SURGon 10-27-2019 SURG -------- -------- Patient: ARYAN [...] and/or minor grammatical errors may exist. -------- [facility] NAME: ARYAN ROBERTS Pathology and Laboratory Medicine UNIT#: [id number] LOC: [facility] Lead Tank Mechanic: Jemma Doherty M.D. [facility] [id number] ROOM/BED: [facility] : 67 AGE/SEX: 54/M ORD.Issa Wolfe MD END OF REPORT Normal [facility] [place] CT [facility] ABD/PELV W ORALANDIV CONTRAST CT ABD/PELV W ORAL&IV CONTRAST Ordering Physician: Issa Menard MD 10/17/2019 2:[address] ABDOMEN AND PELVIS WITH CONTRAST Clinical Statement: Abdominal pain, rectal bleeding, patient indicates left lower quadrant and right flank pain Comparison: CT abdomen and pelvis June 08, 2019 from [facility] FINDINGS: Following the uneventful administration of 100 [...] RICO M.D. Signed By: CLAUDIA RICO M.D. [facility] MRI LUMBAR SPINE WO IVCONon 08-13-2017 MRI [...] and bilateral neural foramina.IMPRESSION: Unremarkable lumbar spine MRI.Wwe Wrestler: NIKOS Transcribe Date/Time: Aug 13 2017 11:40ADictated by : NURYS JAKC MDThisera examination was interpreted and the report reviewed and electronically signed by: NURYS JACK MD on Aug 13 2017 11:42AM [id number] Normal [facility] PROGRESSon 08-13-2017 PROGRESS HNO ID: [id number] thor: Jennyfer Ku (Rt): (none)Author Type: TechnicianType: Progress NotesFiled: 08/13/2017 11:53 AMNote Text: Radiology Service Progress NotePATIENT NAME: Aryan RobertsMRN: [id number] OF SERVICE: August 13, 2017TIME: 11:53 AMPATIENT IDENTITY VERIFICATION COMPLETED USING TWO (2) METHODS: Patientconfirmed name verbally and Date of .PATIENT GENDER DATA: MalePATIENT RELEVANT IMPLANT DATA REVIEWED: Not ApplicableRADIOLOGY DEPARTMENT: General X-ray: Exam(s) Completed: Spine X-Ray(s):Thoracic and Lumbar AP / LAT / L5-S1 / FLEX-EXTPERIPHERAL IV DATA: Not applicableSIGNED BY: RT [facility] 2017 11:53 AM Normal [facility] PROGRESS HNO ID: [id number] thor: Lucy Marks RtService: (none)Author Type: (none)Type: Progress NotesFiled: 08/13/2017 11:36 AMNote Text: Radiology Service Progress NotePATIENT NAME: Aryan RobertsMRN: [id number] OF SERVICE: August 13, 2017TIME: 11:36 AMPATIENT IDENTITY VERIFICATION COMPLETED USING TWO (2) METHODS: Patientconfirmed name verbally and Date of .PATIENT GENDER DATA: MalePATIENT RELEVANT IMPLANT DATA REVIEWED: YesRADIOLOGY DEPARTMENT: MR; Exam(s) Completed: Spine: Lumbar spinePERIPHERAL IV DATA: Not applicableSIGNED BY: Lucy Marks RtMarch 2017 11:36 AM Normal [facility] XR LUMBAR 4V AP/LAT/ FLEX/EX Ton 08-13-2017 [...] SPINE. DEGENERATIVE FACET DISEASE IN THE LUMBAR SPINE.Wwe Wrestler: NIKOS Transcribe Date/Time: Aug 13 2017 1:18PDictated by : JEAN LEROY MDThis examination was interpreted and the report reviewed and electronically signed by: JEAN LEROY MD on Aug 13 2017 1:21PM [id number] Normal [facility] XR THORACIC 3V AP/LAT/SWIMME RSon 08-13-2017 XR [...] SPINE. DEGENERATIVE FACET DISEASE IN THE LUMBAR SPINE.Wwe Wrestler: PSCB Transcribe Date/Time: Aug 13 2017 1:18PDictated by : JEAN LEROY MDThis examination was interpreted and the report reviewed and electronically signed by: JEAN LEROY MD on Aug 13 2017 1:21PM [id number] Normal [facility] CNOVon 08-05-2017 CNOV Office Visit (SPNMMN) ----ARYAN ROBERTS ([id number]) 1965 MDate Time Provider Department08/05/17 9:00 AM [...] visit? 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 Hxih-je-lrgd time was 40 minutes.Maeve Meza, [facility]:Aryan Nina MD[address] [place] [address]Gprts: [phone]: [phone] Provider: AIDAN EDMONDSON [[id number]]Allergies As of Date: 08/05/2017 Noted Allergy ReactionVICODIN (HYDROCODONE-ACETAMINOPHE* 9 - ItchingDate Reviewed: 08/05/2017Reviewed by: Frannie Sr Ma - Fully AssessedReason for Visit: New Patient [172]Primary Visit Diagnosis:Lumbar spondylosis [M47.816] Other Visit Diagnoses:Sciatica of right side [M54.31] DDD (degenerative disc disease), lumbar [M51.36] Arthralgia, unspecified joint [M25.50]Order(s):XR LUMBAR MOTION 4V AP/LAT/ FLEX/EXT [[id number]] Order #: [id number] FUTURE XR THORACIC GENERAL 3V AP/LAT/SWIMMERS [[id number]] Order #: [id number] FUTURE MRI LUMBAR SPINE WO IVCON [[id number]] Order #: [id number] FUTUREPrescriptions as of 08/05/2017 Sig: ADALIMUMAB 40 [...] (around 10/03/2017).Follow-up and Disposition History RecordedEncounter Number: [id number] Status:Closed by MAEVE MEZA MD on 08/07/17 Normal [facility] PROGRESSon 08-05-2017 PROGRESS HNO ID: [id number] thor: Maeve MezaService: (none)Author Type: PhysicianType: Progress NotesFiled: 08/07/2017 10:31 AMNote Text:[facility] SPINE CENTERAryan Roberts is a 52 [...] position. s/p cardiac stent placement in 06/2016 [id number]. he is following with cardiology. roberta Wolf [...] Date- CAD (coronary artery disease)- HTN (hypertension)- WA (myocardial infarction) (HCC)The patient's surgical history was [...] spent counseling and/or coordinating carefor the patient. Jeey-mm-opft time was 40 minutes.Maeve Meza, [facility]:Aryan Nina MD[address] [place] [address]Khuzd: [phone]: [phone] Normal [facility] CNCOon 07-21-2017 CNCO Letter Kosta dee D.O.Department of Rheumatic and Immunologic Disease / [id number] [place], [place], [address]Zutdzi: [phone]: [phone]: [phone] 2017Dakim Roberts[address] [place], [place] [address]UXB: 1965MRN: [id number] David:You will need to have blood work [...] ask to have results faxed to the [facility].Sincerely,Aidan Debo D.O.(Electronically Signed to [employer]) Normal [facility] C-Reactive Proteinon 018 C reactive protein (CRP) 0.3 mg/dL Normal <0.9 [facility] Comment on above: Performed By: #### C BCDIF, WSR, CMP, CRP ####[place] [address] [phone] CBC and Differentialon 07-10 Abs Baso 0.03 k/uL Normal <0.11 [facility] Comment on above: Performed By: #### C BCDIF, WSR, CMP, CRP ####[place] [address] [phone] Abs Morrow 0.41 k/uL Normal <0.87 [facility] Comment on above: Performed By: #### C BCDIF, WSR, CMP, CRP ####[place] [address] [phone] Abs Neut 3.91 k/uL Normal 1.45-7.50 [facility] Comment on above: Performed By: #### C BCDIF, WSR, CMP, CRP ####[place] [address] [address] [phone] Basophils/100 WBC Auto (Bld) 0.6 % Normal [facility] Comment on above: Performed By: #### C BCDIF, WSR, CMP, CRP ####[place] [address] [address] [phone] DTYPE Auto Diff Normal [facility] Comment on above: Performed By: #### C BCDIF, WSR, CMP, CRP ####[place] [address]levelT[address] [phone] Eosinophils 0.07 10*3/uL Normal <0.46 [facility] Comment on above: Performed By: #### C BCDIF, WSR, CMP, CRP ####[place] [address] [address] [phone] Eosinophils/100 leukocytes 1.3 % Normal [facility] Comment on above: Performed By: #### C BCDIF, WSR, CMP, CRP ####[place] [address] [phone] Erythrocyte distribution width Auto Ratio (RBC) 13.0 % Normal 11.5-15.0 [facility] Comment on above: Performed By: #### C BCDIF, WSR, CMP, CRP ####[place] [address] [phone] Erythrocytes (RBC) 5.51 10*6/uL Normal 4.20-6.00 [facility] Comment on above: Performed By: #### C BCDIF, WSR, CMP, CRP ####[place] [address] [address] [phone] Erythrocytes (RBC) 0.0 /100 WBC Normal 0 [facility] Comment on above: Performed By: #### C BCDIF, WSR, CMP, CRP ####[place] [address] [phone] Erythrocytes (RBC) 10*6/uL Normal <0.01 [facility] Comment on above: Performed By: #### C BCDIF, WSR, CMP, CRP ####[place] [address] [address] [phone] Hematocrit (HCT) 50.6 % Normal 39.0-51.0 [facility] Comment on above: Performed By: #### C BCDIF, WSR, CMP, CRP ####[place] [address] [phone] Hemoglobin mass conc (Bld) 16.8 g/dL Normal 13.0-17.0 [facility] Comment on above: Performed By: #### C BCDIF, WSR, CMP, CRP ####[place] [address] [phone] Lymphocytes 0.97 10*3/uL Low 1.00-4.00 [facility] Comment on above: Performed By: #### C BCDIF, WSR, CMP, CRP ####[place] [address] [address] [phone] Lymphocytes/100 leukocytes 18.0 % Normal [facility] Comment on above: Performed By: #### C BCDIF, WSR, CMP, CRP ####[place] [address] [phone] MCH 30.5 pG Normal 26.0-34.0 [facility] Comment on above: Performed By: #### C BCDIF, WSR, CMP, CRP ####[place] [address] [phone] MCHC mass conc (RBC) 33.2 g/dL Normal 30.5-36.0 [facility] Comment on above: Performed By: #### C BCDIF, WSR, CMP, CRP ####[place] [address] [phone] MCV 91.8 fL Normal 80.0-100.0 [facility] Comment on above: Performed By: #### C BCDIF, WSR, CMP, CRP ####[place] [address] [phone] Monocytes/100 leukocytes 7.6 % Normal [facility] Comment on above: Performed By: #### C BCDIF, WSR, CMP, CRP ####[place] [address] [phone] Neutrophils/100 WBC Auto (Bld) 72.5 % Normal [facility] Comment on above: Performed By: #### C BCDIF, WSR, CMP, CRP ####[address] [phone] Platelet mean volume (PMV) 10.0 fL Normal 9.0-12.7 [facility] Comment on above: Performed By: #### C BCDIF, WSR, CMP, CRP ####[address] [phone] Platelets 209 10*3/uL Normal 150-400 [facility] Comment on above: Performed By: #### C BCDIF, WSR, CMP, CRP ####[address] [phone] WBC (Leukocytes) 5.40 10*3/uL Normal 3.70-11.00 [facility] Comment on above: Performed By: #### C BCDIF, WSR, CMP, CRP ####[address] [phone] Comp Metabolic Panelon 07-10 Alanine aminotransferase (ALT) 27 U/L Normal 10-54 [facility] Comment on above: Performed By: #### C BCDIF, WSR, CMP, CRP ####[address] [phone] Albumin 4.7 g/dL Normal 3.9-4.9 [facility] Comment on above: Performed By: #### C BCDIF, WSR, CMP, CRP ####[address] [phone] Alkaline phosphatase (ALP) 68 U/L Normal 36-108 [facility] Comment on above: Performed By: #### C BCDIF, WSR, CMP, CRP ####[address] [phone] Anion gap 13 mmol/L Normal 9-18 [facility] Comment on above: Performed By: #### C BCDIF, WSR, CMP, CRP ####[address] [phone] Aspartate aminotransferase (AST) 17 U/L Normal 14-40 [facility] Comment on above: Performed By: #### C BCDIF, WSR, CMP, CRP ####[place] [address] [phone] Bilirubin (total) 0.5 mg/dL Normal 0.2-1.3 [facility] Comment on above: Performed By: #### C BCDIF, WSR, CMP, CRP ####[place] [address] [phone] Calcium 9.8 mg/dL Normal 8.5-10.2 [facility] Comment on above: Performed By: #### C BCDIF, WSR, CMP, CRP ####[place] [address] [phone] Chloride 105 mmol/L Normal 97-105 [facility] Comment on above: Performed By: #### C BCDIF, WSR, CMP, CRP ####[place] [address] [phone] CO2 22 mmol/L Normal 22-30 [facility] Comment on above: Performed By: #### C BCDIF, WSR, CMP, CRP ####[place] [address] [phone] Creatinine 1.06 mg/dL Normal 0.73-1.22 [facility] Comment on above: Performed By: #### C BCDIF, WSR, CMP, CRP ####[place] [address] [place] [phone] eGFR (non-black) mL/min/{1.73_m2} Normal [facility] Comment on above: Performed By: #### C BCDIF, WSR, CMP, CRP ####[place] [address] [place], [place] [phone] Result Comment: eGFR (Estimated GFR) Units of [...] Glucose mass conc 95 mg/dL Normal 74-99 [facility] Comment on above: Result Comment: The [place] Diabetes Association (ADA) provides guidance for cutoff [...] Standards of Medical Care in Diabetes 2016, [place] Diabetes Association. Diabetes Care. 2016.39(Suppl 1). Performed By: #### C BCDIF, WSR, CMP, CRP ####[facility] [place], [place] [phone] Potassium molar conc 4.3 mmol/L Normal 3.7-5.1 [facility] Comment on above: Performed By: #### C BCDIF, WSR, CMP, CRP ####[facility] [place], [place] [phone] Protein 8.0 g/dL Normal 6.3-8.0 [facility] Comment on above: Performed By: #### C BCDIF, WSR, CMP, CRP ####[place] [address] [place], [place] [phone] Sodium 140 mmol/L Normal 136-144 [facility] Comment on above: Performed By: #### C BCDIF, WSR, CMP, CRP ####[facility] [place], [place] [phone] Urea nitrogen 12 mg/dL Normal 9-24 [facility] Comment on above: Performed By: #### C BCDIF, WSR, CMP, CRP ####[facility] [address] [place], [place] [phone] PROGRESSon 07-10-2017 PROGRESS HNO ID: [id number] thor: Lisa Schroeder (Man) Vanessa Devlin: (none)Author [...] by pt, observed.Electronically Signed By: MAN Landers [facility] PROGRESS HNO ID: [id number] thor: Aidan Barr: (none)Author Type: PhysicianType: Progress NotesFiled: 07/10/2017 1:22 PMNote Text:?[facility]OLOG[facility] INSTITUTEDEPARTMENT OF RHEUMATIC [...] Date- CAD (coronary artery disease)- HTN (hypertension)- WA (myocardial infarction)PSHx:PAST SURGICAL HISTORYProcedure Laterality Date- ARTHROSCOPY [...] kg (215 lb 3.2 oz) BMI 33.88 kg/m7Mwlkxzo: Looks well, NAD, A AND Ox3.HEENT: PERRLA [...] squeeze.Able to make full 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 Knees: No effusion, no tenderness, [...] outlined in orders.Aidan Edmondson D.O.Rheumatology Staff Normal [facility] Sed Rate Westergrenon 2017 Sed Rate Westergren 5 mm/hr Normal 0-15 [facility] Comment on above: Performed By: #### C BCDIF, WSR, CMP, CRP ####[facility] [place], [place] [phone] C-Reactive Proteinon 017 C reactive protein (CRP) 0.4 mg/dL Normal <0.9 [facility] Comment on above: Performed By: #### C BCDIF, WSR, CRP, RF, URIC, CMP, HREMOP, INFTBG, CCP ####[place] [address] [phone] CBC and Differentialon 05-05 Abs Baso 0.04 k/uL Normal <0.11 [facility] Comment on above: Performed By: #### C BCDIF, WSR, CRP, RF, URIC, CMP, HREMOP, INFTBG, CCP ####[place] [address] [phone] Abs Morrow 0.54 k/uL Normal <0.87 [facility] Comment on above: Performed By: #### C BCDIF, WSR, CRP, RF, URIC, CMP, HREMOP, INFTBG, CCP ####[place] [address] [phone] Abs Neut 4.24 k/uL Normal 1.45-7.50 [facility] Comment on above: Performed By: #### C BCDIF, WSR, CRP, RF, URIC, CMP, HREMOP, INFTBG, CCP ####[place] [address] [phone] Basophils/100 WBC Auto (Bld) 0.7 % Normal [facility] Comment on above: Performed By: #### C BCDIF, WSR, CRP, RF, URIC, CMP, HREMOP, INFTBG, CCP ####[place] [address] [place] [phone] DTYPE Auto Diff Normal [facility] Comment on above: Performed By: #### C BCDIF, WSR, CRP, RF, URIC, CMP, HREMOP, INFTBG, CCP ####[place] [address] [place] [phone] Eosinophils 0.10 10*3/uL Normal <0.46 [facility] Comment on above: Performed By: #### C BCDIF, WSR, CRP, RF, URIC, CMP, HREMOP, INFTBG, CCP ####[facility] [phone] Eosinophils/100 leukocytes 1.7 % Normal [facility] Comment on above: Performed By: #### C BCDIF, WSR, CRP, RF, URIC, CMP, HREMOP, INFTBG, CCP ####[place] [address] [place] [phone] Erythrocyte distribution width Auto Ratio (RBC) 13.3 % Normal 11.5-15.0 [facility] Comment on above: Performed By: #### C BCDIF, WSR, CRP, RF, URIC, CMP, HREMOP, INFTBG, CCP ####[place] [address]levelT[address] [place] [phone] Erythrocytes (RBC) 10*6/uL Normal <0.01 [facility] Comment on above: Performed By: #### C BCDIF, WSR, CRP, RF, URIC, CMP, HREMOP, INFTBG, CCP ####[place] [address]level[address] [place] [phone] Erythrocytes (RBC) 0.0 /100 WBC Normal 0 [facility] Comment on above: Performed By: #### C BCDIF, WSR, CRP, RF, URIC, CMP, HREMOP, INFTBG, CCP ####[place] [id number] AveClevelTristan [place] [phone] Erythrocytes (RBC) 5.19 10*6/uL Normal 4.20-6.00 [facility] Comment on above: Performed By: #### C BCDIF, WSR, CRP, RF, URIC, CMP, HREMOP, INFTBG, CCP ####[facility] [place] [phone] Hematocrit (HCT) 48.7 % Normal 39.0-51.0 [facility] Comment on above: Performed By: #### C BCDIF, WSR, CRP, RF, URIC, CMP, HREMOP, INFTBG, CCP ####[place] [phone] Hemoglobin mass conc (Bld) 16.5 g/dL Normal 13.0-17.0 [facility] Comment on above: Performed By: #### C BCDIF, WSR, CRP, RF, URIC, CMP, HREMOP, INFTBG, CCP ####[place] [phone] Lymphocytes 1.00 10*3/uL Normal 1.00-4.00 [facility] Comment on above: Performed By: #### C BCDIF, WSR, CRP, RF, URIC, CMP, HREMOP, INFTBG, CCP ####[place] [phone] Lymphocytes/100 leukocytes 16.9 % Normal [facility] Comment on above: Performed By: #### C BCDIF, WSR, CRP, RF, URIC, CMP, HREMOP, INFTBG, CCP ####[place] [phone] MCH 31.8 pG Normal 26.0-34.0 [facility] Comment on above: Performed By: #### C BCDIF, WSR, CRP, RF, URIC, CMP, HREMOP, INFTBG, CCP ####[place] [phone] MCHC mass conc (RBC) 33.9 g/dL Normal 30.5-36.0 [facility] Comment on above: Performed By: #### C BCDIF, WSR, CRP, RF, URIC, CMP, HREMOP, INFTBG, CCP ####[place] [address]War[address], [place] [phone] MCV 93.8 fL Normal 80.0-100.0 [facility] Comment on above: Performed By: #### C BCDIF, WSR, CRP, RF, URIC, CMP, HREMOP, INFTBG, CCP ####[address] [place] [phone] Monocytes/100 leukocytes 9.1 % Normal [facility] Comment on above: Performed By: #### C BCDIF, WSR, CRP, RF, URIC, CMP, HREMOP, INFTBG, CCP ####[address] Av[address], [place] [phone] Neutrophils/100 WBC Auto (Bld) 71.6 % Normal [facility] Comment on above: Performed By: #### C BCDIF, WSR, CRP, RF, URIC, CMP, HREMOP, INFTBG, CCP ####[address] Av[address], [place] [phone] Platelet mean volume (PMV) 10.2 fL Normal 9.0-12.7 [facility] Comment on above: Performed By: #### C BCDIF, WSR, CRP, RF, URIC, CMP, HREMOP, INFTBG, CCP ####[address] [phone] Platelets 209 10*3/uL Normal 150-400 [facility] Comment on above: Performed By: #### C BCDIF, WSR, CRP, RF, URIC, CMP, HREMOP, INFTBG, CCP ####[address], [place] [phone] WBC (Leukocytes) 5.93 10*3/uL Normal 3.70-11.00 [facility] Comment on above: Performed By: #### C BCDIF, WSR, CRP, RF, URIC, CMP, HREMOP, INFTBG, CCP ####[facility] [place], [place] [phone] CCP Antibody, IgGon 05-05-20 17 CCP Antibody, IgG <15 Normal <20 [facility] Comment on above: Result Comment: < 20 units: Gxjybkon89-05 units: Weak Vbnebsvn74-81 units: Moderate Positive> 60 units: Strong Positive Performed By: #### C BCDIF, WSR, CRP, RF, URIC, CMP, HREMOP, INFTBG, CCP ####[facility] [address] [place], [place] [phone] CNOVon 05-05-2017 CNOV Office Visit (RHEUMN) ----ARMIDAARYAN ([id number]) 1965 MDate Time Provider Chkbfmcojs12/28/17 12:40 PM AIDAN EDMONDSON During your visit today, we recorded the following information about you: Temperature Pulse Blood pressure Weight 98.2 degrees 80/minute 141/85 98.2 kg Height 1.698 Alicia Edmondson DO 05/07/2017 2:12 PM Signed?[facility] AND[facility]; RHEUMATOLOGIC INSTITUTEDEPARTMENT OF RHEUMATIC [...] rotator cuff.In Jun 2016 he sustained an WA and underwent PCI. He was stented again in November2016.He was evaluated by Rheumatology at [facility] and was diagnosed withseronegative RA. He has [...] Date- CAD (coronary artery disease)- HTN (hypertension)- WA (myocardial infarction)PSHx:PAST SURGICAL HISTORYProcedure Laterality Date- ARTHROSCOPY [...] kg (216 lb 6.4 oz) BMI 34.06 kg/w7Eprwnmw: Looks well, NAD, A ANDamp; Ox3.HEENT: EOMs [...] 1.00 - 4.00 k/uL 1.00Mono% % 9.1Abs Morrow ANDlt;0.87 k/uL 0.54Eosin% % 1.7Abs Eosin ANDlt;0.46 [...] [M54.41, G89.29]Order(s):URIC ACID BLOOD [SQURIC] Order #: [id number] FUTURE CBC + DIFF [SQCBCDIF] Order #: [id number] FUTURE COMP METABOLIC PANEL [SQCMP] Order #: [id number] FUTURE RHEUMATOID FACTOR BL [SQRF] Order #: [id number] FUTURE CCP ANTIBODY IGG [SQCCP] Order #: [id number] FUTURE XR HAND GENERAL 3V PA/LAT/OBL LT [0649116] Order #: [id number] FUTURE XR HAND GENERAL 3V PA/LAT/OBL RT [7002581] Order #: [id number] FUTURE CONSULT TO SPINE CENTER [19990907] Order #: [id number]: 1 C-REACTIVE PROTEIN (CRP) [SQCRP] Order #: [id number] FUTURE SED RATE WESTERGREN [SQWSR] Order #: [id number] FUTURE HEP REMOTE PANEL BL [SQHREMOP] Order #: [id number] FUTURE BLOOD TB SCREEN [SQINFTBG] Order #: [id number] FUTURE diclofenac sodium (VOLTAREN) 1 % topical [...] Status:Closed by AIDAN EDMONDSON on 05/07/17 Normal [facility] Comp Metabolic Panelon 05-05 Alanine aminotransferase (ALT) 35 U/L Normal 10-54 [facility] Comment on above: Performed By: #### C BCDIF, WSR, CRP, RF, URIC, CMP, HREMOP, INFTBG, CCP ####[facility] [address] AveCWarren, [place] [phone] Albumin 4.5 g/dL Normal 3.9-4.9 [facility] Comment on above: Performed By: #### C BCDIF, WSR, CRP, RF, URIC, CMP, HREMOP, INFTBG, CCP ####[facility] [address] [place], [place] [phone] Alkaline phosphatase (ALP) 68 U/L Normal 36-108 [facility] Comment on above: Performed By: #### C BCDIF, WSR, CRP, RF, URIC, CMP, HREMOP, INFTBG, CCP ####[place] [address]CIsa[address] [place] [phone] Anion gap 14 mmol/L Normal 9-18 [facility] Comment on above: Performed By: #### C BCDIF, WSR, CRP, RF, URIC, CMP, HREMOP, INFTBG, CCP ####[place] [address]CIsa[address] [place] [phone] Aspartate aminotransferase (AST) 23 U/L Normal 14-40 [facility] Comment on above: Performed By: #### C BCDIF, WSR, CRP, RF, URIC, CMP, HREMOP, INFTBG, CCP ####[place] [address]CChrist[address] [place] [phone] Bilirubin (total) 0.2 mg/dL Normal 0.2-1.3 [facility] Comment on above: Performed By: #### C BCDIF, WSR, CRP, RF, URIC, CMP, HREMOP, INFTBG, CCP ####[place] [address] AveCCindy [place] [phone] Calcium 9.6 mg/dL Normal 8.5-10.2 [facility] Comment on above: Performed By: #### C BCDIF, WSR, CRP, RF, URIC, CMP, HREMOP, INFTBG, CCP ####[place] [address] [place] [phone] Chloride 101 mmol/L Normal 97-105 [facility] Comment on above: Performed By: #### C BCDIF, WSR, CRP, RF, URIC, CMP, HREMOP, INFTBG, CCP ####[place] [address] AveCC[address] [place] [phone] CO2 25 mmol/L Normal 22-30 [facility] Comment on above: Performed By: #### C BCDIF, WSR, CRP, RF, URIC, CMP, HREMOP, INFTBG, CCP ####[facility]CWar[place], [place] [phone] Creatinine 1.27 mg/dL High 0.73-1.22 [facility] Comment on above: Performed By: #### C BCDIF, WSR, CRP, RF, URIC, CMP, HREMOP, INFTBG, CCP ####[place] [address]CC[address] [place] [phone] eGFR (non-black) mL/min/{1.73_m2} Normal [facility] Comment on above: Performed By: #### C BCDIF, WSR, CRP, RF, URIC, CMP, HREMOP, INFTBG, CCP ####[place] [address]CC[address] [place] [phone] eGFR (non-black) 60 . Normal [facility] Comment on above: Result Comment: eGFR [...] CRP, RF, URIC, CMP, HREMOP, INFTBG, CCP ####[place] [address], [place] [phone] Glucose mass conc 112 mg/dL High 74-99 [facility] Comment on above: Result Comment: The [place] Diabetes Association (ADA) provides guidance for cutoff [...] Standards of Medical Care in Diabetes 2016, [place] [employer]. Diabetes Care. 2016.39(Suppl 1). Performed By: #### C BCDIF, WSR, CRP, RF, URIC, CMP, HREMOP, INFTBG, CCP ####[place] [phone] Potassium molar conc 4.2 mmol/L Normal 3.7-5.1 [facility] Comment on above: Performed By: #### C BCDIF, WSR, CRP, RF, URIC, CMP, HREMOP, INFTBG, CCP ####[place] [phone] Protein 7.4 g/dL Normal 6.3-8.0 [facility] Comment on above: Performed By: #### C BCDIF, WSR, CRP, RF, URIC, CMP, HREMOP, INFTBG, CCP ####[place] [phone] Sodium 140 mmol/L Normal 136-144 [facility] Comment on above: Performed By: #### C BCDIF, WSR, CRP, RF, URIC, CMP, HREMOP, INFTBG, CCP ####[place] [phone] Urea nitrogen 16 mg/dL Normal 9-24 [facility] Comment on above: Performed By: #### C BCDIF, WSR, CRP, RF, URIC, CMP, HREMOP, INFTBG, CCP ####[place] [address] [place], [place] [phone] Hepatitis Remote Panelon BSA (Body Surface Area) Negative Normal Negative [facility] Comment on above: Performed By: #### C BCDIF, WSR, CRP, RF, URIC, CMP, HREMOP, INFTBG, CCP ####[address] [phone] Hep B Core Ab,Total Negative Normal Negative [facility] Comment on above: Performed By: #### C BCDIF, WSR, CRP, RF, URIC, CMP, HREMOP, INFTBG, CCP ####[place] [address] [place], [place] [phone] Hepatitis C Ab IA Negative Normal Negative [facility] Comment on above: Performed By: #### C BCDIF, WSR, CRP, RF, URIC, CMP, HREMOP, INFTBG, CCP ####[place] [address], [place] [phone] HepB Surface Ab,Qual Negative Normal Negative [facility] Comment on above: Result Comment: NEGA TIVE Performed By: #### C BCDIF, WSR, CRP, RF, URIC, CMP, HREMOP, INFTBG, CCP ####[address] [phone] PROGRESSon 05-05-2017 PROGRESS HNO ID: [id number] thor: Beatriz () Raj AngelService: RadiologyAuthor Type: TechnicianType: Progress NotesFiled: 05/05/2017 1:56 PMNote Text: Radiology Service Progress NotePATIENT NAME: Aryan RobertsMRN: [id number] OF SERVICE: May 05, 2017TIME: 1:56 PMPATIENT IDENTITY VERIFICATION COMPLETED USING TWO (2) METHODS: Patientconfirmed name verbally and Date of .PATIENT GENDER DATA: MalePATIENT RELEVANT IMPLANT DATA REVIEWED: YesRADIOLOGY DEPARTMENT: General X-ray: Exam(s) Completed: Upper ExtremityX-Ray(s): Hand, Bilateral :PERIPHERAL IV DATA: Not applicableSIGNED BY: Beatriz Angel, RTNovember 2016 1:56 PM Normal [facility] PROGRESS HNO ID: [id number] thor: Aidan Schroeder Moisese: (none)Author Type: PhysicianType: Progress NotesFiled: 05/07/2017 2:12 PMNote Text:?[facility] RHEUMATOLOG[facility] INSTITUTEDEPARTMENT OF RHEUMATIC [...] rotator cuff.In Jun 2016 he sustained an WA and underwent PCI. He was stented again inJ2016.He was evaluated by Rheumatology at [facility] and was diagnosed withseronegative RA. He has [...] Date- CAD (coronary artery disease)- HTN (hypertension)- WA (myocardial infarction)PSHx:PAST SURGICAL HISTORYProcedure Laterality Date- ARTHROSCOPY [...] kg (216 lb 6.4 oz) BMI 34.06 kg/l8Awxzkro: Looks well, NAD, A AND Ox3.HEENT: EOMs [...] evidence of synovitis, there is pain on [id number] MTP palpation.Investigations:Lab s:Component Latest Ref Rng AND [...] 1.00 - 4.00 k/uL 1.00Mono% % 9.1Abs Morrow <0.87 k/uL 0.54Eosin% % 1.7Abs Eosin <0.46 [...] Radiology: As outlined in orders.Aidan Edmondson, Normal [facility] Rheumatoid Factoron 05-05-20 17 Rheumatoid Factor <10 Normal <16 [facility] Comment on above: Performed By: #### C BCDIF, WSR, CRP, RF, URIC, CMP, HREMOP, INFTBG, CCP ####[facility] AvVictor [place] [phone] Sed Rate Westergrenon 2016 Sed Rate Westergren 5 mm/hr Normal 0-15 [facility] Comment on above: Performed By: #### C BCDIF, WSR, CRP, RF, URIC, CMP, HREMOP, INFTBG, CCP ####[place] [address] Av[place] [phone] TB by QuantiFERONon 05-05-20 17 Interpretation No evidence of curre nt or previous infection with Mycobacterium tuberculosis. Normal [facility] Comment on above: Performed By: #### C BCDIF, WSR, CRP, RF, URIC, CMP, HREMOP, INFTBG, CCP ####[place] [address] [address] [place] [phone] Mitogen Response 7.88 IU/mL Normal >0.49 [facility] Comment on above: Performed By: #### C BCDIF, WSR, CRP, RF, URIC, CMP, HREMOP, INFTBG, CCP ####[place] [address] AvVictor [place] [phone] TB Antigen Response 0.05 IU/mL Normal <0.35 [facility] Comment on above: Performed By: #### C BCDIF, WSR, CRP, RF, URIC, CMP, HREMOP, INFTBG, CCP ####[place] [address] AveCC[address] [place] [phone] TB Result Negative Normal Negative [facility] Comment on above: Performed By: #### C BCDIF, WSR, CRP, RF, URIC, CMP, HREMOP, INFTBG, CCP ####[facility] [place], [place] [phone] Uric Acidon 05-05-2017 Urate 7.6 mg/dL Normal 4.0-8.1 [facility] Comment on above: Performed By: #### C BCDIF, WSR, CRP, RF, URIC, CMP, HREMOP, INFTBG, CCP ####[facility] [address] [place], [place] [phone] XR HAND 3V PA/LAT/OBL LTon 1 07-05-2016 [...] the right fifth metacarpalNo evidence of inflammatory arthropathy.Wwe Wrestler : NIKOS Transcribe Date/Time: May 05 2017 2:02PDictated by : Scott BEAULIEU examination was interpreted and the report reviewed and electronically signed by: JONATHAN KO MD on May 05 2017 3:02PM [id number] Normal [facility] XR HAND 3V PA/LAT/OBL RTon 1 07-05-2016 [...] the right fifth metacarpalNo evidence of inflammatory arthropathy.Wwe Wrestler : PSCB Transcribe Date/Time: May 05 2017 2:02PDictated by : Scott BEAULIEU examination was interpreted and the report reviewed and electronically signed by: JONATHAN KO MD on May 05 2017 3:02PM [id number] Normal [facility] Vital Signs Date Time Vital Sign Value Performing Clinician Facility 12-13-2024 12:01-0400 Body temperature 97.8 [degF] Dr. Cosme Berger MD Work Phone: [facility] 12-13-2024 12:01-0400 Diastolic blood pressure 87 mm[Hg] Dr. Cosme Berger MD Work Phone: [facility] 12-13-2024 12:01-0400 Heart rate 68 /min Dr. Cosme Berger MD Work Phone: [facility] 12-13-2024 12:01-0400 Respiratory rate 20 /min Dr. Cosme Berger MD Work Phone: 4(096)559-627519 [place] [address] 12-13-2024 12:01-0400 SaO2% (BldA) [Mass fraction] 94 % Dr. Cosme Berger MD Work Phone: 9(026)967-874719 [place] [address] 12-13-2024 12:01-0400 Systolic blood pressure 114 mm[Hg] Dr. Cosme Berger MD Work Phone: 4(727)411-678419 [place] [address] 12-13-2024 09:47-0400 Body height 170.[address] Cosme Berger MD Work Phone: 4(761)573-214919 [place] [address] 12-13-2024 09:47-0400 Body mass index (BMI) [Ratio] 35.8 kg/m2 Dr. Cosme Berger MD Work Phone: 5(943)307-940319 [place] [address] 12-13-2024 09:47-0400 Body weight 103.[address] Cosme Berger MD Work Phone: 8(263)779-401019 [place] [address] 11-30-2024 08:22-0400 Body height 170.[address] Csome Berger MD Work Phone: 0(877)055-108419 [place] [address] 11-30-2024 08:22-0400 Body mass index (BMI) [Ratio] 36.2 kg/m2 Dr. Cosme Berger MD Work Phone: 9(809)264-386819 [place] [address] 11-30-2024 08:22-0400 Body temperature 97.2 [degF] Dr. Cosme Berger MD Work Phone: 5(530)628-878519 [place] [address] 11-30-2024 08:22-0400 Body weight 104.[address] Cosme Berger MD Work Phone: [facility] 11-30-2024 08:22-0400 Diastolic blood pressure 87 mm[Hg] Dr. Cosme Berger MD Work Phone: 6(989)263-211619 [place] [address] 11-30-2024 08:22-0400 Heart rate 92 /min Dr. Cosme Berger MD Work Phone: 1(041)540-153419 [place] [address] 11-30-2024 08:22-0400 Respiratory rate 18 /min Dr. Cosme Berger MD Work Phone: 7(559)576-790319 [place] [address] 11-30-2024 08:22-0400 SaO2% (BldA) [Mass fraction] 99 % Dr. Cosme Berger MD Work Phone: 8(688)882-115919 [place] [address] 11-30-2024 08:22-0400 Systolic blood pressure 134 mm[Hg] Dr. Cosme Berger MD Work Phone: 0(367)089-544719 [place] [address] 10-18-2024 11:02-0400 Body height 170.[address] Cosme Berger MD Work Phone: 7(245)264-622419 [place] [address] 10-18-2024 11:02-0400 Body mass index (BMI) [Ratio] 35.5 kg/m2 Dr. Cosme Berger MD Work Phone: 5(203)661-801319 [place] [address] 10-18-2024 11:02-0400 Body weight 102.[address] Cosme Berger MD Work Phone: 0(943)609-338219 [place] [address] 10-14-2024 05:54-0400 Body mass index (BMI) [Ratio] 35.4 kg/m2 Dr. Cosme Berger MD Work Phone: 5(993)244-544719 [place] [address] 10-14-2024 05:54-0400 Body weight 102.[address] Cosme Berger MD Work Phone: 4(157)616-536719 [place] [address] 10-14-2024 05:54-0400 Diastolic blood pressure 84 mm[Hg] Dr. Cosme Berger MD Work Phone: 5(795)279-533719 [place] [address] 10-14-2024 05:54-0400 Heart rate 73 /min Dr. Cosme Berger MD Work Phone: [facility] 10-14-2024 05:54-0400 Respiratory rate 18 /min Dr. Cosme Berger MD Work Phone: [facility] 10-14-2024 05:54-0400 SaO2% (BldA) [Mass fraction] 97 % Dr. Cosme Berger MD Work Phone: [facility] 10-14-2024 05:54-0400 Systolic blood pressure 139 mm[Hg] Dr. Cosme Berger MD Work Phone: 3(564)154-253719 [place] [address] 10-11-2024 11:47-0400 Body temperature 98 [degF] Dr. Cosme Berger MD Work Phone: 3(984)368-621519 [place] [address] 10-11-2024 11:47-0400 Diastolic blood pressure 70 mm[Hg] Dr. Cosme Berger MD Work Phone: 6(715)824-202319 [place] [address] 10-11-2024 11:47-0400 Heart rate 78 /min Dr. Cosme Berger MD Work Phone: 3(699)495-491919 [place] [address] 10-11-2024 11:47-0400 Respiratory rate 18 /min Dr. Cosme Berger MD Work Phone: [facility] 10-11-2024 11:47-0400 SaO2% (BldA) [Mass fraction] 99 % Dr. Cosme Berger MD Work Phone: [facility] 10-11-2024 11:47-0400 Systolic blood pressure 124 mm[Hg] Dr. Cosme Berger MD Work Phone: [facility] 10-11-2024 09:06-0400 Body mass index (BMI) [Ratio] 36.6 kg/m2 Dr. Cosme Berger MD Work Phone: [facility] 10-11-2024 09:06-0400 Body weight 106.[address] Cosme Berger MD Work Phone: [facility] 08-20-2022 08:10-0400 Diastolic Blood Pressure Non-Invasive 86 1 CONSTANTINO BERGMAN MD [facility] 08-20-2022 08:10-0400 Heart rate 66 /min CONSTANTINO BERGMAN MD [facility] 08-20-2022 08:10-0400 Respiratory rate 13 /min CONSTANTINO BERGMAN MD [facility] 08-20-2022 08:10-0400 Systolic Blood Pressure Non-Invasive 125 1 CONSTANTINO BERGMAN MD [facility] 08-20-2022 08:02-0400 Diastolic Blood Pressure Non-Invasive 71 1 CONSTANTINO BERGMAN MD [facility] 08-20-2022 08:02-0400 Heart rate 77 /min CONSTANTINO BERGMAN MD [facility] 08-20-2022 08:02-0400 Respiratory rate 10 /min CONSTANTINO BERGMAN MD [facility] 08-20-2022 08:02-0400 Systolic Blood Pressure Non-Invasive 120 1 CONSTANTINO BERGMAN MD [facility] 08-20-2022 07:44-0400 Diastolic Blood Pressure Non-Invasive 97 1 CONSTANTINO BERGMAN MD [facility] 08-20-2022 07:44-0400 Heart rate 73 /min CONSTANTINO BERGMAN MD [facility] 08-20-2022 07:44-0400 Respiratory rate 16 /min CONSTANTINO BERGMAN MD [facility] 08-20-2022 07:44-0400 Systolic Blood Pressure Non-Invasive 144 1 CONSTANTINO BERGMAN MD [facility] 08-20-2022 07:30-0400 Body height 170 cm CONSTANTINO BERGMAN MD [facility] 08-20-2022 07:30-0400 Body weight 99.6 kg CONSTANTINO BERGMAN MD [facility] 08-20-2022 07:30-0400 Body weight 34.46 kg/m2 CONSTANTINO BERGMAN MD [facility] 08-20-2022 07:30-0400 Heart rate 82 /min CONSTANTINO BERGMAN MD [facility] 11-19-2021 11:12-0400 Diastolic blood pressure 72 mm[Hg] Dr. Cosme Berger Work Phone: [facility] Work Phone: 11-19-2021 11:12-0400 Heart rate 80 /min Dr. Cosme Berger Work Phone: [facility] Work Phone: 11-19-2021 11:12-0400 Systolic blood pressure 105 mm[Hg] Dr. Cosme Berger Work Phone: [facility] Work Phone: 11-19-2021 10:44-0400 Body height 170.[address] Cosme Berger Work Phone: [facility] Work Phone: 11-19-2021 10:44-0400 Body weight 94.[address] Cosme Berger Work Phone: [facility] Work Phone: 11-19-2021 10:44-0400 Respiratory rate 16 /min Dr. Cosme Berger Work Phone: [facility] Work Phone: 12-19-2020 08:26-0400 Body mass index (BMI) [Ratio] 34 kg/m2 Dr. Cosme Berger Work Phone: [facility] Work Phone: Encounters Encounter Date Encounter Type Care Provider Facility Start: 12-13-2024 Non-patient / Non-visit Dr. Peter Perea MD -[facility] Start: 12-13-2024 End: 12-13-2024 Admission to same day surgery center Dr. Peter Perea MD [facility] Start: 12-13-2024 End: 12-13-[address] Cosme Berger MD Work Phone: [facility] Start: 12-07-2024 End: 12-07-[address] Bowen Nagel MD -[facility] Work Phone: Start: 12-07-2024 End: 12-07-[address] Cosme Berger MD Work Phone: -[facility] Start: 11-30-2024 End: 11-30-[address] Peter Perea MD -[facility] Work Phone: Start: 11-30-2024 End: 11-30-[address] Cosme Berger MD Work Phone: [facility] Work Phone: Start: 11-26-2024 End: 11-26-[address] Cosme Berger MD Work Phone: [facility] Work Phone: Start: 11-26-2024 End: 11-26-2024 Patient encounter procedure Paola [facility] Work Phone: Start: 11-26-2024 End: 11-26-2024 ambulatory Cosme Berger Facility:[facility] Start: 10-18-2024 End: 10-18-[address] Juma Hamilton MD -[facility] Start: 10-18-2024 End: 10-18-[address] Cosme Berger MD Work Phone: [facility] Work Phone: Start: 10-14-2024 End: 10-14-2024 Patient encounter procedure Angie BRODERICK -[facility] Work Phone: Start: 10-14-2024 End: 10-14-2024 ambulatory Cosme Berger Facility:[facility] Start: 10-11-2024 End: 10-11-2024 Emergency department patient visit Dr. Flaquito Huerta DO -Emergency Department Work Phone: Start: 07-14-2024 End: 07-14-2024 Patient encounter procedure Jamia Summers -Laboratory Work Phone: Start: 07-14-2024 End: 07-14-2024 ambulatory Jamia Summers Facility:[facility] Start: 01-11-2024 End: 01-11-2024 ambulatory Cosme Cantonment Facility:[facility] Start: 12-18-2023 End: 12-18-2023 ambulatory [facility] Facility:[facility] Start: 10-06-2023 End: 10-06-2023 ambulatory [facility] Work Phone: Start: 10-06-2023 End: 10-06-2023 Patient encounter procedure [facility], [facility] Work Phone: Start: 11-18-2022 End: 11-19-2022 ambulatory COSME BERGER MD Facility:[facility] Start: 08-20-2022 End: 08-20-2022 ambulatory COSME BERGER MD Facility:[facility] Start: 08-20-2022 End: 08-20-2022 Minor Procedure CONSTANTINO BERGMAN MD [facility] Start: 08-05-2022 End: 08-06-2022 ambulatory COSME BERGER MD Facility:A Start: 07-08-2022 End: 07-09-2022 ambulatory CONSTANTINO BERGMAN MD Facility:B Start: 07-08-2022 End: 07-08-2022 Patient encounter procedure CONSTANTINO BERGMAN MD [facility] Start: 07-07-2022 End: 07-08-2022 ambulatory CONSTANTINO BERGMAN MD Facility:A Start: 07-07-2022 End: 07-07-2022 Patient encounter procedure CONSTANTINO BERGMAN MD [facility] Start: 05-26-2022 End: 05-26-2022 ambulatory [facility] Work Phone: Start: 05-26-2022 End: 05-26-2022 Patient encounter procedure [facility] Start: 11-19-2021 End: 11-19-[address] Cosme Berger Work Phone: [facility] Start: 11-19-2021 End: 11-19-[address] Cosme Berger Work Phone: [facility] Start: 11-18-2021 End: 11-18-[address] Cosme Berger Work Phone: [facility] Start: 08-13-2017 End: 08-13-2017 Ambulatory ANANTHA MEZA [facility] Start: 08-05-2017 End: 08-07-2017 Ambulatory ANANTHA [facility] Start: 07-10-2017 Ambulatory AIDAN Alexandre EDMONDSON [facility] Start: 07-10-2017 End: 07-10-2017 Ambulatory AIDAN EDMONDSON [facility] Start: 05-05-2017 End: 05-05-2017 Ambulatory AIDAN EDMONDSON [facility] Start: 05-05-2017 End: 05-08-2017 Ambulatory AIDAN EDMONDSON [facility] Procedures Date Procedure Procedure Detail Performing Clinician [...] med using the TPSA assay method for theGreenext chemistry system. Values obtained with differentassay methods cannot be used interchangably.When changing PSA assays in the course of monitoring apatient, additional sequential testing should be carriedout to confirm baseline values. Start: 11-03-2023 History of placement of stent for coronary artery disease History of coronary artery stent placement Angie BRODERICK Comment on above: PCI-FLORY-Mid LAD with 3.00 x 24 synergy FLORY 11/25/2016;[id number], Mid and Distal RCA all with 3.0 x 28 mm Promus synergy stents 06/25/16;FLORY to Otial Diagonal 1 (2.25X18 Fili [place]) and FLORY to mid RCA (3.0x12 Fili [place]) 11/03/23 Start: 10-06-2023 Plain x-ray of pelvi [...] Activity Detail Author Start: 12-13-2024 Patient discharge [facility] Start: 10-18-2024 X-ray of lumbosacral spine L/S Spine Min 4 Views [facility] Start: 10-18-2024 XR Spine Lumbar and Sacrum GE 4 Views [facility] Start: 10-14-2024 Evaluation of diagno stic study results [facility] Start: 10-11-2024 [facility] Start: 10-11-2024 [facility] Hepatic function panel [facility] Lipid 1996 panel - S carmencita or Plasma [facility] MR Cervical spine [facility] NM Heart Views W str ess and W radionuclide IV [facility] Work Phone: Nuclear Ab [Presence ] in Serum [facility] Work Phone: Patient Education ED Sciatica [facility] Work Phone: Patient referral [facility] Work Phone: US Carotid arteries [facility] Work Phone: Payers Date Payer Category Payer Medicare [id number] 2023 Self-pay [id number] 2022 Private Health [facility] [id number] 2020 Private Health Insurance [facility] [id number] 2016 Unknown [id number] 1966 Unknown [id number] 2.16.8 [id number] 1966 Unknown [id number] 2.16.8 40.1.050089.3.579.2.627 1966 Unknown [id number] 2.16.8 40.1.745400.3.579.2.627 1966 Unknown [id number] 2.16.8 40.1.780648.3.579.2.627 1966 Unknown [id number] 2.16.8 40.1.866882.3.579.2.627 Medicare [id number] Unknown [id number] 2.16.8 40.1.354767.3.579.2.462 Unknown [id number] 2.16.8 40.1.562172.3.579.2.462 Unknown [id number] 2.16.8 40.1.909896.3.579.2.462 Unknown [id number] 2.16.8 40.1.999504.3.579.2.462 Unknown [id number] 2.16.8 40.1.127908.3.579.2.462 Unknown [id number] 2.16.8 40.1.593379.3.579.2.462 Unknown [id number] 2.16.8 40.1.500579.3.579.2.462 Unknown [id number] 2.16.8 40.1.971958.3.579.2.462 Unknown [id number] 2.16.8 40.1.036591.3.579.2.462 Unknown [id number] 2.16.8 40.1.270627.3.579.2.462 Unknown [id number] 2.16.8 40.1.518569.3.579.2.462 Unknown [id number] 2.16.8 40.1.047017.3.579.2.462 Social History Date Type Detail Facility Start: 11-19-2021 End: 06-12-2023 Tobacco smoking status NHIS Unknown if ever smoked [facility] Start: 12-19-2020 Occasional [facility] Start: 08-22-2018 None [facility] Start: 08-22-2018 Spouse/ Signif icant Other [facility] Start: 1965 Sex Assigned At Male [facility] Start: 07-28-2020 End: 12-01-2024 Tobacco smoking status Never smoked tobacco (finding) [facility] Sex Assigned At Sex [facility] Start: 08-31-2016 Non-smoker [facility] Medical Equipment Procedure Code Equipment Code Equipment Origin al Text Equipment Identifier Dates Drug-eluting coronary artery stent, akp-vcfbyqumjnibh-jj lymer-coated ()[id number] [facility] Start: 10-30-2023 Drug-eluting coronary artery stent, jra-qgzojmkruaboq-ty lymer-coated ()[id number] FDA Start: 10-30-2023 Goals Date Patient Goal Desired Activity /State Functional Status Date Assessment Result Facility 12-13-2024 Functional status Bathroom Privilege [facility] Work Phone: 08-20-2022 Functional Status Maintained [facility] Mental Status Date Assessment Result Facility 12-13-2024 Cognitive function Voice/Name [facility] Work Phone: 08-20-2022 Mental Status Orientation Oriented x 4 [facility] Clinical Notes 06-08-2016 to 12-13-2024 Note Date & Type Note Facility 12-13-2024 History and physical note [facility] 12-13-2024 Consult note Note Date/Time December 13, 2024 10:31am [facility] Medical Records Department [address] [place] [address] Pre-Anesthesia Evaluation 12/13/24 1012 MR#: [id number] Acct: [id number] Name: ARYAN ROBERTS Rep #:[id number] : 1965 59 From: Jacob Mckinney MD PCP: Dr. 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 Hx Hospitalization Yes: 2 [facility], 10/202312/01/24 11:14 Any Problems With Anesthesia No [...] sips of water?: Yes PONV PONV - pawn shop keeper: PONV - pawn shop keeper Female No 12/01/24 11:14 HX of Motion [...] 12/13/24 09:47 Respiratory Assessment Respiratory Assessment - pawn shop keeper: Respiratory Tract Infection Hx - pawn shop keeper Hx Respiratory Tract Infection No 12/01/24 11:14 STOP Sleep Apnea STOP Sleep Apnea - pawn shop keeper: STOP Sleep Apnea - pawn shop keeper Hx Hypertension Yes: COTROLLED WITH MEDS 12/01/24 [...] Tobacco Use History Tobacco Use History - pawn shop keeper: Tobacco Use History - pawn shop keeper Tobacco Use Smoking Status Never smoker 12/01/24 11:14 Hx Tobacco Use No 12/01/24 11:14 Years Smoking Packs Smoked per Day Smoking Cessation Date was within the last 15 years Hx Smoking Cessation Date Hx Smoking Cessation No 12/01/24 11:14 Counseling Hematologic Medial History Hematologic Hx - pawn 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: 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 Hx of Blood Transfusion No 12/01/24 11:14 [...] confused, unrespo /Reproduction History /Reproductive History - pawn shop keeper: /Reproductive Hx- pawn shop keeper Hx Now No 12/01/24 11:14 Gestational Age [...] into ascending aorta (06/25/16) Atherosclerotic heart disease [place]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 Hypercholesterolemia Non-STEMI (non-ST [...] MD Cosigner Signature: Date CC: ~ Signed [facility] Work Phone: 1(295) 541-421907-08-2025 Consult note [facility] Medical Records Department [address] [place] [address] Anesthesia Postop Eval I 12/13/24 1136 MR#: [id number] Acct: [id number] Name: ARYAN ROBERTS Rep #:[id number] : 1965 59 From: Rhiannon Zendejas RNA PCP: Dr. 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 Cosme Berger MD Status:R [facility] Discharge Instructions Procedure Hernia Diet Discharge [...] to schedule 2 week follow up appointment. [phone] Test Results: Test results from this visit will be discussed in further detail at your follow- up appointment, if applicable. Discharge Plan Admission Attending Provider: Peter Perea Primary Care Provider: Cosme Berger Instructions Print Language: Jamaican Discharge Orders/Prescriptions Prescriptions: New oxycodone 5 mg [...] can be placed): Home, Self Care 12/13/24 1127Agerahrd Perea MD CC: Dr. Cosme Berger MD ~ Signed [facility]07-08-2025 History and physical note Author Peter Perea [facility] Note Date/Time December 13, 2024 12:43 pm [facility] Medical Records Department [address] [place] [address] History & Physical Exam 12/13/24 0926 MR#: [id number] Acct: [id number] Name: ARYAN ROBERTS Rep #:[id number] : 1965 59 From: Peter franklin MD PCP: Dr. Cosme Berger MD Status:R [facility] Location: [place] [address] History and Physical Date of Admission: 12/13/24 [...] into ascending aorta (06/25/16) Atherosclerotic heart disease [place]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 Hypercholesterolemia Non-STEMI (non-ST [...] General: cooperative Orientation: alert and oriented x3 HENTN Head: normal to inspection Neck Neck: normal [...] for 5 days. Peter Perea MD Pager: [facility] [address] [facility] [address] [place] [address] Office: I have examined the patient and the H&P has been reviewed. There are no clinicalchanges since date of exam. 12/13/24925 <Electronically signed by Peter Perea MD> Cosigner Signature (if applicable): CC: Dr. Peter Perea MD; Dr. Cosme Berger MD~ Signed [facility] Work Phone: 1(678) 233-647307-08-2025 Procedure note [facility] Medical Records Department [address] [place] [address] Operative Report 12/13/24 1122 MR#: [id number] Acct: [id number] Name: ARYAN ROBERTS Rep #:[id number] : 1965 59 From: Peter franklin MD PCP: Dr. 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 Cosme Berger MD~ Signed [facility]07-08-2025 Consult note [facility] Medical Records Department [address] [place] [address] Pre-Anesthesia Evaluation 12/13/24 1012 MR#: [id number] Acct: [id number] Name: ARYAN ROBERTS Rep #:[id number] : 1965 59 From: Jacob Mckinney MD PCP: Dr. 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 Hx Hospitalization Yes: 2 [facility], 10/202312/01/24 11:14 Any Problems With Anesthesia No [...] sips of water?: Yes PONV PONV - pawn shop keeper: PONV - pawn shop keeper Female No 12/01/24 11:14 HX of Motion [...] 12/13/24 09:47 Respiratory Assessment Respiratory Assessment - pawn shop keeper: Respiratory Tract Infection Hx - pawn shop keeper Hx Respiratory Tract Infection No 12/01/24 11:14 STOP Sleep Apnea STOP Sleep Apnea - pawn shop keeper: STOP Sleep Apnea - pawn shop keeper Hx Hypertension Yes: COTROLLED WITH MEDS 12/01/24 [...] Tobacco Use History Tobacco Use History - pawn shop keeper: Tobacco Use History - pawn shop keeper Tobacco Use Smoking Status Never smoker 12/01/24 11:14 Hx Tobacco Use No 12/01/24 11:14 Years Smoking Packs Smoked per Day Smoking Cessation Date was within the last 15 years Hx Smoking Cessation Date Hx Smoking Cessation No 12/01/24 11:14 Counseling Hematologic Medial History Hematologic Hx - 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 Signature: Date CC: ~ Signed [facility]07-08-2025 [facility] Medical Records Department [address] [place] [address] History Physical Exam 12/13/24925 MR#: [id number] Acct: [id number] Name: ARYAN ROBERTS Rep #: [id number] : 1965 59 From: Peter Perea MD PCP: Dr. Cosme Bergre MD Status:[facility] Location: [place] [address] History and Physical Date of Admission: 12/13/24 [...] into ascending aorta (06/25/16) Atherosclerotic heart disease [place]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 Hypercholesterolemia Non-STEMI (non-ST [...] heart attack and heart (more content not included)...[facility]07-02-2025 Progress note [facility] [address] [place] [address] OFFICE VISIT Date of Service: 12/07/24 MR#: [id number] Acct: [id number] Name: ARYAN ROBERTS Rep #: [id number] : 1965 Provider: Dr. Bella Nagel MD Age/Sex: 59/M Location: [facility] Status: Signed Intake Vital Signs 10/18/24 11:02 [...] into ascending aorta (06/25/16) Atherosclerotic heart disease [place]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 Hypercholesterolemia Non-STEMI (non-ST [...] by me, Dr. Bowen Nagel MD 12/07/24 7540. 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 Cosme Berger MD ~ [facility]07-02-2025 Progress note Author Bowen Nagel [facility] Note Date/Time December 07, 2024 2:43p m [facility] [address] [place] [address] OFFICE VISIT Date of Service: 12/07/24 MR#: [id number] Acct: [id number] Name: ARYAN ROBERTS Rep #: [id number] [...] into ascending aorta (06/25/16) Atherosclerotic heart disease [place]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 Hypercholesterolemia Non-STEMI (non-ST [...] by me, Dr. Bowen Nagel MD 12/07/24 0370. 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 Patient was in agreement. 12/07/24 9017 <Electronically signed by Bowen Nagel MD> Date _ Bowen Nagel MD Cosigner Signature: Date (if applicable) CC: Dr. Cosme Berger MD ~ [facility] Work Phone: 1(570) 456-614905-09-2025 Evaluation note* Diagnosis Onset Date Resolution Status Admit Date Atherosclerotic heart diseas e [place]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 chronic October 14, 2024 8:19am Essential hypertension chronic Ma y 2024 8:19am History of coronary artery s tent placement November 03, 2023 chronic October 14, 2024 8:19am Hypercholesterolemia chronic October 14, 2024 8:19am Coronary artery dissection June, inacti ve October 14, 2024 8:19am [facility] Work Phone: 1(190) 552-725605-09-2025 Evaluation note* Diagnosis Onset Date Resolution Status Admit Date Atherosclerotic heart diseas e [place]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 chronic October 14, [...] Lumbar radiculopathy acute October 18, 2024 10:44am [facility] Work Phone: 1(716) 468-569605-09-2025 Evaluation note* Diagnosis Onset Date Resolution Status Admit Date Atherosclerotic heart diseas e [place]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 chronic October 14, [...] 2024 10:44am Umbilical hernia acute November 8:09am [facility] Work Phone: 1(503) 263-953005-09-2025 Evaluation note* Diagnosis Onset Date Resolution Status Admit Date Atherosclerotic heart diseas e [place]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 chronic October 14, [...] Lumbar radiculopathy acute December 07, 2024 1:13pm [facility] Work Phone: 1(994) 980-444703-15-2023 Hospital Discharge instructions Patient Education 08/20/2022 07:28:33 Discharge trigger MALAIKA (58071) [facility] Discharge Instructions POST PROCEDURE INSTRUCTIONS [...] dry and remove in [address] [facility] 03-15-2023 Summary of episode [...] medication providers or retail pharmacies. Education Materials [facility] Discharge Instructions POST PROCEDURE [...] to receive it can visit one of [facility] vaccine clinics. There are many vaccine clinic locations within the [facility]. For locations and available times, please visit [email or web address] It is important to note that some COVID mobile vaccine clinics are held outdoors and may be canceled in rainy or stormy conditions. To learn more about pediatric vaccinations (ages 5-11), we invite you to visit the [facility] webpage. [email or web address]://www.[email or web address]/[email or web address]-Vfveojhoqwv-Hhmrvdjkbx-[email or web address] [email or web address].htmlTo learn more about the COVID-19 vaccine, we invite you to visit the CDC website for a list of frequently asked questions. https://www.cdc.gov/coronavirus/2019-ncov/vaccines/faq.html [facility] Patient Portal Access Instructions: Stay connected with your healthcare team and access your personal medical information anytime with the [facility] Patient Portal.If you would like a full copy of your medical records, please contact the [facility] Medical Records Department, Thursday through Thursday between 8a.m. and 4:30p.m. Please follow the directions below to access the portal: 1.Access the email account you provided upon registration to the [facility].2.Look for an invitation email from [facility].3.Open the email and access the invitation link: Accept Invitation to [facility]4.Fill in the required walker to create your account. Sign into [email or web address] with your username and password that you [...] you will allow to register on the [facility] Patient Portal for access to your information. You can also access the [facility] Patient Portal on the [employer]. Simply click on Health Records under [employer] and then click on the [employer] logo. HOW TO SAFELY DISPOSE OF PRESCRIPTION [...] Call your local pharmacy or go to http://bit.ly/2L2Ca9h to find one close to you.3.Make use of household items: Use cat litter or old coffee grounds to dispose medications if other options arenot available. Mix your drugs with these household products, seal them in an airtight container andthrow it into the garbage. Call [facility]: [phone] to be sure your drugs can be [...] Signatures Patient Education Materials Discharge trigger MALAIKA ([id number]) Medication Leaflets My discharge plan and instructions have been reviewed and explained to me and I,ARYAN ROBERTS understand my current condition and have read and understand these discharge instructions. I have received a written copy of the plan/instructions. If I have questions, I am aware that I should contact my doctor. 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 [id number] History and physical note History and Physical [...] tab(s), 0 Refill(s), 08/15/22 8:40:00 EST, Pharmacy: [id number], Myalgia Chronic pain, [...] tab(s), 0 Refill(s), 08/15/22 8:40:00 EST, Pharmacy: [facility], Myalgia Chronic pain, [...] CONSTANTINO BERGMAN MD on 08/20/2022 07:28 AM [facility] [id number] Evaluation note* Diagnosis Onset Date Resolution Status Coronary artery dissection June, acute Dizziness acute Atherosclerotic heart diseas e [place]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 chronic Essential hypertension chron ic History of coronary artery stent placement November 25, 2016 chronic Hypercholesterolemia chronic [facility] Work Phone: Consult note Author Rhiannon Mcclellan [facility] Note Date/Time December 13, 2024 11:39 am [facility] Medical Records Department [address] [place] [address] Anesthesia Postop Eval I 12/13/24 1136 MR#: [id number] Acct: [id number] Name: GRUPOPURNIMAARYAN Sera Rep #:[id number] : 1965 59 From: Rhiannon Zendejas RNA PCP: Dr. Cosme Berger MD Status:R EG [facility] Y Race: C Location: [place] [address] Anesthesia: Postop Eval I Current Vital Signs [...] 12/13/24 1139 <Electronically signed by Rhiannon Mcclellan FRUIT PICKER MACHINE OPERATOR> Date _ Rhiannon Archer Signature: Date CC: ~ Signed [facility] Work Phone: Discharge summary Author Peter Perea [facility] Note Date/Time December 13, 2024 11:27 am [facility] Medical Records Department [address] [place] [address] Instructions for Home/Discharge Instructions 12/13/24 1125 MR#: [id number] Acct: [id number] Name: ARYAN ROBERTS Rep #:[id number] : 1965 59 From: Peter franklin MD PCP: Dr. Cosme Berger MD Status:R [facility] Discharge Instructions Procedure Hernia Diet Discharge [...] to schedule 2 week follow up appointment. [phone] Test Results: Test results from this visit will be discussed in further detail at your follow- up appointment, if applicable. Discharge Plan Admission Attending Provider: Peter Perea Primary Care Provider: Cosme Berger Instructions Print Language: Jamaican Discharge Orders/Prescriptions Prescriptions: New oxycodone 5 mg [...] CC: Dr. Cosme Berger MD ~ Signed [facility] Work Phone: Evaluation + Plan note [...] 07/07/22 * XR Spine Lumbar AP/LAT/FLEX/EXT 07/07/22 [facility] Evaluation + Plan note Future Appointments Appointment Date:08/05/2022 08:00:00 AM Scheduled Provider:CONSTANTINO BERGMAN MD Location:PM Office Appointment Type:PM OV Diagnostic Tests Pending * Rheumatoid Factor 07/08/22 * Antinuclear Antibody Screen, Serum 07/08/22 [facility] Evaluation + Plan note Future Appointments Appointment Date:09/26/2022 09:00:00 AM Scheduled Provider:CONSTANTINO BERGMAN MD Location:PM Office Appointment Type:PM OV [facility] Health Pain Management Evaluation noteNo assessment information available [facility] Work Phone: Hospital course Narrative No data available for this section [facility] Hospital Discharge instructions No data available for this section [facility] progress note No data available for this section [facility] reason for referral (narrative)No reason for referral information [facility] Work Phone: Summary Purpose Family History No Family History Records Found Relationship Condition Age at Onset Recorded Date/T chad mother Coronary artery disease Unknown Rheumatic fever Unknown brother Coronary artery disease Unknown Advance Directives No Advanced Directives Records Found Advance Directive Response Recorded Date/ Time Advance Directives No June 25, 2016 11:33am Living Will No August 22, 2018 6:22pm Power of Napper Runner No August 22 6:22pm Advance Directive Response Recorded Date/ Time Advance Directives No June 25, 2016 10:33am Living Will No August 22, 2018 5:22pm Power of Napper Runner No August 22 5:22pm Advance Directive Response Recorded Date/ Time Do you have a Healthcare Power of Napper Runner? No October 11, 2024 9:17am Advance Directives No June 25, 2016 11:33am Advance Directive Response Recorded Date/ Time Do you have a Healthcare Power of Napper Runner? No October 11, 2024 9:17am Do you have a Healthcare Power of Napper Runner? No December 01, 2024 11:14am Advance Directives No June 25, 2016 11:33am Procedure Findings Note [facility] Patient Name: ARYAN ROBERTS0 [place] Date of : [address] [address] Unit Number: [id number] Procedure Note Patient Status: REG [facility] Attending Doctor: Issa Menard MD Service Date: [...] artery diss ection Dizziness Atherosclerotic heart disease [place]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 Essential hypertension History of coronary artery stent placement Hypercholesterolemia Chief Complaint Admit Date CHRONIC BACK PAIN October 11, 2024 8:27am s/p ER but something still not right M ay 2024 8:19am LUMBAR SPINE October 18, 2024 10:44 am RM 1 October 18, 2024 11:20 am Reason for Visit Admit Date Atherosclerotic heart diseas e [place]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 October 14, 2024 [...] Visit Admit Date Atherosclerotic heart diseas e [place]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 October 14, 2024 [...] Visit Admit Date Atherosclerotic heart diseas e [place]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 October 14, 2024 [...] Visit Admit Date Atherosclerotic heart diseas e [place]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 October 14, 2024 [...] section and content) DATE CREATED AUTHOR 11/27/2017 [facility] DATE CREATED AUTHOR AUTHOR'S ORGANIZ ATION 08/02/2020 [facility] DATE CREATED AUTHOR AUTHOR'S ORGANIZ ATION 11/29/2022 [facility] ([place]) DATE CREATED AUTHOR AUTHOR'S [...] Member Role: Primary Care Physician Address: Address: [address] [place] [address] [address] ELVIS CO[address] Care Team Related Persons Name: SUZIE FAY Care Team Personnel Name: COSME BERGER MD Position: P3 Physician - Family Medicine Member Role: Primary Care Physician Address: Address: [address] [place] [address] DR ELVIS COLL[address] Care Team Related Persons Name: SUZIE [...] 14, 2024 End: July 14, 2024 Jamia [place] Attending Provider Active Start : July 14, 2024 End: July 14, 2024 Jamia [place] Referring Provider Active Start : July 14, [...] Inactive Member Role/Relationship Status Dates Dr. Cosme Bergre MD Primary Care Provider Active Start: October [...] 2024 End: November 30, 2024 Dr. Cosme Beregr MD Referring Provider Active Start: November 30, [...] BE BASED ON THE PRIMARY CLINICAL RECORDS. [facility]. provides no warranty or guarantee of the accuracy or completeness of information in this document.
== END 2025-01-19 20:15 | disposition home or self-care (01) ==
PROVIDERS: Emergency Provider Emergency Medicine; PCP Family Medicine; Visit Provider Emergency Medicine
DX: M54.40 Lumbago with sciatica, unspecified side (principal); I25.10 Atherosclerotic heart disease of native coronary artery without angina pectoris; E78.00 Pure hypercholesterolemia, unspecified; I10 Essential (primary) hypertension; Z95.5 Presence of coronary angioplasty implant and graft; Z79.891 Long term (current) use of opiate analgesic; I25.2 Old myocardial infarction; Z79.82 Long term (current) use of aspirin; Z79.02 Long term (current) use of antithrombotics/antiplatelets; Z79.899 Other long term (current) drug therapy; N40.0 Benign prostatic hyperplasia without lower urinary tract symptoms; G89.29 Other chronic pain; M48.10 Ankylosing hyperostosis [Forestier], site unspecified
CPT/HCPCS: 96372; 99285

== ENCOUNTER → 2025-02-13 | Outpatient (CLI) | payer MEDICARE, SELFPAY ==
[2016-11-25 13:03] VITALS: BMI 32.7
[2025-02-13 11:32] LABS: AST(SGOT) 26 U/L (<=37); Alanine Aminotransfer ALT/SGPT 35 U/L (<=46); Albumin, Serum 4.5 g/dL (3.5-5.0); Alkaline Phosphatase 59 U/L (40-129); Bilirubin, Direct 0.16 mg/dL (0.00-0.30); Cholesterol 238 mg/dL (<=200); Globulin 3.0 g/dL (2.2-4.2); Low Density Lipoprotein Calc. 156 mg/dL; Triglycerides 204 mg/dL; Very Low Density Lipoprotein 41 mg/dL (5-40); cholesterol:hdl ratio screen 5.76
== END | disposition home or self-care (01) ==
LOC: LAB 10:09
PROVIDERS: Physician Assistant Medical; PCP Family Medicine; Referring Provider Nurse Practitioner Family; Visit Provider Nurse Practitioner Family
DX: E78.00 Pure hypercholesterolemia, unspecified (principal)
CPT/HCPCS: 36415; 80061; 80076

== ENCOUNTER 2025-04-27 13:25 | Inpatient (IN) | payer MEDICARE, SELFPAY ==
[2016-11-25 13:03] VITALS: BMI 32.7
--- NOTE | 2025-04-13 10:07 | PAT.ANE_ITS ---
Pre-Assessment Diagnosis/Proposed Procedure Planned Operative Procedure(s): ERAS, Anterior Cervical Fusion C3-4, C4-5, C5-6 AND C6-7, posterior instrumented fusion C3-4, C4-5, C5-6 and C6-7 Anesthesia History Anesthesia History - supervisor prop making: Anesthesia History - supervisor prop making Hx Hospitalization Yes: 2 [facility], 10/202304/13/25 09:29 Any Problems With Anesthesia No 04/13/25 09:29 Cholinesterase deficiency No 04/13/25 09:29 You/Your Family Experience No 04/13/25 09:29 fever (hyperthermia) with Relationship Recent Exposure to Contagious No 12/13/24 09:47 Disease Does patient have nerve No 04/13/25 09:29 stimulator Patient instructed to have device shut off --Does patient have Pacemaker or ICD? When Was Last Pacemaker Check QUESTION #4 FULL TEXT: You/Your Family Experience fever (hyperthermia) with Anesthesia Last Oral Intake Last Oral intake: Last Oral Intake NPO since Meds taken in AM with sips of water? Meds patient instructed to take am of surgery PONV PONV - supervisor prop making: PONV - supervisor prop making Female No 04/13/25 09:29 HX of Motion Sickness No 04/13/25 09:29 HX of N/V After Surgery No 04/13/25 09:29 Non-Smoker Yes 04/13/25 09:29 Duration of Surgery greater Yes 04/13/25 09:29 than 60 minutes Number of Risk Factors 2 04/13/25 09:29 PONV Score Moderate Risk 04/13/25 09:29 Height & Weight Height & Weight: Anesthesia: Height & Weight Height 5 ft 7 in 02/13/25 08:58 Respiratory Assessment Respiratory Assessment - supervisor prop making: Respiratory Tract Infection Hx - supervisor prop making Hx Respiratory Tract Infection No 04/13/25 09:29 STOP Sleep Apnea STOP Sleep Apnea - supervisor prop making: STOP Sleep Apnea - supervisor prop making Hx Hypertension Yes: CONTROLLED WITH MEDS 04/13/25 09:29 Hx Sleep Apnea Yes: NON-COMPLIANT 04/13/25 09:29 CPAP No 04/13/25 09:29 BIPAP No 04/13/25 09:29 Do you snore loudly (louder than talking or can be heard Do you often feel tired/ fatigued/ sleepy during daytime? Has anyone observed you stop breathing during sleep? STOP Results Positive 04/13/25 09:29 QUESTION #5 FULL TEXT : Do you snore loudly (louder than talking or can be heard through closed doors)? 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 Specify any problems Hx of Preganancy in last 3 N/A 04/13/25 09:29 Months Nurse Filling Out Transfusion VCHRISTIN 04/13/25 09:29 & Questions: Date: 04/13/25 04/13/25 09:29 Time: 09:30 04/13/25 09:29 Patient unable to answer at this time (ie. confused, unrespo /Reproduction History /Reproductive History - supervisor prop making: /Reproductive Hx- supervisor prop making Hx Now No 04/13/25 09:29 Gestational Age (in weeks): EDC: Hx Hx Para Hx Section SAB No 04/13/25 09:29 Does the father of the baby or his family experience fever w Father of the baby Malignant Hypertension history comment [facility] Medical History (Updated 04/13/25 @ 09:37 by Marquita Roman) Pre-op testing Wears glasses History of steroid therapy Arthritis Kidney stones High cholesterol Gastric reflux Non-smoker Sleep apnea Shortness of breath on exertion History of pain when walking Obesity (BMI 30-39.9) Bulging of cervical intervertebral disc Back pain History of echocardiogram History of stress test Cardiology follow-up encounter Umbilical hernia Coronary artery dissection (~06/25/16) Essential hypertension Inflammatory polyarthropathy BPH (benign prostatic hyperplasia) GERD (gastroesophageal reflux disease) 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 Hypercholesterolemia Non-STEMI (non-ST elevated myocardial infarction) Home Medications ?Medication ?Instructions ?Recorded ?Last Taken ?Type fenofibrate 160 mg tablet 160 mg PO DAILY CHOLESTEROL 06/12/23 12/13/24 History aspirin 81 mg chewable tablet 81 mg PO DAILY HEART HEA LTH 10/29/23 12/07/24 History doxazosin 4 mg tablet 4 mg PO QHS BPH #90 TABLETS 01/18/24 10/10/24 Rx ezetimibe 10 mg tablet 10 mg PO DAILY CHOLESTEROL # 90 05/16/24 12/13/24 Rx TABLETS artificial tears(hypromellose) 0.3 1 drp EACH EYE BID PRN dry eye(s) 10/11/24 Unknown History % eye drops cholecalciferol (vitamin D3) 50 50 mcg PO QODAY SUPPLE MENT 10/11/24 10/10/24 History mcg (2,000 unit) capsule folic acid 800 mcg tablet 800 mcg PO BID SUPPLEMENT 10/11/24 History losartan 25 mg tablet 12.5 mg PO DAILY BP 02/13/25 Unknown History omeprazole 20 mg capsule,delayed 20 mg PO QDAY GERD Unknown History release baclofen 10 mg tablet 10 mg PO 4X/DAY PAIN 5 Unknown History Allergy/AdvReac Type Severity Reaction Status Date / Time atorvastatin (From Lipitor) AdvReac Severe mylagias Verified 04/13/25 09:09 evolocumab (From Repatha AdvReac Severe Blurred Verified 04/13/25 09:09 SureClick) vision metoprolol AdvReac Severe Rash Verified 04/13/25 09:09 hydrocodone bitartrate (From AdvReac Intermediate Itching Verified 04/13/25 09:09 Vicodin) pravastatin AdvReac GI upset Verified 04/13/25 09:09 and sore mouth Family History Mother , age 64 CAD (coronary artery disease) Rheumatic fever Brother CAD (coronary artery disease) Surgical History (Updated 04/13/25 @ 09:28 by Marquita Roman) History of cardiac catheterization History of umbilical hernia repair (~12/2024) H/O shoulder surgery History of colonoscopy (~10/2019) Hx of abdominal surgery (~10/2019) Hx of hand surgery History of coronary artery stent placement (11/03/23) Social History Smoking Status: Never smoker alcohol intake: current alcohol intake frequency: a few times a month substance use type: does not use caffeine: Yes Type: coffee Number of servings: 1 Audit: Pertinent Findings HISTORY of Pertinent Findings History of Pertinent Findings: 59-year-old gentleman with a history of coronary artery disease disease with 3 drug-eluting stents to RCA in June 2016 . The patient had undergone a PCI and had a retrograde dissection of the proximal portion of the aorta. He was transferred emergently after placement of a Synergy stent. He had previously had drug-eluting stent placed to left anterior descending artery and a right coronary artery stent. He was evaluated at [facility] in October 2023 for chest discomfort. He underwent chest CTA on 10/29/2023 that showed aorta to be unremarkable with normal caliber and no evidence of dissection. He proceeded with heart catheterization that showed left main with 30% stenosis, previous LAD stent is patent, ostial diagonal 1 with 99% stenosis, left circumflex with mild disease, OM1 with proximal 20-30% stenosis, and mid RCA with 80% in-stent restenosis. He underwent drug-eluting stent to ostial diagonal 1 and mid RCA. Echocardiogram showed an ejection fraction of 65%. Pertinent Findings EKG Perinent findings: 10/2024: NSR Stress test pertinent findings: Stress Test Report 06-20-2020 Procedure: Pharmacologic stress nuclear imaging study The patient underwent pharmacologic (Regadenoson) evaluation with a peak heart rate of 99 beats per minute (59%predicted maximal heart rate) and a peak blood pressure of 138/88 mmHg. The baseline ECG demonstrated normal sinus rhythm. The peak pharmacologic ECG demonstrated no obvious ECG changes. There were no cardiac dysrhythmias pretest, during pharmacologic infusion, or recovery. There was no complaint of chest discomfort during pharmacologic infusion or recovery. The examination was discontinued secondary to completion of protocol. Impression: 1. Pharmacologic (Regadenoson) evaluation 2. Peak pharmacologic ECG with no obvious ECG changes. 3. There were no cardiac dysrhythmias pretest, during pharmacologic infusion, or recovery. 4. Nuclear images pending Echo (EF%) pertinent findings: Echocardiogram from 10/2023: Interpretation Summary The estimated ejection fraction is 65 %. No evidence for diastolic dysfunction. Heart catheterization pertinent findings: PCI-FLORY-Mid LAD with 3.00 x 24 synergy FLORY 11/25/2016; [id number], Mid and Distal RCA all with 3.0 x 28 mm Promus synergy stents 06/25/16; FLORY to Otial Diagonal 1 (2.25X18 [place]) and FLORY to mid RCA (3.0x12 [place]ili [place]) 11/03/23 Additional pertinent findings: Coronary artery dissection: Status: Chronic Comment: Retrograde dissection in the right coronary artery into the ascending aortic root Plan: Chest CTA in October 2023 showed no concerns. He will continue heart rate and blood pressure control. Will continue to monitor with regular CT scans a Recommendation Anesthesia Recommendation Anesthesia recommendation: F/U recommended (Obtain cardiac clearance )
[2025-04-13 10:46] LABS: Hematocrit 47.9 % (40-54); Hemoglobin 15.9 g/dL (13.0-16.5); Immature Granulocytes Count 0.010 X10^3/uL (0.0-0.0); Mean Corp Hgb Conc 33.2 g/dL (32-36); Mean Corpuscular Volume 91.1 fL (80-94); Mean Platelet Vol. 10.6 fl (6.2-12.0); NRBC Flagged by Analyzer 0 % (0-5); Platelet Count 251 K/mm3 (150-450); RBC Distribution Width CV 13.2 % (11.6-14.6); RBC Distribution Width SD 44.8 fl (35.1-43.9); Red Blood Count 5.26 M/mm3 (4.6-6.2); White Blood Count 4.8 K/mm3 (4.4-11.0)
[2025-04-13 11:19] LABS: Magnesium 2.4 mg/dL (1.5-2.2)
[2025-04-13 11:20] LABS: Anion Gap 9 (5-15); BUN 15 mg/dL (4-19); BUN/Creat Ratio 12.4 RATIO (10-20); Calcium,Total 9.9 mg/dL (7.6-11.0); Carbon Dioxide 25.0 mmol/L (21.0-32.0); Chloride 109 mmol/L (98-108); Glucose 138 mg/dL (70-99); Potassium 4.2 mmol/L (3.3-5.1)
--- NOTE | 2025-04-13 16:05 | PAT.ANE_ITS ---
Pre-Assessment Diagnosis/Proposed Procedure Planned Operative Procedure(s): ERAS, Anterior Cervical Fusion C3-4, C4-5, C5-6 AND C6-7, posterior instrumented fusion C3-4, C4-5, C5-6 and C6-7 Anesthesia History Anesthesia History - patient transport officer: Anesthesia History - patient transport officer Hx Hospitalization Yes: 2 STENTS [facility], 10/202304/13/25 09:29 Any Problems With Anesthesia No 04/13/25 09:29 Cholinesterase deficiency No 04/13/25 09:29 You/Your Family Experience No 04/13/25 09:29 fever (hyperthermia) with Relationship Recent Exposure to Contagious No 12/13/24 09:47 Disease Does patient have nerve No 04/13/25 09:29 stimulator Patient instructed to have device shut off --Does patient have Pacemaker or ICD? When Was Last Pacemaker Check QUESTION #4 FULL TEXT: You/Your Family Experience fever (hyperthermia) with Anesthesia Last Oral Intake Last Oral intake: Last Oral Intake NPO since Meds taken in AM with sips of water? Meds patient instructed to take am of surgery PONV PONV - patient transport officer: PONV - patient transport officer Female No 04/13/25 09:29 HX of Motion Sickness No 04/13/25 09:29 HX of N/V After Surgery No 04/13/25 09:29 Non-Smoker Yes 04/13/25 09:29 Duration of Surgery greater Yes 04/13/25 09:29 than 60 minutes Number of Risk Factors 2 04/13/25 09:29 PONV Score Moderate Risk 04/13/25 09:29 Height & Weight Height & Weight: Anesthesia: Height & Weight Height 5 ft 7 in 02/13/25 08:58 Respiratory Assessment Respiratory Assessment - patient transport officer: Respiratory Tract Infection Hx - patient transport officer Hx Respiratory Tract Infection No 04/13/25 09:29 STOP Sleep Apnea STOP Sleep Apnea - patient transport officer: STOP Sleep Apnea - patient transport officer Hx Hypertension Yes: CONTROLLED WITH MEDS 04/13/25 09:29 Hx Sleep Apnea Yes: NON-COMPLIANT 04/13/25 09:29 CPAP No 04/13/25 09:29 BIPAP No 04/13/25 09:29 Do you snore loudly (louder than talking or can be heard Do you often feel tired/ fatigued/ sleepy during daytime? Has anyone observed you stop breathing during sleep? STOP Results Positive 04/13/25 09:29 QUESTION #5 FULL TEXT : Do you snore loudly (louder than talking or can be heard through closed doors)? Tobacco Use History Tobacco Use History - patient transport officer: Tobacco Use History - patient transport officer Tobacco Use Smoking Status Never smoker 04/13/25 09:29 Hx Tobacco Use No 04/13/25 09:29 Years Smoking Packs Smoked per Day Smoking Cessation Date was within the last 15 years Hx Smoking Cessation Date Hx Smoking Cessation No 04/13/25 09:29 Counseling Hematologic Medial History Hematologic Hx - patient transport officer: Hematologic Medical Hx - veterinary medical officer Hx of Blood Transfusion No 04/13/25 09:29 Hx of Transfusion in last 3 No 04/13/25 09:29 Months Date of Last Transfusion (if within last 3 months) Ever experience any problems No 04/13/25 09:29 with transfusion(s)? Specify any problems Hx of Preganancy in last 3 N/A 04/13/25 09:29 Months Nurse Filling Out Transfusion VCHRISTIN 04/13/25 09:29 & Questions: Date: 04/13/25 04/13/25 09:29 Time: 09:30 04/13/25 09:29 Patient unable to answer at this time (ie. confused, unrespo /Reproduction History /Reproductive History - patient transport officer: /Reproductive Hx- patient transport officer Hx Now No 04/13/25 09:29 Gestational Age (in weeks): EDC: Hx Hx Para Hx Section SAB No 04/13/25 09:29 Does the father of the baby or his family experience fever w Father of the baby Malignant Hypertension history comment [facility] Medical History (Updated 04/13/25 @ 09:37 by Marquita Roman) Pre-op testing Wears glasses History of steroid therapy Arthritis Kidney stones High cholesterol Gastric reflux Non-smoker Sleep apnea Shortness of breath on exertion History of pain when walking Obesity (BMI 30-39.9) Bulging of cervical intervertebral disc Back pain History of echocardiogram History of stress test Cardiology follow-up encounter Umbilical hernia Coronary artery dissection (~06/25/16) Essential hypertension Inflammatory polyarthropathy BPH (benign prostatic hyperplasia) GERD (gastroesophageal reflux disease) 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 Hypercholesterolemia Non-STEMI (non-ST elevated myocardial infarction) Home Medications ?Medication ?Instructions ?Recorded ?Last Taken ?Type fenofibrate 160 mg tablet 160 mg PO DAILY CHOLESTEROL 06/12/23 12/13/24 History aspirin 81 mg chewable tablet 81 mg PO DAILY HEART HEA LTH 10/29/23 12/07/24 History doxazosin 4 mg tablet 4 mg PO QHS BPH #90 TABLETS 01/18/24 10/10/24 Rx ezetimibe 10 mg tablet 10 mg PO DAILY CHOLESTEROL # 90 05/16/24 12/13/24 Rx TABLETS artificial tears(hypromellose) 0.3 1 drp EACH EYE BID PRN dry eye(s) 10/11/24 Unknown History % eye drops cholecalciferol (vitamin D3) 50 50 mcg PO QODAY SUPPLE MENT 10/11/24 10/10/24 History mcg (2,000 unit) capsule folic acid 800 mcg tablet 800 mcg PO BID SUPPLEMENT 10/11/24 History losartan 25 mg tablet 12.5 mg PO DAILY BP 02/13/25 Unknown History omeprazole 20 mg capsule,delayed 20 mg PO QDAY GERD Unknown History release baclofen 10 mg tablet 10 mg PO 4X/DAY PAIN 5 Unknown History Allergy/AdvReac Type Severity Reaction Status Date / Time atorvastatin (From Lipitor) AdvReac Severe mylagias Verified 04/13/25 09:09 evolocumab (From Repatha AdvReac Severe Blurred Verified 04/13/25 09:09 SureClick) vision metoprolol AdvReac Severe Rash Verified 04/13/25 09:09 hydrocodone bitartrate (From AdvReac Intermediate Itching Verified 04/13/25 09:09 Vicodin) pravastatin AdvReac GI upset Verified 04/13/25 09:09 and sore mouth Family History Mother , age 64 CAD (coronary artery disease) Rheumatic fever Brother CAD (coronary artery disease) Surgical History (Updated 04/13/25 @ 09:28 by Marquita Roman) History of cardiac catheterization History of umbilical hernia repair (~12/2024) H/O shoulder surgery History of colonoscopy (~10/2019) Hx of abdominal surgery (~10/2019) Hx of hand surgery History of coronary artery stent placement (11/03/23) Social History Smoking Status: Never smoker alcohol intake: current alcohol intake frequency: a few times a month substance use type: does not use caffeine: Yes Type: coffee Number of servings: 1 Audit: Pertinent Findings HISTORY of Pertinent Findings History of Pertinent Findings: EKG Pertinent Findings EKG Perinent findings 10/2024: NSR 04/13/25 10:10 Stress Test Pertinent Findings Stress test pertinent findings Stress Test Report 06-20-2020 04/13/25 10:10 Procedure: Pharmacologic stress nuclear imaging study The patient underwent pharmacologic (Regadenoson) evaluation with a peak heart rate of 99 beats per minute (59%predicted maximal heart rate) and a peak blood pressure of 138/88 mmHg. The baseline ECG demonstrated normal sinus rhythm. The peak pharmacologic ECG demonstrated no obvious ECG changes. There were no cardiac dysrhythmias pretest, during pharmacologic infusion, or recovery. There was no complaint of chest discomfort during pharmacologic infusion or recovery. The examination was discontinued secondary to completion of protocol. Impression: 1. Pharmacologic ( Regadenoson) evaluation 2. Peak pharmacologic ECG with no obvious ECG changes. 3. There were no cardiac dysrhythmias pretest, during pharmacologic infusion, or recovery. 4. Nuclear images pending Echo Pertinent Findings Echo (EF%) pertinent findings Echocardiogram from 10/2023: 04/13/25 10:10 Interpretation Summary The estimated ejection fraction is 65 %. No evidence for diastolic dysfunction. Heart Catheterization Pertinent Findings Heart catheterization PCI-FLORY-Mid LAD with 3.00 x 04/13/25 10:10 pertinent findings 24 synergy FLORY 11/25/2016; [id number], Mid and Distal RCA all with 3.0 x 28 mm Promus synergy stents ; FLORY to Otial Diagonal 1 (2. 25X18 [place]) and FLORY to mid RCA (3.0x12 [place]) 11/03/23 Additional Pertinent Findings Additional pertinent findings Coronary artery dissection: 04/13/25 10:10 Status: Chronic Comment: Retrograde dissection in the right coronary artery into the ascending aortic root Plan: Chest CTA in October 2023 showed no concerns. He will continue heart rate and blood pressure control. Will continue to monitor with regular CT scans a Recommendation Anesthesia Recommendation Anesthesia recommendation: OPTIMIZED for anesthesia
[2025-04-27] VITALS (19 sets, daily range): BP systolic 101–156; BP diastolic 58–98; PULSE 76–107; RESP 16–20; TEMP 36.1–37.1; O2SAT 80–98; BMI 34.7
--- OUTSIDE RECORDS SUMMARY | 2025-04-27 05:58 | XMS RPT_ITS | CCD ---
Author Organization [facility] CliniSyct Care Team Providers Care Viscose Cellar Charge Hand Name Role Phone FRANCISCO, AIDAN A Unavailable Unavailable FRANCISCO, AIDAN A Unavailable Unavailable FRANCISCO, AIDAN A Unavailable Unavailable FRANCISCO, AIDAN A Unavailable Unavailable FRANCISCO, AIDAN A Unavailable Unavailable FRANCISCO, AIDAN A Unavailable Unavailable MEZA, ANANTHA Unavailable Unavailable FRANCISCO, AIDAN A Unavailable Unavailable MEZA, ANANTHA Unavailable Unavailable MEZA, ANANTHA Unavailable Unavailable Dr. Cosme Berger Primary Care Provider Dr. Cosme Berger Referring Provider [phone] [facility] CREW SUPERVISOR, CREW SUPERVISOR-Aashish Trent Attending Provider [phone] AB JIN, COSME Flood Primary Care Physician [phone] PACHECO JIN, CONSTANTINO Austin Attending Unavail marge [...] Hilliard Attending Provider Paola Funk Attending Provider Joy JIN, Dr. Dennison Attending Provider [phone] Ab JIN, Dr. Donaldson Primary Care Provider Paola Funk Referring Provider [phone] Eliazar JIN, Dr. Green Attending Provider Robe JIN, Dr. Wiseman Attending Provider Eliazar JIN, Dr. Green Referring Provider Eliazar JIN, Dr. Green Other Provider Robe JIN, Dr. Wiseman Referring Provider Madi ARREOLA, Dr. Ott Emergency Provider [phone] Madi ARREOLA, Dr. Ott Attending Provider [phone] Ab JIN, Dr. Donaldson Primary Care Provider Ab JIN, Dr. Donaldson Referring Provider [phone] Gillian CREW SUPERVISOR-C, Olayinka Trent Attending Provider Ab JIN, Dr. Donaldson Primary Care Provider Paola Funk Attending Provider [phone] Ab JIN, Dr. Donaldson Referring Provider [phone] Gillian CREW SUPERVISOR-C, Olayinka Trent Referring Provider Bowen Nagel Attending Unavailable Ab, Cosme Primary Care Unavailable Ab, Cosme Referring Unavailable Ab, Cosme Primary Care Unavailable Peter Perea Referring Unavailable Peter Perea Attending Unavailable Peter Perea Consulting Unavailable Ab, Cosme Primary Care Unavailable Olayinka French NP Attending Unavailable Ab, Cosme Referring Unavailable Ab, Cosme Primary Care Unavailable Ab, Cosme Referring Unavailable Peter Perea Attending Unavailable Bowen Nagel Attending Unavailable Ab, Cosme Primary Care Unavailable Ab, Cosme Referring Unavailable Ab, Cosme Primary Care Unavailable Juma Hamilton Attending Unavailable Ab, Cosme Primary Care Unavailable JoyJuma petit Attending Unavailable Ab, Cosme Primary Care Unavailable Ab, Cosme Referring Unavailable Angie Hilliard Attending Unavail able Ab, Cosme Primary Care Unavailable Ab, Cosme Referring Unavailable Paola Gould Attending Unavailable Nagel, Bowen Attending Unavailable Ab, Cosme Primary Care Unavailable Ab, Cosme Referring Unavailable Ab, Cosme Primary Care Unavailable Roof CREW SUPERVISOR, Olayinka H Referring Unavailable Roof CREW SUPERVISOR, Olayinka H Attending Unavailable Ab, Cosme Primary Care Unavailable Luis Fernando, Paola Referring Unavailable Luis Fernando, Paola Attending Unavailable Nagel, Bowen Referring Unavailable Nagel, Bowen Attending Unavailable Ab, Cosme Primary Care Unavailable Nagel, Bowen Admitting Unavailable [place], Jamia Attending Unavailable Ab, Cosme Primary Care Unavailable [place], Jamia Referring Unavailable Ab, Cosme Primary Care Unavailable Tru Brito Attending Unavailable Ab, Cosme Primary Care Unavailable Flaquito Huerta Attending Unavailable Ab, Cosme Primary Care Unavailable Peter Perea Attending Unavailable Caldorita Peter Referring Unavailable Nagel, Bowen Referring Unavailable Nagel, Bowen Attending Unavailable Ab, Cosme Primary Care Unavailable Allergies Allergy Classification Reported Allergen(s) Allergy Type Date of Onset Reaction(s) Facility (1 source) acetaminophen / HYDROcodone; Translations: [HYDROCODONE-ACET AMINOPHEN] Drug Allergy 7 AOF [facility] Repository (15 sources) atorvastatin Drug Allergy 2 mylagias [facility] (15 sources) evolocumab; Translations: [evolocumab] Drug Allergy 2 headache, flu-like symptoms, arthritic pain, Blurred vision [facility] (16 sources) HYDROcodone; Translations: [hydrocodone bitartrate] Drug Allergy 2 Itching [facility] (18 sources) Pravastatin; Translations: [pravastatin] Drug Allergy 2 Adverse reaction to drug (disorder) [facility] (3 sources) Acetaminophen / HYDROcodone; Translations: [acetaminophen-hy drocodone] Drug Allergy [facility] (3 sources) celecoxib; Translations: [celecoxib] [...] Drug Allergy Adverse reaction to drug (disorder) [facility] (3 sources) meloxicam; Translations: [meloxicam] Drug Allergy Adverse reaction to drug (disorder) [facility] (3 sources) Methocarbamol; Translations: [methocarbamol] Drug Allergy Adverse reaction to drug (disorder) [facility] (3 sources) montelukast; Translations: [montelukast] Drug Allergy Adverse reaction to drug (disorder) [facility] (3 sources) nabumetone; Translations: [nabumetone] Drug Allergy Reaction (qualifier value) [facility] (3 sources) pitavastatin; Translations: [pitavastatin] Drug Allergy [facility] (3 sources) predniSONE; Translations: [prednisone] Drug Allergy Adverse reaction to drug (disorder) [facility] (3 sources) pregabalin; Translations: [pregabalin] Drug Allergy Adverse reaction to drug (disorder) [facility] (3 sources) rosuvastatin; Translations: [rosuvastatin] Drug Allergy Adverse reaction to drug (disorder) [facility] (3 sources) Simvastatin; Translations: [simvastatin] Drug Allergy Reaction (qualifier value) [facility] (3 sources) tamsulosin; Translations: [tamsulosin] Drug Allergy Adverse reaction to drug (disorder) [facility] (3 sources) tiZANidine; Translations: [tizanidine] Drug Allergy Adverse reaction to drug (disorder) [facility] (3 sources) topiramate; Translations: [topiramate] Drug Allergy Adverse reaction to drug (disorder) [facility] (3 sources) traMADol; Translations: [tramadol] Drug Allergy Adverse reaction to drug (disorder) [facility] (12 sources) Metoprolol Drug Allergy 4 Rash [facility] (1 source) atorvastatin Drug Allergy 5 [facility] Repository (1 source) Metoprolol Drug Allergy 5 [facility] (1 source) Pravastatin Drug Allergy 5 [facility] Repository Medications Current Medications Medication Drug [...] effects., # 90 tab(s), 0 Refill(s), Pharmacy: [id number], [id number], cm, 07/07/22 9:03:00 EST, [...] Start: 11-19-2021 take 3000 [IU] by mo [facility] once daily Cholecalciferol (Vitamin D3) Active 3000 UNIT PO DAILY November 19, 2021 11:00am Start: 06-11-2020 End: 11-19-2021 take 1 capsule by mouth once daily Cholecalciferol (Vitamin D3) 25 mcg (1,000 unit) capsule Discontinued 25 ug PO DAILY June 11, 2020 1:00am November 19, 2021 11:01am folic acid 0.8 mg oral tablet (20 sources) Start: 10-11-2024 take 1 tablet by [...] 2023 1:00am hypromellose 3 mg/ml ophthalmic solution (11 sources) Start: 10-11-2024 take 0.3 drop(s) into [...] (20 sources) Angiotensin 2 Receptor Lobo Start: 02-13-2025 Losartan 25 mg tablet Active 12.5 mg PO DAILY February 13, 2025 9:03am Start: 10-11-2024 End: 02-13-2025 take 1 tablet by mouth once daily Losartan 25 mg tablet Discontinued 25 mg PO DAILY October 11, 2024 12:00am February 13, 2025 9:04am Start: 01-18-2024 End: 10-10-2024 Losartan 25 mg [...] 11, 2016 1:00am June 29, 2017 6:20pm omeprazole 20 mg delayed release oral capsule (20 sources) Proton Pump Inhibitor Start: 02-13-2025 take 1 capsule by mouth once daily Omeprazole 20 mg capsule,delayed release(DR/EC) Active 20 mg PO daily February 13, 2025 12:00am Start: 10-11-2024 End: 12-01-2024 take 1 capsule [...] 22, 2018 12:00am October 29, 2023 4:51pm traZODone hydrochloride 150 mg oral tablet (20 [...] tablet,chewable Discontinued 81 mg PO DAILY@0800 90 3 January 24, 2021 11:39am October 29, 2023 5:08pm atorvastatin 80 mg oral tablet (15 sources) HMG-CoA Reductase Inhibitor Start: 07-03-2017 End: 08-06-2017 take 1 tablet by mouth once daily Atorvastatin 80 mg tablet Discontinued 80 mg PO daily July 03, 2017 1:00am August 06, 2017 1:47pm 12 hr buPROPion hydrochloride 150 mg extended release oral tablet (15 sources) Aminoketone Start: 11-19-2021 End: 10-29-2023 take 1 tablet by mouth twice daily Bupropion Hcl 150 mg tablet sustained-release 12 hr Discontinued 150 mg PO TWICE A DAY November 19, 2021 12:00am October 29, 2023 5:03pm DEPRESSION clindamycin 10 mg/ml topical lotion (11 sources) Lincosamide Antibacterial Start: 10-14-2024 End: 12-01-2024 Clindamycin Phosphate 1 % lotion Discontinued TOPICAL October 14, 2024 12:00am December 01, 2024 11:09am clopidogrel 75 mg oral tablet (20 sources) P2Y12 Platelet Inhibitor Start: 08-11-2016 End: 02-13-2025 take 1 tablet by mouth once daily Clopidogrel 75 mg tablet Discontinued 75 mg PO DAILY 90 3 January 18, 2024 8:18am February 13, 2025 9:45am colestipol hydrochloride 1000 mg oral tablet (15 sources) Bile Acid Sequestrant Start: 08-06-2017 End: [...] PRESSURE doxycycline hyclate 100 mg oral capsule (20 sources) Tetracycline-class Drug Start: 12-18-2023 End: 10-11-2024 [...] DATE: 11/06/23 Duloxetine 60 mg capsule,delayed release(DR/EC) (11 sources) Start: 10-14-2024 End: 12-01-2024 take 2 capsules by mouth once daily Duloxetine 60 mg capsule,delayed release(DR/EC) Discontinued 120 mg PO DAILY October 14, 2024 12:00am December 01, 2024 11:10am Start: 10-14-2024 take 2 capsules by m outh once daily Duloxetine 60 mg capsule,delayed release(DR/EC) [...] mg tablet Discontinued 10 mg PO DAILY 07 05July 08, 2019 1:00am November 18, 2019 8:55am [...] 06-12-2023 take 1 tablet by jose m once daily Fenofibrate 160 mg tablet Active 160 mg PO DAILY June 12, 2023 1:00am CHOLESTEROL Start: 11-19-2021 End: 06-12-2023 take 1 tablet by mouth once daily Fenofibrate Nanocrystallized 145 mg tablet Discontinued 145 mg PO DAILY November 19, 2021 12:00am June 12, 2023 2:50pm finasteride 5 mg oral tablet (11 sources) 5-alpha Reductase Inhibitor Start: 10-11-2024 End: 02-13-2025 take 1 tablet by mouth once daily Finasteride 5 mg tablet Discontinued 5 mg PO DAILY October 11, 2024 12:00am February 13, 2025 9:19am gemfibrozil 600 mg oral tablet (20 sources) [...] mononitrate 30 mg extended release oral tablet (15 sources) Nitrate Vasodilator Start: 05-29-2017 End: 06-04-2017 take 1 tablet by mouth once daily in the morning, then take 1 tablet by mouth every twenty-four hours Isosorbide Mononitrate 30 mg tablet extended release 24 hr Discontinued 30 mg PO EVERY MORNING 30 May 29, 2017 1:00am June 04, 2017 4:01pm swallow whole with glass of water; do not crush/chew /dissolve /cut/break Magnesium (20 sources) Start: 06-12-2023 End: 10-29-2023 take 1 [...] PO DAILY June 11, 2020 1:00am mecobalamin (11 sources) Start: 10-11-2024 End: 12-01-2024 take 1 [...] 2023 5:05pm meloxicam 15 mg oral tablet (18 sources) Nonsteroidal Anti-inflammatory Drug Start: 12-01-2024 End: 02-02-2025 take 1 tablet by mouth once daily Meloxicam 15 mg tablet Discontinued 15 mg PO DAILY December 01, 2024 12:00am February 02, 2025 3:36pm Start: 10-29-2023 End: 12-18-2023 take 1 tablet by mouth once daily as needed for arthritis Meloxicam 15 mg tablet Discontinued 15 mg PO DAILY as needed for ARTHRITIS October 29, 2023 12:00am December 18, 2023 8:58am methocarbamol 500 mg oral tablet (11 sources) Muscle Relaxant Start: 10-11-2024 End: 02-02-2025 take 1 tablet by mouth three times daily as needed for pain Methocarbamol 500 mg tablet Discontinued 500 mg PO THREE TIMES A DAY as needed for back pain 10 3 0 October 11, 2024 11:18am February 02, 2025 3:36pm metoprolol tartrate 25 mg oral tablet (20 sources) beta-Adrenergic Lobo Start: 10-29-2023 End: 12-18-2023 take 1 tablet by mouth once daily Metoprolol Tartrate 25 mg tablet Discontinued 25 mg PO DAILY October 29, 2023 12:00am December 18, 2023 8:56am BLOOD PRESSURE Start: 11-04-2022 End: 06-12-2023 Metoprolol Tartrate 25 mg ta blet Discontinued 0 .ROUTE .COMPLEX 90 November 04, 2022 10:27am June 12, 2023 [...] SL NEEDED as needed for chest pain 25 January 24, 2021 11:40am October 29, 2023 5:08pm oxyCODONE hydrochloride 5 mg oral tablet (17 sources) Opioid Agonist Start: 12-13-2024 End: 02-02-2025 take 5-10 mg by mouth every four hours as needed for pain Oxycodone 5 mg Tablet Discontinued 5 - 10 mg PO EVERY 4 HOURS NEEDED as needed for Pain Score 4-10 14 5 0 [place] 8th, 2025 [place] 28th, 2025 3:36pm Umbilical hernia Umbilical hernia without obstruction or gangrene Start: 10-11-2024 End: 02-02-2025 take 1 tablet by mouth every six hours as needed for pain Oxycodone 5 mg tablet Discontinued 5 mg PO EVERY 6 HOURS as needed for pain 12 3 October 11, 2024 February 02, 2025 3:36pm Chronic back pain Dorsalgia, unspecified Other chronic pain pantoprazole 20 mg delayed release oral tablet [...] breakfast pravastatin sodium 40 mg oral tablet (15 sources) HMG-CoA Reductase Inhibitor Start: 06-04-2017 End: 07-03-2017 take 1 tablet by mouth at bedtime Pravastatin 40 mg tablet Discontinued 40 mg PO AT BEDTIME 30 June 04, 2017 1:00am July 03, 2017 5:07pm predniSONE 20 mg oral tablet (16 sources) Start: 01-19-2025 End: 02-02-2025 take 3 tablets by mouth once daily Prednisone 20 mg tablet Discontinued 60 mg PO DAILY 15 January 19, 2025 12:00am February 02, 2025 3:36pm Start: 10-11-2024 End: 10-14-2024 take 1 tablet by mouth once daily Prednisone 20 mg tablet Discontinued 20 mg PO DAILY 20 0 October 11, 2024 12:00am October 14, 2024 8:52am rosuvastatin calcium 5 mg oral tablet (11 sources) HMG-CoA Reductase Inhibitor Start: 10-31-2023 End: 11-12-2023 take 1 tablet by mouth once daily Rosuvastatin 5 mg tablet Discontinued 5 mg PO DAILY 30 0 October 31, 2023 12:00am November 12, 2023 11:29am Zinc (15 sources) Start: 06-11-2020 End: 10-29-2023 take 1 [...] Documented Da te Episodic/Chronic Acute myocardial infarction (15 sources) Myocardial infarction; Translations: [Non-ST elevation (NSTEMI) myocardial infarction] 08-22-2018 Chronic Conditions associated with dizziness or vertigo (17 sources) Dizziness; Translations: [Dizziness and giddiness] Episodic Coronary atherosclerosis and other heart disease (20 sources) Preinfarction syndrome; Translations: [Unstable angina] Onset: 10-14-2024 Chronic Comment on above: PCI-FLORY-Mid LAD [id number], MId and 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 06/25/2016 Disorders of lipid metabolism (20 sources) Hypercholesterolemia ; Translations: [Pure hypercholesterolemia , unspecified] Onset: 02-17-2025 Chronic Essential hypertension (20 sources) Essential hypertension; Translations: [Essential (primary) hypertension] Onset: 10-14-2024 Chronic Genitourinary symptoms and ill-defined conditions (11 sources) Nocturia; Translations: [Nocturia] 12-18-2023 Episodic Nonspecific chest pain (20 sources) Chest pain; Translations: [Chest pain, unspecified] 08-22-2018 Episodic Other and ill-defined heart disease (20 sources) Dissection of coronary artery; Translations: [Coronary [...] Onset: 08-20-2022 Chronic Other nervous system disorders (17 sources) Cervical myelopathy; Translations: [Disease of spinal cord, unspecified] 12-07-2024 Chronic Other nervous system disorders (1 source) Disease of spinal cord, unspecified; Translations: [Disease of spinal cord, unspecified] Onset: 04-18-2025 Chronic Other nervous system disorders (3 sources) Paresthesia of lower extremity 07-07-2022 Episodic Other non-traumatic joint disorders (3 sources) Hip pain 07-07-2022 Episodic Other non-traumatic joint disorders (1 source) Pain in right hip joint; Translations: [Pain in right hip] Onset: 08-20-2022 Episodic Other nutritional; endocrine; and metabolic disorders (8 sources) Body mass index 30+ - obesity; Translations: [Obesity, unspecified] 02-02-2025 Chronic Other nutritional; endocrine; and metabolic disorders (1 source) Obesity, unspecified; Translations: [Obesity, unspecified] Onset: 04-18-2025 Chronic Residual codes; unclassified (3 sources) Chronic pain 07-07-2022 Episodic Spondylosis; intervertebral disc disorders; other back problems (20 sources) Spondylosis without myelopathy or radiculopathy, lumbar region; Translations: [Other intervertebral disc degeneration, lumbar region] Onset: 08-13-2017 Chronic Spondylosis; intervertebral disc disorders; other back problems (20 sources) Sciatica, right side; Translations: [Lumbago with sciatica] Onset: 08-13-2017 07-07-2022 Episodic Unclassified (12 sources) M54.16 - Radiculopathy, lumbar region Unclassified [...] Date Documented Da te Episodic/Chronic Abdominal hernia (18 sources) Umbilical hernia; Translations: [Umbilical hernia without obstruction or gangrene] Onset: 12-13-2024 11-30-2024 Episodic Bacterial infection (1 source) Rheumatic fever without heart involvement; Translations: [Rheumatic fever without heart involvement] Onset: 07-10-2017 Episodic Coronary atherosclerosis and other heart disease (3 sources) Presence of coronary angioplasty implant and graft; Translations: [Percutaneous transluminal coronary angioplasty status] Onset: 11-25-2016 Episodic Other non-traumatic joint disorders (1 source) Pain in unspecified joint; Translations: [Pain in unspecified joint] Onset: 05-05-2017 Episodic Other screening for suspected conditions (not mental disorders or infectious disease) (1 source) Elevated prostate specific antigen [PSA]; Translations: [Elevated prostate specific antigen [PSA]] Onset: 07-28-2024 Episodic Unclassified (15 sources) dissection of coronary into ascending aorta Onset: 06-25-2016 05-30-2020 Results Test Name Value Interpretation Reference Range Facility Orthopedic Visit Reporton Orthopedic Visit Report [facility] [address] [place] [id number] OFFICE VISIT Date of Service: 04/18/25 MR#: [id number] Acct: [id number] Name: ARYAN ROBERTS Rep #: [id number] : 1965 Provider: Dr. Bowen Nagel MD Age/Sex: 60/M Location: [facility] Status: Signed Intake Vital Signs 02/13/25 08:58 Height 5 ft 7 in Weight: 230 lb BMI 36.0 BP 136/88 H Blood Pressure Location Lt brachial Position Sitting Respiration 16 Pulse 76 Pulse Source NIBP Intake Visit Reasons: cervical spine Chief Complaint: Cervical Spine Pre op Accompanied by: Self Is patient in pain?: Yes (lumbar ) Pain scale (1-10): 6 Allergies atorvastatin (From Lipitor) Adverse Reaction (Severe, Verified 04/18/25 09:23) mylagias evolocumab (From Repatha SureClick) Adverse Reaction (Severe, Verified 04/18/25 09:23) Blurred vision metoprolol Adverse Reaction (Severe, Verified 04/18/25 09:23) Rash hydrocodone bitartrate (From Vicodin) Adverse Reaction (Intermediate, Verified 04/18/25 09:23) Itching pravastatin Adverse Reaction (Verified 04/18/25 09:23) GI upset and sore mouth Medications ???Medication ???Instructions ???Recorded ???Confirmed ???Type fenofibrate 160 mg tablet 160 mg PO DAILY CHOLESTEROL 04/18/25 History ezetimibe 10 mg tablet 10 mg PO DAILY CHOLESTEROL #90 03/0104/18/25 Rx TABLETS artificial tears(hypromellose) 0.3 1 drp EACH EYE BID PRN dry eye(s ) 10/11/24 04/18/25 History % eye drops cholecalciferol (vitamin D3) 50 50 mcg PO QODAY SUPPLEMENT 5 04/18/25 History mcg (2,000 unit) capsule folic acid 800 mcg tablet 800 mcg PO BID SUPPLEMENT 10/11/24 04/18/25 History losartan 25 mg tablet 12.5 mg PO DAILY BP 02/13/2504/18 History omeprazole 20 mg capsule,delayed 20 mg PO QDAY GERD 02/13/25 History release baclofen 10 mg tablet 10 mg PO 4X/DAY PAIN 04/13/2504/08 History PFSH Medical History Pre-op testing Wears glasses History of steroid therapy Arthritis Kidney stones High cholesterol Gastric reflux Non-smoker Sleep apnea Shortness of breath on exertion History of pain when walking Obesity (BMI 30-39.9) Bulging of cervical intervertebral disc Back pain History of echocardiogram History of stress test Cardiology follow-up encounter Umbilical hernia Coronary artery 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) Essential hypertension Inflammatory polyarthropathy BPH (benign prostatic hyperplasia) GERD (gastroesophageal reflux disease) 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 Bowen Nagel MD 04/18/25 [id number]. Part of today???s visit was documented by Jamia Dugan RN, acting as scribe. ARYAN ROBERTS is a 60 year old M here today for preoperative visit for C3-7 ACDF, C3-7 posterior instrumented fusion scheduled on 04-27-25. The patient is a 60-year-old male presenting with concerns related to an upcoming cervical spine fusion surgery. The patient has a history of a four-corner fusion on his wrist, which initially did not heal properly, requiring bone marrow grafting from his hip, after which it healed well. He reports numbness in both arms, particularly at night, which has worsened over the past year and a half. 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 He denies having diabetes or smoking, which are positive factors for his surgical recovery. - Neurological: Reports numbness in bilateral arms, particularly at night, worsening over the past year and a half. - Cardiovascular: Denies chest pain, breathing difficulties, and has discontinued Plavix and aspirin. - End (more content not included)... Normal [facility] MRSA/SAID NASAL SCREENon MRSA+SAID SCRN Reason for Exam: Bisi minh MRSA MRSA Negative S. AUREUS S. aureus Negative Normal [facility] Comment on above: Performed By: #### B TSPAT, L501.5200, L500.2500, M100.651, L100.0100, L501.9985 ####[facility] [id number] [place], [address] Basic Metabolic Profile (BMP )on 04-13-2025 BUN/CRE 12.4 RATIO Normal 10-20 [facility] Comment on above: Performed By: #### B TSPAT, L501.5200, L500.2500, M100.651, L100.0100, L501.9985 ####[facility] [id number] [place], [address] Calcium [Mass/Vol] 9.9 mg/dL Normal 7.6-11.0 [facility] Comment on above: Performed By: #### B TSPAT, L501.5200, L500.2500, M100.651, L100.0100, L501.9985 ####[facility] [id number] [place], [address] Chloride [Moles/Vol] 109 mmol/L High 98-108 [facility] Comment on above: Performed By: #### B TSPAT, L501.5200, L500.2500, M100.651, L100.0100, L501.9985 ####[facility] [id number] [place], [address] CO2 [Moles/Vol] 25.0 mmol/L Normal 21.0-32.0 [facility] Comment on above: Performed By: #### B TSPAT, L501.5200, L500.2500, M100.651, L100.0100, L501.9985 ####[facility] [id number] [place], [address] Creatinine [Mass/Vol] 1.20 mg/dL Normal 0.70-1.20 [facility] Comment on above: Performed By: #### B TSPAT, L501.5200, L500.2500, M100.651, L100.0100, L501.9985 ####[facility] [id number] [place], [address] GAP 9 Normal 5-15 [facility] Comment on above: Performed By: #### B TSPAT, L501.5200, L500.2500, M100.651, L100.0100, L501.9985 ####[facility] [id number] [place], [address] GFR/1.73 sq M.predicted among non-blacks MDRD (S/P/Bld) [Vol rate/Area] 70 mL/min/{1.73_m2} Normal >60 [facility] Comment on above: Result Comment: mL/m in/1.73m2 CKD-EPI Creatinine Equation (2020) Performed By: #### B TSPAT, L501.5200, L500.2500, M100.651, L100.0100, L501.9985 ####[facility] [address] [place], [address] Glucose [Mass/Vol] 138 mg/dL High 70-99 [facility] Comment on above: Performed By: #### B TSPAT, L501.5200, L500.2500, M100.651, L100.0100, L501.9985 ####[facility] [address] [place], [address] Potassium [Moles/Vol] 4.2 mmol/L Normal 3.3-5.1 [facility] Comment on above: Result Comment: Hemo lysis present, Results??could be affected. ?? Performed By: #### B TSPAT, L501.5200, L500.2500, M100.651, L100.0100, L501.9985 ####[facility] [address] [place], [address] Sodium [Moles/Vol] 143 mmol/L Normal 133-145 [facility] Comment on above: Performed By: #### B TSPAT, L501.5200, L500.2500, M100.651, L100.0100, L501.9985 ####[facility] [address] [place], [address] Urea nitrogen [Mass/Vol] 15 mg/dL Normal 4-19 [facility] Comment on above: Performed By: #### B TSPAT, L501.5200, L500.2500, M100.651, L100.0100, L501.9985 ####[facility] [address] [place], [address] CBC W/Diff, Automatedon 11-0 6-2024 Absolute Lymph 1.06 X10 3/uL Normal 0.83-4.51 [facility] Comment on above: Performed By: #### B TSPAT, L501.5200, L500.2500, M100.651, L100.0100, L501.9985 ####[facility] [address] [place], [address] Absolute Neut 3.1 X10 3/uL Normal 2.0-7.7 [facility] Comment on above: Performed By: #### B TSPAT, L501.5200, L500.2500, M100.651, L100.0100, L501.9985 ####[facility] [address] [place], [address] Basophils/100 WBC (Bld) 0.8 % Normal 0-1 [facility] Comment on above: Performed By: #### B TSPAT, L501.5200, L500.2500, M100.651, L100.0100, L501.9985 ####[facility] [address] [place], [address] Eosinophils/100 WBC (Bld) 1.1 % Normal 0-5 [facility] Comment on above: Performed By: #### B TSPAT, L501.5200, L500.2500, M100.651, L100.0100, L501.9985 ####[facility] [address] [place], [address] Erythrocyte distribution width (RBC) [Ratio] 13.2 % Normal 11.6-14.6 [facility] Comment on above: Performed By: #### B TSPAT, L501.5200, L500.2500, M100.651, L100.0100, L501.9985 ####[facility] [address] [place], [address] Hematocrit (Bld) [Volume fraction] 47.9 % Normal 40-54 [facility] Comment on above: Performed By: #### B TSPAT, L501.5200, L500.2500, M100.651, L100.0100, L501.9985 ####[facility] [address] [place], [address] Hemoglobin (Bld) [Mass/Vol] 15.9 g/dL Normal 13.0-16.5 [facility] Comment on above: Performed By: #### B TSPAT, L501.5200, L500.2500, M100.651, L100.0100, L501.9985 ####[facility] [address] [place], [address] IG% 0.200 Normal 0.0-0.9 [facility] Comment on above: Result Comment: IG% - Immature Granulocytes (promyelocytes, myelocytes and metamyelocytes) > 1% indicates that a LEFT SHIFT is Present. Performed By: #### B TSPAT, L501.5200, L500.2500, M100.651, L100.0100, L501.9985 ####[facility] [address] [place], [address] Lymphocytes/100 WBC (Bld) 22.3 % Normal 19-41 [facility] Comment on above: Performed By: #### B TSPAT, L501.5200, L500.2500, M100.651, L100.0100, L501.9985 ####[facility] [address] [place], [address] MCH (RBC) [Entitic mass] 30.2 pg Normal 27.0-32.0 [facility] Comment on above: Performed By: #### B TSPAT, L501.5200, L500.2500, M100.651, L100.0100, L501.9985 ####[facility] [address] [place], [address] MCHC (RBC) [Mass/Vol] 33.2 g/dL Normal 32-36 [facility] Comment on above: Performed By: #### B TSPAT, L501.5200, L500.2500, M100.651, L100.0100, L501.9985 ####[facility] [address] [place], [address] MCV (RBC) [Entitic vol] 91.1 fL Normal 80-94 [facility] Comment on above: Performed By: #### B TSPAT, L501.5200, L500.2500, M100.651, L100.0100, L501.9985 ####[facility] [address] [place], [address] Monocytes/100 WBC (Bld) 10.3 % High 0-10 [facility] Comment on above: Performed By: #### B TSPAT, L501.5200, L500.2500, M100.651, L100.0100, L501.9985 ####[facility] [address] [place], [address] Neutrophils/100 WBC (Bld) 65.3 % Normal 47-70 [facility] Comment on above: Performed By: #### B TSPAT, L501.5200, L500.2500, M100.651, L100.0100, L501.9985 ####[facility] [address] [place], [address] Nucleated RBC (Bld) [#/Vol] 0 10*3/uL Normal 0-5 [facility] Comment on above: Performed By: #### B TSPAT, L501.5200, L500.2500, M100.651, L100.0100, L501.9985 ####[facility] [address] [place], [address] Platelet mean volume (Bld) [Entitic vol] 10.6 fL Normal 6.2-12.0 [facility] Comment on above: Performed By: #### B TSPAT, L501.5200, L500.2500, M100.651, L100.0100, L501.9985 ####[facility] [address] [place], [address] Platelets (Bld) [#/Vol] 251 10*3/uL Normal 150-450 [facility] Comment on above: Performed By: #### B TSPAT, L501.5200, L500.2500, M100.651, L100.0100, L501.9985 ####[facility] [address] [place], [address] RBC (Bld) [#/Vol] 5.26 10*6/uL Normal 4.6-6.2 [place] Comment on above: Performed By: #### B TSPAT, L501.5200, L500.2500, M100.651, L100.0100, L501.9985 ####[facility] [address] [place], [address] RDW SD 44.8 fl High 35.1-43.9 [facility] Comment on above: Performed By: #### B TSPAT, L501.5200, L500.2500, M100.651, L100.0100, L501.9985 ####[facility] [address] [place], [address] WBC (Bld) [#/Vol] 4.8 10*3/uL Normal 4.4-11.0 [facility] Comment on above: Performed By: #### B TSPAT, L501.5200, L500.2500, M100.651, L100.0100, L501.9985 ####[facility] [address] [place], [address] Hemoglobin A1con 04-13-2025 HbA1c (Bld) [Mass fraction] 6.3 % High <=5.6 [facility] Comment on above: Result Comment: Norm al < 5.7 % Prediabetic 5.7 - 6.4 % Diabetic >or= 6.5 % Please note range changes. Performed By: #### B TSPAT, L501.5200, L500.2500, M100.651, L100.0100, L501.9985 ####[facility] [address] [place], [address] MR/PATHumble 04-13-2025 MR/PAT.[facility] Medical Records Department [address] [place] [address] PAT - Anesthesia 04/13/25 1605 MR#: [id number] Acct: [id number] Name: ARYNA ROBERTS Rep #: [id number] : 1965 60 From: Navid Monteiro MD PCP: Dr. Cosme Berger MD Status:PRE IN Y Race: C Location: 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 When Was Last Pacemaker Check QUESTION #4 FULL TEXT: You/Your Family Experience fever (hyperthermia) with Anesthesia Last Oral Intake Last Oral intake: Last Oral Intake NPO since Meds taken in AM with sips of water? Meds patient instructed to take am of surgery PONV PONV - coffee brewer: PONV - coffee brewer Female No 04/13/25 09:29 HX of Motion Sickness No 04/13/25 09:29 HX of N/V After Surgery No 04/13/25 09:29 Non-Smoker Yes 04/13/25 09:29 Duration of Surgery greater Yes 04/13/25 09:29 than 60 minutes Number of Risk Factors 2 04/13/25 09:29 PONV Score Moderate Risk 04/13/25 09:29 Height Weight Height Weight: Anesthesia: Height Weight Height 5 ft 7 in 02/13/25 08:58 Respiratory Assessment Respiratory Assessment - coffee brewer: Respiratory Tract Infection Hx - coffee brewer Hx Respiratory Tract Infection No 04/13/25 09:29 STOP Sleep Apnea STOP Sleep Apnea - coffee brewer: STOP Sleep Apnea - coffee brewer Hx Hypertension Yes: CONTROLLED WITH MEDS 04/13/25 09:29 Hx Sleep Apnea Yes: NON-COMPLIANT 04/13/25 09:29 CPAP No 04/13/25 09:29 BIPAP No 04/13/25 09:29 Do you snore loudly (louder than talking or can be heard Do you often feel tired/ fatigued/ sleepy during daytime? Has anyone observed you stop breathing during sleep? STOP Results Positive 04/13/25 09:29 QUESTION #5 FULL TEXT : Do you snore loudly (louder than talking or can be heard through closed doors)? 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 Specify any problems Hx of Preganancy in last 3 N/A 04/13/25 09:29 Months Nurse Filling Out Transfusion VCHRISTIN 04/13/25 09:29 Questions: Date: 04/13/25 04/13/25 09:29 Time: 09:30 04/13/25 09:29 Patient unable to answer at this time (ie. confused, unrespo /Reproduction History /Reproductive History - coffee brewer: /Reproductive Hx- coffee brewer Hx Now No 04/13/25 09:29 Gestational Age (in weeks): EDC: Hx Hx Para Hx Section SAB No 04/13/25 09:29 Does the father of the baby or his family experience fever w Father of the baby Malignant Hypertension history comment [facility] Medical History (Updated 04/13/25 @ 09:37 by Marquita Roman) Pre-op testing Wears glasses History of steroid therapy Arthritis Kidney stones High cholesterol Gastric reflux Non-smoker Sleep apnea Shortness of breath on exertion History of pain when walking Obesity (BMI 30-39.9) Bulging of cervical intervertebral disc Back pain History of echocardiogram History of stress test Cardiology follow-up encounter Umbilical hernia Coronary artery 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) Essential hypertension Inflammatory polyarthropathy BPH (benign prostatic hyperplasia) GERD (gastroesophageal reflux disease) 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 Normal [facility] MR/PAT.[facility] Medical Records Department [address] [place] [address] PAT - Anesthesia 04/13/25 1007 MR#: [id number] Acct: [id number] Name: ARYAN ROBERTS Rep #: [id number] : 1965 60 From: Navid Monteiro MD PCP: Dr. Cosme Berger MD Status:PRE IN Y Race: C Location: 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 When Was Last Pacemaker Check QUESTION #4 FULL TEXT: You/Your Family Experience fever (hyperthermia) with Anesthesia Last Oral Intake Last Oral intake: Last Oral Intake NPO since Meds taken in AM with sips of water? Meds patient instructed to take am of surgery PONV PONV - coffee brewer: PONV - coffee brewer Female No 04/13/25 09:29 HX of Motion Sickness No 04/13/25 09:29 HX of N/V After Surgery No 04/13/25 09:29 Non-Smoker Yes 04/13/25 09:29 Duration of Surgery greater Yes 04/13/25 09:29 than 60 minutes Number of Risk Factors 2 04/13/25 09:29 PONV Score Moderate Risk 04/13/25 09:29 Height Weight Height Weight: Anesthesia: Height Weight Height 5 ft 7 in 02/13/25 08:58 Respiratory Assessment Respiratory Assessment - coffee brewer: Respiratory Tract Infection Hx - coffee brewer Hx Respiratory Tract Infection No 04/13/25 09:29 STOP Sleep Apnea STOP Sleep Apnea - coffee brewer: STOP Sleep Apnea - coffee brewer Hx Hypertension Yes: CONTROLLED WITH MEDS 04/13/25 09:29 Hx Sleep Apnea Yes: NON-COMPLIANT 04/13/25 09:29 CPAP No 04/13/25 09:29 BIPAP No 04/13/25 09:29 Do you snore loudly (louder than talking or can be heard Do you often feel tired/ fatigued/ sleepy during daytime? Has anyone observed you stop breathing during sleep? STOP Results Positive 04/13/25 09:29 QUESTION #5 FULL TEXT : Do you snore loudly (louder than talking or can be heard through closed doors)? 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 Specify any problems Hx of Preganancy in last 3 N/A 04/13/25 09:29 Months Nurse Filling Out Transfusion VCHRISTIN 04/13/25 09:29 Questions: Date: 04/13/25 04/13/25 09:29 Time: 09:30 04/13/25 09:29 Patient unable to answer at this time (ie. confused, unrespo /Reproduction History /Reproductive History - coffee brewer: /Reproductive Hx- coffee brewer Hx Now No 04/13/25 09:29 Gestational Age (in weeks): EDC: Hx Hx Para Hx Section SAB No 04/13/25 09:29 Does the father of the baby or his family experience fever w Father of the baby Malignant Hypertension history comment [facility] Medical History (Updated 04/13/25 @ 09:37 by Marquita Roman) Pre-op testing Wears glasses History of steroid therapy Arthritis Kidney stones High cholesterol Gastric reflux Non-smoker Sleep apnea Shortness of breath on exertion History of pain when walking Obesity (BMI 30-39.9) Bulging of cervical intervertebral disc Back pain History of echocardiogram History of stress test Cardiology follow-up encounter Umbilical hernia Coronary artery 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) Essential hypertension Inflammatory polyarthropathy BPH (benign prostatic hyperplasia) GERD (gastroesophageal reflux disease) 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 Normal [facility] Magnesiumon 04-13-2025 Magnesium [Mass/Vol] 2.4 mg/dL High 1.5-2.2 [facility] Comment on above: Performed By: #### B TSPAT, L501.5200, L500.2500, M100.651, L100.0100, L501.9985 ####[facility] [address] [place], [place], [id number] Type AND Screen - PAT ONLYon 04-13-2025 ABO and Rh group Nom (Bld) Blood group B Rh(D) positive Normal [facility] Comment on above: Order Comment: Surge ry Date: 04/27/25Reason for Laboratory Test [id number], Anterior Cervical Fusion C3-4, C4-5, C5-6 AND C6- Performed By: #### B TSPAT, L501.5200, L500.2500, M100.651, L100.0100, L501.9985 ####[facility] [address] [place], [place], [id number] Bilirubin directOrdered By: Angie Hall on 02-13-2025 Bilirubin.direct [Mass/Vol] 0.16 mg/dL 0.00-0.30 [facility] Bilirubin, totalOrdered By: Angie Hall on 02-13-2025 Bilirubin [Mass/Vol] 0.41 mg/dL 0.00-1.30 [facility] Calculated very low density lipoprotein (VLDL) cholesterol measurementOrdered By: Angie Hall on 02-13-2025 Calculated very low density lipoprotein (VLDL) cholesterol measurement 41 mg/dL High 5-40 [facility] Cardiology Visit Reporton Cardiology Visit Report [facility] [place] [facility] [address] [place] [address] OFFICE VISIT Date of Service: 02/13/25 MR#: [id number] Acct: [id number] Name: ARYAN ROBERTS Rep #: [id number] : 1965 Provider: ANTONIO cedillo Age/Sex: 59/M Location: [facility] Status: Signed HPI HPI History of Present [...] coronary artery stent. He was evaluated at [facility] in October 2023 for chest discomfort. [...] fraction of 65%. He denies chest, arm, or jaw discomfort. He acknowledges occasional palpitations that is noted during increased pain. He denies bilateral lower extremity edema. He denies shortness breath activity, shortness of breath at rest, orthopnea, cough, or PND. He denies lightheadedness, dizziness, near-syncope, or syncope. He denies fatigue. He acknowledges weakness that he attributes to low back related issues. 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 Is patient in pain?: No Allergies atorvastatin (From Lipitor) Adverse Reaction (Severe, Verified 02/13/25 09:02) mylagias evolocumab (From Repatha SureClick) Adverse Reaction (Severe, Verified 02/13/25 09:02) Blurred vision metoprolol Adverse Reaction (Severe, Verified 02/13/25 09:02) Rash hydrocodone bitartrate (From Vicodin) Adverse Reaction (Intermediate, Verified 02/13/25 09:02) Itching pravastatin Adverse Reaction (Verified 02/13/25 09:02) GI upset and sore mouth Medications ???Medication ???Instructions ???Recorded ???Confirmed ???Type fenofibrate 160 mg tablet 160 mg PO DAILY CHOLESTEROL 02/13/25 History aspirin 81 mg chewable tablet 81 mg PO DAILY HEART HEALTH 02/13/25 History doxazosin 4 mg tablet 4 mg PO QHS #90 TABLETS 01/18/24 0 02/13/25 Rx ezetimibe 10 mg tablet 10 mg PO DAILY #90 TABLETS 4 02/13/25 Rx artificial tears(hypromellose) 0.3 1 drp EACH EYE BID PRN dry eye(s ) 10/11/24 02/13/25 History % eye drops cholecalciferol (vitamin D3) 50 50 mcg PO QODAY 10/11/24 02/13/25 History mcg (2,000 unit) capsule folic acid 800 mcg tablet 800 mcg PO BID 10/11/24 02/13/25 H istory losartan 25 mg tablet 12.5 mg PO DAILY 02/13/25 02/13/25 History omeprazole 20 mg capsule,delayed 20 mg PO QDAY 02/13/25 02/13/25 Hi story release Ejection fraction %: 65 Have you fallen in the past year?: No PFSH Medical History Obesity (BMI 30-39.9) Bulging of cervical intervertebral disc Back pain History of echocardiogram History of stress test Cardiology follow-up encounter Umbilical hernia Coronary artery 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) Essential hypertension Inflammatory polyarthropathy BPH (benign prostatic hyperplasia) GERD (gastroesophageal reflux disease) 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 Normal [facility] LDL calc ser/plasOrdered By: Angie Hall on 02-13-2025 Cholesterol in LDL [Mass/Vol] 156 mg/dL [facility] Comment on above: Qbepjiegya=419-805 m g/dL & Higher Bjep=810 mg/dL or greaterFriedwald Equation for LDL-C Laboratory - Chemistry and C hemistry - challengeOrdered By: Angie Hall on 02-13-2025 AST [Catalytic activity/Vol] 26 U/L <38 [facility] Lipid Profileon 02-13-2025 CHOL:HDL 5.76 Normal [facility] Comment on above: Performed By: #### L 500.0040, L500.4100 ####[facility] [address] [place], [place], [id number] Cholesterol [Mass/Vol] 238 mg/dL High <=200 [facility] Comment on above: Result Comment: Chol esterol level, Desirable <200 mg/dL Borderline high cholesterol 200-239 mg/dL High cholesterol >=240 mg/dL Recommendations of the NCEP Adult Treatment Panel for the following risk-cutoff thresholds for the [place] population. Performed By: #### L 500.3400, L500.4100 ####[facility] [address] [place], [address] Cholesterol in HDL [Mass/Vol] 41 mg/dL Normal [facility] Comment on above: Result Comment: Reina onal Cholesterol Education Program (NCEP) guidelines: <40 mg/dL: Low HDL-cholesterol (major risk factor for CHD) >= 60 mg/dL: High HDL-cholesterol (negative risk factor for CHD) HDL-cholesterol is affected by a number of factors, e.g. smoking, exercise, hormones, sex and age. Performed By: #### L 500.3400, L500.4100 ####[facility] [address] [place], [address] Cholesterol in LDL [Mass/Vol] 156 mg/dL Normal [facility] Comment on above: Result Comment: Bord lixpft=183-368 mg/dL Higher Ienh=584 mg/dL or greater Friedwald Equation for LDL-C Performed By: #### L 500.3400, L500.4100 ####[facility] [address] [place], [address] Cholesterol in VLDL [Mass/Vol] 41 mg/dL High 5-40 [facility] Comment on above: Performed By: #### L 500.3400, L500.4100 ####[facility] [address] [place], [address] Triglyceride [Mass/Vol] 204 mg/dL High [facility] Comment on above: Result Comment: The drugs N-Acetylcysteine and Metamizole may falsely depress this assay. Normal range: <150 mg/dL Borderline High: 150-199 mg/dL High: 200-499 mg/dL Very High: >500 mg/dL Performed By: #### L 500.3400, L500.4100 ####[facility] [address] [place], [address] Liver Profileon 02-13-2025 Albumin [Mass/Vol] 4.5 g/dL Normal 3.5-5.0 [facility] Comment on above: Performed By: #### L 500.3400, L500.4100 ####[facility] [address] [place], [address] ALK PHOS 59 U/L Normal 40-129 [facility] Comment on above: Performed By: #### L 500.3400, L500.4100 ####[facility] [address] [place], [address] ALT [Catalytic activity/Vol] 35 U/L Normal <=46 [facility] Comment on above: Performed By: #### L 500.3400, L500.4100 ####[facility] [address] [place], [address] AST [Catalytic activity/Vol] 26 U/L Normal <=37 [facility] Comment on above: Performed By: #### L 500.3400, L500.4100 ####[facility] [address] [place], [address] Bilirubin [Mass/Vol] 0.41 mg/dL Normal 0.00-1.30 [facility] Comment on above: Performed By: #### L 500.3400, L500.4100 ####[facility] [address] [place], [address] Bilirubin.direct [Mass/Vol] 0.16 mg/dL Normal 0.00-0.30 [facility] Comment on above: Performed By: #### L 500.3400, L500.4100 ####[facility] [address] [place], [address] Globulin (S) [Mass/Vol] 3.0 g/dL Normal 2.2-4.2 [facility] Comment on above: Performed By: #### L 500.3400, L500.4100 ####[facility] [address] [place], [place], [id number] T PROT 7.5 g/dL Normal 5.9-8.4 [facility] Comment on above: Performed By: #### L 500.3400, L500.4100 ####[facility] [id number] [place], [place], [id number] Screening total cholesterol/ high density lipoprotein (HDL) cholesterol ratioOrdered By: Angie Hall on 02-13-2025 Cholesterol.total/Cho lesterol in HDL [Mass ratio] 5.76 {ratio} [facility] Serum globulin measurementOr dered By: Angie Hall on 02-13-2025 Globulin (S) [Mass/Vol] 3.0 g/dL 2.2-4.2 [facility] Serum or plasma alanine castellano otransferase (ALT) measurementOrdered By: Angie Hall on 02-13-2025 ALT [Catalytic activity/Vol] 35 U/L <47 [facility] Serum or plasma albumin brad urement (mass/volume)Ordered By: Angie Hall on 02-13-2025 Albumin [Mass/Vol] 4.5 g/dL 3.5-5.0 [facility] Serum or plasma alkaline camila sphatase measurementOrdered By: Angie Hall on 02-13-2025 ALP [Catalytic activity/Vol] 59 U/L 40-129 [facility] Serum or plasma cholesterol in HDL measurement (mass/volume)Ordered By: Angie Hall on 02-13-2025 Cholesterol in HDL [Mass/Vol] 41 mg/dL >40 [facility] Comment on above: National Cholesterol Education Program (NCEP) guidelines:<40 mg/dL: Low HDL-cholesterol (major risk factor for CHD)>= 60 mg/dL: High HDL-cholesterol (negative risk factor for CHD)HDL-cholesterol is affected by a number of factors, e.g. smoking, exercise, hormones, sex and age. Serum or plasma cholesterol measurement (mass/volume)Ordered By: Angie Hall on 02-13-2025 Cholesterol [Mass/Vol] 238 mg/dL High <201 [facility] Comment on above: Cholesterol level, D esirable <200 mg/dLBorderline high cholesterol 200-239 mg/dLHigh cholesterol >=240 mg/dLRecommendations of the NCEP Adult Treatment Panel for the following risk-cutoff thresholds for the [place] population. Total proteinOrdered By: Tim mary Isabel on 02-13-2025 Protein [Mass/Vol] 7.5 g/dL 5.9-8.4 [facility] Triglycerides measurementOrd ered By: Angie Isabel on 02-13-2025 Triglyceride [Mass/Vol] 204 mg/dL High <199 [facility] Comment on above: The drugs N-Acetylcy steine and Metamizole may falsely depress this assay. Normal range: <150 mg/dLBorderline High: 150-199 mg/dLHigh: 200-499 mg/dLVery High: >500 mg/dL Orthopedic Visit Reporton Orthopedic Visit Report [facility] [address] [place] [address] OFFICE VISIT Date of Service: 02/02/25 MR#: [id number] Acct: [id number] Name: ARYAN ROBERTS Rep #: [id number] : 1965 Provider: Dr. Bowen Nagel MD Age/Sex: 59/M [place] [facility] Status: Signed Intake Vital Signs 01/19/25 16:22 Height 5 ft 7 in Intake Visit Reasons: CERVICAL SPINE Chief Complaint: MRI Review Allergies atorvastatin (From Lipitor) Adverse Reaction (Severe, Verified 02/02/25 15:30) mylagias evolocumab (From Repatha SureClick) Adverse Reaction (Severe, Verified 02/02/25 15:30) Blurred vision metoprolol Adverse Reaction (Severe, Verified 02/02/25 15:30) Rash hydrocodone bitartrate (From Vicodin) Adverse Reaction (Intermediate, Verified 02/02/25 15:30) Itching pravastatin Adverse Reaction (Verified 02/02/25 15:30) GI upset and sore mouth Medications ???Medication ???Instructions ???Recorded ???Confirmed ???Type fenofibrate 160 mg tablet 160 mg PO DAILY CHOLESTEROL 02/02/25 History aspirin 81 mg chewable tablet 81 mg PO DAILY HEART HEALTH 02/02/25 History clopidogrel 75 mg tablet 75 mg PO DAILY #90 TABLETS 4 02/02/25 Rx doxazosin 4 mg tablet 4 mg PO QHS #90 TABLETS 01/18/24 0 02/02/25 Rx ezetimibe 10 mg tablet 10 mg PO DAILY #90 TABLETS 4 02/02/25 Rx artificial tears(hypromellose) 0.3 1 drp EACH EYE BID PRN dry eye(s ) 10/11/24 02/02/25 History % eye drops cholecalciferol (vitamin D3) 50 50 mcg PO QODAY 10/11/24 02/02/25 History mcg (2,000 unit) capsule finasteride 5 mg tablet 5 mg PO DAILY 10/11/24 02/02/25 Hi story folic acid 800 mcg tablet 800 mcg PO BID 10/11/24 02/02/25 H istory losartan 25 mg tablet 25 mg PO DAILY 10/11/24 02/02/25 H istory Held on 10/11/24. 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 Bowen Nagel MD 02/02/25 1528. Part of today???s visit was documented by Rossana HUNTER and Jamia Dugan RN, acting as scribe. ARYAN ROBERTS is a 59 year old M here today for MRI review of the cervical spine. He states that he is not any better and is still having a lot of pain in his lower back. He did have an epidural injection in his lower back last 01/26 which did not give him a lot of relief. The injection helped for 4 days. He does have pain from his T10 down. He has pain that radiates into his inner thigh on the left side. Dr. Woods did prescribe him Cyclobenzaprine but he does not feel that it is helping and has been getting a dry mouth and cramping in the posterior left thigh. He has a follow up with Dr. Woods on 02-22-25. He has been to the ED multiple times due to pain. He states that the majority of his lower back pain is on his left side. The low back pain is constant. He rates his pain 8/10. He states he cannot sleep at night due to the pain. He reports numbness into his left arm at night. He also reports dexterity issues in the hands. He does drop items such as his keys. He reports early balance deficits. He denies a history of diabetes. He reports a history of two heart attacks and takes Clopidogrel daily. He also takes Aspirin 81mg daily. He does have six stents the last of which was placed a year and a half ago. He denies a history of strokes. The patient is a 59-year-old male presenting with severe lower back pain and cervical ra (more content not included)... Normal [facility] Magnetic resonance imaging r eportOrdered By: Darell Morgan on 01-20-2025 Study report [facility] [address] [place], [place] [id number] Spine Cervical (Routine) MR#: [id number] Acct: [id number] Name: ARYAN ROBERTS Rep #: [id number] : 1965 M 59 From: Jose L Morgan MD PCP: Dr. Cosme Berger MD Status: R EG CLI Study:Spine Cervical (Routine) Date of Exam: 01/18/25 Exam# [id number] Ordering Dr: Pam Nagel MD PROCEDURE: SPINE CERVICAL (ROUTINE) 01/18/2025 REASON FOR EXAM: PAIN TECHNIQUE: SPINE CERVICAL (ROUTINE) Multiplanar and multisequence images were obtained without IV contrast administration. COMPARISON: None FINDINGS: Vertebrae: Cervical vertebral body heights are preserved. Bone marrow signal is unremarkable. Alignment: Straightening. No significant spondylolisthesis. Spinal Cord: Cervical spinal cord is of normal size and signal intensities. Structures at the foramen magnum are unremarkable. C2-3: A 4 x 2 mm synovial cyst anteromedial right facet. C3-4: Minimal loss of disc height. Diffuse disc osteophyte protrusion, iuak-iypwkxq-tmet-right uncinate spurring. Minimal facet hypertrophy. Effacement of the anterior thecal sac. CSF is seen posterior to the cord. Central stenosis to 8 mm AP. No abnormal cord signal. Bilateral exit foraminal narrowing. C4-5: Minimal loss of disc height. Diffuse disc osteophyte protrusion greatest centrally where there is effacement of the anterior thecal sac. Central stenosis to 6 mm AP. Mild deformation of the cordwithout abnormal cord signal. Uncinate spurring and minimal facet hypertrophy. Bilateral exit foraminal narrowing is mild. C5-6: Mild loss of disc height. Diffuse disc osteophyte protrusion. Minimal facet hypertrophy. Partial effacement of the anterior thecal sac but there is CSF around the cord. Central stenosis to 8.8 mm. Borderline narrowing right exit foramen. C6-7: Mild loss of disc height. Diffuse disc osteophyte protrusion is present and asymmetric towards the right sub foraminal zone. There may be uncinate spurring on the right. Mild left facet hypertrophy. Partial effacement of the anterior thecal sac greater on the right side with some deformation of the cord but no abnormal cordsignal. CSF is seen posterior to the cord. Central canal is 8.4 mm AP. No exit foraminal narrowing. C7-T1: Moderate facet hypertrophy bilaterally. No stenosis. MRI/Spine Cervical (Routine) IMPRESSION: 1. Straightening of the normal cervical lordosis. 2. Multilevel degenerative disc disease with central stenosis at C3/4, C4/5, C5/6, C6/7. No abnormal cord signal. Exit foraminal narrowing at C3/4, C4/5 and C5/6. Reading Location: [id number] CC: Dr. Bowen Nagel MD; Dr. Cosme Berger MD ~ Logistics/Shipper: Signed [facility] Emergency Department Summary on 01-19-2025 Emergency Department Summary [facility] Medical Records Department [address] [place] [address] Emergency Department Summary 01/19/25 MR#: [id number] Acct: [id number] Name: ARYAN ROBERTS Rep #: [id number] : 1965 59 From: Tru Lewis PCP: Dr. Cosme Berger MD Status:DEP ER Location: ED HPI History of Present Illness Chief Complaint: Back Informant: patient Narrative Narrative: Worsening low back pain for the past 2 weeks. Worse with prolonged sitting radiates down midline. He has had pain down both legs left greater than right. He has had symptoms for last 20 years. States years ago she has had injections through pain management at [facility] that did help. He did not like side effects of gabapentin. He has been given steroid shots by his PCP through the muscle itself briefly. He is on oxycodone however he does not like taking it. He is followed by spine Dr. Nagel, seen in the office December 07 last month. He was referred to Dr. Woods, however appointment not till February 08. He had history of coronary stents last time approximately 17 months ago on baby aspirin and Plavix. Denies any other blood thinners. He states a year ago seen in the ED requiring morphine shots to help. Tried calling his PCP also cannot get appointment till next week. No loss of bowel or bladder control. He is not a diabetic. 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 Hypercholesterolemia Non-STEMI (non-ST elevated myocardial infarction) Home Medications ???Medication ???Instructions ???Recorded ???Last Taken ???Type fenofibrate 160 mg tablet 160 mg PO DAILY CHOLESTEROL 12/13/24 History aspirin 81 mg chewable tablet 81 mg PO DAILY HEART HEALTH 12/07/24 History clopidogrel 75 mg tablet 75 mg PO DAILY #90 TABLETS 4 12/07/24 Rx doxazosin 4 mg tablet 4 mg PO QHS #90 TABLETS 01/18/24 0 10/10/24 Rx ezetimibe 10 mg tablet 10 mg PO DAILY #90 TABLETS 4 12/13/24 Rx artificial tears(hypromellose) 0.3 1 drp EACH EYE BID PRN dry eye(s ) 10/11/24 Unknown History % eye drops cholecalciferol (vitamin D3) 50 50 mcg PO QODAY 10/11/24 10/10/24 History mcg (2,000 unit) capsule finasteride 5 mg tablet 5 mg PO DAILY 10/11/24 10/11/24 Hi story folic acid 800 mcg tablet 800 mcg PO BID 10/11/24 10/11/24 H istory losartan 25 mg tablet 25 mg PO DAILY 10/11/24 11/01/24 H istory Held on 10/11/24. Instructions: PT BP HAS BEEN LOW, SO PT HASNT BEEN TAKING methocarbamol 500 mg tablet 500 mg PO TID PRN back pain 3 days 10/11/24 Unknown Rx #10 tabs oxycodone 5 mg tablet 5 mg PO Q6H PRN pain 3 days #12 Unknown Rx tabs meloxicam 15 mg tablet 15 mg PO DAILY 12/01/24 Unknown Hi story oxycodone 5 mg tablet 5 - 10 mg (1 - 2 x 5 mg) PO Q4H Unknown Rx PRN PRN Pain Score 4-10 5 days #14 tabs prednisone 20 mg tablet 60 mg (3 x 20 mg) PO DAILY #15 Unknown Rx TABLETS Allergy/AdvReac Type Severity Reaction Status Date / Time atorvastatin (From Lipitor) AdvReac Severe mylagias Verified 01/19/25 16:22 evolocumab (From Repatha AdvReac Severe Blurred Verified 01/19/25 16:22 SureClick) vision metoprolol AdvReac Severe Rash Verified 01/19/25 16:22 hydrocodone bitartrate (From AdvReac Intermediate Itching Verified 01/19/25 16:22 Vicodin) pravastatin AdvReac GI upset Verified 01/19/25 16:22 and sore mouth Family History Mother , [...] Type: coffee Number of servings: 1 ROS ROS ED Constitutional Constitutional ED: Denies fever(s) Cardiovascular Cardiovascular: Denies chest pain Respiratory/Chest Respiratory/Chest: Denies cough Gastrointestinal Gastrointestinal: Denies diarrhea or vomiting Musculoskeletal Mus (more content not included)... Normal [facility] Spine Cervical (Routine)on 0 01-18-2025 Spine Cervical (Routine) [facility] [address] [place] [address] Spine Cervical (Routine) MR#: [id number] Acct: [id number] Name: ARYAN ROBERTS Rep #: [id number] : 1965 M 59 From: Darell Morgan MD PCP: Dr. Cosme Berger MD Status: REG CLI Study: Spine Cervical (Routine) Date of Exam: Exam# [id number] Ordering Dr: Bowen Nagel MD PROCEDURE: SPINE CERVICAL (ROUTINE) 01/18/2025 REASON FOR EXAM: PAIN TECHNIQUE: SPINE CERVICAL (ROUTINE) Multiplanar and multisequence images were obtained without IV contrast administration. COMPARISON: None FINDINGS: Vertebrae: Cervical vertebral body heights are preserved. Bone marrow signal is unremarkable. Alignment: Straightening. No significant spondylolisthesis. Spinal Cord: Cervical spinal cord is of normal size and signal intensities. Structures at the foramen magnum are unremarkable. C2-3: A 4 x 2 mm synovial cyst anteromedial right facet. C3-4: Minimal loss of disc height. Diffuse disc osteophyte protrusion, auwb-kzcvcly-znsi-right uncinate spurring. Minimal facet hypertrophy. Effacement of the anterior thecal sac. CSF is seen posterior to the cord. Central stenosis to 8 mm AP. No abnormal cord signal. Bilateral exit foraminal narrowing. C4-5: Minimal loss of disc height. Diffuse disc osteophyte protrusion greatest centrally where there is effacement of the anterior thecal sac. Central stenosis to 6 mm AP. Mild deformation of the cord without abnormal cord signal. Uncinate spurring and minimal facet hypertrophy. Bilateral exit foraminal narrowing is mild. C5-6: Mild loss of disc height. Diffuse disc osteophyte protrusion. Minimal facet hypertrophy. Partial effacement of the anterior thecal sac but there is CSF around the cord. Central stenosis to 8.8 mm. Borderline narrowing right exit foramen. C6-7: Mild loss of disc height. Diffuse disc osteophyte protrusion is present and asymmetric towards the right sub foraminal zone. There may be uncinate spurring on the right. Mild left facet hypertrophy. Partial effacement of the anterior thecal sac greater on the right side with some deformation of the cord but no abnormal cord signal. CSF is seen posterior to the cord. Central canal is 8.4 mm AP. No exit foraminal narrowing. C7-T1: Moderate facet hypertrophy bilaterally. No stenosis. MRI/Spine Cervical (Routine) IMPRESSION: 1. Straightening of the normal cervical lordosis. 2. Multilevel degenerative disc disease with central stenosis at C3/4, C4/5, C5/6, C6/7. No abnormal cord signal. Exit foraminal narrowing at C3/4, C4/5 and C5/6. Reading Location: [id number] CC: Dr. Bowen Nagel MD; Dr. Cosme Berger MD Logistics/Shipper: Signed Normal [facility] MR/[id number] 12-14-2024 MR/POSTOPAN2 [facility] Medical Records Department [address] [place] [address] Anesthesia Postop Eval II 12/14/24 0026 MR#: [id number] Acct: [id number] Name: ARYAN ROBERTS Rep #: [id number] : 1965 59 From: Jacob Mckinney MD PCP: Dr. Cosme Berger MD Status:DEP [facility] Y Race: C Location: [facility] Anesthesia Postop Eval I Sum Postop Eval Completion status Anesthesia document: Postop Eval 1 completed: Yes Anesthesia Postop Eval I Summary Anesthesia Postop Eval I Summary: Anesthesia Postop Eval I: Assessment Summary Airway patent yes 12/13/24 11:39 MACHINE CLOTHING MAN.SJAN Spontaneous unlabored Yes 12/13/24 11:39 [employer]ACH[employer].SJAN respirations Mental status Awake,Calm 12/13/24 11:39 [employer].SJAN nausea No 12/13/24 11:39 [employer]ACH[employer].SJAN Vomiting No 12/13/24 11:39 [employer]ACH[employer].SJAN Anesthesia Postop Eval I: Fluid Summary Crystalloid volume administer 500 12/13/24 11:39 MACHINE [employer]OTH[employer].SJAN (ml) Colloids volume administered ( ml) Blood Product volume administered (ml) Total IV fluid infused 500 12/13/24 11:39 MACHINE [employer]OTH[employer].SJAN Anesthesia Postop Eval I: Summary Notes Anesthesia Complication No 12/13/24 11:39 MACHINE [employer]OTH[employer].SJAN Anesthesia Complication Comment: Post-operative progress note Anesthesia: Postop Eval II Evaluation Mental status: Awake and Calm Pain Level: 1 nausea: No Vomiting: No Complications Anesthesia Complication: No 12/14/24 0027 Date Jacob Mckinney MD Cosigner Signature: Date CC: Signed Normal [facility] Discharge Instructionon Discharge Instruction [facility] Medical Records Department [address] [place] [address] Instructions for Home/Discharge Instructions 12/13/24 1125 MR#: [id number] Acct: [id number] Name: ARYAN ROBERTS Rep #: [id number] : 1965 59 From: Peter Perea MD PCP: Dr. Cosme Berger MD Status:REG [facility] Discharge Instructions Procedure Hernia Diet Discharge Diet: [...] to schedule 2 week follow up appointment. [phone] Test Results: Test results from this visit will be discussed in further detail at your follow-up appointment, if applicable. Discharge Plan Admission Attending Provider: Peter Perea Primary Care Provider: Cosme Berger Instructions Print Language: Afghan Discharge Orders/Prescriptions Prescriptions: New oxycodone 5 mg [...] can be placed): Home, Self Care 12/13/24 1127 Peter Perea MD CC: Dr. Cosme Berger MD Signed [facility] MR/POSTOP.[facility] 12-13-2024 MR/POSTOP.[facility] Medical Records Department [address] [place] [address] Anesthesia Postop Eval I 12/13/24 1136 MR#: [id number] Acct: [id number] Name: ARYAN ROBERTS Rep #: [id number] : 1965 59 From: Rhiannon Mcclellan CRNA PCP: Dr. Cosme Berger MD Status:REG SDC Y Race: C Location: [place] [address] Anesthesia: Postop Eval I Current Vital Signs [...] completed: Yes 12/13/24 1139 Date Rhiannon Mcclellan MACHINE CLOTHING MAN Cosigner Signature: Date CC: Signed Normal [facility] Operative Reporton 5 Operative Report [facility] Medical Records Department [address] [place] [address] Operative Report 12/13/24 1122 MR#: [id number] Acct: [id number] Name: ARYAN ROBERTS Rep #: [id number] : 1965 59 From: Peter Perea MD PCP: Dr. Cosme Berger MD Status:[facility] Location: [place] [address] Operative Report (Standard) Operative Information Date of Procedure: 12/13/24 Pre-Operative Diagnosis: Umbilical hernia Post-Operative Diagnosis: Umbilical hernia Surgery/Procedure Performed: Umbilical hernia repair gas meter checker: No Type of Anesthesia: General/Regional RN Documented [...] MD; Dr. Cosme Berger MD Signed Normal [facility] Orthopedic Visit Reporton Orthopedic Visit Report [facility] [address] [place] [address] OFFICE VISIT Date of Service: 12/07/24 MR#: [id number] Acct: [id number] Name: ARYAN ROBERTS Rep #: [id number] : 1965 Provider: Dr. Bowen Nagel MD Age/Sex: 59/M Location[place] [facility] Status: Signed Intake Vital Signs 10/18/24 11:02 [...] into ascending aorta (06/25/16) Atherosclerotic heart disease [place]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 Hypercholesterolemia Non-STEMI (non-ST [...] by me, Dr. Bowen Nagel MD 12/07/24 7319. Part of today???s visit was documented by [...] is a 59-year-old (more content not included)... [facility] MR/PAT.Leif 12-05-2024 MR/PAT.[facility] Medical Records Department [address] [place] [address] PAT - Anesthesia 12/05/24 1904 MR#: [id number] Acct: [id number] Name: ARYAN ROBERTS Rep #: [id number] : 1965 59 From: Jacob Mckinney MD PCP: Dr. 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 - coffee brewer Hx Hospitalization Yes: 2 ST[facility], 10/202312/01/24 11:14 Any Problems With Anesthesia [...] take am of surgery PONV PONV - coffee brewer: PONV - coffee brewer Female No 12/01/24 11:14 HX of Motion [...] 11/30/24 08:22 Respiratory Assessment Respiratory Assessment - coffee brewer: Respiratory Tract Infection Hx - coffee brewer Hx Respiratory Tract Infection No 12/01/24 11:14 STOP Sleep Apnea STOP Sleep Apnea - coffee brewer: STOP Sleep Apnea - coffee brewer Hx Hypertension Yes: COTROLLED WITH MEDS 12/01/24 [...] Tobacco Use History Tobacco Use History - coffee brewer: Tobacco Use History - coffee brewer Tobacco Use Smoking Status Never smoker 12/01/24 11:14 Hx Tobacco Use No 12/01/24 11:14 Years Smoking Packs Smoked per Day Smoking Cessation Date was within the last 15 years Hx Smoking Cessation Date Hx Smoking Cessation No 12/01/24 11:14 Counseling Hematologic Medial History Hematologic Hx - coffee 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 Hx of Blood Transfusion No 12/01/24 11:14 [...] confused, unrespo /Reproduction History /Reproductive History - coffee brewer: /Reproductive Hx- coffee brewer Hx Now No 12/01/24 11:14 Gestational Age (in weeks): EDC: Hx Hx Para Hx Section SAB No 12/01/24 11:14 PFS Medical History (Updated 12/01/24 @ 11:23 by Rich Ruiz) Back pain History of echocardiogram History of stress test Cardiology follow-up encounter Umbilical hernia Coronary artery 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) Essential hypertension Inflammatory polyarthropathy BPH (benign prostatic hyperplasia) GERD (gastroesophageal reflux disease) 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 Normal [facility] Surgery Visit Reporton 11-30 Surgery Visit Report [facility] [address] [place] [address] OFFICE VISIT Date of Service: 11/30/24 MR#: [id number] Acct: [id number] Name: ARYAN ROBERTS Rep #: [id number] : 1965 Provider: Dr. Peter matthews MD Age/Sex: 59/M Location: [facility] Status: Signed Intake Vital Signs 10/18/24 11:02 [...] into ascending aorta (06/25/16) Atherosclerotic heart disease [place]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 Hypercholesterolemia Non-STEMI (non-ST [...] pressure, hea (more content not included)... Normal [facility] Magnetic resonance imaging r eportOrdered By: Reyes Khan on 11-29-2024 Study report [facility] Imaging Services [address] [place], [place] [id number] Spine Lumbar (Routine) MR#: [id number] Acct: [id number] Name: ARYAN ROBERTS Rep #: [id number] : 1965 M 59 From: Savannah Khan MD PCP: Dr. Cosme Berger MD Status: R EG CLI Study:Spine Lumbar (Routine) Date of Exam: 11/26/24 Exam# [id number] Ordering Dr: Sammy Gould PA PROCEDURE: SPINE LUMBAR (ROUTINE) 11/26/2024 REASON FOR [...] (Routine) IMPRESSION: Degenerative disc disease. Reading Location: [place] [address] CC: DAVIE Zuñiga; Dr. Cosme Berger MD ~ Logistics/Shipper: Signed [facility] Spine Lumbar (Routine)on Spine Lumbar (Routine) [facility] [address] [place] [address] Spine Lumbar (Routine) MR#: [id number] Acct: [id number] Name: ARYAN ROBERTS Rep #: [id number] : 1965 Annabelle 59 From: Reyes pérez MD PCP: Dr. Cosme Berger MD Status: REG CLI Study: Spine Lumbar (Routine) Date of Exam: 11/26/24 Exam# [id number] Ordering Dr: Paola Gould PROCEDURE: SPINE LUMBAR [...] (Routine) IMPRESSION: Degenerative disc disease. Reading Location: [place] [address] CC: DAVIE Zuñiga; Dr. Comse Berger MD Logistics/Shipper: Signed Normal [facility] L/S Spine Min 4 Viewson 10-06 L/S Spine Min 4 Views [facility] [address] [place], [place] [address] L/S Spine Min 4 Views MR#: [id number] Acct: [id number] Name: ARYAN ROBERTS Rep #: [id number] : 1965 M 59 From: Dwayne Bedolla MD PCP: Dr. Cosme Berger MD Status: DEP AMB Study: L/S Spine Min 4 Views Date of Exam: 10/18/24 Exam# [id number] Ordering Dr: Paola Gould PROCEDURE: L/S SPINE [...] Mild spondylotic changes as above. Reading Location: [id number] CC: DAVIE Zuñiga; Dr. Cosme Berger MD Logistics/Shipper: Signed Normal [facility] Orthopedic Visit Reporton Orthopedic Visit Report [facility] [address] [place] [address] OFFICE VISIT Date of Service: 10/18/24 MR#: [id number] Acct: [id number] Name: ARYAN ROBERTS Rep #: [id number] : 1965 Provider: DAVIE Zuñiga Age/Sex: 59/M Location[place] [facility] Status: Signed Intake Vital Signs 10/11/24 08:28 [...] into ascending aorta (06/25/16) Atherosclerotic heart disease [place]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 Hypercholesterolemia Non-STEMI (non-ST [...] shooting range recently and 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 Normal [facility] Cardiology Visit Reporton Cardiology Visit Report [facility] [address] [place], [place] [address] OFFICE VISIT Date of Service: 10/14/24 MR#: [id number] Acct: [id number] Name: ARYAN ROBERTS Rep #: [id number] : 1965 Provider: DAVIE Rivera Age/Sex: 59/M Location: [facility] Status: Signed HPI HPI History of [...] coronary artery stent. He was evaluated at [facility] in October 2023 for chest discomfort. [...] s/p ER but something still not right Web Engineer Required: No Is patient in pain?: No [...] Patient does not know all of medications PFSH Medical History Coronary artery dissection ( 06/08 (more content not included)... Normal [facility] 12 Lead EKGon 10-11-2024 12 Lead EKG [facility] [address] [place] [address] 12 Lead EKG 10/11/24 0906 MR#: [id number] Acct: [id number] Name: ARYAN ROBERTS Rep #: [id number] : 1965 59 From: Kal Simeon MD [...] rhythm Normal ECG Confirmed by Kal Simeon (1988), scientific publications editor MAHOGANY MONTOYA ([id number]) on 10/14/2024 12:03:21 PM Referred By: TA Confirmed By: Kal Simeon 10/14/24 1203 Date Kal Simeon MD CC: Dr. Cosme Berger MD; Dr. Flaquito Huerta DO Signed Normal [facility] Absolute lymphocyte countOrd ered By: Flaquito Huerta on 10-11-2024 Lymphocytes Auto (Unsp spec) [#/Vol] 1.22 10*3/uL 0.83-4.51 [facility] Absolute neutrophil countOrd ered By: Flaquito Huerta on 10-11-2024 Neutrophils (Bld) [#/Vol] 3.4 10*3/uL 2.0-7.7 [facility] Anion gap in Serum or Plasma Ordered By: Flaquito Huerta on 10-11-2024 Anion gap [Moles/Vol] 13 mmol/L 5-15 [facility] Automated lymphocyte count a s percentage of total leukocytesOrdered By: Flaquito Huerta on 10-11-2024 Lymphocytes/100 WBC Auto (Unsp spec) 23.4 % 19-41 [facility] BUN/creatinine ratioOrdered By: Flaquito Huerta on 10-11-2024 Urea nitrogen/Creatinine [Mass ratio] 11.1 mg/mg 10- [facility] Basic Metabolic Profile (BMP )on 10-11-2024 BUN/CRE 11.1 RATIO Normal - [facility] Comment on above: Performed By: #### L 500.2500, L100.0100, L501.4021 #### [facility] [address] [place], [address] Calcium [Mass/Vol] 10.2 mg/dL Normal 7.6-11.0 [facility] Comment on above: Performed By: #### L 500.2500, L100.0100, L501.4021 #### [facility] [address] [place], [address] Chloride [Moles/Vol] 104 mmol/L Normal 98-108 [facility] Comment on above: Performed By: #### L 500.2500, L100.0100, L501.4021 #### [facility] [address] [place], [address] CO2 [Moles/Vol] 21.8 mmol/L Normal 21.0-32.0 [facility] Comment on above: Performed By: #### L 500.2500, L100.0100, L501.4021 #### [facility] [address] [place], [address] Creatinine [Mass/Vol] 1.29 mg/dL High 0.70-1.20 [facility] Comment on above: Performed By: #### L 500.2500, L100.0100, L501.4021 #### [facility] [address] [place], [address] ECRCL 72.48 ml/min Normal 50-250 [facility] Comment on above: Performed By: #### L 500.2500, L100.0100, L501.4021 #### [facility] [address] [place], [address] GAP 13 Normal 5-15 [facility] Comment on above: Performed By: #### L 500.2500, L100.0100, L501.4021 #### [facility] [address] [place], [address] GFR/1.73 sq M.predicted among non-blacks MDRD (S/P/Bld) [Vol rate/Area] 64 mL/min/{1.73_m2} Normal >60 [facility] Comment on above: Result Comment: mL/m in/1.73m2 CKD-EPI Creatinine Equation (2020) Performed By: #### L 500.2500, L100.0100, L501.4021 #### [facility] [address] [place], [address] Glucose [Mass/Vol] 130 mg/dL High 70-99 [facility] Comment on above: Performed By: #### L 500.2500, L100.0100, L501.4021 #### [facility] [address] [place], [address] Potassium [Moles/Vol] 4.2 mmol/L Normal 3.3-5.1 [facility] Comment on above: Performed By: #### L 500.2500, L100.0100, L501.4021 #### [facility] [address] [place], [address] Sodium [Moles/Vol] 138 mmol/L Normal 133-145 [facility] Comment on above: Performed By: #### L 500.2500, L100.0100, L501.4021 #### [facility] [address] [place], [address] Urea nitrogen [Mass/Vol] 14 mg/dL Normal 4-19 [facility] Comment on above: Performed By: #### L 500.2500, L100.0100, L501.4021 #### [facility] [address] [place], [address] Basophil percentageOrdered B y: Flaquito Huerta on 10-11-2024 Basophils/100 WBC (Bld) 1.0 % 0-1 [facility] CBC W/Diff, Automatedon Absolute Lymph 1.22 X10 3/uL Normal 0.83-4.51 [facility] Comment on above: Performed By: #### L 500.2500, L100.0100, L501.4021 #### [facility] [address] [place], [address] Absolute Neut 3.4 X10 3/uL Normal 2.0-7.7 [facility] Comment on above: Performed By: #### L 500.2500, L100.0100, L501.4021 #### [facility] [address] [place], [address] Basophils/100 WBC (Bld) 1.0 % Normal 0-1 [facility] Comment on above: Performed By: #### L 500.2500, L100.0100, L501.4021 #### [facility] [address] [place], [address] Eosinophils/100 WBC (Bld) 1.7 % Normal 0-5 [facility] Comment on above: Performed By: #### L 500.2500, L100.0100, L501.4021 #### [facility] [address] [place], [address] Erythrocyte distribution width (RBC) [Ratio] 13.5 % Normal 11.6-14.6 [facility] Comment on above: Performed By: #### L 500.2500, L100.0100, L501.4021 #### [facility] [address] [place], [address] Hematocrit (Bld) [Volume fraction] 48.2 % Normal 40-54 [facility] Comment on above: Performed By: #### L 500.2500, L100.0100, L501.4021 #### [facility] [address] [place], [address] Hemoglobin (Bld) [Mass/Vol] 17.1 g/dL High 13.0-16.5 [facility] Comment on above: Performed By: #### L 500.2500, L100.0100, L501.4021 #### [facility] [address] [place], [address] IG% 0.400 Normal 0.0-0.9 [facility] Comment on above: Result Comment: IG% - Immature Granulocytes (promyelocytes, myelocytes and metamyelocytes) > 1% indicates that a LEFT SHIFT is Present. Performed By: #### L 500.2500, L100.0100, L501.4021 #### [facility] [address] [place], [address] Lymphocytes/100 WBC (Bld) 23.4 % Normal 19-41 [facility] Comment on above: Performed By: #### L 500.2500, L100.0100, L501.4021 #### [facility] [address] [place], [address] MCH (RBC) [Entitic mass] 31.4 pg Normal 27.0-32.0 [facility] Comment on above: Performed By: #### L 500.2500, L100.0100, L501.4021 #### [facility] [address] [place], [address] MCHC (RBC) [Mass/Vol] 35.5 g/dL Normal 32-36 [facility] Comment on above: Performed By: #### L 500.2500, L100.0100, L501.4021 #### [facility] [address] [place], [address] MCV (RBC) [Entitic vol] 88.6 fL Normal 80-94 [facility] Comment on above: Performed By: #### L 500.2500, L100.0100, L501.4021 #### [facility] [address] [place], [address] Monocytes/100 WBC (Bld) 8.4 % Normal 0-10 [facility] Comment on above: Performed By: #### L 500.2500, L100.0100, L501.4021 #### [facility] [address] [place], [address] Neutrophils/100 WBC (Bld) 65.1 % Normal 47-70 [facility] Comment on above: Performed By: #### L 500.2500, L100.0100, L501.4021 #### [facility] [address] [place], [address] Nucleated RBC (Bld) [#/Vol] 0 10*3/uL Normal 0-5 [facility] Comment on above: Performed By: #### L 500.2500, L100.0100, L501.4021 #### [facility] [address] [place], [address] Platelet mean volume (Bld) [Entitic vol] 9.7 fL Normal 6.2-12.0 [facility] Comment on above: Performed By: #### L 500.2500, L100.0100, L501.4021 #### [facility] [address] [place], [address] Platelets (Bld) [#/Vol] 267 10*3/uL Normal 150-450 [facility] Comment on above: Performed By: #### L 500.2500, L100.0100, L501.4021 #### [facility] [address] [place], [address] RBC (Bld) [#/Vol] 5.44 10*6/uL Normal 4.6-6.2 [place] Comment on above: Performed By: #### L 500.2500, L100.0100, L501.4021 #### [facility] [address] [place], [address] RDW SD 43.6 fl Normal 35.1-43.9 [facility] Comment on above: Performed By: #### L 500.2500, L100.0100, L501.4021 #### [facility] [address] [place], [address] WBC (Bld) [#/Vol] 5.2 10*3/uL Normal 4.4-11.0 [facility] Comment on above: Performed By: #### L 500.2500, L100.0100, L501.4021 #### [facility] [address] [place], [address] Carbon dioxide, total [Moles /volume] in Central venous bloodOrdered By: Flaquito Huerta on 10-11-2024 CO2 [Moles/Vol] 21.8 mmol/L 21.0-32.0 [facility] Chest 1 View (Portable)on Chest 1 View (Portable) [facility] [address] [place] [address] Chest 1 View (Portable) MR#: [id number] Acct: [id number] Name: ARYAN ROBERTS Rep #: [id number] : 1965 M 59 From: Colton August MD PCP: Dr. Cosme Berger MD Status: PRE ER Study: Chest 1 View (Portable) Date of Exam: 10/11/24 Exam# [id number] Ordering Dr: Flaquito Huerta DO PROCEDURE: CHEST [...] 2. Additional description as above. Reading Location: [id number] CC: Dr. Cosme Berger MD; Dr. Flaquito Huerta DO Logistics/Shipper: Signed Normal [facility] Chloride assayOrdered By: Yaquelin Huerta on 10-11-2024 Chloride [Moles/Vol] 104 mmol/L 98-108 [facility] Emergency Department Summary on 10-11-2024 Emergency Department Summary [facility] Medical Records Department [address] [place] [address] Emergency Department Summary 10/11/24 MR#: [id number] Acct: [id number] Name: ARYAN ROBERTS Rep #: [id number] : 1965 59 From: Flaquito Huerta DO PCP: Dr. 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 Normal [facility] Eosinophil percentageOrdered By: Flaquito Huerta on 10-11-2024 Eosinophils/100 WBC (Bld) 1.7 % 0-5 [facility] Erythrocyte distribution wid th ratioOrdered By: Flaquito Huerta on 10-11-2024 Erythrocyte distribution width (RBC) [Ratio] 13.5 % 11.6-14.6 [facility] Erythrocyte distribution wid th standard deviationOrdered By: Flaquito Huerta on 10-11-2024 Erythrocyte distribution width (RBC) [Ratio] 43.6 fl 35.1-43.9 [facility] Glomerular filtration rate ( GFR) estimation/1.73 sq m using serum, plasma, or whole bOrdered By: Flaquito Huerta on 10-11-2024 GFR/1.73 sq M.predicted among non-blacks MDRD (S/P/Bld) [Vol rate/Area] 64 mL/min/{1.73_m2} >60 [facility] Comment on above: mL/min/1.73m2 CKD-EP I Creatinine Equation (2020) Hematocrit Auto (Bld) [Volum e fraction]Ordered By: Flaquito Huerta on 10-11-2024 Hematocrit (Bld) [Volume fraction] 48.2 % 40-54 [facility] Hemoglobin measurementOrdere d By: Flaquito Huerta on 10-11-2024 Hemoglobin (Bld) [Mass/Vol] 17.1 g/dL High 13.0-16.5 [facility] Immature granulocytes/100 WB C Auto (Bld)Ordered By: Flaquito Huerta on 10-11-2024 Immature granulocytes/100 WBC (Bld) 0.400 % 0.0-0.9 [facility] Comment on above: IG% - Immature Granu locytes (promyelocytes, myelocytes and metamyelocytes) > 1% indicates that a LEFT SHIFT is Present. L499.0042on 10-11-2024 Trop T High Sen Normal <=22 [facility] Comment on above: Result Comment: Canc elled via OM: MD Ordered Performed By: #### L 499.0042 ####[facility] [address] [place], [address] L501.4021on 10-11-2024 Trop T High Sen 11 ng/L Normal <=22 [facility] Comment on above: Performed By: #### L 500.2500, L100.0100, L501.4021 #### [facility] [address] [place], [address] MCV (mean corpuscular volume ) determinationOrdered By: Flaquito Huerta on 10-11-2024 MCV (RBC) [Entitic vol] 88.6 fL 80-94 [facility] Mean corpuscular hemoglobin (MCH) determinationOrdered By: Flaquito Huerta on 10-11-2024 MCH (RBC) [Entitic mass] 31.4 pg 27.0-32.0 [facility] Mean corpuscular hemoglobin concentration (MCHC) determinationOrdered By: Flaquito Huerta on 10-11-2024 MCHC (RBC) [Mass/Vol] 35.5 g/dL 32-36 [facility] Mean platelet volume determi nationOrdered By: Flaquito Huerta on 10-11-2024 Platelet mean volume (Bld) [Entitic vol] 9.7 fL 6.2-12.0 [facility] Monocyte percentageOrdered B y: Flaquito Huerta on 10-11-2024 Monocytes/100 WBC (Bld) 8.4 % 0-10 [facility] Neutrophil percentageOrdered By: Flaquito Huerta on 10-11-2024 Neutrophils/100 WBC (Bld) 65.1 % 47-70 [facility] Nucleated red blood cell per centageOrdered By: Flaquito Huerta on 10-11-2024 Nucleated RBC/100 WBC (Bld) [Ratio] 0 % 0-5 [facility] Platelet countOrdered By: Yaquelin Huerta on 10-11-2024 Platelets (Bld) [#/Vol] 267 10*3/uL 150-450 [facility] Potassium measurement (mass/ volume)Ordered By: Flaquito Huerta on 10-11-2024 Potassium (Unsp spec) [Mass/Vol] 4.2 mmol/L 3.3-5.1 [facility] RBC Auto (Bld) [#/Vol]Ordere d By: Flaquito Huerta on 10-11-2024 RBC (Bld) [#/Vol] 5.44 10*6/uL 4.6-6.2 [place] Serum creatinine measurement (mass/volume)Ordered By: Flaquito Huerta on 10-11-2024 Creatinine [Mass/Vol] 1.29 mg/dL High 0.70-1.20 [facility] Serum glucose measurement (m ass/volume)Ordered By: Flaquito Huerta on 10-11-2024 Glucose [Mass/Vol] 130 mg/dL High 70-99 [facility] Serum or plasma calcium brad urement (mass/volume)Ordered By: Flaquito Huerta on 10-11-2024 Calcium [Mass/Vol] 10.2 mg/dL 7.6-11.0 [facility] Serum or plasma urea nitroge n measurement (mass/volume)Ordered By: Flaquito Huerta on 10-11-2024 Urea nitrogen [Mass/Vol] 14 mg/dL 4-19 [facility] Sodium levelOrdered By: Jazlyn Huerta on 10-11-2024 Sodium [Moles/Vol] 138 mmol/L 133-145 [facility] Troponin T.cardiac [Mass/vol ume] in Serum or Plasma by High sensitivity methodOrdered By: Flaquito Huerta on 10-11-2024 Troponin T.cardiac High sensitivity method [Mass/Vol] 11 ng/L <22 [facility] White blood cell (WBC) count Ordered By: Flaquito Huerta on 10-11-2024 WBC (Bld) [#/Vol] 5.2 10*3/uL 4.4-11.0 [facility] PSA,Total- Diagnosticon PSA, DIAGNOSTIC 3.06 ng/mL Normal 0.0-4.0 [facility] Comment on above: Result Comment: This test was performed using the TPSA assay method for the [employer] chemistry system. Values obtained with different assay methods cannot be used interchangably. When changing PSA assays in the course of monitoring a patient, additional sequential testing should be carried out to confirm baseline values. Performed By: #### L 501.9940 ####[facility] [address] [place], [place], [id number] RFon 07-10-2022 Rheumatoid Factor <6.0 Normal <=6.0 [facility] ([place]) Comment on above: Result Comment: RF I [...] tests. These results were obtained with the [employer] QUANTA Lite RF IgM KWESI. RF IgM values obtained with different manufacturers' assay methods may not be used interchangeably. The magnitude of the reported IgM levels cannot be correlated to an endpoint titer. Performed By: #### T ESTO, RF, JOSE, LIZA #### [place] [address] #### ESR, URIC, VIDH #### [place] [address] [place], [place] [address] .ANATon 07-09-2022 JOSE Pattern 1 Speckled Normal [facility] ([place]) Comment on above: Result Comment: At A ultman, an JOSE titer of less than 160 is not considered suggestive of significant rheumatoid disease. If clinical suspicion is high, suggest repeat testing in 1-2 months. Performed By: #### T ESTO, RF, JOSE, LIZA #### [place] [id number] #### ESR, URIC, VIDH #### [place] [address] [place], [place] [address] JOES Titer 1 40 Normal [facility] ([place]) Comment on above: Performed By: #### T DANIELLE NICHOLS, JOSE, LIZA #### [address] [address] #### ESR, URIC, VIDH #### [place] [address] [place], [place] [address] ANAon 07-09-2022 JOSE See Titer Normal Neg 40 Replaced by [facility]) Comment on above: Result Comment: JOSE Screen and Titer methodology is an immunofluorescent technique utilizing Hep2 Substrate. Performed By: #### T DANIELLE NICHOLS, JOSE, LIZA #### [address] [address] #### ESR, URIC, VIDH #### [address] [address] XR HIP MINIMUM 2 VIEWS RIGHT on [...] 07/09/2022 3:13:16 PM Ordering Provider: CONSTANTINO BERGMAN [facility] ([place]) XR SPINE LUMBAR AP/LAT/FLEX/ EXTon 07-09-2022 XR [...] Date: 07/09/2022 3:12:14 PM Ordering Provider: CONSTANTINO Barrios [facility] ([place]) ESRon 07-08-2022 Erythrocyte Sed Rate 4 mm/hr Normal 0-20 [facility] ([place]) Comment on above: Performed By: #### DANIELLE BETTS ANA, LIZA #### [place] [address] #### ESR, URIC, VIDH #### [address] [address] LABORATORYOrdered By: Izabela Love on 07-08-2022 ESR 15 minute reading (Bld) [Velocity] 4 mm/hr Invalid Interpretation Code 0 - 20 mm/hr AO Man Heme SS LABORATORYOrdered By: SYSTEM SYSTEM on 07-08-2022 Testosterone [Mass/Vol] 277.41 ng/dL Invalid Interpretation Code 86.98 - 780.10 ng/dL ADM SS Uric Acid Lvl 4.2 mg/dL Invalid Interpretation Code 3.5 - 7.2 mg/dL AO ADM SS Vit. D 25-Hydroxy 36.7 ng/mL Invalid Interpretation Code AO ADM SS TESTOon 07-08-2022 Testosterone Lvl 277.41 ng/dL Normal 86.98-780. 10 [facility] ([place]) Comment on above: Result Comment: Norm al Reference Ranges for Females: Female Premenopause Age 21-60 9.01-47.94 ng/dL Female Postmenopause Age 45-89 <7.00-45.62 ng/dL Performed By: #### DANIELLE BETTS JOSE, LIZA #### [place] [address] #### ESR, URIC, VIDH #### [address] [address] URICon 07-08-2022 Uric Acid Lvl 4.2 mg/dL Normal 3.5-7.2 [facility] ([place]) Comment on above: Performed By: #### DANEILLE BETTS ANA, LIZA #### [place] [address] #### ESR, URIC, VIDH #### [address] [address] VIDHon 07-08-2022 Vit. D 25-Hydroxy 36.7 ng/mL Normal [facility] ([place]) Comment on above: Result Comment: Inte rpretive Values Based on Total 25(OH) Vitamin D: Deficient <20 ng/mL Insufficient 20 - <30 ng/mL Sufficient 30-100 ng/mL Performed By: #### DANIELLE BETTS ANA, LIZA #### [place] [address] #### ESR, URIC, VIDH #### [address] [address] Absolute lymphocyte counton 11-19-2021 Lymphocytes Auto (Unsp spec) [#/Vol] 1.02 10*3/uL 0.83-4.51 [facility] Work Phone: Basophil percentageon 2021 Basophils/100 WBC (Bld) 0.9 % 0-1 [facility] Work Phone: Bilirubin [Mass/Vol] 0.30 mg/dL 0.20-1.00 [facility] Work Phone: Comment on above: For patients on eltr ombopag therapy, use of Dimension Success TBIL is not recommended. Chloride [Moles/Vol] 109 mmol/L 98-107 [facility] Work Phone: Cholesterol [Mass/Vol] 182 mg/dL <200 [facility] Work Phone: Comment on above: <200 mg/dL Desirable 200-240 mg/dL Borderline >240 mg/dL High Risk Eosinophils/100 WBC (Bld) 1.5 % 0-5 [facility] Work Phone: Glucose [Mass/Vol] 107 mg/dL 74-106 [facility] Work Phone: Comment on above: Fasting Glucose resu lt from 100 to 125 mg/dL suggests IMPAIRED HOMEOSTASIS per A.D.A. criteria. Neutrophils (Bld) [#/Vol] 3.6 10*3/uL 2.0-7.7 [facility] Work Phone: Neutrophils/100 WBC (Bld) 68.4 % 47-70 [facility] Work Phone: Potassium [Moles/Vol] 4.0 mmol/L 3.5-5.1 [facility] Work Phone: Protein [Mass/Vol] 7.5 g/dL 6.4-8.2 [facility] Work Phone: Sodium [Moles/Vol] 139 mmol/L 136-145 [facility] Work Phone: Triglyceride [Mass/Vol] 111 mg/dL <199 [facility] Work Phone: Comment on above: The drugs N-Acetylcy steine and Metamizole may falsely depress this assay.Serum Triglycerides Reference Interval Normal <150 mg/dL Borderline high 150 - 199 mg/dL High 200 - 499 mg/dL Very High > or = 500 mg/dL WBC (Bld) [#/Vol] 5.3 10*3/uL 4.4-11.0 [facility] Work Phone: Blood erythrocytes count (nu mber/volume)on 11-19-2021 RBC (Bld) [#/Vol] 4.86 10*6/uL 4.6-6.2 [facility] Work Phone: Blood hemoglobin measurement (mass/volume)on 11-19-2021 Hemoglobin (Bld) [Mass/Vol] 15.4 g/dL 13.0-16.5 [facility] Work Phone: Blood lymphocytes/100 leukoc yteson 11-19-2021 Lymphocytes/100 WBC (Bld) 19.3 % 19-41 [facility] Work Phone: Blood monocytes/100 leukocyt eson 11-19-2021 Monocytes/100 WBC (Bld) 9.5 % 0-10 [facility] Work Phone: Blood platelet mean volumeon 11-19-2021 Platelet mean volume (Bld) [Entitic vol] 9.7 fL 6.2-12.0 [facility] Work Phone: Determination of erythrocyte mean corpuscular volume (MCV)on 11-19-2021 MCV (RBC) [Entitic vol] 92.8 fL 80-94 [facility] Work Phone: [phone] Erythrocyte sedimentation ra clinton 11-19-2021 ESR (Bld) [Velocity] 22 mm/h 0-20 [facility]: Hematocrit Auto (Bld) [Volum e fraction]on 11-19-2021 Hematocrit (Bld) [Volume fraction] 45.1 % 40-54 [facility] Work Phone: Laboratory - Chemistry and C hemistry - challengeon 11-19-2021 ALP [Catalytic activity/Vol] 61 U/L 45-117 [facility] Work Phone: ALT [Catalytic activity/Vol] 27 U/L 16-61 [facility] Work Phone: CO2 [Moles/Vol] 24.0 mmol/L 21.0-32.0 [facility] Work Phone: Globulin (S) [Mass/Vol] 3.6 g/dL 2.2-4.2 [facility] Work Phone: Urea nitrogen/Creatinine [Mass ratio] 10.6 mg/mg 10-20 [facility] Work Phone: Laboratory - Hematology and Cell countson 11-19-2021 Erythrocyte distribution width (RBC) [Entitic vol] 44.2 fL 35.1-43.9 [facility] Work Phone: Erythrocyte distribution width (RBC) [Ratio] 13.0 % 11.6-14.6 [facility] Work Phone: Immature granulocytes/100 WBC (Bld) 0.400 % 0.0-0.9 [facility] Work Phone: Comment on above: IG% - Immature Granu locytes (promyelocytes, myelocytes and metamyelocytes) > 1% indicates that a LEFT SHIFT is Present. MCH (RBC) [Entitic mass] 31.7 pg 27.0-32.0 [facility] Work Phone: Nucleated RBC/100 WBC (Bld) [Ratio] 0 % 0-5 [facility] Work Phone: MCHC Auto (RBC) [Mass/Vol]on 11-19-2021 MCHC (RBC) [Mass/Vol] 34.1 g/dL 32-36 [facility] Work Phone: No Panel Informationon 11-19 Estimated GFR (MDRD) Amer 66 mL/min >60 [facility] Work Phone: Comment on above: GFR Calc Estimated GFR (MDRD) Non-Af Amer 55 mL/min >60 [facility] Work Phone: Comment on above: Non- GFR Calc Homocysteine 14.8 umol/L 3.2-10.7 [facility] Work Phone: Troponin I High Sensitivity 4 pg/mL 3.0-78.0 [facility] Work Phone: Comment on above: Please Note: New Nneka t Units and Gender Specific Reference Ranges. For more information see Policy Stat Procedure Success High Sensitivity Troponin (TNIH) and attachments. Platelets bldon 11-19-2021 Platelets (Bld) [#/Vol] 238 10*3/uL 150-450 [facility] Work Phone: Serum or plasma albumin brad urement (mass/volume)on 11-19-2021 Albumin [Mass/Vol] 3.9 g/dL 3.2-5.0 [facility] Work Phone: Serum or plasma albumin/glob ulin mass ratioon 11-19-2021 Albumin/Globulin [Mass ratio] 1.1 {ratio} 0.9-2.4 [facility] Work Phone: Serum or plasma calcium brad urement (mass/volume)on 11-19-2021 Calcium [Mass/Vol] 9.4 mg/dL 8.5-10.1 [facility] Work Phone: Serum or plasma cholesterol in HDL measurement (mass/volume)on 11-19-2021 Cholesterol in HDL [Mass/Vol] 36 mg/dL >40 [facility] Work Phone: Comment on above: The drugs N-Acetylcy steine and Metamizole may falsely depress this assay. Reference Range HDL <40 mg/dL Low HDL Cholesterol HDL >or= 60 mg/dL High HDL Cholesterol Serum or plasma cholesterol in VLDL measurement (mass/volume)on 11-19-2021 Cholesterol in VLDL [Mass/Vol] 22 mg/dL 5-40 [facility] Work Phone: Serum or plasma creatinine m easurement (mass/volume)on 11-19-2021 Creatinine [Mass/Vol] 1.42 mg/dL 0.70-1.30 [facility] Work Phone: Comment on above: The validity of the calculated GFR & GFRAA in patients over 70 years has not been determined. Clinical correlation is essential. Serum or plasma low density lipoprotein (LDL) cholesterol measurement (mass/volume)on 11-19-2021 Cholesterol in LDL [Mass/Vol] 124 mg/dL 0-130 [facility] Work Phone: Serum or plasma urea nitroge n measurement (mass/volume)on 11-19-2021 Urea nitrogen [Mass/Vol] 15 mg/dL 7-18 [facility] Work Phone: Thin prep Papanicolaou smear with manual screeningon 11-19-2021 Thin prep Papanicolaou smear with manual screening 14 U/L 15-37 [facility] Work Phone: Thin prep Papanicolaou smear with manual screening 6 5-15 [facility] Work Phone: Basophil percentageon 2021 Bilirubin [Mass/Vol] 0.30 mg/dL 0.20-1.00 [facility] Work Phone: Comment on above: For patients on eltr ombopag therapy, use of Dimension Success TBIL is not recommended. Cholesterol [Mass/Vol] 189 mg/dL <200 [facility] Work Phone: Comment on above: <200 mg/dL Desirable 200-240 mg/dL Borderline >240 mg/dL High Risk Protein [Mass/Vol] 7.4 g/dL 6.4-8.2 [facility] Work Phone: Triglyceride [Mass/Vol] 95 mg/dL <199 [facility] Work Phone: Comment on above: The drugs N-Acetylcy steine and Metamizole may falsely depress this assay.Serum Triglycerides Reference Interval Normal <150 mg/dL Borderline high 150 - 199 mg/dL High 200 - 499 mg/dL Very High > or = 500 mg/dL Direct bilirubinon 2 Bilirubin.direct [Mass/Vol] 0.12 mg/dL 0.00-0.30 [facility] Work Phone: Laboratory - Chemistry and C hemistry - challengeon 11-18-2021 ALP [Catalytic activity/Vol] 55 U/L 45-117 [facility] Work Phone: ALT [Catalytic activity/Vol] 27 U/L 16-61 [facility] Work Phone: Globulin (S) [Mass/Vol] 3.5 g/dL 2.2-4.2 [facility] Work Phone: Serum or plasma albumin brad urement (mass/volume)on 11-18-2021 Albumin [Mass/Vol] 3.9 g/dL 3.2-5.0 [facility] Work Phone: Serum or plasma cholesterol in HDL measurement (mass/volume)on 11-18-2021 Cholesterol in HDL [Mass/Vol] 38 mg/dL >40 [facility] Work Phone: Comment on above: The drugs N-Acetylcy steine and Metamizole may falsely depress this assay. Reference Range HDL <40 mg/dL Low HDL Cholesterol HDL >or= 60 mg/dL High HDL Cholesterol Serum or plasma cholesterol in VLDL measurement (mass/volume)on 11-18-2021 Cholesterol in VLDL [Mass/Vol] 19 mg/dL 5-40 [facility] Work Phone: Serum or plasma low density lipoprotein (LDL) cholesterol measurement (mass/volume)on 11-18-2021 Cholesterol in LDL [Mass/Vol] 132 mg/dL 0-130 [facility] Work Phone: Thin prep Papanicolaou smear with manual screeningon 11-18-2021 Thin prep Papanicolaou smear with manual screening 19 U/L 15-37 [facility] Work Phone: BMPon 10-28-2019 Anion gap [Moles/Vol] 7 mmol/L Normal 5-16 [facility] Comment on above: Order Comment: Campu s: M Performed By: #### L 500.56878, L500.54197 #### [facility] [address] [place] [address] Calcium [Mass/Vol] 9.1 mg/dL Normal 8.5-10.1 [facility] Comment on above: Order Comment: Campu s: M Performed By: #### L 500.87308, L500.66141 #### [facility] [place] [address] Chloride [Moles/Vol] 107 mmol/L Normal 98-107 [facility] Comment on above: Order Comment: Campu s: M Performed By: #### L 500.05216, L500.74578 #### [facility] [place] [address] CO2 [Moles/Vol] 26 mmol/L Normal 21-32 [facility] Comment on above: Order Comment: Campu s: M Performed By: #### L 500.04429, L5.72777 #### [facility] [address] [place] [address] Creatinine [Mass/Vol] 1.030 mg/dL Normal 0.670- 1.[address] [facility] Comment on above: Order Comment: Campu s: M Result Comment: Ally ents receiving either N-Acetylcysteine (NAC) or Metamizole prior to venipuncture, may have falsely depressed results. Performed By: #### L 500.29122, L5.69815 #### [facility] [address] [place] [address] Glucose [Mass/Vol] 88 mg/dL Normal 70-100 [facility] Comment on above: Order Comment: Campu s: M Result Comment: 70-1 00- Normal Fasting; 100-125 Impaired Fasting; greater than 126 on more than one result- Diabetes. ADA guidelines. Results may be falsely elevated after the administration of Sulfapyridine. Results may be falsely depressed after the administration of Sulfasalazine. Performed By: #### L 500.14965, L5.07122 #### [facility] [address] [place] [address] Potassium [Moles/Vol] 4.0 mmol/L Normal 3.5-5.1 [facility] Comment on above: Order Comment: Campu s: M Performed By: #### L 500.43712, L5.16323 #### [facility] [address] [place] [address] Sodium [Moles/Vol] 141 mmol/L Normal 136-145 [facility] Comment on above: Order Comment: Campu s: M Performed By: #### L 500.65930, L5.67787 #### [facility] [address] [place] [address] Urea nitrogen [Mass/Vol] 9 mg/dL Normal 7-26 [facility] Comment on above: Order Comment: Campu s: M Performed By: #### L 500.13689, L500.99551 #### [facility] [address] [place] [address] Urea nitrogen/Creatinine [Mass ratio] 9 mg/mg Low 15-24 [facility] Comment on above: Order Comment: Campu s: M Performed By: #### L 500.04762, L500.40859 #### [facility] [address] [place] [address] CBCon 10-28-2019 Erythrocyte distribution width (RBC) [Ratio] 13.3 % Normal 11-14.5 [facility] Comment on above: Order Comment: Campu s: M Performed By: #### L 200.93444 #### [facility] [address] [place] [address] Hematocrit (Bld) [Volume fraction] 47.2 % Normal 41.0-53.0 [facility] Comment on above: Order Comment: Campu s: M Performed By: #### L 200.46555 #### [facility] [address] [place], [place] [id number] Hemoglobin (Bld) [Mass/Vol] 16.2 g/dL Normal 13.5-17.5 [facility] Comment on above: Order Comment: Campu s: M Performed By: #### L 200.62023 #### [facility] [address] [place], [place] [address] MCHC (RBC) [Mass/Vol] 34.3 g/dL Normal 32.0-36.0 [facility] Comment on above: Order Comment: Campu s: M Performed By: #### L 200.80480 #### [facility] [address] [place] [address] MCV (RBC) [Entitic vol] 92.7 fL Normal 80.0-99.0 [facility] Comment on above: Order Comment: Campu s: M Performed By: #### L 200.23279 #### [facility] [address] [place], [place] [address] Nucleated RBC/100 WBC (Bld) [Ratio] 0.0 % Normal Less than 1 [facility] Comment on above: Order Comment: Campu s: M Performed By: #### L 200.51873 #### [facility] [address] [place] [address] Platelet mean volume (Bld) [Entitic vol] 9.6 fL Normal 9.4-12.4 [facility] Comment on above: Order Comment: Campu s: M Performed By: #### L 200.11533 #### [facility] [address] [place] [address] Platelets (Bld) [#/Vol] 199 K/CU MM Normal 150-450 [facility] Comment on above: Order Comment: Campu s: M Performed By: #### L 200.27145 #### [facility] [address] [place] [address] RBC (Bld) [#/Vol] 5.09 M/CU MM Normal 4.50-6.00 [facility] Comment on above: Order Comment: Campu s: M Performed By: #### L 200.42810 #### [facility] [address] [place] [address] WBC (Bld) [#/Vol] 5.1 K/CUMM Normal 4.5-11.0 [facility] Comment on above: Order Comment: Campu s: M Performed By: #### L 200.84601 #### [facility] [address] [place] [address] GFR ESTon 10-28-2019 IF AMER Greater than 60 Normal [facility] Comment on above: Order Comment: Campu s: M Performed By: #### L 500.52988, L500.17727 #### [facility] [address] [place] [address] IF non-AFR AMER Greater than 60 Normal [facility] Comment on above: Order Comment: Campu s: M Performed By: #### L 500.53087, L500.51030 #### [facility] [address] [place] [address] [facility]ROSE 10-28-2019 CONSULTATION-H&P Normal [facility] HP.[facility] Patient Name: ARYAN ROBERTS [address] [place] [address] Date of : [address] [place] [address] Unit Number: [id number] CONSULTATION-HandP Patient Status: REG [facility] Attending Doctor: Issa eMnard MD Service Date: 10/28/19805 See Addendum History of Present Illness Reason for Consult Epiploic appendagitis History of Present Illness Patient is a pleasant 54-year-old male who had some bright red blood per rectum last summer in [place] and had a CT scan in June [...] PER DR. CORDOBA Entered as Reported by RATIE ERICKSON on 10/24/19 1521 Last Action: Reviewed on 10/28/19 0723 by MARILYNN MONTGOMERY Clopidogrel Bisulfate* (Plavix 75MG Tab*) 75 MG TABLET 75 MG PO QDAY, Ref 0 (Reported) LAST DOSE 10/22/[address] CORDOBA Entered as Reported by ARTIE ERICKSON on 10/24/19 1522 Last Action: Reviewed on 10/28/19722 by MARILYNN MONTGOMERY Doxazosin Mesylate* (Cardura 4MG Tab*) 4 MG TABLET 4 MG PO QHS, Ref 0 (Reported) Entered as Reported by ARTIE ERICKSON on 10/24/19 1524 Last Action: Reviewed on 10/28/19722 by AMRILYNN MONTGOMERY Losartan Potassium* (Cozaar 25MG Tab*) 25 [...] Aryan Deleon MD Verified/Reviewed by 10/28/[address] [facility] [facility] OR.OPRPT [facility] Patient Name: ARYAN ROBERTS [address] Date of : [address] [place] [address] Unit Number: [id number] Operative Report Patient Status: REG [facility] Attending Doctor: Issa Menard MD Service Date: [...] to discharge home Anesthesia: [General Endo Zachariah/danika] stylist assistant: Fetty Estimated Blood Loss: [20 cc] [...] permission to talk to [significant other (Suzie [phone] whom I called at the end of [...] any significant abnormalities. Under direct vision a iozwik-an-bwiuq 0 PDS was placed in the right [...] Menard MD Verified/Reviewed by 10/28/[address] [facility] Operative Report Normal [facility] OR.OPRPT [facility] Patient Name: ARYAN ROBERTS [employer] [address] Date of : [address] [place], [place] [address] Unit Number: [id number] Operative Report Patient Status: REG [place] Attending Doctor: Issa Menard MD Service Date: 10/28/19 08 Operative Report Procedure Date: 10/28/19 Attending Physician: [...] The patient had the secured a 20 Togolese coud catheter was placed and there was [...] Aryan Deleon MD Verified/Reviewed by 10/28/19 0845 [facility] SURGon 10-27-2019 SURG -------- -------- Patient: ARYAN [...] and/or minor grammatical errors may exist. -------- [facility] NAME: ARYAN ROBERTS [facility] UNIT#: [id number] LOC: [facility] Supervisor Steno Pool: Jemma Doherty M.D. [id number] ROOM/BED: [facility] : 67 AGE/SEX: 54/M ORD.Issa Wolfe MD END OF REPORT Normal [facility] [place] CT ABD/PELV W ORALANDIV CONT [facility] 10-17-2019 CT ABD/PELV W ORALANDIV CONTRAST CT ABD/PELV W ORAL&IV CONTRAST Ordering Physician: Issa Menard MD 10/17/2019 2:[address] ABDOMEN AND PELVIS WITH CONTRAST Clinical Statement: Abdominal pain, rectal bleeding, patient indicates left lower quadrant and right flank pain Comparison: CT abdomen and pelvis June 08, 2019 from [facility] FINDINGS: Following the uneventful administration of 100 [...] RICO M.D. Signed By: CLAUDIA RICO M.D. [facility] MRI LUMBAR SPINE WO IVCONon 08-13-2017 MRI LUMBAR SPINE WO IVCON * * *Final Report* * *DATE OF EXAM: Aug 13 2017 11:27AM [facility] 0303 - MRI LUMBAR SPINE WO IVCON [...] and bilateral neural foramina.IMPRESSION: Unremarkable lumbar spine MRI.Logistics/Shipper: NIKOS Transcribe Date/Time: Aug 13 2017 11:40ADictated by : NURYS JACK MDThisera examination was interpreted and the report reviewed and electronically signed by: NURYS JACK MD on Aug 13 2017 11:42AM [id number] Normal [facility] PROGRESSon 08-13-2017 PROGRESS HNO ID: [id number] thor: Amy (Rt) Jennyfer Sandhu: (none)Author Type: TechnicianType: Progress NotesFiled: 08/13/2017 11:53 AMNote Text: Radiology Service Progress NotePATIENT NAME: Aryan PollardN: [id number] OF SERVICE: August 13, 2017TIME: 11:53 AMPATIENT IDENTITY VERIFICATION COMPLETED USING TWO (2) METHODS: Patientconfirmed name verbally and Date of .PATIENT GENDER DATA: MalePATIENT RELEVANT IMPLANT DATA REVIEWED: Not ApplicableRADIOLOGY DEPARTMENT: General X-ray: Exam(s) Completed: Spine X-Ray(s):Thoracic and Lumbar AP / LAT / L5-S1 / FLEX-EXTPERIPHERAL IV DATA: Not applicableSIGNED BY: RT [facility] 11:53 AM Normal [facility] PROGRESS HNO ID: [id number] thor: Lucy Marks RtService: (none)Author Type: (none)Type: Progress NotesFiled: 08/13/2017 11:36 AMNote Text: Radiology Service Progress NotePATIENT NAME: Aryan RobertsMRN: [id number] OF SERVICE: August 13, 2017TIME: 11:36 AMPATIENT IDENTITY VERIFICATION COMPLETED USING TWO (2) METHODS: Patientconfirmed name verbally and Date of .PATIENT GENDER DATA: MalePATIENT RELEVANT IMPLANT DATA REVIEWED: YesRADIOLOGY DEPARTMENT: MR; Exam(s) Completed: Spine: Lumbar spinePERIPHERAL IV DATA: Not applicableSIGNED BY: Lucy Selina RtMarch 2017 11:36 AM Normal [facility] XR LUMBAR 4V AP/LAT/ FLEX/EX Ton 08-13-2017 [...] SPINE. DEGENERATIVE FACET DISEASE IN THE LUMBAR SPINE.Logistics/Shipper: PSCDeonna Transcribe Date/Time: Aug 13 2017 1:18PDictated by : JEAN LEROY MDThis examination was interpreted and the report reviewed and electronically signed by: JEAN LEROY MD on Aug 13 2017 1:21PM [id number] Normal [facility] XR THORACIC 3V AP/LAT/SWIMME RSon 08-13-2017 XR [...] SPINE. DEGENERATIVE FACET DISEASE IN THE LUMBAR SPINE.Logistics/Shipper: PSCB Transcribe Date/Time: Aug 13 2017 1:18PDictated by : JEAN LEROY MDThis examination was interpreted and the report reviewed and electronically signed by: JEAN LEROY MD on Aug 13 2017 1:21PM [id number] Normal [facility] CNOVon 08-05-2017 CNOV Office Visit (SPNMMN) ----ARYAN ROBERTS ([id number]) 1965 MDate Time Provider Department08/05/17 9:00 AM MAEVE MEZA [facility] During your visit today, we recorded the following information about you: Pulse Respiration Blood pressure Weight 65/minute 18/minute 125/83 96.6 kg Height 1.702 Sridevi Sr Ma 08/05/2017 8:52 AM SignedDavicheryl Woodtristian is a 52 year old male who [...] visit? No.Frannie Meza MD 08/07/2017 10:31 AM [facility]igned[facility] SPINE CENTERDakim Roberts is a 52 year [...] s/p cardiac stent placement in 06/2016 and [address]. he is following withcardiology. 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 Obqm-ap-komx time was 40 minutes.Maeve Meza, [facility]:Aryan Nina MD[address] [place] [address]Uugam: [phone]: [phone] Provider: AIDAN EDMONDSON [[id number]]Allergies As of Date: 08/05/2017 Noted Allergy ReactionVICODIN (HYDROCODONE-ACETAMINOPHE* 9 - ItchingDate Reviewed: 08/05/2017Reviewed by: Frannie Sr Ma - Fully AssessedReason for Visit: New Patient [172]Primary Visit Diagnosis:Lumbar spondylosis [M47.816] Other Visit Diagnoses:Sciatica of right side [M54.31] DDD (degenerative disc disease), lumbar [M51.36] Arthralgia, unspecified joint [M25.50]Order(s):XR LUMBAR MOTION 4V AP/LAT/ FLEX/EXT [[id number]] Order #: [id number] FUTURE XR THORACIC GENERAL 3V AP/LAT/SWIMMERS [[id number]] Order #: [id number] FUTURE MRI LUMBAR SPINE WO IVCON [[id number]] Order #: [id number] FUTUREPrescriptions as of 08/05/2017 Sig: ADALIMUMAB 40 [...] (around 10/03/2017).Follow-up and Disposition History RecordedEncounter Number: [id number] Status:Closed by MAEVE MEZA MD on 08/07/17 Normal [facility] PROGRESSon 08-05-2017 PROGRESS HNO ID: [id number] thor: Maeve Burk: (none)Author Type: PhysicianType: Progress NotesFiled: 08/07/2017 10:31 AMNote Text:[facility] SPINE CENTERDakim Roberts is a 52 year [...] position. s/p cardiac stent placement in 06/2016 [id number]. he is following with cardiology. roberta Wolf [...] Date- CAD (coronary artery disease)- HTN (hypertension)- [place] (myocardial infarction) (HCC)The patient's surgical history was [...] spent counseling and/or coordinating carefor the patient. Byll-vc-tvhl time was 40 minutes.Maeve Meza, [facility]:Aryan Nina MD[address] [place] [place] [address]Yyffq: [phone]: [phone] Normal [facility] CNCOon 07-21-2017 CNCO Letter Kosta dee D.O.Department of Rheumatic and Immunologic Disease / [id number] [place], [place], [address]Hyefkq: [phone]: [phone]: [phone] 2017Dakim Roberts[address] [place], [place] [address]VZB: 1965MRN: [id number] Aryan:You will need to have blood work obtained 2 weeks after starting the newmedication, methotrexate. And then every month thereafter.Labs to be obtained include- complete metabolic panel (CMP)- complete blood count (CBC)- C-reactive protein (CRP)- sedimentation rate (WSR)This letter should serve as a lab order to have blood work obtained. Pleasebring this to a local laboratory and ask to have results [facility].Sincerely,Aidan Edmondson D.O.(Electronically Signed to [employer]) Normal [facility] C-Reactive Proteinon 018 C reactive protein (CRP) 0.3 mg/dL Normal <0.9 [facility] Comment on above: Performed By: #### C BCDIF, WSR, CMP, CRP ####[facility] [place], [place] [phone] CBC and Differentialon 07-10 Abs Baso 0.03 k/uL Normal <0.11 [facility] Comment on above: Performed By: #### C BCDIF, WSR, CMP, CRP ####[place] [address] [address] [place] [phone] Abs [place] 0.41 k/uL Normal <0.87 [facility] Comment on above: Performed By: #### C BCDIF, WSR, CMP, CRP ####[place] [address] [address]ClevelVictor [address] [phone] Abs Neut 3.91 k/uL Normal 1.45-7.50 [facility] Comment on above: Performed By: #### C BCDIF, WSR, CMP, CRP ####[place] [address] [address] [phone] Basophils/100 WBC Auto (Bld) 0.6 % Normal [facility] Comment on above: Performed By: #### C BCDIF, WSR, CMP, CRP ####[place] [address] [address] [place] [phone] DTYPE Auto Diff Normal [facility] Comment on above: Performed By: #### C BCDIF, WSR, CMP, CRP ####[place] [address] [address] [place] [phone] Eosinophils 0.07 10*3/uL Normal <0.46 [facility] Comment on above: Performed By: #### C BCDIF, WSR, CMP, CRP ####[place] [address] [address] [place] [phone] Eosinophils/100 leukocytes 1.3 % Normal [facility] Comment on above: Performed By: #### C BCDIF, WSR, CMP, CRP ####[place] [address] [address]ClevelVictor Ville [phone] Erythrocyte distribution width Auto Ratio (RBC) 13.0 % Normal 11.5-15.0 [facility] Comment on above: Performed By: #### C BCDIF, WSR, CMP, CRP ####[place] [address] AveClevelandGregory [place] [phone] Erythrocytes (RBC) 5.51 10*6/uL Normal 4.20-6.00 [facility] Comment on above: Performed By: #### C BCDIF, WSR, CMP, CRP ####[place] [address] [address]ClevelVictor [place]ille [phone] Erythrocytes (RBC) 0.0 /100 WBC Normal 0 [facility] Comment on above: Performed By: #### C BCDIF, WSR, CMP, CRP ####[place] [address] [address]ClevelVictor [place] [phone] Erythrocytes (RBC) 10*6/uL Normal <0.01 [facility] Comment on above: Performed By: #### C BCDIF, WSR, CMP, CRP ####[place] [address] [address]ClevelVictor [place] [phone] Hematocrit (HCT) 50.6 % Normal 39.0-51.0 [facility] Comment on above: Performed By: #### C BCDIF, WSR, CMP, CRP ####[place] [address] [address]Clevel[address] [place] [phone] Hemoglobin mass conc (Bld) 16.8 g/dL Normal 13.0-17.0 [facility] Comment on above: Performed By: #### C BCDIF, WSR, CMP, CRP ####[place] [address] AveClevelandGregory [place] [phone] Lymphocytes 0.97 10*3/uL Low 1.00-4.00 [facility] Comment on above: Performed By: #### C BCDIF, WSR, CMP, CRP ####[place] [address] [address]leveland[address] [place] [phone] Lymphocytes/100 leukocytes 18.0 % Normal [facility] Comment on above: Performed By: #### C BCDIF, WSR, CMP, CRP ####[place] [address] AveCChristian [place] [phone] MCH 30.5 pG Normal 26.0-34.0 [facility] Comment on above: Performed By: #### C BCDIF, WSR, CMP, CRP ####[place] [address] [address] [place] [phone] MCHC mass conc (RBC) 33.2 g/dL Normal 30.5-36.0 [facility] Comment on above: Performed By: #### C BCDIF, WSR, CMP, CRP ####[place] [address] [address] [place] [phone] MCV 91.8 fL Normal 80.0-100.0 [facility] Comment on above: Performed By: #### C BCDIF, WSR, CMP, CRP ####[place] [address] [address] [place] [phone] Monocytes/100 leukocytes 7.6 % Normal [facility] Comment on above: Performed By: #### C BCDIF, WSR, CMP, CRP ####[place] [address] [place] [phone] Neutrophils/100 WBC Auto (Bld) 72.5 % Normal [facility] Comment on above: Performed By: #### C BCDIF, WSR, CMP, CRP ####[place] [address] [place] [phone] Platelet mean volume (PMV) 10.0 fL Normal 9.0-12.7 [facility] Comment on above: Performed By: #### C BCDIF, WSR, CMP, CRP ####[place] [address] [address] [place] [phone] Platelets 209 10*3/uL Normal 150-400 [facility] Comment on above: Performed By: #### C BCDIF, WSR, CMP, CRP ####[place] [address] AveClevelVictor [place]ille [phone] WBC (Leukocytes) 5.40 10*3/uL Normal 3.70-11.00 [facility] Comment on above: Performed By: #### C BCDIF, WSR, CMP, CRP ####[place] [address] [place] [phone] Comp Metabolic Panelon 07-10 Alanine aminotransferase (ALT) 27 U/L Normal 10-54 [facility] Comment on above: Performed By: #### C BCDIF, WSR, CMP, CRP ####[place] [address] [place] [phone] Albumin 4.7 g/dL Normal 3.9-4.9 [facility] Comment on above: Performed By: #### C BCDIF, WSR, CMP, CRP ####[place] [address] [place] [phone] Alkaline phosphatase (ALP) 68 U/L Normal 36-108 [facility] Comment on above: Performed By: #### C BCDIF, WSR, CMP, CRP ####[place] [address] [place] [phone] Anion gap 13 mmol/L Normal 9-18 [facility] Comment on above: Performed By: #### C BCDIF, WSR, CMP, CRP ####[place] [address] [place] [phone] Aspartate aminotransferase (AST) 17 U/L Normal 14-40 [facility] Comment on above: Performed By: #### C BCDIF, WSR, CMP, CRP ####[place] [address] [place] [phone] Bilirubin (total) 0.5 mg/dL Normal 0.2-1.3 [facility] Comment on above: Performed By: #### C BCDIF, WSR, CMP, CRP ####[place] [address]CCindy [place]ille [phone] Calcium 9.8 mg/dL Normal 8.5-10.2 [facility] Comment on above: Performed By: #### C BCDIF, WSR, CMP, CRP ####[place] [address]CPaul [place] [phone] Chloride 105 mmol/L Normal 97-105 [facility] Comment on above: Performed By: #### C BCDIF, WSR, CMP, CRP ####[place] [address]CCindy [place] [phone] CO2 22 mmol/L Normal 22-30 [facility] Comment on above: Performed By: #### C BCDIF, WSR, CMP, CRP ####[place] [address]CP[address] [place] [phone] Creatinine 1.06 mg/dL Normal 0.73-1.22 [facility] Comment on above: Performed By: #### C BCDIF, WSR, CMP, CRP ####[place] [address] [place] [phone] eGFR (non-black) mL/min/{1.73_m2} Normal [facility] Comment on above: Performed By: #### C BCDIF, WSR, CMP, CRP ####[place] [address] [place] [phone] Result Comment: eGFR (Estimated GFR) Units of [...] Glucose mass conc 95 mg/dL Normal 74-99 [facility] Comment on above: Result Comment: The [place] [employer] (ADA) provides guidance for cutoff [...] Standards of Medical Care in Diabetes 2016, [place] [employer]. Diabetes Care. 2016.39(Suppl 1). Performed By: #### C BCDIF, WSR, CMP, CRP ####[place] [phone] Potassium molar conc 4.3 mmol/L Normal 3.7-5.1 [facility] Comment on above: Performed By: #### C BCDIF, WSR, CMP, CRP ####[place] [phone] Protein 8.0 g/dL Normal 6.3-8.0 [facility] Comment on above: Performed By: #### C BCDIF, WSR, CMP, CRP ####[place] [phone] [place] [phone] Sodium 140 mmol/L Normal 136-144 [facility] Comment on above: Performed By: #### C BCDIF, WSR, CMP, CRP ####[place] [phone] Urea nitrogen 12 mg/dL Normal 9-24 [facility] Comment on above: Performed By: #### C BCDIF, WSR, CMP, CRP ####[address]eCparma community general hospitaland, [place] [phone] PROGRESSon 07-10-2017 PROGRESS HNO ID: [id number] thor: Lisa Schroeder (Man) Vanessa Devlin: (none)Author [...] by pt, observed.Electronically Signed By: MAN Landers [facility] PROGRESS HNO ID: [id number] thor: Aidan Barr: (none)Author Type: PhysicianType: Progress NotesFiled: 07/10/2017 1:22 PMNote Text:?[facility] AND RHEUMATOLOGIC INSTITUTEDEPARTMENT OF RHEUMATIC AND [...] Date- CAD (coronary artery disease)- HTN (hypertension)- IL (myocardial infarction)PSHx:PAST SURGICAL HISTORYProcedure Laterality Date- ARTHROSCOPY [...] kg (215 lb 3.2 oz) BMI 33.88 kg/r2Rwdcmup: Looks well, NAD, A AND Ox3.HEENT: PERRLA [...] squeeze.Able to make full fist bilaterally, although 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 Knees: No effusion, no tenderness, [...] outlined in orders.Aidan Edmondson D.O.Rheumatology Staff Normal [facility] Sed Rate Westergrenon 2017 Sed Rate Westergren 5 mm/hr Normal 0-15 [facility] Comment on above: Performed By: #### C BCDIF, WSR, CMP, CRP ####[facility] [address] [place], [place] [phone] C-Reactive Proteinon 017 C reactive protein (CRP) 0.4 mg/dL Normal <0.9 [facility] Comment on above: Performed By: #### C BCDIF, WSR, CRP, RF, URIC, CMP, HREMOP, INFTBG, CCP ####[facility] [address] [place], [place] [phone] CBC and Differentialon 05-05 Abs Baso 0.04 k/uL Normal <0.11 [facility] Comment on above: Performed By: #### C BCDIF, WSR, CRP, RF, URIC, CMP, HREMOP, INFTBG, CCP ####[place] [address] [address] [place] [phone] Abs [place] 0.54 k/uL Normal <0.87 [facility] Comment on above: Performed By: #### C BCDIF, WSR, CRP, RF, URIC, CMP, HREMOP, INFTBG, CCP ####[phone] Abs Neut 4.24 k/uL Normal 1.45-7.50 [facility] Comment on above: Performed By: #### C BCDIF, WSR, CRP, RF, URIC, CMP, HREMOP, INFTBG, CCP ####[place] [phone] Basophils/100 WBC Auto (Bld) 0.7 % Normal [facility] Comment on above: Performed By: #### C BCDIF, WSR, CRP, RF, URIC, CMP, HREMOP, INFTBG, CCP ####[place] [phone] DTYPE Auto Diff Normal [facility] Comment on above: Performed By: #### C BCDIF, WSR, CRP, RF, URIC, CMP, HREMOP, INFTBG, CCP ####[place] [phone] Eosinophils 0.10 10*3/uL Normal <0.46 [facility] Comment on above: Performed By: #### C BCDIF, WSR, CRP, RF, URIC, CMP, HREMOP, INFTBG, CCP ####[place] [address] [place] [phone] Eosinophils/100 leukocytes 1.7 % Normal [facility] Comment on above: Performed By: #### C BCDIF, WSR, CRP, RF, URIC, CMP, HREMOP, INFTBG, CCP ####[place] [address] [place] [phone] Erythrocyte distribution width Auto Ratio (RBC) 13.3 % Normal 11.5-15.0 [facility] Comment on above: Performed By: #### C BCDIF, WSR, CRP, RF, URIC, CMP, HREMOP, INFTBG, CCP ####[place] [address] [place] [phone] Erythrocytes (RBC) 10*6/uL Normal <0.01 [facility] Comment on above: Performed By: #### C BCDIF, WSR, CRP, RF, URIC, CMP, HREMOP, INFTBG, CCP ####[place] [address] [place] [phone] Erythrocytes (RBC) 0.0 /100 WBC Normal 0 [facility] Comment on above: Performed By: #### C BCDIF, WSR, CRP, RF, URIC, CMP, HREMOP, INFTBG, CCP ####[place] [address] [place] [phone] Erythrocytes (RBC) 5.19 10*6/uL Normal 4.20-6.00 [facility] Comment on above: Performed By: #### C BCDIF, WSR, CRP, RF, URIC, CMP, HREMOP, INFTBG, CCP ####[place] [address] [place] [phone] Hematocrit (HCT) 48.7 % Normal 39.0-51.0 [facility] Comment on above: Performed By: #### C BCDIF, WSR, CRP, RF, URIC, CMP, HREMOP, INFTBG, CCP ####[place] [address] AveCInman, [place] [phone] Hemoglobin mass conc (Bld) 16.5 g/dL Normal 13.0-17.0 [facility] Comment on above: Performed By: #### C BCDIF, WSR, CRP, RF, URIC, CMP, HREMOP, INFTBG, CCP ####[place] [phone] Lymphocytes 1.00 10*3/uL Normal 1.00-4.00 [facility] Comment on above: Performed By: #### C BCDIF, WSR, CRP, RF, URIC, CMP, HREMOP, INFTBG, CCP ####[place] [phone] Lymphocytes/100 leukocytes 16.9 % Normal [facility] Comment on above: Performed By: #### C BCDIF, WSR, CRP, RF, URIC, CMP, HREMOP, INFTBG, CCP ####[place] [phone] MCH 31.8 pG Normal 26.0-34.0 [facility] Comment on above: Performed By: #### C BCDIF, WSR, CRP, RF, URIC, CMP, HREMOP, INFTBG, CCP ####[address] [phone] MCHC mass conc (RBC) 33.9 g/dL Normal 30.5-36.0 [facility] Comment on above: Performed By: #### C BCDIF, WSR, CRP, RF, URIC, CMP, HREMOP, INFTBG, CCP ####[address] [phone] MCV 93.8 fL Normal 80.0-100.0 [facility] Comment on above: Performed By: #### C BCDIF, WSR, CRP, RF, URIC, CMP, HREMOP, INFTBG, CCP ####[place] [phone] Monocytes/100 leukocytes 9.1 % Normal [facility] Comment on above: Performed By: #### C BCDIF, WSR, CRP, RF, URIC, CMP, HREMOP, INFTBG, CCP ####[place] [address] AveCInman, [place] [phone] Neutrophils/100 WBC Auto (Bld) 71.6 % Normal [facility] Comment on above: Performed By: #### C BCDIF, WSR, CRP, RF, URIC, CMP, HREMOP, INFTBG, CCP ####[place] [address] AveCInman, [place] [phone] Platelet mean volume (PMV) 10.2 fL Normal 9.0-12.7 [facility] Comment on above: Performed By: #### C BCDIF, WSR, CRP, RF, URIC, CMP, HREMOP, INFTBG, CCP ####[address]CInman, [place] [phone] Platelets 209 10*3/uL Normal 150-400 [facility] Comment on above: Performed By: #### C BCDIF, WSR, CRP, RF, URIC, CMP, HREMOP, INFTBG, CCP ####[place] [address], [place] [phone] WBC (Leukocytes) 5.93 10*3/uL Normal 3.70-11.00 [facility] Comment on above: Performed By: #### C BCDIF, WSR, CRP, RF, URIC, CMP, HREMOP, INFTBG, CCP ####[place] [address] AveCIn[place], [place] [phone] CCP Antibody, IgGon 05-05- 17 CCP Antibody, IgG <15 Normal <20 [facility] Comment on above: Result Comment: < 20 units: Kavauyjm17-33 units: Weak Uxjlyjwf85-37 units: Moderate Positive> 60 units: Strong Positive Performed By: #### C BCDIF, WSR, CRP, RF, URIC, CMP, HREMOP, INFTBG, CCP ####[facility] [address] [place], [place] [phone] CNOVon 05-05-2017 CNOV Office Visit (RHEUMN) ----ARYAN ROBERTS ([id number]) 1965 MDate Time Provider Snbydxvorw81/28/17 12:40 PM AIDAN EDMONDSON RHEUMDiana During your visit today, we recorded the following information about you: Temperature Pulse Blood pressure Weight 98.2 degrees 80/minute 141/85 98.2 kg Height 1.698 Alicai Edmondson DO 05/07/2017 2:12 PM Signed?[facility] ANDamp; RHEUMATOLOGIC INSTITUTEDEPARTMENT OF RHEUMATIC AND [...] rotator cuff.In Jun 2016 he sustained an IL and underwent PCI. He was stented again in November2016.He was evaluated by Rheumatology at [facility] and was diagnosed withseronegative RA. He has [...] Date- CAD (coronary artery disease)- HTN (hypertension)- IL (myocardial infarction)PSHx:PAST SURGICAL HISTORYProcedure Laterality Date- ARTHROSCOPY [...] kg (216 lb 6.4 oz) BMI 34.06 kg/n7Cnkkaen: Looks well, NAD, A ANDamp; Ox3.HEENT: EOMs [...] 1.00 - 4.00 k/uL 1.00Mono% % 9.1Abs [place] ANDlt;0.87 k/uL 0.54Eosin% % 1.7Abs Eosin ANDlt;0.46 [...] [M54.41, G89.29]Order(s):URIC ACID BLOOD [SQURIC] Order #: [id number] FUTURE CBC + DIFF [SQCBCDIF] Order #: [id number] FUTURE COMP METABOLIC PANEL [SQCMP] Order #: [id number] FUTURE RHEUMATOID FACTOR BL [SQRF] Order #: [id number] FUTURE CCP ANTIBODY IGG [SQCCP] Order #: [id number] FUTURE XR HAND GENERAL 3V PA/LAT/OBL LT [8044197] Order #: [id number] FUTURE XR HAND GENERAL 3V PA/LAT/OBL RT [8067331] Order #: [id number] FUTURE CONSULT TO SPINE CENTER [19990907] Order #: [id number]: 1 C-REACTIVE PROTEIN (CRP) [SQCRP] Order #: [id number] FUTURE SED RATE WESTERGREN [SQWSR] Order #: [id number] FUTURE HEP REMOTE PANEL BL [SQHREMOP] Order #: [id number] FUTURE BLOOD TB SCREEN [SQINFTBG] Order #: [id number] FUTURE diclofenac sodium (VOLTAREN) 1 % topical [...] Pharmacy LEFLUNOMIDE 10 MG TABLET >> Johny Reaves MA 05/05/2017 1:32 PM >> JOHNY REAVES MA May 05, 2017 1:32 PM Received from: External Pharmacy LEUCOVORIN CALCIUM 25 MG TABLET >> Johny Reaves MA 05/05/2017 1:32 PM >> CARYL RUELJOHNYrohan May 05, 2017 1:32 PM Received from: [...] Status:Closed by AIDAN EDMONDSON on 05/07/17 Normal [facility] Comp Metabolic Panelon 05-05 Alanine aminotransferase (ALT) 35 U/L Normal 10-54 [facility] Comment on above: Performed By: #### C BCDIF, WSR, CRP, RF, URIC, CMP, HREMOP, INFTBG, CCP ####[address] [phone] Albumin 4.5 g/dL Normal 3.9-4.9 [facility] Comment on above: Performed By: #### C BCDIF, WSR, CRP, RF, URIC, CMP, HREMOP, INFTBG, CCP ####[facility] [address] [place], [place] [phone] Alkaline phosphatase (ALP) 68 U/L Normal 36-108 [facility] Comment on above: Performed By: #### C BCDIF, WSR, CRP, RF, URIC, CMP, HREMOP, INFTBG, CCP ####[facility] [place], [place] [phone] Anion gap 14 mmol/L Normal 9-18 [facility] Comment on above: Performed By: #### C BCDIF, WSR, CRP, RF, URIC, CMP, HREMOP, INFTBG, CCP ####[place] [address] [address] AveCPaul [place] [phone] Aspartate aminotransferase (AST) 23 U/L Normal 14-40 [facility] Comment on above: Performed By: #### C BCDIF, WSR, CRP, RF, URIC, CMP, HREMOP, INFTBG, CCP ####[place] [address] AveCP[address] [place] [phone] Bilirubin (total) 0.2 mg/dL Normal 0.2-1.3 [facility] Comment on above: Performed By: #### C BCDIF, WSR, CRP, RF, URIC, CMP, HREMOP, INFTBG, CCP ####[address] [place] [phone] Calcium 9.6 mg/dL Normal 8.5-10.2 [facility] Comment on above: Performed By: #### C BCDIF, WSR, CRP, RF, URIC, CMP, HREMOP, INFTBG, CCP ####[place] [address]CP[address] [place] [phone] Chloride 101 mmol/L Normal 97-105 [facility] Comment on above: Performed By: #### C BCDIF, WSR, CRP, RF, URIC, CMP, HREMOP, INFTBG, CCP ####[place] [address]CP[address] [place] [phone] CO2 25 mmol/L Normal 22-30 [facility] Comment on above: Performed By: #### C BCDIF, WSR, CRP, RF, URIC, CMP, HREMOP, INFTBG, CCP ####[place] [address] AveCChristian [place] [phone] Creatinine 1.27 mg/dL High 0.73-1.22 [facility] Comment on above: Performed By: #### C BCDIF, WSR, CRP, RF, URIC, CMP, HREMOP, INFTBG, CCP ####[facility] [place] [place] [address] [phone] eGFR (non-black) mL/min/{1.73_m2} Normal [facility] Comment on above: Performed By: #### C BCDIF, WSR, CRP, RF, URIC, CMP, HREMOP, INFTBG, CCP ####[facility] [place] [place] [address] [phone] eGFR (non-black) 60 . Normal [facility] Comment on above: Result Comment: eGFR [...] CRP, RF, URIC, CMP, HREMOP, INFTBG, CCP ####[place] [address] [place], [place] [phone] Glucose mass conc 112 mg/dL High 74-99 [facility] Comment on above: Result Comment: The [place] [employer] (ADA) provides guidance for cutoff [...] Standards of Medical Care in Diabetes 2016, [place] [employer]. Diabetes Care. 2016.39(Suppl 1). Performed By: #### C BCDIF, WSR, CRP, RF, URIC, CMP, HREMOP, INFTBG, CCP ####[address] [phone] Potassium molar conc 4.2 mmol/L Normal 3.7-5.1 [facility] Comment on above: Performed By: #### C BCDIF, WSR, CRP, RF, URIC, CMP, HREMOP, INFTBG, CCP ####[address] [phone] Protein 7.4 g/dL Normal 6.3-8.0 [facility] Comment on above: Performed By: #### C BCDIF, WSR, CRP, RF, URIC, CMP, HREMOP, INFTBG, CCP ####[place] [phone] Sodium 140 mmol/L Normal 136-144 [facility] Comment on above: Performed By: #### C BCDIF, WSR, CRP, RF, URIC, CMP, HREMOP, INFTBG, CCP ####[place] [address], [place] [phone] Urea nitrogen 16 mg/dL Normal 9-24 [facility] Comment on above: Performed By: #### C BCDIF, WSR, CRP, RF, URIC, CMP, HREMOP, INFTBG, CCP ####[address] [phone] Hepatitis Remote Panelon BSA (Body Surface Area) Negative Normal Negative [facility] Comment on above: Performed By: #### C BCDIF, WSR, CRP, RF, URIC, CMP, HREMOP, INFTBG, CCP ####[address] [place], [place] [phone] Hep B Core Ab,Total Negative Normal Negative [facility] Comment on above: Performed By: #### C BCDIF, WSR, CRP, RF, URIC, CMP, HREMOP, INFTBG, CCP ####[facility] [address] [place], [place] [phone] Hepatitis C Ab IA Negative Normal Negative [facility] Comment on above: Performed By: #### C BCDIF, WSR, CRP, RF, URIC, CMP, HREMOP, INFTBG, CCP ####[facility] [address], [place] [phone] HepB Surface Ab,Qual Negative Normal Negative [facility] Comment on above: Result Comment: NEGA TIVE Performed By: #### C BCDIF, WSR, CRP, RF, URIC, CMP, HREMOP, INFTBG, CCP ####[facility] [place] [place], [place] [phone] PROGRESSon 05-05-2017 PROGRESS HNO ID: [id number] thor: Jennyfer Bailey (Rt): RadiologyAuthor Type: TechnicianType: Progress NotesFiled: 05/05/2017 1:56 PMNote Text: Radiology Service Progress NotePATIENT NAME: Aryan RobertsMRN: [id number] OF SERVICE: May 05, 2017TIME: 1:56 PMPATIENT IDENTITY VERIFICATION COMPLETED USING TWO (2) METHODS: Patientconfirmed name verbally and Date of .PATIENT GENDER DATA: MalePATIENT RELEVANT IMPLANT DATA REVIEWED: YesRADIOLOGY DEPARTMENT: General X-ray: Exam(s) Completed: Upper ExtremityX-Ray(s): Hand, Bilateral :PERIPHERAL IV DATA: Not applicableSIGNED BY: RT LynnNovember 2016 1:56 PM Normal [facility] PROGRESS HNO ID: [id number] thor: Aidan Barr: (none)Author Type: PhysicianType: Progress NotesFiled: 05/07/2017 2:12 PMNote Text:?[facility]TH[facility] AND RHEUMATOLOGIC INSTITUTEDEPARTMENT OF RHEUMATIC AND [...] rotator cuff.In Jun 2016 he sustained an IL and underwent PCI. He was stented again inJ2016.He was evaluated by Rheumatology at [facility] and was diagnosed withseronegative RA. He has [...] Date- CAD (coronary artery disease)- HTN (hypertension)- IL (myocardial infarction)PSHx:PAST SURGICAL HISTORYProcedure Laterality Date- ARTHROSCOPY [...] kg (216 lb 6.4 oz) BMI 34.06 kg/e5Awouhpt: Looks well, NAD, A AND Ox3.HEENT: EOMs [...] evidence of synovitis, there is pain on piunoujoi6bu MTP palpation.Investigations:Lab s:Component Latest Ref Rng AND [...] 1.00 - 4.00 k/uL 1.00Mono% % 9.1Abs [place] <0.87 k/uL 0.54Eosin% % 1.7Abs Eosin <0.46 [...] and Radiology: As outlined in orders.Aidan Edmondson, DO Normal [facility] Rheumatoid Factoron 05-05-20 17 Rheumatoid Factor <10 Normal <16 [facility] Comment on above: Performed By: #### C BCDIF, WSR, CRP, RF, URIC, CMP, HREMOP, INFTBG, CCP ####[facility] [address] [place], [place] [id number] Sed Rate Westergrenon 2016 Sed Rate Westergren 5 mm/hr Normal 0-15 [facility] Comment on above: Performed By: #### C BCDIF, WSR, CRP, RF, URIC, CMP, HREMOP, INFTBG, CCP ####[place] [address] [place] [phone] TB by QuantiFERONon 05-05-20 17 Interpretation No evidence of curre nt or previous infection with Mycobacterium tuberculosis. Normal [facility] Comment on above: Performed By: #### C BCDIF, WSR, CRP, RF, URIC, CMP, HREMOP, INFTBG, CCP ####[place] [address] Mitogen Response 7.88 IU/mL Normal >0.49 [facility] Comment on above: Performed By: #### C BCDIF, WSR, CRP, RF, URIC, CMP, HREMOP, INFTBG, CCP ####[place] [address] [place] [phone] TB Antigen Response 0.05 IU/mL Normal <0.35 [facility] Comment on above: Performed By: #### C BCDIF, WSR, CRP, RF, URIC, CMP, HREMOP, INFTBG, CCP ####[place] [address] [place] [address] TB Result Negative Normal Negative [facility] Comment on above: Performed By: #### C BCDIF, WSR, CRP, RF, URIC, CMP, HREMOP, INFTBG, CCP ####[place] [address] [place] [address] Uric Acidon 05-05-2017 Urate 7.6 mg/dL Normal 4.0-8.1 [facility] Comment on above: Performed By: #### C BCDIF, WSR, CRP, RF, URIC, CMP, HREMOP, INFTBG, CCP ####[facility] [address] [place] [place], [place] [phone] XR HAND 3V PA/LAT/OBL LTon 1 07-05-2016 [...] the right fifth metacarpalNo evidence of inflammatory arthropathy.Logistics/Shipper : NIKOS Transcribe Date/Time: May 05 2017 2:02PDictated by : Scott BEAULIEU examination was interpreted and the report reviewed and electronically signed by: JONATHAN KO MD on May 05 2017 3:02PM [id number] Normal [facility] XR HAND 3V PA/LAT/OBL RTon 1 07-05-2016 [...] the right fifth metacarpalNo evidence of inflammatory arthropathy.Logistics/Shipper : NIKOS Transcribe Date/Time: May 05 2017 2:02PDictated by : Scott BEAULIEU examination was interpreted and the report reviewed and electronically signed by: JONATHAN KO MD on May 05 2017 3:02PM [id number] Normal [facility] Vital Signs Date Time Vital Sign Value Performing Clinician Facility 02-13-2025 08:58-0400 Body height 170.[address] Cosme Berger MD Work Phone: [facility] 02-13-2025 08:58-0400 Body mass index (BMI) [Ratio] 36 kg/m2 Dr. Cosme Berger MD Work Phone: [facility] 02-13-2025 08:58-0400 Body weight 104.[address] Cosme Berger MD Work Phone: [facility] 02-13-2025 08:58-0400 Diastolic blood pressure 88 mm[Hg] Dr. Cosme Berger MD Work Phone: [facility] 02-13-2025 08:58-0400 Heart rate 76 /min Dr. Cosme Berger MD Work Phone: [facility] 02-13-2025 08:58-0400 Respiratory rate 16 /min Dr. Cosme Berger MD Work Phone: [facility] 02-13-2025 08:58-0400 Systolic blood pressure 136 mm[Hg] Dr. Cosme Berger MD Work Phone: 0(901)897-732405 [place] [address] 01-19-2025 20:13-0400 Body temperature 98.2 [degF] Dr. Cosme Berger MD Work Phone: 6(011)479-047505 [place] [address] 01-19-2025 20:13-0400 Diastolic blood pressure 94 mm[Hg] Dr. Cosme Berger MD Work Phone: 3(113)055-618405 [place] [address] 01-19-2025 20:13-0400 Heart rate 82 /min Dr. Cosme Berger MD Work Phone: 7(034)140-685405 [place] [address] 01-19-2025 20:13-0400 Respiratory rate 20 /min Dr. Cosme Berger MD Work Phone: 4(878)950-001705 [place] [address] 01-19-2025 20:13-0400 SaO2% (BldA) [Mass fraction] 96 % Dr. Cosme Berger MD Work Phone: [facility] 01-19-2025 20:13-0400 Systolic blood pressure 132 mm[Hg] Dr. Cosme Berger MD Work Phone: [facility] 01-19-2025 16:22-0400 Body height 170.[address] Cosme Berger MD Work Phone: [facility] 12-13-2024 12:01-0400 Body temperature 97.8 [degF] Dr. Cosme Berger MD Work Phone: [facility] 12-13-2024 12:01-0400 Diastolic blood pressure 87 mm[Hg] Dr. Cosme Berger MD Work Phone: [facility] 12-13-2024 12:01-0400 Heart rate 68 /min Dr. Cosme Berger MD Work Phone: 1(302)214-170705 [place] [address] 12-13-2024 12:01-0400 Respiratory rate 20 /min Dr. Cosme Berger MD Work Phone: 5(494)721-697705 [place] [address] 12-13-2024 12:01-0400 SaO2% (BldA) [Mass fraction] 94 % Dr. Cosme Berger MD Work Phone: 4(508)237-935805 [place] [address] 12-13-2024 12:01-0400 Systolic blood pressure 114 mm[Hg] Dr. Cosme Berger MD Work Phone: 2(649)812-755305 [place] [address] 12-13-2024 09:47-0400 Body height 170.[address] Cosme Berger MD Work Phone: 7(995)297-030960 [place] [address] 12-13-2024 09:47-0400 Body mass index (BMI) [Ratio] 35.8 kg/m2 Dr. Cosem Berger MD Work Phone: 7(204)104-720905 [place] [address] 12-13-2024 09:47-0400 Body weight 103.[address] Cosme Berger MD Work Phone: 0(354)632-259505 [place] [address] 11-30-2024 08:22-0400 Body height 170.[address] Cosme Berger MD Work Phone: 1(580)998-811705 [place] [address] 11-30-2024 08:22-0400 Body mass index (BMI) [Ratio] 36.2 kg/m2 Dr. Cosme Berger MD Work Phone: 2(251)461-713105 [place] [address] 11-30-2024 08:22-0400 Body temperature 97.2 [degF] Dr. Cosme Berger MD Work Phone: 7(491)348-591705 [place] [address] 11-30-2024 08:22-0400 Body weight 104.[address] Cosme Berger MD Work Phone: 7(512)657-676705 [place] [address] 11-30-2024 08:22-0400 Diastolic blood pressure 87 mm[Hg] Dr. Cosme Berger MD Work Phone: [facility] 11-30-2024 08:22-0400 Heart rate 92 /min Dr. Cosme Berger MD Work Phone: 5(086)213-735805 [place] [address] 11-30-2024 08:22-0400 Respiratory rate 18 /min Dr. Cosme Berger MD Work Phone: 9(886)847-495905 [place] [address] 11-30-2024 08:22-0400 SaO2% (BldA) [Mass fraction] 99 % Dr. Cosme Berger MD Work Phone: 0(155)095-848105 [place] [address] 11-30-2024 08:22-0400 Systolic blood pressure 134 mm[Hg] Dr. Cosme Berger MD Work Phone: 4(845)049-498205 [place] [address] 10-18-2024 11:02-0400 Body height 170.[address] Cosme Berger MD Work Phone: 7(592)107-085505 [place] [address] 10-18-2024 11:02-0400 Body mass index (BMI) [Ratio] 35.5 kg/m2 Dr. Cosme Berger MD Work Phone: 4(194)440-311405 [place] [address] 10-18-2024 11:02-0400 Body weight 102.[address] Cosme Berger MD Work Phone: 9(908)234-475805 [place] [address] 10-14-2024 05:54-0400 Body mass index (BMI) [Ratio] 35.4 kg/m2 Dr. Cosme Berger MD Work Phone: 3(399)856-346705 [place] [address] 10-14-2024 05:54-0400 Body weight 102.[address] Cosme Berger MD Work Phone: 3(201)232-014305 [place] [address] 10-14-2024 05:54-0400 Diastolic blood pressure 84 mm[Hg] Dr. Cosme Berger MD Work Phone: 6(867)200-373305 [place] [address] 10-14-2024 05:54-0400 Heart rate 73 /min Dr. Cosme Berger MD Work Phone: 9(722)843-259405 [place] [address] 10-14-2024 05:54-0400 Respiratory rate 18 /min Dr. Cosme Berger MD Work Phone: [facility] 10-14-2024 05:54-0400 SaO2% (BldA) [Mass fraction] 97 % Dr. Cosme Berger MD Work Phone: [facility] 10-14-2024 05:54-0400 Systolic blood pressure 139 mm[Hg] Dr. Cosme Berger MD Work Phone: [facility] 10-11-2024 11:47-0400 Body temperature 98 [degF] Dr. Cosme Berger MD Work Phone: [facility] 10-11-2024 11:47-0400 Diastolic blood pressure 70 mm[Hg] Dr. Cosme Berger MD Work Phone: [facility] 10-11-2024 11:47-0400 Heart rate 78 /min Dr. Cosme Berger MD Work Phone: [facility] 10-11-2024 11:47-0400 Respiratory rate 18 /min Dr. Cosme Berger MD Work Phone: [facility] 10-11-2024 11:47-0400 SaO2% (BldA) [Mass fraction] 99 % Dr. Cosme Berger MD Work Phone: [facility] 10-11-2024 11:47-0400 Systolic blood pressure 124 mm[Hg] Dr. Cosme Berger MD Work Phone: [facility] 10-11-2024 09:06-0400 Body mass index (BMI) [Ratio] 36.6 kg/m2 Dr. Cosme Berger MD Work Phone: [facility] 10-11-2024 09:06-0400 Body weight 106.[address] Cosme Berger MD Work Phone: [facility] 08-20-2022 08:10-0400 Diastolic Blood Pressure Non-Invasive 86 1 CONSTANTINO BERGMAN MD [facility] 08-20-2022 08:10-0400 Heart rate 66 /min CONSTANTINO BERGMAN MD [facility] Management 08-20-2022 08:10-0400 Respiratory rate 13 /min CONSTANTINO BERGMAN MD [facility] 08-20-2022 08:10-0400 Systolic Blood Pressure Non-Invasive 125 1 CONSTANTINO BERGMAN MD [facility] 08-20-2022 08:02-0400 Diastolic Blood Pressure Non-Invasive 71 1 CONSTANTINO BERGMAN MD [facility] 08-20-2022 08:02-0400 Heart rate 77 /min CONSTANTINO BERGMAN MD [facility] Management 08-20-2022 08:02-0400 Respiratory rate 10 /min CONSTANTINO BERGMAN MD [facility] 08-20-2022 08:02-0400 Systolic Blood Pressure Non-Invasive 120 1 CONSTANTINO BERGMAN MD [facility] 08-20-2022 07:44-0400 Diastolic Blood Pressure Non-Invasive 97 1 CONSTANTINO BERGMAN MD [facility] 08-20-2022 07:44-0400 Heart rate 73 /min CONSTANTINO BERGMAN MD [facility] 08-20-2022 07:44-0400 Respiratory rate 16 /min CONSTANTINO BERGMAN MD [facility] 08-20-2022 07:44-0400 Systolic Blood Pressure Non-Invasive 144 1 CONSTANTINO BERGMAN MD [facility] 08-20-2022 07:30-0400 Body height 170 cm CONSTANTINO BERGMAN MD [facility] 08-20-2022 07:30-0400 Body weight 99.6 kg CONSTANTINO BERGMAN MD [facility] 08-20-2022 07:30-0400 Body weight 34.46 kg/m2 CONSTANTINO BERGMAN MD [facility] 08-20-2022 07:30-0400 Heart rate 82 /min CONSTANTINO BERGMAN MD [facility] 11-19-2021 11:12-0400 Diastolic blood pressure 72 mm[Hg] Dr. Cosme Berger Work Phone: [facility] Work Phone: 11-19-2021 11:12-0400 Heart rate 80 /min Dr. Cosme Berger Work Phone: [facility] Work Phone: 11-19-2021 11:12-0400 Systolic blood pressure 105 mm[Hg] Dr. Cosme Berger Work Phone: [facility] Work Phone: 11-19-2021 10:44-0400 Body height 170.[address] Cosme Berger Work Phone: [facility] Work Phone: 11-19-2021 10:44-0400 Body weight 94.[address] Cosme Berger Work Phone: [facility] Work Phone: 11-19-2021 10:44-0400 Respiratory rate 16 /min Dr. Cosme Berger Work Phone: [facility] Work Phone: 12-19-2020 08:26-0400 Body mass index (BMI) [Ratio] 34 kg/m2 Dr. Cosme Berger Work Phone: [facility] Work Phone: Encounters Encounter Date Encounter Type Care Provider Facility Start: 04-18-2025 Encounter for other preprocedural examination [facility] Start: 04-18-2025 End: 04-18-2025 ambulatory Cosme Berger [facility] Start: 02-13-2025 End: 02-13-[address] Cosme Berger MD Work Phone: -Laboratory Start: 02-13-2025 End: 02-13-2025 Patient encounter procedure Olayinka French CREW SUPERVISOR-C -Laboratory Work Phone: Start: 02-13-2025 End: 02-13-2025 Patient encounter procedure Olayinka French CREW SUPERVISOR-C -[facility] Work Phone: Start: 02-13-2025 End: 02-13-[address] Cosme Berger MD Work Phone: -[facility] Start: 02-13-2025 End: 02-13-2025 ambulatory Cosme Berger Facility:[facility] Start: 02-02-2025 End: 02-02-[address] Bowen Nagel MD -[facility] Work Phone: Start: 02-02-2025 End: 02-02-[address] Cosme Berger MD Work Phone: -[facility] Start: 01-19-2025 End: 01-19-2025 Emergency department patient visit Dr. Cosme Berger MD Work Phone: -Emergency Department Work Phone: Start: 01-18-2025 End: 01-18-[address] Cosme Berger MD Work Phone: -[facility] Start: 01-18-2025 End: 01-18-[address] Bowen Nagel MD -[facility] Work Phone: Start: 01-18-2025 End: 01-18-2025 ambulatory Bowen Nagel Facility:[facility] Start: 12-13-2024 Non-patient / Non-visit Dr. Oliva Perea MD -[facility] Start: 12-13-2024 End: 12-13-2024 Admission to same day surgery center Dr. Peter Perea MD -[facility] Start: 12-13-2024 End: 12-13-[address] Cosme Berger MD Work Phone: -[facility] Start: 12-07-2024 End: 12-07-[address] Bowen Nagel MD -[facility] Work Phone: Start: 12-07-2024 End: 12-07-[address] Cosme Berger MD Work Phone: -[facility] Start: 11-30-2024 End: 11-30-[address] Peter Perea MD -[facility] Work Phone: Start: 11-30-2024 End: 11-30-[address] Cosme Berger MD Work Phone: [facility] Work Phone: Start: 11-26-2024 End: 11-26-[address] Cosme Berger MD Work Phone: [facility] Work Phone: Start: 11-26-2024 End: 11-26-2024 Patient encounter procedure Paola BRODERICK -[facility] Work Phone: Start: 11-26-2024 End: 11-26-2024 ambulatory [facility] Facility:[facility] Start: 10-18-2024 End: 10-18-[address] Juma Hamilton MD -[facility] Start: 10-18-2024 End: 10-18-[address] Cosme Berger MD Work Phone: [facility] Work Phone: Start: 10-14-2024 End: 10-14-2024 Patient encounter procedure Angie BRODERICK -[facility] Work Phone: Start: 10-14-2024 End: 10-14-20[facility] Start: 10-11-2024 End: 10-11-2024 Emergency department patient visit Dr. Flaquito Huerta DO -Emergency Department Work Phone: Start: 07-14-2024 End: 07-14-2024 Patient encounter procedure Jamia Summers -Laboratory Work Phone: Start: 07-14-2024 End: 07-14-2024 ambulatory Jamia Summers Facility:[facility] Start: 10-06-2023 End: 10-06-2023 ambulatory [facility] Work Phone: Start: 10-06-2023 End: 10-06-2023 Patient encounter procedure [facility] Work Phone: Start: 11-18-2022 End: 11-19-2022 ambulatory COSME BERGER MD Facility:A Start: 08-20-2022 End: 08-20-2022 ambulatory COSME BERGER MD Facility:A Start: 08-20-2022 End: 08-20-2022 Minor Procedure CONSTANTINO BERGMAN MD [facility] Start: 08-05-2022 End: 08-06-2022 ambulatory COSME BERGER MD Facility:A Start: 07-08-2022 End: 07-09-2022 ambulatory CONSTANTINO BERGMAN MD Facility:B Start: 07-08-2022 End: 07-08-2022 Patient encounter procedure CONSTANTINO BERGMAN MD [facility] Start: 07-07-2022 End: 07-08-2022 ambulatory CONSTANTINO BERGMAN MD Facility:A Start: 07-07-2022 End: 07-07-2022 Patient encounter procedure CONSTANTINO BERGMAN MD [facility] Start: 05-26-2022 End: 05-26-2022 ambulatory [facility] Work Phone: Start: 05-26-2022 End: 05-26-2022 Patient encounter procedure [facility] Start: 11-19-2021 End: 11-19-[address] Cosme Berger Work Phone: [facility] Start: 11-19-2021 End: 11-19-[address] Cosme Berger Work Phone: [facility] Start: 11-18-2021 End: 11-18-[address] Cosme Berger Work Phone: [facility] Start: 08-13-2017 End: 08-13-2017 Ambulatory ANANTHA MEZA [facility] Start: 08-05-2017 End: 08-07-2017 Ambulatory ANANTHA MEZA [facility] Start: 07-10-2017 Ambulatory AIDAN Schroeder [facility] Start: 07-10-2017 End: 07-10-2017 Ambulatory AIDAN Alexandre FRANCISCO [facility] Start: 05-05-2017 End: 05-05-2017 Ambulatory AIDAN EDMONDSON [facility] Start: 05-05-2017 End: 05-08-2017 Ambulatory AIDAN Alexandre FRANCISCO [facility] Procedures Date Procedure Procedure Detail Performing Clinician Start: 01-18-2025 MRI of cervical spine Cheryl Berger MD Work Phone: Start: 12-13-[address] Cosme Berger [...] med using the TPSA assay method for theDimension chemistry system. Values obtained with differentassay methods cannot be used interchangably.When changing PSA assays in the course of monitoring apatient, additional sequential testing should be carriedout to confirm baseline values. Start: 11-03-2023 History of placement of stent for coronary artery disease History of coronary artery stent placement Angie BRODERICK Comment on above: PCI-FLORY-Mid LAD with 3.00 x 24 synergy FLORY 11/25/2016;[id number], Mid and Distal RCA all with 3.0 x 28 mm Promus synergy stents 06/25/16;FLORY to Otial Diagonal 1 (2.25X18 [place]) and FLORY to mid RCA (3.0x12 [place]) 11/03/23 Start: 10-06-2023 Plain x-ray of pelvi [...] Treatment Date Care Activity Detail Author Start: 04-27-2025 ambulatory Ambulatory Facility:[facility] Start: 01-19-2025 [facility] Start: 01-18-2025 MR Cervical spine [facility] Start: 01-18-2025 MRI of cervical spine Spine Cervical (Routine) [facility] Start: 12-13-2024 Anesthesia hernia repair lower abdomen nos ANESTH REPAIR OF HERNIA [facility] Start: 12-13-2024 RPR AA HRN 1ST < 3 CM RDC RPR AA HRN 1ST < 3 CM RDC [facility] Start: 12-13-2024 Patient discharge [facility] Start: 10-18-2024 X-ray of lumbosacral spine L/S Spine Min 4 Views [facility] Start: 10-18-2024 XR Spine Lumbar and Sacrum GE 4 Views [facility] Start: 10-14-2024 Evaluation of diagnostic study results [facility] Start: 10-11-2024 [facility] Start: 10-11-2024 [facility] Hepatic function panel [place] Lipid 1996 panel - S carmencita or Plasma [facility] MR Cervical spine [facility] Heart Views W str ess and W radionuclide IV [facility] Work Phone: Nuclear Ab [Presence ] in Serum [facility] Work Phone: Patient Education [facility] Work Phone: Patient referral [facility] Work Phone: US Carotid arteries [facility] Work Phone: Payers Date Payer Category Payer Medicare [id number] 2024 Self-pay [id number] 2022 Private Health Insurance [facility] [id number] 2020 Private Health Insurance [facility] [id number] 2016 Unknown [id number] 1966 Unknown [id number] 2.16.8 [id number] 1966 Unknown [id number] 2.16.8 40.1.692931.3.579.2.627 1966 Unknown [id number] 2.16.8 40.1.532505.3.579.2.627 1966 Unknown [id number] 2.16.8 40.1.509144.3.579.2.627 1966 Unknown [id number] 2.16.8 40.1.957761.3.579.2.627 Medicare [id number] Unknown [id number] 2.16.8 40.1.994184.3.579.2.462 Unknown [id number] 2.16.8 40.1.619962.3.579.2.462 Unknown [id number] 2.16.8 40.1.155032.3.579.2.462 Unknown [id number] 2.16.8 40.1.713123.3.579.2.462 Unknown [id number] 2.16.8 40.1.797247.3.579.2.462 Unknown [id number] 2.16.8 40.1.706154.3.579.2.462 Unknown [id number] 2.16.8 40.1.582990.3.579.2.462 Unknown [id number] 2.16.8 40.1.212951.3.579.2.462 Unknown [id number] 2.16.8 40.1.260438.3.579.2.462 Unknown [id number] 2.16.8 40.1.000554.3.579.2.462 Unknown [id number] 2.16.8 40.1.096495.3.579.2.462 Unknown [id number] 2.16.8 40.1.816611.3.579.2.462 Unknown [id number] 2.16.8 40.1.801320.3.579.2.462 Unknown [id number] 2.16.8 40.1.238752.3.579.2.462 Unknown [id number] 2.16.8 40.1.749661.3.579.2.462 Unknown [id number] 2.16.8 40.1.147958.3.579.2.462 Unknown [id number] 2.16.8 40.1.196344.3.579.2.462 Unknown [id number] 2.16.8 40.1.169594.3.579.2.462 Social History Date Type Detail Facility Start: 11-19-2021 End: 06-12-2023 Tobacco smoking status WVIS Unknown if ever smoked [facility] Start: 12-19-2020 Occasional [facility] Start: 08-22-2018 None [facility] Start: 08-22-2018 Spouse/ Signif icant Other [facility] Start: 1965 Sex Assigned At Male W [facility] Start: 07-28-2020 End: 01-19-2025 Tobacco smoking status Never smoked tobacco (finding) [facility] Sex Assigned At Sex [facility] Start: 08-31-2016 Non-smoker [facility] Medical Equipment Procedure Code Equipment Code Equipment Origin al Text Equipment Identifier Dates Drug-eluting coronary artery stent, [id number] lymer-coated ()[id number] FDA Start: 10-30-2023 Drug-eluting coronary artery stent, [id number]-ii lymer-coated ()[id number] FDA Start: 10-30-2023 Goals Date Patient Goal Desired Activity /State Functional Status Date Assessment Result Facility 12-13-2024 Functional status Bathroom Privilege [facility] Work Phone: 08-20-2022 Functional Status Maintained [facility] Mental Status Date Assessment Result Facility 12-13-2024 Cognitive function Voice/Name [facility] Work Phone: 08-20-2022 Mental Status Orientation Oriented x 4 [facility] Clinical Notes 06-08-2016 to 12-13-2024 Note Date & Type Note Facility 12-13-2024 History and physical note [facility] 12-13-2024 Consult note Note Date/Time December 13, 2024 10:31am [facility] Medical Records Department [address] [place] [address] Pre-Anesthesia Evaluation 12/13/24 1012 MR#: [id number] Acct: [id number] Name: GRUPOTRISTIANARYAN Rep #:[id number] : 1965 59 From: Jacob Mckinney MD PCP: Dr. 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 Hx Hospitalization Yes: 2 ST[facility], 10/202312/01/24 11:14 Any Problems With Anesthesia [...] sips of water?: Yes PONV PONV - coffee brewer: PONV - coffee brewer Female No 12/01/24 11:14 HX of Motion [...] 12/13/24 09:47 Respiratory Assessment Respiratory Assessment - coffee brewer: Respiratory Tract Infection Hx - coffee brewer Hx Respiratory Tract Infection No 12/01/24 11:14 STOP Sleep Apnea STOP Sleep Apnea - coffee brewer: STOP Sleep Apnea - coffee brewer Hx Hypertension Yes: COTROLLED WITH MEDS 12/01/24 [...] Tobacco Use History Tobacco Use History - coffee brewer: Tobacco Use History - coffee brewer Tobacco Use Smoking Status Never smoker 12/01/24 11:14 Hx Tobacco Use No 12/01/24 11:14 Years Smoking Packs Smoked per Day Smoking Cessation Date was within the last 15 years Hx Smoking Cessation Date Hx Smoking Cessation No 12/01/24 11:14 Counseling Hematologic Medial History Hematologic Hx - coffee 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 Hx of Blood Transfusion No 12/01/24 11:14 [...] confused, unrespo /Reproduction History /Reproductive History - coffee brewer: /Reproductive Hx- coffee brewer Hx Now No 12/01/24 11:14 Gestational Age [...] into ascending aorta (06/25/16) Atherosclerotic heart disease [place]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 Hypercholesterolemia Non-STEMI (non-ST [...] mcg tablet 800 mcg PO BID 10/11/24 0511/30 History losartan 25 mg tablet 25 mg [...] MD Cosigner Signature: Date CC: ~ Signed [facility] Work Phone: 1(385) 705-725307-08-2025 Consult note [facility] Medical Records Department [address] [place] [address] Anesthesia Postop Eval I 12/13/24 1136 MR#: [id number] Acct: [id number] Name: ARYAN ROBERTS Rep #:[id number] : 1965 59 From: Rhiannon ABARCA PCP: Dr. 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 Cosme Berger MD Status:Aleena [facility] Discharge Instructions Procedure Hernia Diet Discharge [...] to schedule 2 week follow up appointment. [phone] Test Results: Test results from this visit will be discussed in further detail at your follow- up appointment, if applicable. Discharge Plan Admission Attending Provider: Peter Perea Primary Care Provider: Cosme Berger Instructions Print Language: Afghan Discharge Orders/Prescriptions Prescriptions: New oxycodone 5 mg [...] CC: Dr. Cosme Berger MD ~ Signed [facility]07-08-2025 History and physical note Author Peter [facility] Note Date/Time December 13, 2024 12:43 pm [facility] Medical Records Department [address] [place] [address] History & Physical Exam 12/13/24925 MR#: [id number] Acct: [id number] Name: ARYAN ROBERTS Rep #:[id number] : 1965 59 From: Peter franklin MD PCP: Dr. 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 Peter Perea MD Pager: [facility] [address] [place] [address], [address] [place] [address] Office: I have examined the patient and the H&P has been reviewed. There are no clinicalchanges since date of exam. 12/13/24 09 <Electronically signed by Peter Perea MD> Cosigner Signature (if applicable): CC: Dr. Peter Perea MD; Dr. Cosme Berger MD~ Signed [facility] Work Phone: 1(879) 554-155707-08-2025 Procedure note [facility] Medical Records Department [address] [place] [address] Operative Report 12/13/24 1122 MR#: [id number] Acct: [id number] Name: ARYAN ROBERTS Rep #:[id number] : 1965 59 From: Peter franklin MD PCP: Dr. Cosme Berger MD Status:[facility] Location: [place] [address] Operative Report (Standard) Operative Information Date of Procedure: 12/13/24 Pre-Operative Diagnosis: Umbilical hernia Post-Operative Diagnosis: Umbilical hernia Surgery/Procedure Performed: Umbilical hernia repair gas meter checker: No Type of Anesthesia: General/Regional RN Documented [...] Perea MD; Dr. Cosme Berger MD~ Signed [facility]07-08-2025 Consult note [facility] Medical Records Department [address] [place] [address] Pre-Anesthesia Evaluation 12/13/24 1012 MR#: [id number] Acct: [id number] Name: ARYAN ROBERTS Rep #:[id number] : 1965 59 From: Jacob Mckinney MD PCP: Dr. Cosme Berger MD Status:R [facility] Y Race: C Location: [place] [address] ASA Classification* ASA Classification ASA Classification: 3 [...] UMBILICAL HERNIA Anesthesia History Anesthesia History - coffee brewer: Anesthesia History - coffee brewer Hx Hospitalization Yes: 2 [facility], 10/202312/01/24 11:14 Any Problems With Anesthesia [...] sips of water?: Yes PONV PONV - coffee brewer: PONV - coffee brewer Female No 12/01/24 11:14 HX of Motion [...] 12/13/24 09:47 Respiratory Assessment Respiratory Assessment - coffee brewer: Respiratory Tract Infection Hx - coffee brewer Hx Respiratory Tract Infection No 12/01/24 11:14 STOP Sleep Apnea STOP Sleep Apnea - coffee brewer: STOP Sleep Apnea - coffee brewer Hx Hypertension Yes: COTROLLED WITH MEDS 12/01/24 [...] Tobacco Use History Tobacco Use History - coffee brewer: Tobacco Use History - coffee brewer Tobacco Use Smoking Status Never smoker 12/01/24 11:14 Hx Tobacco Use No 12/01/24 11:14 Years Smoking Packs Smoked per Day Smoking Cessation Date was within the last 15 years Hx Smoking Cessation Date Hx Smoking Cessation No 12/01/24 11:14 Counseling Hematologic Medial History Hematologic Hx - coffee 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 Hx of Blood Transfusion No 12/01/24 11:14 [...] confused, unrespo /Reproduction History /Reproductive History - coffee brewer: /Reproductive Hx- coffee brewer Hx Now No 12/01/24 11:14 Gestational Age [...] into ascending aorta (06/25/16) Atherosclerotic heart disease [place]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 Hypercholesterolemia Non-STEMI (non-ST [...] vamshi JIN> Date _ Jacob Mckinney MD [facility] Signature: Date CC: ~ Signed [facility]07-08-2025 [facility] Medical Records Department [address] [place] [address] History Physical Exam 12/13/24925 MR#: [id number] Acct: [id number] Name: ARYAN ROBERTS Rep #: [id number] : 1965 59 From: Peter Perea MD PCP: Dr. Cosme Berger MD Status:REG [facility] Location: [place] [address]- History and Physical Date of Admission: 12/13/24 [...] into ascending aorta (06/25/16) Atherosclerotic heart disease [place]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 Hypercholesterolemia Non-STEMI (non-ST [...] heart attack and heart (more content not included)...[facility]07-02-2025 Progress note [facility] [address] [place] [address] OFFICE VISIT Date of Service: 12/07/24 MR#: [id number] Acct: [id number] Name: ARYAN ROBERTS Rep #: [id number] : 1965 Provider: Dr. Bella Nagel MD Age/Sex: 59/M Location: [facility] Status: Signed Intake Vital Signs 10/18/24 11:02 [...] into ascending aorta (06/25/16) Atherosclerotic heart disease [place]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 Hypercholesterolemia Non-STEMI (non-ST [...] by me, Dr. Bowen Nagel MD 12/07/24 4502. 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 Cosme Berger MD ~ [facility]07-02-2025 Progress note Author Bowen Nagel [facility] Note Date/Time December 07, 2024 2:43p m [facility] [address] [place] [address] OFFICE VISIT Date of Service: 12/07/24 MR#: [id number] Acct: [id number] Name: ARYAN ROBERTS Rep #: [id number] : 1965 Provider: Dr. Bella Nagel MD Age/Sex: 59/M Location: [facility] Status: Signed Intake Vital Signs 10/18/24 11:02 [...] into ascending aorta (06/25/16) Atherosclerotic heart disease [place]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 Hypercholesterolemia Non-STEMI (non-ST [...] by me, Dr. Bowen Nagel MD 12/07/24 0120. 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 Patient was in agreement. 12/07/24 1444 <Electronically signed by Bowen Nagel MD> Date _ Bowen Nagel MD Cosigner Signature: Date (if applicable) CC: Dr. Cosme Berger MD ~ [facility] [employer] Work Phone: 1(881) 495-711706-25-2025 Evaluation note* Diagnosis Onset Date Resolution Status Admit Date Umbilical hernia acute November 8:09am Cervical myelopathy acute December 07, 2024 1:13pm Foraminal stenosis of lumbar region acute December 07, 2024 1:13pm Lumbar radiculopathy acute December 07, 2024 1:13pm Bulging of cervical intervertebral disc acute February 02, 2025 3:19pm Cervical myelopathy acute Augus t 2024 3:19pm 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 with axial back pain witho acute February 02 3:19pm Foraminal stenosis of lumbar region acute February 02 3:19pm Lumbar radiculopathy acute Augu st 2024 3:19pm Obesity (BMI 30-39.9) chronic Aug ust 2024 3:19pm Chronic back pain chronic Septemb er 2024 8:29am Coronary artery dissection June, chroni c February 13, 2025 8:29am Essential hypertension chronic Se ptember 2024 8:29am History of coronary artery stent placement November 03, 2023 chronic February 13, 2 025 8:29am Hypercholesterolemia chronic Feb ember 2024 8:29am Obesity (BMI 30-39.9) chronic Sep tember 2024 8:29am [facility] Work Phone: 1(192) 588-636105-13-2025 Evaluation note* Diagnosis Onset Date Resolution Status Admit Date 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 with axial back pain witho acute October 18, 2024 10:44am Lumbar radiculopathy acute October 18, 2024 10:44am Umbilical hernia acute November 8:09am Cervical myelopathy acute December 07, 2024 1:13pm Foraminal stenosis of lumbar region acute December 07, 2024 1:13pm Lumbar radiculopathy acute December 07, 2024 1:13pm Bulging of cervical intervertebral disc acute February 02, 2025 3:19pm Cervical myelopathy acute Augus t 2024 3:19pm 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 with axial back pain witho acute February 02 3:19pm Foraminal stenosis of lumbar region acute February 02 3:19pm Lumbar radiculopathy acute Augu st 2024 3:19pm Obesity (BMI 30-39.9) chronic Aug ust 2024 3:19pm Chronic back pain chronic Septemb er 2024 8:29am Coronary artery dissection June, chroni c February 13, 2025 8:29am Essential hypertension chronic Se ptember 2024 8:29am History of coronary artery stent placement November 03, 2023 chronic February 13, 025 8:29am Hypercholesterolemia chronic Feb emb2024 8:29am Obesity (BMI 30-39.9) chronic Sep 2024 8:29am [employer] Work Phone: 1(813) 474-600605-09-2025 Evaluation note* Diagnosis Onset Date Resolution Status Admit Date Atherosclerotic heart diseas e [place]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 chronic October 14, 2024 8:19am Essential hypertension chronic Ma 2024 8:19am History of coronary artery s tent placement November 03, 2023 chronic October 14, 2024 8:19am Hypercholesterolemia chronic October 14, 2024 8:19am Coronary artery dissection June, inacti ve October 14, 2024 8:19am [employer] Work Phone: 1(340) 245-647405-09-2025 Evaluation note* Diagnosis Onset Date Resolution Status Admit Date Atherosclerotic heart diseas e [place]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 chronic October 14, [...] Lumbar radiculopathy acute October 18, 2024 10:44am [facility] Work Phone: 1(509) 918-851805-09-2025 Evaluation note* Diagnosis Onset Date Resolution Status Admit Date Atherosclerotic heart diseas e [place]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 chronic October 14, [...] 2024 10:44am Umbilical hernia acute November 8:09am [facility] Work Phone: 1(488) 871-615505-09-2025 Evaluation note* Diagnosis Onset Date Resolution Status Admit Date Atherosclerotic heart diseas e [place]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 chronic October 14, [...] Lumbar radiculopathy acute December 07, 2024 1:13pm [facility] Work Phone: 1(108) 208-608305-09-2025 Evaluation note* Diagnosis Onset Date Resolution Status Admit Date Atherosclerotic heart diseas e [place]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 chronic October 14, [...] Lumbar radiculopathy acute December 07, 2024 1:13pm Bulging of cervical intervertebral disc acute February 02, 2025 3:19pm Cervical myelopathy acute 2024 3:19pm 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 with axial back pain witho acute February 02 3:19pm Foraminal stenosis of lumbar region acute February 02 3:19pm Lumbar radiculopathy acute Janu st 2024 3:19pm Obesity (BMI 30-39.9) acute Jan us2024 3:19pm [facility] Work Phone: 1(480) 521-553203-15-2023 Hospital Discharge instructions Patient Education 08/20/2022 07:28:33 Discharge trigger MALAIKA (79128) [facility] Discharge Instructions POST PROCEDURE [...] bandaid dry and remove in 24 hours. [facility] 03-15-2023 Summary of episode [...] medication providers or retail pharmacies. Education Materials [facility] Discharge Instructions POST PROCEDURE [...] to receive it can visit one of [facility] vaccine clinics. There are many vaccine clinic locations within the [facility]. For locations and available times, please visit [email or web address].gov/. It is important to note that some COVID mobile vaccine clinics are held outdoors and may be canceled in rainy or stormy conditions. To learn more about pediatric vaccinations (ages 5-11), we invite you to visit the [facility] webpage. [email or web address]/[email or web address]-Jpthy-[email or web address] [email or web address] learn more about the COVID-19 vaccine, we invite you to visit the CDC website for a list of frequently asked questions. https://www.cdc.gov/coronavirus/2019-ncov/vaccines/faq.html [facility] Patient Portal Access Instructions: Stay connected with your healthcare team and access your personal medical information anytime with the [facility] Patient Portal.If you would like a full copy of your medical records, please contact the [facility] Medical Records Department, Thursday through Thursday between 8a.m. and 4:30p.m. Please follow the directions below to access the portal: 1.Access the email account you provided upon registration to the hospital.2.Look for an invitation email from [facility].3.Open the email and access the invitation link: Accept Invitation to [employer].Fill in the required walker to create your account. Sign into www.[employer] with your username and password that you [...] you will allow to register on the [facility] Patient Portal for access to your information. You can also access the [facility] Patient Portal on the [facility]. Simply click on Health Records under [employer] and then click on the [employer] logo. HOW TO SAFELY DISPOSE OF PRESCRIPTION [...] Call your local pharmacy or go to http://Workbooks.Soompi/0U1Nl3g to find one close to you.3.Make use of household items: Use cat litter or old coffee grounds to dispose medications if other options arenot available. Mix your drugs with these household products, seal them in an airtight container andthrow it into the garbage. Call [facility]: [phone] to be sure your drugs can be [...] Signatures Patient Education Materials Discharge trigger MALAIKA (01765) Medication Leaflets My discharge plan and instructions have been reviewed and explained to me and I,ARYAN ROBERTS understand my current condition and have read and understand these discharge instructions. I have received a written copy of the plan/instructions. If I have questions, I am aware that I should contact my doctor. Patient/Clutch Specialist Signature: Date/Time: Relationship to Patient: Witness Name/Signature: Date/Time: [facility] [id number] History and physical note History and Physical [...] tab(s), 0 Refill(s), 08/15/22 8:40:00 EST, Pharmacy: [facility], Myalgia Chronic pain, 170, cm, [...] tab(s), 0 Refill(s), 08/15/22 8:40:00 EST, Pharmacy: [facility], Myalgia Chronic pain, 170, cm, 02/28/23 8:07:00 EST, Height PM TPI 3 or more Muscles 3. Spondylosis of lumbar region without myelopathy or radiculopathy Ordered: PM TPI 3 or more Muscles 4. Thoracic spondylosis Ordered: PM TPI 3 or more Muscles 5. Right hip pain Right hip x-rays normal reviewed with patient. Likely muscular component of pain. Ordered: PM TPI 3 or more Muscles [id number] 6. Coronary artery disease Taking Plavix and [...] CONSTANTINO BERGMAN MD on 08/20/2022 07:28 AM [facility] Pain [id number] Evaluation note* Diagnosis Onset Date Resolution Status Coronary artery dissection June, acute Dizziness acute Atherosclerotic heart diseas e [place]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 chronic Essential hypertension chron ic History of coronary artery stent placement November 25, 2016 chronic Hypercholesterolemia chronic [facility] Work Phone: Consult note Author Rhiannon Mcclellan [facility] Note Date/Time December 13, 2024 11:39 am [facility] Medical Records Department [address] [place] [address] Anesthesia Postop Eval I 12/13/24 1136 MR#: [id number] Acct: [id number] Name: ARYAN [place]S Rep #:[id number] : 1965 59 From: Rhiannon ABARCA PCP: Dr. Cosme Berger MD Status:Aleena [facility]KH[facility] Y Race: C Location: [place] [address] Anesthesia: Postop Eval I Current Vital Signs [...] 12/13/24 1139 <Electronically signed by Rhiannon Mcclellan CRNA> Date _ Rhiannon Mcclellan CRNA Cosigner Signature: Date CC: ~ Signed [facility] Work Phone: Discharge summary Author [facility] Note Date/Time December 13, 2024 11:27 am [facility] Medical Records Department [address] [place] [address] Instructions for Home/Discharge Instructions 12/13/24 1125 MR#: [id number] Acct: [id number] Name: ARYAN [place] Rep #:[id number] : 1965 59 From: Peter franklin MD PCP: Dr. Cosme Berger MD Status:Aleena [facility] Discharge Instructions Procedure Hernia Diet Discharge Diet: [...] to schedule 2 week follow up appointment. [phone] Test Results: Test results from this visit will be discussed in further detail at your follow- up appointment, if applicable. Discharge Plan Admission Attending Provider: Peter Perea Primary Care Provider: Cosme Berger Instructions Print Language: Afghan Discharge Orders/Prescriptions Prescriptions: New oxycodone 5 mg [...] CC: Dr. Cosme Berger MD ~ Signed [facility] Work Phone: Evaluation + Plan note [...] 07/07/22 * XR Spine Lumbar AP/LAT/FLEX/EXT 07/07/22 [facility] Evaluation + Plan note Future Appointments Appointment Date:08/05/2022 08:00:00 AM Scheduled Provider:CONSTANTINO BERGMAN MD Location:PM Office Appointment Type:PM OV Diagnostic Tests Pending * Rheumatoid Factor 07/08/22 * Antinuclear Antibody Screen, Serum 07/08/22 [facility] Evaluation + Plan note Future Appointments Appointment Date:09/26/2022 09:00:00 AM Scheduled Provider:CONSTANTINO BERGMAN MD Location:PM Office Appointment Type:PM OV [facility] Evaluation noteNo assessment information available [facility] Work Phone: Hospital course Narrative No data available for this section [facility] Hospital Discharge instructions No data available for this section [facility] Hospital Discharge instructionsAdditional Instructions I discussed with the office of Dr. Woods, your appointment is to January 25 at 9:45 AM. Take prednisone as prescribed. If you are on meloxicam do not take this. Discussed with your cardiology office tomorrow if you could hold both your aspirin and your Plavix in preparation of your office visit for potential procedures. Discussed if you need to continue your Plavix as your stent was placed over a year ago.[facility] Work Phone: Progress note No data available for this section [facility] reason for referral (narrative)No reason for referral information [facility] Work Phone: Summary Purpose Family History No Family History Records Found Relationship Condition Age at Onset Recorded Date/T chad mother Coronary artery disease Unknown Rheumatic fever Unknown brother Coronary artery disease Unknown Advance Directives No Advanced Directives Records Found Advance Directive Response Recorded Date/ Time Advance Directives No June 25, 2016 11:33am Living Will No August 22, 2018 6:22pm Power of Cellars Supervisor No August 22 6:22pm Advance Directive Response Recorded Date/ Time Advance Directives No June 25, 2016 10:33am Living Will No August 22, 2018 5:22pm Power of Cellars Supervisor No August 22 5:22pm Advance Directive Response Recorded Date/ Time Do you have a Healthcare Power of Cellars Supervisor? No October 11, 2024 9:17am Advance Directives No June 25, 2016 11:33am Advance Directive Response Recorded Date/ Time Do you have a Healthcare Power of Cellars Supervisor? No October 11, 2024 9:17am Do you have a Healthcare Power of Cellars Supervisor? No December 01, 2024 11:14am Advance Directives No June 25, 2016 11:33am Advance Directive Response Recorded Date/ Time Do you have a Healthcare Power of Cellars Supervisor? No October 11, 2024 9:17am Do you have a Healthcare Power of Cellars Supervisor? No December 01, 2024 11:14am Do you have a Healthcare Power of Cellars Supervisor? No January 19, 2025 6:13pm Advance Directives No June 25, 2016 11:33am Advance Directive Response Recorded Date/ Time Living Will No October 29, 2023 6 :49pm Do you have a Healthcare Power of Cellars Supervisor? No October 29, 2023 6:49pm Do you have a Healthcare Power of Cellars Supervisor? No December 01, 2024 11:14am Do you have a Healthcare Power of Cellars Supervisor? No January 19, 2025 6:13pm Advance Directives No June 25, 2016 11:33am Procedure Findings Note [facility] Patient Name: ARYAN ROBERTS0 [employer] [address] Date of : [address] [place] [address] Unit Number: [id number] Procedure Note Patient Status: REG [facility] Attending Doctor: Issa Menard MD Service Date: [...] artery diss ection Dizziness Atherosclerotic heart disease [place]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 Essential hypertension History of coronary artery stent placement Hypercholesterolemia Chief Complaint Admit Date CHRONIC BACK PAIN October 11, 2024 8:27am s/p ER but something still not right M ay 2024 8:19am LUMBAR SPINE October 18, 2024 10:44 am RM 1 October 18, 2024 11:20 am Reason for Visit Admit Date Atherosclerotic heart diseas e [place]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 October 14, 2024 [...] SPINE October 18, 2024 10:44 am RM October 18, 2024 11:20 am Pain November 26, 2024 10:4 6am UMBILICAL HERNIA November 30, 2024 8:09 am Reason for Visit Admit Date Atherosclerotic heart diseas e [place]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 October 14, 2024 [...] Visit Admit Date Atherosclerotic heart diseas e [place]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 October 14, 2024 [...] Visit Admit Date Atherosclerotic heart diseas e [place]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 October 14, 2024 [...] Hernia, Umbilical Repair December 13, 2024 9:26am Chief Complaint Admit Date CHRONIC BACK PAIN October 11, 2024 8:27am s/p ER but something still not right M ay 2024 8:19am LUMBAR SPINE October 18, 2024 10:44 am RM October 18, 2024 11:20 am Pain November 26, 2024 10:4 6am UMBILICAL HERNIA November 30, 2024 8:09 am LUMBAR SPINE December 07, 2024 1:13p m Hernia, Umbilical Repair December 13, 2024 9:06am Hernia, Umbilical Repair December 13, 2024 9:26am cervical myelopathy, pain January 18, 2 025 7:00am back January 19, 2025 4: 14pm Chief Complaint Admit Date CHRONIC BACK PAIN October 11, 2024 8:27am s/p ER but something still not right M ay 2024 8:19am LUMBAR SPINE October 18, 2024 10:44 am RM October 18, 2024 11:20 am Pain November 26, 2024 10:4 6am UMBILICAL HERNIA November 30, 2024 8:09 am LUMBAR SPINE December 07, 2024 1:13p m Hernia, Umbilical Repair December 13, 2024 9:06am Hernia, Umbilical Repair December 13, 2024 9:26am cervical myelopathy, pain January 18, 2 025 7:00am back January 19, 2025 4: 14pm CERVICAL SPINE February 02, 2025 3: 19pm Reason for Visit Admit Date Atherosclerotic heart diseas e [place]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 October 14, 2024 [...] Lumbar radiculopathy December 07, 2024 1:13 pm Bulging of cervical intervertebral disc February 02, 2025 3:19pm Cervical myelopathy February 02, 2025 3: 19pm 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 with axial back pain witho February 02, 2025 3:19pm Foraminal stenosis of lumbar region Augu st 2024 3:19pm Lumbar radiculopathy February 02, 2025 3 :19pm Obesity (BMI 30-39.9) February 02, 2025 3:19pm Chief Complaint Admit Date LUMBAR SPINE October 18, 2024 10:44 am RM 1 October 18, 2024 11:20 am Pain November 26, 2024 10:4 6am UMBILICAL HERNIA November 30, 2024 8:09 am LUMBAR SPINE December 07, 2024 1:13p m Hernia, Umbilical Repair December 13, 2024 9:06am Hernia, Umbilical Repair December 13, 2024 9:26am cervical myelopathy, pain January 18, 2 025 7:00am back January 19, 2025 4: 14pm CERVICAL SPINE February 02, 2025 3: 19pm 1 Y FU/MOVED FROM [facility] February 13 8:29am Reason for Visit Admit Date 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 with axial back pain witho October 18, 2024 10:44am Lumbar radiculopathy October 18, 2024 10:4 4am Umbilical hernia November 30, 2024 8:09 am Cervical myelopathy December 07, 2024 1:13p m Foraminal stenosis of lumbar region December 07, 2024 1:13pm Lumbar radiculopathy December 07, 2024 1:13 pm Bulging of cervical intervertebral disc February 02, 2025 3:19pm Cervical myelopathy February 02, 2025 3: 19pm 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 with axial back pain witho February 02, 2025 3:19pm Foraminal stenosis of lumbar region Augu 2024 3:19pm Lumbar radiculopathy February 02, 2025 3 :19pm Obesity (BMI 30-39.9) February 02, 2025 3:19pm Chronic back pain February 13, 2025 8:29am Coronary artery dissection February 8:29am Essential hypertension February 13 8:29am History of coronary artery stent placeme nt February 13, 2025 8:29am Hypercholesterolemia February 13, 2025 8:29am Obesity (BMI 30-39.9) February 13 8:29am Chief Complaint Admit Date Pain November 26, 2024 10:4 6am UMBILICAL HERNIA November 30, 2024 8:09 am LUMBAR SPINE December 07, 2024 1:13p m Hernia, Umbilical Repair December 13, 2024 9:06am Hernia, Umbilical Repair December 13, 2024 9:26am cervical myelopathy, pain January 18, 2 025 7:00am back January 19, 2025 4: 14pm CERVICAL SPINE February 02, 2025 3: 19pm 1 Y FU/MOVED FROM [facility] February 13 8:29am Reason for Visit Admit Date Umbilical hernia November 30, 2024 8:09 am Cervical myelopathy December 07, 2024 1:13p m Foraminal stenosis of lumbar region December 07, 2024 1:13pm Lumbar radiculopathy December 07, 2024 1:13 pm Bulging of cervical intervertebral disc February 02, 2025 3:19pm Cervical myelopathy February 02, 2025 3: 19pm 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 with axial back pain witho February 02, 2025 3:19pm Foraminal stenosis of lumbar region Augu st 2024 3:19pm Lumbar radiculopathy February 02, 2025 3 :19pm Obesity (BMI 30-39.9) February 02, 2025 3:19pm Chronic back pain February 13, 2025 8:29am Coronary artery dissection February 8:29am Essential hypertension February 13 8:29am History of coronary artery stent placeme nt February 13, 2025 8:29am Hypercholesterolemia February 13, 2025 8:29am Obesity (BMI 30-39.9) February 13 8:29am Additional Source Comments (unrecognized sect ion and content) No Status Records FoundNo Status Records FoundNo Status Records FoundNo Status Records Found INFORMATION SOURCE (unrecogn ized section and content) DATE CREATED AUTHOR 11/27/2017 [facility] DATE CREATED AUTHOR AUTHOR'S ORGANIZ ATION 08/02/2020 [facility] DATE CREATED AUTHOR AUTHOR'S ORGANIZ ATION 11/29/2022 [facility] ([place] DATE CREATED AUTHOR AUTHOR'S ORGANIZ ATION 04/19/2025 [facility] Goals (unrecognized section and content) Goals may [...] Member Role: Primary Care Physician Address: Address: [address] [place] [address] DR ELVIS CLOLINS [address] Care Team Related Persons Name: SUZIE FAY Care Team Personnel Name: COSME BERGER MD Position: P3 Physician - Family Medicine Member Role: Primary Care Physician Address: Address: [address] ELVIS COLLINS [address] Care Team Related Persons Name: SUZIE [...] 14, 2024 End: July 14, 2024 Jamia [place] Attending Provider Active Start : July 14, 2024 End: July 14, 2024 Jamia [place] Referring Provider Active Start : July 14, [...] Other Provider Active Start: December 13, 2024 Team Status: Active Member Role/Relationship Status Dates Dr. Cosme Berger MD Primary Care Provider Active Start: January 18, 2025 Dr. Bowen Nagel MD Attending Provider Active Start: January 18, 2025 Dr. Bowen Nagel MD Referring Provider Active Start: January 18, 2025 Team Status: Inactive Member Role/Relationship Status Dates Dr. Cosme Berger MD Primary Care Provider Active Start: January 19, 2025 End: January 19, 2025 Dr. Tru Brito DO Emergency Provider Active Start : January 19, 2025 End: January 19, 2025 Team Status: Inactive Member Role/Relationship Status Dates Dr. Cosme Berger MD Primary Care Provider Active Start: January 18, 2025 End: January 18, 2025 Dr. Bowen Nagel MD Attending Provider Active Start: January 18, 2025 End: January 18, 2025 Dr. Bowen Nagel MD Referring Provider Active Start: January 18, 2025 End: January 18, 2025 Team Status: Inactive Member Role/Relationship Status Dates Dr. Cosme Berger MD Primary Care Provider Active Start: January 19, 2025 End: January 19, 2025 Dr. Tru Brito DO Attending Provider Active Start : January 19, 2025 End: January 19, 2025 Dr. Tru Brito DO Emergency Provider Active Start : January 19, 2025 End: January 19, 2025 Team Status: Inactive Member Role/Relationship Status Dates Dr. Cosme Berger MD Primary Care Provider Active Start: February 02, 2025 End: February 02, 2025 Dr. Cosme Berger MD Referring Provider Active Start: February 02, 2025 End: February 02, 2025 Dr. Bowen Nagel MD Attending Provider Active Start: February 02, 2025 End: February 02, 2025 Team Status: Inactive Member Role/Relationship Status Dates [...] Other Provider Active Start: December 13, 2024 Team Status: Inactive Member Role/Relationship Status Dates Dr. Cosme Berger MD Primary Care Provider Active Start: January 18, 2025 End: January 18, 2025 Dr. Bowen Nagel MD Attending Provider Active Start: January 18, 2025 End: January 18, 2025 Dr. Bowen Nagel MD Referring Provider Active Start: January 18, 2025 End: January 18, 2025 Team Status: Inactive Member Role/Relationship Status Dates Dr. Cosme Berger MD Primary Care Provider Active Start: January 19, 2025 End: January 19, 2025 Dr. Tru Brito DO Attending Provider Active Start : January 19, 2025 End: January 19, 2025 Dr. Tru Brito DO Emergency Provider Active Start : January 19, 2025 End: January 19, 2025 Team Status: Inactive Member Role/Relationship Status Dates Dr. Cosme Berger MD Primary Care Provider Active Start: February 02, 2025 End: February 02, 2025 Dr. Cosme Berger MD Referring Provider Active Start: February 02, 2025 End: February 02, 2025 Dr. Bowen Nagel MD Attending Provider Active Start: February 02, 2025 End: February 02, 2025 Team Status: Inactive Member Role/Relationship Status Dates Dr. Cosme Berger MD Primary Care Provider Active Start: February 13, 2025 End: February 13, 2025 Dr. Cosme Berger MD Referring Provider Active Start: February 13, 2025 End: February 13, 2025 Olayinka French NP, CREW SUPERVISOR-C Attending Provider Active S tart: February 13, 2025 End: February 13, 2025 Team Status: Inactive Member Role/Relationship Status Dates [...] 30, 2024 End: November 30, 2024 Dr. Csome Berger MD Referring Provider Active Start: November [...] Other Provider Active Start: December 13, 2024 Team Status: Inactive Member Role/Relationship Status Dates Dr. Cosme Berger MD Primary Care Provider Active Start: January 18, 2025 End: January 18, 2025 Dr. Bowen Nagel MD Attending Provider Active Start: January 18, 2025 End: January 18, 2025 Dr. Bowen Nagel MD Referring Provider Active Start: January 18, 2025 End: January 18, 2025 Team Status: Inactive Member Role/Relationship Status Dates Dr. Cosme Berger MD Primary Care Provider Active Start: January 19, 2025 End: January 19, 2025 Dr. Tru Brito DO Attending Provider Active Start : January 19, 2025 End: January 19, 2025 Dr. Tru Brito DO Emergency Provider Active Start : January 19, 2025 End: January 19, 2025 Team Status: Inactive Member Role/Relationship Status Dates Dr. Cosme Berger MD Primary Care Provider Active Start: February 02, 2025 End: February 02, 2025 Dr. Cosme Berger MD Referring Provider Active Start: February 02, 2025 End: February 02, 2025 Dr. Bowen Nagel MD Attending Provider Active Start: February 02, 2025 End: February 02, 2025 Team Status: Inactive Member Role/Relationship Status Dates Dr. Cosme Berger MD Primary Care Provider Active Start: February 13, 2025 End: February 13, 2025 Dr. Cosme Berger MD Referring Provider Active Start: February 13, 2025 End: February 13, 2025 lOayinka French CREW SUPERVISOR, CREW SUPERVISOR-C Attending Provider Active S tart: February 13, 2025 End: February 13, 2025 Team Status: Inactive Member Role/Relationship Status Dates Dr. Cosme Berger MD Primary Care Provider Active Start: February 13, 2025 End: February 13, 2025 Olayinka French CREW SUPERVISOR, CREW SUPERVISOR-C Attending Provider Active S tart: February 13, 2025 End: February 13, 2025 Olayinka French CREW SUPERVISOR, CREW SUPERVISOR-C Referring Provider Active S tart: February 13, 2025 End: February 13, 2025 FOR RECORDS PERTAINING TO PATIENTS WHO ARE [...] BE BASED ON THE PRIMARY CLINICAL RECORDS. [facility] [employer] provides no warranty or guarantee of the accuracy or completeness of information in this document.
--- OUTSIDE RECORDS SUMMARY | 2025-04-27 05:58 | XMS RPT_ITS | CCD ---
Author Organization [facility] CliniSywy Care Team Providers Care Regional Recruiter Name Role Phone FRANCISCO, AIDAN A Unavailable Unavailable FRANCISCO, AIDAN A Unavailable Unavailable FRANCISCO, AIDAN A Unavailable Unavailable FRANCISCO, AIDAN A Unavailable Unavailable FRANCISCO, AIDAN A Unavailable Unavailable FRANCISCO, AIDAN A Unavailable Unavailable MEZA, ANANTHA Unavailable Unavailable FRANCISCO, AIDAN A Unavailable Unavailable MEZA, ANANTHA Unavailable Unavailable MEZA, ANANTHA Unavailable Unavailable Dr. Cosme Berger Primary Care Provider Dr. Cosme Berger Referring Provider [facility] TELEPHONE CLEANER, TELEPHONE CLEANER-Aashish Trent Attending Provider [phone] AB JIN, COSME Flood Primary Care Physician PACHECO JIN, CONSTANTINO Austin [...] Primary Care Provider Jamia Summers Attending Provider [phone] Jamia Summers Referring Provider Dr. Flaquito Huerta DO Attending Provider Dr. Flaquito Huerta DO Emergency Provider [phone]. Cosme Berger MD Referring Provider Angie [...] Dr. Donaldson Referring Provider [phone] Gillian TELEPHONE CLEANER-C, Olayinka Trent Attending Provider Ab JIN, Dr. Donaldson Primary Care Provider Paola Funk Attending Provider [phone] Ab JIN, Dr. Donaldson Referring Provider [phone] Gillian TELEPHONE CLEANER-C, Olayinka Trent Referring Provider Bowen Nagel Attending [...] Unavailable Ab, Cosme Primary Care Unavailable Ab, Ocsme Referring Unavailable Ab, Cosme Primary Care Unavailable [...] Unavailable Ab, Cosme Primary Care Unavailable Roof TELEPHONE CLEANER, Olayinka H Referring Unavailable Roof TELEPHONE CLEANER, Olayinka H Attending Unavailable Ab, Cosme Primary Care Unavailable Luis Fernando, Paola Referring Unavailable Luis Fernando, Paola Attending Unavailable Nagel, Bowen Referring Unavailable Nagel, Bowen Attending Unavailable Ab, Cosme Primary Care Unavailable Nagel, Bowen Admitting Unavailable Barnett, Jamia Attending Unavailable Ab, Cosme Primary Care Unavailable Barnett, Jamia Referring Unavailable Ab, Cosme Primary Care [...] Translations: [HYDROCODONE-ACET AMINOPHEN] Drug Allergy 7 AOF [facility] Repository (15 sources) atorvastatin Drug Allergy 2 mylagias [facility] (15 sources) evolocumab; Translations: [evolocumab] Drug Allergy 2 headache, flu-like symptoms, arthritic pain, Blurred vision [facility] (16 sources) HYDROcodone; Translations: [hydrocodone bitartrate] Drug Allergy 2 Itching [facility] (18 sources) Pravastatin; Translations: [pravastatin] Drug Allergy 2 Adverse reaction to drug (disorder) [facility] (3 sources) Acetaminophen / HYDROcodone; Translations: [acetaminophen-hy drocodone] Drug Allergy [facility] (3 sources) celecoxib; Translations: [celecoxib] [...] Drug Allergy Adverse reaction to drug (disorder) [facility] (3 sources) meloxicam; Translations: [meloxicam] Drug Allergy Adverse reaction to drug (disorder) [facility] (3 sources) Methocarbamol; Translations: [methocarbamol] Drug Allergy Adverse reaction to drug (disorder) [facility] (3 sources) montelukast; Translations: [montelukast] Drug Allergy Adverse reaction to drug (disorder) [facility] (3 sources) nabumetone; Translations: [nabumetone] Drug Allergy Reaction (qualifier value) [facility] (3 sources) pitavastatin; Translations: [pitavastatin] Drug Allergy [facility] (3 sources) predniSONE; Translations: [prednisone] Drug Allergy Adverse reaction to drug (disorder) [facility] (3 sources) pregabalin; Translations: [pregabalin] Drug Allergy Adverse reaction to drug (disorder) [facility] (3 sources) rosuvastatin; Translations: [rosuvastatin] Drug Allergy Adverse reaction to drug (disorder) [facility] (3 sources) Simvastatin; Translations: [simvastatin] Drug Allergy Reaction (qualifier value) [facility] (3 sources) tamsulosin; Translations: [tamsulosin] Drug Allergy Adverse reaction to drug (disorder) [facility] (3 sources) tiZANidine; Translations: [tizanidine] Drug Allergy Adverse reaction to drug (disorder) [facility] (3 sources) topiramate; Translations: [topiramate] Drug Allergy Adverse reaction to drug (disorder) [facility] (3 sources) traMADol; Translations: [tramadol] Drug Allergy Adverse reaction to drug (disorder) [facility] (12 sources) Metoprolol Drug Allergy 4 Rash [facility] (1 source) atorvastatin Drug Allergy 5 [facility] Repository (1 source) Metoprolol Drug Allergy 5 [facility] Rep[facility] (1 source) Pravastatin Drug Allergy 5 [facility] Repository Medications Current Medications Medication Drug [...] 4-10 14 5 0 [place] 8th, 2025 [place] 28th, 2025 3:36pm Umbilical hernia Umbilical hernia [...] 10-14-2024 Chronic Comment on above: PCI-FLORY-Mid LAD [id number], MId and Distal RCA with coronary artery [...] Facility Orthopedic Visit Reporton Orthopedic Visit Report [facility] [address] [place] [id number] OFFICE VISIT Date of Service: 04/18/25 MR#: [id number] Acct: [id number] Name: ARYAN ROBERTS Rep #: [id number] : 1965 Provider: Dr. Bowen Nagel MD [...] into ascending aorta (06/25/16) Atherosclerotic heart disease [place]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 Hypercholesterolemia Non-STEMI (non-ST [...] by me, Dr. Bowen Nagel MD 04/18/25 3415. 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 He denies having diabetes or smoking, which are positive factors for his surgical recovery. - Neurological: Reports numbness in bilateral arms, particularly at night, worsening over the past year and a half. - Cardiovascular: Denies chest pain, breathing difficulties, and has discontinued Plavix and aspirin. - End (more content not included)... Normal [facility] MRSA/SAID NASAL SCREENon MRSA+SAID SCRN Reason for Exam: Bisi minh MRSA MRSA Negative S. AUREUS S. aureus Negative Normal [facility] Comment on above: Performed By: #### B TSPAT, L501.5200, L500.2500, M100.651, L100.0100, L501.9985 ####[facility] [address] [place], [address] Basic Metabolic Profile (BMP )on 04-13-2025 BUN/CRE 12.4 RATIO Normal 10-20 [facility] Comment on above: Performed By: #### B TSPAT, L501.5200, L500.2500, M100.651, L100.0100, L501.9985 ####[facility] [address] [place], [address] Calcium [Mass/Vol] 9.9 mg/dL Normal 7.6-11.0 [facility] Comment on above: Performed By: #### B TSPAT, L501.5200, L500.2500, M100.651, L100.0100, L501.9985 ####[facility] [address] [place], [address] Chloride [Moles/Vol] 109 mmol/L High 98-108 [place] Comment on above: Performed By: #### B TSPAT, L501.5200, L500.2500, M100.651, L100.0100, L501.9985 ####[facility] [address] [place], [address] CO2 [Moles/Vol] 25.0 mmol/L Normal 21.0-32.0 [facility] Comment on above: Performed By: #### B TSPAT, L501.5200, L500.2500, M100.651, L100.0100, L501.9985 ####[facility] [address] [place], [address] Creatinine [Mass/Vol] 1.20 mg/dL Normal 0.70-1.20 [facility] Comment on above: Performed By: #### B TSPAT, L501.5200, L500.2500, M100.651, L100.0100, L501.9985 ####[facility] [address] [place], [address] GAP 9 Normal 5-15 [facility] Comment on above: Performed By: #### B TSPAT, L501.5200, L500.2500, M100.651, L100.0100, L501.9985 ####[facility] [address] [place], [address] GFR/1.73 sq M.predicted among non-blacks MDRD (S/P/Bld) [Vol rate/Area] 70 mL/min/{1.73_m2} Normal >60 [facility] Comment on above: Result Comment: mL/m in/1.73m2 CKD-EPI Creatinine Equation (2020) Performed By: #### B TSPAT, L501.5200, L500.2500, M100.651, L100.0100, L501.9985 ####[facility] [address] [place], [address] Glucose [Mass/Vol] 138 mg/dL High 70-99 [facility] Comment on above: Performed By: #### B TSPAT, L501.5200, L500.2500, M100.651, L100.0100, L501.9985 ####[facility] [address] [place], [address] Potassium [Moles/Vol] 4.2 mmol/L Normal 3.3-5.1 [facility] Comment on above: Result Comment: Hemo lysis present, Results??could be affected. ?? Performed By: #### B TSPAT, L501.5200, L500.2500, M100.651, L100.0100, L501.9985 ####[facility] [address] [place], [address] Sodium [Moles/Vol] 143 mmol/L Normal 133-145 [facility] Comment on above: Performed By: #### B TSPAT, L501.5200, L500.2500, M100.651, L100.0100, L501.9985 ####[facility] [address] [place], [address] Urea nitrogen [Mass/Vol] 15 mg/dL Normal 4-19 [facility] Comment on above: Performed By: #### B TSPAT, L501.5200, L500.2500, M100.651, L100.0100, L501.9985 ####[facility] [address] [place], [address] CBC W/Diff, Automatedon 11-0 6-2024 Absolute Lymph 1.06 X10 3/uL Normal 0.83-4.51 [facility] Comment on above: Performed By: #### B TSPAT, L501.5200, L500.2500, M100.651, L100.0100, L501.9985 ####[facility] [address] [place], [address] Absolute Neut 3.1 X10 3/uL Normal 2.0-7.7 [facility] Comment on above: Performed By: #### B TSPAT, L501.5200, L500.2500, M100.651, L100.0100, L501.9985 ####[facility] [address] [place], [address] Basophils/100 WBC (Bld) 0.8 % Normal 0-1 [facility] Comment on above: Performed By: #### B TSPAT, L501.5200, L500.2500, M100.651, L100.0100, L501.9985 ####[facility] [address] [place], [address] Eosinophils/100 WBC (Bld) 1.1 % Normal 0-5 [facility] Comment on above: Performed By: #### B TSPAT, L501.5200, L500.2500, M100.651, L100.0100, L501.9985 ####[facility] [address] [place], [address] Erythrocyte distribution width (RBC) [Ratio] 13.2 % Normal 11.6-14.6 [facility] Comment on above: Performed By: #### B TSPAT, L501.5200, L500.2500, M100.651, L100.0100, L501.9985 ####[facility] [address] [place], [address] Hematocrit (Bld) [Volume fraction] 47.9 % Normal 40-54 [facility] Comment on above: Performed By: #### B TSPAT, L501.5200, L500.2500, M100.651, L100.0100, L501.9985 ####[facility] [address] [place], [address] Hemoglobin (Bld) [Mass/Vol] 15.9 g/dL Normal 13.0-16.5 [facility] Comment on above: Performed By: #### B TSPAT, L501.5200, L500.2500, M100.651, L100.0100, L501.9985 ####[facility] [address] [place], [address] IG% 0.200 Normal 0.0-0.9 [facility] Comment on above: Result Comment: IG% - Immature Granulocytes (promyelocytes, myelocytes and metamyelocytes) > 1% indicates that a LEFT SHIFT is Present. Performed By: #### B TSPAT, L501.5200, L500.2500, M100.651, L100.0100, L501.9985 ####[facility] [address] [place], [address] Lymphocytes/100 WBC (Bld) 22.3 % Normal 19-41 [facility] Comment on above: Performed By: #### B TSPAT, L501.5200, L500.2500, M100.651, L100.0100, L501.9985 ####[facility] [address] [place], [address] MCH (RBC) [Entitic mass] 30.2 pg Normal 27.0-32.0 [facility] Comment on above: Performed By: #### B TSPAT, L501.5200, L500.2500, M100.651, L100.0100, L501.9985 ####[facility] [address] [place], [address] MCHC (RBC) [Mass/Vol] 33.2 g/dL Normal 32-36 [facility] Comment on above: Performed By: #### B TSPAT, L501.5200, L500.2500, M100.651, L100.0100, L501.9985 ####[facility] [address] [place], [address] MCV (RBC) [Entitic vol] 91.1 fL Normal 80-94 [facility] Comment on above: Performed By: #### B TSPAT, L501.5200, L500.2500, M100.651, L100.0100, L501.9985 ####[facility] [address] [place], [address] Monocytes/100 WBC (Bld) 10.3 % High 0-10 [facility] Comment on above: Performed By: #### B TSPAT, L501.5200, L500.2500, M100.651, L100.0100, L501.9985 ####[facility] [address] [place], [address] Neutrophils/100 WBC (Bld) 65.3 % Normal 47-70 [facility] Comment on above: Performed By: #### B TSPAT, L501.5200, L500.2500, M100.651, L100.0100, L501.9985 ####[facility] [address] [place], [address] Nucleated RBC (Bld) [#/Vol] 0 10*3/uL Normal 0-5 [facility] Comment on above: Performed By: #### B TSPAT, L501.5200, L500.2500, M100.651, L100.0100, L501.9985 ####[facility] [address] [place], [address] Platelet mean volume (Bld) [Entitic vol] 10.6 fL Normal 6.2-12.0 [facility] Comment on above: Performed By: #### B TSPAT, L501.5200, L500.2500, M100.651, L100.0100, L501.9985 ####[facility] [address] [place], [address] Platelets (Bld) [#/Vol] 251 10*3/uL Normal 150-450 [facility] Comment on above: Performed By: #### B TSPAT, L501.5200, L500.2500, M100.651, L100.0100, L501.9985 ####[facility] [address] [place], [address] RBC (Bld) [#/Vol] 5.26 10*6/uL Normal 4.6-6.2 [facility] Comment on above: Performed By: #### B TSPAT, L501.5200, L500.2500, M100.651, L100.0100, L501.9985 ####[facility] [address] [place], [address] RDW SD 44.8 fl High 35.1-43.9 [facility] Comment on above: Performed By: #### B TSPAT, L501.5200, L500.2500, M100.651, L100.0100, L501.9985 ####[facility] [address] [place], [address] WBC (Bld) [#/Vol] 4.8 10*3/uL Normal 4.4-11.0 [facility] Comment on above: Performed By: #### B TSPAT, L501.5200, L500.2500, M100.651, L100.0100, L501.9985 ####[facility] [address] [place], [address] Hemoglobin A1con 04-13-2025 HbA1c (Bld) [Mass fraction] 6.3 % High <=5.6 [facility] Comment on above: Result Comment: Norm al < 5.7 % Prediabetic 5.7 - 6.4 % Diabetic >or= 6.5 % Please note range changes. Performed By: #### B TSPAT, L501.5200, L500.2500, M100.651, L100.0100, L501.9985 ####[facility] [address] [place], [address] MR/PATHumble 04-13-2025 MR/PAT.[facility] Medical Records Department [address] [place] [address] PAT - Anesthesia 04/13/25 1605 MR#: [id number] Acct: [id number] Name: ARYAN ROBERTS Rep #: [id number] : 1965 60 From: Navid Monteiro MD PCP: Dr. 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: Anesthesia History - store gift wrap associate Hx Hospitalization Yes: 2 [facility], 10/202304/13/25 09:29 Any Problems With Anesthesia No [...] take am of surgery PONV PONV - store gift wrap associate: PONV - store gift wrap associate Female No 04/13/25 09:29 HX of Motion [...] 02/13/25 08:58 Respiratory Assessment Respiratory Assessment - store gift wrap associate: Respiratory Tract Infection Hx - store gift wrap associate Hx Respiratory Tract Infection No 04/13/25 09:29 STOP Sleep Apnea STOP Sleep Apnea - store gift wrap associate: STOP Sleep Apnea - store gift wrap associate Hx Hypertension Yes: CONTROLLED WITH MEDS 04/13/25 [...] Tobacco Use History Tobacco Use History - store gift wrap associate: Tobacco Use History - store gift wrap associate Tobacco Use Smoking Status Never smoker 04/13/25 09:29 Hx Tobacco Use No 04/13/25 09:29 Years Smoking Packs Smoked per Day Smoking Cessation Date was within the last 15 years Hx Smoking Cessation Date Hx Smoking Cessation No 04/13/25 09:29 Counseling Hematologic Medial History Hematologic Hx - store gift wrap associate: Hematologic Medical Hx - welt rander Hx of Blood Transfusion No 04/13/25 09:29 [...] confused, unrespo /Reproduction History /Reproductive History - store gift wrap associate: /Reproductive Hx- store gift wrap associate Hx Now No 04/13/25 09:29 Gestational Age [...] (06/25/16) Atheroscleroti (more content not included)... Normal [facility] MR/PAT[facility] Medical Records Department [address] [place] [address] PAT - Anesthesia 04/13/25 1007 MR#: [id number] Acct: [id number] Name: ARYAN ROBERTS Rep #: [id number] : 1965 60 From: Navid Monteiro MD PCP: Dr. 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: Anesthesia History - store gift wrap associate Hx Hospitalization Yes: 2 [facility], 10/202304/13/25 09:29 Any Problems With Anesthesia No [...] take am of surgery PONV PONV - store gift wrap associate: PONV - store gift wrap associate Female No 04/13/25 09:29 HX of Motion [...] 02/13/25 08:58 Respiratory Assessment Respiratory Assessment - store gift wrap associate: Respiratory Tract Infection Hx - store gift wrap associate Hx Respiratory Tract Infection No 04/13/25 09:29 STOP Sleep Apnea STOP Sleep Apnea - store gift wrap associate: STOP Sleep Apnea - store gift wrap associate Hx Hypertension Yes: CONTROLLED WITH MEDS 04/13/25 [...] Tobacco Use History Tobacco Use History - store gift wrap associate: Tobacco Use History - store gift wrap associate Tobacco Use Smoking Status Never smoker 04/13/25 09:29 Hx Tobacco Use No 04/13/25 09:29 Years Smoking Packs Smoked per Day Smoking Cessation Date was within the last 15 years Hx Smoking Cessation Date Hx Smoking Cessation No 04/13/25 09:29 Counseling Hematologic Medial History Hematologic Hx - store gift wrap associate: Hematologic Medical Hx - welt rander Hx of Blood Transfusion No 04/13/25 09:29 [...] confused, unrespo /Reproduction History /Reproductive History - store gift wrap associate: /Reproductive Hx- store gift wrap associate Hx Now No 04/13/25 09:29 Gestational Age [...] (06/25/16) Atheroscleroti (more content not included)... Normal [facility] Magnesiumon 04-13-2025 Magnesium [Mass/Vol] 2.4 mg/dL High 1.5-2.2 [place] Comment on above: Performed By: #### B TSPAT, L501.5200, L500.2500, M100.651, L100.0100, L501.9985 ####[facility] [address] [place], [place], [id number] Type AND Screen - PAT ONLYon 04-13-2025 ABO and Rh group Nom (Bld) Blood group B Rh(D) positive Normal [facility] Comment on above: Order Comment: Surge ry Date: 04/27/25Reason for Laboratory Test PRE-[id number], Anterior Cervical Fusion C3-4, C4-5, C5-6 AND C6- Performed By: #### B TSPAT, L501.5200, L500.2500, M100.651, L100.0100, L501.9985 ####[facility] [address] [place], [place], [id number] Bilirubin directOrdered By: Angie Hall on 02-13-2025 Bilirubin.direct [Mass/Vol] 0.16 mg/dL 0.00-0.30 [facility] Bilirubin, totalOrdered By: Angie Hall on 02-13-2025 Bilirubin [Mass/Vol] 0.41 mg/dL 0.00-1.30 [place] Calculated very low density lipoprotein (VLDL) cholesterol measurementOrdered By: Angie Hall on 02-13-2025 Calculated very low density lipoprotein (VLDL) cholesterol measurement 41 mg/dL High 5-40 [facility] Cardiology Visit Reporton Cardiology Visit Report [facility] [address] [place] [address] OFFICE VISIT Date of Service: 02/13/25 MR#: [id number] Acct: [id number] Name: ARYAN ROBERTS Rep #: [id number] : 1965 Provider: ANTONIO cedillo Age/Sex: 59/M [...] coronary artery stent. He was evaluated at [facility] in October 2023 for chest discomfort. 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 Normal [facility] LDL calc ser/plasOrdered By: Angie Hall on 02-13-2025 Cholesterol in LDL [Mass/Vol] 156 mg/dL [facility] Comment on above: Onixeoilnc=929-173 m g/dL & Higher Dqhi=511 mg/dL or greaterFriedwald Equation for LDL-C Laboratory - Chemistry and C hemistry - challengeOrdered By: Angie Hall on 02-13-2025 AST [Catalytic activity/Vol] 26 U/L <38 [facility] Lipid Profileon 02-13-2025 CHOL:HDL 5.76 Normal [facility] Comment on above: Performed By: #### L 500.5320, L500.4100 ####[facility] [address] [place], [place], [id number] Cholesterol [Mass/Vol] 238 mg/dL High <=200 [facility] Comment on above: Result Comment: Chol esterol level, Desirable <200 mg/dL Borderline high cholesterol 200-239 mg/dL High cholesterol >=240 mg/dL Recommendations of the NCEP Adult Treatment Panel for the following risk-cutoff thresholds for the [place] population. Performed By: #### L 500.3400, L500.4100 ####[facility] [address] [place], [address] Cholesterol in HDL [Mass/Vol] 41 mg/dL Normal [facility] Comment on above: Result Comment: Reina onal Cholesterol Education Program (NCEP) guidelines: <40 mg/dL: Low HDL-cholesterol (major risk factor for CHD) >= 60 mg/dL: High HDL-cholesterol (negative risk factor for CHD) HDL-cholesterol is affected by a number of factors, e.g. smoking, exercise, hormones, sex and age. Performed By: #### L 500.3400, L500.4100 ####[facility] [address] [place], [address] Cholesterol in LDL [Mass/Vol] 156 mg/dL Normal [facility] Comment on above: Result Comment: Bord ehwtfq=286-103 mg/dL Higher Wzrw=167 mg/dL or greater [place] Equation for LDL-C Performed By: #### L 500.3400, L500.4100 ####[facility] [address] [place], [address] Cholesterol in VLDL [Mass/Vol] 41 mg/dL High 5-40 [facility] Comment on above: Performed By: #### L 500.3400, L500.4100 ####[facility] [address] [place], [address] Triglyceride [Mass/Vol] 204 mg/dL High [facility] Comment on above: Result Comment: The drugs N-Acetylcysteine and Metamizole may falsely depress this assay. Normal range: <150 mg/dL Borderline High: 150-199 mg/dL High: 200-499 mg/dL Very High: >500 mg/dL Performed By: #### L 500.3400, L500.4100 ####[facility] [address] [place], [address] Liver Profileon 02-13-2025 Albumin [Mass/Vol] 4.5 g/dL Normal 3.5-5.0 [facility] Comment on above: Performed By: #### L 500.3400, L500.4100 ####[facility] [address] [place], [address] ALK PHOS 59 U/L Normal 40-129 [facility] Comment on above: Performed By: #### L 500.3400, L500.4100 ####[facility] [address] [place], [address] ALT [Catalytic activity/Vol] 35 U/L Normal <=46 [facility] Comment on above: Performed By: #### L 500.3400, L500.4100 ####[facility] [address] [place], [address] AST [Catalytic activity/Vol] 26 U/L Normal <=37 [facility] Comment on above: Performed By: #### L 500.3400, L500.4100 ####[facility] [address] [place], [address] Bilirubin [Mass/Vol] 0.41 mg/dL Normal 0.00-1.30 [place] Comment on above: Performed By: #### L 500.3400, L500.4100 ####[facility] [address] [place], [address] Bilirubin.direct [Mass/Vol] 0.16 mg/dL Normal 0.00-0.30 [facility] Comment on above: Performed By: #### L 500.3400, L500.4100 ####[facility] [address] [place], [address] Globulin (S) [Mass/Vol] 3.0 g/dL Normal 2.2-4.2 [facility] Comment on above: Performed By: #### L 500.3400, L500.4100 ####[facility] [address] [place], [place], [address] T PROT 7.5 g/dL Normal 5.9-8.4 [facility] Comment on above: Performed By: #### L 500.3400, L500.4100 ####[facility] [address] [place], [place], [id number] Screening total cholesterol/ high density lipoprotein (HDL) cholesterol ratioOrdered By: Angie Hall on 02-13-2025 Cholesterol.total/Cho lesterol in HDL [Mass ratio] 5.76 {ratio} [facility] Serum globulin measurementOr dered By: Angie Hall on 02-13-2025 Globulin (S) [Mass/Vol] 3.0 g/dL 2.2-4.2 [facility] Serum or plasma alanine castellano otransferase (ALT) measurementOrdered By: Angie Hall on 02-13-2025 ALT [Catalytic activity/Vol] 35 U/L <47 [facility] Serum or plasma albumin brad urement (mass/volume)Ordered By: Angie Hall on 02-13-2025 Albumin [Mass/Vol] 4.5 g/dL 3.5-5.0 [facility] Serum or plasma alkaline camila sphatase measurementOrdered By: Angie Hall on 02-13-2025 ALP [Catalytic activity/Vol] 59 U/L 40-129 [facility] Serum or plasma cholesterol in HDL measurement (mass/volume)Ordered By: Angie Hall on 02-13-2025 Cholesterol in HDL [Mass/Vol] 41 mg/dL >40 [facility] Comment on above: National Cholesterol Education Program (NCEP) guidelines:<40 mg/dL: Low HDL-cholesterol (major risk factor for CHD)>= 60 mg/dL: High HDL-cholesterol (negative risk factor for CHD)HDL-cholesterol is affected by a number of factors, e.g. smoking, exercise, hormones, sex and age. Serum or plasma cholesterol measurement (mass/volume)Ordered By: Angie Hall on 02-13-2025 Cholesterol [Mass/Vol] 238 mg/dL High <201 [facility] Comment on above: Cholesterol level, D esirable <200 mg/dLBorderline high cholesterol 200-239 mg/dLHigh cholesterol >=240 mg/dLRecommendations of the NCEP Adult Treatment Panel for the following risk-cutoff thresholds for the [place] population. Total proteinOrdered By: Tim mary Isabel on 02-13-2025 Protein [Mass/Vol] 7.5 g/dL 5.9-8.4 [facility] Triglycerides measurementOrd ered By: Angie Isabel on 02-13-2025 Triglyceride [Mass/Vol] 204 mg/dL High <199 [facility] Comment on above: The drugs N-Acetylcy steine and Metamizole may falsely depress this assay. Normal range: <150 mg/dLBorderline High: 150-199 mg/dLHigh: 200-499 mg/dLVery High: >500 mg/dL Orthopedic Visit Reporton Orthopedic Visit Report [facility] [address] [place] [address] OFFICE VISIT Date of Service: 02/02/25 MR#: [id number] Acct: [id number] Name: ARYAN ROBERTS Rep #: [id number] : 1965 Provider: Dr. Bowen Nagel MD Age/Sex: 59/M [place] [facility] Status: Signed Intake Vital Signs 01/19/25 16:22 [...] into ascending aorta (06/25/16) Atherosclerotic heart disease [place]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 Hypercholesterolemia Non-STEMI (non-ST [...] cervical ra (more content not included)... Normal [facility] Magnetic resonance imaging r eportOrdered By: Darell Morgan on 01-20-2025 Study report [facility] Imaging Services [address] [place], [place] [id number] Spine Cervical (Routine) MR#: [id number] Acct: [id number] Name: ARYAN ROBERTS Rep #: [id number] : 1965 M 59 From: Jose L Morgan MD PCP: Dr. Cosme Berger MD Status: R EG CLI Study:Spine Cervical (Routine) Date of Exam: 01/18/25 Exam# [id number] Ordering Dr: Pam Nagel MD PROCEDURE: SPINE [...] of disc height. Diffuse disc osteophyte protrusion, xmiw-ndjaptw-lxqk-right uncinate spurring. Minimal facet hypertrophy. Effacement of [...] at C3/4, C4/5 and C5/6. Reading Location: [id number] CC: Dr. Bowen Nagel MD; Dr. Cosme Berger MD ~ Sales Account Leader: Signed [facility] Emergency Department Summary on 01-19-2025 Emergency Department Summary [facility] Medical Records Department [address] [place] [address] Emergency Department Summary 01/19/25 MR#: [id number] Acct: [id number] Name: ARYAN ROBERTS Rep #: [id number] : 1965 59 From: Tru Lewis PCP: [...] has had injections through pain management at [facility] that did help. 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 Normal [facility] Spine Cervical (Routine)on 0 01-18-2025 Spine Cervical (Routine) [facility] Imaging Services [address] [place] [address] Spine Cervical (Routine) MR#: [id number] Acct: [id number] Name: ARYAN ROBERTS Rep #: [id number] : 1965 M 59 From: Darell Morgan MD PCP: Dr. Cosme Berger MD Status: REG CLI Study: Spine Cervical (Routine) Date of Exam: Exam# [id number] Ordering Dr: Bowen Nagel MD PROCEDURE: SPINE [...] of disc height. Diffuse disc osteophyte protrusion, yhik-unzkkrm-hqbq-right uncinate spurring. Minimal facet hypertrophy. Effacement of [...] at C3/4, C4/5 and C5/6. Reading Location: [id number] CC: Dr. Bowen Nagel MD; Dr. Cosme Berger MD Sales Account Leader: Signed Normal [facility] MR/TQJUZHVT0yq 12-14-2024 MR/POSTOPAN2 [facility] Medical Records Department [address] [place] [address] Anesthesia Postop Eval II 12/14/24 0026 MR#: [id number] Acct: [id number] Name: ARYAN ROBERTS Rep #: [id number] : 1965 59 From: Jacob Mckinney MD PCP: Dr. Cosme Berger MD Status:DEP [facility] Y Race: C Location: [facility] Anesthesia Postop Eval I Sum Postop Eval Completion status Anesthesia document: Postop Eval 1 completed: Yes Anesthesia Postop Eval I Summary Anesthesia Postop Eval I Summary: Anesthesia Postop Eval I: Assessment Summary Airway patent yes 12/13/24 11:39 [employer].SJAN Spontaneous unlabored Yes 12/13/24 11:39 [employer].SJAN respirations Mental status Awake,Calm 12/13/24 11:39 [employer].SJAN nausea No 12/13/24 11:39 [employer].SJAN Vomiting No 12/13/24 11:39 [employer].SJAN Anesthesia Postop Eval I: Fluid Summary Crystalloid volume administer 500 12/13/24 11:39 [employer].SJAN (ml) Colloids volume administered ( ml) Blood Product volume administered (ml) Total IV fluid infused 500 12/13/24 11:39 [employer].SJAN Anesthesia Postop Eval I: Summary Notes Anesthesia Complication No 12/13/24 11:39 [employer].SJAN Anesthesia Complication Comment: Post-operative progress note Anesthesia: Postop Eval II Evaluation Mental status: Awake and Calm Pain Level: 1 nausea: No Vomiting: No Complications Anesthesia Complication: No 12/14/24 0027 Date Jacob Mckinney MD Cosigner Signature: Date CC: Signed Normal [facility] Discharge Instructionon Discharge Instruction [facility] Medical Records Department [address] [place] [address] Instructions for Home/Discharge Instructions 12/13/24 1125 MR#: [id number] Acct: [id number] Name: ARYAN ROBERTS Rep #: [id number] : 1965 59 From: Peter Perea MD PCP: Dr. Cosme Berger MD Status:REG [facility] Discharge Instructions Procedure Hernia Diet Discharge Diet: [...] to schedule 2 week follow up appointment. [phone] Test Results: Test results from this visit will be discussed in further detail at your follow-up appointment, if applicable. Discharge Plan Admission Attending Provider: Peter Perea Primary Care Provider: Cosme Berger Instructions Print Language: [place] Discharge Orders/Prescriptions Prescriptions: New oxycodone 5 mg [...] Dr. Cosme Berger MD Signed [facility] MR/POSTOP.[facility] 12-13-2024 MR/POSTOP.[facility] Medical Records Department [address] [place] [address] Anesthesia Postop Eval I 12/13/24 1136 MR#: [id number] Acct: [id number] Name: ARYAN ROBERTS Rep #: [id number] : 1965 59 From: Rhiannon Mcclellan CRNA PCP: Dr. Cosme Berger MD Status:REG SDC Y Race: C Location: [place] [address] Anesthesia: Postop Eval I Current Vital Signs [...] completed: Yes 12/13/24 1139 Date Rhiannon Mcclellan [employer] SUPERVISOR Cosigner Signature: Date CC: Signed Normal [facility] Operative Reporton 5 Operative Report [facility] Medical Records Department [address] [place] [address] Operative Report 12/13/24 1122 MR#: [id number] Acct: [id number] Name: ARYAN ROBERTS Rep #: [id number] : 1965 59 From: Peter Perea MD PCP: Dr. Cosme Berger MD Status:[facility] Location: [place] [address] Operative Report (Standard) Operative Information Date of Procedure: 12/13/24 Pre-Operative Diagnosis: Umbilical hernia Post-Operative Diagnosis: Umbilical hernia Surgery/Procedure Performed: Umbilical hernia repair rail transportation tabeler: No Type of Anesthesia: General/Regional RN Documented [...] MD; Dr. Cosme Berger MD Signed Normal [facility] Orthopedic Visit Reporton Orthopedic Visit Report [facility] [address] [place] [address] OFFICE VISIT Date of Service: 12/07/24 MR#: [id number] Acct: [id number] Name: ARYAN ROBERTS Rep #: [id number] : 1965 Provider: Dr. Bowen Nagel MD Age/Sex: 59/M Location[place] [facility] Status: Signed Intake Vital Signs 10/18/24 11:02 [...] into ascending aorta (06/25/16) Atherosclerotic heart disease [place]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 Hypercholesterolemia Non-STEMI (non-ST [...] by me, Dr. Bowen Nagel MD 12/07/24 0509. Part of today???s visit was documented by [...] 59-year-old (more content not included)... [facility] MR/PAT.Leif 12-05-2024 MR/PAT.[facility] Medical Records Department [address] [place] [address] PAT - Anesthesia 12/05/24 2257 MR#: [id number] Acct: [id number] Name: ARAYN ROBERTS Rep #: [id number] : 1965 59 From: Jacob Mckinney MD PCP: Dr. 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 Hx Hospitalization Yes: [facility], 10/202312/01/24 11:14 Any Problems With Anesthesia [...] take am of surgery PONV PONV - store gift wrap associate: PONV - store gift wrap associate Female No 12/01/24 11:14 HX of Motion [...] 11/30/24 08:22 Respiratory Assessment Respiratory Assessment - store gift wrap associate: Respiratory Tract Infection Hx - store gift wrap associate Hx Respiratory Tract Infection No 12/01/24 11:14 STOP Sleep Apnea STOP Sleep Apnea - store gift wrap associate: STOP Sleep Apnea - store gift wrap associate Hx Hypertension Yes: COTROLLED WITH MEDS 12/01/24 [...] Tobacco Use History Tobacco Use History - store gift wrap associate: Tobacco Use History - store gift wrap associate Tobacco Use Smoking Status Never smoker 12/01/24 11:14 Hx Tobacco Use No 12/01/24 11:14 Years Smoking Packs Smoked per Day Smoking Cessation Date was within the last 15 years Hx Smoking Cessation Date Hx Smoking Cessation No 12/01/24 11:14 Counseling Hematologic Medial History Hematologic Hx - store gift wrap associate: Hematologic Medical Hx - welt rander Hx of Blood Transfusion No 12/01/24 11:14 [...] confused, unrespo /Reproduction History /Reproductive History - store gift wrap associate: /Reproductive Hx- store gift wrap associate Hx Now No 12/01/24 11:14 Gestational Age [...] into ascending aorta (06/25/16) Atherosclerotic heart disease [place]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 Hypercholesterolemia Non-STEMI (non-ST [...] 10/10/24 R (more content not included)... Normal [facility] Surgery Visit Reporton 11-30 Surgery Visit Report [facility] [address] [place] [address] OFFICE VISIT Date of Service: 11/30/24 MR#: [id number] Acct: [id number] Name: ARYAN ROBERTS Rep #: [id number] : 1965 Provider: Dr. Peter matthews MD Age/Sex: 59/M Location: [facility] Status: Signed Intake Vital Signs 10/18/24 [...] into ascending aorta (06/25/16) Atherosclerotic heart disease [place]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 Hypercholesterolemia Non-STEMI (non-ST [...] pressure, hea (more content not included)... Normal [facility] Magnetic resonance imaging r eportOrdered By: Reyes Khan on 11-29-2024 Study report [facility] Imaging Services [address] [place], [place] [address] Spine Lumbar (Routine) MR#: [id number] Acct: [id number] Name: ARYAN ROBERTS Rep #: [id number] : 1965 M 59 From: Savannah Khan MD PCP: Dr. Cosme Berger MD Status: R EG CLI Study:Spine Lumbar (Routine) Date of Exam: 11/26/24 Exam# [id number] Ordering Dr: Sammy Gould PA PROCEDURE: SPINE [...] (Routine) IMPRESSION: Degenerative disc disease. Reading Location: [place] [address] CC: DAVIE Zuñiga; Dr. Cosme Berger MD ~ Sales Account Leader: Signed [facility] Spine Lumbar (Routine)on Spine Lumbar (Routine) [facility] Imaging Services [address] [place] [address] Spine Lumbar (Routine) MR#: [id number] Acct: [id number] Name: ARYAN ROBERTS Rep #: [id number] : 1965 Annabelle 59 From: Reyes pérez MD PCP: Dr. Cosme Berger MD Status: REG CLI Study: Spine Lumbar (Routine) Date of Exam: 11/26/24 Exam# [id number] Ordering Dr: Paola Gould PROCEDURE: SPINE LUMBAR [...] (Routine) IMPRESSION: Degenerative disc disease. Reading Location: [place] [address] CC: DAVIE Zuñiga; Dr. Cosme Berger MD Sales Account Leader: Signed Normal [facility] L/S Spine Min 4 Viewson 10-06 L/S Spine Min 4 Views [facility] Imaging Services [address] [place], [place] [address] L/S Spine Min 4 Views MR#: [id number] Acct: [id number] Name: ARYAN ROBERTS Rep #: [id number] : 1965 M 59 From: Dwayne Bedolla MD PCP: Dr. Cosme Berger MD Status: DEP AMB Study: L/S Spine Min 4 Views Date of Exam: 10/18/24 Exam# [id number] Ordering Dr: Paola Gould PROCEDURE: L/S SPINE [...] Mild spondylotic changes as above. Reading Location: [id number] CC: DAVIE Zuñiga; Dr. Cosme Berger MD Sales Account Leader: Signed Normal [facility] Orthopedic Visit Reporton Orthopedic Visit Report [facility] [address] [place] [address] OFFICE VISIT Date of Service: 10/18/24 MR#: [id number] Acct: [id number] Name: ARYAN ROBERTS Rep #: [id number] : 1965 Provider: DAVIE Zuñiga Age/Sex: 59/M Location[place] [facility] Status: Signed Intake Vital Signs 10/11/24 08:28 [...] into ascending aorta (06/25/16) Atherosclerotic heart disease [place]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 Hypercholesterolemia Non-STEMI (non-ST [...] shooting range recently and 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 Normal [facility] Cardiology Visit Reporton Cardiology Visit Report [facility] [address] [place], [place] [address] OFFICE VISIT Date of Service: 10/14/24 MR#: [id number] Acct: [id number] Name: ARYAN ROBERTS Rep #: [id number] : 1965 Provider: DAVIE Rivera Age/Sex: 59/M Location: [facility] Status: Signed HPI HPI History of [...] coronary artery stent. He was evaluated at [facility] in October 2023 for chest discomfort. [...] s/p ER but something still not right Per Diem Registered Nurse Required: No Is patient in pain?: No [...] ( 06/08 (more content not included)... Normal [facility] 12 Lead EKGon 10-11-2024 12 Lead EKG [facility] Cardiovascular Services [address] [place] [address] 12 Lead EKG 10/11/24 0906 MR#: [id number] Acct: [id number] Name: ARYAN ROBERTS Rep #: [id number] : 1965 59 From: Kal Simeon MD [...] rhythm Normal ECG Confirmed by Kal Simeon ([id number]), newspaper or periodical editor MAHOGANY MONTOYA ([id number]) on 10/14/2024 12:03:21 PM Referred By: TA Confirmed By: Kal Simeon 10/14/24 1203 Date Kal Simeon MD CC: Dr. Cosme Berger MD; Dr. Flaquito Huerta DO Signed Normal [facility] Absolute lymphocyte countOrd ered By: Flaquito Huerta on 10-11-2024 Lymphocytes Auto (Unsp spec) [#/Vol] 1.22 10*3/uL 0.83-4.51 [facility] Absolute neutrophil countOrd ered By: Flaquito Huerta on 10-11-2024 Neutrophils (Bld) [#/Vol] 3.4 10*3/uL 2.0-7.7 [facility] Anion gap in Serum or Plasma Ordered By: Flaquito Huerta on 10-11-2024 Anion gap [Moles/Vol] 13 mmol/L 5-15 [facility] Automated lymphocyte count a s percentage of total leukocytesOrdered By: Flaquito Huerta on 10-11-2024 Lymphocytes/100 WBC Auto (Unsp spec) 23.4 % 19-41 [facility] BUN/creatinine ratioOrdered By: Flaquito Huerta on 10-11-2024 Urea nitrogen/Creatinine [Mass ratio] 11.1 mg/mg 10- [facility] Basic Metabolic Profile (BMP )on 10-11-2024 BUN/CRE 11.1 RATIO Normal - [facility] Comment on above: Performed By: #### L 500.2500, L100.0100, L501.4021 #### [facility] [address] [place], [address] Calcium [Mass/Vol] 10.2 mg/dL Normal 7.6-11.0 [facility] Comment on above: Performed By: #### L 500.2500, L100.0100, L501.4021 #### [facility] [address] [place], [address] Chloride [Moles/Vol] 104 mmol/L Normal 98-108 [place] Comment on above: Performed By: #### L 500.2500, L100.0100, L501.4021 #### [facility] [address] [place], [address] CO2 [Moles/Vol] 21.8 mmol/L Normal 21.0-32.0 [facility] Comment on above: Performed By: #### L 500.2500, L100.0100, L501.4021 #### [facility] [address] [place], [address] Creatinine [Mass/Vol] 1.29 mg/dL High 0.70-1.20 [facility] Comment on above: Performed By: #### L 500.2500, L100.0100, L501.4021 #### [facility] [address] [place], [address] ECRCL 72.48 ml/min Normal 50-250 [facility] Comment on above: Performed By: #### L 500.2500, L100.0100, L501.4021 #### [facility] [address] [place], [address] GAP 13 Normal 5-15 [facility] Comment on above: Performed By: #### L 500.2500, L100.0100, L501.4021 #### [facility] [address] [place], [address] GFR/1.73 sq M.predicted among non-blacks MDRD (S/P/Bld) [Vol rate/Area] 64 mL/min/{1.73_m2} Normal >60 [facility] Comment on above: Result Comment: mL/m in/1.73m2 CKD-EPI Creatinine Equation (2020) Performed By: #### L 500.2500, L100.0100, L501.4021 #### [facility] [address] [place], [address] Glucose [Mass/Vol] 130 mg/dL High 70-99 [facility] Comment on above: Performed By: #### L 500.2500, L100.0100, L501.4021 #### [facility] [address] [place], [address] Potassium [Moles/Vol] 4.2 mmol/L Normal 3.3-5.1 [facility] Comment on above: Performed By: #### L 500.2500, L100.0100, L501.4021 #### [facility] [address] [place], [address] Sodium [Moles/Vol] 138 mmol/L Normal 133-145 [facility] Comment on above: Performed By: #### L 500.2500, L100.0100, L501.4021 #### [facility] [address] [place], [address] Urea nitrogen [Mass/Vol] 14 mg/dL Normal 4-19 [facility] Comment on above: Performed By: #### L 500.2500, L100.0100, L501.4021 #### [facility] [address] [place], [address] Basophil percentageOrdered B y: Flaquito Huerta on 10-11-2024 Basophils/100 WBC (Bld) 1.0 % 0-1 [facility] CBC W/Diff, Automatedon Absolute Lymph 1.22 X10 3/uL Normal 0.83-4.51 [facility] Comment on above: Performed By: #### L 500.2500, L100.0100, L501.4021 #### [facility] [address] [place], [address] Absolute Neut 3.4 X10 3/uL Normal 2.0-7.7 [facility] Comment on above: Performed By: #### L 500.2500, L100.0100, L501.4021 #### [facility] [address] [place], [address] Basophils/100 WBC (Bld) 1.0 % Normal 0-1 [facility] Comment on above: Performed By: #### L 500.2500, L100.0100, L501.4021 #### [facility] [address] [place], [address] Eosinophils/100 WBC (Bld) 1.7 % Normal 0-5 [facility] Comment on above: Performed By: #### L 500.2500, L100.0100, L501.4021 #### [facility] [address] [place], [address] Erythrocyte distribution width (RBC) [Ratio] 13.5 % Normal 11.6-14.6 [facility] Comment on above: Performed By: #### L 500.2500, L100.0100, L501.4021 #### [facility] [address] [place], [address] Hematocrit (Bld) [Volume fraction] 48.2 % Normal 40-54 [facility] Comment on above: Performed By: #### L 500.2500, L100.0100, L501.4021 #### [facility] [address] [place], [address] Hemoglobin (Bld) [Mass/Vol] 17.1 g/dL High 13.0-16.5 [facility] Comment on above: Performed By: #### L 500.2500, L100.0100, L501.4021 #### [facility] [address] [place], [address] IG% 0.400 Normal 0.0-0.9 [facility] Comment on above: Result Comment: IG% - Immature Granulocytes (promyelocytes, myelocytes and metamyelocytes) > 1% indicates that a LEFT SHIFT is Present. Performed By: #### L 500.2500, L100.0100, L501.4021 #### [facility] [address] [place], [address] Lymphocytes/100 WBC (Bld) 23.4 % Normal 19-41 [facility] Comment on above: Performed By: #### L 500.2500, L100.0100, L501.4021 #### [facility] [address] [place], [address] MCH (RBC) [Entitic mass] 31.4 pg Normal 27.0-32.0 [facility] Comment on above: Performed By: #### L 500.2500, L100.0100, L501.4021 #### [facility] [address] [place], [address] MCHC (RBC) [Mass/Vol] 35.5 g/dL Normal 32-36 [facility] Comment on above: Performed By: #### L 500.2500, L100.0100, L501.4021 #### [facility] [facility] [address] [place], [address] MCV (RBC) [Entitic vol] 88.6 fL Normal 80-94 [facility] Comment on above: Performed By: #### L 500.2500, L100.0100, L501.4021 #### [facility] [address] [place], [address] Monocytes/100 WBC (Bld) 8.4 % Normal 0-10 [facility] Comment on above: Performed By: #### L 500.2500, L100.0100, L501.4021 #### [facility] [address] [place], [address] Neutrophils/100 WBC (Bld) 65.1 % Normal 47-70 [facility] Comment on above: Performed By: #### L 500.2500, L100.0100, L501.4021 #### [facility] [address] [place], [address] Nucleated RBC (Bld) [#/Vol] 0 10*3/uL Normal 0-5 [facility] Comment on above: Performed By: #### L 500.2500, L100.0100, L501.4021 #### [facility] [address] [place], [address] Platelet mean volume (Bld) [Entitic vol] 9.7 fL Normal 6.2-12.0 [facility] Comment on above: Performed By: #### L 500.2500, L100.0100, L501.4021 #### [facility] [address] [place], [address] Platelets (Bld) [#/Vol] 267 10*3/uL Normal 150-450 [facility] Comment on above: Performed By: #### L 500.2500, L100.0100, L501.4021 #### [facility] [address] [place], [address] RBC (Bld) [#/Vol] 5.44 10*6/uL Normal 4.6-6.2 [facility] Comment on above: Performed By: #### L 500.2500, L100.0100, L501.4021 #### [facility] [address] [place], [address] RDW SD 43.6 fl Normal 35.1-43.9 [facility] Comment on above: Performed By: #### L 500.2500, L100.0100, L501.4021 #### [facility] [address] [place], [address] WBC (Bld) [#/Vol] 5.2 10*3/uL Normal 4.4-11.0 [facility] Comment on above: Performed By: #### L 500.2500, L100.0100, L501.4021 #### [facility] [address] [place], [address] Carbon dioxide, total [Moles /volume] in Central venous bloodOrdered By: Flaquito Huerta on 10-11-2024 CO2 [Moles/Vol] 21.8 mmol/L 21.0-32.0 [facility] Chest 1 View (Portable)on Chest 1 View (Portable) [facility] Imaging Services [address] [place] [address] Chest 1 View (Portable) MR#: [id number] Acct: [id number] Name: ARYAN ROBERTS Rep #: [id number] : 1965 M 59 From: Colton August MD PCP: Dr. Cosme Berger MD Status: PRE ER Study: Chest 1 View (Portable) Date of Exam: 10/11/24 Exam# [id number] Ordering Dr: Flaquito Huerta DO PROCEDURE: CHEST [...] 2. Additional description as above. Reading Location: [id number] CC: Dr. Cosme Berger MD; Dr. Flaquito Huerta DO Sales Account Leader: Signed Normal [facility] Chloride assayOrdered By: Yaquelin Huerta on 10-11-2024 Chloride [Moles/Vol] 104 mmol/L 98-108 [facility] Summary on 10-11-2024 Emergency Department Summary [facility] Medical Records Department [address] [place] [address] Emergency Department Summary 10/11/24 MR#: [id number] Acct: [id number] Name: ARYAN ROBERTS Rep #: [id number] : 1965 59 From: Flaquito Huerta DO PCP: Dr. 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 Normal [facility] Eosinophil percentageOrdered By: Flaquito Huerta on 10-11-2024 Eosinophils/100 WBC (Bld) 1.7 % 0-5 [facility] Erythrocyte distribution wid th ratioOrdered By: Flaquito Huerta on 10-11-2024 Erythrocyte distribution width (RBC) [Ratio] 13.5 % 11.6-14.6 [facility] Erythrocyte distribution wid th standard deviationOrdered By: Flaquito Huerta on 10-11-2024 Erythrocyte distribution width (RBC) [Ratio] 43.6 fl 35.1-43.9 [facility] Glomerular filtration rate ( GFR) estimation/1.73 sq m using serum, plasma, or whole bOrdered By: Flaquito Huerta on 10-11-2024 GFR/1.73 sq M.predicted among non-blacks MDRD (S/P/Bld) [Vol rate/Area] 64 mL/min/{1.73_m2} >60 [facility] Comment on above: mL/min/1.73m2 CKD-EP I Creatinine Equation (2020) Hematocrit Auto (Bld) [Volum e fraction]Ordered By: Flaquito Huerta on 10-11-2024 Hematocrit (Bld) [Volume fraction] 48.2 % 40-54 [facility] Hemoglobin measurementOrdere d By: Flaquito Huerta on 10-11-2024 Hemoglobin (Bld) [Mass/Vol] 17.1 g/dL High 13.0-16.5 [facility] Immature granulocytes/100 WB C Auto (Bld)Ordered By: Flaquito Huerta on 10-11-2024 Immature granulocytes/100 WBC (Bld) 0.400 % 0.0-0.9 [facility] Comment on above: IG% - Immature Granu locytes (promyelocytes, myelocytes and metamyelocytes) > 1% indicates that a LEFT SHIFT is Present. L499.0042on 10-11-2024 Trop T High Sen Normal <=22 [facility] Comment on above: Result Comment: Canc elled via OM: MD Ordered Performed By: #### L 499.0042 ####[facility] [address] [place], [address] L501.4021on 10-11-2024 Trop T High Sen 11 ng/L Normal <=22 [facility] Comment on above: Performed By: #### L 500.2500, L100.0100, L501.4021 #### [facility] [address] [place], [address] MCV (mean corpuscular volume ) determinationOrdered By: Flaquito Huerta on 10-11-2024 MCV (RBC) [Entitic vol] 88.6 fL 80-94 [facility] Mean corpuscular hemoglobin (MCH) determinationOrdered By: Flaquito Huerta on 10-11-2024 MCH (RBC) [Entitic mass] 31.4 pg 27.0-32.0 [facility] Mean corpuscular hemoglobin concentration (MCHC) determinationOrdered By: Flaquito Huerta on 10-11-2024 MCHC (RBC) [Mass/Vol] 35.5 g/dL 32-36 [facility] Mean platelet volume determi nationOrdered By: Flaquito Huerta on 10-11-2024 Platelet mean volume (Bld) [Entitic vol] 9.7 fL 6.2-12.0 [facility] Monocyte percentageOrdered B y: Flaquito Huerta on 10-11-2024 Monocytes/100 WBC (Bld) 8.4 % 0-10 [facility] Neutrophil percentageOrdered By: Flaquito Huerta on 10-11-2024 Neutrophils/100 WBC (Bld) 65.1 % 47-70 [facility] Nucleated red blood cell per centageOrdered By: Flaquito Huerta on 10-11-2024 Nucleated RBC/100 WBC (Bld) [Ratio] 0 % 0-5 [facility] Platelet countOrdered By: Yaquelin Huerta on 10-11-2024 Platelets (Bld) [#/Vol] 267 10*3/uL 150-450 [facility] Potassium measurement (mass/ volume)Ordered By: Flaquito Huerta on 10-11-2024 Potassium (Unsp spec) [Mass/Vol] 4.2 mmol/L 3.3-5.1 [facility] RBC Auto (Bld) [#/Vol]Ordere d By: Flaquito Huerta on 10-11-2024 RBC (Bld) [#/Vol] 5.44 10*6/uL 4.6-6.2 [facility] Serum creatinine measurement (mass/volume)Ordered By: Flaquito Huerta on 10-11-2024 Creatinine [Mass/Vol] 1.29 mg/dL High 0.70-1.20 [facility] Serum glucose measurement (m ass/volume)Ordered By: Flaquito Huerta on 10-11-2024 Glucose [Mass/Vol] 130 mg/dL High 70-99 [facility] Serum or plasma calcium brad urement (mass/volume)Ordered By: Flaquito Huerta on 10-11-2024 Calcium [Mass/Vol] 10.2 mg/dL 7.6-11.0 [facility] Serum or plasma urea nitroge n measurement (mass/volume)Ordered By: Flaquito Huerta on 10-11-2024 Urea nitrogen [Mass/Vol] 14 mg/dL 4-19 [facility] Sodium levelOrdered By: Jazlyn Huerta on 10-11-2024 Sodium [Moles/Vol] 138 mmol/L 133-145 [facility] Troponin T.cardiac [Mass/vol ume] in Serum or Plasma by High sensitivity methodOrdered By: Flaquito Huerta on 10-11-2024 Troponin T.cardiac High sensitivity method [Mass/Vol] 11 ng/L <22 [facility] White blood cell (WBC) count Ordered By: Flaquito Huerta on 10-11-2024 WBC (Bld) [#/Vol] 5.2 10*3/uL 4.4-11.0 [facility] PSA,Total- Diagn[employer]icon PSA, DIAGNOSTIC 3.06 ng/mL Normal 0.0-4.0 [facility] Comment on above: Result Comment: This test was performed using the TPSA assay method for the [employer] chemistry system. Values obtained with different assay methods cannot be used interchangably. When changing PSA assays in the course of monitoring a patient, additional sequential testing should be carried out to confirm baseline values. Performed By: #### L 501.9940 ####[facility] [address] [place], [place], [id number] RFon 07-10-2022 Rheumatoid Factor <6.0 Normal <=6.0 [facility] ([place]) Comment on above: Result Comment: RF I [...] tests. These results were obtained with the [employer] QUANTA Lite RF IgM KWESI. RF IgM values obtained with different manufacturers' assay methods may not be used interchangeably. The magnitude of the reported IgM levels cannot be correlated to an endpoint titer. Performed By: #### T ESTO, RF, JOSE, LIZA #### [place] [address] #### ESR, URIC, VIDH #### [place] [address] [place], [place] [address] .ANATon 07-09-2022 JOSE Pattern 1 Speckled Normal [facility] ([place]) Comment on above: Result Comment: At [facility], an JOSE titer of less than 160 is not considered suggestive of significant rheumatoid disease. If clinical suspicion is high, suggest repeat testing in 1-2 months. Performed By: #### T ESTO, RF, JOSE, LIZA #### [place] [id number] #### ESR, URIC, VIDH #### [place] [address] [place], [place] [address] JOSE Titer 1 40 Normal [facility] ([place] Comment on above: Performed By: #### T DANIELLE NICHOLS, JOSE, LIZA #### [address] [address] #### ESR, URIC, VIDH #### [place] [address] [place], [place] [address] ANAon 07-09-2022 JOSE See Titer Normal Neg 40 [facility]) Comment on above: Result Comment: JOSE Screen and Titer methodology is an immunofluorescent technique utilizing Hep2 Substrate. Performed By: #### T DANIELLE NICHOLS, JOSE, LIZA #### [address] [address] #### ESR, URIC, VIDH #### [address] [address] XR HIP MINIMUM 2 VIEWS RIGHT on [...] 07/09/2022 3:13:16 PM Ordering Provider: CONSTANTINO BERGMAN On License Of [facility] ([place]) XR SPINE LUMBAR AP/LAT/FLEX/ EXTon 07-09-2022 XR [...] 07/09/2022 3:12:14 PM Ordering Provider: CONSTANTINO Barrios [facility] ([place]) ESRon 07-08-2022 Erythrocyte Sed Rate 4 mm/hr Normal 0-20 [facility] ([place]) Comment on above: Performed By: #### DANIELLE BETTS ANA, LIZA #### [place] [address] #### ESR, URIC, VIDH #### [address] [address] LABORATORYOrdered By: Izabela Love on 07-08-2022 ESR [...] Testosterone Lvl 277.41 ng/dL Normal 86.98-780. 10 [facility] ([place] Comment on above: Result Comment: Norm al Reference Ranges for Females: Female Premenopause Age 21-60 9.01-47.94 ng/dL Female Postmenopause Age 45-89 <7.00-45.62 ng/dL Performed By: #### DANIELLE BETTS JOSE, LIZA #### [place] [address] #### ESR, URIC, VIDH #### [address] [address] URICon 07-08-2022 Uric Acid Lvl 4.2 mg/dL Normal 3.5-7.2 [facility] ([place] Comment on above: Performed By: #### DANIELLE BETTS ANA, LIZA #### [place] [address] #### ESR, URIC, VIDH #### [address] [address] VIDHon 07-08-2022 Vit. D 25-Hydroxy 36.7 ng/mL Normal [facility] ([place] Comment on above: Result Comment: Inte rpretive Values Based on Total 25(OH) Vitamin D: Deficient <20 ng/mL Insufficient 20 - <30 ng/mL Sufficient 30-100 ng/mL Performed By: #### DANIELLE BETTS ANA, LIZA #### [place] [address] #### ESR, URIC, VIDH #### [address] [address] Absolute lymphocyte counton 11-19-2021 Lymphocytes Auto (Unsp spec) [#/Vol] 1.02 10*3/uL 0.83-4.51 [facility] Work Phone: Basophil percentageon 2021 Basophils/100 WBC (Bld) 0.9 % 0-1 [facility] Work Phone: [phone] Bilirubin [Mass/Vol] 0.30 mg/dL 0.20-1.00 [facility] Work Phone: Comment on above: For patients on eltr ombopag therapy, use of Dimension [place] TBIL is not recommended. Chloride [Moles/Vol] 109 mmol/L 98-107 [facility] Work Phone: Cholesterol [Mass/Vol] 182 mg/dL <200 [facility] Work Phone: Comment on above: <200 mg/dL Desirable 200-240 mg/dL Borderline >240 mg/dL High Risk Eosinophils/100 WBC (Bld) 1.5 % 0-5 [facility] Work Phone: Glucose [Mass/Vol] 107 mg/dL 74-106 [facility] Work Phone: Comment on above: Fasting Glucose resu lt from 100 to 125 mg/dL suggests IMPAIRED HOMEOSTASIS per A.D.A. criteria. Neutrophils (Bld) [#/Vol] 3.6 10*3/uL 2.0-7.7 [facility] Work Phone: Neutrophils/100 WBC (Bld) 68.4 % 47-70 [facility] Work Phone: [phone] Potassium [Moles/Vol] 4.0 mmol/L 3.5-5.1 [facility] Work Phone: Protein [Mass/Vol] 7.5 g/dL 6.4-8.2 [facility] Work Phone: Sodium [Moles/Vol] 139 mmol/L 136-145 [facility] Work Phone: Triglyceride [Mass/Vol] 111 mg/dL <199 [facility] Work Phone: Comment on above: The drugs N-Acetylcy steine and Metamizole may falsely depress this assay.Serum Triglycerides Reference Interval Normal <150 mg/dL Borderline high 150 - 199 mg/dL High 200 - 499 mg/dL Very High > or = 500 mg/dL WBC (Bld) [#/Vol] 5.3 10*3/uL 4.4-11.0 [facility] Work Phone: Blood erythrocytes count (nu mber/volume)on 11-19-2021 RBC (Bld) [#/Vol] 4.86 10*6/uL 4.6-6.2 [facility] Work Phone: Blood hemoglobin measurement (mass/volume)on 11-19-2021 Hemoglobin (Bld) [Mass/Vol] 15.4 g/dL 13.0-16.5 [facility] Work Phone: Blood lymphocytes/100 leukoc yteson 11-19-2021 Lymphocytes/100 WBC (Bld) 19.3 % 19-41 [facility] Work Phone: [phone] Blood monocytes/100 leukocyt eson 11-19-2021 Monocytes/100 WBC (Bld) 9.5 % 0-10 [facility] Work Phone: Blood platelet mean volumeon 11-19-2021 Platelet mean volume (Bld) [Entitic vol] 9.7 fL 6.2-12.0 [facility] Work Phone: [phone] Determination of erythrocyte mean corpuscular volume (MCV)on 11-19-2021 MCV (RBC) [Entitic vol] 92.8 fL 80-94 [facility] Work Phone: Erythrocyte sedimentation ra clinton 11-19-2021 ESR (Bld) [Velocity] 22 mm/h 0-20 [facility]: Hematocrit Auto (Bld) [Volum e fraction]on 11-19-2021 Hematocrit (Bld) [Volume fraction] 45.1 % 40-54 [facility] Work Phone: Laboratory - Chemistry and C hemistry - challengeon 11-19-2021 ALP [Catalytic activity/Vol] 61 U/L 45-117 [facility] Work Phone: ALT [Catalytic activity/Vol] 27 U/L 16-61 [facility] Work Phone: CO2 [Moles/Vol] 24.0 mmol/L 21.0-32.0 [facility] Work Phone: Globulin (S) [Mass/Vol] 3.6 g/dL 2.2-4.2 [facility] Work Phone: Urea nitrogen/Creatinine [Mass ratio] 10.6 mg/mg 10-20 [facility] Work Phone: Laboratory - Hematology and Cell countson 11-19-2021 Erythrocyte distribution width (RBC) [Entitic vol] 44.2 fL 35.1-43.9 [facility] Work Phone: Erythrocyte distribution width (RBC) [Ratio] 13.0 % 11.6-14.6 [facility] Work Phone: Immature granulocytes/100 WBC (Bld) 0.400 % 0.0-0.9 [facility] Work Phone: Comment on above: IG% - Immature Granu locytes (promyelocytes, myelocytes and metamyelocytes) > 1% indicates that a LEFT SHIFT is Present. MCH (RBC) [Entitic mass] 31.7 pg 27.0-32.0 [facility] Work Phone: Nucleated RBC/100 WBC (Bld) [Ratio] 0 % 0-5 [facility] Work Phone: MCHC Auto (RBC) [Mass/Vol]on 11-19-2021 MCHC (RBC) [Mass/Vol] 34.1 g/dL 32-36 [facility] Work Phone: No Panel Informationon 11-19 Estimated GFR (MDRD) Amer 66 mL/min >60 [facility] Work Phone: Comment on above: GFR Calc Estimated GFR (MDRD) Non-Af Amer 55 mL/min >60 [facility] Work Phone: Comment on above: Non- GFR Calc Homocysteine 14.8 umol/L 3.2-10.7 [facility] Work Phone: Troponin I High Sensitivity 4 pg/mL 3.0-78.0 [facility] Work Phone: Comment on above: Please Note: New Nneka t Units and Gender Specific Reference Ranges. For more information see Policy Stat Procedure [place] High Sensitivity Troponin (TNIH) and attachments. Platelets bldon 11-19-2021 Platelets (Bld) [#/Vol] 238 10*3/uL 150-450 [facility] Work Phone: Serum or plasma albumin brad urement (mass/volume)on 11-19-2021 Albumin [Mass/Vol] 3.9 g/dL 3.2-5.0 [facility] Work Phone: Serum or plasma albumin/glob ulin mass ratioon 11-19-2021 Albumin/Globulin [Mass ratio] 1.1 {ratio} 0.9-2.4 [facility] Work Phone: Serum or plasma calcium brad urement (mass/volume)on 11-19-2021 Calcium [Mass/Vol] 9.4 mg/dL 8.5-10.1 [facility] Work Phone: Serum or plasma cholesterol in HDL measurement (mass/volume)on 11-19-2021 Cholesterol in HDL [Mass/Vol] 36 mg/dL >40 [facility] Work Phone: Comment on above: The drugs N-Acetylcy steine and Metamizole may falsely depress this assay. Reference Range HDL <40 mg/dL Low HDL Cholesterol HDL >or= 60 mg/dL High HDL Cholesterol Serum or plasma cholesterol in VLDL measurement (mass/volume)on 11-19-2021 Cholesterol in VLDL [Mass/Vol] 22 mg/dL 5-40 [facility] Work Phone: Serum or plasma creatinine m easurement (mass/volume)on 11-19-2021 Creatinine [Mass/Vol] 1.42 mg/dL 0.70-1.30 [facility] Work Phone: Comment on above: The validity of the calculated GFR & GFRAA in patients over 70 years has not been determined. Clinical correlation is essential. Serum or plasma low density lipoprotein (LDL) cholesterol measurement (mass/volume)on 11-19-2021 Cholesterol in LDL [Mass/Vol] 124 mg/dL 0-130 [facility] Work Phone: Serum or plasma urea nitroge n measurement (mass/volume)on 11-19-2021 Urea nitrogen [Mass/Vol] 15 mg/dL 7-18 [facility] Work Phone: Thin prep Papanicolaou smear with manual screeningon 11-19-2021 Thin prep Papanicolaou smear with manual screening 14 U/L 15-37 [facility] Work Phone: Thin prep Papanicolaou smear with manual screening 6 5-15 [facility] Work Phone: Basophil percentageon 2021 Bilirubin [Mass/Vol] 0.30 mg/dL 0.20-1.00 [facility] Work Phone: Comment on above: For patients on eltr ombopag therapy, use of Dimension [place] TBIL is not recommended. Cholesterol [Mass/Vol] 189 mg/dL <200 [facility] Work Phone: Comment on above: <200 mg/dL Desirable 200-240 mg/dL Borderline >240 mg/dL High Risk Protein [Mass/Vol] 7.4 g/dL 6.4-8.2 [facility] Work Phone: Triglyceride [Mass/Vol] 95 mg/dL <199 [facility] Work Phone: Comment on above: The drugs N-Acetylcy steine and Metamizole may falsely depress this assay.Serum Triglycerides Reference Interval Normal <150 mg/dL Borderline high 150 - 199 mg/dL High 200 - 499 mg/dL Very High > or = 500 mg/dL Direct bilirubinon 2 Bilirubin.direct [Mass/Vol] 0.12 mg/dL 0.00-0.30 [facility] Work Phone: Laboratory - Chemistry and C hemistry - challengeon 11-18-2021 ALP [Catalytic activity/Vol] 55 U/L 45-117 [facility] Work Phone: ALT [Catalytic activity/Vol] 27 U/L 16-61 [facility] Work Phone: Globulin (S) [Mass/Vol] 3.5 g/dL 2.2-4.2 [facility] Work Phone: Serum or plasma albumin brad urement (mass/volume)on 11-18-2021 Albumin [Mass/Vol] 3.9 g/dL 3.2-5.0 [facility] Work Phone: Serum or plasma cholesterol in HDL measurement (mass/volume)on 11-18-2021 Cholesterol in HDL [Mass/Vol] 38 mg/dL >40 [facility] Work Phone: Comment on above: The drugs N-Acetylcy steine and Metamizole may falsely depress this assay. Reference Range HDL <40 mg/dL Low HDL Cholesterol HDL >or= 60 mg/dL High HDL Cholesterol Serum or plasma cholesterol in VLDL measurement (mass/volume)on 11-18-2021 Cholesterol in VLDL [Mass/Vol] 19 mg/dL 5-40 [facility] Work Phone: Serum or plasma low density lipoprotein (LDL) cholesterol measurement (mass/volume)on 11-18-2021 Cholesterol in LDL [Mass/Vol] 132 mg/dL 0-130 [facility] Work Phone: Thin prep Papanicolaou smear with manual screeningon 11-18-2021 Thin prep Papanicolaou smear with manual screening 19 U/L 15-37 [facility] Work Phone: BMPon 10-28-2019 Anion gap [Moles/Vol] 7 mmol/L Normal 5-[address] [facility] Comment on above: Order Comment: Campu s: M Performed By: #### L 500.21287, L500.10783 #### [facility] [address] [place] [address] Calcium [Mass/Vol] 9.1 mg/dL Normal 8.5-10.1 [facility] Comment on above: Order Comment: Campu s: M Performed By: #### L 500.50874, L500.64575 #### [facility] [place] [address] Chloride [Moles/Vol] 107 mmol/L Normal 98-107 [facility] Comment on above: Order Comment: Campu s: M Performed By: #### L 500.60555, L500.81713 #### [facility] [place] [address] CO2 [Moles/Vol] 26 mmol/L Normal 21-32 [facility] Comment on above: Order Comment: Campu s: M Performed By: #### L 500.87750, L5.04518 #### [facility] [address] [place] [address] Creatinine [Mass/Vol] 1.030 mg/dL Normal 0.670- 1.17 0 [facility] Comment on above: Order Comment: Campu s: M Result Comment: Ally ents receiving either N-Acetylcysteine (NAC) or Metamizole prior to venipuncture, may have falsely depressed results. Performed By: #### L 500.91546, L5.55359 #### [facility] [address] [place] [address] Glucose [Mass/Vol] 88 mg/dL Normal 70-100 [facility] Comment on above: Order Comment: Campu s: M Result Comment: 70-1 00- Normal Fasting; 100-125 Impaired Fasting; greater than 126 on more than one result- Diabetes. ADA guidelines. Results may be falsely elevated after the administration of Sulfapyridine. Results may be falsely depressed after the administration of Sulfasalazine. Performed By: #### L 500.74416, L5.02156 #### [facility] [address] [place] [address] Potassium [Moles/Vol] 4.0 mmol/L Normal 3.5-5.[address] [facility] Comment on above: Order Comment: Campu s: M Performed By: #### L 500.67472, L5.66204 #### [facility] [address] [place] [address] Sodium [Moles/Vol] 141 mmol/L Normal 136-145 [facility] Comment on above: Order Comment: Campu s: M Performed By: #### L 500.10392, L5.29308 #### [facility] [address] [place] [address] Urea nitrogen [Mass/Vol] 9 mg/dL Normal 7-26 [facility] Comment on above: Order Comment: Campu s: M Performed By: #### L 500.56679, L500.02237 #### [facility] [address] [place] [address] Urea nitrogen/Creatinine [Mass ratio] 9 mg/mg Low 15-24 [facility] Comment on above: Order Comment: Campu s: M Performed By: #### L 500.11756, L500.76207 #### [facility] [address] [place] [address] CBCon 10-28-2019 Erythrocyte distribution width (RBC) [Ratio] 13.3 % Normal 11-14.5 [facility] Comment on above: Order Comment: Campu s: M Performed By: #### L 200.43089 #### [facility] [address] [place] [address] Hematocrit (Bld) [Volume fraction] 47.2 % Normal 41.0-53.0 [facility] Comment on above: Order Comment: Campu s: M Performed By: #### L 200.08462 #### [facility] [address] [place], [place] [address] Hemoglobin (Bld) [Mass/Vol] 16.2 g/dL Normal 13.5-17.5 [facility] Comment on above: Order Comment: Campu s: M Performed By: #### L 200.63340 #### [facility] [address] [place], [place] [address] MCHC (RBC) [Mass/Vol] 34.3 g/dL Normal 32.0-36.[address] [facility] Comment on above: Order Comment: Campu s: M Performed By: #### L 200.20327 #### [facility] [address] [place] [address] MCV (RBC) [Entitic vol] 92.7 fL Normal 80.0-99.0 [facility] Comment on above: Order Comment: Campu s: M Performed By: #### L 200.97260 #### [facility] [address] [place], [place] [address] Nucleated RBC/100 WBC (Bld) [Ratio] 0.0 % Normal Less than 1 [facility] Comment on above: Order Comment: Campu s: M Performed By: #### L 200.85615 #### [facility] [address] [place] [address] Platelet mean volume (Bld) [Entitic vol] 9.6 fL Normal 9.4-12.4 [facility] Comment on above: Order Comment: Campu s: M Performed By: #### L 200.69871 #### [facility] [address] [place] [address] Platelets (Bld) [#/Vol] 199 K/CU MM Normal 150-450 [facility] Comment on above: Order Comment: Campu s: M Performed By: #### L 200.79218 #### [facility] [address] [place] [address] RBC (Bld) [#/Vol] 5.09 M/CU MM Normal 4.50-6.00 [facility] Comment on above: Order Comment: Campu s: M Performed By: #### L 200.00868 #### [facility] [address] [place] [address] WBC (Bld) [#/Vol] 5.1 K/CUMM Normal 4.5-11.0 [facility] Comment on above: Order Comment: Campu s: M Performed By: #### L 200.23371 #### [facility] [address] [place] [address] GFR ESTon 10-28-2019 IF AMER Greater than 60 Normal [facility] Comment on above: Order Comment: Campu s: M Performed By: #### L 500.67483, L500.96386 #### [facility] [address] [place] [address] IF non-AFR AMER Greater than 60 Normal [facility] Comment on above: Order Comment: Campu s: M Performed By: #### L 500.47974, L500.35954 #### [facility] [address] [place] [address] [facility]ROSE 10-28-2019 CONSULTATION-H&P Normal [facility] Patient Name: ARYAN ROBERTS [address] [place] [address] Date of : [address] [place] [address] Unit Number: [id number] CONSULTATION-HandP Patient Status: REG [facility] Attending Doctor: Issa Menard MD Service Date: 10/28/19805 See Addendum History of Present Illness Reason for Consult Epiploic appendagitis History of Present Illness Patient is a pleasant 54-year-old male who had some bright red blood per rectum last summer in [place] and had a CT scan in June [...] as Reported by ARTIE ERICKSON on 10/24/19 1521 Last Action: Reviewed [...] 1524 Last Action: Reviewed on 10/28/19722 by MARILYNN [...] Aryan Deleon MD Verified/Reviewed by 10/28/19 0842 [facility] Operative Report [facility] OR.OPRPT [facility] Patient Name: ARYAN ROBERTS [address] Date of : [address] [place] [address] Unit Number: [id number] Operative Report Patient Status: REG [facility] Attending Doctor: Issa Menard MD Service Date: [...] to discharge home Anesthesia: [General Endo Zachariah/danika] resident care assistant: Fetty Estimated Blood Loss: [20 cc] [...] permission to talk to [significant other (Suzie [phone] whom I called at the end of [...] any significant abnormalities. Under direct vision a pxvgss-li-jbbef 0 PDS was placed in the right [...] Menard MD Verified/Reviewed by 10/28/19 1709 Normal [facility] Operative Report Normal [facility] OR.OPRPT [facility] Patient Name: ARYAN ROBERTS [employer] [address] Date of : [address] [place], [place] [address] Unit Number: [id number] Operative Report Patient Status: REG [place] Attending [...] The patient had the secured a 20 Malaysian coud catheter was placed and there was [...] Aryan Deleon MD Verified/Reviewed by 10/28/19 0845 [facility] [place] SURGon 10-27-2019 SURG -------- -------- Patient: [...] and/or minor grammatical errors may exist. -------- [facility] NAME: ARYAN ROBERTS [facility] UNIT#: [id number] LOC: [facility] [employer] Salesperson: Jemma Doherty M.D. [facility] [id number] ROOM/BED: [facility] : 67 AGE/SEX: 54/M ORD.Issa Wolfe MD END OF REPORT Normal [facility] [place] CT ABD/PELV W ORALANDIV CONT [facility] [[email or web address] 10-17-2019 CT ABD/PELV W ORALANDIV CONTRAST CT ABD/PELV W ORAL&IV CONTRAST Ordering Physician: Issa Menard MD 10/17/2019 2:[address] ABDOMEN AND PELVIS WITH CONTRAST Clinical Statement: Abdominal pain, rectal bleeding, patient indicates left lower quadrant and right flank pain Comparison: CT abdomen and pelvis June 08, 2019 from [facility] FINDINGS: Following the uneventful administration of [...] RICO M.D. Signed By: CLAUDIA RICO M.D. [facility] MRI LUMBAR SPINE WO IVCONon 08-13-2017 MRI LUMBAR SPINE WO IVCON * * *Final Report* * *DATE OF EXAM: Aug 13 2017 11:27AM [facility] 0303 - MRI LUMBAR SPINE WO IVCON [...] and bilateral neural foramina.IMPRESSION: Unremarkable lumbar spine MRI.Sales Account Leader: NIKOS Transcribe Date/Time: Aug 13 2017 11:40ADictated by : NURYS JACK MDThisera examination was interpreted and the report reviewed and electronically signed by: NURYS JACK MD on Aug 13 2017 11:42AM [id number] Normal [facility] PROGRESSon 08-13-2017 PROGRESS HNO ID: [id number] thor: Amy (Rt) Jennyfer Sandhu: (none)Author Type: TechnicianType: Progress NotesFiled: 08/13/2017 11:53 AMNote Text: Radiology Service Progress NotePATIENT NAME: Aryan PollardN: [id number] OF SERVICE: August 13, 2017TIME: 11:53 AMPATIENT IDENTITY VERIFICATION COMPLETED USING TWO (2) METHODS: Patientconfirmed name verbally and Date of .PATIENT GENDER DATA: MalePATIENT RELEVANT IMPLANT DATA REVIEWED: Not ApplicableRADIOLOGY DEPARTMENT: General X-ray: Exam(s) Completed: Spine X-Ray(s):Thoracic and Lumbar AP / LAT / L5-S1 / FLEX-EXTPERIPHERAL IV DATA: Not applicableSIGNED BY: RT [facility] 11:53 AM [facility] PROGRESS HNO ID: [id number] thor: Lucy Marks RtService: (none)Author Type: (none)Type: Progress NotesFiled: 08/13/2017 11:36 AMNote Text: Radiology Service Progress NotePATIENT NAME: Aryan RobertsMRN: [id number] OF SERVICE: August 13, 2017TIME: 11:36 AMPATIENT IDENTITY VERIFICATION COMPLETED USING TWO (2) METHODS: Patientconfirmed name verbally and Date of .PATIENT GENDER DATA: MalePATIENT RELEVANT IMPLANT DATA REVIEWED: YesRADIOLOGY DEPARTMENT: MR; Exam(s) Completed: Spine: Lumbar spinePERIPHERAL IV DATA: Not applicableSIGNED BY: Lucy Selina RtMarch 2017 11:36 AM [facility] XR LUMBAR 4V AP/LAT/ FLEX/EX Ton [...] SPINE. DEGENERATIVE FACET DISEASE IN THE LUMBAR SPINE.Sales Account Leader: PSCDeonna Transcribe Date/Time: Aug 13 2017 1:18PDictated by : JEAN LEROY MDThis examination was interpreted and the report reviewed and electronically signed by: JEAN LEROY MD on Aug 13 2017 1:21PM [id number] [facility] XR THORACIC 3V AP/LAT/SWIMME RSon 08-13-2017 [...] SPINE. DEGENERATIVE FACET DISEASE IN THE LUMBAR SPINE.Sales Account Leader: PSCB Transcribe Date/Time: Aug 13 2017 1:18PDictated by : JEAN LEROY MDThis examination was interpreted and the report reviewed and electronically signed by: JEAN LEROY MD on Aug 13 2017 1:21PM [id number] Normal [facility] CNOVon 08-05-2017 CNOV Office Visit (SPNMMN) ----ARYAN ROBERTS ([id number]) 1965 MDate Time Provider Department08/05/17 9:00 AM MAEVE MEZA [facility] During your visit today, we recorded the [...] visit? No.Frannie Meza MD 08/07/2017 10:31 AM Signed[facility] SPINE CENTERDakim Roberts is a [...] s/p cardiac stent placement in 06/2016 and [id number]. he is following withcardiology. 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 Uidg-ep-yorc time was 40 minutes.Maeve Meza, [facility]:Aryan Nina MD[address] [place] [address]Cwrza: [phone]: [phone] Provider: AIDAN EDMONDSON [[id number]]Allergies As of Date: 08/05/2017 Noted Allergy ReactionVICODIN (HYDROCODONE-ACETAMINOPHE* 9 - ItchingDate Reviewed: 08/05/2017Reviewed by: Frannie Sr Ma - Fully AssessedReason for Visit: New Patient [172]Primary Visit Diagnosis:Lumbar spondylosis [M47.816] Other Visit Diagnoses:Sciatica of right side [M54.31] DDD (degenerative disc disease), lumbar [M51.36] Arthralgia, unspecified joint [M25.50]Order(s):XR LUMBAR MOTION 4V AP/LAT/ FLEX/EXT [[id number]] Order #: [id number] FUTURE XR THORACIC GENERAL 3V AP/LAT/SWIMMERS [[id number]] Order #: [id number] FUTURE MRI LUMBAR SPINE WO IVCON [[id number]] Order #: [id number] FUTUREPrescriptions as of 08/05/2017 Sig: ADALIMUMAB 40 [...] (around 10/03/2017).Follow-up and Disposition History RecordedEncounter Number: [id number] Status:Closed by MAEVE MEZA MD on 08/07/17 Normal [facility] PROGRESSon 08-05-2017 PROGRESS HNO ID: [id number] thor: Maeve Burk: (none)Author Type: PhysicianType: Progress NotesFiled: 08/07/2017 10:31 AMNote Text:[facility] SPINE CENTERDakim Roberts is a [...] position. s/p cardiac stent placement in 06/2016 [id number]. he is following with cardiology. roberta Wolf [...] Date- CAD (coronary artery disease)- HTN (hypertension)- NV (myocardial infarction) (HCC)The patient's surgical history was [...] spent counseling and/or coordinating carefor the patient. Hnkg-xh-sbon time was 40 minutes.Maeve Meza, [facility]:Aryan Nina MD[address] [place] [address]Fwsov: [phone]: [phone] [facility] CNCOon 07-21-2017 CNCO Letter Kosta dee D.O.Department of Rheumatic and Immunologic Disease / [id number] [place], [place], [address]Vltnrw: [phone]: [phone]: [phone] 2017Dakim Roberts[address] [place], [place] [address]WJZ: 1965MRN: [id number] Aryan:You will need to have blood work [...] ask to have results faxed to the [facility]mult[facility].Sincerely,Aidan Edmondson D.O.(Electronically Signed to [employer]) Normal [facility] C-Reactive Proteinon 018 C reactive protein (CRP) 0.3 mg/dL Normal <0.9 [facility] Comment on above: Performed By: #### C BCDIF, WSR, CMP, CRP ####[facility] [place], [place] [phone] CBC and Differentialon 07-10 Abs Baso 0.03 k/uL Normal <0.11 [facility] Comment on above: Performed By: #### C BCDIF, WSR, CMP, CRP ####[place] [address] [address] [place] [phone] Abs Reno 0.41 k/uL Normal <0.87 [facility] Comment on above: Performed By: #### C BCDIF, WSR, CMP, CRP ####[place] [address] [address] AveClevelScott [address] [phone] Abs Neut 3.91 k/uL Normal 1.45-7.50 [facility] Comment on above: Performed By: #### C BCDIF, WSR, CMP, CRP ####[place] [address] [address] [place] [phone] Basophils/100 WBC Auto (Bld) 0.6 % Normal [facility] Comment on above: Performed By: #### C BCDIF, WSR, CMP, CRP ####[place] [address] [address] [phone] DTYPE Auto Diff Normal [facility] Comment on above: Performed By: #### C BCDIF, WSR, CMP, CRP ####[place] [address] [address] [place] [phone] Eosinophils 0.07 10*3/uL Normal <0.46 [facility] Comment on above: Performed By: #### C BCDIF, WSR, CMP, CRP ####[place] [address] [address] [place] [phone] Eosinophils/100 leukocytes 1.3 % Normal [facility] Comment on above: Performed By: #### C BCDIF, WSR, CMP, CRP ####[place] [address] [address] [phone] Erythrocyte distribution width Auto Ratio (RBC) 13.0 % Normal 11.5-15.0 [facility] Comment on above: Performed By: #### C BCDIF, WSR, CMP, CRP ####[place] [address] AveClevelandShane [place] [phone] Erythrocytes (RBC) 5.51 10*6/uL Normal 4.20-6.00 [facility] Comment on above: Performed By: #### C BCDIF, WSR, CMP, CRP ####[place] [address] [address] [phone] Erythrocytes (RBC) 0.0 /100 WBC Normal 0 [facility] Comment on above: Performed By: #### C BCDIF, WSR, CMP, CRP ####[place] [address] [address]Clevel[address] [place] [phone] Erythrocytes (RBC) 10*6/uL Normal <0.01 [facility] Comment on above: Performed By: #### C BCDIF, WSR, CMP, CRP ####[place] [address] [address]level[address] [place] [phone] Hematocrit (HCT) 50.6 % Normal 39.0-51.0 [facility] Comment on above: Performed By: #### C BCDIF, WSR, CMP, CRP ####[place] [address] [address] [place] [phone] Hemoglobin mass conc (Bld) 16.8 g/dL Normal 13.0-17.0 [facility] Comment on above: Performed By: #### C BCDIF, WSR, CMP, CRP ####[place] [address] AveClevelandShane [place] [phone] Lymphocytes 0.97 10*3/uL Low 1.00-4.00 [facility] Comment on above: Performed By: #### C BCDIF, WSR, CMP, CRP ####[place] [address] [address]leveland[address] [place] [phone] Lymphocytes/100 leukocytes 18.0 % Normal [facility] Comment on above: Performed By: #### C BCDIF, WSR, CMP, CRP ####[place] [address]CM[address] [place] [phone] MCH 30.5 pG Normal 26.0-34.0 [facility] Comment on above: Performed By: #### C BCDIF, WSR, CMP, CRP ####[place] [address] [address] [place] [phone] MCHC mass conc (RBC) 33.2 g/dL Normal 30.5-36.0 [facility] Comment on above: Performed By: #### C BCDIF, WSR, CMP, CRP ####[place] [address] [address] [place] [phone] MCV 91.8 fL Normal 80.0-100.0 [facility] Comment on above: Performed By: #### C BCDIF, WSR, CMP, CRP ####[place] [address] [address] [place] [phone] Monocytes/100 leukocytes 7.6 % Normal [facility] Comment on above: Performed By: #### C BCDIF, WSR, CMP, CRP ####[place] [address] [address] [place] [phone] Neutrophils/100 WBC Auto (Bld) 72.5 % Normal [facility] Comment on above: Performed By: #### C BCDIF, WSR, CMP, CRP ####[place] [address] [address] [place] [phone] Platelet mean volume (PMV) 10.0 fL Normal 9.0-12.7 [facility] Comment on above: Performed By: #### C BCDIF, WSR, CMP, CRP ####[place] [address] [address] [place] [phone] Platelets 209 10*3/uL Normal 150-400 [facility] Comment on above: Performed By: #### C BCDIF, WSR, CMP, CRP ####[place] [address]Clevel[address] [place] [phone] WBC (Leukocytes) 5.40 10*3/uL Normal 3.70-11.00 [facility] Comment on above: Performed By: #### C BCDIF, WSR, CMP, CRP ####[place] [address] [address] [place] [phone] Comp Metabolic Panelon 07-10 Alanine aminotransferase (ALT) 27 U/L Normal 10-54 [facility] Comment on above: Performed By: #### C BCDIF, WSR, CMP, CRP ####[place] [address] [address] [place] [phone] Albumin 4.7 g/dL Normal 3.9-4.9 [facility] Comment on above: Performed By: #### C BCDIF, WSR, CMP, CRP ####[place] [address] [address] [place] [phone] Alkaline phosphatase (ALP) 68 U/L Normal 36-108 [facility] Comment on above: Performed By: #### C BCDIF, WSR, CMP, CRP ####[place] [address] [address] [place] [phone] Anion gap 13 mmol/L Normal 9-18 [facility] Comment on above: Performed By: #### C BCDIF, WSR, CMP, CRP ####[place] [address] [address] [place] [phone] Aspartate aminotransferase (AST) 17 U/L Normal 14-40 [facility] Comment on above: Performed By: #### C BCDIF, WSR, CMP, CRP ####[place] [address] [address] [place] [phone] Bilirubin (total) 0.5 mg/dL Normal 0.2-1.3 [facility] Comment on above: Performed By: #### C BCDIF, WSR, CMP, CRP ####[place] [address] [address]CPat[address] [place] [phone] Calcium 9.8 mg/dL Normal 8.5-10.2 [facility] Comment on above: Performed By: #### C BCDIF, WSR, CMP, CRP ####[place] [address] [address] [place] [phone] Chloride 105 mmol/L Normal 97-105 [facility] Comment on above: Performed By: #### C BCDIF, WSR, CMP, CRP ####[place] [address] [address] [place] [phone] CO2 22 mmol/L Normal 22-30 [facility] Comment on above: Performed By: #### C BCDIF, WSR, CMP, CRP ####[place] [address] [address] [place] [phone] Creatinine 1.06 mg/dL Normal 0.73-1.22 [facility] Comment on above: Performed By: #### C BCDIF, WSR, CMP, CRP ####[place] [address] [address] [place] [phone] eGFR (non-black) mL/min/{1.73_m2} Normal Cl [facility] Comment on above: Performed By: #### C BCDIF, WSR, CMP, CRP ####[place] [address] [address] [place] [phone] Result Comment: eGFR (Estimated GFR) Units of [...] Glucose mass conc 95 mg/dL Normal 74-99 [facility] Comment on above: Result Comment: The [place] Diabetes Association (ADA) provides guidance for cutoff [...] Standards of Medical Care in Diabetes 2016, [place] [employer] Association. Diabetes Care. 2016.39(Suppl 1). Performed By: #### C BCDIF, WSR, CMP, CRP ####[place] [phone] Potassium molar conc 4.3 mmol/L Normal 3.7-5.1 [facility] Comment on above: Performed By: #### C BCDIF, WSR, CMP, CRP ####[place] [phone] Protein 8.0 g/dL Normal 6.3-8.0 [facility] Comment on above: Performed By: #### C BCDIF, WSR, CMP, CRP ####[place] [address] [place] [phone] Sodium 140 mmol/L Normal 136-144 [facility] Comment on above: Performed By: #### C BCDIF, WSR, CMP, CRP ####[place] [phone] Urea nitrogen 12 mg/dL Normal 9-24 [facility] Comment on above: Performed By: #### C BCDIF, WSR, CMP, CRP ####[address] hospitaland, [place] [phone] PROGRESSon 07-10-2017 PROGRESS HNO ID: [id number] thor: Lisa Schroeder (Man) Vanessa Devlin: (none)Author [...] by pt, observed.Electronically Signed By: MAN Landers [facility] PROGRESS HNO ID: [id number] thor: Aidan Barr: (none)Author Type: PhysicianType: Progress NotesFiled: 07/10/2017 1:22 PMNote Text:?[facility] ORTHOPAEDIC AND RHEUMATOLOGIC INSTITUTEDEPARTMENT OF RHEUMATIC AND [...] Date- CAD (coronary artery disease)- HTN (hypertension)- NV (myocardial infarction)PSHx:PAST SURGICAL HISTORYProcedure Laterality Date- ARTHROSCOPY [...] kg (215 lb 3.2 oz) BMI 33.88 kg/w0Ukoyvxd: Looks well, NAD, A AND Ox3.HEENT: PERRLA [...] squeeze.Able to make full fist bilaterally, although line closer strength decreased. Knees: No effusion, no tenderness, [...] outlined in orders.Aidan Edmondson D.O.Rheumatology Staff Normal [facility] Sed Rate Westergrenon 2017 Sed Rate Westergren 5 mm/hr Normal 0-15 [facility] Comment on above: Performed By: #### C BCDIF, WSR, CMP, CRP ####[facility] [address] [place], [place] [phone] C-Reactive Proteinon 017 C reactive protein (CRP) 0.4 mg/dL Normal <0.9 [facility] Comment on above: Performed By: #### C BCDIF, WSR, CRP, RF, URIC, CMP, HREMOP, INFTBG, CCP ####[facility] [address] [place], [place] [phone] CBC and Differentialon 05-05 Abs Baso 0.04 k/uL Normal <0.11 [facility] Comment on above: Performed By: #### C BCDIF, WSR, CRP, RF, URIC, CMP, HREMOP, INFTBG, CCP ####[place] [address] [address] [place] [phone] Abs Reno 0.54 k/uL Normal <0.87 [facility] Comment on above: Performed By: #### C BCDIF, WSR, CRP, RF, URIC, CMP, HREMOP, INFTBG, CCP ####[phone] Abs Neut 4.24 k/uL Normal 1.45-7.50 [facility] Comment on above: Performed By: #### C BCDIF, WSR, CRP, RF, URIC, CMP, HREMOP, INFTBG, CCP ####[place] [phone] Basophils/100 WBC Auto (Bld) 0.7 % Normal [facility] Comment on above: Performed By: #### C BCDIF, WSR, CRP, RF, URIC, CMP, HREMOP, INFTBG, CCP ####[place] [phone] DTYPE Auto Diff Normal [facility] Comment on above: Performed By: #### C BCDIF, WSR, CRP, RF, URIC, CMP, HREMOP, INFTBG, CCP ####[place] [phone] Eosinophils 0.10 10*3/uL Normal <0.46 [facility] Comment on above: Performed By: #### C BCDIF, WSR, CRP, RF, URIC, CMP, HREMOP, INFTBG, CCP ####[place] [address] [address] [place] [phone] Eosinophils/100 leukocytes 1.7 % Normal [facility] Comment on above: Performed By: #### C BCDIF, WSR, CRP, RF, URIC, CMP, HREMOP, INFTBG, CCP ####[place] [address] [address] [place] [phone] Erythrocyte distribution width Auto Ratio (RBC) 13.3 % Normal 11.5-15.0 [facility] Comment on above: Performed By: #### C BCDIF, WSR, CRP, RF, URIC, CMP, HREMOP, INFTBG, CCP ####[place] [address] [address] [place] [phone] Erythrocytes (RBC) 10*6/uL Normal <0.01 [facility] Comment on above: Performed By: #### C BCDIF, WSR, CRP, RF, URIC, CMP, HREMOP, INFTBG, CCP ####[place] [address] [address] [place] [phone] Erythrocytes (RBC) 0.0 /100 WBC Normal 0 [facility] Comment on above: Performed By: #### C BCDIF, WSR, CRP, RF, URIC, CMP, HREMOP, INFTBG, CCP ####[place] [address] [address] [place] [phone] Erythrocytes (RBC) 5.19 10*6/uL Normal 4.20-6.00 [facility] Comment on above: Performed By: #### C BCDIF, WSR, CRP, RF, URIC, CMP, HREMOP, INFTBG, CCP ####[place] [address] [address] [place] [phone] Hematocrit (HCT) 48.7 % Normal 39.0-51.0 [facility] Comment on above: Performed By: #### C BCDIF, WSR, CRP, RF, URIC, CMP, HREMOP, INFTBG, CCP ####[place] [address] [address] AveCSaint [place], [place] [phone] Hemoglobin mass conc (Bld) 16.5 g/dL Normal 13.0-17.0 [facility] Comment on above: Performed By: #### C BCDIF, WSR, CRP, RF, URIC, CMP, HREMOP, INFTBG, CCP ####[place] [phone] Lymphocytes 1.00 10*3/uL Normal 1.00-4.00 [facility] Comment on above: Performed By: #### C BCDIF, WSR, CRP, RF, URIC, CMP, HREMOP, INFTBG, CCP ####[place] [phone] Lymphocytes/100 leukocytes 16.9 % Normal [facility] Comment on above: Performed By: #### C BCDIF, WSR, CRP, RF, URIC, CMP, HREMOP, INFTBG, CCP ####[place] [phone] MCH 31.8 pG Normal 26.0-34.0 [facility] Comment on above: Performed By: #### C BCDIF, WSR, CRP, RF, URIC, CMP, HREMOP, INFTBG, CCP ####[address] [phone] MCHC mass conc (RBC) 33.9 g/dL Normal 30.5-36.0 [facility] Comment on above: Performed By: #### C BCDIF, WSR, CRP, RF, URIC, CMP, HREMOP, INFTBG, CCP ####[address] [phone] MCV 93.8 fL Normal 80.0-100.0 [facility] Comment on above: Performed By: #### C BCDIF, WSR, CRP, RF, URIC, CMP, HREMOP, INFTBG, CCP ####[place] [phone] Monocytes/100 leukocytes 9.1 % Normal [facility] Comment on above: Performed By: #### C BCDIF, WSR, CRP, RF, URIC, CMP, HREMOP, INFTBG, CCP ####[place] [address] [address], [place] [phone] Neutrophils/100 WBC Auto (Bld) 71.6 % Normal [facility] Comment on above: Performed By: #### C BCDIF, WSR, CRP, RF, URIC, CMP, HREMOP, INFTBG, CCP ####[place] [address] [address], [place] [phone] Platelet mean volume (PMV) 10.2 fL Normal 9.0-12.7 [facility] Comment on above: Performed By: #### C BCDIF, WSR, CRP, RF, URIC, CMP, HREMOP, INFTBG, CCP ####[address], [place] [phone] Platelets 209 10*3/uL Normal 150-400 [facility] Comment on above: Performed By: #### C BCDIF, WSR, CRP, RF, URIC, CMP, HREMOP, INFTBG, CCP ####[place] [address] [address], [place] [phone] WBC (Leukocytes) 5.93 10*3/uL Normal 3.70-11.00 [facility] Comment on above: Performed By: #### C BCDIF, WSR, CRP, RF, URIC, CMP, HREMOP, INFTBG, CCP ####[place] [address] [address], [place] [phone] CCP Antibody, IgGon 05-05- 17 CCP Antibody, IgG <15 Normal <20 [facility] Comment on above: Result Comment: < 20 units: Xeamehsk51-75 units: Weak Jssgtosa92-68 units: Moderate Positive> 60 units: Strong Positive Performed By: #### C BCDIF, WSR, CRP, RF, URIC, CMP, HREMOP, INFTBG, CCP ####[facility] [address] [place], [place] [phone] CNOVon 05-05-2017 CNOV Office Visit (RHEUMN) ----ARYAN ROBERTS ([id number]) 1965 MDate Time Provider Wujzairdyu02/28/17 12:40 PM AIDAN EDMONDSON RHEUMDiana During your visit today, we recorded the following information about you: Temperature Pulse Blood pressure Weight 98.2 degrees 80/minute 141/85 98.2 kg Height 1.698 Alicia Edmondson DO 05/07/2017 2:12 PM Signed?[facility] ORTHOPAEDIC ANDamp; RHEUMATOLOGIC INSTITUTEDEPARTMENT OF RHEUMATIC AND [...] rotator cuff.In Jun 2016 he sustained an NV and underwent PCI. He was stented again in November2016.He was evaluated by Rheumatology at [facility] and was diagnosed withseronegative RA. He has [...] Date- CAD (coronary artery disease)- HTN (hypertension)- NV (myocardial infarction)PSHx:PAST SURGICAL HISTORYProcedure Laterality Date- ARTHROSCOPY [...] kg (216 lb 6.4 oz) BMI 34.06 kg/f5Qtmixar: Looks well, NAD, A ANDamp; Ox3.HEENT: EOMs [...] 1.00 - 4.00 k/uL 1.00Mono% % 9.1Abs [place] ANDlt;0.87 k/uL 0.54Eosin% % 1.7Abs Eosin ANDlt;0.46 [...] [M54.41, G89.29]Order(s):URIC ACID BLOOD [SQURIC] Order #: [id number] FUTURE CBC + DIFF [SQCBCDIF] Order #: [id number] FUTURE COMP METABOLIC PANEL [SQCMP] Order #: [id number] FUTURE RHEUMATOID FACTOR BL [SQRF] Order #: [id number] FUTURE CCP ANTIBODY IGG [SQCCP] Order #: [id number] FUTURE XR HAND GENERAL 3V PA/LAT/OBL LT [6829048] Order #: [id number] FUTURE XR HAND GENERAL 3V PA/LAT/OBL RT [9160015] Order #: [id number] FUTURE CONSULT TO SPINE CENTER [19990907] Order #: [id number]: 1 C-REACTIVE PROTEIN (CRP) [SQCRP] Order #: [id number] FUTURE SED RATE WESTERGREN [SQWSR] Order #: [id number] FUTURE HEP REMOTE PANEL BL [SQHREMOP] Order #: [id number] FUTURE BLOOD TB SCREEN [SQINFTBG] Order #: [id number] FUTURE diclofenac sodium (VOLTAREN) 1 % topical [...] Status:Closed by AIDAN EDMONDSON on 05/07/17 Normal [facility] Comp Metabolic Panelon 05-05 Alanine aminotransferase (ALT) 35 U/L Normal 10-54 [facility] Comment on above: Performed By: #### C BCDIF, WSR, CRP, RF, URIC, CMP, HREMOP, INFTBG, CCP ####[address] [phone] Albumin 4.5 g/dL Normal 3.9-4.9 [facility] Comment on above: Performed By: #### C BCDIF, WSR, CRP, RF, URIC, CMP, HREMOP, INFTBG, CCP ####[facility] [address] [place], [place] [phone] Alkaline phosphatase (ALP) 68 U/L Normal 36-108 [facility] Comment on above: Performed By: #### C BCDIF, WSR, CRP, RF, URIC, CMP, HREMOP, INFTBG, CCP ####[facility] [place], [place] [phone] Anion gap 14 mmol/L Normal 9-18 [facility] Comment on above: Performed By: #### C BCDIF, WSR, CRP, RF, URIC, CMP, HREMOP, INFTBG, CCP ####[place] [address] [address] [place] [phone] Aspartate aminotransferase (AST) 23 U/L Normal 14-40 [facility] Comment on above: Performed By: #### C BCDIF, WSR, CRP, RF, URIC, CMP, HREMOP, INFTBG, CCP ####[place] [address] [address] [place] [phone] Bilirubin (total) 0.2 mg/dL Normal 0.2-1.3 [facility] Comment on above: Performed By: #### C BCDIF, WSR, CRP, RF, URIC, CMP, HREMOP, INFTBG, CCP ####[address] [phone] Calcium 9.6 mg/dL Normal 8.5-10.2 [facility] Comment on above: Performed By: #### C BCDIF, WSR, CRP, RF, URIC, CMP, HREMOP, INFTBG, CCP ####[place] [address] [address] [place] [phone] Chloride 101 mmol/L Normal 97-105 [facility] Comment on above: Performed By: #### C BCDIF, WSR, CRP, RF, URIC, CMP, HREMOP, INFTBG, CCP ####[place] [address] [place] [phone] CO2 25 mmol/L Normal 22-30 [facility] Comment on above: Performed By: #### C BCDIF, WSR, CRP, RF, URIC, CMP, HREMOP, INFTBG, CCP ####[place] [address] [place] [phone] Creatinine 1.27 mg/dL High 0.73-1.22 [facility] Comment on above: Performed By: #### C BCDIF, WSR, CRP, RF, URIC, CMP, HREMOP, INFTBG, CCP ####[facility] [place] [address] [phone] eGFR (non-black) mL/min/{1.73_m2} Normal [facility] Comment on above: Performed By: #### C BCDIF, WSR, CRP, RF, URIC, CMP, HREMOP, INFTBG, CCP ####[facility] [place] [address] [phone] eGFR (non-black) 60 . Normal [facility] Comment on above: Result Comment: eGFR [...] CRP, RF, URIC, CMP, HREMOP, INFTBG, CCP ####[place] [address] [place], [place] [phone] Glucose mass conc 112 mg/dL High 74-99 [facility] Comment on above: Result Comment: The [place] [employer] Association (ADA) provides guidance for cutoff [...] Standards of Medical Care in Diabetes 2016, [place] [employer]. Diabetes Care. 2016.39(Suppl 1). Performed By: #### C BCDIF, WSR, CRP, RF, URIC, CMP, HREMOP, INFTBG, CCP ####[address] [phone] Potassium molar conc 4.2 mmol/L Normal 3.7-5.1 [facility] Comment on above: Performed By: #### C BCDIF, WSR, CRP, RF, URIC, CMP, HREMOP, INFTBG, CCP ####[address] [phone] Protein 7.4 g/dL Normal 6.3-8.0 [facility] Comment on above: Performed By: #### C BCDIF, WSR, CRP, RF, URIC, CMP, HREMOP, INFTBG, CCP ####[place] [phone] Sodium 140 mmol/L Normal 136-144 [facility] Comment on above: Performed By: #### C BCDIF, WSR, CRP, RF, URIC, CMP, HREMOP, INFTBG, CCP ####[place] [address] [address], [place] [phone] Urea nitrogen 16 mg/dL Normal 9-24 [facility] Comment on above: Performed By: #### C BCDIF, WSR, CRP, RF, URIC, CMP, HREMOP, INFTBG, CCP ####[address] [phone] Hepatitis Remote Panelon BSA (Body Surface Area) Negative Normal Negative [facility] Comment on above: Performed By: #### C BCDIF, WSR, CRP, RF, URIC, CMP, HREMOP, INFTBG, CCP ####[address], [place] [phone] Hep B Core Ab,Total Negative Normal Negative [facility] Comment on above: Performed By: #### C BCDIF, WSR, CRP, RF, URIC, CMP, HREMOP, INFTBG, CCP ####[facility] [address], [place] [phone] Hepatitis C Ab IA Negative Normal Negative [facility] Comment on above: Performed By: #### C BCDIF, WSR, CRP, RF, URIC, CMP, HREMOP, INFTBG, CCP ####[facility] [address], [place] [phone] HepB Surface Ab,Qual Negative Normal Negative [facility] Comment on above: Result Comment: NEGA TIVE Performed By: #### C BCDIF, WSR, CRP, RF, URIC, CMP, HREMOP, INFTBG, CCP ####[facility], [place] [phone] PROGRESSon 05-05-2017 PROGRESS HNO ID: [id number] thor: Jennyfer Bailey (Rt): RadiologyAuthor Type: TechnicianType: Progress NotesFiled: 05/05/2017 1:56 PMNote Text: Radiology Service Progress NotePATIENT NAME: Aryan RobertsMRN: [id number] OF SERVICE: May 05, 2017TIME: 1:56 PMPATIENT IDENTITY VERIFICATION COMPLETED USING TWO (2) METHODS: Patientconfirmed name verbally and Date of .PATIENT GENDER DATA: MalePATIENT RELEVANT IMPLANT DATA REVIEWED: YesRADIOLOGY DEPARTMENT: General X-ray: Exam(s) Completed: Upper ExtremityX-Ray(s): Hand, Bilateral :PERIPHERAL IV DATA: Not applicableSIGNED BY: RT LynnNovember 2016 1:56 PM Normal [facility] PROGRESS HNO ID: [id number] thor: Aidan Barr: (none)Author Type: PhysicianType: Progress NotesFiled: 05/07/2017 2:12 PMNote Text:?[facility] ORTHOPAEDIC AND RHEUMATOLOGIC INSTITUTEDEPARTMENT OF RHEUMATIC AND [...] rotator cuff.In Jun 2016 he sustained an NV and underwent PCI. He was stented again inJ2016.He was evaluated by Rheumatology at [facility] and was diagnosed withseronegative RA. He has [...] Date- CAD (coronary artery disease)- HTN (hypertension)- NV (myocardial infarction)PSHx:PAST SURGICAL HISTORYProcedure Laterality Date- ARTHROSCOPY [...] kg (216 lb 6.4 oz) BMI 34.06 kg/l5Awjhdlb: Looks well, NAD, A AND Ox3.HEENT: EOMs [...] evidence of synovitis, there is pain on duvvrbcjx1gl MTP palpation.Investigations:Lab s:Component Latest Ref Rng AND [...] 1.00 - 4.00 k/uL 1.00Mono% % 9.1Abs [place] <0.87 k/uL 0.54Eosin% % 1.7Abs Eosin <0.46 [...] As outlined in orders.Aidan Edmondson, DO Normal [facility] Rheumatoid Factoron 05-05-20 17 Rheumatoid Factor <10 Normal <16 [facility] Comment on above: Performed By: #### C BCDIF, WSR, CRP, RF, URIC, CMP, HREMOP, INFTBG, CCP ####[facility] [address] [place], [place] [phone] Sed Rate Westergrenon 2016 Sed Rate Westergren 5 mm/hr Normal 0-15 [facility] Comment on above: Performed By: #### C BCDIF, WSR, CRP, RF, URIC, CMP, HREMOP, INFTBG, CCP ####[place] [address] [address] [place] [phone] TB by QuantiFERONon 05-05-20 17 Interpretation No evidence of curre nt or previous infection with Mycobacterium tuberculosis. Normal [facility] Comment on above: Performed By: #### C BCDIF, WSR, CRP, RF, URIC, CMP, HREMOP, INFTBG, CCP ####[place] [address] Mitogen Response 7.88 IU/mL Normal >0.49 [facility] Comment on above: Performed By: #### C BCDIF, WSR, CRP, RF, URIC, CMP, HREMOP, INFTBG, CCP ####[place] [address] [address] [place] [phone] TB Antigen Response 0.05 IU/mL Normal <0.35 [facility] Comment on above: Performed By: #### C BCDIF, WSR, CRP, RF, URIC, CMP, HREMOP, INFTBG, CCP ####[place] [address] [address] [place] [address] TB Result Negative Normal Negative [facility] Comment on above: Performed By: #### C BCDIF, WSR, CRP, RF, URIC, CMP, HREMOP, INFTBG, CCP ####[place] [address] [place] [phone] Uric Acidon 05-05-2017 Urate 7.6 mg/dL Normal 4.0-8.1 [facility] Comment on above: Performed By: #### C BCDIF, WSR, CRP, RF, URIC, CMP, HREMOP, INFTBG, CCP ####[facility] [address] [place], [place] [phone] XR HAND 3V PA/LAT/OBL LTon 1 07-05-2016 [...] the right fifth metacarpalNo evidence of inflammatory arthropathy.Sales Account Leader : NIKOS Transcribe Date/Time: May 05 2017 2:02PDictated by : Scott BEAULIEU examination was interpreted and the report reviewed and electronically signed by: JONATHAN KO MD on May 05 2017 3:02PM [id number] Normal [facility] XR HAND 3V PA/LAT/OBL RTon 1 [...] the right fifth metacarpalNo evidence of inflammatory arthropathy.Sales Account Leader : NIKOS Transcribe Date/Time: May 05 2017 2:02PDictated by : Scott BEAULIEU examination was interpreted and the report reviewed and electronically signed by: JONATHAN KO MD on May 05 2017 3:02PM [id number] Normal [facility] Vital Signs Date Time Vital Sign Value Performing Clinician Facility 02-13-2025 08:58-0400 Body height 170.[address] Cosme Berger MD Work Phone: [facility] 02-13-2025 08:58-0400 Body mass index (BMI) [Ratio] 36 kg/m2 Dr. Cosme Berger MD Work Phone: [facility] 02-13-2025 08:58-0400 Body weight 104.[address] Cosme Berger MD Work Phone: [facility] 02-13-2025 08:58-0400 Diastolic blood pressure 88 mm[Hg] Dr. Cosme Berger MD Work Phone: [facility] 02-13-2025 08:58-0400 Heart rate 76 /min Dr. Cosme Berger MD Work Phone: [facility] 02-13-2025 08:58-0400 Respiratory rate 16 /min Dr. Cosme Berger MD Work Phone: [facility] 02-13-2025 08:58-0400 Systolic blood pressure 136 mm[Hg] Dr. Cosme Berger MD Work Phone: 9(620)408-091942 [place] [address] 01-19-2025 20:13-0400 Body temperature 98.2 [degF] Dr. Cosme Berger MD Work Phone: 0(280)090-456842 [place] [address] 01-19-2025 20:13-0400 Diastolic blood pressure 94 mm[Hg] Dr. Cosme Berger MD Work Phone: 9(891)387-181542 [place] [address] 01-19-2025 20:13-0400 Heart rate 82 /min Dr. Cosme Berger MD Work Phone: 1(405)869-368442 [place] [address] 01-19-2025 20:13-0400 Respiratory rate 20 /min Dr. Cosme Berger MD Work Phone: 9(897)491-536442 [place] [address] 01-19-2025 20:13-0400 SaO2% (BldA) [Mass fraction] 96 % Dr. Cosme Berger MD Work Phone: [facility] 01-19-2025 20:13-0400 Systolic blood pressure 132 mm[Hg] Dr. Cosme Berger MD Work Phone: [facility] 01-19-2025 16:22-0400 Body height 170.[address] Cosme Berger MD Work Phone: [facility] 12-13-2024 12:01-0400 Body temperature 97.8 [degF] Dr. Cosme Berger MD Work Phone: [facility] 12-13-2024 12:01-0400 Diastolic blood pressure 87 mm[Hg] Dr. Cosme Berger MD Work Phone: [facility] 12-13-2024 12:01-0400 Heart rate 68 /min Dr. Cosme Berger MD Work Phone: 4(562)928-551342 [place] [address] 12-13-2024 12:01-0400 Respiratory rate 20 /min Dr. Cosme Berger MD Work Phone: 9(353)293-210842 [place] [address] 12-13-2024 12:01-0400 SaO2% (BldA) [Mass fraction] 94 % Dr. Cosme Berger MD Work Phone: 3(236)187-109642 [place] [address] 12-13-2024 12:01-0400 Systolic blood pressure 114 mm[Hg] Dr. Cosme Berger MD Work Phone: 4(005)714-379042 [place] [address] 12-13-2024 09:47-0400 Body height 170.[address] Cosme Berger MD Work Phone: 9(955)927-320078 [place] [address] 12-13-2024 09:47-0400 Body mass index (BMI) [Ratio] 35.8 kg/m2 Dr. Cosme Berger MD Work Phone: 8(664)296-404042 [place] [address] 12-13-2024 09:47-0400 Body weight 103.[address] Comse Berger MD Work Phone: 6(325)262-669842 [place] [address] 11-30-2024 08:22-0400 Body height 170.[address] Cosme Berger MD Work Phone: 3(428)738-300642 [place] [address] 11-30-2024 08:22-0400 Body mass index (BMI) [Ratio] 36.2 kg/m2 Dr. Cosme Berger MD Work Phone: 0(855)609-982742 [place] [address] 11-30-2024 08:22-0400 Body temperature 97.2 [degF] Dr. Cosme Berger MD Work Phone: 5(882)596-194042 [place] [address] 11-30-2024 08:22-0400 Body weight 104.[address] Cosme Berger MD Work Phone: 7(640)559-286342 [place] [address] 11-30-2024 08:22-0400 Diastolic blood pressure 87 mm[Hg] Dr. Cosme Berger MD Work Phone: [facility] 11-30-2024 08:22-0400 Heart rate 92 /min Dr. Cosme Berger MD Work Phone: 2(182)256-211242 [place] [address] 11-30-2024 08:22-0400 Respiratory rate 18 /min Dr. Cosme Berger MD Work Phone: 3(721)502-249942 [place] [address] 11-30-2024 08:22-0400 SaO2% (BldA) [Mass fraction] 99 % Dr. Cosme Berger MD Work Phone: 7(737)826-630042 [place] [address] 11-30-2024 08:22-0400 Systolic blood pressure 134 mm[Hg] Dr. Cosme Berger MD Work Phone: 5(134)303-231342 [place] [address] 10-18-2024 11:02-0400 Body height 170.[address] Cosme Berger MD Work Phone: 7(011)583-241542 [place] [address] 10-18-2024 11:02-0400 Body mass index (BMI) [Ratio] 35.5 kg/m2 Dr. Cosme Berger MD Work Phone: 3(786)423-666642 [place] [address] 10-18-2024 11:02-0400 Body weight 102.[address] Cosme Berger MD Work Phone: 9(654)609-007242 [place] [address] 10-14-2024 05:54-0400 Body mass index (BMI) [Ratio] 35.4 kg/m2 Dr. Cosme Berger MD Work Phone: 6(626)435-365842 [place] [address] 10-14-2024 05:54-0400 Body weight 102.[address] Cosme Berger MD Work Phone: 5(549)694-890842 [place] [address] 10-14-2024 05:54-0400 Diastolic blood pressure 84 mm[Hg] Dr. Cosme Berger MD Work Phone: 9(695)488-339142 [place] [address] 10-14-2024 05:54-0400 Heart rate 73 /min Dr. Cosme Berger MD Work Phone: 5(594)149-303742 [place] [address] 10-14-2024 05:54-0400 Respiratory rate 18 /min Dr. Cosme Berger MD Work Phone: [facility] 10-14-2024 05:54-0400 SaO2% (BldA) [Mass fraction] 97 % Dr. Cosme Berger MD Work Phone: [facility] 10-14-2024 05:54-0400 Systolic blood pressure 139 mm[Hg] Dr. Cosme Berger MD Work Phone: [facility] 10-11-2024 11:47-0400 Body temperature 98 [degF] Dr. Cosme Berger MD Work Phone: [facility] 10-11-2024 11:47-0400 Diastolic blood pressure 70 mm[Hg] Dr. Cosme Berger MD Work Phone: [facility] 10-11-2024 11:47-0400 Heart rate 78 /min Dr. Cosme Berger MD Work Phone: [facility] 10-11-2024 11:47-0400 Respiratory rate 18 /min Dr. Cosme Berger MD Work Phone: [facility] 10-11-2024 11:47-0400 SaO2% (BldA) [Mass fraction] 99 % Dr. Cosme Berger MD Work Phone: [facility] 10-11-2024 11:47-0400 Systolic blood pressure 124 mm[Hg] Dr. Cosme Berger MD Work Phone: [facility] 10-11-2024 09:06-0400 Body mass index (BMI) [Ratio] 36.6 kg/m2 Dr. Cosme Berger MD Work Phone: [facility] 10-11-2024 09:06-0400 Body weight 106.[address] Cosme Berger MD Work Phone: [facility] 08-20-2022 08:10-0400 Diastolic Blood Pressure Non-Invasive 86 1 CONSTANTINO BERGMAN MD [facility] 08-20-2022 08:10-0400 Heart rate 66 /min CONSTANTINO BERGMAN MD [facility] 08-20-2022 08:10-0400 Respiratory rate 13 /min CONSTANTINO BERGMAN MD [facility] 08-20-2022 08:10-0400 Systolic Blood Pressure Non-Invasive 125 1 CONSTANTINO BERGMAN MD [facility] 08-20-2022 08:02-0400 Diastolic Blood Pressure Non-Invasive 71 1 CONSTANTINO BERGMAN MD [facility] 08-20-2022 08:02-0400 Heart rate 77 /min CONSTANTINO BERGMAN MD [facility] 08-20-2022 08:02-0400 Respiratory rate 10 /min CONSTNATINO BERGMAN MD [facility] 08-20-2022 08:02-0400 Systolic Blood Pressure Non-Invasive 120 1 CONSTANTINO BERGMAN MD [facility] 08-20-2022 07:44-0400 Diastolic Blood Pressure Non-Invasive 97 1 CONSTANTINO BERGMAN MD [facility] 08-20-2022 07:44-0400 Heart rate 73 /min CONSTANTINO BERGMAN MD [facility] 08-20-2022 07:44-0400 Respiratory rate 16 /min CONSTANTINO BERGMAN MD [facility] 08-20-2022 07:44-0400 Systolic Blood Pressure Non-Invasive 144 1 CONSTANTINO BERGMAN MD [facility] 08-20-2022 07:30-0400 Body height 170 cm CONSTANTINO BERGMAN MD [facility] 08-20-2022 07:30-0400 Body weight 99.6 kg CONSTANTINO BERGMAN MD [facility] 08-20-2022 07:30-0400 Body weight 34.46 kg/m2 CONSTANTINO BERGMAN MD [facility] 08-20-2022 07:30-0400 Heart rate 82 /min CONSTANTINO BERGMAN MD [facility] 11-19-2021 11:12-0400 Diastolic blood pressure 72 mm[Hg] Dr. Cosme Berger Work Phone: [facility] Work Phone: 11-19-2021 11:12-0400 Heart rate 80 /min Dr. Cosme Berger Work Phone: [facility] Work Phone: 11-19-2021 11:12-0400 Systolic blood pressure 105 mm[Hg] Dr. Cosme Berger Work Phone: [facility] Work Phone: 11-19-2021 10:44-0400 Body height 170.[address] Cosme Berger Work Phone: [facility] Work Phone: 11-19-2021 10:44-0400 Body weight 94.[address] Cosme Berger Work Phone: [facility] Work Phone: 11-19-2021 10:44-0400 Respiratory rate 16 /min Dr. Cosme Berger Work Phone: [facility] Work Phone: 12-19-2020 08:26-0400 Body mass index (BMI) [Ratio] 34 kg/m2 Dr. Cosme Berger Work Phone: [facility] Work Phone: Encounters Encounter Date Encounter Type Care Provider Facility Start: 04-18-2025 Encounter for other preprocedural examination [facility] Start: 04-18-2025 End: 04-18-2025 ambulatory Cosme Berger [place] [place]: 02-13-2025 End: 02-13-[address] Cosme Berger MD Work Phone: -Laboratory Start: 02-13-2025 End: 02-13-2025 Patient encounter procedure Olayinka French TELEPHONE CLEANER-C -Laboratory Work Phone: Start: 02-13-2025 End: 02-13-2025 Patient encounter procedure Olayinka French TELEPHONE CLEANER-C -[facility] Work Phone: Start: 02-13-2025 End: 02-13-[address] Cosme Berger MD Work Phone: -[facility] Start: 02-13-2025 End: 02-13-2025 ambulatory Cosme Berger Facility:[facility] Start: 02-02-2025 End: 02-02-[address] Bowen Nagel MD -[facility] Work Phone: Start: 02-02-2025 End: 02-02-[address] Cosme Berger MD Work Phone: -[facility] Start: 01-19-2025 End: 01-19-2025 Emergency department patient visit Dr. Cosme Berger MD Work Phone: -Emergency Department Work Phone: Start: 01-18-2025 End: 01-18-[address] Cosme Berger MD Work Phone: -[facility] Start: 01-18-2025 End: 01-18-[address] Bowen Nagel MD -[facility] Work Phone: Start: 01-18-2025 End: 01-18-2025 ambulatory Bowen Nagel Facility:[facility] Start: 12-13-2024 Non-patient / Non-visit Dr. Oliva Perea MD -[facility] Start: 12-13-2024 End: 12-13-2024 Admission to same day surgery center Dr. Peter Perea MD -[facility] Start: 12-13-2024 End: 12-13-[address] Cosme Berger MD Work Phone: -[facility] Start: 12-07-2024 End: 12-07-[address] Bowen Nagel MD -[facility] Work Phone: Start: 12-07-2024 End: 12-07-[address] Cosme Berger MD Work Phone: -[facility] Start: 11-30-2024 End: 11-30-[address] Peter Perea MD -[facility] Work Phone: Start: 11-30-2024 End: 11-30-[address] Cosme Berger MD Work Phone: [facility] Work Phone: Start: 11-26-2024 End: 11-26-[address] Cosme Berger MD Work Phone: [facility] Work Phone: Start: 11-26-2024 End: 11-26-2024 Patient encounter procedure Paola BRODERICK -[facility] Work Phone: Start: 11-26-2024 End: 11-26-2024 ambulatory [facility] Facility:[facility] Start: 10-18-2024 End: 10-18-[address] Juma Hamilton MD -[facility] Start: 10-18-2024 End: 10-18-[address] Cosme Berger MD Work Phone: [facility] Work Phone: Start: 10-14-2024 End: 10-14-2024 Patient encounter procedure Angie BRODERICK -[facility] Work Phone: Start: 10-14-2024 End: 10-14-2024 [facility] Start: 10-11-2024 End: 10-11-2024 Emergency department patient visit Dr. Flaquito Huerta DO -Emergency Department Work Phone: Start: 07-14-2024 End: 07-14-2024 Patient encounter procedure Jamia Summers -Laboratory Work Phone: Start: 07-14-2024 End: 07-14-2024 ambulatory Jamia Summers Facility:[facility] Start: 10-06-2023 End: 10-06-2023 ambulatory [facility] Work Phone: Start: 10-06-2023 End: 10-06-2023 Patient encounter procedure [facility] Work Phone: Start: 11-18-2022 End: 11-19-2022 ambulatory COSME BERGER MD Facility:A Start: 08-20-2022 End: 08-20-2022 ambulatory COSME BERGER MD Facility:A Start: 08-20-2022 End: 08-20-2022 Minor Procedure CONSTANTINO BERGMAN MD [facility] Start: 08-05-2022 End: 08-06-2022 ambulatory COSME BERGER MD Facility:A Start: 07-08-2022 End: 07-09-2022 ambulatory CONSTANTINO BERGMAN MD Facility:B Start: 07-08-2022 End: 07-08-2022 Patient encounter procedure CONSTANTINO BERGMAN MD [facility] Start: 07-07-2022 End: 07-08-2022 ambulatory CONSTANTINO BERGMAN MD Facility:A Start: 07-07-2022 End: 07-07-2022 Patient encounter procedure CONSTANTINO BERGMAN MD [facility] Start: 05-26-2022 End: 05-26-2022 ambulatory [facility] Work Phone: Start: 05-26-2022 End: 05-26-2022 Patient encounter procedure [facility] Start: 11-19-2021 End: 11-19-[address] Cosme eBrger Work Phone: [facility] Start: 11-19-2021 End: 11-19-[address] Cosme Berger Work Phone: [facility] Start: 11-18-2021 End: 11-18-[address] Cosme Berger Work Phone: [facility] Start: 08-13-2017 End: 08-13-2017 Ambulatory ANANTHA MEZA [facility] Start: 08-05-2017 End: 08-07-2017 Ambulatory ANANTHA MEZA [facility] Start: 07-10-2017 Ambulatory AIDAN Schroeder [facility] Start: 07-10-2017 End: 07-10-2017 Ambulatory AIDAN Alexandre [facility] Start: 05-05-2017 End: 05-05-2017 Ambulatory AIDAN EDMONDSON [facility] Start: 05-05-2017 End: 05-08-2017 Ambulatory AIDAN Alexandre [facility] Procedures Date Procedure Procedure Detail Performing [...] LAD with 3.00 x 24 synergy FLORY 11/25/2016;NNL-SKQ-Idqgre, Mid and Distal RCA all with 3.0 x 28 mm Promus synergy stents 06/25/16;FLORY to Otial Diagonal 1 (2.25X18 [place]) and FLORY to mid RCA (3.0x12 Fili [place]) 11/03/23 Start: 10-06-2023 Plain x-ray of pelvi [...] Activity Detail Author Start: 04-27-2025 ambulatory Ambulatory Facility:[facility] Start: 01-19-2025 [facility] Start: 01-18-2025 MR Cervical spine [facility] Start: 01-18-2025 MRI of cervical spine Spine Cervical (Routine) [facility] Start: 12-13-2024 Anesthesia hernia repair lower abdomen nos ANESTH REPAIR OF HERNIA [facility] Start: 12-13-2024 RPR AA HRN 1ST < 3 CM RDC RPR AA HRN 1ST < 3 CM RDC [facility] Start: 12-13-2024 Patient discharge [facility] Start: 10-18-2024 X-ray of lumbosacral spine L/S Spine Min 4 Views [facility] Start: 10-18-2024 XR Spine Lumbar and Sacrum GE 4 Views [facility] Start: 10-14-2024 Evaluation of diagnostic study results [facility] Start: 10-11-2024 [facility] Start: 10-11-2024 [facility] Hepatic function panel [facility] Lipid 1996 panel - S carmencita or Plasma [facility] MR Cervical spine [facility] Heart Views W str ess and W radionuclide IV [facility] Work Phone: Nuclear Ab [Presence ] in Serum [facility] Work Phone: Patient Education [facility] Work Phone: Patient referral [facility] Work Phone: US Carotid arteries [facility] Work Phone: Payers Date Payer Category Payer Medicare [id number] 2024 Self-pay [id number] [address] [facility] [id number] [address] [facility] [id number] 2016 Unknown [id number] 1966 Unknown [id number] 2.16.8 40.1.490742.3.579.2.627 1966 Unknown [id number] 2.16.8 40.1.383498.3.579.2.627 1966 Unknown [id number] 2.16.8 40.1.150130.3.579.2.627 1966 Unknown [id number] 2.16.8 40.1.865802.3.579.2.627 1966 Unknown [id number] 2.16.8 40.1.620234.3.579.2.627 Medicare [id number] Unknown [id number] 2.16.8 40.1.393249.3.579.2.462 Unknown [id number] 2.16.8 40.1.810200.3.579.2.462 Unknown [id number] 2.16.8 40.1.623620.3.579.2.462 Unknown [id number] 2.16.8 40.1.569148.3.579.2.462 Unknown [id number] 2.16.8 40.1.716464.3.579.2.462 Unknown [id number] 2.16.8 40.1.038626.3.579.2.462 Unknown [id number] 2.16.8 40.1.117119.3.579.2.462 Unknown [id number] 2.16.8 40.1.014643.3.579.2.462 Unknown [id number] 2.16.8 40.1.736107.3.579.2.462 Unknown [id number] 2.16.8 40.1.828128.3.579.2.462 Unknown [id number] 2.16.8 40.1.482787.3.579.2.462 Unknown [id number] 2.16.8 40.1.871527.3.579.2.462 Unknown [id number] 2.16.8 40.1.573667.3.579.2.462 Unknown [id number] 2.16.8 40.1.700642.3.579.2.462 Unknown [id number] 2.16.8 40.1.603344.3.579.2.462 Unknown [id number] 2.16.8 40.1.421601.3.579.2.462 Unknown [id number] 2.16.8 40.1.273572.3.579.2.462 Unknown [id number] 2.16.8 40.1.747455.3.579.2.462 Social History Date Type Detail Facility Start: 11-19-2021 End: 06-12-2023 Tobacco smoking status MDIS Unknown if ever smoked [facility] Start: 12-19-2020 Occasional [facility] Start: 08-22-2018 None [facility] Start: 08-22-2018 Spouse/ Signif icant Other [facility] Start: 1965 Sex Assigned At Male [facility] Start: 07-28-2020 End: 01-19-2025 Tobacco smoking status Never smoked tobacco (finding) [facility] Sex Assigned At Sex [facility] Start: 08-31-2016 Non-smoker [facility] Medical Equipment Procedure Code Equipment Code Equipment Origin al Text Equipment Identifier Dates Drug-eluting coronary artery stent, [id number] lymer-coated ()[id number] FDA Start: 10-30-2023 Drug-eluting coronary artery stent, [id number] lymer-coated ()[id number] FDA Start: 10-30-2023 Goals Date Patient Goal Desired Activity /State Functional Status Date Assessment Result Facility 12-13-2024 Functional status [employer] [place] Work Phone: 08-20-2022 Functional Status Maintained [facility] Mental Status Date Assessment Result Facility 12-13-2024 Cognitive function Voice/Name [facility] Work Phone: 08-20-2022 Mental Status Orientation Oriented x 4 [facility] Clinical Notes 06-08-2016 to 12-13-2024 Note Date & Type Note Facility 12-13-2024 History and physical note [facility] 12-13-2024 Consult note Note Date/Time December 13, 2024 10:31am [facility] Medical Records Department [address] [place] [address] Pre-Anesthesia Evaluation 12/13/24 1012 MR#: [id number] Acct: [id number] Name: GRUPOTRISTIANARYAN Rep #:[id number] : 1965 59 From: Jacob Mckinney MD PCP: Dr. 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: Anesthesia History - store gift wrap associate Hx Hospitalization Yes: 2 STENTS [facility], 10/202312/01/24 11:14 Any Problems With Anesthesia [...] sips of water?: Yes PONV PONV - store gift wrap associate: PONV - store gift wrap associate Female No 12/01/24 11:14 HX of Motion [...] 12/13/24 09:47 Respiratory Assessment Respiratory Assessment - store gift wrap associate: Respiratory Tract Infection Hx - store gift wrap associate Hx Respiratory Tract Infection No 12/01/24 11:14 STOP Sleep Apnea STOP Sleep Apnea - store gift wrap associate: STOP Sleep Apnea - store gift wrap associate Hx Hypertension Yes: COTROLLED WITH MEDS 12/01/24 [...] Tobacco Use History Tobacco Use History - store gift wrap associate: Tobacco Use History - store gift wrap associate Tobacco Use Smoking Status Never smoker 12/01/24 11:14 Hx Tobacco Use No 12/01/24 11:14 Years Smoking Packs Smoked per Day Smoking Cessation Date was within the last 15 years Hx Smoking Cessation Date Hx Smoking Cessation No 12/01/24 11:14 Counseling Hematologic Medial History Hematologic Hx - store gift wrap associate: Hematologic Medical Hx - welt rander Hx of Blood Transfusion No 12/01/24 11:14 [...] confused, unrespo /Reproduction History /Reproductive History - store gift wrap associate: /Reproductive Hx- store gift wrap associate Hx Now No 12/01/24 11:14 Gestational Age [...] into ascending aorta (06/25/16) Atherosclerotic heart disease [place]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 Hypercholesterolemia Non-STEMI (non-ST [...] MD Cosigner Signature: Date CC: ~ Signed [facility] Work Phone: 1(385) 777-803807-08-2025 Consult note [facility] Medical Records Department [address] [place] [address] Anesthesia Postop Eval I 12/13/24 1136 MR#: [id number] Acct: [id number] Name: ARYAN ROBERTS Rep #:[id number] : 1965 59 From: Rhiannon ABARCA PCP: Dr. Cosme Berger MD Status:Aleena [facility] Y Race: C Location: [place] [address] Anesthesia: Postop Eval I Current Vital Signs [...] Postop Eval 1 completed: Yes 12/13/24 1139 LIQUID YEAST SUPERVISOR> Date _ Rhiannon Mcclellan LIQUID YEAST SUPERVISOR Cosigner Signature: Date CC: ~ Signed [facility]07-08-2025 Discharge summary [facility] Medical Records Department [address] [place] [address] Instructions for Home/Discharge Instructions 12/13/24 1125 MR#: [id number] Acct: [id number] Name: ARYAN ROBERTS Rep #:[id number] : 1965 59 From: Peter franklin MD PCP: Dr. Cosme Berger MD Status:Aleena [facility] Discharge Instructions Procedure Hernia Diet Discharge Diet: [...] to schedule 2 week follow up appointment. [phone] Test Results: Test results from this visit will be discussed in further detail at your follow- up appointment, if applicable. Discharge Plan Admission Attending Provider: Peter Perea Primary Care Provider: Cosme Berger Instructions Print Language: Canadian Discharge Orders/Prescriptions Prescriptions: New oxycodone 5 mg [...] CC: Dr. Cosme Berger MD ~ Signed [facility]07-08-2025 History and physical note Author Peter [facility] Note Date/Time December 13, 2024 12:43 pm [facility] Medical Records Department [address] [place] [address] History & Physical Exam 12/13/24925 MR#: [id number] Acct: [id number] Name: ARYAN ROBERTS Rep #:[id number] : 1965 59 From: Peter franklin MD PCP: Dr. Cosme Berger MD Status:R [facility] Location: [place] [address] History and Physical Date of Admission: 12/13/24 [...] into ascending aorta (06/25/16) Atherosclerotic heart disease [place]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 Hypercholesterolemia Non-STEMI (non-ST [...] for 5 days. Peter Perea MD Pager: [facility] [address] [place] [address], [address] [place] [address] Office: I have examined the patient and the H&P has been reviewed. There are no clinicalchanges since date of exam. 12/13/24 09 <Electronically signed by Peter Perea MD> Cosigner Signature (if applicable): CC: Dr. Peter Perea MD; Dr. Cosme Berger MD~ Signed [facility] Work Phone: 1(461) 184-222407-08-2025 Procedure note [facility] Medical Records Department [address] [place] [address] Operative Report 12/13/24 1122 MR#: [id number] Acct: [id number] Name: ARYAN ROBERTS Rep #:[id number] : 1965 59 From: Peter franklin MD PCP: Dr. Cosme Berger MD Status:[facility] Location: [place] [address] Operative Report (Standard) Operative Information Date of Procedure: 12/13/24 Pre-Operative Diagnosis: Umbilical hernia Post-Operative Diagnosis: Umbilical hernia Surgery/Procedure Performed: Umbilical hernia repair rail transportation tabeler: No Type of Anesthesia: General/Regional RN Documented [...] Perea MD; Dr. Cosme Berger MD~ Signed [facility]07-08-2025 Consult note [facility] Medical Records Department [address] [place] [address] Pre-Anesthesia Evaluation 12/13/24 1012 MR#: [id number] Acct: [id number] Name: ARYAN ROBERTS Rep #:[id number] : 1965 59 From: Jacob Mckinney MD PCP: Dr. Cosme Berger MD Status:R EG [facility] Y Race: C Location: [place] [address] ASA Classification* ASA Classification ASA Classification: 3 [...] UMBILICAL HERNIA Anesthesia History Anesthesia History - store gift wrap associate: Anesthesia History - store gift wrap associate Hx Hospitalization Yes: 2 STENTS [facility], 10/202312/01/24 11:14 Any Problems With Anesthesia [...] sips of water?: Yes PONV PONV - store gift wrap associate: PONV - store gift wrap associate Female No 12/01/24 11:14 HX of Motion [...] 12/13/24 09:47 Respiratory Assessment Respiratory Assessment - store gift wrap associate: Respiratory Tract Infection Hx - store gift wrap associate Hx Respiratory Tract Infection No 12/01/24 11:14 STOP Sleep Apnea STOP Sleep Apnea - store gift wrap associate: STOP Sleep Apnea - store gift wrap associate Hx Hypertension Yes: COTROLLED WITH MEDS 12/01/24 [...] Tobacco Use History Tobacco Use History - store gift wrap associate: Tobacco Use History - store gift wrap associate Tobacco Use Smoking Status Never smoker 12/01/24 11:14 Hx Tobacco Use No 12/01/24 11:14 Years Smoking Packs Smoked per Day Smoking Cessation Date was within the last 15 years Hx Smoking Cessation Date Hx Smoking Cessation No 12/01/24 11:14 Counseling Hematologic Medial History Hematologic Hx - store gift wrap associate: Hematologic Medical Hx - welt rander Hx of Blood Transfusion No 12/01/24 11:14 [...] confused, unrespo /Reproduction History /Reproductive History - store gift wrap associate: /Reproductive Hx- store gift wrap associate Hx Now No 12/01/24 11:14 Gestational Age [...] into ascending aorta (06/25/16) Atherosclerotic heart disease [place]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 Hypercholesterolemia Non-STEMI (non-ST [...] vamshi JIN> Date _ Jacob Mckinney MD [facility] Signature: Date CC: ~ Signed [facility]07-08-2025 [facility] Medical Records Department [address] [place] [address] History Physical Exam 12/13/24925 MR#: [id number] Acct: [id number] Name: ARYAN ROBERTS Rep #: [id number] : 1965 59 From: Peter Perea MD PCP: Dr. Cosme Berger MD Status:REG [facility] Location: [place] [address]- History and Physical Date of Admission: 12/13/24 [...] into ascending aorta (06/25/16) Atherosclerotic heart disease [place]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 Hypercholesterolemia Non-STEMI (non-ST [...] heart attack and heart (more content not included)...[facility]07-02-2025 Progress note [facility] [address] [place] [address] OFFICE VISIT Date of Service: 12/07/24 MR#: [id number] Acct: [id number] Name: ARYAN ROBERTS Rep #: [id number] : 1965 Provider: Dr. Bella Nagel MD Age/Sex: 59/M Location[place] [facility] Status: Signed Intake Vital Signs 10/18/24 11:02 [...] into ascending aorta (06/25/16) Atherosclerotic heart disease [place]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 Hypercholesterolemia Non-STEMI (non-ST [...] by me, Dr. Bowen Nagel MD 12/07/24 1688. 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 Cosme Berger MD ~ [facility]07-02-2025 Progress note Author Bowen Nagel [facility] Note Date/Time December 07, 2024 2:43p m [facility] [address] [place] [id number] OFFICE VISIT Date of Service: 12/07/24 MR#: [id number] Acct: [id number] Name: ARYAN ROBERTS Rep #: [id number] : 1965 Provider: Dr. Bella Nagel MD Age/Sex: 59/M Location[place] [facility] Status: Signed Intake Vital Signs 10/18/24 11:02 [...] into ascending aorta (06/25/16) Atherosclerotic heart disease [place]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 Hypercholesterolemia Non-STEMI (non-ST [...] by me, Dr. Bowen Nagel MD 12/07/24 2355. 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 Cosme Berger MD ~ [facility] Work Phone: 1(777) 156-155606-25-2025 Evaluation note* Diagnosis Onset Date Resolution Status [...] (BMI 30-39.9) chronic Sep tember 2024 8:29am [facility] Work Phone: 1(434) 940-855005-13-2025 Evaluation note* Diagnosis Onset Date Resolution Status [...] Obesity (BMI 30-39.9) chronic Sep 2024 8:29am [facility] Work Phone: 1(219) 315-154205-09-2025 Evaluation note* Diagnosis Onset Date Resolution Status Admit Date Atherosclerotic heart diseas e [place]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 chronic October 14, 2024 8:19am Essential hypertension chronic Ma 2024 8:19am History of coronary artery s tent placement November 03, 2023 chronic October 14, 2024 8:19am Hypercholesterolemia chronic October 14, 2024 8:19am Coronary artery dissection June, inacti ve October 14, 2024 8:19am [facility] Work Phone: 1([phone]) 924-223705-09-2025 Evaluation note* Diagnosis Onset Date Resolution Status Admit Date Atherosclerotic heart diseas e [place]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 chronic October 14, [...] Lumbar radiculopathy acute October 18, 2024 10:44am [facility] Work Phone: 1(705) 711-533405-09-2025 Evaluation note* Diagnosis Onset Date Resolution Status Admit Date Atherosclerotic heart diseas e [place]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 chronic October 14, [...] 2024 10:44am Umbilical hernia acute November 8:09am [facility] Work Phone: 1(211) 163-282005-09-2025 Evaluation note* Diagnosis Onset Date Resolution Status Admit Date Atherosclerotic heart diseas e [place]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 chronic October 14, [...] Lumbar radiculopathy acute December 07, 2024 1:13pm [facility] Work Phone: 1(924) 360-623005-09-2025 Evaluation note* Diagnosis Onset Date Resolution Status Admit Date Atherosclerotic heart diseas e [place]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 chronic October 14, [...] Obesity (BMI 30-39.9) acute Jan us2024 3:19pm [facility] Work Phone: 1(224) 610-398703-15-2023 Hospital Discharge instructions Patient Education 08/20/2022 07:28:33 Discharge trigger MALAIKA ([id number]) [facility] Discharge Instructions POST PROCEDURE [...] bandaid dry and remove in 24 hours. [facility] 03-15-2023 Summary of episode [...] medication providers or retail pharmacies. Education Materials [facility] Discharge Instructions POST PROCEDURE [...] to receive it can visit one of [facility] vaccine clinics. There are many vaccine clinic locations within the [facility]. For locations and available times, please visit [email or web address] It is important to note that some COVID mobile vaccine clinics are held outdoors and may be canceled in rainy or stormy conditions. To learn more about pediatric vaccinations (ages 5-11), we invite you to visit the [facility] webpage. [email or web address].[email or web address]/[email or web address]-Gvmlueeouhq-Kuunjpugqu-Lwvne-[email or web address] [email or web address].htmlTo learn more about the COVID-19 vaccine, we invite you to visit the CDC website for a list of frequently asked questions. https://www.cdc.gov/coronavirus/2019-ncov/vaccines/faq.html [employer] Patient Portal Access Instructions: Stay connected with your healthcare team and access your personal medical information anytime with the [employer] Patient Portal.If you would like a full copy of your medical records, please contact the [facility] Medical Records Department, Thursday through Thursday between 8a.m. and 4:30p.m. Please follow the directions below to access the portal: 1.Access the email account you provided upon registration to the hospital.2.Look for an invitation email from [facility].3.Open the email and access the invitation link: Accept Invitation to [employer].Fill in the required walker to create your account. Sign into [email or web address] with your username and password that you [...] you will allow to register on the [employer] Patient Portal for access to your information. You can also access the [employer] Patient Portal on the [employer]. Simply click on Health Records under [employer] and then click on the [employer] logo. HOW TO SAFELY DISPOSE OF PRESCRIPTION [...] Call your local pharmacy or go to http://[facility].[employer]0U1Nn3z to find one close to you.3.Make use of household items: Use cat litter or old coffee grounds to dispose medications if other options arenot available. Mix your drugs with these household products, seal them in an airtight container andthrow it into the garbage. Call [facility]: [phone] to be sure your drugs can be [...] Signatures Patient Education Materials Discharge trigger MALAIKA ([id number]) Medication Leaflets My discharge plan and instructions have been reviewed and explained to me and I,ARYAN ROBERTS understand my current condition and have read and understand these discharge instructions. I have received a written copy of the plan/instructions. If I have questions, I am aware that I should contact my doctor. 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 Coronary artery disease Taking Plavix and [...] CONSTANTINO BERGMAN MD on 08/20/2022 07:28 AM [facility] Pain [id number] Evaluation note* Diagnosis Onset Date Resolution Status Coronary artery dissection June, acute Dizziness acute Atherosclerotic heart diseas e [place]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 chronic Essential hypertension chron ic History of coronary artery stent placement November 25, 2016 chronic Hypercholesterolemia chronic [facility] Work Phone: Consult note Author Rhiannon Mcclellan [facility] Note Date/Time December 13, 2024 11:39 am [facility] Medical Records Department [address] [place] [address] Anesthesia Postop Eval I 12/13/24 1136 MR#: [id number] Acct: [id number] Name: ARYAN ROBERTS Rep #:[id number] : 1965 59 From: Rhiannon ABARCA PCP: Dr. Cosme Berger MD Status:Aleena MARKHAM Y Race: C Location: [place] [address] Anesthesia: Postop Eval I Current Vital Signs [...] CRNA Cosigner Signature: Date CC: ~ Signed [facility] Work Phone: Discharge summary Author Peter [facility] Edmaykel [facility] Note Date/Time December 13, 2024 11:27 am [facility] Medical Records Department [address] [place] [id number] Instructions for Home/Discharge Instructions 12/13/24 1125 MR#: [id number] Acct: [id number] Name: ARYAN ROBERTS Rep #:[id number] : 1965 59 From: Peter franklin MD [...] to schedule 2 week follow up appointment. [phone] Test Results: Test results from this visit will be discussed in further detail at your follow- up appointment, if applicable. Discharge Plan Admission Attending Provider: Peter Perea Primary Care Provider: Cosme Berger Instructions Print Language: [place] Discharge Orders/Prescriptions Prescriptions: New oxycodone 5 mg [...] CC: Dr. Cosme Berger MD ~ Signed [facility] Work Phone: Evaluation + Plan note [...] 07/07/22 * XR Spine Lumbar AP/LAT/FLEX/EXT 07/07/22 [facility] Management Evaluation + Plan note Future Appointments Appointment Date:08/05/2022 08:00:00 AM Scheduled Provider:CONSTANTINO BERGMAN MD Location:PM Office Appointment Type:PM OV Diagnostic Tests Pending * Rheumatoid Factor 07/08/22 * Antinuclear Antibody Screen, Serum 07/08/22 [facility] Evaluation + Plan note Future Appointments Appointment Date:09/26/2022 09:00:00 AM Scheduled Provider:CONSTANTINO BERGMAN MD Location:PM Office Appointment Type:PM OV [facility] Pain Management Evaluation noteNo assessment information available [facility] Work Phone: Hospital course Narrative No data available for this section [facility] Pain Management Hospital Discharge instructions No data available for this section [facility] for Pain Management Hospital Discharge instructionsAdditional Instructions [...] your stent was placed over a year ago.[facility] Work Phone: Progress note No data available for this section [facility] Management reason for referral (narrative)No reason for referral [facility]: Summary Purpose Family History No Family History Records Found Relationship Condition Age at Onset Recorded Date/T chad mother Coronary artery disease Unknown Rheumatic fever Unknown brother Coronary artery disease Unknown Advance Directives No Advanced Directives Records Found Advance Directive Response Recorded Date/ Time Advance Directives No June 25, 2016 11:33am Living Will No August 22, 2018 6:22pm Power of Broke Man No August 22 6:22pm Advance Directive Response Recorded Date/ Time Advance Directives No June 25, 2016 10:33am Living Will No August 22, 2018 5:22pm Power of Broke Man No August 22 5:22pm Advance Directive Response Recorded Date/ Time Do you have a Healthcare Power of Broke Man? No October 11, 2024 9:17am Advance Directives No June 25, 2016 11:33am Advance Directive Response Recorded Date/ Time Do you have a Healthcare Power of Broke Man? No October 11, 2024 9:17am Do you have a Healthcare Power of Broke Man? No December 01, 2024 11:14am Advance Directives No June 25, 2016 11:33am Advance Directive Response Recorded Date/ Time Do you have a Healthcare Power of Broke Man? No October 11, 2024 9:17am Do you have a Healthcare Power of Broke Man? No December 01, 2024 11:14am Do you have a Healthcare Power of Broke Man? No January 19, 2025 6:13pm Advance Directives No June 25, 2016 11:33am Advance Directive Response Recorded Date/ Time Living Will No October 29, 2023 6 :49pm Do you have a Healthcare Power of Broke Man? No October 29, 2023 6:49pm Do you have a Healthcare Power of Broke Man? No December 01, 2024 11:14am Do you have a Healthcare Power of Broke Man? No January 19, 2025 6:13pm Advance Directives No June 25, 2016 11:33am Procedure Findings Note [facility] Patient Name: ARYAN ROBERTS0 [place] Date of : [address] [place] [address] Unit Number: [id number] Procedure Note Patient Status: REG [facility] Attending Doctor: Issa Menard MD Service Date: [...] artery diss ection Dizziness Atherosclerotic heart disease [place]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 Essential hypertension History of coronary artery stent placement Hypercholesterolemia Chief Complaint Admit Date CHRONIC BACK PAIN October 11, 2024 8:27am s/p ER but something still not right M ay 2024 8:19am LUMBAR SPINE October 18, 2024 10:44 am RM 1 October 18, 2024 11:20 am Reason for Visit Admit Date Atherosclerotic heart diseas e [place]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 October 14, 2024 [...] Visit Admit Date Atherosclerotic heart diseas e [place]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 October 14, 2024 [...] Visit Admit Date Atherosclerotic heart diseas e [place]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 October 14, 2024 [...] Visit Admit Date Atherosclerotic heart diseas e [place]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 October 14, 2024 [...] Visit Admit Date Atherosclerotic heart diseas e [place]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 October 14, 2024 [...] 2025 3: 19pm 1 Y FU/MOVED FROM [facility] February 13 8:29am Reason for Visit Admit [...] 2025 3: 19pm 1 Y FU/MOVED FROM [facility] February 13 8:29am Reason for Visit Admit [...] section and content) DATE CREATED AUTHOR 11/27/2017 [facility] DATE CREATED AUTHOR AUTHOR'S ORGANIZ ATION 08/02/2020 [facility] DATE CREATED AUTHOR AUTHOR'S ORGANIZ ATION 11/29/2022 [facility] ([place]) DATE CREATED AUTHOR AUTHOR'S ORGANIZ ATION 04/19/2025 [facility] Goals (unrecognized section and content) Goals [...] Member Role: Primary Care Physician Address: Address: [address] [place] [address] [address] ELVIS COLLINS [address] Care Team Related Persons Name: SUZIE FAY Care Team Personnel Name: COSME BERGER MD Position: P3 Physician - Family Medicine Member Role: Primary Care Physician Address: Address: [address] ELVIS COLLINS [address] Care Team Related Persons Name: SUZIE [...] 14, 2024 End: July 14, 2024 Jamia Barnett Attending Provider Active Start : July 14, 2024 End: July 14, 2024 Jamia Barnett Referring Provider Active Start : July 14, [...] End: February 13, 2025 Olayinka French NP, TELEPHONE CLEANER-C Attending Provider Active S tart: February 13, [...] 2025 End: February 13, 2025 Olayinka French TELEPHONE CLEANER, TELEPHONE CLEANER-C Attending Provider Active S tart: February 13, 2025 End: February 13, 2025 Team Status: Inactive Member Role/Relationship Status Dates Dr. Cosme Berger MD Primary Care Provider Active Start: February 13, 2025 End: February 13, 2025 Olayinka French TELEPHONE CLEANER, TELEPHONE CLEANER-C Attending Provider Active S tart: February 13, 2025 End: February 13, 2025 Olayinka French TELEPHONE CLEANER, TELEPHONE CLEANER-C Referring Provider Active S tart: February 13, [...] BE BASED ON THE PRIMARY CLINICAL RECORDS. [facility] [employer] provides no warranty or guarantee of the accuracy or completeness of information in this document.
[2025-04-27] MEDS: Lactated Ringers 1,000 ML 15 ML IV (06:18)
--- NOTE | 2025-04-27 06:30 | RAD_ITS ---
PROCEDURE: CERV SPINE 2 OR 3 VIEWS 04/27/2025 REASON FOR EXAM: ANTERIOR CERVICAL FUSION C3-4 C4-5 C5-6 C6-7 TECHNIQUE: Procedure Code: RADSPCL Modality: DX Procedure: CERV SPINE 2 OR 3 VIEWS COMPARISON: 04/21/2025. FINDINGS: Intraoperative fluoroscopy was performed for a C3 through C7 anterior cervical discectomy and fusion. 12 images. 211.3 seconds of fluoroscopic time. 60.47 mGy. See procedure report for full details. RAD/Cerv Spine 2 or 3 Views IMPRESSION: As above. Reading Location: [id number]
--- NOTE | 2025-04-27 06:43 | PCM.PRE.AN2 ---
ASA Classification* ASA Classification ASA Classification: 3 Assessment & Plan Anesthesia* Anesthesia Assessment Anesthesia Assessment: Discussed sedation and/or anesthesia options, risks, benefits, and alternatives with patient/parents/legal guardian/POA. Questions invited. The patient/parents/legal guardian/POA seems to understand and agrees to proceed with anesthesia plan. Reviewed the physical assessment, medical history, allergy history and patient home medications list prior to surgery/procedure/anesthetic and documented any changes. Performed airway and anesthesia risk assessments. Anesthesia Type Anesthesia Type: General Anesthesia Focused Assessment* Temperature: 97.2 F Pulse Rate: 76 Blood Pressure: 156/98 Respiratory Rate: 16 Pulse Ox: 98 Airway Assessment Mouth opens: >3 cm Mallampati Score: II Labs Anesthesia Preop lab: CBC WBC, (4.4-11.0) 4.8 K/mm3 04/13/25, 09:56 RBC, (4.6-6.2) 5.26 M/mm3 04/13/25, 09:56 Hgb, (13.0-16.5) 15.9 g/dL 04/13/25, 09:56 Hct, (40-54) 47.9 % 04/13/25, 09:56 Plt Count, (150-450) 251 K/mm3 04/13/25, 09:56 CHEMISTRY Potassium, (3.3-5.1) 4.2 mmol/L 04/13/25, 09:56 Sodium, (133-145) 143 mmol/L 04/13/25, 09:56 Magnesium, (1.5-2.2) 2.4 mg/dL H 04/13/25, 09:56 BUN, (4-19) 15 mg/dL 04/13/25, 09:56 Creatinine, (0.70-1.20) 1.20 mg/dL 04/13/25, 09:56 Glucose, (70-99) 138 mg/dL H 04/13/25, 09:56 POC Glucose, (74-106) 85 mg/dL Today, 05:55 COAG PT, (11.7-14.9) 13.7 SECONDS 08/23/18, 05:15 Pre-Assessment Diagnosis/Proposed Procedure Planned Operative Procedure(s): ERAS, Anterior Cervical Fusion C3-4, C4-5, C5-6 AND C6-7, posterior instrumented fusion C3-4, C4-5, C5-6 and C6-7 Anesthesia History 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 When Was Last Pacemaker Check QUESTION #4 FULL TEXT: You/Your Family Experience fever (hyperthermia) with Anesthesia Last Oral Intake Last Oral intake: Last Oral Intake NPO since 04:30 04/27/25 06:05 Meds taken in AM with sips of Yes 04/27/25 06:05 water? Meds patient instructed to take am of surgery PONV PONV - kids club attendant: PONV - kids club attendant Female No 04/13/25 09:29 HX of Motion Sickness No 04/13/25 09:29 HX of N/V After Surgery No 04/13/25 09:29 Non-Smoker Yes 04/13/25 09:29 Duration of Surgery greater Yes 04/13/25 09:29 than 60 minutes Number of Risk Factors 2 04/13/25 09:29 PONV Score Moderate Risk 04/13/25 09:29 Height & Weight Height & Weight: Anesthesia: Height & Weight Height 5 ft 7 in 04/27/25 06:05 Weight: 100.516 kg 04/27/25 06:05 Body Mass Index (BMI) 34.7 04/27/25 06:05 Respiratory Assessment Respiratory Assessment - kids club attendant: Respiratory Tract Infection Hx - kids club attendant Hx Respiratory Tract Infection No 04/13/25 09:29 STOP Sleep Apnea STOP Sleep Apnea - kids club attendant: STOP Sleep Apnea - kids club attendant Hx Hypertension Yes: CONTROLLED WITH MEDS 04/13/25 09:29 Hx Sleep Apnea Yes: NON-COMPLIANT 04/13/25 09:29 CPAP No 04/13/25 09:29 BIPAP No 04/13/25 09:29 Do you snore loudly (louder than talking or can be heard Do you often feel tired/ fatigued/ sleepy during daytime? Has anyone observed you stop breathing during sleep? STOP Results Positive 04/13/25 09:29 QUESTION #5 FULL TEXT : Do you snore loudly (louder than talking or can be heard through closed doors)? 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 Specify any problems Hx of Preganancy in last 3 N/A 04/13/25 09:29 Months Nurse Filling Out Transfusion VCHRISTIN 04/13/25 09:29 & Questions: Date: 04/13/25 04/13/25 09:29 Time: 09:30 04/13/25 09:29 Patient unable to answer at this time (ie. confused, unrespo /Reproduction History /Reproductive History - kids club attendant: /Reproductive Hx- kids club attendant Hx Now No 04/13/25 09:29 Gestational Age (in weeks): EDC: Hx Hx Para Hx Section SAB No 04/13/25 09:29 Does the father of the baby or his family experience fever w Father of the baby Malignant Hypertension history comment Active Medications Active Medications: Current Medications Generic Name Dose Route Start Last Admin Trade Name Freq PRN Reason Stop Dose Admin Acetaminophen 1,000 mg 04/27/25 07:30 04/27/25 06:19 Acetaminophen 500 Mg Tablet PO 04/27/25 07:31 1,000 mg PREOP ONE Administration Dexamethasone Sodium Phosphate 8 mg 04/27/25 07:30 Dexamethasone 10 Mg/Ml Vial IV 04/27/25 07:31 INTRAOP ONE Dexamethasone Sodium Phosphate 4 mg 04/27/25 07:30 Dexamethasone 4 Mg/Ml Vial IV 04/27/25 07:31 POSTOP ONE Cefazolin Sodium 2 gm/ Sodium 110 mls @ 150 mls/hr 04/27/25 07:30 Chloride IV 04/27/25 08:13 INTRAOP ONE Tranexamic Acid 1,000 mg/ 110 mls @ 440 mls/hr 04/27/25 07:30 Sodium Chloride IV 04/27/25 07:44 INTRAOP ONE Tranexamic Acid 1,000 mg/ 110 mls @ 440 mls/hr 04/27/25 07:30 Sodium Chloride IV 04/27/25 07:44 INTRAOP ONE Lactated Ringer's 1,000 mls @ 15 mls/hr 04/27/25 06:15 04/27/25 06:18 IV 15 mls/hr .Q48H MAHOGANY Administration Insulin Human Lispro 1 - 6 unit 04/27/25 07:30 Insulin Lispro 100 Unit/Ml Insuln.Pen SC Q4H PRN PRN BG>/= 180, SEE PROTOCOL Protocol PFSH Medical History Pre-op testing Wears glasses History of steroid therapy Arthritis Kidney stones High cholesterol Gastric reflux Non-smoker Sleep apnea Shortness of breath on exertion History of pain when walking Obesity (BMI 30-39.9) Bulging of cervical intervertebral disc Back pain History of echocardiogram History of stress test Cardiology follow-up encounter Umbilical hernia Coronary artery dissection (~06/25/16) Essential hypertension Inflammatory polyarthropathy BPH (benign prostatic hyperplasia) GERD (gastroesophageal reflux disease) 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 Hypercholesterolemia Non-STEMI (non-ST elevated myocardial infarction) Home Medications ?Medication ?Instructions ?Recorded ?Last Taken ?Type fenofibrate 160 mg tablet 160 mg PO DAILY CHOLESTEROL 06/12/23 04/26/25 08:00 History ezetimibe 10 mg tablet 10 mg PO DAILY CHOLESTEROL #90 05/16/24 04/26/25 08:00 Rx TABLETS artificial tears(hypromellose) 0.3 1 drp EACH EYE BID PRN dry eye(s) 10/11/24 04/27/25 03:00 History % eye drops cholecalciferol (vitamin D3) 50 50 mcg PO QODAY SUPPLEMENT 10/11/24 04/25/25 History mcg (2,000 unit) capsule folic acid 800 mcg tablet 800 mcg PO BID SUPPLEMENT 10/11/24 04/26/25 08:00 History losartan 25 mg tablet 12.5 mg PO DAILY BP 02/13/25 04/26/25 08:00 History omeprazole 20 mg capsule,delayed 20 mg PO QDAY GERD 02/13/25 04/27/25 03:00 History release baclofen 10 mg tablet 10 mg PO 4X/DAY PAIN 04/13/25 04/26/25 20:00 History Allergy/AdvReac Type Severity Reaction Status Date / Time atorvastatin (From Lipitor) AdvReac Severe mylagias Verified 04/27/25 05:57 evolocumab (From Repatha AdvReac Severe Blurred Verified 04/27/25 05:57 SureClick) vision metoprolol AdvReac Severe Rash Verified 04/27/25 05:57 hydrocodone bitartrate (From AdvReac Intermediate Itching Verified 04/27/25 05:57 Vicodin) pravastatin AdvReac GI upset Verified 04/27/25 05:57 and sore mouth Family History Mother , age 64 CAD (coronary artery disease) Rheumatic fever Brother CAD (coronary artery disease) Surgical History History of cardiac catheterization History of umbilical hernia repair (~12/2024) H/O shoulder surgery History of colonoscopy (~10/2019) Hx of abdominal surgery (~10/2019) Hx of hand surgery History of coronary artery stent placement (11/03/23) Social History Smoking Status: Never smoker alcohol intake: current alcohol intake frequency: a few times a month substance use type: does not use caffeine: Yes Type: coffee Number of servings: 1 Review of Systems (Anesthesia) ROS Narrative System reviewed and no additional complaints, except as documented.
--- NOTE | 2025-04-27 07:17 | HP.PCM_ITS ---
History and Physical Date of Admission: 04/27/25 MR#: [id number] Acct: [id number] Name: ARYAN HUFFMAN Rep #: [id number] : 1965 Provider: Dr. Bowen Nagel MD Age/Sex: 60/M Location: [facility] [place] Status: Signed Intake Vital Signs 02/14/2508:58 Height 5 ft 7 in Weight: 230 lb BMI 36.0 BP 136/88 H Blood Pressure Location Lt brachial Position Sitting Respiration 16 Pulse 76 Pulse Source NIBP Intake Visit Reasons: cervical spine Chief Complaint: Cervical Spine Pre op Accompanied by: Self Is patient in pain?: Yes (lumbar ) Pain scale (1-10): 6 Allergies atorvastatin (From Lipitor) Adverse Reaction (Severe, Verified 04/18/25 09:23) mylagias evolocumab (From Repatha SureClick) Adverse Reaction (Severe, Verified 04/18/25 09:23) Blurred vision metoprolol Adverse Reaction (Severe, Verified 04/18/25 09:23) Rash hydrocodone bitartrate (From Vicodin) Adverse Reaction (Intermediate, Verified 04/18/25 09:23) Itching pravastatin Adverse Reaction (Verified 04/18/25 09:23) GI upset and sore mouth Medications ?Medication ?Instructions ?Recorded ?Confirmed ?Type fenofibrate 160 mg tablet 160 mg PO DAILY CHOLESTEROL 06/12/2305/02 History ezetimibe 10 mg tablet 10 mg PO DAILY CHOLESTEROL #90 05/16/24 04/18/25 Rx TABLETS artificial tears(hypromellose) 0.3 1 drp EACH EYE BID PRN dry eye(s) 04/18/25 History % eye drops cholecalciferol (vitamin D3) 50 50 mcg PO QODAY SUPPLEMENT 10/11/2404/08 History mcg (2,000 unit) capsule folic acid 800 mcg tablet 800 mcg PO BID SUPPLEMENT 10/11/2404/18 History losartan 25 mg tablet 12.5 mg PO DAILY BP 02/13/25 04/18/25 Hi story omeprazole 20 mg capsule,delayed 20 mg PO QDAY GERD 02/13/25 04/18/25 His tory release baclofen 10 mg tablet 10 mg PO 4X/DAY PAIN 04/13/25 04/18/25 H istory PFSH Medical History Pre-op testing Wears glasses History of steroid therapy Arthritis Kidney stones High cholesterol Gastric reflux Non-smoker Sleep apnea Shortness of breath on exertion History of pain when walking Obesity (BMI 30-39.9) Bulging of cervical intervertebral disc Back pain History of echocardiogram History of stress test Cardiology follow-up encounter Umbilical hernia Coronary artery dissection (~06/25/16) Essential hypertension Inflammatory polyarthropathy BPH (benign prostatic hyperplasia) GERD (gastroesophageal reflux disease) 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 Hypercholesterolemia Non-STEMI (non-ST elevated myocardial infarction) Surgical History History of cardiac catheterization History of umbilical hernia repair (~12/2024) H/O shoulder surgery History of colonoscopy (~10/2019) Hx of abdominal surgery (~10/2019) Hx of hand surgery History of coronary artery stent placement (11/03/23) Family History Mother , age 64 CAD (coronary artery disease) Rheumatic fever Brother CAD (coronary artery disease) Social History Smoking Status: Never smoker alcohol intake: current alcohol intake frequency: a few times a month substance use type: does not use caffeine: Yes Type: coffee Number of servings: 1 HPI cervical spine Details: This documentation accurately reflects the service provided and the decisions made by me, Dr. Bowen Nagel MD 04/18/25 0915. Part of today?s visit was documented by Jamia Dugan RN, acting as scribe. ARYAN HUFFMAN is a 60 year old M here today for preoperative visit for C3-7 ACDF, C3-7 posterior instrumented fusion scheduled on 04-27-25. The patient is a 60-year-old male presenting with concerns related to an upcoming cervical spine fusion surgery. The patient has a history of a four-corner fusion on his wrist, which initially did not heal properly, requiring bone marrow grafting from his hip, after which it healed well. He reports numbness in both arms, particularly at night, which has worsened over the past year and a half. The patient has previously been on Plavix and aspirin, which were discontinued following a consultation with his orange picker and family doctor. He denies having diabetes or smoking, which are positive factors for his surgical recovery. - Neurological: Reports numbness in bilateral arms, particularly at night, worsening over the past year and a half. - Cardiovascular: Denies chest pain, breathing difficulties, and has discontinued Plavix and aspirin. - Endocrine: Denies diabetes. - Respiratory: Denies smoking. Attestation: Documentation on this patient encounter was supported using ambient scribe technology/ voice AI technology. The patient consented to recording for the purpose of documenting the encounter. Provider reviewed content of the generated note prior to signature. ARYAN HUFFMAN is a 59 year old M here today for MRI review of the cervical spine. He states that he is not any better and is still having a lot of pain in his lower back. He did have an epidural injection in his lower back last 01/26 which did not give him a lot of relief. The injection helped for 4 days. He does have pain from his T10 down. He has pain that radiates into his inner thigh on the left side. Dr. Woods did prescribe him Cyclobenzaprine but he does not feel that it is helping and has been getting a dry mouth and cramping in the posterior left thigh. He has a follow up with Dr. Woods on 02-22-25. He has been to the ED multiple times due to pain. He states that the majority of his lower back pain is on his left side. The low back pain is constant. He rates his pain 8/10. He states he cannot sleep at night due to the pain. He reports numbness into his left arm at night. He also reports dexterity issues in the hands. He does drop items such as his keys. He reports early balance deficits. He denies a history of diabetes. He reports a history of two heart attacks and takes Clopidogrel daily. He also takes Aspirin 81mg daily. He does have six stents the last of which was placed a year and a half ago. He denies a history of strokes. Ortho Exam General General: Yes no acute distress Neurologic: Yes alert and Yes oriented x3 Psychologic: Yes reasonable and appropriate Spine SPINE TESTING CERVICAL THORACIC LUMBAR Musculoskeletal Strength 0=absent - 5=normal Details: Examination the back shows midline paraspinal tenderness bilaterally in lower lumbar spine. Neurologic motion of upper and lower extremity shows 5 x 5 power in all groups normal sensations in all dermatomes. Travis's is positive on the right. Romberg's is positive. Tandem gait shows mild imbalance. Coding Level of Care Code Off vis,est,level 4 Diagnoses Cervical myelopathy G95.9 Bulging of cervical intervertebral disc M50.30 Obesity (BMI 30-39.9) E66.9 Time Spent (min) 35 Assessment and Plan Assessment and Plan (1) Cervical myelopathy: Status: Acute (2) Bulging of cervical intervertebral disc: Status: Acute (3) Obesity (BMI 30-39.9): Status: Chronic Orders: Orders Cerv Spine 4 or 5 Views Today M54.2 - Cervicalgia Plan MRI cervical spine shows C3 7 disc degeneration with stenosis and cord compression without cord signal changes. x-rays and MRI of lumbar spine done recently. These show evidence of DISH. Reduced disc height and disc degeneration L5-S1 with mild foraminal stenosis noticed. 1. Cervical spine fusion - The patient is scheduled for surgery with post-operative care including early mobilization and use of a neck collar. - Follow-up x-rays will monitor healing, and a soft diet is recommended initially. 2. Numbness in bilateral arms - This symptom is likely related to cervical spine issues and is expected to improve after surgery. 3. Previous use of antiplatelet therapy - Discontinuation of Plavix and aspirin reduces the risk of bleeding complications during surgery. - Follow post-operative care instructions, including early mobilization and wearing a neck collar as advised. - Maintain a soft diet initially to ease swallowing difficulties. - Attend follow-up appointments for x-rays to monitor healing. - Avoid heavy lifting and excessive neck movements for the first three months post-surgery. At this time I recommend surgery given the cervical spinal cord compression, his progressively worsening dexterity and balance issues. We discussed the surgery in detail including risks, benefits, alternatives, what to expect post operatively, wearing the cervical collar and post operative restrictions. He would like to proceed with surgery. I recommend C3 7 ACDF with possible posterior C3-7 instrumented fusion. Discussed this procedure in detail and explained the risks, benefits and alternatives. The risks of surgery include but are not limited to infection, bleeding, injury to nerves and vessels, hematoma formation, dysphagia, dysphonia, recurrent laryngeal nerve injury, Ora syndrome, DVT, pulmonary embolism, pneumonia, atelectasis, cardiopulmonary event, pseudoarthrosis, hardware failure, adjacent segment degeneration, need for further surgery, nerve root injury, spinal cord injury. Answered all questions to the patient?s satisfaction. Patient understands and agrees to proceed with surgery. Consent was signed.Follow up two weeks post operatively or sooner if pain, swelling, numbness or associated symptoms, or concerns develop. All questions answered. Patient in agreement of plan.
[2025-04-27] MEDS: Midazolam 2 MG/2 ML Syringe IV (07:30)
[2025-04-27] MEDS: Lidocaine 1% (5 ml sdv) 5 ML Vial IV (07:40)
[2025-04-27] MEDS: fentaNYL 100 MCG/2 ML Ampul 200 MCG IV (09:47)
[2025-04-27] MEDS: TRANEXAMIC ACID 1,000 MG/10 ML ML 2000 MG IV (10:42)
[2025-04-27] MEDS: Bupiv/Epi 0.25% 30 ML Vial (12:04)
[2025-04-27] MEDS: Cefazolin 1 GM/5 ML Vial 4 GM IV (12:11)
--- NOTE | 2025-04-27 13:19 | PCM.OPRPT ---
Procedures Musculoskeletal 20xxx-29xxx: Other Procedure See Report Operative Report (Standard) Operative Information Date of Procedure: 04/27/25 Pre-Operative Diagnosis: C3-7 disc degeneration with stenosis, radiculomyelopathy Post-Operative Diagnosis: Same Surgery/Procedure Performed: C3-7 ACDF shopper insights manager: Yes First Assist: Paola Gould Tasks completed by chiropractor assistant: Closing, Removing tissue, Implanting device, Hemostasis: Electrocautery and Retracting Type of Anesthesia: General RN Documented Start/Stop Times: Operation Date: 04/27/25 07:30 Case Time Into Pre-Op 04/27/25 05:37 Anesthesia Start 04/27/25 07:30 Into Room 04/27/25 07:30 Procedure Start 04/27/25 08:19 Procedure End 04/27/25 13:12 Procedure Start Time: 08:19 Procedure Stop Time: 13:12 Select all DRAINS/GRAFTS/IMPLANTS that apply: Drains Drain details: Jessi , Graft Graft details: Structural allograft with cortical cancellous strut and Implanted device Implanted device details: Medtronic [place] Elite plate instrumentation Estimated Blood Loss: 70 cc Specimen collected: No Description of surgery: Preoperative diagnosis: C3-7 disc degeneration with stenosis, radiculomyelopathy Postoperative diagnosis: Same Name of procedure: C3-7 anterior cervical discectomy and fusion with plate instrumentation - Anterior cervical fusion C3-4, CPT code 38747 - Anterior plate instrumentation C3-7, CPT code 99737/59 - Anterior cervical fusion C4-5, CPT code 38896/51 - Anterior cervical fusion C5-6, CPT code 64451/51 - Anterior cervical fusion C6-7, CPT code 02324/51 -C3-4 structural allograft bone with DBX, CPT code 57244 - C4-5 structural allograft bone with DBX, CPT code 28200 - C5-6 structural allograft bone with DBX, CPT code 10731 - C6-7 structural allograft bone with DBX, CPT code 09375 Attending surgeon: Bowen Nagel M.D. Anesthesia: Gen. endotracheal Estimated blood loss: 70 mL Complications: None Instrumentation used: Medtronic [place] Elite plate, LASR corticocancellous block Indications: The patient is a pleasant 60-year-old gentleman who presented with neck pain, radicular symptoms, progressive difficulty with balance and dexterity. MRI showed C3-7 disc degeneration with central and foraminal stenosis with cord indentation without cord signal changes. In order to halt the progression of myelopathy, the patient requested surgical treatment. All risks and benefits of the procedure were explained to the patient. The risks include but are not limited to infection, bleeding, injury to nerves and vessels, vertebral artery injury, spinal cord injury, paralysis, vocal cord paralysis, injury to esophagus, pseudoarthrosis, need for further procedures, adjacent segment degeneration. Procedure: The patient was identified in the preoperative suite using unique patient identifiers. Skin was marked consent was taken and all questions were answered. The patient was then brought back to the operative room and a timeout was performed. General endotracheal anesthesia was given. Intraoperative neuro monitoring leads were applied. The patient was carefully positioned supine on a regular OR table. A lateral view with a C-arm was done to identify the level and to define the incision. The anterior neck was then prepped and draped in the usual fashion. A final timeout was then performed. A lateral oblique skin incision was taken to the left of midline. Subcutaneous tissue was then divided with Bovie. Platysma was identified and cut along the incision with scissors. The fascial interval between the sternocleidomastoid and the larynx was developed. Omohyoid was identified and retracted. The esophagus with the larynx was retracted medially to reach the prevertebral fascia. Marker x-ray was performed with bent spinal needle and disc space and levels were confirmed. Longus coli muscle was elevated on both sides at and above and below C3-7 discs. Self-retaining retractors were then placed. A long handle knife was then used to perform annulotomy at C3-4. Disc fragments were removed with the pituitary. [place] pins were placed in C3 and C4 for disc distraction. Curettes and bur was utilized to remove cartilage from the endplates. Discectomy was performed laterally up to the uncovertebral joints. Posterior osteophytes were thinned down with the bur and adequate decompression in the central and foraminal areas were performed and PLL was thinned out. Once the disc space was prepared, trials of various sizes were utilized. Thorough irrigation was given. 6 mm LASR cortical cancellous allograft bone large footprint was then fashioned in such a way that concavities were burred out inferiorly and superiorly and half cc of DBX (demineralized bone matrix) was squeezed into the cancellous portion. The graft was then inserted into the C3-4 disc space. The retractors were then repositioned and the procedure was repeated for C4-5, C5-6, C6-7 discs with complete discectomy. Graft sizes were 6 mm at with large footprint at C4-5, C5-6, and 7 mm at C6-7. The grafts were found to be in good apposition with good pullout strength. A 77 mm Medtronic [place] Elite plate was then fixed to C3-7 with 17 mm screws. A lateral x-ray was then taken to check the length of the screws. Both AP and lateral x-rays showed good positioning of plate and screws. The locking mechanism over the screw heads was then turned. Thorough irrigation was again given. Hemostasis was achieved. A [place] drain was then inserted. Closure was done with 3-0 Vicryl for the platysma and subcutaneous tissue layers and 4-0 Monocryl for the skin. Closure was done around the drain. Steri-Strips were applied and dressing was done with 4 x 4 gauze and Tegaderm. A cervical collar was then applied. The patient was then woken up from anesthesia extubated and taken to PACU in stable condition. From here, the patient will be transitioned to the floor. Intraoperative neuro monitoring was performed throughout this procedure. Motor evoked potentials were run periodically. All potentials remained at baseline throughout the procedure. I was present for the entire surgery and performed the surgery myself. Dosimetrist Paola Gould PA-C. My physician imaging assistant was a vital part of this case. They were important in appropriate retraction during the case, and protection of soft tissues during the procedure. Their intimate knowledge of the case and my steps aided in safe and expedient completion of the procedure as well as appropriate position of the patient during the surgery. They were also vital in assisting with closure under my direct supervision. Surgical Findings: See operative note Complications Complications: No
--- NOTE | 2025-04-27 13:23 | OP.PCM_ITS ---
Procedures Musculoskeletal 20xxx-29xxx: Other Procedure See Report Operative Report (Standard) Operative Information Date of Procedure: 04/27/25 Pre-Operative Diagnosis: C3-7 disc degeneration with stenosis, radiculomyelopathy Post-Operative Diagnosis: Same Surgery/Procedure Performed: C3-7 posterior spinal instrumented fusion addiction professional: Yes Global Process Owner: Paola Gould Tasks completed by retail event and sales assistant: Closing, Removing tissue, Implanting device, Hemostasis: Electrocautery and Retracting Type of Anesthesia: General RN Documented Start/Stop Times: Operation Date: 04/27/25 07:30 Case Time Into Pre-Op 04/27/25 05:37 Anesthesia Start 04/27/25 07:30 Into Room 04/27/25 07:30 Procedure Start 04/27/25 08:19 Procedure End 04/27/25 13:12 Procedure Start Time: 08:19 Procedure Stop Time: 13:12 Select all DRAINS/GRAFTS/IMPLANTS that apply: Graft Graft details: DBX and Implanted device Implanted device details: [place] fox PCSS Estimated Blood Loss: 70 cc Specimen collected: No Description of surgery: Preoperative diagnosis: C3-7 disc degeneration with stenosis, radiculomyelopathy Postoperative diagnosis: Same Name of procedures: C3-7 posterior instrumented fusion, prone: ? C3-4 posterior spinal fusion 96239 ? C3-7 posterior pedicle screw instrumentation 48272 ? C4-5 posterior fusion 28906/51 ? C5-6 posterior fusion 33036/51 ? C6-7 posterior fusion 75192/51 ? Allograft cancellous chips [id number] Attending Surgeon: Dr. Bowen Nagel Estimated blood loss: 70 mL (total for entire case) Anesthesia: General Complications: None Instrumentation: [employer] Cor[employer] PCSS Procedure: After the anterior procedure was complete, patient was carefully positioned prone on a regular OR table over parallel gel rolls and molded face pillow. All bony prominences were well-padded. Abdomen was free. Reverse Trendelenburg position was given. 2 C arm machines were positioned for AP and lateral views. A lateral C-arm was passed underneath and tilted away to allow the AP C arm to come from the head end. Post-flip Baseline neuro monitoring potentials were recorded. AP and lateral views were taken to make sure the patient was positioned with neutral rotation and levels were confirmed. Skin was then prepped and draped in the usual fashion. A final time-out was then performed. Skin marker was utilized to [place] on the skin in the midline, medial facet line, lateral facet line bilaterally. Endon view of the facets was taken and transversely marked on the skin. Spinal needle was then passed entering at the medial facet line going slightly laterally towards the facet joint starting at C3-4 on the left. Marcaine with epi was injected through this tract. Paramedian incision was made a centimeter above and below the needle. The same knife was utilized to make a vertical incision over the fascia as well. Facet finder #1 instrument was then passed vertically and then turned transversely and this was entered into the C3-4 left facet joint such that it was in the midline of the facet and directed somewhat laterally but still within the facet joint. After entering the facet joint this was malleted up to the stop. This was confirmed on AP and lateral view. Once adequate position was confirmed, guide instruments were passed to guide the rasps and the facet finder was removed. Rasps were used to decorticate the facet process above and below. Straight drill was then used. A 4 mm x 10 mm [employer] Cor[employer] PCSS titanium 5 cage was then packed with DBX was then inserted. This was confirmed again on AP lateral view to be in good position. 2 screws were placed 1 superiorly and 1 inferiorly at the facet process through the cage. Additional DBX was then packed on top of the cage and facet and guide instruments were removed. This process was then repeated for C4-5, C5-6, C6-7 facet on the left as well as C3-7 facets on the right. AP lateral C-arm showed good positioning of instrumentation. Hemostasis was achieved. Closure was done in layers with 0 Vicryls for the fascia, 2-0 Vicryls for the subcutaneous tissue, and rio for the skin. Dressings were applied covered with Tegaderm. The patient was then turned supine onto a hospital bed. Cervical collar was applied. The patient was extubated and taken to PACU in stable condition. The patient tolerated the procedure well and no complications occurred. [employer] PCSS instrumentation system was utilized in this case. No dural tear was identified intraoperatively. Neuromonitoring potentials stayed at baseline throughout the case. I was present for the entirety of the case and performed the surgery. Surgical Findings: See operative note Complications Complications: No
--- NOTE | 2025-04-27 13:42 | PCM.POST.ANE ---
Anesthesia: Postop Eval I Current Vital Signs Temperature: 98.1 F Pulse Rate: 96 Blood Pressure: 101/64 Respiratory Rate: 20 Pulse Ox: 93 Oxygen Delivery Method: Venturi Mask Oxygen Flow Rate (L/min): 10 Assessment Airway patent: Yes Spontaneous unlabored respirations: Yes Mental status: Asleep nausea: No Vomiting: No Anesthesia Complication: No Fluid Hydration Crystalloid volume administer (ml): 2,800 Total IV fluid infused: 2,800 Progress Note Anesthesia document: Postop Eval 1 completed: Yes
--- NOTE | 2025-04-27 14:03 | POSTOPAN2_ITS ---
Anesthesia Postop Eval I Sum Postop Eval Completion status Anesthesia document: Postop Eval 1 completed: Yes Anesthesia Postop Eval I Summary Anesthesia Postop Eval I Summary: Anesthesia Postop Eval I: Assessment Summary Airway patent Yes 04/27/25 13:43 [email or web address] Spontaneous unlabored Yes 04/27/25 13:43 [email or web address] respirations Mental status Asleep 04/27/25 13:43 [email or web address] nausea No 04/27/25 13:43 [email or web address] Vomiting No 04/27/25 13:43 [email or web address] Anesthesia Postop Eval I: Fluid Summary Crystalloid volume administer 2,800 04/27/25 13:43 [email or web address] (ml) Colloids volume administered ( ml) Blood Product volume administered (ml) Total IV fluid infused 2,800 04/27/25 13:43 [email or web address] Anesthesia Postop Eval I: Summary Notes Anesthesia Complication No 04/27/25 13:43 [email or web address] Anesthesia Complication Comment: Post-operative progress note Anesthesia: Postop Eval II Evaluation Mental status: Awake Pain Level: 3 nausea: No Vomiting: No
--- NOTE | 2025-04-27 14:03 | PCM.POSTANE2 ---
Anesthesia Postop Eval I Sum Postop Eval Completion status Anesthesia document: Postop Eval 1 completed: Yes Anesthesia Postop Eval I Summary Anesthesia Postop Eval I Summary: Anesthesia Postop Eval I: Assessment Summary Airway patent Yes 04/27/25 13:43 BIOSOLIDS MANAGEMENT [email or web address] Spontaneous unlabored Yes 04/27/25 13:43 BIOSOLIDS MANAGEMENT [email or web address] respirations Mental status Asleep 04/27/25 13:43 BIOSOLIDS MANAGEMENT [email or web address] nausea No 04/27/25 13:43 BIOSOLIDS MANAGEMENT [email or web address] Vomiting No 04/27/25 13:43 BIOSOLIDS MANAGEMENT [email or web address] Anesthesia Postop Eval I: Fluid Summary Crystalloid volume administer 2,800 04/27/25 13:43 BIOSOLIDS MANAGEMENT [email or web address] (ml) Colloids volume administered ( ml) Blood Product volume administered (ml) Total IV fluid infused 2,800 04/27/25 13:43 BIOSOLIDS MANAGEMENT [email or web address] Anesthesia Postop Eval I: Summary Notes Anesthesia Complication No 04/27/25 13:43 BIOSOLIDS MANAGEMENT [email or web address] Anesthesia Complication Comment: Post-operative progress note Anesthesia: Postop Eval II Evaluation Mental status: Awake Pain Level: 3 nausea: No Vomiting: No
--- NOTE | 2025-04-27 16:35 | PN.HOSP_ITS ---
Reason for Visit Chief Complaint: neck pain Subjective Subjective Pt seen and examined post op following C3-C7 spinal fusion per Dr. Nagel. He is currently resting in bed post op with complaints of neck soreness and sore throat. He has no numbness or tingling. He has no CP/pressure, no SOB, and no N/V. Objective Data Objective Data Vital Signs: Vital Signs Temp Pulse Resp BP Pulse Ox O2 Del Method O2 Flow Rate 98.1 F 105 H 16 145/88 H 94 Nasal Cannula 2 04/27/25 16:17 04/27/25 16:17 04/27/25 16:17 04/27/25 16:17 04/27/25 16:17 04/27/25 16:17 04/27/25 16:17 Oxygen Flow Rate (L/min) 2 Oxygen Delivery Method Nasal Cannula Weight: 100.516 kg Body Mass Index (BMI) 34.7 Intake & Output: Intake and Output for Last 24 Hours 04/25/25 04/26/25 04/27/25 23:59 23:59 23:59 Intake Total 1700 / 1700 Output Total 200 / 200 Balance 1500 / 1500 Lab / Micro Data 04/13/25 09:56 04/13/25 09:56 Labs: Laboratory Results - last 24 hr 04/27/25 05:55: POC Glucose 85 Micro: Microbiology 04/13/25 09:56 Swab (Method) Nasal Screen MRSA/MSSA - Final Assessment & Plan Assessment/Plan (1) Cervical myelopathy: PLAN: 1. Cervical myelopathy s/p C3-C7 cervical fusion today per Dr. Nagel. Appears comfortable tho with some ongoing neck discomfort. Pt had TXA, cefazolin, TXA perioperatively. AM CBC and BMP ordered. 2. PMhx CAD with prior coronary artery dissection - pt of [facility]. Hx 6 stents in the past. 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 Pt also on losartan. Pt states he still takes aspirin tho this is not listed in his home meds so will need to be clarified if he is to resume this. 3. PMhx SHARITA - pt denies using any device or o2 for this 4. HTN - stable. continue losartan 5. HLD - zetia, fenofibrate 6. GERD - on PPI DVT ppx: SCDs Thank you for the opportunity to participate in the care of this patient. This patient was seen by Tavo Perla PA-C under the supervision of Dr. Duarte.
[2025-04-27] MEDS: 0.9% Saline Lock 10 ML Syringe IV ×3 (16:37→23:33)
[2025-04-27] MEDS: Cefazolin 2 GM in 0.9% Normal Saline (100mL Bag) 100 ML IV ×2 (16:39→23:31)
[2025-04-27] MEDS: Senna/Docusate Sodium 1 Tablet 2 TABLET PO (21:42)
[2025-04-28 01:42] VITALS: BP 111/72; PULSE 89; RESP 16; TEMP 36.9; O2SAT 94
[2025-04-28] MEDS: 0.9% Saline Lock 10 ML Syringe IV ×3 (01:55→13:45)
--- NOTE | 2025-04-28 05:00 | RAD_ITS ---
PROCEDURE: CERV SPINE 2 OR 3 VIEWS 04/28/2025 REASON FOR EXAM: S/P CERVICAL FUSION TECHNIQUE: Procedure Code: RADSPCL Modality: DX Procedure: CERV SPINE 2 OR 3 VIEWS COMPARISON: 04/27/2025. FINDINGS: Unremarkable cervical fusion metallic hardware at C3, C4, C5, C6 and C7 levels. Normal craniovertebral junction. Normal anterior atlantoaxial articulation. Normal odontoid process. Straightening of the cervical lordosis. There are diffuse spondylotic changes. Findings are demonstrated to by diffuse disc space narrowing, osteophyte formation and degenerative endplate sclerosis. There is diffuse facet joint arthropathy with secondary bilateral neural foramina narrowing. No fracture or dislocation is seen. No aggressive lytic or blastic bony lesion is noted. Surgical drain is noted. RAD/Cerv Spine 2 or 3 Views IMPRESSION: Unremarkable metallic hardware from anterior cervical fusion. No radiographic evidence of an acute abnormality. [facility]
[2025-04-28 05:44] VITALS: BP 124/79; PULSE 86; RESP 18; TEMP 36.8; O2SAT 95
[2025-04-28 07:40] LABS: Hematocrit 39.9 % (40-54); Hemoglobin 13.5 g/dL (13.0-16.5); Immature Granulocytes Count 0.040 X10^3/uL (0.0-0.0); Mean Corp Hgb Conc 33.8 g/dL (32-36); Mean Corpuscular Volume 90.1 fL (80-94); Mean Platelet Vol. 10.3 fl (6.2-12.0); NRBC Flagged by Analyzer 0 % (0-5); POSITIVE DIFFERENTIAL YES; Platelet Count 252 K/mm3 (150-450); RBC Distribution Width CV 13.4 % (11.6-14.6); RBC Distribution Width SD 44.4 fl (35.1-43.9); Red Blood Count 4.43 M/mm3 (4.6-6.2); White Blood Count 12.2 K/mm3 (4.4-11.0)
[2025-04-28] MEDS: Senna/Docusate Sodium 1 Tablet 2 TABLET PO (08:03)
[2025-04-28 08:08] LABS: Anion Gap 11 (5-15); BUN 16 mg/dL (4-19); BUN/Creat Ratio 12.2 RATIO (10-20); Calcium,Total 9.3 mg/dL (7.6-11.0); Carbon Dioxide 21.3 mmol/L (21.0-32.0); Chloride 104 mmol/L (98-108); Estimated Creatinine Clearance 68.59 ml/min (50-250); Glucose 132 mg/dL (70-99); Potassium 4.3 mmol/L (3.3-5.1)
[2025-04-28 09:42] VITALS: BP 136/92; PULSE 80; RESP 18; TEMP 36.6; O2SAT 96
--- NOTE | 2025-04-28 12:49 | DCINST_ITS ---
Discharge Instructions DC O2, CPAP, BIPAP needs Home O2 Discharge instructions: No Follow Up Care Test Results: Test results from this visit will be discussed in further detail at your follow- up appointment, if applicable. Discharge Plan Admission Admit Date/Time: 04/27/25 13:25 Attending Provider: Bowen Nagel Primary Care Provider: Mendoza Harris Consulting Providers: Afshin Samson Instructions Patient Instructions: Cervical Fusion Dc Additional Instructions / Restrictions: Keep Tegaderm and gauze clean and dry. After 5 days remove the Tegaderm and gauze and cover incision with a Band-Aid. Replace Band-Aid daily thereafter. Wear cervical collar full-time for the first 2 weeks. Eat soft solid foods as needed for dysphagia. Sleep in a recliner to help with swelling. No bending, lifting, twisting. Follow-up in clinic in 2 weeks. Discharge Orders/Prescriptions Prescriptions: New acetaminophen 500 mg Tablet 1,000 mg PO Q8 Qty: 30 0RF baclofen 10 mg Tablet 10 mg PO 4X/DAY PRN (Reason: pain/spasms) Qty: 30 0RF meloxicam 15 mg Tablet 15 mg PO DAILY Qty: 30 0RF oxycodone 5 mg Tablet 2.5 - 5 mg PO Q6H PRN (Reason: pain) 7 Days Qty: 28 0RF sennosides-docusate sodium [Stimulant Laxative Plus] 8.6-50 mg Tablet 2 tab PO BID PRN (Reason: constipation) Qty: 30 0RF Continued fenofibrate 160 mg tablet 160 mg PO DAILY losartan 25 mg tablet 12.5 mg PO DAILY Patient Comments: HAS BEEN TAKING 12.5 MG DAILY omeprazole 20 mg capsule,delayed release(DR/EC) 20 mg PO QDAY artificial tears(hypromellose) 0.3 % drops 1 drp EACH EYE BID PRN (Reason: dry eye(s)) cholecalciferol (vitamin D3) 50 mcg (2,000 unit) capsule 50 mcg PO QODAY Rx Instructions: pt takes at night folic acid 800 mcg tablet 800 mcg PO BID doxazosin [Cardura] 4 mg tablet 4 mg PO QHS ezetimibe 10 mg tablet 10 mg PO DAILY Qty: 90 3RF Discontinued baclofen 10 mg tablet 10 mg PO 4X/DAY Referrals / Follow Up: Mendoza Harris MD [Primary Care Provider, Medical] Disposition Disposition (needs filled in before D/C Order can be placed): Home, Self Care
--- NOTE | 2025-04-28 13:09 | CASEMGMT ---
RN?CM?ASSESSMENT ? RN?CM?to room to meet with patient for initial transition planning/care coordination?assessment.?RN?CM?introduced self and role at [facility].? Pt voices understanding and consents to?assessment?at this time.? Pt resting in bed in no distress at this time.? Significant other, Mila, @ bedside and pt agreeable to her being present during assessment. Pt is A/O at this time and answers all questions appropriately.?? Care providers, pharmacy, and demographics verified/updated at this time. ? Strata: 1 PCP: Dr Mendoza Harris Specialists: Dr Nagel-ortho, Dr Woods-pain mgnt, Dr Senior-urology Preferred Pharmacy: [facility]. Pt would like [id number]. Pharmacy notified. Insurance: [facility] Prescription Benefit:?yes Living Will/HPOA:?Pt does not currently have LW/HCPOA and would like to complete HCPOA. Joana KITCHEN, made aware. Pt made aware if SW unable to complete prior to discharge that he can schedule an appt w/SW as an OP to complete documents. LNOK: Sig other, Mila. Pt states he is not in contact w/his biological child. Living Arrangements: Lives w/sig other, Mila. Independent. Transportation:?Pt & Mila both drive. DME: ?States has the following DME:?shower chair. Pt currently has cervical collar in place & will dc home w/it. ?Pt states no need for further DME at this time.? ? Pt wishes to return home and states has no concerns with going home. ? PLAN:?? ? Amy BSN?RN?CM
[2025-04-28 13:37] VITALS: BP 158/77; PULSE 87; RESP 18; TEMP 36.7; O2SAT 97
--- NOTE | 2025-04-28 13:46 | CASEMGMT ---
Social Work SW met with pt and assisted in completing a HCPOA naming his significant other Mila Segura. Pt choosing not to complete Living Will. Original given to pt and copy placed on pt chart. ROMAINE Watts
--- NOTE | 2025-04-28 13:48 | PHA.DC_ITS ---
Pharmacy [facility] has performed discharge medication counseling for this patient. The patient was counseled on the following discharge medications and changes in medications for homegoing review. - Baclofen 10 mg tablet, Acetaminophen 500 mg tablet, Meloxicam 15 mg tablet The Reason for Use, instructions for use, and potential side effects were reviewed for all new medications. The patient's questions regarding all of their medications were answered. - The patient did NOT want his oxycodone prescription or senna/docusate filled as he had previously reported itching to Vicodin in the past. The patient was able to verbally demonstrate an understanding of their discharge medications. Medications at Discharge Home Medications fenofibrate 160 mg tablet 160 mg PO DAILY CHOLESTEROL 06/12/23 ezetimibe 10 mg tablet 10 mg PO DAILY CHOLESTEROL #90 TABLETS 05/16/24 artificial tears(hypromellose) 0.3 % eye drops 1 drp EACH EYE BID PRN dry eye(s) 10/11/24 cholecalciferol (vitamin D3) 50 mcg (2,000 unit) capsule 50 mcg PO QODAY SUPPLEMENT 10/11/24 folic acid 800 mcg tablet 800 mcg PO BID SUPPLEMENT 10/11/24 losartan 25 mg tablet 12.5 mg PO DAILY BP 02/13/25 omeprazole 20 mg capsule,delayed release 20 mg PO QDAY GERD 02/13/25 doxazosin 4 mg tablet (Cardura) 4 mg PO QHS prostate 04/27/25 acetaminophen 500 mg tablet 1,000 mg (2 x 500 mg) PO Q8 #30 tabs 04/28/25 baclofen 10 mg tablet 10 mg PO 4X/DAY PRN pain/spasms #30 tabs 04/28/25 meloxicam 15 mg tablet 15 mg PO DAILY #30 tabs 04/28/25 oxycodone 5 mg tablet 2.5 - 5 mg (0.5 - 1 x 5 mg) PO Q6H PRN pain 7 days #28 tabs 04/28/25 sennosides 8.6 mg-docusate sodium 50 mg tablet (Stimulant Laxative Plus) 2 tab PO BID PRN constipation #30 tabs 04/28/25
== END 2025-04-28 14:14 | disposition home or self-care (01) | DRG 472 ==
LOC: MS3 04-28 06:48
PROVIDERS: Student in an Organized Health Care Education/Training Program; Admitting Provider Orthopaedic Surgery Orthopaedic Surgery of the Spine; PCP Family Medicine; Referring Provider Orthopaedic Surgery Orthopaedic Surgery of the Spine; Visit Provider Orthopaedic Surgery Orthopaedic Surgery of the Spine
PROC: 0RG20A0 Fusion of 2 or more Cervical Vertebral Joints with Interbody Fusion Device, Anterior Approach, Anterior Column, Open Approach (ICD-10-PCS; CPT 22551; principal; 2025-04-27 07:00)
DX: M48.02 Spinal stenosis, cervical region (principal); M50.01 Cervical disc disorder with myelopathy, high cervical region; I10 Essential (primary) hypertension; E66.9 Obesity, unspecified; K21.9 Gastro-esophageal reflux disease without esophagitis; E78.00 Pure hypercholesterolemia, unspecified; I25.10 Atherosclerotic heart disease of native coronary artery without angina pectoris; M50.11 Cervical disc disorder with radiculopathy, high cervical region; I25.2 Old myocardial infarction; Z95.5 Presence of coronary angioplasty implant and graft; Z68.36 Body mass index [BMI] 36.0-36.9, adult; Z79.82 Long term (current) use of aspirin; Z79.899 Other long term (current) drug therapy
CPT/HCPCS: 36415; 72040; 76000; 80048; 82962; 83036; 83735; 85025; 86850; 86900; 86901; 87081; 94668; C1713; A4216; J2405